=== PATIENT | male | born 1960 | race Caucasian/White ===

== ENCOUNTER 2019-11-09 18:56 | Emergency (ER) | payer OTHER ==
[~2019-11-09] VITALS: Ht 195.6 cm; Wt 113.4 kg
[2019-11-09] MEDS ORDERED: SODIUM CHLORIDE 0.9% 1000ML 1,000 ML IV SCH (19:15)
--- NOTE | 2019-11-09 20:02 | Emergency Department Note ---
History of Present Illnes History of Present Illness Chief Complaint: COVID PUI History of Present Illness This is a 58 year old male Chief Complaint Comment called out by ems for c/o lethargy/diarrhea/hypotension. Per EMS patient is a resident of a [facility]. [facility] told EMS the patient has been more lethargic lately and initially blood pressure was in the 80s systolic. This was resolved with 400 cc crystalloid. Endorses LUQ/LLQ abdominal pain. No hypotension noted in the ED. Shortly after initial exam patient wishes to leave. Historian: Natural Resource Officer/EMS Arrival Mode: EMS Additional Treatment INVESTIGATOR INTERNAL AFFAIRS: n/a Therapeutic Recreation Director Required: No Onset (how long ago): day(s) (1) Location: LLQ pain Quality: Sharp Severity: moderate Onset quality: sudden Duration (how long): day(s) (1) Timing of current episode: constant Progression: worsening Chronicity: new Context: Denies recent illness Relieving factors: none Exacerbating factors: none Associated symptoms: Reports denies other symptoms Treatments prior to arrival: none Past Medical/Family History Physician Review I have reviewed the patient's past medical and family history. Any updates have been documented here. Past Medical History Recent Fever: No Clinical Suspicion of Infectio: No New/Unexplained Change in Ment: No Social History Physically hurt or threatened: No Review of Systems Review of Systems Constitutional: Reports as per HPI, Reports weakness EENTM: Reports no symptoms Cardiovascular: Reports no symptoms Respiratory: Reports no symptoms Gastrointestinal: Reports abdominal pain (LLQ) Genitourinary: Reports no symptoms Musculoskeletal: Reports no symptoms Integumentary: Reports no symptoms Neurological: Reports no symptoms Psychological: Reports no symptoms Endocrine: Reports no symptoms Hematological/Lymphatic: Reports no symptoms Physical Exam Related Data Allergies: Coded Allergies: morphine (Verified Allergy, Unknown, 11/09/19) oxycodone (Verified Allergy, Unknown, 11/09/19) Triage Vital Signs Vital Signs Date Time Temp Pulse Resp B/P (MAP) Pulse Ox O2 Delivery O2 Flow Rate FiO2 11/09/19 19:47 98.5 89 16 98/54 89 Nasal Cannula 3.0 Vital signs reviewed: Yes Physical Exam CONSTITUTIONAL Constitutional: Present well-developed, Present well-nourished HENT HENT: Present normocephalic, Present atraumatic, Present oropharynx clear/moist, Present nose normal HENT L/R: Present left ext ear normal, Present right ext ear normal EYES Eyes: Reports PERRL, Reports conjunctivae normal NECK Neck: Present ROM normal PULMONARY Pulmonary: Present effort normal, Present breath sounds normal CARDIOVASCULAR Cardiovascular: Present regular rhythm, Present heart sounds normal, Present capillary refill normal, Present normal rate GASTROINTESTINAL Abdominal: Present soft, Present bowel sounds normal, Present tender (LLQ) GENITOURINARY Genitourinary: Present exam deferred SKIN Skin: Present warm, Present dry MUSCULOSKELETAL Musculoskeletal: Present ROM normal NEUROLOGICAL Neurological: Present alert, Present oriented x 3, Present no gross motor or sensory deficits PSYCHOLOGICAL Psychological: Present mood/affect normal, Present judgement normal Results Laboratory Lab results reviewed: Yes Imaging Imaging results reviewed: Yes Assessment & Plan Medical Decision Making MDM 58-year-old male presents for left lower quadrant abdominal pain, diarrhea, fatigue. Examination seen for left lower quadrant tenderness on exam. Vital signs initially were 80 systolic for EMS but has since largely improved to normal limits. No hypotension in the ED here. He is currently hemodynamically stable. Initial differential includes diverticulitis versus coronavirus versus gastroenteritis versus dehydration. Patient then shortly refuses further examination or workup. I discussed with him that without an appropriate workup I cannot guarantee that he will not suffer immediate consequences such as at home. He states he understands this and is able to repeat information back to me. He is alert and oriented. He still wishes to be discharged back to [facility]. Patient is refusing further medical care. Reassessment Reassessment time: 20:01 Reassessment NAD well appearing Assessment & Plan Final Impression: (1) Fatigue Depart Disposition: AGAINST MEDICAL ADVICE Last Vital Signs Date Time Temp Pulse Resp B/P (MAP) Pulse Ox O2 Delivery O2 Flow Rate FiO2 11/09/19 19:47 98.5 89 16 98/54 89 Nasal Cannula 3.0 Medications in the ED Sodium Chloride 1,000 ml @ 100 mls/hr Q10H IV ; Start 11/09/19 at 19:15; Stop 12/09/19 at 19:14 JAMES PARKER MD Nov 09, 2019 20:02
[2019-11-09 20:08] LABS: BASOPHILS # (AUTO) 0.1 (0.0-0.1); BASOPHILS % 0.4 % (0.0-1.0); EOSINOPHILS # (AUTO) 0.2 (0.0-0.4); EOSINOPHILS % 1.2 % (0.0-6.0); HEMATOCRIT 28.2 % (38.2-49.6); HEMOGLOBIN 8.9 g/dL (14.0-18.0); LYMPHOCYTES # (AUTO) 0.5 (1.0-3.2); LYMPHOCYTES % 3.7 % (18.0-39.1); MEAN CORPUSCULAR HEMOGLOBIN 26.6 pg (28-32); MEAN CORPUSCULAR HGB CONC 31.6 g/dL (31-35); MEAN CORPUSCULAR VOLUME 84.4 fL (81-99); MONOCYTES # (AUTO) 1.5 (0.2-0.8); MONOCYTES % 11.1 % (4.4-11.3); NEUTROPHILS % 65.7 % (38.7-80.0); PLATELET COUNT 339 x10e3/uL (140-360); RED BLOOD COUNT 3.34 x10e6/uL (4.3-5.7); RED CELL DISTRIBUTION WIDTH 15.9 % (11.7-14.4)
--- NOTE | 2019-11-09 20:27 | NUR ---
EMS CALLED FOR TX BACK TO [facility]; PT IS REFUSING ALL CARE. SPOKE WITH LAILA. ETA APPROX. 30-[address] PARKER EXPLAINED TO THE PT THE RISKS AND THE PT. VERBALIZED UNDERSTANDING
[2019-11-09 20:37] LABS: ALBUMIN 1.6 g/dL (3.5-5.0); ALBUMIN/GLOBULIN RATIO 0.5 (0.8-2.0); ALKALINE PHOSPHATASE 83 IU/L (40-150); ANION GAP 14.2 mmol/L (8-16); BLOOD UREA NITROGEN 25 mg/dL (7-26); BUN/CREATININE RATIO 24 (6-25); CALCIUM 7.5 mg/dL (8.4-10.2); CARBON DIOXIDE 27 mmol/L (22-29); CHLORIDE 99 mmol/L (98-107); CREATININE, SERUM 1.04 mg/dL (0.72-1.25); EST GLOMERULAR FILTRATION RATE > 60 ML/MIN (60-); GLUCOSE 106 mg/dL (74-118); POTASSIUM 3.2 mmol/L (3.5-5.1); SODIUM 137 mmol/L (136-145)
[2019-11-09 20:38] LABS: ALANINE AMINOTRANSFERASE < 6 IU/L (0-55)
== END 2019-11-09 21:22 | disposition left against medical advice (07) ==
LOC: ER 20:30
DX: R53.83 Other fatigue (principal); R10.32 Left lower quadrant pain; R19.7 Diarrhea, unspecified
CPT/HCPCS: 36415; 80053; 83690; 84484; 85025; 99284; J7030

== ENCOUNTER 2019-11-14 08:20 | Inpatient (IN) | payer MEDICARE, OTHER ==
[~2019-11-14] VITALS: Ht 193 cm; Wt 97.2 kg
[2019-11-14] MEDS ORDERED: SODIUM CHLORIDE 0.9% 500ML 500 ML IV STA (08:33)
[2019-11-14 09:07] LABS: BASOPHILS % 0.1 % (0.0-1.0); EOSINOPHILS # (AUTO) 0.1 (0.0-0.4); EOSINOPHILS % 0.3 % (0.0-6.0); HEMATOCRIT 31.3 % (38.2-49.6); LYMPHOCYTES # (AUTO) 1.1 (1.0-3.2); LYMPHOCYTES % 4.8 % (18.0-39.1); MEAN CORPUSCULAR HEMOGLOBIN 26.5 pg (28-32); MEAN CORPUSCULAR HGB CONC 31.9 g/dL (31-35); MONOCYTES # (AUTO) 1.1 (0.2-0.8); MONOCYTES % 4.6 % (4.4-11.3); NEUTROPHILS # (AUTO) 14.4 (2.1-6.9); NEUTROPHILS % 60.9 % (38.7-80.0); PLATELET COUNT 287 x10e3/uL (140-360); RED BLOOD COUNT 3.77 x10e6/uL (4.3-5.7); RED CELL DISTRIBUTION WIDTH 16.1 % (11.7-14.4)
[2019-11-14 09:42] LABS: ALBUMIN 1.7 g/dL (3.5-5.0); ALBUMIN/GLOBULIN RATIO 0.5 (0.8-2.0); ALKALINE PHOSPHATASE 81 IU/L (40-150); ANION GAP 14.6 mmol/L (8-16); BLOOD UREA NITROGEN 20 mg/dL (7-26); BUN/CREATININE RATIO 22 (6-25); CALCIUM 7.7 mg/dL (8.4-10.2); CARBON DIOXIDE 26 mmol/L (22-29); CHLORIDE 98 mmol/L (98-107); CREATININE, SERUM 0.92 mg/dL (0.72-1.25); EST GLOMERULAR FILTRATION RATE > 60 ML/MIN (60-); GLUCOSE 82 mg/dL (74-118); SODIUM 136 mmol/L (136-145)
[2019-11-14] MEDS ORDERED: HALOPERIDOL LACTATE 5 MG/ML VIAL IM STA (09:44)
[2019-11-14 09:46] LABS: ALANINE AMINOTRANSFERASE < 6 IU/L (0-55); POTASSIUM 2.6 mmol/L (3.5-5.1)
[2019-11-14] MEDS ORDERED: CIPROFLOXACIN 400 MG/D5W 200ML 200 ML IV STA (09:48)
[2019-11-14] MEDS ORDERED: METRONIDAZOLE 500MG/NS 100ML 100 ML IV ONE (10:30)
[2019-11-14] MEDS ORDERED: POTASSIUM CHLORIDE 20MEQ/100ML 200 ML IV ONE (11:15)
[2019-11-14] MEDS ORDERED: LORAZEPAM INJ 2 MG/ML VIAL IV ONE (11:45)
[2019-11-14] MEDS ORDERED: LORAZEPAM INJ 2 MG/ML VIAL IM ONE (12:00)
[2019-11-14] MEDS ORDERED: IOPAMIDOL 370 MG/ML 200 ML INFUS..BTL INJ ONE (12:01)
[2019-11-14] MEDS ORDERED: SODIUM CHLORIDE 0.9% 50ML 50 ML ONE (12:01)
[2019-11-14] MEDS ORDERED: ZIPRASIDONE 20 MG VIAL IM STA (12:06)
[2019-11-14] MEDS ORDERED: LORAZEPAM INJ 2 MG/ML VIAL ONE (13:34)
[2019-11-14 17:43] VITALS: BP 98/78
[2019-11-14 17:49] VITALS: BP 98/78
[2019-11-14 18:41] LABS: INR 0.92; PROTHROMBIN TIME 12.8 seconds (11.9-14.5)
[2019-11-14 18:42] LABS: PARTIAL THROMBOPLASTIN TIME 27.5 seconds (23.8-35.5)
[2019-11-14] MEDS ORDERED: ONDANSETRON HCL INJ 2MG/ML 2ML 2 MG/ML VIAL IV PRN (19:30)
[2019-11-14] MEDS ORDERED: SODIUM CHLORIDE 0.9% 1000ML 1,000 ML IV SCH (19:30)
[2019-11-14 20:00] VITALS: BP 93/60
[2019-11-14] MEDS ORDERED: POTASSIUM CHLORIDE 10MEQ/100ML 100 ML INJ ONE (20:50)
[2019-11-14 21:00] VITALS: BP 93/60
[2019-11-14] MEDS: ENOXAPARIN SOD INJ 40 MG/0.4 ML SYR SC SCH (21:15)
[2019-11-14] MEDS: KCL 20MEQ/.9 SOD CHL 1,000 ML IV SCH (21:15)
[2019-11-14] MEDS ORDERED: METRONIDAZOLE 500MG/NS 100ML 100 ML IV SCH (22:00)
[2019-11-14] MEDS: CIPROFLOXACIN 400 MG/D5W 200ML 200 ML IV SCH (22:55)
[2019-11-15] VITALS (10 sets, daily range): BP systolic 90–133; BP diastolic 53–83
[2019-11-15] MEDS: LORAZEPAM INJ 2 MG/ML VIAL IV PRN ×2 (01:25→10:09)
[2019-11-15 05:02] LABS: BASOPHILS % 0.1 % (0.0-1.0); LYMPHOCYTES % 4.1 % (18.0-39.1); MEAN CORPUSCULAR HEMOGLOBIN 26.2 pg (28-32); MEAN CORPUSCULAR VOLUME 84.3 fL (81-99); MONOCYTES # (AUTO) 1.3 (0.2-0.8); MONOCYTES % 5.1 % (4.4-11.3); NEUTROPHILS # (AUTO) 15.1 (2.1-6.9); NEUTROPHILS % 61.7 % (38.7-80.0); PLATELET COUNT 223 x10e3/uL (140-360); RED BLOOD COUNT 3.44 x10e6/uL (4.3-5.7); RED CELL DISTRIBUTION WIDTH 16.2 % (11.7-14.4)
[2019-11-15 05:18] LABS: ALBUMIN 1.6 g/dL (3.5-5.0); ALBUMIN/GLOBULIN RATIO 0.5 (0.8-2.0); ALKALINE PHOSPHATASE 72 IU/L (40-150); ANION GAP 10.6 mmol/L (8-16); BLOOD UREA NITROGEN 17 mg/dL (7-26); BUN/CREATININE RATIO 21 (6-25); CALCIUM 7.4 mg/dL (8.4-10.2); CARBON DIOXIDE 27 mmol/L (22-29); CHLORIDE 103 mmol/L (98-107); CREATININE, SERUM 0.82 mg/dL (0.72-1.25); EST GLOMERULAR FILTRATION RATE > 60 ML/MIN (60-); GLUCOSE 79 mg/dL (74-118); SODIUM 138 mmol/L (136-145)
[2019-11-15 05:32] LABS: ALANINE AMINOTRANSFERASE < 6 IU/L (0-55)
[2019-11-15 05:40] LABS: POTASSIUM 2.6 mmol/L (3.5-5.1)
[2019-11-15] MEDS: METRONIDAZOLE 500MG/NS 100ML 100 ML IV SCH ×3 (05:50→17:42)
[2019-11-15] MEDS ORDERED: POTASSIUM CHLORIDE 20 MEQ TAB CR PO STA (05:51)
[2019-11-15 06:02] LABS: FERRITIN 949.96 ng/mL (21.81-274.66)
[2019-11-15] MEDS ORDERED: POTASSIUM CHLORIDE 20MEQ/100ML 100 ML IV ONE ×4 (06:30→12:30)
[2019-11-15] MEDS ORDERED: POTASSIUM CHLORIDE 20MEQ/15ML UDC NG ONE (06:40)
[2019-11-15 06:41] LABS: ANISOCYTOSIS SLIGHT; BAND NEUTROPHILS % (MANUAL) 1 %; LYMPHOCYTES % (MANUAL) 3 % (19-48); MONOCYTES % (MANUAL) 2 % (3.4-9.0); MYELOCYTES % (MANUAL) 16 % (0-0); NEUTROPHILS % (MANUAL) 78 % (40-74)
[2019-11-15 06:42] LABS: ELLIPTOCYTE, RBC SLIGHT; OVALOCYTES FEW; SCHISTOCYTES RARE
[2019-11-15 06:43] LABS: PLATELET ESTIMATE ADEQUATE; PLATELET MORPHOLOGY COMMENT FEW LARGE; RBC MORPHOLOGY COMMENT ABNORMAL
[2019-11-15] MEDS: LACTOBACILLUS ACIDOPHILUS CAPSULE PO SCH ×2 (08:54→17:42)
[2019-11-15] MEDS: ACETAMINOPHEN 325 MG TAB PO PRN (10:09)
[2019-11-15] MEDS: KCL 20MEQ/.9 SOD CHL 1,000 ML IV SCH ×2 (10:51→22:39)
[2019-11-15] MEDS: CIPROFLOXACIN 400 MG/D5W 200ML 200 ML IV SCH ×2 (11:23→22:04)
[2019-11-15] MEDS ORDERED: OLANZAPINE 5 MG TAB PO PRN (13:30)
[2019-11-15] MEDS: HALOPERIDOL LACTATE 5 MG/ML VIAL IM PRN (14:28)
[2019-11-15] MEDS: ENOXAPARIN SOD INJ 40 MG/0.4 ML SYR SC SCH (17:42)
[2019-11-15] MEDS: LORAZEPAM INJ 2 MG/ML VIAL IM PRN ×2 (17:42→23:52)
[2019-11-15] MEDS: OLANZAPINE 5 MG TAB PO SCH (20:29)
[2019-11-16] VITALS (7 sets, daily range): BP systolic 101–153; BP diastolic 55–86
[2019-11-16] MEDS: METRONIDAZOLE 500MG/NS 100ML 100 ML IV SCH ×3 (00:02→13:00)
[2019-11-16] MEDS ORDERED: ALBUMIN 25% 12.5GM 0.25 GM/ML BTL IV ONE (00:30)
[2019-11-16 05:16] LABS: BASOPHILS % 0.1 % (0.0-1.0); EOSINOPHILS % 0.1 % (0.0-6.0); HEMATOCRIT 27.7 % (38.2-49.6); HEMOGLOBIN 8.6 g/dL (14.0-18.0); LYMPHOCYTES # (AUTO) 1.2 (1.0-3.2); LYMPHOCYTES % 6.4 % (18.0-39.1); MEAN CORPUSCULAR HEMOGLOBIN 26.5 pg (28-32); MEAN CORPUSCULAR VOLUME 85.5 fL (81-99); MONOCYTES # (AUTO) 1.2 (0.2-0.8); MONOCYTES % 6.3 % (4.4-11.3); NEUTROPHILS # (AUTO) 11.2 (2.1-6.9); NEUTROPHILS % 59.1 % (38.7-80.0); PLATELET COUNT 190 x10e3/uL (140-360); RED BLOOD COUNT 3.24 x10e6/uL (4.3-5.7); RED CELL DISTRIBUTION WIDTH 16.2 % (11.7-14.4)
[2019-11-16 05:37] LABS: ANION GAP 11.8 mmol/L (8-16); BLOOD UREA NITROGEN 13 mg/dL (7-26); BUN/CREATININE RATIO 18 (6-25); CALCIUM 7.2 mg/dL (8.4-10.2); CARBON DIOXIDE 23 mmol/L (22-29); CHLORIDE 108 mmol/L (98-107); CREATININE, SERUM 0.74 mg/dL (0.72-1.25); EST GLOMERULAR FILTRATION RATE > 60 ML/MIN (60-); GLUCOSE 75 mg/dL (74-118); SODIUM 140 mmol/L (136-145)
[2019-11-16 05:46] LABS: POTASSIUM 2.8 mmol/L (3.5-5.1)
[2019-11-16] MEDS: LORAZEPAM INJ 2 MG/ML VIAL IM PRN ×3 (05:55→19:57)
[2019-11-16] MEDS: ALBUMIN 25% 12.5GM 0.25 GM/ML BTL IV SCH ×3 (06:00→17:43)
[2019-11-16] MEDS ORDERED: POTASSIUM CHLORIDE 20MEQ/15ML UDC NG ONE (06:55)
[2019-11-16 07:00] LABS: BAND NEUTROPHILS % (MANUAL) 3 %; EOSINOPHILS % (MANUAL) 1 % (0-7); LYMPHOCYTES % (MANUAL) 7 % (19-48); MONOCYTES % (MANUAL) 2 % (3.4-9.0); MYELOCYTES % (MANUAL) 17 % (0-0); NEUTROPHILS % (MANUAL) 70 % (40-74)
[2019-11-16 07:01] LABS: ANISOCYTOSIS SLIGHT; ELLIPTOCYTE, RBC SLIGHT; OVALOCYTES FEW; PLATELET ESTIMATE ADEQUATE; RBC MORPHOLOGY COMMENT ABNORMAL; SCHISTOCYTES RARE
[2019-11-16 07:02] LABS: PLATELET MORPHOLOGY COMMENT NORMAL
[2019-11-16] MEDS: KCL 20MEQ/.9 SOD CHL 1,000 ML IV SCH ×3 (08:39→22:52)
[2019-11-16] MEDS ORDERED: POTASSIUM CHLORIDE 20 MEQ TAB CR PO SCH ×2 (09:00)
[2019-11-16] MEDS: POTASSIUM CHLORIDE 20MEQ/15ML UDC NG SCH ×2 (09:10→17:43)
[2019-11-16] MEDS: LACTOBACILLUS ACIDOPHILUS CAPSULE PO SCH ×2 (09:10→17:43)
[2019-11-16] MEDS: OLANZAPINE 5 MG TAB PO SCH ×2 (09:10→22:30)
[2019-11-16] MEDS: FERROUS SULFATE 325 MG TAB PO SCH ×2 (09:11→17:43)
[2019-11-16] MEDS: CIPROFLOXACIN 400 MG/D5W 200ML 200 ML IV SCH (10:30)
[2019-11-16] MEDS ORDERED: POTASSIUM CHLORIDE 10MEQ/100ML 100 ML INJ STA (14:03)
[2019-11-16] MEDS: HALOPERIDOL LACTATE 5 MG/ML VIAL IM PRN (15:17)
[2019-11-16] MEDS: ENOXAPARIN SOD INJ 40 MG/0.4 ML SYR SC SCH (17:43)
[2019-11-16] MEDS: VANCOMYCIN 250MG/5ML ORAL SOLN PO SCH (17:43)
[2019-11-16] MEDS ORDERED: OLANZAPINE 5 MG TAB PO PRN (19:15)
[2019-11-16] MEDS ORDERED: VANCOMYCIN 250MG/5ML ORAL SOLN PO SCH (19:30)
[2019-11-16] MEDS ORDERED: POTASSIUM CHLORIDE 10MEQ/100ML 100 ML IV ONE (20:00)
[2019-11-17] VITALS (8 sets, daily range): BP systolic 102–153; BP diastolic 46–78
[2019-11-17] MEDS: VANCOMYCIN 250MG/5ML ORAL SOLN PO SCH ×5 (00:31→23:23)
[2019-11-17] MEDS: ALBUMIN 25% 12.5GM 0.25 GM/ML BTL IV SCH ×4 (00:31→17:55)
[2019-11-17] MEDS: KCL 20MEQ/.9 SOD CHL 1,000 ML IV SCH ×2 (04:39→12:00)
[2019-11-17] MEDS: METRONIDAZOLE 500MG/NS 100ML 100 ML IV SCH ×3 (05:08→23:15)
[2019-11-17 05:18] LABS: BASOPHILS % 0.3 % (0.0-1.0); EOSINOPHILS % 0.1 % (0.0-6.0); HEMATOCRIT 26.3 % (38.2-49.6); HEMOGLOBIN 8.1 g/dL (14.0-18.0); LYMPHOCYTES # (AUTO) 1.5 (1.0-3.2); LYMPHOCYTES % 10.1 % (18.0-39.1); MEAN CORPUSCULAR HEMOGLOBIN 26.1 pg (28-32); MEAN CORPUSCULAR HGB CONC 30.8 g/dL (31-35); MEAN CORPUSCULAR VOLUME 84.8 fL (81-99); MONOCYTES # (AUTO) 1.1 (0.2-0.8); MONOCYTES % 7.7 % (4.4-11.3); NEUTROPHILS # (AUTO) 7.9 (2.1-6.9); NEUTROPHILS % 54.7 % (38.7-80.0); PLATELET COUNT 168 x10e3/uL (140-360); RED CELL DISTRIBUTION WIDTH 16.6 % (11.7-14.4)
[2019-11-17] MEDS: LORAZEPAM INJ 2 MG/ML VIAL IM PRN ×2 (05:20→13:00)
[2019-11-17 05:45] LABS: ANION GAP 12.2 mmol/L (8-16); BLOOD UREA NITROGEN 8 mg/dL (7-26); BUN/CREATININE RATIO 10 (6-25); CALCIUM 7.5 mg/dL (8.4-10.2); CARBON DIOXIDE 24 mmol/L (22-29); CHLORIDE 110 mmol/L (98-107); EST GLOMERULAR FILTRATION RATE > 60 ML/MIN (60-); GLUCOSE 76 mg/dL (74-118); POTASSIUM 3.2 mmol/L (3.5-5.1); SODIUM 143 mmol/L (136-145)
[2019-11-17] MEDS: LEVOTHYROXINE SODIUM 50 MCG TAB PO SCH (06:00)
[2019-11-17] MEDS: FERROUS SULFATE 325 MG TAB PO SCH ×2 (08:00→17:55)
[2019-11-17 08:02] LABS: LYMPHOCYTES % (MANUAL) 11 % (19-48); METAMYELOCYTES % (MANUAL) 1 % (0-0); MONOCYTES % (MANUAL) 6 % (3.4-9.0); MYELOCYTES % (MANUAL) 26 % (0-0); NEUTROPHILS % (MANUAL) 56 % (40-74)
[2019-11-17 08:04] LABS: OVALOCYTES FEW
[2019-11-17 08:05] LABS: ELLIPTOCYTE, RBC SLIGHT; PLATELET ESTIMATE ADEQUATE; PLATELET MORPHOLOGY COMMENT NORMAL; POIKILOCYTOSIS SLIGHT; RBC MORPHOLOGY COMMENT ABNORMAL
[2019-11-17] MEDS: OLANZAPINE 5 MG TAB PO SCH ×2 (09:00→21:20)
[2019-11-17] MEDS: LACTOBACILLUS ACIDOPHILUS CAPSULE PO SCH ×2 (09:00→17:55)
[2019-11-17] MEDS: DIVALPROEX SODIUM 250 MG TAB...DR PO SCH ×2 (09:00→17:55)
[2019-11-17] MEDS: POTASSIUM CHLORIDE 20MEQ/15ML UDC NG SCH ×2 (10:30→17:55)
[2019-11-17] MEDS: HALOPERIDOL LACTATE 5 MG/ML VIAL IM PRN (14:05)
[2019-11-17] MEDS: ENOXAPARIN SOD INJ 40 MG/0.4 ML SYR SC SCH (17:55)
[2019-11-17] MEDS: LORAZEPAM 0.5 MG TAB PO SCH ×2 (17:55→21:20)
[2019-11-17] MEDS ORDERED: POTASSIUM CHLORIDE 20MEQ/100ML 100 ML IV ONE (19:30)
[2019-11-18] VITALS (8 sets, daily range): BP systolic 92–161; BP diastolic 54–99
[2019-11-18] MEDS: ALBUMIN 25% 12.5GM 0.25 GM/ML BTL IV SCH ×5 (00:30→23:20)
[2019-11-18] MEDS: KCL 20MEQ/.9 SOD CHL 1,000 ML IV SCH ×3 (00:39→21:30)
[2019-11-18] MEDS: LEVOTHYROXINE SODIUM 50 MCG TAB PO SCH (06:29)
[2019-11-18] MEDS: VANCOMYCIN 250MG/5ML ORAL SOLN PO SCH ×4 (06:29→23:20)
[2019-11-18 06:38] LABS: BASOPHILS # (AUTO) 0.1 (0.0-0.1); BASOPHILS % 0.5 % (0.0-1.0); EOSINOPHILS % 0.1 % (0.0-6.0); HEMATOCRIT 24.2 % (38.2-49.6); HEMOGLOBIN 7.3 g/dL (14.0-18.0); LYMPHOCYTES # (AUTO) 1.3 (1.0-3.2); LYMPHOCYTES % 11.6 % (18.0-39.1); MEAN CORPUSCULAR HEMOGLOBIN 25.7 pg (28-32); MEAN CORPUSCULAR HGB CONC 30.2 g/dL (31-35); MEAN CORPUSCULAR VOLUME 85.2 fL (81-99); MONOCYTES # (AUTO) 1.1 (0.2-0.8); MONOCYTES % 10.4 % (4.4-11.3); NEUTROPHILS # (AUTO) 6.2 (2.1-6.9); NEUTROPHILS % 56.7 % (38.7-80.0); PLATELET COUNT 163 x10e3/uL (140-360); RED BLOOD COUNT 2.84 x10e6/uL (4.3-5.7); RED CELL DISTRIBUTION WIDTH 16.8 % (11.7-14.4)
[2019-11-18] MEDS: HALOPERIDOL LACTATE 5 MG/ML VIAL IM PRN ×2 (06:41→17:49)
[2019-11-18 06:51] LABS: ANION GAP 13.2 mmol/L (8-16); BLOOD UREA NITROGEN < 5 mg/dL (7-26); CALCIUM 7.6 mg/dL (8.4-10.2); CARBON DIOXIDE 23 mmol/L (22-29); CHLORIDE 112 mmol/L (98-107); CREATININE, SERUM 0.69 mg/dL (0.72-1.25); EST GLOMERULAR FILTRATION RATE > 60 ML/MIN (60-); GLUCOSE 72 mg/dL (74-118); POTASSIUM 4.2 mmol/L (3.5-5.1); SODIUM 144 mmol/L (136-145)
[2019-11-18 06:55] LABS: BUN/CREATININE RATIO 7 (6-25)
[2019-11-18] MEDS: METRONIDAZOLE 500MG/NS 100ML 100 ML IV SCH ×3 (07:03→21:30)
[2019-11-18 08:11] LABS: BAND NEUTROPHILS % (MANUAL) 2 %; EOSINOPHILS % (MANUAL) 1 % (0-7); LYMPHOCYTES % (MANUAL) 20 % (19-48); METAMYELOCYTES % (MANUAL) 1 % (0-0); MONOCYTES % (MANUAL) 10 % (3.4-9.0); NEUTROPHILS % (MANUAL) 65 % (40-74)
[2019-11-18 08:12] LABS: PLATELET ESTIMATE ADEQUATE; PLATELET MORPHOLOGY COMMENT NORMAL; RBC MORPHOLOGY COMMENT NORMAL
[2019-11-18] MEDS: POTASSIUM CHLORIDE 20MEQ/15ML UDC NG SCH ×2 (08:38→17:00)
[2019-11-18] MEDS: LACTOBACILLUS ACIDOPHILUS CAPSULE PO SCH ×2 (08:38→17:00)
[2019-11-18] MEDS: DIVALPROEX SODIUM 250 MG TAB...DR PO SCH ×2 (08:38→17:00)
[2019-11-18] MEDS: LORAZEPAM 0.5 MG TAB PO SCH ×3 (08:38→21:28)
[2019-11-18] MEDS: OLANZAPINE 5 MG TAB PO SCH ×2 (08:38→21:28)
[2019-11-18] MEDS: FERROUS SULFATE 325 MG TAB PO SCH ×2 (08:38→17:00)
[2019-11-18] MEDS: ENOXAPARIN SOD INJ 40 MG/0.4 ML SYR SC SCH (17:00)
[2019-11-18] MEDS: ACETAMINOPHEN 325 MG TAB PO PRN (23:17)
[2019-11-19] VITALS (8 sets, daily range): BP systolic 123–146; BP diastolic 69–75
[2019-11-19] MEDS: METRONIDAZOLE 500MG/NS 100ML 100 ML IV SCH ×3 (05:05→22:00)
[2019-11-19] MEDS: VANCOMYCIN 250MG/5ML ORAL SOLN PO SCH ×3 (06:30→17:13)
[2019-11-19] MEDS: LEVOTHYROXINE SODIUM 50 MCG TAB PO SCH (06:30)
[2019-11-19] MEDS: ALBUMIN 25% 12.5GM 0.25 GM/ML BTL IV SCH ×3 (06:40→18:23)
[2019-11-19] MEDS: POTASSIUM CHLORIDE 20MEQ/15ML UDC NG SCH ×2 (08:30→16:17)
[2019-11-19] MEDS: OLANZAPINE 5 MG TAB PO SCH ×2 (08:30→21:10)
[2019-11-19] MEDS: DIVALPROEX SODIUM 250 MG TAB...DR PO SCH ×2 (08:30→16:17)
[2019-11-19] MEDS: FERROUS SULFATE 325 MG TAB PO SCH ×2 (08:30→16:17)
[2019-11-19] MEDS: LORAZEPAM 0.5 MG TAB PO SCH ×3 (08:30→21:10)
[2019-11-19] MEDS: LACTOBACILLUS ACIDOPHILUS CAPSULE PO SCH ×2 (08:30→16:17)
[2019-11-19] MEDS: KCL 20MEQ/.9 SOD CHL 1,000 ML IV SCH ×2 (10:21→16:39)
[2019-11-19 13:29] LABS: CLARITY,URINE SL CLOUDY (CLEAR); COLOR,URINE YELLOW (YELLOW); LEUKOCYTE ESTERASE ,URINE NEGATIVE (NEGATIVE)
[2019-11-19 13:30] LABS: BILIRUBIN,URINE NEGATIVE (NEGATIVE); KETONES,URINE NEGATIVE (NEGATIVE); NITRITE,URINE POSITIVE (NEGATIVE); PROTEIN,URINE DIPSTICK NEGATIVE (NEGATIVE); URINE UROBILINOGEN 0.2 mg/dL (0.2 - 1)
[2019-11-19 13:41] LABS: BACTERIA,URINE FEW /HPF; EPITHELIAL CELLS,URINE FEW /LPF; RBC,URINE 0-5 /HPF (0-5); WBC,URINE (MAN) 0-5 /HPF (0-5)
[2019-11-19] MEDS: ENOXAPARIN SOD INJ 40 MG/0.4 ML SYR SC SCH (16:17)
[2019-11-20] VITALS (7 sets, daily range): BP systolic 122–139; BP diastolic 63–86
[2019-11-20] MEDS: ALBUMIN 25% 12.5GM 0.25 GM/ML BTL IV SCH ×4 (00:25→18:31)
[2019-11-20] MEDS: KCL 20MEQ/.9 SOD CHL 1,000 ML IV SCH ×3 (00:30→12:39)
[2019-11-20] MEDS: METRONIDAZOLE 500MG/NS 100ML 100 ML IV SCH ×3 (05:13→21:39)
[2019-11-20 05:28] LABS: BASOPHILS # (AUTO) 0.1 (0.0-0.1); BASOPHILS % 0.6 % (0.0-1.0); EOSINOPHILS % 0.1 % (0.0-6.0); HEMATOCRIT 21.9 % (38.2-49.6); LYMPHOCYTES # (AUTO) 1.1 (1.0-3.2); LYMPHOCYTES % 8.9 % (18.0-39.1); MEAN CORPUSCULAR HEMOGLOBIN 26.1 pg (28-32); MEAN CORPUSCULAR HGB CONC 30.6 g/dL (31-35); MEAN CORPUSCULAR VOLUME 85.2 fL (81-99); MONOCYTES # (AUTO) 1.4 (0.2-0.8); MONOCYTES % 11.3 % (4.4-11.3); NEUTROPHILS # (AUTO) 9.2 (2.1-6.9); NEUTROPHILS % 75.2 % (38.7-80.0); PLATELET COUNT 83 x10e3/uL (140-360); RED BLOOD COUNT 2.57 x10e6/uL (4.3-5.7); RED CELL DISTRIBUTION WIDTH 17.1 % (11.7-14.4)
[2019-11-20 05:31] LABS: HEMOGLOBIN 6.7 g/dL (14.0-18.0)
[2019-11-20] MEDS ORDERED: SODIUM CHLORIDE 0.9% 250ML 250 ML IV ONE (05:45)
[2019-11-20 05:57] LABS: ANION GAP 11.3 mmol/L (8-16); BLOOD UREA NITROGEN 5 mg/dL (7-26); BUN/CREATININE RATIO 7 (6-25); CARBON DIOXIDE 24 mmol/L (22-29); CHLORIDE 107 mmol/L (98-107); CREATININE, SERUM 0.72 mg/dL (0.72-1.25); EST GLOMERULAR FILTRATION RATE > 60 ML/MIN (60-); GLUCOSE 77 mg/dL (74-118); POTASSIUM 3.3 mmol/L (3.5-5.1); SODIUM 139 mmol/L (136-145)
[2019-11-20] MEDS: VANCOMYCIN 250MG/5ML ORAL SOLN PO SCH ×4 (06:29→18:31)
[2019-11-20] MEDS: LEVOTHYROXINE SODIUM 50 MCG TAB PO SCH (06:29)
[2019-11-20] MEDS: DIVALPROEX SODIUM 250 MG TAB...DR PO SCH ×2 (08:22→18:30)
[2019-11-20] MEDS: POTASSIUM CHLORIDE 20MEQ/15ML UDC NG SCH ×2 (08:22→18:30)
[2019-11-20] MEDS: OLANZAPINE 5 MG TAB PO SCH ×2 (08:22→20:20)
[2019-11-20] MEDS: LORAZEPAM 0.5 MG TAB PO SCH ×3 (08:22→20:20)
[2019-11-20] MEDS: LACTOBACILLUS ACIDOPHILUS CAPSULE PO SCH ×2 (08:22→18:30)
[2019-11-20] MEDS: FERROUS SULFATE 325 MG TAB PO SCH ×2 (08:22→18:30)
[2019-11-20] MEDS ORDERED: SODIUM CHLORIDE 0.9% 250ML 250 ML ONE (09:43)
[2019-11-20 10:23] LABS: % IRON SATURATION 42 % (15-50); IRON 44 ug/dL (65-175); TOTAL IRON BINDING CAPACITY 104 ug/dL (261-478); TRANSFERRIN 74 mg/dL (174-364)
[2019-11-20] MEDS ORDERED: IRON SUCROSE 100 MG in SODIUM CHLORIDE 0.9% 100 ML 100 ML IV ONE (12:00)
[2019-11-20] MEDS: ACETAMINOPHEN 325 MG TAB PO PRN (20:21)
[2019-11-21] VITALS (8 sets, daily range): BP systolic 115–143; BP diastolic 66–77
[2019-11-21 05:10] LABS: BASOPHILS # (AUTO) 0.1 (0.0-0.1); BASOPHILS % 1.3 % (0.0-1.0); EOSINOPHILS % 0.2 % (0.0-6.0); LYMPHOCYTES # (AUTO) 1.1 (1.0-3.2); LYMPHOCYTES % 22.7 % (18.0-39.1); MEAN CORPUSCULAR HEMOGLOBIN 27.5 pg (28-32); MEAN CORPUSCULAR HGB CONC 31.8 g/dL (31-35); MEAN CORPUSCULAR VOLUME 86.3 fL (81-99); MONOCYTES # (AUTO) 0.9 (0.2-0.8); MONOCYTES % 17.9 % (4.4-11.3); NEUTROPHILS # (AUTO) 2.5 (2.1-6.9); NEUTROPHILS % 52.2 % (38.7-80.0); PLATELET COUNT 77 x10e3/uL (140-360); RED BLOOD COUNT 2.55 x10e6/uL (4.3-5.7); RED CELL DISTRIBUTION WIDTH 16.6 % (11.7-14.4)
[2019-11-21 05:29] LABS: ALBUMIN 3.3 g/dL (3.5-5.0); ALBUMIN/GLOBULIN RATIO 1.9 (0.8-2.0); ALKALINE PHOSPHATASE 38 IU/L (40-150); ANION GAP 11.4 mmol/L (8-16); BLOOD UREA NITROGEN 7 mg/dL (7-26); BUN/CREATININE RATIO 10 (6-25); CALCIUM 7.8 mg/dL (8.4-10.2); CARBON DIOXIDE 22 mmol/L (22-29); CHLORIDE 110 mmol/L (98-107); EST GLOMERULAR FILTRATION RATE > 60 ML/MIN (60-); GLUCOSE 75 mg/dL (74-118); POTASSIUM 4.4 mmol/L (3.5-5.1); SODIUM 139 mmol/L (136-145)
[2019-11-21] MEDS: ALBUMIN 25% 12.5GM 0.25 GM/ML BTL IV SCH ×4 (05:29→18:35)
[2019-11-21] MEDS: METRONIDAZOLE 500MG/NS 100ML 100 ML IV SCH ×3 (05:29→22:43)
[2019-11-21 05:32] LABS: ALANINE AMINOTRANSFERASE < 6 IU/L (0-55)
[2019-11-21] MEDS: LEVOTHYROXINE SODIUM 50 MCG TAB PO SCH (05:34)
[2019-11-21] MEDS: VANCOMYCIN 250MG/5ML ORAL SOLN PO SCH ×4 (05:34→18:35)
[2019-11-21] MEDS: KCL 20MEQ/.9 SOD CHL 1,000 ML IV SCH ×2 (08:39→21:39)
[2019-11-21 09:05] LABS: ANISOCYTOSIS SLIGHT; EOSINOPHILS % (MANUAL) 2 % (0-7); LYMPHOCYTES % (MANUAL) 20 % (19-48); MONOCYTES % (MANUAL) 10 % (3.4-9.0); MYELOCYTES % (MANUAL) 4 % (0-0); NEUTROPHILS % (MANUAL) 64 % (40-74)
[2019-11-21 09:06] LABS: BURR CELLS SLIGHT; OVALOCYTES FEW; RBC MORPHOLOGY COMMENT ABNORMAL; SCHISTOCYTES RARE
[2019-11-21 09:07] LABS: ACANTHOCYTES FEW; PLATELET ESTIMATE MODERATELY DECREASED; PLATELET MORPHOLOGY COMMENT NORMAL
[2019-11-21 09:08] LABS: ELLIPTOCYTE, RBC SLIGHT
[2019-11-21] MEDS: FERROUS SULFATE 325 MG TAB PO SCH ×2 (09:13→18:35)
[2019-11-21] MEDS: ACETAMINOPHEN 325 MG TAB PO PRN (09:14)
[2019-11-21] MEDS: LACTOBACILLUS ACIDOPHILUS CAPSULE PO SCH ×2 (09:14→18:35)
[2019-11-21] MEDS: POTASSIUM CHLORIDE 20MEQ/15ML UDC NG SCH ×2 (09:14→18:35)
[2019-11-21] MEDS: OLANZAPINE 5 MG TAB PO SCH ×2 (09:14→21:39)
[2019-11-21] MEDS: DIVALPROEX SODIUM 250 MG TAB...DR PO SCH ×2 (09:14→18:35)
[2019-11-21] MEDS: LORAZEPAM 0.5 MG TAB PO SCH ×3 (09:14→21:39)
[2019-11-21] MEDS ORDERED: IRON SUCROSE 100 MG in SODIUM CHLORIDE 0.9% 100 ML 100 ML IV ONE (11:30)
[2019-11-21] MEDS ORDERED: SODIUM CHLORIDE 0.9% 250ML 250 ML IV ONE (11:40)
[2019-11-21] MEDS ORDERED: SODIUM CHLORIDE 0.9% 250ML 250 ML ONE (15:42)
[2019-11-22] VITALS: BP 129/65
[2019-11-22] MEDS: VANCOMYCIN 250MG/5ML ORAL SOLN PO SCH ×3 (00:44→12:05)
[2019-11-22] MEDS: ALBUMIN 25% 12.5GM 0.25 GM/ML BTL IV SCH ×3 (00:44→11:55)
[2019-11-22 04:00] VITALS: BP 127/67
[2019-11-22] MEDS: METRONIDAZOLE 500MG/NS 100ML 100 ML IV SCH (05:48)
[2019-11-22] MEDS: LEVOTHYROXINE SODIUM 50 MCG TAB PO SCH (05:48)
[2019-11-22] MEDS: KCL 20MEQ/.9 SOD CHL 1,000 ML IV SCH (05:48)
[2019-11-22 07:58] VITALS: BP 107/59
[2019-11-22 08:01] VITALS: BP 107/59
[2019-11-22] MEDS: FERROUS SULFATE 325 MG TAB PO SCH (09:00)
[2019-11-22] MEDS: POTASSIUM CHLORIDE 20MEQ/15ML UDC NG SCH (09:00)
[2019-11-22 09:22] LABS: BASOPHILS # (AUTO) 0.1 (0.0-0.1); BASOPHILS % 1.2 % (0.0-1.0); EOSINOPHILS # (AUTO) 0.1 (0.0-0.4); EOSINOPHILS % 0.7 % (0.0-6.0); HEMATOCRIT 26.3 % (38.2-49.6); HEMOGLOBIN 8.3 g/dL (14.0-18.0); LYMPHOCYTES # (AUTO) 1.3 (1.0-3.2); MEAN CORPUSCULAR HEMOGLOBIN 26.6 pg (28-32); MEAN CORPUSCULAR HGB CONC 31.6 g/dL (31-35); MEAN CORPUSCULAR VOLUME 84.3 fL (81-99); MONOCYTES # (AUTO) 0.9 (0.2-0.8); MONOCYTES % 11.9 % (4.4-11.3); NEUTROPHILS # (AUTO) 4.9 (2.1-6.9); NEUTROPHILS % 66.4 % (38.7-80.0); PLATELET COUNT 106 x10e3/uL (140-360); RED BLOOD COUNT 3.12 x10e6/uL (4.3-5.7); RED CELL DISTRIBUTION WIDTH 16.7 % (11.7-14.4)
[2019-11-22] MEDS ORDERED: VANCOCIN HCL250 MG PO (09:22)
[2019-11-22] MEDS ORDERED: Lactobacillus Acidophilus PO (09:22)
[2019-11-22] MEDS ORDERED: SYNTHROID50 MCG PO (09:22)
[2019-11-22] MEDS ORDERED: DEPAKOTE250 MG PO (09:22)
[2019-11-22] MEDS ORDERED: FERROUS SULFAT325 MG PO (09:22)
[2019-11-22] MEDS ORDERED: FLAGYL500 MG PO (09:22)
[2019-11-22] MEDS ORDERED: LORAZEPAM2 MG/1 M1 IM (09:23)
[2019-11-22] MEDS: LACTOBACILLUS ACIDOPHILUS CAPSULE PO SCH (09:29)
[2019-11-22] MEDS: DIVALPROEX SODIUM 250 MG TAB...DR PO SCH (09:29)
[2019-11-22] MEDS: LORAZEPAM 0.5 MG TAB PO SCH (09:29)
[2019-11-22] MEDS: OLANZAPINE 5 MG TAB PO SCH (09:29)
[2019-11-22 09:47] LABS: ANION GAP 14.8 mmol/L (8-16); BLOOD UREA NITROGEN 7 mg/dL (7-26); BUN/CREATININE RATIO 9 (6-25); CALCIUM 8.7 mg/dL (8.4-10.2); CARBON DIOXIDE 23 mmol/L (22-29); CHLORIDE 106 mmol/L (98-107); CREATININE, SERUM 0.74 mg/dL (0.72-1.25); EST GLOMERULAR FILTRATION RATE > 60 ML/MIN (60-); GLUCOSE 79 mg/dL (74-118); POTASSIUM 3.8 mmol/L (3.5-5.1); SODIUM 140 mmol/L (136-145)
[2019-11-22 11:30] VITALS: BP 122/62
[2019-11-22] MEDS: LORAZEPAM INJ 2 MG/ML VIAL IM PRN (12:59)
== END 2019-11-22 13:29 | DRG 871 ==
LOC: ER 08:22 → ERHOLD 14:40 → MED/SURG2 17:19
PROVIDERS: ADMIT Internal Medicine; ATTEND Internal Medicine
PROC: 30233N1 Transfusion of Nonautologous Red Blood Cells into Peripheral Vein, Percutaneous Approach (ICD-10-PCS; 2019-11-14)
PROC: 02HV33Z Insertion of Infusion Device into Superior Vena Cava, Percutaneous Approach (ICD-10-PCS; principal; 2019-11-16)
DX: A41.89 Other specified sepsis (principal); J69.0 Pneumonitis due to inhalation of food and vomit; A04.72 Enterocolitis due to Clostridium difficile, not specified as recurrent; I50.32 Chronic diastolic (congestive) heart failure; F03.91 Unspecified dementia, unspecified severity, with behavioral disturbance; E87.6 Hypokalemia; F39 Unspecified mood [affective] disorder; I11.0 Hypertensive heart disease with heart failure; D50.9 Iron deficiency anemia, unspecified; I25.10 Atherosclerotic heart disease of native coronary artery without angina pectoris; Z11.59 Encounter for screening for other viral diseases; E03.9 Hypothyroidism, unspecified; F31.9 Bipolar disorder, unspecified
CPT/HCPCS: 36415; 36569; 70450; 71045; 74177; 74230; 80048; 80053; 81001; 82270; 82607; 82728; 82746; 82948; 83540; 83605; 83630; 83735; 84443; 84466; 84484; 85025; 85045; 85610; 85730; 86850; 86900; 86920; 87040; 87045; 87177; 87493; 93005; 93041; 96361; 99284; J1630; J1650; J1756; J2060; J3480; J3486; J7030; J7050; P9016; Q9967; U0002

== ENCOUNTER 2019-12-27 19:06 | Inpatient (IN) | payer MEDICARE, OTHER ==
[~2019-12-27] VITALS: Ht 193 cm; Wt 97.1 kg
[~2019-12-27 19:06] MED LIST: DEPAKOTE250 MG PO; FERROUS SULFAT325 MG PO; FLAGYL500 MG PO; LORAZEPAM2 MG/1 M1 IM; Lactobacillus Acidophilus PO; SYNTHROID50 MCG PO; VANCOCIN HCL250 MG PO
[2019-12-27] MEDS ORDERED: CEFEPIME 2 GM/NS 0.9% 100 ML 100 ML IV ONE (19:15)
[2019-12-27] MEDS ORDERED: ACETAMINOPHEN 325 MG TAB PO ONE (19:15)
[2019-12-27] MEDS ORDERED: SODIUM CHLORIDE 0.9% 1000ML 1,000 ML IV ONE ×2 (19:15→21:15)
--- OUTSIDE RECORDS SUMMARY | 2019-12-27 19:20 | XMS REPORT | Clinical Summary ---
Author Author CATHIE AdonitB[facility] HospitalLattice Engines [facility] HospitalOrganic To [facility]Ast[facility] Address Unknown Phone Unavailable Care Team Providers Care Transit Planner Name Role Phone Evelio Beasley Unavailable Allergies Comments Active Allergy Reactions Severity Noted Date Codeine 06/18/2019 Morphine 06/18/2019 Medications End Date Status Medication Sig Dispensed Refills Start Date Active lidocaine (XYLOCAINE) 5 % Apply 1 0 03/30 ointment application 0 topically as needed. Active cyclobenzaprine Take 10 mg by 1 (FLEXERIL) 10 MG tablet mouth 3 0 (three) times daily as needed. Active simvastatin (ZOCOR) 20 MG Take 20 mg by 0 tablet mouth nightly. Active omeprazole (PRILOSEC) 20 Take 20 mg by 0 MG capsule mouth daily. Active aspirin 81 MG EC tablet Take 81 mg by 0 mouth daily. Active amLODIPine (NORVASC) 5 MG Take 5 mg by 0 tablet mouth daily. Active QUEtiapine (SEROQUEL) 25 Take 1 tablet 0 07/10 MG tablet (25 mg total) 0 by mouth 2 (two) times daily. Active acetaminophen (TYLENOL) Take 2 30 tablet 0 325 MG tablet tablets (650 0 mg total) by mouth every 6 (six) hours as needed. Active apixaban (ELIQUIS) 5 mg Take 1 tablet 0 Tab tablet (5 mg total) 0 by mouth 2 (two) times daily. Active lactulose (CHRONULAC) 20 Take 30 mLs 0 07/10 gram/30 mL solution (20 g total) 0 by mouth 3 (three) times daily. 07/11/2020 Active levothyroxine (SYNTHROID, Take 1 tablet 0 06/27 LEVOTHROID) 175 MCG (175 mcg 0 tablet total) by mouth Every morning on an empty stomach. Active magnesium oxide (MAG-OX) Take 1 tablet 0 07/11 400 mg (241.3 mg (400 mg 0 magnesium) tablet total) by mouth daily. Active metoprolol tartrate 75 mg Take 75 mg by 0 06/27 Tab mouth 2 (two) 0 times daily. Active simethicone (MYLICON) 80 Take 2 30 tablet 0 0 MG chewable tablet tablets (160 0 mg total) by mouth 2 (two) times daily. Active spironolactone Take 1 tablet 0 (ALDACTONE) 50 MG tablet (50 mg total) 0 by mouth daily. Active tamsulosin (FLOMAX) 0.4 Take 1 0 mg Cap 24 hr capsule capsule (0.4 0 mg total) by mouth daily. 07/11/2019 Discontinued QUEtiapine (SEROQUEL) 25 Take 25 mg by 3 04/14 MG tablet mouth 3 0 (three) times daily. 07/11/2019 Discontinued metoprolol succinate Take 100 mg 1 (TOPROL-XL) 100 MG 24 hr by mouth 0 tablet daily. 07/11/2019 Discontinued potassium chloride 20 mEq Take 1 tablet 0 TbER by mouth daily. 07/11/2019 Discontinued furosemide (LASIX) 40 MG Take 40 mg by 0 tablet mouth daily. Active Problems Problem Noted Date Ileus 06/30/2019 Acute on chronic congestive heart failure 06/19/2019 Chronic type I dissection of aorta 06/18/2019 Chronic kidney disease 06/18/2019 History of ascending aortic repair 06/18/2019 History of recent pneumonia 06/18/2019 Cognitive impairment 06/18/2019 Diabetes mellitus 06/18/2019 DVT (deep venous thrombosis) 06/18/2019 Hypertension 06/18/2019 Morbid obesity 06/18/2019 Leukocytosis 06/18/2019 Ileus 06/18/2019 Coronary artery disease 06/18/2019 Ischemic cardiomyopathy 06/18/2019 Hypoventilation associated with obesity 06/18/2019 Depression 06/18/2019 Hypospadias 06/18/2019 Encephalopathy 06/18/2019 Hypokalemia 06/18/2019 Acute renal failure superimposed on chronic kidney di sease 06/18/2019 Peripheral venous insufficiency 12/13/2018 Degeneration of lumbosacral intervertebral disc 12/28 Gastroesophageal reflux disease 01/18/2015 Generalized osteoarthritis 01/18/2015 Hyperlipidemia 01/18/2015 Thoracic radiculopathy 01/18/2015 Encounters Care Team Description Date Type Specialty 06/19/2019 Travel Ameya Alexander 06/18/2019 Anesthesia Intensive Care Event Nestor Guerrero MD Stage 1 chronic kidney disease; Dissection of thoracoabdominal aorta (HCC); Hypertension, unspecified type; Leukocytosis, unspecified type; Anemia, unspecified type; Acute deep vein thrombosis (DVT) of lower extremity, unspecified laterality, unspecified vein (HCC); Cough; Coronary artery disease involving [place] coronary artery of [place] heart with angina pectoris (HCC); Ischemic cardiomyopathy; Morbid obesity (HCC); Ileus (HCC) 06/18/2019 Hospital Cardiology - Encounter 07/11/2019 06/18/2019 Orders Only General Internal Me dicine after 12/26/2018 Social History Date Tobacco Use Types Packs/Day Years Used Former Smoker Cigarettes Smokeless Tobacco: Never Used Sex Assigned at Date Recorded Not on file Industry Job Start Date Occupation Not on file Not on file Not on file Travel End Travel History Travel Start No recent travel history available. Last Filed Vital Signs Time Taken Vital Sign Reading 07/11/2019 11:47 AM CDT Blood Pressure 145/67 07/11/2019 11:47 AM CDT Pulse 61 07/11/2019 11:47 AM CDT Temperature 35.8 C (96.4 F) 07/11/2019 11:47 AM CDT Respiratory Rate 18 07/11/2019 11:47 AM CDT Oxygen Saturation 97% 06/22/2019 7:17 AM CDT Inhaled Oxygen 21% Concentration 07/03/2019 4:16 AM CDT Weight 130.7 kg (288 lb 2.3 oz) 06/19/2019 10:15 AM CDT Height 195.6 cm (6' 5") 07/03/2019 4:16 AM CDT Body Mass Index 34.17 Plan of Treatment Not on file Procedures Comments Procedure Name Priority Date/Time Associated Diag nosis RHYTHM STRIP - SCAN 07/14/2019 2:50 PM CDT RHYTHM STRIP - SCAN 07/13/2019 11:11 AM CDT XR ABDOMEN / KUB 1 VIEW Routine 07/11/2019 7:04 AM CDT PHOSPHORUS Routine 07/11/2019 4:42 AM CDT APTT Routine 07/11/2019 4:42 AM CDT PROTHROMBIN TIME/INR Routine 07/11/2019 4:42 AM CDT MAGNESIUM Routine 07/11/2019 4:42 AM CDT BASIC METABOLIC PANEL (7) Routine 07/11/2019 4:42 AM CDT CBC (HEMOGRAM ONLY) Routine 07/11/2019 4:42 AM CDT TSH Routine 07/10/2019 6:38 PM CDT XR ABDOMEN / KUB 1 VIEW Routine 07/10/2019 6:57 AM CDT PHOSPHORUS Routine 07/10/2019 4:39 AM CDT APTT Routine 07/10/2019 4:39 AM CDT PROTHROMBIN TIME/INR Routine 07/10/2019 4:39 AM CDT MAGNESIUM Routine 07/10/2019 4:39 AM CDT BASIC METABOLIC PANEL (7) Routine 07/10/2019 4:39 AM CDT CBC (HEMOGRAM ONLY) Routine 07/10/2019 4:39 AM CDT XR ABDOMEN / KUB 1 VIEW Routine 07/09/2019 6:34 AM CDT PHOSPHORUS Routine 07/09/2019 4:29 AM CDT APTT Routine 07/09/2019 4:29 AM CDT PROTHROMBIN TIME/INR Routine 07/09/2019 4:29 AM CDT MAGNESIUM Routine 07/09/2019 4:29 AM CDT BASIC METABOLIC PANEL (7) Routine 07/09/2019 4:29 AM CDT CBC (HEMOGRAM ONLY) Routine 07/09/2019 4:29 AM CDT PHOSPHORUS Routine 07/08/2019 4:25 AM CDT APTT Routine 07/08/2019 4:25 AM CDT PROTHROMBIN TIME/INR Routine 07/08/2019 4:25 AM CDT MAGNESIUM Routine 07/08/2019 4:25 AM CDT BASIC METABOLIC PANEL (7) Routine 07/08/2019 4:25 AM CDT CBC (HEMOGRAM ONLY) Routine 07/08/2019 4:25 AM CDT XR ABDOMEN / KUB 1 VIEW Routine 07/08/2019 4:10 AM CDT MAGNESIUM STAT 07/07/2019 2:44 PM CDT POTASSIUM Routine 07/07/2019 2:44 PM CDT PHOSPHORUS Routine 07/07/2019 7:24 AM CDT APTT Routine 07/07/2019 7:24 AM CDT PROTHROMBIN TIME/INR Routine 07/07/2019 7:24 AM CDT MAGNESIUM Routine 07/07/2019 7:24 AM CDT BASIC METABOLIC PANEL (7) Routine 07/07/2019 7:24 AM CDT CBC (HEMOGRAM ONLY) Routine 07/07/2019 7:24 AM CDT XR ABDOMEN / KUB 1 VIEW Routine 07/07/2019 4:01 AM CDT PHOSPHORUS Routine 07/06/2019 5:44 AM CDT APTT Routine 07/06/2019 5:44 AM CDT PROTHROMBIN TIME/INR Routine 07/06/2019 5:44 AM CDT MAGNESIUM Routine 07/06/2019 5:44 AM CDT BASIC METABOLIC PANEL (7) Routine 07/06/2019 5:44 AM CDT CBC (HEMOGRAM ONLY) Routine 07/06/2019 5:44 AM CDT XR ABDOMEN / KUB 1 VIEW Routine 07/06/2019 4:01 AM CDT POTASSIUM STAT 07/05/2019 5:18 PM CDT XR ABDOMEN / KUB 1 VIEW Routine 07/05/2019 7:17 AM CDT PHOSPHORUS Routine 07/05/2019 3:58 AM CDT APTT Routine 07/05/2019 3:58 AM CDT PROTHROMBIN TIME/INR Routine 07/05/2019 3:58 AM CDT MAGNESIUM Routine 07/05/2019 3:58 AM CDT BASIC METABOLIC PANEL (7) Routine 07/05/2019 3:58 AM CDT CBC (HEMOGRAM ONLY) Routine 07/05/2019 3:58 AM CDT POTASSIUM Routine 07/04/2019 4:01 PM CDT TSH Routine 07/04/2019 4:30 AM CDT PHOSPHORUS Routine 07/04/2019 4:30 AM CDT APTT Routine 07/04/2019 4:30 AM CDT PROTHROMBIN TIME/INR Routine 07/04/2019 4:30 AM CDT MAGNESIUM Routine 07/04/2019 4:30 AM CDT BASIC METABOLIC PANEL (7) Routine 07/04/2019 4:30 AM CDT CBC (HEMOGRAM ONLY) Routine 07/04/2019 4:30 AM CDT MAGNESIUM Routine 07/03/2019 4:18 PM CDT POTASSIUM Routine 07/03/2019 4:18 PM CDT XR ABDOMEN / KUB 1 VIEW Routine 07/03/2019 7:52 AM CDT PHOSPHORUS Routine 07/03/2019 5:32 AM CDT APTT Routine 07/03/2019 5:32 AM CDT PROTHROMBIN TIME/INR Routine 07/03/2019 5:32 AM CDT MAGNESIUM Routine 07/03/2019 5:32 AM CDT BASIC METABOLIC PANEL (7) Routine 07/03/2019 5:32 AM CDT CBC (HEMOGRAM ONLY) Routine 07/03/2019 5:32 AM CDT XR ABDOMEN / KUB 1 VIEW Routine 07/02/2019 6:18 AM CDT PHOSPHORUS Routine 07/02/2019 4:52 AM CDT APTT Routine 07/02/2019 4:52 AM CDT PROTHROMBIN TIME/INR Routine 07/02/2019 4:52 AM CDT MAGNESIUM Routine 07/02/2019 4:52 AM CDT BASIC METABOLIC PANEL (7) Routine 07/02/2019 4:52 AM CDT CBC (HEMOGRAM ONLY) Routine 07/02/2019 4:52 AM CDT XR ABDOMEN / KUB 1 VIEW Routine 07/01/2019 6:47 AM CDT PHOSPHORUS Routine 07/01/2019 4:41 AM CDT APTT Routine 07/01/2019 4:41 AM CDT PROTHROMBIN TIME/INR Routine 07/01/2019 4:41 AM CDT MAGNESIUM Routine 07/01/2019 4:41 AM CDT BASIC METABOLIC PANEL (7) Routine 07/01/2019 4:41 AM CDT CBC (HEMOGRAM ONLY) Routine 07/01/2019 4:41 AM CDT POTASSIUM Routine 06/30/2019 5:24 PM CDT MAGNESIUM Routine 06/30/2019 5:24 PM CDT XR ABDOMEN / KUB 1 VIEW Routine 06/30/2019 7:02 AM CDT PHOSPHORUS Routine 06/30/2019 4:23 AM CDT APTT Routine 06/30/2019 4:23 AM CDT PROTHROMBIN TIME/INR Routine 06/30/2019 4:23 AM CDT MAGNESIUM Routine 06/30/2019 4:23 AM CDT BASIC METABOLIC PANEL (7) Routine 06/30/2019 4:23 AM CDT CBC (HEMOGRAM ONLY) Routine 06/30/2019 4:23 AM CDT POTASSIUM Routine 06/29/2019 1:04 PM CDT PHOSPHORUS Routine 06/29/2019 4:57 AM CDT APTT Routine 06/29/2019 4:57 AM CDT PROTHROMBIN TIME/INR Routine 06/29/2019 4:57 AM CDT MAGNESIUM Routine 06/29/2019 4:57 AM CDT BASIC METABOLIC PANEL (7) Routine 06/29/2019 4:57 AM CDT CBC (HEMOGRAM ONLY) Routine 06/29/2019 4:[address] ABDOMEN/PELVIS WITHOUT Routine 06/29/2019 IV CONTRAST 1:07 AM CDT POTASSIUM Routine 06/28/2019 10:18 PM CDT XR ABDOMEN / KUB 1 VIEW DAVID 06/28/2019 1:57 PM CDT PHOSPHORUS Routine 06/28/2019 5:26 AM CDT APTT Routine 06/28/2019 5:26 AM CDT PROTHROMBIN TIME/INR Routine 06/28/2019 5:26 AM CDT MAGNESIUM Routine 06/28/2019 5:26 AM CDT BASIC METABOLIC PANEL (7) Routine 06/28/2019 5:26 AM CDT CBC (HEMOGRAM ONLY) Routine 06/28/2019 5:26 AM CDT TSH Routine 06/27/2019 4:36 AM CDT PHOSPHORUS Routine 06/27/2019 4:36 AM CDT APTT Routine 06/27/2019 4:36 AM CDT PROTHROMBIN TIME/INR Routine 06/27/2019 4:36 AM CDT MAGNESIUM Routine 06/27/2019 4:36 AM CDT BASIC METABOLIC PANEL (7) Routine 06/27/2019 4:36 AM CDT CBC (HEMOGRAM ONLY) Routine 06/27/2019 4:36 AM CDT POCT-GLUCOSE METER Routine 06/26/2019 8:43 AM CDT PHOSPHORUS Routine 06/26/2019 5:40 AM CDT APTT Routine 06/26/2019 5:40 AM CDT PROTHROMBIN TIME/INR Routine 06/26/2019 5:40 AM CDT MAGNESIUM Routine 06/26/2019 5:40 AM CDT BASIC METABOLIC PANEL (7) Routine 06/26/2019 5:40 AM CDT CBC (HEMOGRAM ONLY) Routine 06/26/2019 5:40 AM CDT POCT-GLUCOSE METER Routine 06/25/2019 9:00 PM CDT POCT-GLUCOSE METER Routine 06/25/2019 4:43 PM CDT POCT-GLUCOSE METER Routine 06/25/2019 7:58 AM CDT PHOSPHORUS Routine 06/25/2019 5:27 AM CDT APTT Routine 06/25/2019 5:27 AM CDT PROTHROMBIN TIME/INR Routine 06/25/2019 5:27 AM CDT MAGNESIUM Routine 06/25/2019 5:27 AM CDT BASIC METABOLIC PANEL (7) Routine 06/25/2019 5:27 AM CDT CBC (HEMOGRAM ONLY) Routine 06/25/2019 5:27 AM CDT POCT-GLUCOSE METER Routine 06/24/2019 8:56 PM CDT POCT-GLUCOSE METER Routine 06/24/2019 4:46 PM CDT POCT-GLUCOSE METER Routine 06/24/2019 12:23 PM CDT POCT-GLUCOSE METER Routine 06/24/2019 7:46 AM CDT PHOSPHORUS Routine 06/24/2019 4:57 AM CDT APTT Routine 06/24/2019 4:57 AM CDT PROTHROMBIN TIME/INR Routine 06/24/2019 4:57 AM CDT MAGNESIUM Routine 06/24/2019 4:57 AM CDT BASIC METABOLIC PANEL (7) Routine 06/24/2019 4:57 AM CDT CBC (HEMOGRAM ONLY) Routine 06/24/2019 4:57 AM CDT POCT-GLUCOSE METER Routine 06/23/2019 8:58 PM CDT TRANSFUSION SERVICE 06/23/2019 REPORT - SCAN 5:50 PM CDT POCT-GLUCOSE METER Routine 06/23/2019 5:14 PM CDT POTASSIUM Routine 06/23/2019 2:29 PM CDT XR KNEE LEFT 1 OR 2 VIEWS Routine 06/23/2019 10:53 AM CDT POCT-GLUCOSE METER Routine 06/23/2019 9:15 AM CDT PHOSPHORUS STAT 06/23/2019 Add-on 5:01 AM CDT APTT Routine 06/23/2019 5:01 AM CDT PROTHROMBIN TIME/INR Routine 06/23/2019 5:01 AM CDT MAGNESIUM Routine 06/23/2019 5:01 AM CDT BASIC METABOLIC PANEL (7) Routine 06/23/2019 5:01 AM CDT CBC (HEMOGRAM ONLY) Routine 06/23/2019 5:01 AM CDT PREPARE LEUKO-REDUCED RBC Routine 06/22/2019 11:54 PM CDT POTASSIUM Routine 06/22/2019 9:29 PM CDT POCT-GLUCOSE METER Routine 06/22/2019 9:05 PM CDT TRANSFUSION SERVICE 06/22/2019 REPORT - SCAN 5:50 PM CDT BASIC METABOLIC PANEL (7) Timed 06/22/2019 4:43 PM CDT POCT-GLUCOSE METER Routine 06/22/2019 11:45 AM CDT POCT-GLUCOSE METER Routine 06/22/2019 7:40 AM CDT APTT Routine 06/22/2019 7:04 AM CDT PROTHROMBIN TIME/INR Routine 06/22/2019 7:04 AM CDT MAGNESIUM Routine 06/22/2019 7:04 AM CDT CBC (HEMOGRAM ONLY) Routine 06/22/2019 7:04 AM CDT BASIC METABOLIC PANEL (7) Timed 06/22/2019 7:04 AM CDT POCT-GLUCOSE METER Routine 06/21/2019 9:05 PM CDT MAGNESIUM Add-On 06/21/2019 8:38 PM CDT BASIC METABOLIC PANEL (7) Timed 06/21/2019 8:38 PM CDT TRANSFUSE LEUKO-REDUCED Routine 06/21/2019 RED BLOOD CELLS 5:00 PM CDT POCT-GLUCOSE METER Routine 06/21/2019 4:01 PM CDT BASIC METABOLIC PANEL (7) STAT 06/21/2019 1:53 PM CDT POCT-GLUCOSE METER Routine 06/21/2019 12:08 PM CDT POCT-GLUCOSE METER Routine 06/21/2019 7:47 AM CDT APTT Routine 06/21/2019 5:42 AM CDT PROTHROMBIN TIME/INR Routine 06/21/2019 5:42 AM CDT MAGNESIUM Routine 06/21/2019 5:42 AM CDT BASIC METABOLIC PANEL (7) Routine 06/21/2019 5:42 AM CDT CBC (HEMOGRAM ONLY) Routine 06/21/2019 5:42 AM CDT POCT-GLUCOSE METER Routine 06/20/2019 9:18 PM CDT PHOSPHORUS Routine 06/20/2019 8:52 PM CDT MAGNESIUM Routine 06/20/2019 8:52 PM CDT BASIC METABOLIC PANEL (7) Routine 06/20/2019 8:52 PM CDT POCT-GLUCOSE METER Routine 06/20/2019 3:33 PM CDT CBC W/PLT COUNT & AUTO Routine 06/20/2019 DIFFERENTIAL 2:12 PM CDT CBC W/PLT COUNT & AUTO Routine 06/20/2019 DIFFERENTIAL 2:12 PM CDT POCT-GLUCOSE METER Routine 06/20/2019 11:44 AM CDT XR ABDOMEN / KUB 1 VIEW Routine 06/20/2019 11:27 AM CDT BASIC METABOLIC PANEL (7) STAT 06/20/2019 8:07 AM CDT POCT-GLUCOSE METER Routine 06/20/2019 7:54 AM CDT CBC (HEMOGRAM ONLY) Routine 06/20/2019 1:15 AM CDT APTT Routine 06/20/2019 1:14 AM CDT PROTHROMBIN TIME/INR Routine 06/20/2019 1:14 AM CDT BASIC METABOLIC PANEL (7) Routine 06/20/2019 1:14 AM CDT MAGNESIUM Routine 06/20/2019 1:14 AM CDT ECHOCARDIOGRAM REPORT - 06/19/2019 SCAN 9:10 PM CDT TRANSFUSION SERVICE 06/19/2019 REPORT - SCAN 5:51 PM CDT BASIC METABOLIC PANEL (7) STAT 06/19/2019 3:24 PM CDT AMMONIA STAT 06/19/2019 9:11 AM CDT TSH Routine 06/19/2019 4:04 AM CDT HEMOGLOBIN A1C Routine 06/19/2019 4:04 AM CDT APTT Routine 06/19/2019 4:04 AM CDT PROTHROMBIN TIME/INR Routine 06/19/2019 4:04 AM CDT PHOSPHORUS Routine 06/19/2019 4:04 AM CDT MAGNESIUM Routine 06/19/2019 4:04 AM CDT BASIC METABOLIC PANEL (7) Routine 06/19/2019 4:04 AM CDT CBC (HEMOGRAM ONLY) Routine 06/19/2019 4:04 AM CDT MAGNESIUM STAT 06/19/2019 Add-on 12:22 AM CDT BASIC METABOLIC PANEL (7) STAT 06/19/2019 Add-on 12:22 AM CDT POTASSIUM Routine 06/19/2019 12:22 AM CDT MAGNESIUM Routine 06/18/2019 8:20 PM CDT POTASSIUM Routine 06/18/2019 8:20 PM CDT ECG 12-LEAD Routine 06/18/2019 5:31 PM CDT Procedure Note - Interface, External Ris In - 06/18/2019 5:38 PM CDT Ventricula r Rate 88 BPM Atrial Rate 88 BPM P-R Interval 148 ms QRS Duration 100 ms Q-T Interval 398 ms QTC Calculatio n(Bazett) 481 ms P [place] 56 degrees R [place] -3 degrees T [place] 87 degrees Normal sinus rhythm Prolonged QT Abnormal ECG ECG 12-LEAD Routine 06/18/2019 5:31 PM CDT ECG 12-LEAD Routine 06/18/2019 5:30 PM CDT Procedure Note - Interface, External Ris In - 06/18/2019 5:38 PM CDT Ventricula r Rate 95 BPM Atrial Rate 95 BPM P-R Interval 162 ms QRS Duration 96 ms Q-T Interval 378 ms QTC Calculatio n(Bazett) 475 ms P [place] 61 degrees R [place] 10 degrees T [place] 90 degrees Sinus rhythm with occasional Premature ventricula r complexes Otherwise normal ECG ECG 12-LEAD Routine 06/18/2019 5:29 PM CDT ECG 12-LEAD Routine 06/18/2019 5:29 PM CDT Procedure Note - Interface, External Ris In - 06/18/2019 5:38 PM CDT Ventricula r Rate 87 BPM Atrial Rate 87 BPM P-R Interval 154 ms QRS Duration 98 ms Q-T Interval 398 ms QTC Calculatio n(Bazett) 478 ms P [place] 47 degrees R [place] -5 degrees T [place] 79 degrees Sinus rhythm with occasional Premature ventricula r complexes Otherwise normal ECG RAPID INFLUENZA A&B Routine 06/18/2019 SCREEN 4:57 PM CDT 2D ECHO W/ DOPPLER STAT 06/18/2019 (CW/PW/COLOR) 4:53 PM CDT BLOOD CULTURE Routine 06/18/2019 4:46 PM CDT BLOOD CULTURE Routine 06/18/2019 4:40 PM CDT ABORH, MANUAL STAT 06/18/2019 4:38 PM CDT AMMONIA Routine 06/18/2019 4:38 PM CDT XR ABDOMEN / KUB 1 VIEW Routine 06/18/2019 4:08 PM CDT XR CHEST 1 VIEW STAT 06/18/2019 PORTABLE/BEDSIDE 3:56 PM CDT BLOOD GAS, ARTERIAL Routine 06/18/2019 3:37 PM CDT CBC W/PLT COUNT & AUTO Routine 06/18/2019 DIFFERENTIAL 3:36 PM CDT TYPE AND SCREEN, Routine 06/18/2019 AUTOMATED 3:36 PM CDT PHOSPHORUS Routine 06/18/2019 3:36 PM CDT MAGNESIUM Routine 06/18/2019 3:36 PM CDT PROTHROMBIN TIME/INR Routine 06/18/2019 3:36 PM CDT PT/APTT Routine 06/18/2019 3:36 PM CDT LACTIC ACID, VENOUS Routine 06/18/2019 3:36 PM CDT HEPATIC FUNCTION PANEL Routine 06/18/2019 3:36 PM CDT COMPREHENSIVE METABOLIC Routine 06/18/2019 PANEL 3:36 PM CDT CBC W/PLT COUNT & AUTO Routine 06/18/2019 DIFFERENTIAL 3:36 PM CDT after 12/26/2018 Results * RHYTHM STRIP - SCAN (07/14/2019 2:50 PM CDT) Only the most recent of 2 results within the time period is included. Narrative Performed At This result has an attachment that is n ot available. * XR abdomen / KUB 1 view (07/11/2019 7:04 AM CDT) Only the most recent of 14 results within the time period is included. Specimen Narrative Performed At FINAL REPORT [facility] Abdomen , one view History: Ileus Comparison: 07/10/2019 Findings: Persistent dilated loops of predominant ly large bowel throughout the abdomen and pelvis, without significant change from previous study. No definite free air, although assessme nt is limited by supine patient positioning.No definite bow el pneumatosis or portal venous gas.No calcifications along the exp ected course of the urinary tract. Impression: No significant interval change. Signed: Parrish Meadows MD Report Verified Date/Time: 0 07:48:35 Reading Location: [facility] Reading Room - [place] [id number] Procedure Note Interface, External Ris In - 07/11/2019 7:50 AM CDT FINAL REPORT Abdomen , one view History: Ileus Comparison: 07/10/2019 Findings: Persistent dilated loops of predominantly large bowel throughout the abdomen and pelvis, without significant change from previous study. No definite free air, although assessment is limited by supine patient positioning. No definite bowel pneumatosis or portal venous gas. No calcifications along the expected course of the urinary tract. Impression: No significant interval change. Signed: Parrish Meadows MD Report Verified Date/Time: 07/11/2019 07:48:35 Reading Location: [facility] Diagnostic Imaging Reading Room - [place] [address] Performing Organization Address [facility] one Number GE RIS * aPTT (07/11/2019 4:42 AM CDT) Only the most recent of 23 results within the time period is included. PTT 41.1 (H) 22.5 - 36.0 seconds [facility] Specimen Blood Performing Organization Address [facility] one Number [place] [address] MEDICAL CENTER * Prothrombin time/INR (07/11/2019 4:42 AM CDT) Only the most recent of 24 results within the time period is included. Protime 17.6 (H) 11.9 - 14.2 seconds [facility] INR 1.5 <=5.9 [facility] Specimen Blood Narrative Performed At Effective 08/24/2018: PT Reference Range Change [facility] New: 11.9-14.2Previous: 11.7-14.7 [facility] MEDICAL CE NTER RECOMMENDED COUMADIN/WARFARIN INR THERA PY RANGES STANDARD DOSE: 2.0-3.0Includes: PRO PHYLAXIS for venous thrombosis, systemic embolization; TREATMENT for venous thro mbosis and/or pulmonary embolus. HIGH RISK: Target INR is 2.5-3.5 for pa tients wiht mechanical heart valves. Performing Organization Address [facility]/Zipcode Ph one [facility] [address] [place], [place] [address] MEDICAL CENTER * CBC (Hemogram only) (07/11/2019 4:42 AM CDT) Only the most recent of 23 results within the time period is included. WBC 5.9 3.5 - 10.5 K/L [facility] RBC 2.95 (L) 4.63 - 6.08 M/L [facility] Hemoglobin 8.7 (L) 13.7 - 17.5 GM/DL [facility] Hematocrit 26.6 (L) 40.1 - 51.0 % [facility] MCV 90.2 79.0 - 92.2 fL [facility] MCH 29.5 25.7 - 32.2 pg [facility] MCHC 32.7 32.3 - 36.5 GM/DL [facility] RDW 15.2 (H) 11.6 - 14.4 % [facility] Platelets 234 150 - 450 K/CU MM [facility] MPV 9.2 (L) 9.4 - 12.4 fL [facility] nRBC 0 0 - 0 /100 WBC [facility] Specimen Blood Performing Organization Address [facility] [place] one Number [place] [phone] [place] [address] MED[facility]ENTER * Phosphorus (07/11/2019 4:42 AM CDT) Only the most recent of 22 results within the time period is included. Phosphorus 4.2 2.3 - 4.7 mg/dL [facility] Specimen Blood Narrative Performed At [employer] Sales Associate ID - CELESTINA W [facility] Performing Organization Address City/[facility] one Number [facility] [address] [place], [place] [address] [facility] * Magnesium (07/11/2019 4:42 AM CDT) Only the most recent of 31 results within the time period is included. Magnesium 1.6 1.6 - 2.6 mg/dL [facility] Specimen Blood Narrative Performed At [employer] ID - CELESTINA [place] [facility] Performing Organization Address [facility] [place] [facility] [address] [place], [place] [address] [facility] * Basic Metabolic Panel (07/11/2019 4:42 AM CDT) Only the most recent of 30 results within the time period is included. Sodium 135 (L) 136 - 145 meq/L [facility] Potassium 3.8 3.5 - 5.1 meq/L [facility] Chloride 104 98 - 107 meq/L [facility] CO2 26 22 - 29 meq/L [facility] BUN 6 (L) 7 - 21 mg/dL [facility] Creatinine 1.01 0.57 - 1.25 mg/dL [facility] Glucose 87 70 - 105 mg/dL [facility] Calcium 8.4 8.4 - 10.2 mg/dL [facility] EGFR 75Comment: ESTIMATED GFR IS mL/min/1.[address] [facility] NOT ACCURATE CREATININE [facility] CLEARANCE IN PREDICTING GLOMERULAR FILTRATION RATE. ESTIMATED GFR IS NOT APPLICABLE FOR DIALYSIS PATIENTS. Specimen Blood Narrative Performed At [employer] ID - CELESTINA [place] [facility] Performing Organization Address [facility] [place] Ph one [place] [facility] [address] [place], [place] [address] [facility] * TSH (07/10/2019 6:38 PM CDT) Only the most recent of 4 results within the time period is included. TSH 1.612 0.350 - 4.940 uIU/mL [facility] Specimen Blood Narrative Performed At Fleet Sales Associate ID - BS [facility] Performing Organization Address [facility] [place] Ph one Number [address] [facility] [place] * Potassium (07/07/2019 2:44 PM CDT) Only the most recent of 11 results within the time period is included. Potassium 4.3 3.5 - 5.1 meq/L [facility] Specimen Blood Narrative Performed At Fleet Sales Associate ID - ROSIANG [facility] Performing Organization Address [facility] one Number [address] [facility] * CT abdomen/pelvis without iv contrast (06/29/2019 1:07 AM CDT) Specimen Narrative Performed At FINAL REPORT GE RIS CLINICAL HISTORY: Ileus FINDINGS: Multiple axial images of the abdomen an d pelvis were performed without intravenous contrast. Oral cont rast was given. This exam was performed according to [facility] departmental dose-optimization program, which includ es automated exposure control, adjustment of the mA and/or kV accordin g to patient size and/or use of the iterative reconstruction techniq ue. Comparison:None. Lower chest: Trace bilateral effusions and adjacent atelectasis. No pneumothorax. Visualized cardiac contou rs normal. Previous sternotomy. Liver: No significant findings. Gallbladder and biliary tree: No signif icant findings. Spleen: No significant findings. Adrenal Glands: No significant findings . Kidneys and ureters: No significant fin dings. Stomach and Duodenum: Small hiatal norberto ia Pancreas: No significant findings. Bowel: There is diffuse distention of l arge and small bowel loops without focal transition point. Enteric contrast passes to the hepatic flexure. There is fluid density stool to the level of the rectum and there is subtle loss of muco lamonte folds in the left colon. Appendix: Normal. Bladder: No significant findings. Major vascular structures: Atherosclero tic calcifications. 3.8 cm infrarenal, suprailiac abdominal aortic aneurysm. Reproductive organs: No significant fin dings. Other: Small volume ascites. Diffuse rodney bcutaneous edema. Skeleton: No acute bony abnormality. IMPRESSION: Nonspecific findings which could reflec t ileus, colitis or enterocolitis. Infectious, inflammatory and ischemic causes can be considered. Trace bilateral pleural effusions and a djacent atelectasis versus pneumonitis. Small volume ascites and diffuse subcut aneous edema. Small hiatal hernia. An abdominal aortic aneurysm measures 3 .8 cm in diameter.A follow-up examination is recommended ev viridiana 2 years. Signed: Shahzad Aguilar MD Report Verified Date/Time: 0 01:31:48 Procedure Note Interface, External Ris In - 06/29/2019 1:34 AM CDT FINAL REPORT CLINICAL HISTORY: Ileus FINDINGS: Multiple axial images of the abdomen and pelvis were performed without intravenous contrast. Oral contrast was given. This exam was performed according to our departmental dose-optimization program, which includes automated exposure control, adjustment of the mA and/or kV according to patient size and/or use of the iterative reconstruction technique. Comparison:None. Lower chest: Trace bilateral effusions and adjacent atelectasis. No pneumothorax. Visualized cardiac contours normal. Previous sternotomy. Liver: No significant findings. Gallbladder and biliary tree: No significant findings. Spleen: No significant findings. Adrenal Glands: No significant findings. Kidneys and ureters: No significant findings. Stomach and Duodenum: Small hiatal hernia Pancreas: No significant findings. Bowel: There is diffuse distention of large and small bowel loops without focal transition point. Enteric contrast passes to the hepatic flexure. There is fluid density stool to the level of the rectum and there is subtle loss of mucosal folds in the left colon. Appendix: Normal. Bladder: No significant findings. Major vascular structures: Atherosclerotic calcifications. 3.8 cm infrarenal, suprailiac abdominal aortic aneurysm. Reproductive organs: No significant findings. Other: Small volume ascites. Diffuse subcutaneous edema. Skeleton: No acute bony abnormality. IMPRESSION: Nonspecific findings which could reflect ileus, colitis or enterocolitis. Infectious, inflammatory and ischemic causes can be considered. Trace bilateral pleural effusions and adjacent atelectasis versus pneumonitis. Small volume ascites and diffuse subcutaneous edema. Small hiatal hernia. An abdominal aortic aneurysm measures 3.8 cm in diameter. A follow-up examination is recommended every 2 years. Signed: Shahzad Aguilar MD Report Verified Date/Time: 06/29/2019 01:31:48 Performing Organization Address City/[facility] [place] Ph one Number GE RIS * POC-Glucose meter (06/26/2019 8:43 AM CDT) Only the most recent of 22 results within the time period is included. POC-Glucose Meter 71Comment: : TESTED AT [facility] 70 - 110 mg/dL [address] [address]: Fleet Sales Associate/Dental Technician Metal ID = [id number] for RADAMES BOSWELL Specimen Blood Performing Organization Address [facility] [place] Ph one Number [address] [facility] * TRANSFUSION SERVICE REPORT - SCAN (06/23/2019 5:50 PM CDT) Only the most recent of 3 results within the time period is included. Narrative Performed At This result has an attachment that is n ot available. * XR knee 1 or 2 views left (06/23/2019 10:53 AM CDT) Specimen Narrative Performed At FINAL REPORT GE RIS TECHNIQUE: Frontal and lateral radiogra phs of the left knee dated 06/23/2019 HISTORY: Pain COMPARISON: None. FINDINGS: There is a total left knee arthroplasty with no evidence of hardware related complications. No fracture or d islocation. Bones are osteopenic. No suprapatellar joint effu rosalind. No bone erosion or soft tissue nodule seen. No radiodense forei gn body or subcutaneous emphysema. IMPRESSION: No fracture or dislocation. Total left knee arthroplasty. Signed: Adalberto Dallas MD Report Verified Date/Time: 0 11:25:52 Reading Location: [address] gy Reading Room Procedure Note Interface, External Ris In - 06/23/2019 11:28 AM CDT FINAL REPORT TECHNIQUE: Frontal and lateral radiographs of the left knee dated 06/23/2019 HISTORY: Pain COMPARISON: None. FINDINGS: There is a total left knee arthroplasty with no evidence of hardware related complications. No fracture or dislocation. Bones are osteopenic. No suprapatellar joint effusion. No bone erosion or soft tissue nodule seen. No radiodense foreign body or subcutaneous emphysema. IMPRESSION: No fracture or dislocation. Total left knee arthroplasty. Signed: Adalberto Dallas MD Report Verified Date/Time: 06/23/2019 11:25:52 Reading Location: [address] Radiology Reading Room Performing Organization Address [facility] [place] Ph one Number GE RIS * Prepare Leuko-Red RBC (06/22/2019 11:54 PM CDT) CROSSMATCH COMPATIBLE SAFETRACE TX Unit ABO O Pos SAFETRACE TX UNIT NUMBER [id number] SAFETRACE TX Status TX_TIMEINCHART SAFETRACE TX Blood Bank Product RED BLOOD CELLS SAFETRACE TX PRODUCT CODE [id number] SAFETRACE [place] Specimen Other Performing Organization Address [facility] one Number SAFETRACE [place] * Transfuse Leuko-Red RBC (06/21/2019 5:00 PM CDT) Only the most recent of 2 results within the time period is included. * CBC with platelet count + automated diff (06/20/2019 2:12 PM CDT) Only the most recent of 2 results within the time period is included. WBC 7.5 3.5 - 10.5 K/L [facility] RBC 2.55 (L) 4.63 - 6.08 M/L [facility] Hemoglobin 7.8 (L) 13.7 - 17.5 GM/DL [facility] Hematocrit 23.5 (L) 40.1 - 51.0 % [facility] MCV 92.2 79.0 - 92.2 fL [facility] MCH 30.6 25.7 - 32.2 pg [facility] MCHC 33.2 32.3 - 36.5 GM/DL [facility] RDW 16.0 (H) 11.6 - 14.4 % [facility] Platelets 269 150 - 450 K/CU MM [facility] MPV 9.7 9.4 - 12.4 fL [facility] nRBC 0 0 - 0 /100 WBC [facility] % Neutros 72 % [facility] % Lymphs 16 % [facility] % Monos 9 % [facility] % Eos 3 % [facility] % Baso 1 % [facility] # Neutros 5.39 (H) 1.78 - 5.38 K/L [facility] # Lymphs 1.17 (L) 1.32 - 3.57 K/L [facility] # Monos 0.64 0.30 - 0.82 K/L [facility] # Eos 0.23 0.04 - 0.54 K/L [facility] # Baso 0.05 0.01 - 0.08 K/L [facility] Immature 1 0 - 1 % [facility] Granulocytes-Relative [facility] Specimen Blood Performing Organization Address City/State/Zipcode Ph one Number [facility] [address] [place], [place] [address] [facility] * ECHOCARDIOGRAM REPORT - SCAN (06/19/2019 9:10 PM CDT) Narrative Performed At This result has an attachment that is n ot available. * Ammonia (06/19/2019 9:11 AM CDT) Only the most recent of 2 results within the time period is included. Ammonia 34 18 - 72 mol/L [facility] Specimen Blood Narrative Performed At Fleet Sales Associate CARLO MALONE [facility] Performing Organization Address City/[facility] [place] [facility] [place] Ph one Number [address] [facility] * Hemoglobin A1c (06/19/2019 4:04 AM CDT) Hemoglobin A1C 5.8 4.3 - 6.1 % [facility] Specimen Blood Performing Organization Address [facility] one Number [address] [facility] * ECG 12 lead (06/18/2019 5:31 PM CDT) Only the most recent of 2 results within the time period is included. Specimen Narrative Performed At Ventricular Rate 88 BPM GE MUSE Atrial Rate 88 BPM P-R Interval 148 ms QRS Duration 100 ms Q-T Interval 398 ms QTC Calculation(Bazett) 481 ms P [place] 56 degrees R [place] -3 degrees T [place] 87 degrees Normal sinus rhythm Prolonged QT Abnormal ECG 18 JUN 2019 17:29 PVCs no longer seen Confirmed by MD MATT, ZULEMA ([id number] ) on 06/19/2019 1:42:23 PM Procedure Note Interface, External Ris In - 06/19/2019 1:42 PM CDT Ventricular Rate 88 BPM Atrial Rate 88 BPM P-R Interval 148 ms QRS Duration 100 ms Q-T Interval 398 ms QTC Calculation(Bazett) 481 ms P [place] 56 degrees R [place] -3 degrees T [place] 87 degrees Normal sinus rhythm Prolonged QT Abnormal ECG 18 JUN 2019 17:29 PVCs no longer seen Confirmed by MD GUTIERREZ YOCHAI ([id number]) on 06/19/2019 1:42:23 PM Performing Organization Address [facility] one Number GE MUSE * Rapid Influenza A&B Screen (06/18/2019 4:57 PM CDT) Rapid Influenza A Antigen Negative Negative, Inconclusi ve [facility] Rapid influenza B Antigen Negative Negative, Inconclusi ve [facility] Specimen Nasal Performing Organization Address City/State/Zipcode Ph one [place]on [facility] [address] [place], [place] [address] [facility]ENTER * 2D Echo W/Doppler(CW/PW/Color) (06/18/2019 4:53 PM CDT) Ejection Fraction [facility] ECHO HEARTLAB [facility] Specimen Narrative Performed At Transthoracic Echocardiography Report (TTE) [facility] ECH O HEARTLAB [facility]ographics [facility] Patient NameSLOGAN CALI of Study06/18/2019 E Male Visit [id number] Race Unknown Room [id number] Number Date of 1960 Referring Physician Age 58 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 Clinical History HGB 8.7 HCT 26.4 % Contrast Medium: Definity. Amount - 2 m l Height: 77 inches Weight: 126.55 kg (27 9 lbs) BSA: 2.58 m^2 BMI: 33.08 kg/m^2 HR: 95 bpm BP: 83/59 mmHg Summary The left ventricle is chamber size (by PSLAX dimension) is normal (male - LVIDd 4.2-5.8cm) . All of the LV segmen ts contract normally . Estimated LVEF by qualitative assessment is betsy l (>60%) . Aortic root size (Sinus of Valsalva fermín meter) is moderately dilated. 4.4 cm Estimated peak systolic PA pressure is 30-35 mmHg + RA pressure. Signature Findings Left Ventricle The left ventricle is chamber size (by PSLAX dimension) is normal (male - LVIDd 4.2-5.8cm) . Normal LV wall thickness. All of the LV segments contract normally . Estimated LVEF by qualitative assessment is normal (>60%) . Left AtriumLA s ize is normal (16-34 ml/m2) . Right VentricleThe righ t ventricular chamber size and systolic function are within normal limits. Right Atrium RA siz e is normal. Aortic Valve The ao rtic valve is not well visualized. AoV cusps appear mildly thickened. Mitral Valve Mild M V leaflet thickening. Tricuspid ValveTV struc ture is normal. A trace of tricuspid regurgitation. Estimated peak systolic PA pressure is 30-35 mmHg + RA pressure. Pulmonic Valve PV is no t well visualized. Aorta Aortic root size (Sinus of Valsalva diameter) is moderately dilated. 4.4 cm PericardiumNo p ericardial effusion is visualized. IVC/SVC/PA/PV/PleuralThe inferior v sultana cava is not well visualized. Chambers/Structures Left Atrium LA Dimension: 4.06 cm LA Area: 17.71 cm^2 LA Volume: 47.78 ml LA Vol. Index: 19 ml/m^2 Left Ventricle LVIDd: 5.46 cm LVIDs: 3.57 cm LV Septum Diastolic: 1.23 cm LV PW Diastolic: 1.33 cm LV FS: 34.6 % LVOT Diameter: 2.39 cm Right Ventricle RVOT VTI: 13.58 cm Aorta Ao Root S of Sonya.: 4.4 cm Doppler/Quantitative Measurements Aortic Valve Peak Velocity: 0.77 m/s Mean Velocity: 0.52 m/s Peak Gradient: 2.35 mmHg Mean Gradient: 1.27 mmHg AV Area (continuity): 7.61 cm^2 AV VTI: 11.43 cm AV DVI: 1.7 LVOT Peak Velocity: 1.01 m/s Peak Gradient: 4.06 mmHg Mean Velocity: 0.66 m/s Mean Gradient: 2.06 mmHg LVOT Diameter: 2.39 cm LVOT VTI: 19.4 cm LVOT Area: 4.49 cm^2 LVOT SV:86.99 ml LVOT CO: 8.26 l/min LVOT CI: 3.2 l/min/m^2 Tricuspid Valve TR Velocity: 2.66 m/s TR Gradient: 28.36 mmHg Procedure Note Interface, External Ris In - 06/19/2019 9:17 AM CDT Transthoracic Echocardiography Report (TTE) Demographics Patient Name [place] HICKS Date of Study 06/18/2019 E Gender Male Visit Number [id number] Race Unknown Room Number [id number] Number Date of 1960 Referring Physician Age 58 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 Clinical History HGB 8.7 HCT 26.4 % Contrast Medium: Definity. Amount - 2 ml Height: 77 inches Weight: 126.55 kg (279 lbs) BSA: 2.58 m^2 BMI: 33.08 kg/m^2 HR: 95 bpm BP: 83/59 mmHg Summary The left ventricle is chamber size (by PSLAX dimension) is normal (male - LVIDd 4.2-5.8cm) . All of the LV segments contract normally . Estimated LVEF by qualitative assessment is normal (>60%) . Aortic root size (Sinus of Valsalva diameter) is moderately dilated. 4.4 cm Estimated peak systolic PA pressure is 30-35 mmHg + RA pressure. Signature Findings Left Ventricle The left ventricle is chamber size (by PSLAX dimension) is normal (male - LVIDd 4.2-5.8cm) . Normal LV wall thickness. All of the LV segments contract normally . Estimated LVEF by qualitative assessment is normal (>60%) . Left Atrium LA size is normal (16-34 ml/m2) . Right Ventricle The right ventricular chamber size and systolic function are within normal limits. Right Atrium RA size is normal. Aortic Valve The aortic valve is not well visualized. AoV cusps appear mildly thickened. Mitral Valve Mild MV leaflet thickening. Tricuspid Valve TV structure is normal. A trace of tricuspid regurgitation. Estimated peak systolic PA pressure is 30-35 mmHg + RA pressure. Pulmonic Valve PV is not well visualized. Aorta Aortic root size (Sinus of Valsalva diameter) is moderately dilated. 4.4 cm Pericardium No pericardial effusion is visualized. IVC/SVC/PA/PV/Pleural The inferior vena cava is not well visualized. Chambers/Structures Left Atrium LA Dimension: 4.06 cm LA Area: 17.71 cm^2 LA Volume: 47.78 ml LA Vol. Index: 19 ml/m^2 Left Ventricle LVIDd: 5.46 cm LVIDs: 3.57 cm LV Septum Diastolic: 1.23 cm LV PW Diastolic: 1.33 cm LV FS: 34.6 % LVOT Diameter: 2.39 cm Right Ventricle RVOT VTI: 13.58 cm Aorta Ao Root S of Sonya.: 4.4 cm Doppler/Quantitative Measurements Aortic Valve Peak Velocity: 0.77 m/s Mean Velocity: 0.52 m/s Peak Gradient: 2.35 mmHg Mean Gradient: 1.27 mmHg AV Area (continuity): 7.61 cm^2 AV VTI: 11.43 cm AV DVI: 1.7 LVOT Peak Velocity: 1.01 m/s Peak Gradient: 4.06 mmHg Mean Velocity: 0.66 m/s Mean Gradient: 2.06 mmHg LVOT Diameter: 2.39 cm LVOT VTI: 19.4 cm LVOT Area: 4.49 cm^2 LVOT SV:86.99 ml LVOT CO: 8.26 l/min LVOT CI: 3.2 l/min/m^2 Tricuspid Valve TR Velocity: 2.66 m/s TR Gradient: 28.36 mmHg Performing Organization Address [facility] [place] Ph one Number [facility] ECHO HEARTLAB MKCKESSON CPACS * Blood Culture - Routine (Right Venipuncture) (06/18/2019 4:46 PM CDT) Only the most recent of 2 results within the time period is included. Result No growth in 5 days [facility] Specimen Blood Performing Organization Address [facility] [place] Ph one [address] [facility] * ABORH, manual (06/18/2019 4:38 PM CDT) Rh Factor POS [facility] ABO Grouping O [facility] Specimen Blood Performing Organization Address [facility] one [address] [address] [facility] * XR chest 1 view portable / bedside (06/18/2019 3:56 PM CDT) Specimen Narrative Performed At FINAL REPORT [place] TECHNIQUE: Frontal view of the chest. INDICATION: CVL placement. COMPARISON: None. FINDINGS: LINES/TUBES: A right subclavian central venous catheter has its tip in the lower right atrium. A NG tube mcmanus s its tip over the gastric fundus. LUNGS: Pulmonary venous congestion. Mil d streaky opacities in the left base are most consistent with atel ectasis. No consolidation or pulmonary edema. PLEURA: No pneumothorax or significant pleural effusion. HEART AND MEDIASTINUM: The cardiomedias tinal silhouette is within normal limits. SOFT TISSUES AND BONES: Prominent loops of bowel in the upper abdomen.. Prior median sternotomy. Ther e is likely been a prior resection of the left distal clavicle. IMPRESSION: A right subclavian central venous arnel ter has its tip in the low right atrium. No pneumothorax. Nonspecific, prominent loops of bowel i n the upper abdomen Signed: Sarath Nagel MD Report Verified Date/Time: 0 16:16:50 Reading Location: [facility] C013Y CT Body Reading Room Procedure Note Interface, External Ris In - 06/18/2019 4:19 PM CDT FINAL REPORT TECHNIQUE: Frontal view of the chest. INDICATION: CVL placement. COMPARISON: None. FINDINGS: LINES/TUBES: A right subclavian central venous catheter has its tip in the lower right atrium. A NG tube has its tip over the gastric fundus. LUNGS: Pulmonary venous congestion. Mild streaky opacities in the left base are most consistent with atelectasis. No consolidation or pulmonary edema. PLEURA: No pneumothorax or significant pleural effusion. HEART AND MEDIASTINUM: The cardiomediastinal silhouette is within normal limits. SOFT TISSUES AND BONES: Prominent loops of bowel in the upper abdomen.. Prior median sternotomy. There is likely been a prior resection of the left distal clavicle. IMPRESSION: A right subclavian central venous catheter has its tip in the low right atrium. No pneumothorax. Nonspecific, prominent loops of bowel in the upper abdomen Signed: Sarath Nagel MD Report Verified Date/Time: 06/18/2019 16:16:50 Reading Location: [facility] B1 C013Y CT Body Reading Room Performing Organization Address City/State/Zipcode Ph one Number RIS * Blood gas, arterial (06/18/2019 3:37 PM CDT) pH, Arterial 7.45 7.35 - 7.45 [facility] pCO2, Arterial 33 (L) 35 - 45 mmHg [facility] pO2, Arterial 83 80 - 90 mmHg [facility] O2 Sat, Arterial 96.7 96.0 - 97.0 % [facility] HCO3, Arterial 22 21 - 29 mmol/L [facility] Base Excess, Arterial -1.6 -2.0 - 3.0 mmol/L [facility] Patient Temperature 37.0 C [facility] FIO2 36.0 % [facility] Specimen Blood, Arterial Performing Organization Address [facility] one Number [place] [address] [facility] * Type and screen, automated (06/18/2019 3:36 PM CDT) ABO/RH AUTOMATED (BEAKER) O POSITIVE [facility] Ab Scrn NEGATIVE [facility] Specimen Blood Performing Organization Address [facility] [place] Ph one Number [address] [id number] [facility] * PT/aPTT (06/18/2019 3:36 PM CDT) Protime 17.6 (H) 11.9 - 14.2 seconds [facility] INR 1.5 <=5.9 [facility] PTT 35.2 22.5 - 36.0 seconds [facility] Specimen Blood Narrative Performed At Effective 08/24/2018: PT Reference Range Change [facility] New: 11.9-14.2Previous: 11.7-14.7 [facility] MEDICAL CE NTER RECOMMENDED COUMADIN/WARFARIN INR THERA PY RANGES STANDARD DOSE: 2.0-3.0Includes: PRO PHYLAXIS for venous thrombosis, systemic embolization; TREATMENT for venous thro mbosis and/or pulmonary embolus. HIGH RISK: Target INR is 2.5-3.5 for pa tients wiht mechanical heart valves. Performing Organization Address [facility] one Number [address] [facility] * Lactic acid, venous (06/18/2019 3:36 PM CDT) Lactate, Venous 1.02Comment: Specimen 0.50 - 2.20 mmol/L [facility] moderately hemolyzed [facility] Specimen Blood Narrative Performed At [employer] CARLO Matamoros [facility] Performing Organization Address City/[facility] Ph one Number [place] [address] [facility] * Hepatic function panel (06/18/2019 3:36 PM CDT) Protein, Total 6.6 6.0 - 8.3 gm/dL [facility] Albumin 3.3 (L) 3.5 - 5.0 g/dL [facility] Total Bilirubin 1.1 0.2 - 1.2 mg/dL [facility] Bilirubin, Direct 0.4 0.1 - 0.5 mg/dL [facility] Alkaline Phosphatase 106 40 - 150 U/L [facility] AST 27 5 - 34 U/L [facility] ALT 12 6 - 55 U/L [facility] Specimen Blood Narrative Performed At [employer] Sales Associate ID - AMERICO Matamoros [facility] Performing Organization Address City/[facility] Ph one Number [place] [address] [facility] * Comprehensive metabolic panel (06/18/2019 3:36 PM CDT) Protein, Total 6.6 6.0 - 8.3 gm/dL [facility] Albumin 3.3 (L) 3.5 - 5.0 g/dL [facility] Alkaline Phosphatase 106 40 - 150 U/L [facility] Total Bilirubin 1.1 0.2 - 1.2 mg/dL [facility] Sodium 142 136 - 145 meq/L [facility] Potassium 2.8 (L) 3.5 - 5.1 meq/L [facility] Chloride 111 (H) 98 - 107 meq/L [facility] CO2 22 22 - 29 meq/L [facility] BUN 33 (H) 7 - 21 mg/dL [facility] Creatinine 1.84 (H) 0.57 - 1.25 mg/dL [facility] Glucose 92 70 - 105 mg/dL [facility] Calcium 8.3 (L) 8.4 - 10.2 mg/dL [facility] AST 27 5 - 34 U/L [facility] ALT 12 6 - 55 U/L [facility] EGFR 38Comment: ESTIMATED GFR IS mL/min/1.[address] [facility] NOT ACCURATE CREATININE [facility] CLEARANCE IN PREDICTING GLOMERULAR FILTRATION RATE. ESTIMATED GFR IS NOT APPLICABLE FOR DIALYSIS PATIENTS. Specimen Blood Narrative Performed At [employer] Sales Associate ID - AMERICO Matamoros [facility] Performing Organization Address City/State/Zipcode Ph one Number [address] [facility] after 12/26/2018 Insurance Payer Benefit Subscriber ID Type Phone Address Plan / Group [facility] xxxxxxxxx MEDICARE MGD CARE MEDICARE [phone] Advance Directives For more information, please contact: [place] [phone] Date Inactivated Comments Code Status Date Activated 07/11/2019 3:46 PM Full Code 06/18/2019 3:42 PM This code status was determined by: Patient
--- OUTSIDE RECORDS SUMMARY | 2019-12-27 19:24 | XMS REPORT | Continuity of Care Document ---
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 Name Role Phone MD Merle COTTON PCP Jeniffer LOPEZ Attphys Unavailable Amy Bolanos MD Attphys [phone] Dai Sanchez Sin Attphys Unavailable AMY BOLANOS Attphys Unavailable Jeniffer LOPEZ Admphys Unavailable AMY BOLANOS Admphys Unavailable Payers Payer Name Policy Type Policy Number Effective Date Expiration Date Angelique delgado [facility] [id number] 2019 00:00:00 [facility] MEDICARE MGD CAREUNITED MEDICARE HMOxxxxxxxxx xxxxxxxxx [facility] Problems Condition Name Condition Details Condition Category Status Onset Date Resolution Date Last Treatment Date Treating Clinician Comments Source Ileus Ileus Disease Active 2019-06-30 00:00:00 [facility] Acute on chronic congestive heart failure Acute on chr onic congestive heart failure Disease Active 2019-06-19 00:00:00 [facility] 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 Disease Active 2019-06-18 00:00:00 [facility] Chronic kidney disease Chronic kidney disease Disease Active 2019-06-18 00:00:00 [facility] History of ascending aortic repair History of ascending aortic r epair Disease Active 2019-06-18 00:00:00 [facility] History of recent pneumonia History of recent pneumonia Disease Active 2019-06-18 00:00:00 [facility] Cognitive impairment Cognitive impairment Disease Active 00:00:00 [facility] Diabetes mellitus Diabetes mellitus Disease Active 2019-06-18 00:00:00 [facility] DVT (deep venous thrombosis) DVT (deep venous thrombosis) Disease Active 2019-06-18 00:00:00 [facility] Hypertension Hypertension Disease Active 2019-06-18 00:00:00 [facility] Morbid obesity Morbid obesity Disease Active 2019-06-18 00:00:00 [facility] Leukocytosis Leukocytosis Disease Active 2019-06-18 00:00:00 [facility] Ileus Ileus Disease Active 2019-06-18 00:00:00 [facility] Coronary artery disease Coronary artery disease Disease Active 2019-06-18 00:00:00 [facility] Ischemic cardiomyopathy Ischemic cardiomyopathy Disease Active 2019-06-18 00:00:00 [facility] Hypoventilation associated with obesity Hypoventilation asso ciated with obesity Disease Active 2019-06-18 00:00:00 [facility] Depression Depression Disease Active 2019-06-18 00:00:00 [facility] Hypospadias Hypospadias Disease Active 2019-06-18 00:00:00 [facility] Encephalopathy Encephalopathy Disease Active 2019-06-18 00:00:00 [facility] Hypokalemia Hypokalemia Disease Active 2019-06-18 00:00:00 [facility] Acute renal failure superimposed on chronic kidney dis ease Acute renal failure superimposed on chronic kidney disease Disease Active 2019-06-18 00:00:00 [facility] Peripheral venous insufficiency Peripheral venous insufficiency Dis ease Active 2018-12-13 00:00:00 [facility] Degeneration of lumbosacral intervertebral disc Degene ration of lumbosacral intervertebral disc Disease Active 2015-01-18 00:00:00 [facility] Gastroesophageal reflux disease Gastroesophageal reflux disease Dis ease Active 2015-01-18 00:00:00 [facility] Generalized osteoarthritis Generalized osteoarthritis Disease Active 2015-01-18 00:00:00 [facility] Hyperlipidemia Hyperlipidemia Disease Active 2015-01-18 00:00:00 [facility] Thoracic radiculopathy Thoracic radiculopathy Disease Active 2015-01-18 00:00:00 [facility] Fatigue Problem Active [facility] Colitis Problem Active [facility] Allergies, Adverse Reactions, Alerts Allergy Name Allergy Type Status Severity Reaction(s) Onset Date Inacti ve Date Treating Clinician Comments Source Morphine Allergy to substance Active 2019-11-09 00:00:00 [facility] Oxycodone Allergy to substance Active 2019-11-09 00:00:00 [facility] morphine DA Active 2019-09-05 00:00:00 [facility] oxycodone DA Active 2019-09-05 00:00:00 [facility] morphine DA Active [place] 2019-08-02 00:00:00 [facility] oxycodone DA Active SC 2019-08-02 00:00:00 [facility] No Known Allergies DA Active U 2019-07-26 00:00:00 [facility] Codeine Propensity to adverse reactions Active 2019-06-18 0 0:00:00 [facility] Morphine Propensity to adverse reactions Active 2019-06-18 00:00:00 [facility] Social History Social Habit Start Date Stop Date Quantity Comments Source History of tobacco use Cigarette Smoker [facility] Sex Assigned At [facility] Smoking Status Start Date Stop Date Source Former smoker 2019-06-26 00:00:00 2019-06-26 00:00:00 [facility] Medications Ordered Medication Name Filled Medication Name Start Date Stop Da te Current Medication? Ordering Clinician Indication Dosage Frequency Signature (SIG) Comments Components Source Lorazepam Lorazepam 2019-11-22 09:23:00 Yes 1 Every 4 Hours as needed for Agitation [facility] Divalproex Sodium (Depakote) 250 Mg TABEC Divalproex S odium (Depakote) 250 Mg TABEC 2019-11-22 09:22:00 Yes 250 Twice A Day [facility] Ferrous Sulfate Ferrous Sulfate 2019-11-22 09:22:00 Yes 325 Twice Daily With Meals [facility] Lactobacillus Acidophilus Lactobacillus Acidophilus 2019-11-22 09:22:0 0 Yes 1 Twice A Day [facility] Levothyroxine Sodium (Synthroid) 50 Mcg TAB Levothyrox ine Sodium (Synthroid) 50 Mcg TAB 2019-11-22 09:22:00 Yes 50 Daily@06 [facility] Metronidazole (Flagyl) 500 Mg TABLET Metronidazole (Flagyl) 500 Mg TABLET 2019-11-22 09:22:00 Yes 500 Every 8 Hours [facility] Vancomycin Hcl (Vancocin Hcl) 250 Mg CAPSULE Vancomyci n Hcl (Vancocin Hcl) 250 Mg CAPSULE 2019-11-22 09:22:00 Yes 250 Every 6 Hours [facility] magnesium oxide (MAG-OX) 400 mg (241.3 mg magnesium) tablet 2019-07-12 00:00:00 Yes 400mg QD Take 1 tablet (400 mg total) by mouth daily. [facility] spironolactone (ALDACTONE) 50 MG tablet 2019-07-12 00:00:00 Yes 50mg QD Take 1 tablet (50 mg total) by mouth daily. [facility] tamsulosin (FLOMAX) 0.4 mg Cap 24 hr capsule 2019-07-12 00:00:00 Yes .4mg QD Take 1 capsule (0.4 mg total) by mouth daily. [facility] levothyroxine (SYNTHROID, LEVOTHROID) 175 MCG tablet 2019-07-12 00:00:00 2020-07-11 23:59:00 No 175ug Take 1 tablet (175 mcg total) by mouth Every morning on an empty stomach. [facility] potassium chloride 20 mEq TbER 2019-07-11 10:36:08 2019-07-11 00 :00:00 No 1{tbl} Q24H Take 1 tablet by mouth daily. [facility] furosemide (LASIX) 40 MG tablet 2019-07-11 10:36:08 00:00:00 No 40mg QD Take 40 mg by mouth daily. [facility] QUEtiapine (SEROQUEL) 25 MG tablet 2019-07-11 00:00:00 Yes 25mg Q.5D Take 1 tablet (25 mg total) by mouth 2 (two) times daily. [facility] acetaminophen (TYLENOL) 325 MG tablet 2019-07-11 00:00:00 Y es 650mg Take 2 tablets (650 mg total) by mouth every 6 (six) hours as needed. [facility] apixaban (ELIQUIS) 5 mg Tab tablet 2019-07-11 00:00:00 Yes 5mg Q.5D Take 1 tablet (5 mg total) by mouth 2 (two) times daily. [facility] lactulose (CHRONULAC) 20 gram/30 mL solution 2019-07-11 00:00:00 Yes 20g [id number] Take 30 mLs (20 g total) by mouth 3 ( three) times daily. [facility] metoprolol tartrate 75 mg Tab 2019-07-11 00:00:00 Yes 75mg Q.5D Take 75 mg by mouth 2 (two) times daily. [facility] simethicone (MYLICON) 80 MG chewable tablet 2019-07-11 00:00:00 Yes 160mg Q.5D Take 2 tablets (160 mg total) by mouth 2 (two) times d aily. [facility] aspirin 81 MG EC tablet 2019-06-19 13:19:23 Yes 81mg QD Take 81 mg by mouth daily. [facility] amLODIPine (NORVASC) 5 MG tablet 2019-06-19 13:19:23 Yes 5mg QD Take 5 mg by mouth daily. [facility] simvastatin (ZOCOR) 20 MG tablet 2019-06-19 13:19:22 Yes 20mg QD Take 20 mg by mouth nightly. [facility] omeprazole (PRILOSEC) 20 MG capsule 2019-06-19 13:19:22 Yes 20mg QD Take 20 mg by mouth daily. [facility] cyclobenzaprine (FLEXERIL) 10 MG tablet 2019-04-24 00:00:00 Yes 10mg Take 10 mg by mouth 3 (three) times daily as needed. [facility] lidocaine (XYLOCAINE) 5 % ointment 2019-04-19 00:00:00 Y es 1{application} Apply 1 application topically as needed. [facility] QUEtiapine (SEROQUEL) 25 MG tablet 2019-04-14 00:00:00 202 00:00:00 No 25mg Q.[id number] Take 25 mg by mouth 3 (thre e) times daily. [facility] metoprolol succinate (TOPROL-XL) 100 MG 24 hr tablet 2019-04-14 00:00:00 2019-07-11 00:00:00 No 100mg QD Take 100 mg by mouth daily. [facility] Vital Signs Vital Name Observation Time Observation Value Comments Source Body Temperature 2019-11-22 11:30:00 98.6 [degF] [facility] Weight 2019-11-14 17:40:00 214.38 [lb_av] [facility] BMI (Body Mass Index) 2019-11-14 17:40:00 26.1 kg/m2 [facility] Weight 2019-11-09 19:47:00 250 [lb_av] [facility] BMI (Body Mass Index) 2019-11-09 19:47:00 29.6 kg/m2 [facility] Systolic blood pressure 2019-07-11 11:47:00 145 mm[Hg] [facility] Diastolic blood pressure 2019-07-11 11:47:00 67 mm[Hg] [facility] Heart rate 2019-07-11 11:47:00 61 /min [facility] Body temperature 2019-07-11 11:47:00 35.78 Eva [facility] Respiratory rate 2019-07-11 11:47:00 18 /min [facility] Oxygen saturation in Arterial blood by Pulse oximetry 07-10 11:47:00 97 [facility] Measured 2019-07-03 04:16:00 130.7 kg [facility] BMI 2019-07-03 04:16:00 34.17 kg/m2 [facility] Body height 2019-06-19 10:15:00 195.6 cm [facility] Procedures Procedure Date / Time Performed Performing Clinician Jeffrey bao Computed tomography of brain without radiopaque contrast 2019-10 00:00:00 [facility] Computed tomography of abdomen and pelvis with contrast 00:00:00 [facility] RHYTHM STRIP - SCAN 2019-07-14 14:50:46 Provider, Default Scanni [facility] RHYTHM STRIP - SCAN 2019-07-13 11:11:09 Provider, Default Scanni [facility] XR ABDOMEN / KUB 1 VIEW 2019-07-11 07:04:00 Fabiana Reynaga [facility] CBC (HEMOGRAM ONLY) 2019-07-11 04:42:00 Joe Fine [facility] BASIC METABOLIC PANEL (7) 2019-07-11 04:42:00 Joe Fine er [facility] MAGNESIUM 2019-07-11 04:42:00 Joe Fine [facility] PROTHROMBIN TIME/INR 2019-07-11 04:42:00 Joe Fine [facility] APTT 2019-07-11 04:42:00 Joe Fine [facility] PHOSPHORUS 2019-07-11 04:42:00 Joe Fine [facility] TSH 2019-07-10 18:38:00 Gordo Watkins [facility] XR ABDOMEN / KUB 1 VIEW 2019-07-10 06:57:00 Fabiana Reynaga J Luis evelyn [facility] CBC (HEMOGRAM ONLY) 2019-07-10 04:39:00 Joe Fine [facility] BASIC METABOLIC PANEL (7) 2019-07-10 04:39:00 Joe Fine [facility] MAGNESIUM 2019-07-10 04:39:00 Joe Fine [facility] PROTHROMBIN TIME/INR 2019-07-10 04:39:00 Joe Fine [facility] APTT 2019-07-10 04:39:00 Joe Fine [facility] PHOSPHORUS 2019-07-10 04:39:00 Joe Fine [facility] XR ABDOMEN / KUB 1 VIEW 2019-07-09 06:34:00 Art Avendaño [facility] CBC (HEMOGRAM ONLY) 2019-07-09 04:29:00 Joe Fine [facility] BASIC METABOLIC PANEL (7) 2019-07-09 04:29:00 Joe Fine [facility] MAGNESIUM 2019-07-09 04:29:00 Joe Fine [facility] PROTHROMBIN TIME/INR 2019-07-09 04:29:00 Joe Fine CH, I [facility] APTT 2019-07-09 04:29:00 Joe Fine [facility] PHOSPHORUS 2019-07-09 04:29:00 Joe Fine [facility] CBC (HEMOGRAM ONLY) 2019-07-08 04:25:00 Joe Fine [facility] BASIC METABOLIC PANEL (7) 2019-07-08 04:25:00 Babatunde Joe [facility] MAGNESIUM 2019-07-08 04:25:00 Joe Fine [facility] PROTHROMBIN TIME/INR 2019-07-08 04:25:00 Joe Fine [facility] APTT 2019-07-08 04:25:00 Creden, [facility] PHOSPHORUS 2019-07-08 04:25:00 Creden [facility] XR ABDOMEN / KUB 1 VIEW 2019-07-08 04:10:00 Art Avendaño [facility] POTASSIUM 2019-07-07 14:44:00 Beverley-Smart, [facility] MAGNESIUM 2019-07-07 14:44:00 Beverley-Smart, [facility] CBC (HEMOGRAM ONLY) 2019-07-07 07:24:[address] [facility] BASIC METABOLIC PANEL (7) 2019-07-07 07:24:00 [facility] MAGNESIUM 2019-07-07 07:24:[address] [facility] PROTHROMBIN TIME/INR 2019-07-07 07:24:00 [facility] Jo[facility]ess Reyes [facility] APTT 2019-07-07 07:24:[address] [facility] PHOSPHORUS 2019-07-07 07:24:[address] [facility] XR ABDOMEN / KUB 1 VIEW 2019-07-07 04:01:00 Art Avendaño [facility] CBC (HEMOGRAM ONLY) 2019-07-06 05:44:[address] [facility] BASIC METABOLIC PANEL (7) 2019-07-06 05:44:00 Babatunde Joe Wilkinson [facility] MAGNESIUM 2019-07-06 05:44:[address] [facility] PROTHROMBIN TIME/INR 2019-07-06 05:44:00 [facility] Joe Eric [facility] APTT 2019-07-06 05:44:[address] [facility] PHOSPHORUS 2019-07-06 05:44:[address] [facility] XR ABDOMEN / KUB 1 VIEW 2019-07-06 04:01:00 Art Avendaño [facility] POTASSIUM 2019-07-05 17:18:00 [facility] KUB 1 VIEW 2019-07-05 07:17:00 Beverley-Smart, Simah [facility] CBC (HEMOGRAM ONLY) 2019-07-05 03:58:00 Credmine Joetess Reyes [facility] BASIC METABOLIC PANEL (7) 2019-07-05 03:58:00 Credmine Joetess Wilkinson [facility] MAGNESIUM 2019-07-05 03:58:00 Creden, Joe Reyes [facility] PROTHROMBIN TIME/INR 2019-07-05 03:58:00 Joe Fine [facility] APTT 2019-07-05 03:58:00 CredenJoe [facility] PHOSPHORUS 2019-07-05 03:58:00 CredenJoe [facility] POTASSIUM 2019-07-04 16:01:00 Beverley-Smart, [facility] CBC (HEMOGRAM ONLY) 2019-07-04 04:30:00 Joe Fine [facility] BASIC METABOLIC PANEL (7) 2019-07-04 04:30:00 Babatunde Joetess Wilkinson [facility] MAGNESIUM 2019-07-04 04:30:00 CredenJoe [facility] PROTHROMBIN TIME/INR 2019-07-04 04:30:00 Joe Fine [facility] APTT 2019-07-04 04:30:00 CredenJoe [facility] PHOSPHORUS 2019-07-04 04:30:00 Creden, Joe Reyes [facility] TSH 2019-07-04 04:30:00 Kasi Ron [facility] POTASSIUM 2019-07-03 16:18:[facility]-07-03 16:18:00 Anette Horowitz [facility] XR ABDOMEN / KUB 1 VIEW 2019-07-03 07:52:00 Palomo Quinn [facility] CBC (HEMOGRAM ONLY) 2019-07-03 05:32:00 Joe Fine [facility] BASIC METABOLIC PANEL (7) 2019-07-03 05:32:00 Joe Fine [facility] MAGNESIUM 2019-07-03 05:32:00 Joe Fine [facility] PROTHROMBIN TIME/INR 2019-07-03 05:32:00 Joe Fine CH [facility] APTT 2019-07-03 05:32:00 Joe Fine [facility] PHOSPHORUS 2019-07-03 05:32:00 Joe Fine [facility] XR ABDOMEN / KUB 1 VIEW 2019-07-02 06:18:00 Palomo Quinn [facility] CBC (HEMOGRAM ONLY) 2019-07-02 04:52:00 Joe Fine [facility] BASIC METABOLIC PANEL (7) 2019-07-02 04:52:00 Joe Fine [facility] MAGNESIUM 2019-07-02 04:52:00 Joe Fine [facility] PROTHROMBIN TIME/INR 2019-07-02 04:52:00 Joe Fine CH [facility] APTT 2019-07-02 04:52:00 Joe Fine [facility] PHOSPHORUS 2019-07-02 04:52:00 Joe Fine [facility] XR ABDOMEN / KUB 1 VIEW 2019-07-01 06:47:00 Palomo Quinn [facility] CBC (HEMOGRAM ONLY) 2019-07-01 04:41:00 Joe Fine [facility] BASIC METABOLIC PANEL (7) 2019-07-01 04:41:00 Babatunde Joe Pet [facility] MAGNESIUM 2019-07-01 04:41:00 Joe Fine [facility] PROTHROMBIN TIME/INR 2019-07-01 04:41:00 Joe Fine CH, I [facility] APTT 2019-07-01 04:41:00 Joe Fine [facility] PHOSPHORUS 2019-07-01 04:41:00 Joe Fine [facility] MAGNESIUM 2019-06-30 17:24:00 Anette Horowitzjanneth [facility] POTASSIUM 2019-06-30 17:24:00 Anette Horowitz [facility] XR ABDOMEN / KUB 1 VIEW 2019-06-30 07:02:00 Palomo Quinn Hemank umar [facility] CBC (HEMOGRAM ONLY) 2019-06-30 04:23:00 Joe Fine [facility] BASIC METABOLIC PANEL (7) 2019-06-30 04:23:00 Joe Fine [facility] MAGNESIUM 2019-06-30 04:23:00 Joe Fine [facility] PROTHROMBIN TIME/INR 2019-06-30 04:23:00 Joe Fine CH [facility] APTT 2019-06-30 04:23:00 Joe Fine [facility] PHOSPHORUS 2019-06-30 04:23:00 Joe Fine [facility] POTASSIUM 2019-06-29 13:04:00 Beverley-Smart, Simah [facility] CBC (HEMOGRAM ONLY) 2019-06-29 04:57:00 Joe Fine [facility] BASIC METABOLIC PANEL (7) 2019-06-29 04:57:00 Joe Fine er [facility] MAGNESIUM 2019-06-29 04:57:00 Joe Fine [facility] PROTHROMBIN TIME/INR 2019-06-29 04:57:00 Joe Fine [facility] I [facility] APTT 2019-06-29 04:57:00 Joe Fine [facility] PHOSPHORUS 2019-06-29 04:57:00 Joe Fine [facility] CT ABDOMEN/PELVIS WITHOUT IV CONTRAST 2019-06-29 01:07:00 Avis Fabiana sanchez [facility] POTASSIUM 2019-06-28 22:18:00 [facility]BD[facility] / KUB 1 VIEW 2019-06-28 13:57:00 Beverley-Smart, Simah C [facility] CBC (HEMOGRAM ONLY) 2019-06-28 05:26:00 Babatunde Joetess Reyes [facility] BASIC METABOLIC PANEL (7) 2019-06-28 05:26:00 Babatunde Joetess Wilkinson [facility] MAGNESIUM 2019-06-28 05:26:00 Joe Fine [facility] PROTHROMBIN TIME/INR 2019-06-28 05:26:00 Joe Fine CH [facility] APTT 2019-06-28 05:26:00 Joe Fine [facility] PHOSPHORUS 2019-06-28 05:26:00 Joe Fine [facility] CBC (HEMOGRAM ONLY) 2019-06-27 04:36:00 Joe Fine [facility] BASIC METABOLIC PANEL (7) 2019-06-27 04:36:00 Joe Fine [facility] MAGNESIUM 2019-06-27 04:36:00 Joe Fine [facility] PROTHROMBIN TIME/INR 2019-06-27 04:36:00 Joe Fine CH [facility] APTT 2019-06-27 04:36:00 Joe Fine [facility] PHOSPHORUS 2019-06-27 04:36:00 Joe Fine [facility] TSH 2019-06-27 04:36:00 Joe Fine [facility] POCT-GLUCOSE METER 2019-06-26 08:43:00 Nestor Bolanos [facility] CBC (HEMOGRAM ONLY) 2019-06-26 05:40:00 Babatunde Joetess Reyes [facility] BASIC METABOLIC PANEL (7) 2019-06-26 05:40:00 Creden, Joetess Wilkinson mack [facility] MAGNESIUM 2019-06-26 05:40:00 Joe Fine [facility] PROTHROMBIN TIME/INR 2019-06-26 05:40:00 Joe Fine [facility] I [facility] APTT 2019-06-26 05:40:00 Joe Fine [facility] PHOSPHORUS 2019-06-26 05:40:00 Joe Fine [facility] POCT-GLUCOSE METER 2019-06-25 21:00:00 Coslorena [facility] POCT-GLUCOSE METER 2019-06-25 16:43:00 Coselli [facility] POCT-GLUCOSE METER 2019-06-25 07:58:00 Coslorena [facility] CBC (HEMOGRAM ONLY) 2019-06-25 05:27:00 Joe Fine [facility] BASIC METABOLIC PANEL (7) 2019-06-25 05:27:00 Joe Fine mack [facility] MAGNESIUM 2019-06-25 05:27:00 Joe Fine [facility] PROTHROMBIN TIME/INR 2019-06-25 05:27:00 Joe Fine [facility] APTT 2019-06-25 05:27:00 Joe Fine [facility] PHOSPHORUS 2019-06-25 05:27:00 Joe Fine [facility] POCT-GLUCOSE METER 2019-06-24 20:56:00 Coslorena [facility] POCT-GLUCOSE METER 2019-06-24 16:46:00 Coselli [facility] POCT-GLUCOSE METER 2019-06-24 12:23:00 Coselli [facility] POCT-GLUCOSE METER 2019-06-24 07:46[facility] 2019-06-24 04:57:00 Creden, Joe [facility] BASIC METABOLIC PANEL (7) 2019-06-24 04:57:00 BabatundeJoe Pet er [facility] MAGNESIUM 2019-06-24 04:57:[address] [facility] PROTHROMBIN TIME/INR 2019-06-24 04:57:00 Joe Fine I [facility] APTT 2019-06-24 04:57:00 Babatunde Joe [facility] PHOSPHORUS 2019-06-24 04:57:[address] [facility] POCT-GLUCOSE METER 2019-06-23 20:58:00 Cesar [facility] TRANSFUSION SERVICE REPORT - SCAN 2019-06-23 17:50:36 Provid er, Default Scanning [facility] POCT-GLUCOSE METER 2019-06-23 17:14:00 Cesar [facility] POTASSIUM 2019-06-23 14:29:[address] [facility] XR KNEE LEFT 1 OR 2 VIEWS 2019-06-23 10:53:00 [facility] PO[facility]-GLUCOSE METER 2019-06-23 09:15:00 Cesar [facility] CBC (HEMOGRAM ONLY) 2019-06-23 05:01:[address] [facility] BASIC METABOLIC PANEL (7) 2019-06-23 05:01:00 Babatunde Joe [facility] MAGNESIUM 2019-06-23 05:01:[address] [facility] PROTHROMBIN TIME/INR 2019-06-23 05:01:00 Babatunde Joetess Reyes [facility] APTT 2019-06-23 05:01:[address] [facility] PHOSPHORUS 2019-06-23 05:01:[address] [facility] PREPARE LEUKO-REDUCED RBC 2019-06-22 23:54:00 Beverley-Smart, [facility] POTASSIUM 2019-06-22 21:29:00 Mack Perezparish Greco [facility] POCT-GLUCOSE METER 2019-06-22 21:05:00 Cesar [facility] TRANSFUSION SERVICE REPORT - SCAN 2019-06-22 17:50:32 Provid er, Default Scanning [facility] BASIC METABOLIC PANEL (7) 2019-06-22 16:43:00 David Perez Art alfreda [facility] POCT-GLUCOSE METER 2019-06-22 11:45:00 Cesar [facility] POCT-GLUCOSE METER 2019-06-22 07:40:00 Cesar [facility] BASIC METABOLIC PANEL (7) 2019-06-22 07:04:00 David Perez [facility] CBC (HEMOGRAM ONLY) 2019-06-22 07:04:00 Joe Fine [facility] MAGNESIUM 2019-06-22 07:04:00 Joe Fine [facility] PROTHROMBIN TIME/INR 2019-06-22 07:04:00 Joe Fine [facility] APTT 2019-06-22 07:04:00 Babatunde Joetess Reyes [facility] POCT-GLUCOSE METER 2019-06-21 21:05:00 Nestor Bolanos [facility] BASIC METABOLIC PANEL (7) 2019-06-21 20:38:00 David Perez [facility] MAGNESIUM 2019-06-21 20:38:00 Claude Neumann [facility] TRANSFUSE LEUKO-REDUCED RED BLOOD CELLS 2019-06-21 17:00:46 Akpa n-Smart, [facility] POCT-GLUCOSE METER 2019-06-21 16:01:00 Nestor Bolanos [facility] BASIC METABOLIC PANEL (7) 2019-06-21 13:53:00 Beverley-Smart, [facility] POCT-GLUCOSE METER 2019-06-21 12:08:00 Coselli, [facility] POCT-GLUCOSE METER 2019-06-21 07:47:00 Cesar [facility] CBC (HEMOGRAM ONLY) 2019-06-21 05:42:00 Babatunde Joetess Reyes [facility] BASIC METABOLIC PANEL (7) 2019-06-21 05:42:00 Babatunde [facility] MAGNESIUM 2019-06-21 05:42:00 Babatunde [facility] PROTHROMBIN TIME/INR 2019-06-21 05:42:00 Rohith Joetess Reyes [facility] APTT 2019-06-21 05:42:[address] [facility] POCT-GLUCOSE METER 2019-06-20 21:18:00 [facility] BASIC METABOLIC PANEL (7) 2019-06-20 20:52:00 Babatunde [facility] MAGNESIUM 2019-06-20 20:52:00 Babatunde [facility] PHOSPHORUS 2019-06-20 20:52:[address] [facility] POCT-GLUCOSE METER 2019-06-20 15:33:00 [facility] CBC W/PLT COUNT & AUTO DIFFERENTIAL 2019-06-20 14:12:00 Zeferino Ceballos i [facility] POCT-GLUCOSE METER 2019-06-20 11:44:00 [facility] X[facility] ABDOMEN / KUB 1 VIEW 2019-06-20 11:27:00 Anette Horowitz [facility] BASIC METABOLIC PANEL (7) 2019-06-20 08:07:00 Claude Neumann I [facility] POCT-GLUCOSE METER 2019-06-20 07:54:00 [facility] CBC (HEMOGRAM ONLY) 2019-06-20 01:15:[address] [facility] MAGNESIUM 2019-06-20 01:14:00 Anette Horowitz [facility] BASIC METABOLIC PANEL (7) 2019-06-20 01:14:00 Joe Fine er [facility] PROTHROMBIN TIME/INR 2019-06-20 01:14:00 Joe Fine [facility] I [facility] APTT 2019-06-20 01:14:00 Joe Fine [facility] ECHOCARDIOGRAM REPORT - SCAN 2019-06-19 21:10:46 Provider, Defau lt Scanning [facility] TRANSFUSION SERVICE REPORT - SCAN 2019-06-19 17:51:59 Provid er, Default Scanning [facility] BASIC METABOLIC PANEL (7) 2019-06-19 15:24:00 David Perez [facility] AMMONIA 2019-06-19 09:11:00 David Perez [facility] CBC (HEMOGRAM ONLY) 2019-06-19 04:04:00 Joe Fine [facility] BASIC METABOLIC PANEL (7) 2019-06-19 04:04:00 Joe Fine [facility] MAGNESIUM 2019-06-19 04:04:00 Joe Fine [facility] PHOSPHORUS 2019-06-19 04:04:00 Joe Fine [facility] PROTHROMBIN TIME/INR 2019-06-19 04:04:00 Joe Fine [facility] APTT 2019-06-19 04:04:00 Joe Fine [facility] HEMOGLOBIN A1C 2019-06-19 04:04:00 Joe Fine [facility] TSH 2019-06-19 04:04:00 Joe Fine [facility] POTASSIUM 2019-06-19 00:22:00 Joe Fine [facility] BASIC METABOLIC PANEL (7) 2019-06-19 00:22:00 Anette Horowitz [facility] MAGNESIUM 2019-06-19 00:22:00 Anette Horowitz [facility] POTASSIUM 2019-06-18 20:20:00 Joe Fine [facility] MAGNESIUM 2019-06-18 20:20:00 Joe Fine [facility] ECG 12-LEAD 2019-06-18 17:31:20 Unknown, Hl7 [facility] ECG 12-LEAD 2019-06-18 17:30:20 Unknown, Hl7 [facility] ECG 12-LEAD 2019-06-18 17:29:36 Unknown, Hl7 [facility] RAPID INFLUENZA A&B SCREEN 2019-06-18 16:57:00 Joe Fine Pe [facility] 2D ECHO W/ DOPPLER (CW/PW/COLOR) 2019-06-18 16:53:42 Justin Fine [facility] BLOOD CULTURE 2019-06-18 16:46:00 Joe Fine [facility] BLOOD CULTURE 2019-06-18 16:40:00 Joe Fine [facility] AMMONIA 2019-06-18 16:38:00 Joe Fine [facility] ABORH, MANUAL 2019-06-18 16:38:00 Tiki Mcarthur [facility] XR ABDOMEN / KUB 1 VIEW 2019-06-18 16:08:00 Joe Fine [facility] XR CHEST 1 VIEW PORTABLE/BEDSIDE 2019-06-18 15:56:00 Justin Fine [facility] BLOOD GAS, ARTERIAL 2019-06-18 15:37:00 Joe Fine [facility] COMPREHENSIVE METABOLIC PANEL 2019-06-18 15:36:00 Joe Fine [facility] HEPATIC FUNCTION PANEL 2019-06-18 15:36:00 Joe Fine [facility] LACTIC ACID, VENOUS 2019-06-18 15:36:00 Joe Fine [facility] PT/APTT 2019-06-18 15:36:00 Joe Fine [facility] PROTHROMBIN TIME/INR 2019-06-18 15:36:00 Joe Fine [facility] I [facility] MAGNESIUM 2019-06-18 15:36:00 Joe Fine [facility] PHOSPHORUS 2019-06-18 15:36:00 Joe Fine [facility] TYPE AND SCREEN, AUTOMATED 2019-06-18 15:36:00 Joe Fine Pe [facility] CBC W/PLT COUNT & AUTO DIFFERENTIAL 2019-06-18 15:36:00 Babatunde Joetess Reyes [facility] Encounters Start Date/Time End Date/Time Encounter Type Admission Type Attendi [facility] Care Department Encounter ID Source 2019-11-14 14:40:00 2019-11-22 13:29:00 Discharged Inpatient 1 SAMMY LOPEZ [facility] [id number] [facility] 2019-11-09 20:30:00 2019-11-09 21:22:00 Departed Emergency Room [facility] [id number] [facility] Results Test Description Test Time Test Comments Results Result Comments Source GLUBED 2019-12-20 21:02:00 Test Item GLUBED (test code = GLUBED) 104 mg/dL 74-106 N Performed by certified sleeve presser operator at [facility] - XR CHEST 1 [id number] 08:46:00 FAX: Sammy Mccain MD [place]: B St: [facility] FAX: Tate Wheeler MD [phone] Name: [place] [facility] : 1960 Age/S: 59/M [address] [facility] Unit #: [id number] Loc: V.2075 [address] [address] Phys: Tate Elena MD Acct: [id number] Dis Date: Status: ADM IN PHONE #: [phone] Exam Date: 12/20/2019 0809 FAX #: [phone] Reason: pneumonia EXAMS: CPT CODE: [id number] XR CHEST 1 V 80911 REASON FOR EXAM: pneumonia Exam Order Date: 12/20/2019 5:00 AM Ordering M.D.: Tate Elena MD PROCEDURE: - XR CHEST 1 V COMPARISON: Chest x-ray December 14, 2019 FINDINGS/ IMPRESSION: The lungs are better aerated from the previous examination however there is a hazy opacity in the right lung base which may represent residual infection. Additionally there appears to be subsegmental atelectasis in the left lung base. 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 Aorta is tortuous. There is widening of the left acromial clavicular joint. Upper abdomen is radiographically unremarkable. Location: [facility] at 0846 Reported and signed by: Lico Garcia MD CC: Sammy Lopez MD; Tate Elena MD Technologist: RT Tino(R) Trnscrd Date/Time/By: 12/20/2019 (845) : By: [email or web address] [facility] Print D/T: S: 12/20/2019 (0849) PAGE 1 Signed Report [id number] 20:42:00* Test Item Value Reference Range Interpretation Comments GLUBED (test code = GLUBED) 78 mg/dL 74-106 N Performed by certified sleeve presser operator at [facility] [id number] 16:51:00* Test Item Value Reference Range Interpretation Comments GLUBED (test code = GLUBED) 93 mg/dL 74-106 N Performed by certified sleeve presser operator at [facility] [id number] 12:12:00* Test Item Value Reference Range Interpretation Comments GLUBED (test code = GLUBED) 84 mg/dL 74-106 N Performed by certified sleeve presser operator at [facility] COMPREHENSIVE METABOLIC [id number] 06:51:00* Test Item Value Reference Range Interpretation Comments SODIUM (test code = NA) 139 mmol/L 136-145 N POTASSIUM (test code = K) 4.0 mmol/L 3.5-5.1 N CHLORIDE (test code = CL) 106.0 mmol/L 98-107 N CARBON DIOXIDE (test code = CO2) 26.0 mmol/L 21-32 N ANION GAP (test code = GAP) 11.0 10-20 N GLUCOSE (test code = GLU) 114 mg/dL 74-106 H BLOOD UREA NITROGEN (test code = BUN) 11 mg/dL 7-18 N GLOMERULAR FILTRATION RATE (test code = GFR) > 60 mL/min >=60 Estimated GFR by using Modified MDRD formula.Chronic kidney disease is defined as either kidney damageor GFR <60 mL/min/1.73 m2 for >3 months. CREATININE (test code = CREAT) 0.90 mg/dL 0.7-1.3 N BUN/CREATININE RATIO (test code = BUN/CREA) 12.3 10-20 N TOTAL PROTEIN (test code = PROT) 5.5 gram/dL 6.4-8.2 L ALBUMIN (test code = ALB) 2.2 g/dL 3.4-5.0 L GLOBULIN (test code = GLOB) 3.3 gram/dL 2.7-4.2 N ALBUMIN/GLOBULIN RATIO (test code = A/G) 0.7 0.75-1.50 L CALCIUM (test code = CA) 8.2 mg/dL 8.5-10.1 L BILIRUBIN TOTAL (test code = BILT) 0.20 mg/dL 0.0-1.0 N SGOT/AST (test code = AST) 11 IUnit/L 15-37 L SGPT/ALT (test code = ALT) < 6 IUnit/L 12-78 L ALKALINE PHOSPHATASE TOTAL (test code = ALKP) 62 IUnit/L 45-117 N Note change in reference range due to change in reagent. [id number] 06:51:00* Test Item Value Reference Range Interpretation Comments PHOSPHORUS (test code = PHOS) 4.5 mg/dL 2.5-4.9 N [id number] 06:51:00* Test Item Value Reference Range Interpretation Comments MAGNESIUM (test code = MAG) 2.0 mg/dL 1.8-2.4 N COMPREHENSIVE METABOLIC [id number] 06:40:00* Test Item Value Reference Range Interpretation Comments SODIUM (test code = NA) 139 mmol/L 136-145 N POTASSIUM (test code = K) 4.0 mmol/L 3.5-5.1 N CHLORIDE (test code = CL) 106.0 mmol/L 98-107 N CARBON DIOXIDE (test code = CO2) mmol/L 21-32 ANION GAP (test code = GAP) 10-20 GLUCOSE (test code = GLU) mg/dL 74-106 BLOOD UREA NITROGEN (test code = BUN) mg/dL 7-18 GLOMERULAR FILTRATION RATE (test code = GFR) mL/min >=60 CREATININE (test code = CREAT) mg/dL 0.7-1.3 BUN/CREATININE RATIO (test code = BUN/CREA) 10-20 TOTAL PROTEIN (test code = PROT) gram/dL 6.4-8.2 ALBUMIN (test code = ALB) g/dL 3.4-5.0 GLOBULIN (test code = GLOB) gram/dL 2.7-4.2 ALBUMIN/GLOBULIN RATIO (test code = A/G) 0.75-1.50 CALCIUM (test code = CA) mg/dL 8.5-10.1 BILIRUBIN TOTAL (test code = BILT) mg/dL 0.0-1.0 SGOT/AST (test code = AST) IUnit/L 15-37 SGPT/ALT (test code = ALT) IUnit/L 12-78 ALKALINE PHOSPHATASE TOTAL (test code = ALKP) IUnit/L 45-117 [id number] 06:40:00* Test Item Value Reference Range Interpretation Comments PHOSPHORUS (test code = PHOS) mg/dL 2.5-4.9 [id number] 06:40:00* Test Item Value Reference Range Interpretation Comments MAGNESIUM (test code = MAG) mg/dL 1.8-2.4 [id number] 05:27:00* Test Item Value Reference Range Interpretation Comments GLUBED (test code = GLUBED) 98 mg/dL 74-106 N Performed by certified sleeve presser operator at [facility] [id number] 22:12:00* Test Item Value Reference Range Interpretation Comments GLUBED (test code = GLUBED) 90 mg/dL 74-106 N Performed by certified sleeve presser operator at [facility] [id number] 16:43:00* Test Item Value Reference Range Interpretation Comments GLUBED (test code = GLUBED) 68 mg/dL 74-106 L Performed by certified sleeve presser operator at [facility] - XR SWLW FUNC W/C [id number] 15:07:00 FAX: Sammy Mccain MD [place]: St: ADM Name: [place] [facility] : [birth year] Age/S: 59/M [address] [facility] Unit #: [id number] Loc: V.5 [place] [address] Phys: Sammy Lopez MD Acct: [id number] Dis Date: Status: ADM IN PHONE #: [phone] Exam Date: 12/18/2019 1424 FAX #: [phone] Reason: DYSPHAGIA EXAMS: CPT CODE: [id number] XR SWLW FUNC W/C V 41537 CLINICAL HISTORY: DYSPHAGIA TECHNIQUE: Fluoroscopic swallow function evaluation in conjunction with speech therapy. Fluoroscopy time 151 seconds;Dose: 9.9 mGy. IMPRESSION: Handling of varying consistencies of barium were evaluated. The patient aspirated both thin and nectar consis tency barium. No aspiration of puree or mechanical soft barium was seen. Airway protective maneuvers were effective in preventing aspiration alt omar with thin barium the patient demonstrated laryngeal penetration despite the protective maneuver. Please see separate sp [facility] pathology report for complete discussion. Location: [facility] at 9367 Reported and signed by: Lico Garcia MD CC : Sammy Lopez MD Technologist: RT ZANDRA(R) Trnscrd Date/Time/By: 12/18/2019 (8424) : By: [email or web address] Orig Print D/T: S: 12/18/2019 (8371) PAGE 1 Signed Report [id number] 11:23:00* Test Item Value Reference Range Interpretation Comments GLUBED (test code = GLUBED) 93 mg/dL 74-106 N Performed by certified sleeve presser operator at [facility] CBC W/MANUAL [id number] 06:45:00* Test Item Value Reference Range Interpretation Comments WHITE BLOOD CELL (test code = WBC) 11.6 K/mm3 4.5-12.5 N RED BLOOD CELL (test code = RBC) 2.78 mill/mm3 4.0-5.8 L HEMOGLOBIN (test code = HGB) 7.8 gram/dL 13.0-17.5 L HEMATOCRIT (test code = HCT) 24.9 % 42.0-52.0 L MEAN CELL VOLUME (test code = MCV) 89.6 fL 80-98 N MEAN CELL HGB (test code = MCH) 28.1 picogram 27.0-33.0 N MEAN CELL HGB CONCETRATION (test code = MCHC) 31.3 gram/dL 33.0-36. 0 L RED CELL DISTRIBUTION WIDTH (test code = RDW) 20.0 % 11.6-16. 2 H RED CELL DISTRIBUTION WIDTH SD (test code = RDW-SD) 65.0 fL 37 .0-51.0 H PLATELET COUNT (test code = PLT) 262 K/mm3 150-450 N MEAN PLATELET VOLUME (test code = MPV) 9.7 fL 6.7-11.0 N IMMATURE GRANULOCYTE % (test code = IG%) 11.1 % 0.0-5.0 H "The appearance of immature granulocytes (myelocytes,pro-myelocytes, meta-myelocytes) in the peripheral blood ofnon- individuals can indicate a response toinfection, inflammation, or other stimulus to the bonemarrow" NUCLEATED RBC % (test code = NRBC%) 0.0 % 0-0 N NEUTROPHIL # (test code = NT#) 7.32 K/mm3 1.8-7.7 N IMMATURE GRANULOCYTE # (test code = IG#) 1.28 x10 3/uL 0-0.03 H LYMPHOCYTE # (test code = LY#) 1.67 K/mm3 1.0-5.0 N MONOCYTE # (test code = MO#) 1.20 K/mm3 0-0.8 H EOSINOPHIL # (test code = EO#) 0.00 K/mm3 0.0-0.5 N BASOPHIL # (test code = BA#) 0.09 K/mm3 0.0-0.2 N NUCLEATED RBC # (test code = NRBC#) 0.00 K/mm3 0.0-0.1 N MANUAL DIFF REQUIRED (test code = MDIFF) YES STAIN ACCEPTABILITY (test code = STN ACCEPTABLE) STAIN ACCEPTABLE TOTAL CELLS COUNTED (test code = TCC) 115 #CELLS SEGMENTED NEUTROPHILS (test code = SEG) 80.0 % 39-69 H BAND NEUTROPHIL (test code = BAND) 0 % 0-10 N LYMPHOCYTE (test code = LYMPH) 11.3 % 25-55 L REACTIVE LYMPH (test code = RELYMPH) 0 % MONOCYTE (test code = MON) 5.2 % 0-10 N EOSINOPHIL (test code = EOS) 0 % 0.0-5.0 N BASOPHIL (test code = BASO) 0 % 0-1.0 N METAMYELOCYTE (test code = META) 0 % 0-0 N MYELOCYTE (test code = MYELO) 3.5 % 0.0-0.0 H PROMYELOCYTE (test code = PROM) 0 % 0-0 N POLYCHROMASIA (test code = POLC) 1+ POIKILOCYTOSIS (test code = POIK) 1+ PLATELET ESTIMATE (test code = PLTEST) ADEQUATE PLATELET MORPHOLOGY (test code = PLTMORPH) NORMAL IMMATURE FORMS (test code = IMMAT) 0 % 0-0 N COMPREHENSIVE METABOLIC [id number] 06:38:00* Test Item Value Reference Range Interpretation Comments SODIUM (test code = NA) 140 mmol/L 136-145 N POTASSIUM (test code = K) 3.9 mmol/L 3.5-5.1 N CHLORIDE (test code = CL) 106.0 mmol/L 98-107 N CARBON DIOXIDE (test code = CO2) 29.0 mmol/L 21-32 N ANION GAP (test code = GAP) 8.9 10-20 L GLUCOSE (test code = GLU) 100 mg/dL 74-106 N BLOOD UREA NITROGEN (test code = BUN) 10 mg/dL 7-18 N GLOMERULAR FILTRATION RATE (test code = GFR) > 60 mL/min >=60 Estimated GFR by using Modified MDRD formula.Chronic kidney disease is defined as either kidney damageor GFR <60 mL/min/1.73 m2 for >3 months. CREATININE (test code = CREAT) 0.70 mg/dL 0.7-1.3 N BUN/CREATININE RATIO (test code = BUN/CREA) 14.7 10-20 N TOTAL PROTEIN (test code = PROT) 5.5 gram/dL 6.4-8.2 L ALBUMIN (test code = ALB) 2.2 g/dL 3.4-5.0 L GLOBULIN (test code = GLOB) 3.3 gram/dL 2.7-4.2 N ALBUMIN/GLOBULIN RATIO (test code = A/G) 0.7 0.75-1.50 L CALCIUM (test code = CA) 8.1 mg/dL 8.5-10.1 L BILIRUBIN TOTAL (test code = BILT) 0.20 mg/dL 0.0-1.0 N SGOT/AST (test code = AST) 8 IUnit/L 15-37 L SGPT/ALT (test code = ALT) < 6 IUnit/L 12-78 L ALKALINE PHOSPHATASE TOTAL (test code = ALKP) 61 IUnit/L 45-117 N Note change in reference range due to change in reagent. [id number] 06:38:00* Test Item Value Reference Range Interpretation Comments PHOSPHORUS (test code = PHOS) 4.4 mg/dL 2.5-4.9 N [id number] 06:38:00* Test Item Value Reference Range Interpretation Comments MAGNESIUM (test code = MAG) 1.9 mg/dL 1.8-2.4 N [id number] 06:37:00* Test Item Value Reference Range Interpretation Comments TRIGLYCERIDES (test code = TRIG) 143 mg/dL 20-150 N Are CHOL,TRIG & HDL ordered? NOCOMPREHENSIVE METABOLIC [id number] 06:27:00 * Test Item Value Reference Range Interpretation Comments SODIUM (test code = NA) 140 mmol/L 136-145 N POTASSIUM (test code = K) 3.9 mmol/L 3.5-5.1 N CHLORIDE (test code = CL) 106.0 mmol/L 98-107 N CARBON DIOXIDE (test code = CO2) mmol/L 21-32 ANION GAP (test code = GAP) 10-20 GLUCOSE (test code = GLU) mg/dL 74-106 BLOOD UREA NITROGEN (test code = BUN) mg/dL 7-18 GLOMERULAR FILTRATION RATE (test code = GFR) mL/min >=60 CREATININE (test code = CREAT) mg/dL 0.7-1.3 BUN/CREATININE RATIO (test code = BUN/CREA) 10-20 TOTAL PROTEIN (test code = PROT) gram/dL 6.4-8.2 ALBUMIN (test code = ALB) g/dL 3.4-5.0 GLOBULIN (test code = GLOB) gram/dL 2.7-4.2 ALBUMIN/GLOBULIN RATIO (test code = A/G) 0.75-1.50 CALCIUM (test code = CA) mg/dL 8.5-10.1 BILIRUBIN TOTAL (test code = BILT) mg/dL 0.0-1.0 SGOT/AST (test code = AST) IUnit/L 15-37 SGPT/ALT (test code = ALT) IUnit/L 12-78 ALKALINE PHOSPHATASE TOTAL (test code = ALKP) IUnit/L 45-117 [id number] 06:27:00* Test Item Value Reference Range Interpretation Comments PHOSPHORUS (test code = PHOS) mg/dL 2.5-4.9 [id number] 06:27:00* Test Item Value Reference Range Interpretation Comments MAGNESIUM (test code = MAG) mg/dL 1.8-2.4 CBC W/MANUAL [id number] 05:59:00* Test Item Value Reference Range Interpretation Comments WHITE BLOOD CELL (test code = WBC) 11.6 K/mm3 4.5-12.5 N RED BLOOD CELL (test code = RBC) 2.78 mill/mm3 4.0-5.8 L HEMOGLOBIN (test code = HGB) 7.8 gram/dL 13.0-17.5 L HEMATOCRIT (test code = HCT) 24.9 % 42.0-52.0 L MEAN CELL VOLUME (test code = MCV) 89.6 fL 80-98 N MEAN CELL HGB (test code = MCH) 28.1 picogram 27.0-33.0 N MEAN CELL HGB CONCETRATION (test code = MCHC) 31.3 gram/dL 33.0-36. 0 L RED CELL DISTRIBUTION WIDTH (test code = RDW) 20.0 % 11.6-16. 2 H RED CELL DISTRIBUTION WIDTH SD (test code = RDW-SD) 65.0 fL 37 .0-51.0 H PLATELET COUNT (test code = PLT) 262 K/mm3 150-450 N MEAN PLATELET VOLUME (test code = MPV) 9.7 fL 6.7-11.0 N IMMATURE GRANULOCYTE % (test code = IG%) 11.1 % 0.0-5.0 H "The appearance of immature granulocytes (myelocytes,pro-myelocytes, meta-myelocytes) in the peripheral blood ofnon- individuals can indicate a response toinfection, inflammation, or other stimulus to the bonemarrow" NUCLEATED RBC % (test code = NRBC%) 0.0 % 0-0 N NEUTROPHIL # (test code = NT#) 7.32 K/mm3 1.8-7.7 N IMMATURE GRANULOCYTE # (test code = IG#) 1.28 x10 3/uL 0-0.03 H LYMPHOCYTE # (test code = LY#) 1.67 K/mm3 1.0-5.0 N MONOCYTE # (test code = MO#) 1.20 K/mm3 0-0.8 H EOSINOPHIL # (test code = EO#) 0.00 K/mm3 0.0-0.5 N BASOPHIL # (test code = BA#) 0.09 K/mm3 0.0-0.2 N NUCLEATED RBC # (test code = NRBC#) 0.00 K/mm3 0.0-0.1 N MANUAL DIFF REQUIRED (test code = MDIFF) YES STAIN ACCEPTABILITY (test code = STN ACCEPTABLE) TOTAL CELLS COUNTED (test code = TCC) #CELLS SEGMENTED NEUTROPHILS (test code = SEG) % 39-69 LYMPHOCYTE (test code = LYMPH) % 25-55 MONOCYTE (test code = MON) % 0-10 EOSINOPHIL (test code = EOS) % 0.0-5.0 CABOT RINGS (test code = CAB) MORPHOLOGY COMMENT (test code = MOC) PLATELET ESTIMATE (test code = PLTEST) PLATELET MORPHOLOGY (test code = PLTMORPH) CBC W/MANUAL [id number] 05:59:00* Test Item Value Reference Range Interpretation Comments WHITE BLOOD CELL (test code = WBC) 11.6 K/mm3 4.5-12.5 N RED BLOOD CELL (test code = RBC) 2.78 mill/mm3 4.0-5.8 L HEMOGLOBIN (test code = HGB) 7.8 gram/dL 13.0-17.5 L HEMATOCRIT (test code = HCT) 24.9 % 42.0-52.0 L MEAN CELL VOLUME (test code = MCV) 89.6 fL 80-98 N MEAN CELL HGB (test code = MCH) 28.1 picogram 27.0-33.0 N MEAN CELL HGB CONCETRATION (test code = MCHC) 31.3 gram/dL 33.0-36. 0 L RED CELL DISTRIBUTION WIDTH (test code = RDW) 20.0 % 11.6-16. 2 H RED CELL DISTRIBUTION WIDTH SD (test code = RDW-SD) 65.0 fL 37 .0-51.0 H PLATELET COUNT (test code = PLT) 262 K/mm3 150-450 N MEAN PLATELET VOLUME (test code = MPV) 9.7 fL 6.7-11.0 N IMMATURE GRANULOCYTE % (test code = IG%) 11.1 % 0.0-5.0 H "The appearance of immature granulocytes (myelocytes,pro-myelocytes, meta-myelocytes) in the peripheral blood ofnon- individuals can indicate a response toinfection, inflammation, or other stimulus to the bonemarrow" NUCLEATED RBC % (test code = NRBC%) 0.0 % 0-0 N NEUTROPHIL # (test code = NT#) 7.32 K/mm3 1.8-7.7 N IMMATURE GRANULOCYTE # (test code = IG#) 1.28 x10 3/uL 0-0.03 H LYMPHOCYTE # (test code = LY#) 1.67 K/mm3 1.0-5.0 N MONOCYTE # (test code = MO#) 1.20 K/mm3 0-0.8 H EOSINOPHIL # (test code = EO#) 0.00 K/mm3 0.0-0.5 N BASOPHIL # (test code = BA#) 0.09 K/mm3 0.0-0.2 N NUCLEATED RBC # (test code = NRBC#) 0.00 K/mm3 0.0-0.1 N MANUAL DIFF REQUIRED (test code = MDIFF) YES STAIN ACCEPTABILITY (test code = STN ACCEPTABLE) TOTAL CELLS COUNTED (test code = TCC) #CELLS SEGMENTED NEUTROPHILS (test code = SEG) % 39-69 LYMPHOCYTE (test code = LYMPH) % 25-55 MONOCYTE (test code = MON) % 0-10 EOSINOPHIL (test code = EOS) % 0.0-5.0 CABOT RINGS (test code = CAB) MORPHOLOGY COMMENT (test code = MOC) PLATELET ESTIMATE (test code = PLTEST) PLATELET MORPHOLOGY (test code = PLTMORPH) CBC W/MANUAL [id number] 05:59:00* Test Item Value Reference Range Interpretation Comments WHITE BLOOD CELL (test code = WBC) 11.6 K/mm3 4.5-12.5 N RED BLOOD CELL (test code = RBC) 2.78 mill/mm3 4.0-5.8 L HEMOGLOBIN (test code = HGB) 7.8 gram/dL 13.0-17.5 L HEMATOCRIT (test code = HCT) 24.9 % 42.0-52.0 L MEAN CELL VOLUME (test code = MCV) 89.6 fL 80-98 N MEAN CELL HGB (test code = MCH) 28.1 picogram 27.0-33.0 N MEAN CELL HGB CONCETRATION (test code = MCHC) 31.3 gram/dL 33.0-36. 0 L RED CELL DISTRIBUTION WIDTH (test code = RDW) 20.0 % 11.6-16. 2 H RED CELL DISTRIBUTION WIDTH SD (test code = RDW-SD) 65.0 fL 37 .0-51.0 H PLATELET COUNT (test code = PLT) 262 K/mm3 150-450 N MEAN PLATELET VOLUME (test code = MPV) 9.7 fL 6.7-11.0 N IMMATURE GRANULOCYTE % (test code = IG%) 11.1 % 0.0-5.0 H "The appearance of immature granulocytes (myelocytes,pro-myelocytes, meta-myelocytes) in the peripheral blood ofnon- individuals can indicate a response toinfection, inflammation, or other stimulus to the bonemarrow" NUCLEATED RBC % (test code = NRBC%) 0.0 % 0-0 N NEUTROPHIL # (test code = NT#) 7.32 K/mm3 1.8-7.7 N IMMATURE GRANULOCYTE # (test code = IG#) 1.28 x10 3/uL 0-0.03 H LYMPHOCYTE # (test code = LY#) 1.67 K/mm3 1.0-5.0 N MONOCYTE # (test code = MO#) 1.20 K/mm3 0-0.8 H EOSINOPHIL # (test code = EO#) 0.00 K/mm3 0.0-0.5 N BASOPHIL # (test code = BA#) 0.09 K/mm3 0.0-0.2 N NUCLEATED RBC # (test code = NRBC#) 0.00 K/mm3 0.0-0.1 N MANUAL DIFF REQUIRED (test code = MDIFF) YES STAIN ACCEPTABILITY (test code = STN ACCEPTABLE) TOTAL CELLS COUNTED (test code = TCC) #CELLS SEGMENTED NEUTROPHILS (test code = SEG) % 39-69 LYMPHOCYTE (test code = LYMPH) % 25-55 MONOCYTE (test code = MON) % 0-10 EOSINOPHIL (test code = EOS) % 0.0-5.0 MORPHOLOGY COMMENT (test code = MOC) PLATELET ESTIMATE (test code = PLTEST) PLATELET MORPHOLOGY (test code = PLTMORPH) CBC W/MANUAL [id number] 05:59:00* Test Item Value Reference Range Interpretation Comments WHITE BLOOD CELL (test code = WBC) 11.6 K/mm3 4.5-12.5 N RED BLOOD CELL (test code = RBC) 2.78 mill/mm3 4.0-5.8 L HEMOGLOBIN (test code = HGB) 7.8 gram/dL 13.0-17.5 L HEMATOCRIT (test code = HCT) 24.9 % 42.0-52.0 L MEAN CELL VOLUME (test code = MCV) 89.6 fL 80-98 N MEAN CELL HGB (test code = MCH) 28.1 picogram 27.0-33.0 N MEAN CELL HGB CONCETRATION (test code = MCHC) 31.3 gram/dL 33.0-36. 0 L RED CELL DISTRIBUTION WIDTH (test code = RDW) 20.0 % 11.6-16. 2 H RED CELL DISTRIBUTION WIDTH SD (test code = RDW-SD) 65.0 fL 37 .0-51.0 H PLATELET COUNT (test code = PLT) 262 K/mm3 150-450 N MEAN PLATELET VOLUME (test code = MPV) 9.7 fL 6.7-11.0 N IMMATURE GRANULOCYTE % (test code = IG%) 11.1 % 0.0-5.0 H "The appearance of immature granulocytes (myelocytes,pro-myelocytes, meta-myelocytes) in the peripheral blood ofnon- individuals can indicate a response toinfection, inflammation, or other stimulus to the bonemarrow" NUCLEATED RBC % (test code = NRBC%) 0.0 % 0-0 N NEUTROPHIL # (test code = NT#) 7.32 K/mm3 1.8-7.7 N IMMATURE GRANULOCYTE # (test code = IG#) 1.28 x10 3/uL 0-0.03 H LYMPHOCYTE # (test code = LY#) 1.67 K/mm3 1.0-5.0 N MONOCYTE # (test code = MO#) 1.20 K/mm3 0-0.8 H EOSINOPHIL # (test code = EO#) 0.00 K/mm3 0.0-0.5 N BASOPHIL # (test code = BA#) 0.09 K/mm3 0.0-0.2 N NUCLEATED RBC # (test code = NRBC#) 0.00 K/mm3 0.0-0.1 N MANUAL DIFF REQUIRED (test code = MDIFF) YES STAIN ACCEPTABILITY (test code = STN ACCEPTABLE) TOTAL CELLS COUNTED (test code = TCC) #CELLS SEGMENTED NEUTROPHILS (test code = SEG) % 39-69 LYMPHOCYTE (test code = LYMPH) % 25-55 MONOCYTE (test code = MON) % 0-10 MORPHOLOGY COMMENT (test code = MOC) PLATELET ESTIMATE (test code = PLTEST) PLATELET MORPHOLOGY (test code = PLTMORPH) CBC W/MANUAL [id number] 05:59:00* Test Item Value Reference Range Interpretation Comments WHITE BLOOD CELL (test code = WBC) 11.6 K/mm3 4.5-12.5 N RED BLOOD CELL (test code = RBC) 2.78 mill/mm3 4.0-5.8 L HEMOGLOBIN (test code = HGB) 7.8 gram/dL 13.0-17.5 L HEMATOCRIT (test code = HCT) 24.9 % 42.0-52.0 L MEAN CELL VOLUME (test code = MCV) 89.6 fL 80-98 N MEAN CELL HGB (test code = MCH) 28.1 picogram 27.0-33.0 N MEAN CELL HGB CONCETRATION (test code = MCHC) 31.3 gram/dL 33.0-36. 0 L RED CELL DISTRIBUTION WIDTH (test code = RDW) 20.0 % 11.6-16. 2 H RED CELL DISTRIBUTION WIDTH SD (test code = RDW-SD) 65.0 fL 37 .0-51.0 H PLATELET COUNT (test code = PLT) 262 K/mm3 150-450 N MEAN PLATELET VOLUME (test code = MPV) 9.7 fL 6.7-11.0 N IMMATURE GRANULOCYTE % (test code = IG%) 11.1 % 0.0-5.0 H "The appearance of immature granulocytes (myelocytes,pro-myelocytes, meta-myelocytes) in the peripheral blood ofnon- individuals can indicate a response toinfection, inflammation, or other stimulus to the bonemarrow" NUCLEATED RBC % (test code = NRBC%) 0.0 % 0-0 N NEUTROPHIL # (test code = NT#) 7.32 K/mm3 1.8-7.7 N IMMATURE GRANULOCYTE # (test code = IG#) 1.28 x10 3/uL 0-0.03 H LYMPHOCYTE # (test code = LY#) 1.67 K/mm3 1.0-5.0 N MONOCYTE # (test code = MO#) 1.20 K/mm3 0-0.8 H EOSINOPHIL # (test code = EO#) 0.00 K/mm3 0.0-0.5 N BASOPHIL # (test code = BA#) 0.09 K/mm3 0.0-0.2 N NUCLEATED RBC # (test code = NRBC#) 0.00 K/mm3 0.0-0.1 N MANUAL DIFF REQUIRED (test code = MDIFF) YES STAIN ACCEPTABILITY (test code = STN ACCEPTABLE) TOTAL CELLS COUNTED (test code = TCC) #CELLS SEGMENTED NEUTROPHILS (test code = SEG) % 39-69 LYMPHOCYTE (test code = LYMPH) % 25-55 MONOCYTE (test code = MON) % 0-10 EOSINOPHIL (test code = EOS) % 0.0-5.0 CABOT RINGS (test code = CAB) MORPHOLOGY COMMENT (test code = MOC) PLATELET ESTIMATE (test code = PLTEST) PLATELET MORPHOLOGY (test code = PLTMORPH) [id number] 05:47:00* Test Item Value Reference Range Interpretation Comments GLUBED (test code = GLUBED) 116 mg/dL 74-106 H Performed by certified sleeve presser operator at [facility] [id number] 20:35:00* Test Item Value Reference Range Interpretation Comments GLUBED (test code = GLUBED) 98 mg/dL 74-106 N Performed by certified sleeve presser operator at [facility] [id number] 17:51:00* Test Item Value Reference Range Interpretation Comments GLUBED (test code = GLUBED) 97 mg/dL 74-106 N Performed by certified sleeve presser operator at [facility] [id number] 11:00:00* Test Item Value Reference Range Interpretation Comments GLUBED (test code = GLUBED) 83 mg/dL 74-106 N Performed by certified sleeve presser operator at [facility] CBC W/MANUAL [id number] 07:10:00* Test Item Value Reference Range Interpretation Comments WHITE BLOOD CELL (test code = WBC) 13.6 K/mm3 4.5-12.5 H RED BLOOD CELL (test code = RBC) 2.73 mill/mm3 4.0-5.8 L HEMOGLOBIN (test code = HGB) 7.7 gram/dL 13.0-17.5 L HEMATOCRIT (test code = HCT) 24.5 % 42.0-52.0 L MEAN CELL VOLUME (test code = MCV) 89.7 fL 80-98 N MEAN CELL HGB (test code = MCH) 28.2 picogram 27.0-33.0 N MEAN CELL HGB CONCETRATION (test code = MCHC) 31.4 gram/dL 33.0-36. 0 L RED CELL DISTRIBUTION WIDTH (test code = RDW) 19.9 % 11.6-16. 2 H RED CELL DISTRIBUTION WIDTH SD (test code = RDW-SD) 64.1 fL 37 .0-51.0 H PLATELET COUNT (test code = PLT) 273 K/mm3 150-450 N MEAN PLATELET VOLUME (test code = MPV) 9.7 fL 6.7-11.0 N IMMATURE GRANULOCYTE % (test code = IG%) 16.2 % 0.0-5.0 H "The appearance of immature granulocytes (myelocytes,pro-myelocytes, meta-myelocytes) in the peripheral blood ofnon- individuals can indicate a response toinfection, inflammation, or other stimulus to the bonem[place]" NUCLEATED RBC % (test code = NRBC%) 0.1 % 0-0 H NEUTROPHIL # (test code = NT#) 8.38 K/mm3 1.8-7.7 H IMMATURE GRANULOCYTE # (test code = IG#) 2.20 x10 3/uL 0-0.03 H LYMPHOCYTE # (test code = LY#) 1.66 K/mm3 1.0-5.0 N MONOCYTE # (test code = MO#) 1.34 K/mm3 0-0.8 H EOSINOPHIL # (test code = EO#) 0.01 K/mm3 0.0-0.5 N BASOPHIL # (test code = BA#) 0.03 K/mm3 0.0-0.2 N NUCLEATED RBC # (test code = NRBC#) 0.02 K/mm3 0.0-0.1 N MANUAL DIFF REQUIRED (test code = MDIFF) YES STAIN ACCEPTABILITY (test code = STN ACCEPTABLE) STAIN ACCEPTABLE TOTAL CELLS COUNTED (test code = TCC) 115 #CELLS SEGMENTED NEUTROPHILS (test code = SEG) 62.6 % 39-69 N BAND NEUTROPHIL (test code = BAND) 6.9 % 0-10 N LYMPHOCYTE (test code = LYMPH) 9.6 % 25-55 L REACTIVE LYMPH (test code = RELYMPH) 0 % MONOCYTE (test code = MON) 8.7 % 0-10 N EOSINOPHIL (test code = EOS) 0 % 0.0-5.0 N BASOPHIL (test code = BASO) 0.9 % 0-1.0 N METAMYELOCYTE (test code = META) 6.1 % 0-0 H MYELOCYTE (test code = MYELO) 5.2 % 0.0-0.0 H PROMYELOCYTE (test code = PROM) 0 % 0-0 N POLYCHROMASIA (test code = POLC) 1+ POIKILOCYTOSIS (test code = POIK) 1+ MORPHOLOGY COMMENT (test code = MOC) NORMAL PLATELET ESTIMATE (test code = PLTEST) ADEQUATE PLATELET MORPHOLOGY (test code = PLTMORPH) SIZE VARIABLE IMMATURE FORMS (test code = IMMAT) 0 % 0-0 N COMPREHENSIVE METABOLIC [id number] 06:25:00* Test Item Value Reference Range Interpretation Comments SODIUM (test code = NA) 143 mmol/L 136-145 N POTASSIUM (test code = K) 3.7 mmol/L 3.5-5.1 N CHLORIDE (test code = CL) 107.0 mmol/L 98-107 N CARBON DIOXIDE (test code = CO2) 29.0 mmol/L 21-32 N ANION GAP (test code = GAP) 10.7 10-20 N GLUCOSE (test code = GLU) 108 mg/dL 74-106 H BLOOD UREA NITROGEN (test code = BUN) 7 mg/dL 7-18 N GLOMERULAR FILTRATION RATE (test code = GFR) > 60 mL/min >=60 Estimated GFR by using Modified MDRD formula.Chronic kidney disease is defined as either kidney damageor GFR <60 mL/min/1.73 m2 for >3 months. CREATININE (test code = CREAT) 0.70 mg/dL 0.7-1.3 N BUN/CREATININE RATIO (test code = BUN/CREA) 10.7 10-20 N TOTAL PROTEIN (test code = PROT) 5.3 gram/dL 6.4-8.2 L ALBUMIN (test code = ALB) 2.2 g/dL 3.4-5.0 L GLOBULIN (test code = GLOB) 3.1 gram/dL 2.7-4.2 N ALBUMIN/GLOBULIN RATIO (test code = A/G) 0.7 0.75-1.50 L CALCIUM (test code = CA) 7.9 mg/dL 8.5-10.1 L BILIRUBIN TOTAL (test code = BILT) 0.20 mg/dL 0.0-1.0 N SGOT/AST (test code = AST) 11 IUnit/L 15-37 L SGPT/ALT (test code = ALT) < 6 IUnit/L 12-78 L ALKALINE PHOSPHATASE TOTAL (test code = ALKP) 57 IUnit/L 45-117 N Note change in reference range due to change in reagent. [id number] 06:25:00* Test Item Value Reference Range Interpretation Comments PHOSPHORUS (test code = PHOS) 4.6 mg/dL 2.5-4.9 N [id number] 06:25:00* Test Item Value Reference Range Interpretation Comments MAGNESIUM (test code = MAG) 1.7 mg/dL 1.8-2.4 L CBC W/MANUAL [id number] 05:55:00* Test Item Value Reference Range Interpretation Comments WHITE BLOOD CELL (test code = WBC) 13.6 K/mm3 4.5-12.5 H RED BLOOD CELL (test code = RBC) 2.73 mill/mm3 4.0-5.8 L HEMOGLOBIN (test code = HGB) 7.7 gram/dL 13.0-17.5 L HEMATOCRIT (test code = HCT) 24.5 % 42.0-52.0 L MEAN CELL VOLUME (test code = MCV) 89.7 fL 80-98 N MEAN CELL HGB (test code = MCH) 28.2 picogram 27.0-33.0 N MEAN CELL HGB CONCETRATION (test code = MCHC) 31.4 gram/dL 33.0-36. 0 L RED CELL DISTRIBUTION WIDTH (test code = RDW) 19.9 % 11.6-16. 2 H RED CELL DISTRIBUTION WIDTH SD (test code = RDW-SD) 64.1 fL 37 .0-51.0 H PLATELET COUNT (test code = PLT) 273 K/mm3 150-450 N MEAN PLATELET VOLUME (test code = MPV) 9.7 fL 6.7-11.0 N IMMATURE GRANULOCYTE % (test code = IG%) 16.2 % 0.0-5.0 H "The appearance of immature granulocytes (myelocytes,pro-myelocytes, meta-myelocytes) in the peripheral blood ofnon- individuals can indicate a response toinfection, inflammation, or other stimulus to the bonemarrow" NUCLEATED RBC % (test code = NRBC%) 0.1 % 0-0 H NEUTROPHIL # (test code = NT#) 8.38 K/mm3 1.8-7.7 H IMMATURE GRANULOCYTE # (test code = IG#) 2.20 x10 3/uL 0-0.03 H LYMPHOCYTE # (test code = LY#) 1.66 K/mm3 1.0-5.0 N MONOCYTE # (test code = MO#) 1.34 K/mm3 0-0.8 H EOSINOPHIL # (test code = EO#) 0.01 K/mm3 0.0-0.5 N BASOPHIL # (test code = BA#) 0.03 K/mm3 0.0-0.2 N NUCLEATED RBC # (test code = NRBC#) 0.02 K/mm3 0.0-0.1 N MANUAL DIFF REQUIRED (test code = MDIFF) YES STAIN ACCEPTABILITY (test code = STN ACCEPTABLE) TOTAL CELLS COUNTED (test code = TCC) #CELLS SEGMENTED NEUTROPHILS (test code = SEG) % 39-69 LYMPHOCYTE (test code = LYMPH) % 25-55 MONOCYTE (test code = MON) % 0-10 EOSINOPHIL (test code = EOS) % 0.0-5.0 CABOT RINGS (test code = CAB) MORPHOLOGY COMMENT (test code = MOC) PLATELET ESTIMATE (test code = PLTEST) PLATELET MORPHOLOGY (test code = PLTMORPH) CBC W/MANUAL [id number] 05:55:00* Test Item Value Reference Range Interpretation Comments WHITE BLOOD CELL (test code = WBC) 13.6 K/mm3 4.5-12.5 H RED BLOOD CELL (test code = RBC) 2.73 mill/mm3 4.0-5.8 L HEMOGLOBIN (test code = HGB) 7.7 gram/dL 13.0-17.5 L HEMATOCRIT (test code = HCT) 24.5 % 42.0-52.0 L MEAN CELL VOLUME (test code = MCV) 89.7 fL 80-98 N MEAN CELL HGB (test code = MCH) 28.2 picogram 27.0-33.0 N MEAN CELL HGB CONCETRATION (test code = MCHC) 31.4 gram/dL 33.0-36. 0 L RED CELL DISTRIBUTION WIDTH (test code = RDW) 19.9 % 11.6-16. 2 H RED CELL DISTRIBUTION WIDTH SD (test code = RDW-SD) 64.1 fL 37 .0-51.0 H PLATELET COUNT (test code = PLT) 273 K/mm3 150-450 N MEAN PLATELET VOLUME (test code = MPV) 9.7 fL 6.7-11.0 N IMMATURE GRANULOCYTE % (test code = IG%) 16.2 % 0.0-5.0 H "The appearance of immature granulocytes (myelocytes,pro-myelocytes, meta-myelocytes) in the peripheral blood ofnon- individuals can indicate a response toinfection, inflammation, or other stimulus to the bonemarrow" NUCLEATED RBC % (test code = NRBC%) 0.1 % 0-0 H NEUTROPHIL # (test code = NT#) 8.38 K/mm3 1.8-7.7 H IMMATURE GRANULOCYTE # (test code = IG#) 2.20 x10 3/uL 0-0.03 H LYMPHOCYTE # (test code = LY#) 1.66 K/mm3 1.0-5.0 N MONOCYTE # (test code = MO#) 1.34 K/mm3 0-0.8 H EOSINOPHIL # (test code = EO#) 0.01 K/mm3 0.0-0.5 N BASOPHIL # (test code = BA#) 0.03 K/mm3 0.0-0.2 N NUCLEATED RBC # (test code = NRBC#) 0.02 K/mm3 0.0-0.1 N MANUAL DIFF REQUIRED (test code = MDIFF) YES STAIN ACCEPTABILITY (test code = STN ACCEPTABLE) TOTAL CELLS COUNTED (test code = TCC) #CELLS SEGMENTED NEUTROPHILS (test code = SEG) % 39-69 LYMPHOCYTE (test code = LYMPH) % 25-55 MONOCYTE (test code = MON) % 0-10 EOSINOPHIL (test code = EOS) % 0.0-5.0 CABOT RINGS (test code = CAB) MORPHOLOGY COMMENT (test code = MOC) PLATELET ESTIMATE (test code = PLTEST) PLATELET MORPHOLOGY (test code = PLTMORPH) CBC W/MANUAL [id number] 05:55:00* Test Item Value Reference Range Interpretation Comments WHITE BLOOD CELL (test code = WBC) 13.6 K/mm3 4.5-12.5 H RED BLOOD CELL (test code = RBC) 2.73 mill/mm3 4.0-5.8 L HEMOGLOBIN (test code = HGB) 7.7 gram/dL 13.0-17.5 L HEMATOCRIT (test code = HCT) 24.5 % 42.0-52.0 L MEAN CELL VOLUME (test code = MCV) 89.7 fL 80-98 N MEAN CELL HGB (test code = MCH) 28.2 picogram 27.0-33.0 N MEAN CELL HGB CONCETRATION (test code = MCHC) 31.4 gram/dL 33.0-36. 0 L RED CELL DISTRIBUTION WIDTH (test code = RDW) 19.9 % 11.6-16. 2 H RED CELL DISTRIBUTION WIDTH SD (test code = RDW-SD) 64.1 fL 37 .0-51.0 H PLATELET COUNT (test code = PLT) 273 K/mm3 150-450 N MEAN PLATELET VOLUME (test code = MPV) 9.7 fL 6.7-11.0 N IMMATURE GRANULOCYTE % (test code = IG%) 16.2 % 0.0-5.0 H "The appearance of immature granulocytes (myelocytes,pro-myelocytes, meta-myelocytes) in the peripheral blood ofnon- individuals can indicate a response toinfection, inflammation, or other stimulus to the bonemarrow" NUCLEATED RBC % (test code = NRBC%) 0.1 % 0-0 H NEUTROPHIL # (test code = NT#) 8.38 K/mm3 1.8-7.7 H IMMATURE GRANULOCYTE # (test code = IG#) 2.20 x10 3/uL 0-0.03 H LYMPHOCYTE # (test code = LY#) 1.66 K/mm3 1.0-5.0 N MONOCYTE # (test code = MO#) 1.34 K/mm3 0-0.8 H EOSINOPHIL # (test code = EO#) 0.01 K/mm3 0.0-0.5 N BASOPHIL # (test code = BA#) 0.03 K/mm3 0.0-0.2 N NUCLEATED RBC # (test code = NRBC#) 0.02 K/mm3 0.0-0.1 N MANUAL DIFF REQUIRED (test code = MDIFF) YES STAIN ACCEPTABILITY (test code = STN ACCEPTABLE) TOTAL CELLS COUNTED (test code = TCC) #CELLS SEGMENTED NEUTROPHILS (test code = SEG) % 39-69 LYMPHOCYTE (test code = LYMPH) % 25-55 MONOCYTE (test code = MON) % 0-10 EOSINOPHIL (test code = EOS) % 0.0-5.0 MORPHOLOGY COMMENT (test code = MOC) PLATELET ESTIMATE (test code = PLTEST) PLATELET MORPHOLOGY (test code = PLTMORPH) CBC W/MANUAL [id number] 05:55:00* Test Item Value Reference Range Interpretation Comments WHITE BLOOD CELL (test code = WBC) 13.6 K/mm3 4.5-12.5 H RED BLOOD CELL (test code = RBC) 2.73 mill/mm3 4.0-5.8 L HEMOGLOBIN (test code = HGB) 7.7 gram/dL 13.0-17.5 L HEMATOCRIT (test code = HCT) 24.5 % 42.0-52.0 L MEAN CELL VOLUME (test code = MCV) 89.7 fL 80-98 N MEAN CELL HGB (test code = MCH) 28.2 picogram 27.0-33.0 N MEAN CELL HGB CONCETRATION (test code = MCHC) 31.4 gram/dL 33.0-36. 0 L RED CELL DISTRIBUTION WIDTH (test code = RDW) 19.9 % 11.6-16. 2 H RED CELL DISTRIBUTION WIDTH SD (test code = RDW-SD) 64.1 fL 37 .0-51.0 H PLATELET COUNT (test code = PLT) 273 K/mm3 150-450 N MEAN PLATELET VOLUME (test code = MPV) 9.7 fL 6.7-11.0 N IMMATURE GRANULOCYTE % (test code = IG%) 16.2 % 0.0-5.0 H "The appearance of immature granulocytes (myelocytes,pro-myelocytes, meta-myelocytes) in the peripheral blood ofnon- individuals can indicate a response toinfection, inflammation, or other stimulus to the bonemarrow" NUCLEATED RBC % (test code = NRBC%) 0.1 % 0-0 H NEUTROPHIL # (test code = NT#) 8.38 K/mm3 1.8-7.7 H IMMATURE GRANULOCYTE # (test code = IG#) 2.20 x10 3/uL 0-0.03 H LYMPHOCYTE # (test code = LY#) 1.66 K/mm3 1.0-5.0 N MONOCYTE # (test code = MO#) 1.34 K/mm3 0-0.8 H EOSINOPHIL # (test code = EO#) 0.01 K/mm3 0.0-0.5 N BASOPHIL # (test code = BA#) 0.03 K/mm3 0.0-0.2 N NUCLEATED RBC # (test code = NRBC#) 0.02 K/mm3 0.0-0.1 N MANUAL DIFF REQUIRED (test code = MDIFF) YES STAIN ACCEPTABILITY (test code = STN ACCEPTABLE) TOTAL CELLS COUNTED (test code = TCC) #CELLS SEGMENTED NEUTROPHILS (test code = SEG) % 39-69 LYMPHOCYTE (test code = LYMPH) % 25-55 MONOCYTE (test code = MON) % 0-10 MORPHOLOGY COMMENT (test code = MOC) PLATELET ESTIMATE (test code = PLTEST) PLATELET MORPHOLOGY (test code = PLTMORPH) CBC W/MANUAL [id number] 05:55:00* Test Item Value Reference Range Interpretation Comments WHITE BLOOD CELL (test code = WBC) 13.6 K/mm3 4.5-12.5 H RED BLOOD CELL (test code = RBC) 2.73 mill/mm3 4.0-5.8 L HEMOGLOBIN (test code = HGB) 7.7 gram/dL 13.0-17.5 L HEMATOCRIT (test code = HCT) 24.5 % 42.0-52.0 L MEAN CELL VOLUME (test code = MCV) 89.7 fL 80-98 N MEAN CELL HGB (test code = MCH) 28.2 picogram 27.0-33.0 N MEAN CELL HGB CONCETRATION (test code = MCHC) 31.4 gram/dL 33.0-36. 0 L RED CELL DISTRIBUTION WIDTH (test code = RDW) 19.9 % 11.6-16. 2 H RED CELL DISTRIBUTION WIDTH SD (test code = RDW-SD) 64.1 fL 37 .0-51.0 H PLATELET COUNT (test code = PLT) 273 K/mm3 150-450 N MEAN PLATELET VOLUME (test code = MPV) 9.7 fL 6.7-11.0 N IMMATURE GRANULOCYTE % (test code = IG%) 16.2 % 0.0-5.0 H "The appearance of immature granulocytes (myelocytes,pro-myelocytes, meta-myelocytes) in the peripheral blood ofnon- individuals can indicate a response toinfection, inflammation, or other stimulus to the bonemarrow" NUCLEATED RBC % (test code = NRBC%) 0.1 % 0-0 H NEUTROPHIL # (test code = NT#) 8.38 K/mm3 1.8-7.7 H IMMATURE GRANULOCYTE # (test code = IG#) 2.20 x10 3/uL 0-0.03 H LYMPHOCYTE # (test code = LY#) 1.66 K/mm3 1.0-5.0 N MONOCYTE # (test code = MO#) 1.34 K/mm3 0-0.8 H EOSINOPHIL # (test code = EO#) 0.01 K/mm3 0.0-0.5 N BASOPHIL # (test code = BA#) 0.03 K/mm3 0.0-0.2 N NUCLEATED RBC # (test code = NRBC#) 0.02 K/mm3 0.0-0.1 N MANUAL DIFF REQUIRED (test code = MDIFF) YES STAIN ACCEPTABILITY (test code = STN ACCEPTABLE) TOTAL CELLS COUNTED (test code = TCC) #CELLS SEGMENTED NEUTROPHILS (test code = SEG) % 39-69 LYMPHOCYTE (test code = LYMPH) % 25-55 MONOCYTE (test code = MON) % 0-10 EOSINOPHIL (test code = EOS) % 0.0-5.0 CABOT RINGS (test code = CAB) MORPHOLOGY COMMENT (test code = MOC) PLATELET ESTIMATE (test code = PLTEST) PLATELET MORPHOLOGY (test code = PLTMORPH) [id number] 17:57:00* Test Item Value Reference Range Interpretation Comments GLUBED (test code = GLUBED) 110 mg/dL 74-106 H Performed by certified sleeve presser operator at [facility] [id number] 17:45:00* Test Item Value Reference Range Interpretation Comments GLUBED (test code = GLUBED) 110 mg/dL 74-106 H Performed by certified sleeve presser operator at [facility] [id number] 12:21:00* Test Item Value Reference Range Interpretation Comments GLUBED (test code = GLUBED) 104 mg/dL 74-106 N Performed by certified sleeve presser operator at [facility] COMPREHENSIVE METABOLIC [id number] 06:19:00* Test Item Value Reference Range Interpretation Comments SODIUM (test code = NA) 143 mmol/L 136-145 N POTASSIUM (test code = K) 3.7 mmol/L 3.5-5.1 N CHLORIDE (test code = CL) 111.0 mmol/L 98-107 H CARBON DIOXIDE (test code = CO2) 28.0 mmol/L 21-32 N ANION GAP (test code = GAP) 7.7 10-20 L GLUCOSE (test code = GLU) 81 mg/dL 74-106 N BLOOD UREA NITROGEN (test code = BUN) 6 mg/dL 7-18 L GLOMERULAR FILTRATION RATE (test code = GFR) > 60 mL/min >=60 Estimated GFR by using Modified MDRD formula.Chronic kidney disease is defined as either kidney damageor GFR <60 mL/min/1.73 m2 for >3 months. CREATININE (test code = CREAT) 0.60 mg/dL 0.7-1.3 L BUN/CREATININE RATIO (test code = BUN/CREA) 9.6 10-20 L TOTAL PROTEIN (test code = PROT) 5.5 gram/dL 6.4-8.2 L ALBUMIN (test code = ALB) 2.1 g/dL 3.4-5.0 L GLOBULIN (test code = GLOB) 3.4 gram/dL 2.7-4.2 N ALBUMIN/GLOBULIN RATIO (test code = A/G) 0.6 0.75-1.50 L CALCIUM (test code = CA) 8.0 mg/dL 8.5-10.1 L BILIRUBIN TOTAL (test code = BILT) 0.20 mg/dL 0.0-1.0 N SGOT/AST (test code = AST) 19 IUnit/L 15-37 N SGPT/ALT (test code = ALT) < 6 IUnit/L 12-78 L ALKALINE PHOSPHATASE TOTAL (test code = ALKP) 71 IUnit/L 45-117 N Note change in reference range due to change in reagent. Are CHOL,TRIG & HDL ordered? [id number] 06:19:00* Test Item Value Reference Range Interpretation Comments PHOSPHORUS (test code = PHOS) 3.7 mg/dL 2.5-4.9 N Are CHOL,TRIG & HDL ordered? [id number] 06:19:00* Test Item Value Reference Range Interpretation Comments TRIGLYCERIDES (test code = TRIG) 150 mg/dL 20-150 N Are CHOL,TRIG & HDL ordered? [id number] 06:19:00* Test Item Value Reference Range Interpretation Comments MAGNESIUM (test code = MAG) 2.0 mg/dL 1.8-2.4 N Are CHOL,TRIG & HDL ordered? NOCOMPREHENSIVE METABOLIC [id number] 06:11:00 * Test Item Value Reference Range Interpretation Comments SODIUM (test code = NA) 143 mmol/L 136-145 N POTASSIUM (test code = K) 3.7 mmol/L 3.5-5.1 N CHLORIDE (test code = CL) 111.0 mmol/L 98-107 H CARBON DIOXIDE (test code = CO2) mmol/L 21-32 ANION GAP (test code = GAP) 10-20 GLUCOSE (test code = GLU) mg/dL 74-106 BLOOD UREA NITROGEN (test code = BUN) mg/dL 7-18 GLOMERULAR FILTRATION RATE (test code = GFR) mL/min >=60 CREATININE (test code = CREAT) mg/dL 0.7-1.3 BUN/CREATININE RATIO (test code = BUN/CREA) 10-20 TOTAL PROTEIN (test code = PROT) gram/dL 6.4-8.2 ALBUMIN (test code = ALB) g/dL 3.4-5.0 GLOBULIN (test code = GLOB) gram/dL 2.7-4.2 ALBUMIN/GLOBULIN RATIO (test code = A/G) 0.75-1.50 CALCIUM (test code = CA) mg/dL 8.5-10.1 BILIRUBIN TOTAL (test code = BILT) mg/dL 0.0-1.0 SGOT/AST (test code = AST) IUnit/L 15-37 SGPT/ALT (test code = ALT) IUnit/L 12-78 ALKALINE PHOSPHATASE TOTAL (test code = ALKP) IUnit/L 45-117 Are CHOL,TRIG & HDL ordered? [id number] 06:11:00* Test Item Value Reference Range Interpretation Comments PHOSPHORUS (test code = PHOS) mg/dL 2.5-4.9 Are CHOL,TRIG & HDL ordered? [id number] 06:11:00* Test Item Value Reference Range Interpretation Comments TRIGLYCERIDES (test code = TRIG) mg/dL 20-150 Are CHOL,TRIG & HDL ordered? [id number] 06:11:00* Test Item Value Reference Range Interpretation Comments MAGNESIUM (test code = MAG) mg/dL 1.8-2.4 Are CHOL,TRIG & HDL ordered? [id number] 05:54:00* Test Item Value Reference Range Interpretation Comments GLUBED (test code = GLUBED) 79 mg/dL 74-106 N Performed by certified sleeve presser operator at [facility] [id number] 00:41:00* Test Item Value Reference Range Interpretation Comments GLUBED (test code = GLUBED) 86 mg/dL 74-106 N Performed by certified sleeve presser operator at [facility] [id number] 18:15:00* Test Item Value Reference Range Interpretation Comments GLUBED (test code = GLUBED) 67 mg/dL 74-106 L Performed by certified sleeve presser operator at [facility] [id number] 12:57:00* Test Item Value Reference Range Interpretation Comments GLUBED (test code = GLUBED) 74 mg/dL 74-106 N Performed by certified sleeve presser operator at [facility] CBC W/MANUAL [id number] 06:43:00* Test Item Value Reference Range Interpretation Comments WHITE BLOOD CELL (test code = WBC) 19.7 K/mm3 4.5-12.5 H RED BLOOD CELL (test code = RBC) 2.87 mill/mm3 4.0-5.8 L HEMOGLOBIN (test code = HGB) 8.0 gram/dL 13.0-17.5 L HEMATOCRIT (test code = HCT) 25.4 % 42.0-52.0 L MEAN CELL VOLUME (test code = MCV) 88.5 fL 80-98 N MEAN CELL HGB (test code = MCH) 27.9 picogram 27.0-33.0 N MEAN CELL HGB CONCETRATION (test code = MCHC) 31.5 gram/dL 33.0-36. 0 L RED CELL DISTRIBUTION WIDTH (test code = RDW) 19.7 % 11.6-16. 2 H RED CELL DISTRIBUTION WIDTH SD (test code = RDW-SD) 63.8 fL 37 .0-51.0 H PLATELET COUNT (test code = PLT) 331 K/mm3 150-450 N MEAN PLATELET VOLUME (test code = MPV) 10.1 fL 6.7-11.0 N IMMATURE GRANULOCYTE % (test code = IG%) 36.2 % 0.0-5.0 H "The appearance of immature granulocytes (myelocytes,pro-myelocytes, meta-myelocytes) in the peripheral blood ofnon- individuals can indicate a response toinfection, inflammation, or other stimulus to the bonemarrow" NUCLEATED RBC % (test code = NRBC%) 0.2 % 0-0 H NEUTROPHIL # (test code = NT#) 9.00 K/mm3 1.8-7.7 H IMMATURE GRANULOCYTE # (test code = IG#) 7.13 x10 3/uL 0-0.03 H LYMPHOCYTE # (test code = LY#) 2.12 K/mm3 1.0-5.0 N MONOCYTE # (test code = MO#) 1.33 K/mm3 0-0.8 H EOSINOPHIL # (test code = EO#) 0.03 K/mm3 0.0-0.5 N BASOPHIL # (test code = BA#) 0.06 K/mm3 0.0-0.2 N NUCLEATED RBC # (test code = NRBC#) 0.03 K/mm3 0.0-0.1 N MANUAL DIFF REQUIRED (test code = MDIFF) YES STAIN ACCEPTABILITY (test code = STN ACCEPTABLE) STAIN ACCEPTABLE TOTAL CELLS COUNTED (test code = TCC) 115 #CELLS SEGMENTED NEUTROPHILS (test code = SEG) 60.0 % 39-69 N BAND NEUTROPHIL (test code = BAND) 9.6 % 0-10 N LYMPHOCYTE (test code = LYMPH) 19.1 % 25-55 L REACTIVE LYMPH (test code = RELYMPH) 6.1 % MONOCYTE (test code = MON) 4.3 % 0-10 N EOSINOPHIL (test code = EOS) 0 % 0.0-5.0 N BASOPHIL (test code = BASO) 0.9 % 0-1.0 N METAMYELOCYTE (test code = META) 0 % 0-0 N MYELOCYTE (test code = MYELO) 0 % 0.0-0.0 N PROMYELOCYTE (test code = PROM) 0 % 0-0 N POIKILOCYTOSIS (test code = POIK) 1+ ANISOCYTOSIS (test code = ANISO) 1+ PLATELET ESTIMATE (test code = PLTEST) ADEQUATE PLATELET MORPHOLOGY (test code = PLTMORPH) NORMAL IMMATURE FORMS (test code = IMMAT) 0 % 0-0 N [id number] 05:56:00* Test Item Value Reference Range Interpretation Comments GLUBED (test code = GLUBED) 80 mg/dL 74-106 N Performed by certified sleeve presser operator at [facility] [id number] 05:49:00* Test Item Value Reference Range Interpretation Comments PHOSPHORUS (test code = PHOS) 3.5 mg/dL 2.5-4.9 N CBC W/MANUAL [id number] 05:08:00* Test Item Value Reference Range Interpretation Comments WHITE BLOOD CELL (test code = WBC) 19.7 K/mm3 4.5-12.5 H RED BLOOD CELL (test code = RBC) 2.87 mill/mm3 4.0-5.8 L HEMOGLOBIN (test code = HGB) 8.0 gram/dL 13.0-17.5 L HEMATOCRIT (test code = HCT) 25.4 % 42.0-52.0 L MEAN CELL VOLUME (test code = MCV) 88.5 fL 80-98 N MEAN CELL HGB (test code = MCH) 27.9 picogram 27.0-33.0 N MEAN CELL HGB CONCETRATION (test code = MCHC) 31.5 gram/dL 33.0-36. 0 L RED CELL DISTRIBUTION WIDTH (test code = RDW) 19.7 % 11.6-16. 2 H RED CELL DISTRIBUTION WIDTH SD (test code = RDW-SD) 63.8 fL 37 .0-51.0 H PLATELET COUNT (test code = PLT) 331 K/mm3 150-450 N MEAN PLATELET VOLUME (test code = MPV) 10.1 fL 6.7-11.0 N IMMATURE GRANULOCYTE % (test code = IG%) 36.2 % 0.0-5.0 H "The appearance of immature granulocytes (myelocytes,pro-myelocytes, meta-myelocytes) in the peripheral blood ofnon- individuals can indicate a response toinfection, inflammation, or other stimulus to the bonemarrow" NUCLEATED RBC % (test code = NRBC%) 0.2 % 0-0 H NEUTROPHIL # (test code = NT#) 9.00 K/mm3 1.8-7.7 H IMMATURE GRANULOCYTE # (test code = IG#) 7.13 x10 3/uL 0-0.03 H LYMPHOCYTE # (test code = LY#) 2.12 K/mm3 1.0-5.0 N MONOCYTE # (test code = MO#) 1.33 K/mm3 0-0.8 H EOSINOPHIL # (test code = EO#) 0.03 K/mm3 0.0-0.5 N BASOPHIL # (test code = BA#) 0.06 K/mm3 0.0-0.2 N NUCLEATED RBC # (test code = NRBC#) 0.03 K/mm3 0.0-0.1 N MANUAL DIFF REQUIRED (test code = MDIFF) YES STAIN ACCEPTABILITY (test code = STN ACCEPTABLE) TOTAL CELLS COUNTED (test code = TCC) #CELLS SEGMENTED NEUTROPHILS (test code = SEG) % 39-69 LYMPHOCYTE (test code = LYMPH) % 25-55 MONOCYTE (test code = MON) % 0-10 EOSINOPHIL (test code = EOS) % 0.0-5.0 CABOT RINGS (test code = CAB) MORPHOLOGY COMMENT (test code = MOC) PLATELET ESTIMATE (test code = PLTEST) PLATELET MORPHOLOGY (test code = PLTMORPH) CBC W/MANUAL [id number] 05:08:00* Test Item Value Reference Range Interpretation Comments WHITE BLOOD CELL (test code = WBC) 19.7 K/mm3 4.5-12.5 H RED BLOOD CELL (test code = RBC) 2.87 mill/mm3 4.0-5.8 L HEMOGLOBIN (test code = HGB) 8.0 gram/dL 13.0-17.5 L HEMATOCRIT (test code = HCT) 25.4 % 42.0-52.0 L MEAN CELL VOLUME (test code = MCV) 88.5 fL 80-98 N MEAN CELL HGB (test code = MCH) 27.9 picogram 27.0-33.0 N MEAN CELL HGB CONCETRATION (test code = MCHC) 31.5 gram/dL 33.0-36. 0 L RED CELL DISTRIBUTION WIDTH (test code = RDW) 19.7 % 11.6-16. 2 H RED CELL DISTRIBUTION WIDTH SD (test code = RDW-SD) 63.8 fL 37 .0-51.0 H PLATELET COUNT (test code = PLT) 331 K/mm3 150-450 N MEAN PLATELET VOLUME (test code = MPV) 10.1 fL 6.7-11.0 N IMMATURE GRANULOCYTE % (test code = IG%) 36.2 % 0.0-5.0 H "The appearance of immature granulocytes (myelocytes,pro-myelocytes, meta-myelocytes) in the peripheral blood ofnon- individuals can indicate a response toinfection, inflammation, or other stimulus to the bonemarrow" NUCLEATED RBC % (test code = NRBC%) 0.2 % 0-0 H NEUTROPHIL # (test code = NT#) 9.00 K/mm3 1.8-7.7 H IMMATURE GRANULOCYTE # (test code = IG#) 7.13 x10 3/uL 0-0.03 H LYMPHOCYTE # (test code = LY#) 2.12 K/mm3 1.0-5.0 N MONOCYTE # (test code = MO#) 1.33 K/mm3 0-0.8 H EOSINOPHIL # (test code = EO#) 0.03 K/mm3 0.0-0.5 N BASOPHIL # (test code = BA#) 0.06 K/mm3 0.0-0.2 N NUCLEATED RBC # (test code = NRBC#) 0.03 K/mm3 0.0-0.1 N MANUAL DIFF REQUIRED (test code = MDIFF) YES STAIN ACCEPTABILITY (test code = STN ACCEPTABLE) TOTAL CELLS COUNTED (test code = TCC) #CELLS SEGMENTED NEUTROPHILS (test code = SEG) % 39-69 LYMPHOCYTE (test code = LYMPH) % 25-55 MONOCYTE (test code = MON) % 0-10 EOSINOPHIL (test code = EOS) % 0.0-5.0 CABOT RINGS (test code = CAB) MORPHOLOGY COMMENT (test code = MOC) PLATELET ESTIMATE (test code = PLTEST) PLATELET MORPHOLOGY (test code = PLTMORPH) CBC W/MANUAL [id number] 05:08:00* Test Item Value Reference Range Interpretation Comments WHITE BLOOD CELL (test code = WBC) 19.7 K/mm3 4.5-12.5 H RED BLOOD CELL (test code = RBC) 2.87 mill/mm3 4.0-5.8 L HEMOGLOBIN (test code = HGB) 8.0 gram/dL 13.0-17.5 L HEMATOCRIT (test code = HCT) 25.4 % 42.0-52.0 L MEAN CELL VOLUME (test code = MCV) 88.5 fL 80-98 N MEAN CELL HGB (test code = MCH) 27.9 picogram 27.0-33.0 N MEAN CELL HGB CONCETRATION (test code = MCHC) 31.5 gram/dL 33.0-36. 0 L RED CELL DISTRIBUTION WIDTH (test code = RDW) 19.7 % 11.6-16. 2 H RED CELL DISTRIBUTION WIDTH SD (test code = RDW-SD) 63.8 fL 37 .0-51.0 H PLATELET COUNT (test code = PLT) 331 K/mm3 150-450 N MEAN PLATELET VOLUME (test code = MPV) 10.1 fL 6.7-11.0 N IMMATURE GRANULOCYTE % (test code = IG%) 36.2 % 0.0-5.0 H "The appearance of immature granulocytes (myelocytes,pro-myelocytes, meta-myelocytes) in the peripheral blood ofnon- individuals can indicate a response toinfection, inflammation, or other stimulus to the bonemarrow" NUCLEATED RBC % (test code = NRBC%) 0.2 % 0-0 H NEUTROPHIL # (test code = NT#) 9.00 K/mm3 1.8-7.7 H IMMATURE GRANULOCYTE # (test code = IG#) 7.13 x10 3/uL 0-0.03 H LYMPHOCYTE # (test code = LY#) 2.12 K/mm3 1.0-5.0 N MONOCYTE # (test code = MO#) 1.33 K/mm3 0-0.8 H EOSINOPHIL # (test code = EO#) 0.03 K/mm3 0.0-0.5 N BASOPHIL # (test code = BA#) 0.06 K/mm3 0.0-0.2 N NUCLEATED RBC # (test code = NRBC#) 0.03 K/mm3 0.0-0.1 N MANUAL DIFF REQUIRED (test code = MDIFF) YES STAIN ACCEPTABILITY (test code = STN ACCEPTABLE) TOTAL CELLS COUNTED (test code = TCC) #CELLS SEGMENTED NEUTROPHILS (test code = SEG) % 39-69 LYMPHOCYTE (test code = LYMPH) % 25-55 MONOCYTE (test code = MON) % 0-10 EOSINOPHIL (test code = EOS) % 0.0-5.0 MORPHOLOGY COMMENT (test code = MOC) PLATELET ESTIMATE (test code = PLTEST) PLATELET MORPHOLOGY (test code = PLTMORPH) CBC W/MANUAL [id number] 05:08:00* Test Item Value Reference Range Interpretation Comments WHITE BLOOD CELL (test code = WBC) 19.7 K/mm3 4.5-12.5 H RED BLOOD CELL (test code = RBC) 2.87 mill/mm3 4.0-5.8 L HEMOGLOBIN (test code = HGB) 8.0 gram/dL 13.0-17.5 L HEMATOCRIT (test code = HCT) 25.4 % 42.0-52.0 L MEAN CELL VOLUME (test code = MCV) 88.5 fL 80-98 N MEAN CELL HGB (test code = MCH) 27.9 picogram 27.0-33.0 N MEAN CELL HGB CONCETRATION (test code = MCHC) 31.5 gram/dL 33.0-36. 0 L RED CELL DISTRIBUTION WIDTH (test code = RDW) 19.7 % 11.6-16. 2 H RED CELL DISTRIBUTION WIDTH SD (test code = RDW-SD) 63.8 fL 37 .0-51.0 H PLATELET COUNT (test code = PLT) 331 K/mm3 150-450 N MEAN PLATELET VOLUME (test code = MPV) 10.1 fL 6.7-11.0 N IMMATURE GRANULOCYTE % (test code = IG%) 36.2 % 0.0-5.0 H "The appearance of immature granulocytes (myelocytes,pro-myelocytes, meta-myelocytes) in the peripheral blood ofnon- individuals can indicate a response toinfection, inflammation, or other stimulus to the bonemarrow" NUCLEATED RBC % (test code = NRBC%) 0.2 % 0-0 H NEUTROPHIL # (test code = NT#) 9.00 K/mm3 1.8-7.7 H IMMATURE GRANULOCYTE # (test code = IG#) 7.13 x10 3/uL 0-0.03 H LYMPHOCYTE # (test code = LY#) 2.12 K/mm3 1.0-5.0 N MONOCYTE # (test code = MO#) 1.33 K/mm3 0-0.8 H EOSINOPHIL # (test code = EO#) 0.03 K/mm3 0.0-0.5 N BASOPHIL # (test code = BA#) 0.06 K/mm3 0.0-0.2 N NUCLEATED RBC # (test code = NRBC#) 0.03 K/mm3 0.0-0.1 N MANUAL DIFF REQUIRED (test code = MDIFF) YES STAIN ACCEPTABILITY (test code = STN ACCEPTABLE) TOTAL CELLS COUNTED (test code = TCC) #CELLS SEGMENTED NEUTROPHILS (test code = SEG) % 39-69 LYMPHOCYTE (test code = LYMPH) % 25-55 MONOCYTE (test code = MON) % 0-10 MORPHOLOGY COMMENT (test code = MOC) PLATELET ESTIMATE (test code = PLTEST) PLATELET MORPHOLOGY (test code = PLTMORPH) CBC W/MANUAL [id number] 05:08:00* Test Item Value Reference Range Interpretation Comments WHITE BLOOD CELL (test code = WBC) 19.7 K/mm3 4.5-12.5 H RED BLOOD CELL (test code = RBC) 2.87 mill/mm3 4.0-5.8 L HEMOGLOBIN (test code = HGB) 8.0 gram/dL 13.0-17.5 L HEMATOCRIT (test code = HCT) 25.4 % 42.0-52.0 L MEAN CELL VOLUME (test code = MCV) 88.5 fL 80-98 N MEAN CELL HGB (test code = MCH) 27.9 picogram 27.0-33.0 N MEAN CELL HGB CONCETRATION (test code = MCHC) 31.5 gram/dL 33.0-36. 0 L RED CELL DISTRIBUTION WIDTH (test code = RDW) 19.7 % 11.6-16. 2 H RED CELL DISTRIBUTION WIDTH SD (test code = RDW-SD) 63.8 fL 37 .0-51.0 H PLATELET COUNT (test code = PLT) 331 K/mm3 150-450 N MEAN PLATELET VOLUME (test code = MPV) 10.1 fL 6.7-11.0 N IMMATURE GRANULOCYTE % (test code = IG%) 36.2 % 0.0-5.0 H "The appearance of immature granulocytes (myelocytes,pro-myelocytes, meta-myelocytes) in the peripheral blood ofnon- individuals can indicate a response toinfection, inflammation, or other stimulus to the bonemarrow" NUCLEATED RBC % (test code = NRBC%) 0.2 % 0-0 H NEUTROPHIL # (test code = NT#) 9.00 K/mm3 1.8-7.7 H IMMATURE GRANULOCYTE # (test code = IG#) 7.13 x10 3/uL 0-0.03 H LYMPHOCYTE # (test code = LY#) 2.12 K/mm3 1.0-5.0 N MONOCYTE # (test code = MO#) 1.33 K/mm3 0-0.8 H EOSINOPHIL # (test code = EO#) 0.03 K/mm3 0.0-0.5 N BASOPHIL # (test code = BA#) 0.06 K/mm3 0.0-0.2 N NUCLEATED RBC # (test code = NRBC#) 0.03 K/mm3 0.0-0.1 N MANUAL DIFF REQUIRED (test code = MDIFF) YES STAIN ACCEPTABILITY (test code = STN ACCEPTABLE) TOTAL CELLS COUNTED (test code = TCC) #CELLS SEGMENTED NEUTROPHILS (test code = SEG) % 39-69 LYMPHOCYTE (test code = LYMPH) % 25-55 MONOCYTE (test code = MON) % 0-10 EOSINOPHIL (test code = EOS) % 0.0-5.0 CABOT RINGS (test code = CAB) MORPHOLOGY COMMENT (test code = MOC) PLATELET ESTIMATE (test code = PLTEST) PLATELET MORPHOLOGY (test code = PLTMORPH) [id number] 04:50:00* Test Item Value Reference Range Interpretation Comments GLUBED (test code = GLUBED) 78 mg/dL 74-106 N Performed by certified sleeve presser operator at [facility] [id number] 20:31:00* Test Item Value Reference Range Interpretation Comments GLUBED (test code = GLUBED) 78 mg/dL 74-106 N Performed by certified sleeve presser operator at [facility] CBC W/MANUAL [id number] 18:25:00* Test Item Value Reference Range Interpretation Comments WHITE BLOOD CELL (test code = WBC) 23.1 K/mm3 4.5-12.5 H RED BLOOD CELL (test code = RBC) 2.74 mill/mm3 4.0-5.8 L HEMOGLOBIN (test code = HGB) 7.9 gram/dL 13.0-17.5 L HEMATOCRIT (test code = HCT) 25.0 % 42.0-52.0 L MEAN CELL VOLUME (test code = MCV) 91.2 fL 80-98 N MEAN CELL HGB (test code = MCH) 28.8 picogram 27.0-33.0 N MEAN CELL HGB CONCETRATION (test code = MCHC) 31.6 gram/dL 33.0-36. 0 L RED CELL DISTRIBUTION WIDTH (test code = RDW) 19.7 % 11.6-16. 2 H RED CELL DISTRIBUTION WIDTH SD (test code = RDW-SD) 65.7 fL 37 .0-51.0 H PLATELET COUNT (test code = PLT) 320 K/mm3 150-450 N MEAN PLATELET VOLUME (test code = MPV) 10.5 fL 6.7-11.0 N IMMATURE GRANULOCYTE % (test code = IG%) 34.4 % 0.0-5.0 H "The appearance of immature granulocytes (myelocytes,pro-myelocytes, meta-myelocytes) in the peripheral blood ofnon- individuals can indicate a response toinfection, inflammation, or other stimulus to the bonemarrow" NUCLEATED RBC % (test code = NRBC%) 0.0 % 0-0 N NEUTROPHIL # (test code = NT#) 11.86 K/mm3 1.8-7.7 H IMMATURE GRANULOCYTE # (test code = IG#) 7.94 x10 3/uL 0-0.03 H LYMPHOCYTE # (test code = LY#) 1.69 K/mm3 1.0-5.0 N MONOCYTE # (test code = MO#) 1.47 K/mm3 0-0.8 H EOSINOPHIL # (test code = EO#) 0.06 K/mm3 0.0-0.5 N BASOPHIL # (test code = BA#) 0.05 K/mm3 0.0-0.2 N NUCLEATED RBC # (test code = NRBC#) 0.00 K/mm3 0.0-0.1 N MANUAL DIFF REQUIRED (test code = MDIFF) YES STAIN ACCEPTABILITY (test code = STN ACCEPTABLE) STAIN ACCEPTABLE TOTAL CELLS COUNTED (test code = TCC) 121 #CELLS SEGMENTED NEUTROPHILS (test code = SEG) 64.5 % 39-69 N BAND NEUTROPHIL (test code = BAND) 8.3 % 0-10 N LYMPHOCYTE (test code = LYMPH) 3.3 % 25-55 L REACTIVE LYMPH (test code = RELYMPH) 0 % MONOCYTE (test code = MON) 6.6 % 0-10 N EOSINOPHIL (test code = EOS) 0 % 0.0-5.0 N BASOPHIL (test code = BASO) 0 % 0-1.0 N METAMYELOCYTE (test code = META) 2.5 % 0-0 H MYELOCYTE (test code = MYELO) 13.2 % 0.0-0.0 H PROMYELOCYTE (test code = PROM) 1.6 % 0-0 H HYPOCHROMIA (test code = HYPO) 1+ POIKILOCYTOSIS (test code = POIK) 1+ ANISOCYTOSIS (test code = ANISO) 1+ ELLIPTOCYTES (test code = ELL) 1+ PLATELET ESTIMATE (test code = PLTEST) ADEQUATE PLATELET MORPHOLOGY (test code = PLTMORPH) NORMAL IMMATURE FORMS (test code = IMMAT) 0 % 0-0 N PATHOLOGISTS [id number] 18:25:00* Test Item Value Reference Range Interpretation Comments PATHOLOGISTS FINDINGS (test code = PATH) PATH NOTES LEUKOCYTOSIS WITH LEFT SHIFT AND TOXIC GRANULATION,MODERATE MARKED NORMOCYTIC ANEMIANO CIRCULATING BLASTS.Reviewed by Pathologist, ERNESTINA RHOADES M.D.12/14/19 CBC W/MANUAL [id number] 10:00:00* Test Item Value Reference Range Interpretation Comments WHITE BLOOD CELL (test code = WBC) 23.1 K/mm3 4.5-12.5 H RED BLOOD CELL (test code = RBC) 2.74 mill/mm3 4.0-5.8 L HEMOGLOBIN (test code = HGB) 7.9 gram/dL 13.0-17.5 L HEMATOCRIT (test code = HCT) 25.0 % 42.0-52.0 L MEAN CELL VOLUME (test code = MCV) 91.2 fL 80-98 N MEAN CELL HGB (test code = MCH) 28.8 picogram 27.0-33.0 N MEAN CELL HGB CONCETRATION (test code = MCHC) 31.6 gram/dL 33.0-36. 0 L RED CELL DISTRIBUTION WIDTH (test code = RDW) 19.7 % 11.6-16. 2 H RED CELL DISTRIBUTION WIDTH SD (test code = RDW-SD) 65.7 fL 37 .0-51.0 H PLATELET COUNT (test code = PLT) 320 K/mm3 150-450 N MEAN PLATELET VOLUME (test code = MPV) 10.5 fL 6.7-11.0 N IMMATURE GRANULOCYTE % (test code = IG%) 34.4 % 0.0-5.0 H "The appearance of immature granulocytes (myelocytes,pro-myelocytes, meta-myelocytes) in the peripheral blood ofnon- individuals can indicate a response toinfection, inflammation, or other stimulus to the bonemarrow" NUCLEATED RBC % (test code = NRBC%) 0.0 % 0-0 N NEUTROPHIL # (test code = NT#) 11.86 K/mm3 1.8-7.7 H IMMATURE GRANULOCYTE # (test code = IG#) 7.94 x10 3/uL 0-0.03 H LYMPHOCYTE # (test code = LY#) 1.69 K/mm3 1.0-5.0 N MONOCYTE # (test code = MO#) 1.47 K/mm3 0-0.8 H EOSINOPHIL # (test code = EO#) 0.06 K/mm3 0.0-0.5 N BASOPHIL # (test code = BA#) 0.05 K/mm3 0.0-0.2 N NUCLEATED RBC # (test code = NRBC#) 0.00 K/mm3 0.0-0.1 N MANUAL DIFF REQUIRED (test code = MDIFF) YES STAIN ACCEPTABILITY (test code = STN ACCEPTABLE) STAIN ACCEPTABLE TOTAL CELLS COUNTED (test code = TCC) 121 #CELLS SEGMENTED NEUTROPHILS (test code = SEG) 64.5 % 39-69 N BAND NEUTROPHIL (test code = BAND) 8.3 % 0-10 N LYMPHOCYTE (test code = LYMPH) 3.3 % 25-55 L REACTIVE LYMPH (test code = RELYMPH) 0 % MONOCYTE (test code = MON) 6.6 % 0-10 N EOSINOPHIL (test code = EOS) 0 % 0.0-5.0 N BASOPHIL (test code = BASO) 0 % 0-1.0 N METAMYELOCYTE (test code = META) 2.5 % 0-0 H MYELOCYTE (test code = MYELO) 13.2 % 0.0-0.0 H PROMYELOCYTE (test code = PROM) 1.6 % 0-0 H HYPOCHROMIA (test code = HYPO) 1+ POIKILOCYTOSIS (test code = POIK) 1+ ANISOCYTOSIS (test code = ANISO) 1+ ELLIPTOCYTES (test code = ELL) 1+ PLATELET ESTIMATE (test code = PLTEST) ADEQUATE PLATELET MORPHOLOGY (test code = PLTMORPH) NORMAL IMMATURE FORMS (test code = IMMAT) 0 % 0-0 N PATHOLOGISTS [id number] 10:00:00* Test Item Value Reference Range Interpretation Comments PATHOLOGISTS FINDINGS (test code = PATH) PATH NOTES - XR CHEST 1 [id number] 08:45:00 FAX: Sammy Mccain MD [place]: St: ADM FAX: Tate Wheeler MD [phone] Name: [place] [facility] : 1960 Age/S: 59/M [address] [facility] Unit #: [id number] Loc: [place] [address] Phys: Tate Elena MD Acct: [id number] Dis Date: Status: ADM IN PHONE #: [phone] Exam Date: 12/14/2019 0753 FAX #: [phone] Reason: pneumonia EXAMS: CPT CODE: [id number] XR CHEST 1 V [id number] HISTORY: Pneumonia. COMPARISON: December 02, 2019. Location: [facility]. NG tube is shallow and could be advanced 5 cm for better positioning. Mild crowding of bronchovascular markings. No acute infiltrates, effusion or congestion. Cardiomegaly. IMPRESSION: No acute infiltrates, effusion or congestion with dependent changes. at 0845 Reported and signed by: Saw Pierson M.D. CC: Sammy Lopez MD; Tate Elena MD Technologist: Magdalena Parikh RT(R); ALEJO WINN RT(R) Trnscrd Date/Time/By: 12/14/2019 (0845) : By: [email or web address] Orig Print D /T: S: 12/14/2019 (0848) PAGE 1 S igned Report CBC W/MANUAL [id number] 08:39:00 * Test Item Value Reference Range Interpretation Comments WHITE BLOOD CELL (test code = WBC) 23.1 K/mm3 4.5-12.5 H RED BLOOD CELL (test code = RBC) 2.74 mill/mm3 4.0-5.8 L HEMOGLOBIN (test code = HGB) 7.9 gram/dL 13.0-17.5 L HEMATOCRIT (test code = HCT) 25.0 % 42.0-52.0 L MEAN CELL VOLUME (test code = MCV) 91.2 fL 80-98 N MEAN CELL HGB (test code = MCH) 28.8 picogram 27.0-33.0 N MEAN CELL HGB CONCETRATION (test code = MCHC) 31.6 gram/dL 33.0-36. 0 L RED CELL DISTRIBUTION WIDTH (test code = RDW) 19.7 % 11.6-16. 2 H RED CELL DISTRIBUTION WIDTH SD (test code = RDW-SD) 65.7 fL 37 .0-51.0 H PLATELET COUNT (test code = PLT) 320 K/mm3 150-450 N MEAN PLATELET VOLUME (test code = MPV) 10.5 fL 6.7-11.0 N IMMATURE GRANULOCYTE % (test code = IG%) 34.4 % 0.0-5.0 H "The appearance of immature granulocytes (myelocytes,pro-myelocytes, meta-myelocytes) in the peripheral blood ofnon- individuals can indicate a response toinfection, inflammation, or other stimulus to the bonemarrow" NUCLEATED RBC % (test code = NRBC%) 0.0 % 0-0 N NEUTROPHIL # (test code = NT#) 11.86 K/mm3 1.8-7.7 H IMMATURE GRANULOCYTE # (test code = IG#) 7.94 x10 3/uL 0-0.03 H LYMPHOCYTE # (test code = LY#) 1.69 K/mm3 1.0-5.0 N MONOCYTE # (test code = MO#) 1.47 K/mm3 0-0.8 H EOSINOPHIL # (test code = EO#) 0.06 K/mm3 0.0-0.5 N BASOPHIL # (test code = BA#) 0.05 K/mm3 0.0-0.2 N NUCLEATED RBC # (test code = NRBC#) 0.00 K/mm3 0.0-0.1 N MANUAL DIFF REQUIRED (test code = MDIFF) YES STAIN ACCEPTABILITY (test code = STN ACCEPTABLE) STAIN ACCEPTABLE TOTAL CELLS COUNTED (test code = TCC) 121 #CELLS SEGMENTED NEUTROPHILS (test code = SEG) 64.5 % 39-69 N BAND NEUTROPHIL (test code = BAND) 8.3 % 0-10 N LYMPHOCYTE (test code = LYMPH) 3.3 % 25-55 L REACTIVE LYMPH (test code = RELYMPH) 0 % MONOCYTE (test code = MON) 6.6 % 0-10 N EOSINOPHIL (test code = EOS) 0 % 0.0-5.0 N BASOPHIL (test code = BASO) 0 % 0-1.0 N METAMYELOCYTE (test code = META) 2.5 % 0-0 H MYELOCYTE (test code = MYELO) 13.2 % 0.0-0.0 H PROMYELOCYTE (test code = PROM) 1.6 % 0-0 H HYPOCHROMIA (test code = HYPO) 1+ POIKILOCYTOSIS (test code = POIK) 1+ ANISOCYTOSIS (test code = ANISO) 1+ ELLIPTOCYTES (test code = ELL) 1+ PLATELET ESTIMATE (test code = PLTEST) ADEQUATE PLATELET MORPHOLOGY (test code = PLTMORPH) NORMAL IMMATURE FORMS (test code = IMMAT) 0 % 0-0 N CBC W/MANUAL [id number] 07:56:00* Test Item Value Reference Range Interpretation Comments WHITE BLOOD CELL (test code = WBC) 23.1 K/mm3 4.5-12.5 H RED BLOOD CELL (test code = RBC) 2.74 mill/mm3 4.0-5.8 L HEMOGLOBIN (test code = HGB) 7.9 gram/dL 13.0-17.5 L HEMATOCRIT (test code = HCT) 25.0 % 42.0-52.0 L MEAN CELL VOLUME (test code = MCV) 91.2 fL 80-98 N MEAN CELL HGB (test code = MCH) 28.8 picogram 27.0-33.0 N MEAN CELL HGB CONCETRATION (test code = MCHC) 31.6 gram/dL 33.0-36. 0 L RED CELL DISTRIBUTION WIDTH (test code = RDW) 19.7 % 11.6-16. 2 H RED CELL DISTRIBUTION WIDTH SD (test code = RDW-SD) 65.7 fL 37 .0-51.0 H PLATELET COUNT (test code = PLT) 320 K/mm3 150-450 N MEAN PLATELET VOLUME (test code = MPV) 10.5 fL 6.7-11.0 N IMMATURE GRANULOCYTE % (test code = IG%) 34.4 % 0.0-5.0 H "The appearance of immature granulocytes (myelocytes,pro-myelocytes, meta-myelocytes) in the peripheral blood ofnon- individuals can indicate a response toinfection, inflammation, or other stimulus to the bonemarrow" NUCLEATED RBC % (test code = NRBC%) 0.0 % 0-0 N NEUTROPHIL # (test code = NT#) 11.86 K/mm3 1.8-7.7 H IMMATURE GRANULOCYTE # (test code = IG#) 7.94 x10 3/uL 0-0.03 H LYMPHOCYTE # (test code = LY#) 1.69 K/mm3 1.0-5.0 N MONOCYTE # (test code = MO#) 1.47 K/mm3 0-0.8 H EOSINOPHIL # (test code = EO#) 0.06 K/mm3 0.0-0.5 N BASOPHIL # (test code = BA#) 0.05 K/mm3 0.0-0.2 N NUCLEATED RBC # (test code = NRBC#) 0.00 K/mm3 0.0-0.1 N MANUAL DIFF REQUIRED (test code = MDIFF) YES STAIN ACCEPTABILITY (test code = STN ACCEPTABLE) TOTAL CELLS COUNTED (test code = TCC) #CELLS SEGMENTED NEUTROPHILS (test code = SEG) % 39-69 LYMPHOCYTE (test code = LYMPH) % 25-55 MONOCYTE (test code = MON) % 0-10 EOSINOPHIL (test code = EOS) % 0.0-5.0 CABOT RINGS (test code = CAB) MORPHOLOGY COMMENT (test code = MOC) PLATELET ESTIMATE (test code = PLTEST) PLATELET MORPHOLOGY (test code = PLTMORPH) CBC W/MANUAL [id number] 07:56:00* Test Item Value Reference Range Interpretation Comments WHITE BLOOD CELL (test code = WBC) 23.1 K/mm3 4.5-12.5 H RED BLOOD CELL (test code = RBC) 2.74 mill/mm3 4.0-5.8 L HEMOGLOBIN (test code = HGB) 7.9 gram/dL 13.0-17.5 L HEMATOCRIT (test code = HCT) 25.0 % 42.0-52.0 L MEAN CELL VOLUME (test code = MCV) 91.2 fL 80-98 N MEAN CELL HGB (test code = MCH) 28.8 picogram 27.0-33.0 N MEAN CELL HGB CONCETRATION (test code = MCHC) 31.6 gram/dL 33.0-36. 0 L RED CELL DISTRIBUTION WIDTH (test code = RDW) 19.7 % 11.6-16. 2 H RED CELL DISTRIBUTION WIDTH SD (test code = RDW-SD) 65.7 fL 37 .0-51.0 H PLATELET COUNT (test code = PLT) 320 K/mm3 150-450 N MEAN PLATELET VOLUME (test code = MPV) 10.5 fL 6.7-11.0 N IMMATURE GRANULOCYTE % (test code = IG%) 34.4 % 0.0-5.0 H "The appearance of immature granulocytes (myelocytes,pro-myelocytes, meta-myelocytes) in the peripheral blood ofnon- individuals can indicate a response toinfection, inflammation, or other stimulus to the bonemarrow" NUCLEATED RBC % (test code = NRBC%) 0.0 % 0-0 N NEUTROPHIL # (test code = NT#) 11.86 K/mm3 1.8-7.7 H IMMATURE GRANULOCYTE # (test code = IG#) 7.94 x10 3/uL 0-0.03 H LYMPHOCYTE # (test code = LY#) 1.69 K/mm3 1.0-5.0 N MONOCYTE # (test code = MO#) 1.47 K/mm3 0-0.8 H EOSINOPHIL # (test code = EO#) 0.06 K/mm3 0.0-0.5 N BASOPHIL # (test code = BA#) 0.05 K/mm3 0.0-0.2 N NUCLEATED RBC # (test code = NRBC#) 0.00 K/mm3 0.0-0.1 N MANUAL DIFF REQUIRED (test code = MDIFF) YES STAIN ACCEPTABILITY (test code = STN ACCEPTABLE) TOTAL CELLS COUNTED (test code = TCC) #CELLS SEGMENTED NEUTROPHILS (test code = SEG) % 39-69 LYMPHOCYTE (test code = LYMPH) % 25-55 MONOCYTE (test code = MON) % 0-10 EOSINOPHIL (test code = EOS) % 0.0-5.0 CABOT RINGS (test code = CAB) MORPHOLOGY COMMENT (test code = MOC) PLATELET ESTIMATE (test code = PLTEST) PLATELET MORPHOLOGY (test code = PLTMORPH) CBC W/MANUAL [id number] 07:56:00* Test Item Value Reference Range Interpretation Comments WHITE BLOOD CELL (test code = WBC) 23.1 K/mm3 4.5-12.5 H RED BLOOD CELL (test code = RBC) 2.74 mill/mm3 4.0-5.8 L HEMOGLOBIN (test code = HGB) 7.9 gram/dL 13.0-17.5 L HEMATOCRIT (test code = HCT) 25.0 % 42.0-52.0 L MEAN CELL VOLUME (test code = MCV) 91.2 fL 80-98 N MEAN CELL HGB (test code = MCH) 28.8 picogram 27.0-33.0 N MEAN CELL HGB CONCETRATION (test code = MCHC) 31.6 gram/dL 33.0-36. 0 L RED CELL DISTRIBUTION WIDTH (test code = RDW) 19.7 % 11.6-16. 2 H RED CELL DISTRIBUTION WIDTH SD (test code = RDW-SD) 65.7 fL 37 .0-51.0 H PLATELET COUNT (test code = PLT) 320 K/mm3 150-450 N MEAN PLATELET VOLUME (test code = MPV) 10.5 fL 6.7-11.0 N IMMATURE GRANULOCYTE % (test code = IG%) 34.4 % 0.0-5.0 H "The appearance of immature granulocytes (myelocytes,pro-myelocytes, meta-myelocytes) in the peripheral blood ofnon- individuals can indicate a response toinfection, inflammation, or other stimulus to the bonemarrow" NUCLEATED RBC % (test code = NRBC%) 0.0 % 0-0 N NEUTROPHIL # (test code = NT#) 11.86 K/mm3 1.8-7.7 H IMMATURE GRANULOCYTE # (test code = IG#) 7.94 x10 3/uL 0-0.03 H LYMPHOCYTE # (test code = LY#) 1.69 K/mm3 1.0-5.0 N MONOCYTE # (test code = MO#) 1.47 K/mm3 0-0.8 H EOSINOPHIL # (test code = EO#) 0.06 K/mm3 0.0-0.5 N BASOPHIL # (test code = BA#) 0.05 K/mm3 0.0-0.2 N NUCLEATED RBC # (test code = NRBC#) 0.00 K/mm3 0.0-0.1 N MANUAL DIFF REQUIRED (test code = MDIFF) YES STAIN ACCEPTABILITY (test code = STN ACCEPTABLE) TOTAL CELLS COUNTED (test code = TCC) #CELLS SEGMENTED NEUTROPHILS (test code = SEG) % 39-69 LYMPHOCYTE (test code = LYMPH) % 25-55 MONOCYTE (test code = MON) % 0-10 EOSINOPHIL (test code = EOS) % 0.0-5.0 MORPHOLOGY COMMENT (test code = MOC) PLATELET ESTIMATE (test code = PLTEST) PLATELET MORPHOLOGY (test code = PLTMORPH) CBC W/MANUAL [id number] 07:56:00* Test Item Value Reference Range Interpretation Comments WHITE BLOOD CELL (test code = WBC) 23.1 K/mm3 4.5-12.5 H RED BLOOD CELL (test code = RBC) 2.74 mill/mm3 4.0-5.8 L HEMOGLOBIN (test code = HGB) 7.9 gram/dL 13.0-17.5 L HEMATOCRIT (test code = HCT) 25.0 % 42.0-52.0 L MEAN CELL VOLUME (test code = MCV) 91.2 fL 80-98 N MEAN CELL HGB (test code = MCH) 28.8 picogram 27.0-33.0 N MEAN CELL HGB CONCETRATION (test code = MCHC) 31.6 gram/dL 33.0-36. 0 L RED CELL DISTRIBUTION WIDTH (test code = RDW) 19.7 % 11.6-16. 2 H RED CELL DISTRIBUTION WIDTH SD (test code = RDW-SD) 65.7 fL 37 .0-51.0 H PLATELET COUNT (test code = PLT) 320 K/mm3 150-450 N MEAN PLATELET VOLUME (test code = MPV) 10.5 fL 6.7-11.0 N IMMATURE GRANULOCYTE % (test code = IG%) 34.4 % 0.0-5.0 H "The appearance of immature granulocytes (myelocytes,pro-myelocytes, meta-myelocytes) in the peripheral blood ofnon- individuals can indicate a response toinfection, inflammation, or other stimulus to the bon[place]" NUCLEATED RBC % (test code = NRBC%) 0.0 % 0-0 N NEUTROPHIL # (test code = NT#) 11.86 K/mm3 1.8-7.7 H IMMATURE GRANULOCYTE # (test code = IG#) 7.94 x10 3/uL 0-0.03 H LYMPHOCYTE # (test code = LY#) 1.69 K/mm3 1.0-5.0 N MONOCYTE # (test code = MO#) 1.47 K/mm3 0-0.8 H EOSINOPHIL # (test code = EO#) 0.06 K/mm3 0.0-0.5 N BASOPHIL # (test code = BA#) 0.05 K/mm3 0.0-0.2 N NUCLEATED RBC # (test code = NRBC#) 0.00 K/mm3 0.0-0.1 N MANUAL DIFF REQUIRED (test code = MDIFF) YES STAIN ACCEPTABILITY (test code = STN ACCEPTABLE) TOTAL CELLS COUNTED (test code = TCC) #CELLS SEGMENTED NEUTROPHILS (test code = SEG) % 39-69 LYMPHOCYTE (test code = LYMPH) % 25-55 MONOCYTE (test code = MON) % 0-10 MORPHOLOGY COMMENT (test code = MOC) PLATELET ESTIMATE (test code = PLTEST) PLATELET MORPHOLOGY (test code = PLTMORPH) CBC W/MANUAL [id number] 07:56:00* Test Item Value Reference Range Interpretation Comments WHITE BLOOD CELL (test code = WBC) 23.1 K/mm3 4.5-12.5 H RED BLOOD CELL (test code = RBC) 2.74 mill/mm3 4.0-5.8 L HEMOGLOBIN (test code = HGB) 7.9 gram/dL 13.0-17.5 L HEMATOCRIT (test code = HCT) 25.0 % 42.0-52.0 L MEAN CELL VOLUME (test code = MCV) 91.2 fL 80-98 N MEAN CELL HGB (test code = MCH) 28.8 picogram 27.0-33.0 N MEAN CELL HGB CONCETRATION (test code = MCHC) 31.6 gram/dL 33.0-36. 0 L RED CELL DISTRIBUTION WIDTH (test code = RDW) 19.7 % 11.6-16. 2 H RED CELL DISTRIBUTION WIDTH SD (test code = RDW-SD) 65.7 fL 37 .0-51.0 H PLATELET COUNT (test code = PLT) 320 K/mm3 150-450 N MEAN PLATELET VOLUME (test code = MPV) 10.5 fL 6.7-11.0 N IMMATURE GRANULOCYTE % (test code = IG%) 34.4 % 0.0-5.0 H "The appearance of immature granulocytes (myelocytes,pro-myelocytes, meta-myelocytes) in the peripheral blood ofnon- individuals can indicate a response toinfection, inflammation, or other stimulus to the [place]" NUCLEATED RBC % (test code = NRBC%) 0.0 % 0-0 N NEUTROPHIL # (test code = NT#) 11.86 K/mm3 1.8-7.7 H IMMATURE GRANULOCYTE # (test code = IG#) 7.94 x10 3/uL 0-0.03 H LYMPHOCYTE # (test code = LY#) 1.69 K/mm3 1.0-5.0 N MONOCYTE # (test code = MO#) 1.47 K/mm3 0-0.8 H EOSINOPHIL # (test code = EO#) 0.06 K/mm3 0.0-0.5 N BASOPHIL # (test code = BA#) 0.05 K/mm3 0.0-0.2 N NUCLEATED RBC # (test code = NRBC#) 0.00 K/mm3 0.0-0.1 N MANUAL DIFF REQUIRED (test code = MDIFF) YES STAIN ACCEPTABILITY (test code = STN ACCEPTABLE) TOTAL CELLS COUNTED (test code = TCC) #CELLS SEGMENTED NEUTROPHILS (test code = SEG) % 39-69 LYMPHOCYTE (test code = LYMPH) % 25-55 MONOCYTE (test code = MON) % 0-10 EOSINOPHIL (test code = EOS) % 0.0-5.0 CABOT RINGS (test code = CAB) MORPHOLOGY COMMENT (test code = MOC) PLATELET ESTIMATE (test code = PLTEST) PLATELET MORPHOLOGY (test code = PLTMORPH) COMPREHENSIVE METABOLIC [id number] 07:40:00* Test Item Value Reference Range Interpretation Comments SODIUM (test code = NA) 146 mmol/L 136-145 H POTASSIUM (test code = K) 3.5 mmol/L 3.5-5.1 N CHLORIDE (test code = CL) 116.0 mmol/L 98-107 H CARBON DIOXIDE (test code = CO2) 28.0 mmol/L 21-32 N ANION GAP (test code = GAP) 5.5 10-20 L GLUCOSE (test code = GLU) 79 mg/dL 74-106 N BLOOD UREA NITROGEN (test code = BUN) 13 mg/dL 7-18 N GLOMERULAR FILTRATION RATE (test code = GFR) > 60 mL/min >=60 Estimated GFR by using Modified MDRD formula.Chronic kidney disease is defined as either kidney damageor GFR <60 mL/min/1.73 m2 for >3 months. CREATININE (test code = CREAT) 0.60 mg/dL 0.7-1.3 L BUN/CREATININE RATIO (test code = BUN/CREA) 21.1 10-20 H TOTAL PROTEIN (test code = PROT) 5.4 gram/dL 6.4-8.2 L ALBUMIN (test code = ALB) 2.3 g/dL 3.4-5.0 L GLOBULIN (test code = GLOB) 3.1 gram/dL 2.7-4.2 N ALBUMIN/GLOBULIN RATIO (test code = A/G) 0.7 0.75-1.50 L CALCIUM (test code = CA) 8.1 mg/dL 8.5-10.1 L BILIRUBIN TOTAL (test code = BILT) 0.20 mg/dL 0.0-1.0 N SGOT/AST (test code = AST) 16 IUnit/L 15-37 N SGPT/ALT (test code = ALT) < 6 IUnit/L 12-78 L ALKALINE PHOSPHATASE TOTAL (test code = ALKP) 72 IUnit/L 45-117 N Note change in reference range due to change in reagent. [id number] 07:40:00* Test Item Value Reference Range Interpretation Comments PHOSPHORUS (test code = PHOS) 1.7 mg/dL 2.5-4.9 L [id number] 07:40:00* Test Item Value Reference Range Interpretation Comments MAGNESIUM (test code = MAG) 1.7 mg/dL 1.8-2.4 L CALCIUM [id number] 07:40:00* Test Item Value Reference Range Interpretation Comments CALCIUM IONIZED (test code = RADHA) 1.25 mmol/L 1.12-1.32 N COMPREHENSIVE METABOLIC [id number] 07:09:00* Test Item Value Reference Range Interpretation Comments SODIUM (test code = NA) 146 mmol/L 136-145 H POTASSIUM (test code = K) 3.5 mmol/L 3.5-5.1 N CHLORIDE (test code = CL) 116.0 mmol/L 98-107 H CARBON DIOXIDE (test code = CO2) mmol/L 21-32 ANION GAP (test code = GAP) 10-20 GLUCOSE (test code = GLU) mg/dL 74-106 BLOOD UREA NITROGEN (test code = BUN) mg/dL 7-18 GLOMERULAR FILTRATION RATE (test code = GFR) mL/min >=60 CREATININE (test code = CREAT) mg/dL 0.7-1.3 BUN/CREATININE RATIO (test code = BUN/CREA) 10-20 TOTAL PROTEIN (test code = PROT) gram/dL 6.4-8.2 ALBUMIN (test code = ALB) g/dL 3.4-5.0 GLOBULIN (test code = GLOB) gram/dL 2.7-4.2 ALBUMIN/GLOBULIN RATIO (test code = A/G) 0.75-1.50 CALCIUM (test code = CA) mg/dL 8.5-10.1 BILIRUBIN TOTAL (test code = BILT) mg/dL 0.0-1.0 SGOT/AST (test code = AST) IUnit/L 15-37 SGPT/ALT (test code = ALT) IUnit/L 12-78 ALKALINE PHOSPHATASE TOTAL (test code = ALKP) IUnit/L 45-117 [id number] 07:09:00* Test Item Value Reference Range Interpretation Comments PHOSPHORUS (test code = PHOS) mg/dL 2.5-4.9 [id number] 07:09:00* Test Item Value Reference Range Interpretation Comments MAGNESIUM (test code = MAG) mg/dL 1.8-2.4 CALCIUM [id number] 07:09:00* Test Item Value Reference Range Interpretation Comments CALCIUM IONIZED (test code = RADHA) 1.25 mmol/L 1.12-1.32 N COMPREHENSIVE METABOLIC [id number] 07:03:00* Test Item Value Reference Range Interpretation Comments SODIUM (test code = NA) 146 mmol/L 136-145 H POTASSIUM (test code = K) 3.5 mmol/L 3.5-5.1 N CHLORIDE (test code = CL) 116.0 mmol/L 98-107 H CARBON DIOXIDE (test code = CO2) mmol/L 21-32 ANION GAP (test code = GAP) 10-20 GLUCOSE (test code = GLU) mg/dL 74-106 BLOOD UREA NITROGEN (test code = BUN) mg/dL 7-18 GLOMERULAR FILTRATION RATE (test code = GFR) mL/min >=60 CREATININE (test code = CREAT) mg/dL 0.7-1.3 BUN/CREATININE RATIO (test code = BUN/CREA) 10-20 TOTAL PROTEIN (test code = PROT) gram/dL 6.4-8.2 ALBUMIN (test code = ALB) g/dL 3.4-5.0 GLOBULIN (test code = GLOB) gram/dL 2.7-4.2 ALBUMIN/GLOBULIN RATIO (test code = A/G) 0.75-1.50 CALCIUM (test code = CA) mg/dL 8.5-10.1 BILIRUBIN TOTAL (test code = BILT) mg/dL 0.0-1.0 SGOT/AST (test code = AST) IUnit/L 15-37 SGPT/ALT (test code = ALT) IUnit/L 12-78 ALKALINE PHOSPHATASE TOTAL (test code = ALKP) IUnit/L 45-117 [id number] 07:03:00* Test Item Value Reference Range Interpretation Comments PHOSPHORUS (test code = PHOS) mg/dL 2.5-4.9 [id number] 07:03:00* Test Item Value Reference Range Interpretation Comments MAGNESIUM (test code = MAG) mg/dL 1.8-2.4 CALCIUM [id number] 07:03:00* Test Item Value Reference Range Interpretation Comments CALCIUM IONIZED (test code = RADHA) mmol/L 1.12-1.32 CBC W/MANUAL [id number] 09:59:00* Test Item Value Reference Range Interpretation Comments WHITE BLOOD CELL (test code = WBC) 23.0 K/mm3 4.5-12.5 H RED BLOOD CELL (test code = RBC) 2.91 mill/mm3 4.0-5.8 L HEMOGLOBIN (test code = HGB) 8.0 gram/dL 13.0-17.5 L HEMATOCRIT (test code = HCT) 26.0 % 42.0-52.0 L MEAN CELL VOLUME (test code = MCV) 89.3 fL 80-98 N MEAN CELL HGB (test code = MCH) 27.5 picogram 27.0-33.0 N MEAN CELL HGB CONCETRATION (test code = MCHC) 30.8 gram/dL 33.0-36. 0 L RED CELL DISTRIBUTION WIDTH (test code = RDW) 19.4 % 11.6-16. 2 H RED CELL DISTRIBUTION WIDTH SD (test code = RDW-SD) 63.8 fL 37 .0-51.0 H PLATELET COUNT (test code = PLT) 321 K/mm3 150-450 RESULT VERIFIED BY REPEAT ANALYSIS MEAN PLATELET VOLUME (test code = MPV) 10.0 fL 6.7-11.0 N IMMATURE GRANULOCYTE % (test code = IG%) 37.4 % 0.0-5.0 H "The appearance of immature granulocytes (myelocytes,pro-myelocytes, meta-myelocytes) in the peripheral blood ofnon- individuals can indicate a response toinfection, inflammation, or other stimulus to the [place]" NUCLEATED RBC % (test code = NRBC%) 0.0 % 0-0 N NEUTROPHIL # (test code = NT#) 11.54 K/mm3 1.8-7.7 H IMMATURE GRANULOCYTE # (test code = IG#) 8.60 x10 3/uL 0-0.03 H LYMPHOCYTE # (test code = LY#) 1.47 K/mm3 1.0-5.0 N MONOCYTE # (test code = MO#) 1.30 K/mm3 0-0.8 H EOSINOPHIL # (test code = EO#) 0.07 K/mm3 0.0-0.5 N BASOPHIL # (test code = BA#) 0.04 K/mm3 0.0-0.2 N NUCLEATED RBC # (test code = NRBC#) 0.00 K/mm3 0.0-0.1 N MANUAL DIFF REQUIRED (test code = MDIFF) YES STAIN ACCEPTABILITY (test code = STN ACCEPTABLE) STAIN ACCEPTABLE TOTAL CELLS COUNTED (test code = TCC) 115 #CELLS SEGMENTED NEUTROPHILS (test code = SEG) 70.4 % 39-69 H BAND NEUTROPHIL (test code = BAND) 9.5 % 0-10 N LYMPHOCYTE (test code = LYMPH) 8.7 % 25-55 L REACTIVE LYMPH (test code = RELYMPH) 3.5 % MONOCYTE (test code = MON) 6.1 % 0-10 N EOSINOPHIL (test code = EOS) 0 % 0.0-5.0 N BASOPHIL (test code = BASO) 0.9 % 0-1.0 N METAMYELOCYTE (test code = META) 0 % 0-0 N MYELOCYTE (test code = MYELO) 0.9 % 0.0-0.0 H PROMYELOCYTE (test code = PROM) 0 % 0-0 N POIKILOCYTOSIS (test code = POIK) 1+ PLATELET ESTIMATE (test code = PLTEST) ADEQUATE PLATELET MORPHOLOGY (test code = PLTMORPH) NORMAL IMMATURE FORMS (test code = IMMAT) 0 % 0-0 N COMPREHENSIVE METABOLIC [id number] 08:44:00* Test Item Value Reference Range Interpretation Comments SODIUM (test code = NA) 146 mmol/L 136-145 H POTASSIUM (test code = K) 3.5 mmol/L 3.5-5.1 N CHLORIDE (test code = CL) 114.0 mmol/L 98-107 H CARBON DIOXIDE (test code = CO2) 25.0 mmol/L 21-32 N ANION GAP (test code = GAP) 10.5 10-20 N GLUCOSE (test code = GLU) 78 mg/dL 74-106 N BLOOD UREA NITROGEN (test code = BUN) 16 mg/dL 7-18 N GLOMERULAR FILTRATION RATE (test code = GFR) > 60 mL/min >=60 Estimated GFR by using Modified MDRD formula.Chronic kidney disease is defined as either kidney damageor GFR <60 mL/min/1.73 m2 for >3 months. CREATININE (test code = CREAT) 0.70 mg/dL 0.7-1.3 N BUN/CREATININE RATIO (test code = BUN/CREA) 22.8 10-20 H TOTAL PROTEIN (test code = PROT) 5.5 gram/dL 6.4-8.2 L ALBUMIN (test code = ALB) 2.3 g/dL 3.4-5.0 L GLOBULIN (test code = GLOB) 3.2 gram/dL 2.7-4.2 N ALBUMIN/GLOBULIN RATIO (test code = A/G) 0.7 0.75-1.50 L CALCIUM (test code = CA) 8.2 mg/dL 8.5-10.1 L BILIRUBIN TOTAL (test code = BILT) 0.20 mg/dL 0.0-1.0 N SGOT/AST (test code = AST) 17 IUnit/L 15-37 N SGPT/ALT (test code = ALT) < 6 IUnit/L 12-78 L ALKALINE PHOSPHATASE TOTAL (test code = ALKP) 79 IUnit/L 45-117 N Note change in reference range due to change in reagent. [id number] 08:44:00* Test Item Value Reference Range Interpretation Comments PHOSPHORUS (test code = PHOS) 2.3 mg/dL 2.5-4.9 L [id number] 08:44:00* Test Item Value Reference Range Interpretation Comments MAGNESIUM (test code = MAG) 1.9 mg/dL 1.8-2.4 N CALCIUM [id number] 08:44:00* Test Item Value Reference Range Interpretation Comments CALCIUM IONIZED (test code = RADHA) 1.28 mmol/L 1.12-1.32 N COMPREHENSIVE METABOLIC [id number] 07:55:00* Test Item Value Reference Range Interpretation Comments SODIUM (test code = NA) 146 mmol/L 136-145 H POTASSIUM (test code = K) 3.5 mmol/L 3.5-5.1 N CHLORIDE (test code = CL) 114.0 mmol/L 98-107 H CARBON DIOXIDE (test code = CO2) 25.0 mmol/L 21-32 N ANION GAP (test code = GAP) 10.5 10-20 N GLUCOSE (test code = GLU) 78 mg/dL 74-106 N BLOOD UREA NITROGEN (test code = BUN) 16 mg/dL 7-18 N GLOMERULAR FILTRATION RATE (test code = GFR) > 60 mL/min >=60 Estimated GFR by using Modified MDRD formula.Chronic kidney disease is defined as either kidney damageor GFR <60 mL/min/1.73 m2 for >3 months. CREATININE (test code = CREAT) 0.70 mg/dL 0.7-1.3 N BUN/CREATININE RATIO (test code = BUN/CREA) 22.8 10-20 H TOTAL PROTEIN (test code = PROT) 5.5 gram/dL 6.4-8.2 L ALBUMIN (test code = ALB) 2.3 g/dL 3.4-5.0 L GLOBULIN (test code = GLOB) 3.2 gram/dL 2.7-4.2 N ALBUMIN/GLOBULIN RATIO (test code = A/G) 0.7 0.75-1.50 L CALCIUM (test code = CA) 8.2 mg/dL 8.5-10.1 L BILIRUBIN TOTAL (test code = BILT) 0.20 mg/dL 0.0-1.0 N SGOT/AST (test code = AST) 17 IUnit/L 15-37 N SGPT/ALT (test code = ALT) < 6 IUnit/L 12-78 L ALKALINE PHOSPHATASE TOTAL (test code = ALKP) 79 IUnit/L 45-117 N Note change in reference range due to change in reagent. [id number] 07:55:00* Test Item Value Reference Range Interpretation Comments PHOSPHORUS (test code = PHOS) 2.3 mg/dL 2.5-4.9 L [id number] 07:55:00* Test Item Value Reference Range Interpretation Comments MAGNESIUM (test code = MAG) 1.9 mg/dL 1.8-2.4 N CALCIUM [id number] 07:55:00* Test Item Value Reference Range Interpretation Comments CALCIUM IONIZED (test code = RADHA) mmol/L 1.12-1.32 CBC W/MANUAL [id number] 07:46:00* Test Item Value Reference Range Interpretation Comments WHITE BLOOD CELL (test code = WBC) 23.0 K/mm3 4.5-12.5 H RED BLOOD CELL (test code = RBC) 2.91 mill/mm3 4.0-5.8 L HEMOGLOBIN (test code = HGB) 8.0 gram/dL 13.0-17.5 L HEMATOCRIT (test code = HCT) 26.0 % 42.0-52.0 L MEAN CELL VOLUME (test code = MCV) 89.3 fL 80-98 N MEAN CELL HGB (test code = MCH) 27.5 picogram 27.0-33.0 N MEAN CELL HGB CONCETRATION (test code = MCHC) 30.8 gram/dL 33.0-36. 0 L RED CELL DISTRIBUTION WIDTH (test code = RDW) 19.4 % 11.6-16. 2 H RED CELL DISTRIBUTION WIDTH SD (test code = RDW-SD) 63.8 fL 37 .0-51.0 H PLATELET COUNT (test code = PLT) 321 K/mm3 150-450 RESULT VERIFIED BY REPEAT ANALYSIS MEAN PLATELET VOLUME (test code = MPV) 10.0 fL 6.7-11.0 N IMMATURE GRANULOCYTE % (test code = IG%) 37.4 % 0.0-5.0 H "The appearance of immature granulocytes (myelocytes,pro-myelocytes, meta-myelocytes) in the peripheral blood ofnon- individuals can indicate a response toinfection, inflammation, or other stimulus to the bonemarrow" NUCLEATED RBC % (test code = NRBC%) 0.0 % 0-0 N NEUTROPHIL # (test code = NT#) 11.54 K/mm3 1.8-7.7 H IMMATURE GRANULOCYTE # (test code = IG#) 8.60 x10 3/uL 0-0.03 H LYMPHOCYTE # (test code = LY#) 1.47 K/mm3 1.0-5.0 N MONOCYTE # (test code = MO#) 1.30 K/mm3 0-0.8 H EOSINOPHIL # (test code = EO#) 0.07 K/mm3 0.0-0.5 N BASOPHIL # (test code = BA#) 0.04 K/mm3 0.0-0.2 N NUCLEATED RBC # (test code = NRBC#) 0.00 K/mm3 0.0-0.1 N MANUAL DIFF REQUIRED (test code = MDIFF) YES STAIN ACCEPTABILITY (test code = STN ACCEPTABLE) TOTAL CELLS COUNTED (test code = TCC) #CELLS SEGMENTED NEUTROPHILS (test code = SEG) % 39-69 LYMPHOCYTE (test code = LYMPH) % 25-55 MONOCYTE (test code = MON) % 0-10 EOSINOPHIL (test code = EOS) % 0.0-5.0 CABOT RINGS (test code = CAB) MORPHOLOGY COMMENT (test code = MOC) PLATELET ESTIMATE (test code = PLTEST) PLATELET MORPHOLOGY (test code = PLTMORPH) CBC W/MANUAL [id number] 07:46:00* Test Item Value Reference Range Interpretation Comments WHITE BLOOD CELL (test code = WBC) 23.0 K/mm3 4.5-12.5 H RED BLOOD CELL (test code = RBC) 2.91 mill/mm3 4.0-5.8 L HEMOGLOBIN (test code = HGB) 8.0 gram/dL 13.0-17.5 L HEMATOCRIT (test code = HCT) 26.0 % 42.0-52.0 L MEAN CELL VOLUME (test code = MCV) 89.3 fL 80-98 N MEAN CELL HGB (test code = MCH) 27.5 picogram 27.0-33.0 N MEAN CELL HGB CONCETRATION (test code = MCHC) 30.8 gram/dL 33.0-36. 0 L RED CELL DISTRIBUTION WIDTH (test code = RDW) 19.4 % 11.6-16. 2 H RED CELL DISTRIBUTION WIDTH SD (test code = RDW-SD) 63.8 fL 37 .0-51.0 H PLATELET COUNT (test code = PLT) 321 K/mm3 150-450 RESULT VERIFIED BY REPEAT ANALYSIS MEAN PLATELET VOLUME (test code = MPV) 10.0 fL 6.7-11.0 N IMMATURE GRANULOCYTE % (test code = IG%) 37.4 % 0.0-5.0 H "The appearance of immature granulocytes (myelocytes,pro-myelocytes, meta-myelocytes) in the peripheral blood ofnon- individuals can indicate a response toinfection, inflammation, or other stimulus to the bon[place]arrow" NUCLEATED RBC % (test code = NRBC%) 0.0 % 0-0 N NEUTROPHIL # (test code = NT#) 11.54 K/mm3 1.8-7.7 H IMMATURE GRANULOCYTE # (test code = IG#) 8.60 x10 3/uL 0-0.03 H LYMPHOCYTE # (test code = LY#) 1.47 K/mm3 1.0-5.0 N MONOCYTE # (test code = MO#) 1.30 K/mm3 0-0.8 H EOSINOPHIL # (test code = EO#) 0.07 K/mm3 0.0-0.5 N BASOPHIL # (test code = BA#) 0.04 K/mm3 0.0-0.2 N NUCLEATED RBC # (test code = NRBC#) 0.00 K/mm3 0.0-0.1 N MANUAL DIFF REQUIRED (test code = MDIFF) YES STAIN ACCEPTABILITY (test code = STN ACCEPTABLE) TOTAL CELLS COUNTED (test code = TCC) #CELLS SEGMENTED NEUTROPHILS (test code = SEG) % 39-69 LYMPHOCYTE (test code = LYMPH) % 25-55 MONOCYTE (test code = MON) % 0-10 EOSINOPHIL (test code = EOS) % 0.0-5.0 MORPHOLOGY COMMENT (test code = MOC) PLATELET ESTIMATE (test code = PLTEST) PLATELET MORPHOLOGY (test code = PLTMORPH) CBC W/MANUAL [id number] 07:46:00* Test Item Value Reference Range Interpretation Comments WHITE BLOOD CELL (test code = WBC) 23.0 K/mm3 4.5-12.5 H RED BLOOD CELL (test code = RBC) 2.91 mill/mm3 4.0-5.8 L HEMOGLOBIN (test code = HGB) 8.0 gram/dL 13.0-17.5 L HEMATOCRIT (test code = HCT) 26.0 % 42.0-52.0 L MEAN CELL VOLUME (test code = MCV) 89.3 fL 80-98 N MEAN CELL HGB (test code = MCH) 27.5 picogram 27.0-33.0 N MEAN CELL HGB CONCETRATION (test code = MCHC) 30.8 gram/dL 33.0-36. 0 L RED CELL DISTRIBUTION WIDTH (test code = RDW) 19.4 % 11.6-16. 2 H RED CELL DISTRIBUTION WIDTH SD (test code = RDW-SD) 63.8 fL 37 .0-51.0 H PLATELET COUNT (test code = PLT) 321 K/mm3 150-450 RESULT VERIFIED BY REPEAT ANALYSIS MEAN PLATELET VOLUME (test code = MPV) 10.0 fL 6.7-11.0 N IMMATURE GRANULOCYTE % (test code = IG%) 37.4 % 0.0-5.0 H "The appearance of immature granulocytes (myelocytes,pro-myelocytes, meta-myelocytes) in the peripheral blood ofnon- individuals can indicate a response toinfection, inflammation, or other stimulus to the bonemarrow" NUCLEATED RBC % (test code = NRBC%) 0.0 % 0-0 N NEUTROPHIL # (test code = NT#) 11.54 K/mm3 1.8-7.7 H IMMATURE GRANULOCYTE # (test code = IG#) 8.60 x10 3/uL 0-0.03 H LYMPHOCYTE # (test code = LY#) 1.47 K/mm3 1.0-5.0 N MONOCYTE # (test code = MO#) 1.30 K/mm3 0-0.8 H EOSINOPHIL # (test code = EO#) 0.07 K/mm3 0.0-0.5 N BASOPHIL # (test code = BA#) 0.04 K/mm3 0.0-0.2 N NUCLEATED RBC # (test code = NRBC#) 0.00 K/mm3 0.0-0.1 N MANUAL DIFF REQUIRED (test code = MDIFF) YES STAIN ACCEPTABILITY (test code = STN ACCEPTABLE) TOTAL CELLS COUNTED (test code = TCC) #CELLS SEGMENTED NEUTROPHILS (test code = SEG) % 39-69 LYMPHOCYTE (test code = LYMPH) % 25-55 MONOCYTE (test code = MON) % 0-10 MORPHOLOGY COMMENT (test code = MOC) PLATELET ESTIMATE (test code = PLTEST) PLATELET MORPHOLOGY (test code = PLTMORPH) COMPREHENSIVE METABOLIC [id number] 07:46:00* Test Item Value Reference Range Interpretation Comments SODIUM (test code = NA) 146 mmol/L 136-145 H POTASSIUM (test code = K) 3.5 mmol/L 3.5-5.1 N CHLORIDE (test code = CL) 114.0 mmol/L 98-107 H CARBON DIOXIDE (test code = CO2) mmol/L 21-32 ANION GAP (test code = GAP) 10-20 GLUCOSE (test code = GLU) mg/dL 74-106 BLOOD UREA NITROGEN (test code = BUN) mg/dL 7-18 GLOMERULAR FILTRATION RATE (test code = GFR) mL/min >=60 CREATININE (test code = CREAT) mg/dL 0.7-1.3 BUN/CREATININE RATIO (test code = BUN/CREA) 10-20 TOTAL PROTEIN (test code = PROT) gram/dL 6.4-8.2 ALBUMIN (test code = ALB) g/dL 3.4-5.0 GLOBULIN (test code = GLOB) gram/dL 2.7-4.2 ALBUMIN/GLOBULIN RATIO (test code = A/G) 0.75-1.50 CALCIUM (test code = CA) mg/dL 8.5-10.1 BILIRUBIN TOTAL (test code = BILT) mg/dL 0.0-1.0 SGOT/AST (test code = AST) IUnit/L 15-37 SGPT/ALT (test code = ALT) IUnit/L 12-78 ALKALINE PHOSPHATASE TOTAL (test code = ALKP) IUnit/L 45-117 [id number] 07:46:00* Test Item Value Reference Range Interpretation Comments PHOSPHORUS (test code = PHOS) mg/dL 2.5-4.9 [id number] 07:46:00* Test Item Value Reference Range Interpretation Comments MAGNESIUM (test code = MAG) mg/dL 1.8-2.4 CALCIUM [id number] 07:46:00* Test Item Value Reference Range Interpretation Comments CALCIUM IONIZED (test code = RADHA) mmol/L 1.12-1.32 CBC W/MANUAL [id number] 07:45:00* Test Item Value Reference Range Interpretation Comments WHITE BLOOD CELL (test code = WBC) 23.0 K/mm3 4.5-12.5 H RED BLOOD CELL (test code = RBC) 2.91 mill/mm3 4.0-5.8 L HEMOGLOBIN (test code = HGB) 8.0 gram/dL 13.0-17.5 L HEMATOCRIT (test code = HCT) 26.0 % 42.0-52.0 L MEAN CELL VOLUME (test code = MCV) 89.3 fL 80-98 N MEAN CELL HGB (test code = MCH) 27.5 picogram 27.0-33.0 N MEAN CELL HGB CONCETRATION (test code = MCHC) 30.8 gram/dL 33.0-36. 0 L RED CELL DISTRIBUTION WIDTH (test code = RDW) 19.4 % 11.6-16. 2 H RED CELL DISTRIBUTION WIDTH SD (test code = RDW-SD) 63.8 fL 37 .0-51.0 H PLATELET COUNT (test code = PLT) 321 K/mm3 150-450 RESULT VERIFIED BY REPEAT ANALYSIS MEAN PLATELET VOLUME (test code = MPV) 10.0 fL 6.7-11.0 N IMMATURE GRANULOCYTE % (test code = IG%) 37.4 % 0.0-5.0 H "The appearance of immature granulocytes (myelocytes,pro-myelocytes, meta-myelocytes) in the peripheral blood ofnon- individuals can indicate a response toinfection, inflammation, or other stimulus to the bonemarrow" NUCLEATED RBC % (test code = NRBC%) 0.0 % 0-0 N NEUTROPHIL # (test code = NT#) 11.54 K/mm3 1.8-7.7 H IMMATURE GRANULOCYTE # (test code = IG#) 8.60 x10 3/uL 0-0.03 H LYMPHOCYTE # (test code = LY#) 1.47 K/mm3 1.0-5.0 N MONOCYTE # (test code = MO#) 1.30 K/mm3 0-0.8 H EOSINOPHIL # (test code = EO#) 0.07 K/mm3 0.0-0.5 N BASOPHIL # (test code = BA#) 0.04 K/mm3 0.0-0.2 N NUCLEATED RBC # (test code = NRBC#) 0.00 K/mm3 0.0-0.1 N MANUAL DIFF REQUIRED (test code = MDIFF) YES STAIN ACCEPTABILITY (test code = STN ACCEPTABLE) TOTAL CELLS COUNTED (test code = TCC) #CELLS SEGMENTED NEUTROPHILS (test code = SEG) % 39-69 LYMPHOCYTE (test code = LYMPH) % 25-55 MONOCYTE (test code = MON) % 0-10 EOSINOPHIL (test code = EOS) % 0.0-5.0 CABOT RINGS (test code = CAB) MORPHOLOGY COMMENT (test code = MOC) PLATELET ESTIMATE (test code = PLTEST) PLATELET MORPHOLOGY (test code = PLTMORPH) CBC W/MANUAL [id number] 07:45:00* Test Item Value Reference Range Interpretation Comments WHITE BLOOD CELL (test code = WBC) 23.0 K/mm3 4.5-12.5 H RED BLOOD CELL (test code = RBC) 2.91 mill/mm3 4.0-5.8 L HEMOGLOBIN (test code = HGB) 8.0 gram/dL 13.0-17.5 L HEMATOCRIT (test code = HCT) 26.0 % 42.0-52.0 L MEAN CELL VOLUME (test code = MCV) 89.3 fL 80-98 N MEAN CELL HGB (test code = MCH) 27.5 picogram 27.0-33.0 N MEAN CELL HGB CONCETRATION (test code = MCHC) 30.8 gram/dL 33.0-36. 0 L RED CELL DISTRIBUTION WIDTH (test code = RDW) 19.4 % 11.6-16. 2 H RED CELL DISTRIBUTION WIDTH SD (test code = RDW-SD) 63.8 fL 37 .0-51.0 H PLATELET COUNT (test code = PLT) 321 K/mm3 150-450 RESULT VERIFIED BY REPEAT ANALYSIS MEAN PLATELET VOLUME (test code = MPV) 10.0 fL 6.7-11.0 N IMMATURE GRANULOCYTE % (test code = IG%) 37.4 % 0.0-5.0 H "The appearance of immature granulocytes (myelocytes,pro-myelocytes, meta-myelocytes) in the peripheral blood ofnon- individuals can indicate a response toinfection, inflammation, or other stimulus to the bonemarrow" NUCLEATED RBC % (test code = NRBC%) 0.0 % 0-0 N NEUTROPHIL # (test code = NT#) 11.54 K/mm3 1.8-7.7 H IMMATURE GRANULOCYTE # (test code = IG#) 8.60 x10 3/uL 0-0.03 H LYMPHOCYTE # (test code = LY#) 1.47 K/mm3 1.0-5.0 N MONOCYTE # (test code = MO#) 1.30 K/mm3 0-0.8 H EOSINOPHIL # (test code = EO#) 0.07 K/mm3 0.0-0.5 N BASOPHIL # (test code = BA#) 0.04 K/mm3 0.0-0.2 N NUCLEATED RBC # (test code = NRBC#) 0.00 K/mm3 0.0-0.1 N MANUAL DIFF REQUIRED (test code = MDIFF) YES STAIN ACCEPTABILITY (test code = STN ACCEPTABLE) TOTAL CELLS COUNTED (test code = TCC) #CELLS SEGMENTED NEUTROPHILS (test code = SEG) % 39-69 LYMPHOCYTE (test code = LYMPH) % 25-55 MONOCYTE (test code = MON) % 0-10 EOSINOPHIL (test code = EOS) % 0.0-5.0 CABOT RINGS (test code = CAB) MORPHOLOGY COMMENT (test code = MOC) PLATELET ESTIMATE (test code = PLTEST) PLATELET MORPHOLOGY (test code = PLTMORPH) [id number] 06:43:00* Test Item Value Reference Range Interpretation Comments GLUBED (test code = GLUBED) 77 mg/dL 74-106 N Performed by certified sleeve presser operator at [facility] - XR CHEST 1 [id number] 11:07:00 FAX: Sammy Mccain MD [place]: B St: ADM Name: [place] [facility] : [birth year] 57 Age/S: 59/M [address] [facility] Unit #: [id number] Loc: V.[address] [place] [address] Phys: Sammy Lopez MD Acct: [id number] Dis Date: Status: ADM IN PHONE #: [phone] Exam Date: 12/12/2019 1049 FAX #: [phone] Reason: NG TUBE PLACEMENT EXAMS: CPT CODE: [id number] XR CHEST 1 V 57919 HISTORY: NG tube placement. COMPARISON: December 09, 2019. Location: [facility]. NG tube extends below the diaphragm in good position. Dependent changes . No acute infiltrates, effusion or congestion. Cardiomegaly. IM PRESSION: NG tube extends below the diaphragm with the tip in the stomach in good position. at 1107 Reported and signed b y: Saw Pierson M.D. CC: Sammy Lopez MD Technologist: Brinda Retana(R) Trnscrd Date/Time/By: 12/12/2019 (1107) : By: [email or web address] Orig Print D/T: S: 12/12/2019 (2075) PAGE 1 Signed Report CBC W/MANUAL DIFF 2019-12-12 06:44:00* Test Item Value Reference Range Interpretation Comments WHITE BLOOD CELL (test code = WBC) 15.6 K/mm3 4.5-12.5 H RED BLOOD CELL (test code = RBC) 2.65 mill/mm3 4.0-5.8 L HEMOGLOBIN (test code = HGB) 7.4 gram/dL 13.0-17.5 L HEMATOCRIT (test code = HCT) 23.8 % 42.0-52.0 L MEAN CELL VOLUME (test code = MCV) 89.8 fL 80-98 N MEAN CELL HGB (test code = MCH) 27.9 picogram 27.0-33.0 N MEAN CELL HGB CONCETRATION (test code = MCHC) 31.1 gram/dL 33.0-36. 0 L RED CELL DISTRIBUTION WIDTH (test code = RDW) 19.4 % 11.6-16. 2 H RED CELL DISTRIBUTION WIDTH SD (test code = RDW-SD) 63.7 fL 37 .0-51.0 H PLATELET COUNT (test code = PLT) 255 K/mm3 150-450 N MEAN PLATELET VOLUME (test code = MPV) 10.0 fL 6.7-11.0 N NEUTROPHIL % (test code = NT%) 47.7 % 39.0-69.0 N IMMATURE GRANULOCYTE % (test code = IG%) 32.2 % 0.0-5.0 H "The appearance of immature granulocytes (myelocytes,pro-myelocytes, meta-myelocytes) in the peripheral blood ofnon- individuals can indicate a response toinfection, inflammation, or other stimulus to the bonemarrow" LYMPHOCYTE % (test code = LY%) 7.1 % 25.0-55.0 L MONOCYTE % (test code = MO%) 11.1 % 0.0-10.0 H EOSINOPHIL % (test code = EO%) 1.6 % 0.0-5.0 N BASOPHIL % (test code = BA%) 0.3 % 0.0-1.0 N NUCLEATED RBC % (test code = NRBC%) 0.0 % 0-0 N NEUTROPHIL # (test code = NT#) 7.46 K/mm3 1.8-7.7 N IMMATURE GRANULOCYTE # (test code = IG#) 5.03 x10 3/uL 0-0.03 H LYMPHOCYTE # (test code = LY#) 1.11 K/mm3 1.0-5.0 N MONOCYTE # (test code = MO#) 1.73 K/mm3 0-0.8 H EOSINOPHIL # (test code = EO#) 0.25 K/mm3 0.0-0.5 N BASOPHIL # (test code = BA#) 0.05 K/mm3 0.0-0.2 N NUCLEATED RBC # (test code = NRBC#) 0.00 K/mm3 0.0-0.1 N MANUAL DIFF REQUIRED (test code = MDIFF) DIFF NEEDED STAIN ACCEPTABILITY (test code = STN ACCEPTABLE) STAIN ACCEPTABLE TOTAL CELLS COUNTED (test code = TCC) 114 #CELLS SEGMENTED NEUTROPHILS (test code = SEG) 71.9 % 39-69 H BAND NEUTROPHIL (test code = BAND) 0.9 % 0-10 N LYMPHOCYTE (test code = LYMPH) 7.0 % 25-55 L REACTIVE LYMPH (test code = RELYMPH) 0 % MONOCYTE (test code = MON) 8.8 % 0-10 N EOSINOPHIL (test code = EOS) 1.7 % 0.0-5.0 N BASOPHIL (test code = BASO) 0 % 0-1.0 N METAMYELOCYTE (test code = META) 1.8 % 0-0 H MYELOCYTE (test code = MYELO) 7.9 % 0.0-0.0 H PROMYELOCYTE (test code = PROM) 0 % 0-0 N POIKILOCYTOSIS (test code = POIK) 1+ ANISOCYTOSIS (test code = ANISO) 2+ OVALOCYTES (test code = OVAL) 1+ MORPHOLOGY COMMENT (test code = MOC) TEST NOT PERFORMED PLATELET ESTIMATE (test code = PLTEST) ADEQUATE PLATELET MORPHOLOGY (test code = PLTMORPH) NORMAL IMMATURE FORMS (test code = IMMAT) 0 % 0-0 N COMPREHENSIVE METABOLIC [id number] 06:38:00* Test Item Value Reference Range Interpretation Comments SODIUM (test code = NA) 145 mmol/L 136-145 N POTASSIUM (test code = K) 3.7 mmol/L 3.5-5.1 N CHLORIDE (test code = CL) 114.0 mmol/L 98-107 H CARBON DIOXIDE (test code = CO2) 25.0 mmol/L 21-32 N ANION GAP (test code = GAP) 9.7 10-20 L GLUCOSE (test code = GLU) 74 mg/dL 74-106 N BLOOD UREA NITROGEN (test code = BUN) 24 mg/dL 7-18 H GLOMERULAR FILTRATION RATE (test code = GFR) > 60 mL/min >=60 Estimated GFR by using Modified MDRD formula.Chronic kidney disease is defined as either kidney damageor GFR <60 mL/min/1.73 m2 for >3 months. CREATININE (test code = CREAT) 0.80 mg/dL 0.7-1.3 N BUN/CREATININE RATIO (test code = BUN/CREA) 29.4 10-20 H TOTAL PROTEIN (test code = PROT) 5.1 gram/dL 6.4-8.2 L ALBUMIN (test code = ALB) 2.3 g/dL 3.4-5.0 L GLOBULIN (test code = GLOB) 2.8 gram/dL 2.7-4.2 N ALBUMIN/GLOBULIN RATIO (test code = A/G) 0.8 0.75-1.50 N CALCIUM (test code = CA) 7.9 mg/dL 8.5-10.1 L BILIRUBIN TOTAL (test code = BILT) 0.20 mg/dL 0.0-1.0 N SGOT/AST (test code = AST) 11 IUnit/L 15-37 L SGPT/ALT (test code = ALT) < 6 IUnit/L 12-78 L ALKALINE PHOSPHATASE TOTAL (test code = ALKP) 70 IUnit/L 45-117 N Note change in reference range due to change in reagent. [id number] 06:38:00* Test Item Value Reference Range Interpretation Comments PHOSPHORUS (test code = PHOS) 4.1 mg/dL 2.5-4.9 N [id number] 06:38:00* Test Item Value Reference Range Interpretation Comments MAGNESIUM (test code = MAG) 2.0 mg/dL 1.8-2.4 N CALCIUM [id number] 06:38:00* Test Item Value Reference Range Interpretation Comments CALCIUM IONIZED (test code = RADHA) 1.25 mmol/L 1.12-1.32 N COMPREHENSIVE METABOLIC [id number] 06:33:00* Test Item Value Reference Range Interpretation Comments SODIUM (test code = NA) 145 mmol/L 136-145 N POTASSIUM (test code = K) 3.7 mmol/L 3.5-5.1 N CHLORIDE (test code = CL) 114.0 mmol/L 98-107 H CARBON DIOXIDE (test code = CO2) mmol/L 21-32 ANION GAP (test code = GAP) 10-20 GLUCOSE (test code = GLU) mg/dL 74-106 BLOOD UREA NITROGEN (test code = BUN) mg/dL 7-18 GLOMERULAR FILTRATION RATE (test code = GFR) mL/min >=60 CREATININE (test code = CREAT) mg/dL 0.7-1.3 BUN/CREATININE RATIO (test code = BUN/CREA) 10-20 TOTAL PROTEIN (test code = PROT) gram/dL 6.4-8.2 ALBUMIN (test code = ALB) g/dL 3.4-5.0 GLOBULIN (test code = GLOB) gram/dL 2.7-4.2 ALBUMIN/GLOBULIN RATIO (test code = A/G) 0.75-1.50 CALCIUM (test code = CA) mg/dL 8.5-10.1 BILIRUBIN TOTAL (test code = BILT) mg/dL 0.0-1.0 SGOT/AST (test code = AST) IUnit/L 15-37 SGPT/ALT (test code = ALT) IUnit/L 12-78 ALKALINE PHOSPHATASE TOTAL (test code = ALKP) IUnit/L 45-117 [id number] 06:33:00* Test Item Value Reference Range Interpretation Comments PHOSPHORUS (test code = PHOS) mg/dL 2.5-4.9 [id number] 06:33:00* Test Item Value Reference Range Interpretation Comments MAGNESIUM (test code = MAG) mg/dL 1.8-2.4 CALCIUM [id number] 06:33:00* Test Item Value Reference Range Interpretation Comments CALCIUM IONIZED (test code = RADHA) 1.25 mmol/L 1.12-1.32 N COMPREHENSIVE METABOLIC [id number] 06:29:00* Test Item Value Reference Range Interpretation Comments SODIUM (test code = NA) 145 mmol/L 136-145 N POTASSIUM (test code = K) 3.7 mmol/L 3.5-5.1 N CHLORIDE (test code = CL) 114.0 mmol/L 98-107 H CARBON DIOXIDE (test code = CO2) mmol/L 21-32 ANION GAP (test code = GAP) 10-20 GLUCOSE (test code = GLU) mg/dL 74-106 BLOOD UREA NITROGEN (test code = BUN) mg/dL 7-18 GLOMERULAR FILTRATION RATE (test code = GFR) mL/min >=60 CREATININE (test code = CREAT) mg/dL 0.7-1.3 BUN/CREATININE RATIO (test code = BUN/CREA) 10-20 TOTAL PROTEIN (test code = PROT) gram/dL 6.4-8.2 ALBUMIN (test code = ALB) g/dL 3.4-5.0 GLOBULIN (test code = GLOB) gram/dL 2.7-4.2 ALBUMIN/GLOBULIN RATIO (test code = A/G) 0.75-1.50 CALCIUM (test code = CA) mg/dL 8.5-10.1 BILIRUBIN TOTAL (test code = BILT) mg/dL 0.0-1.0 SGOT/AST (test code = AST) IUnit/L 15-37 SGPT/ALT (test code = ALT) IUnit/L 12-78 ALKALINE PHOSPHATASE TOTAL (test code = ALKP) IUnit/L 45-117 [id number] 06:29:00* Test Item Value Reference Range Interpretation Comments PHOSPHORUS (test code = PHOS) mg/dL 2.5-4.9 [id number] 06:29:00* Test Item Value Reference Range Interpretation Comments MAGNESIUM (test code = MAG) mg/dL 1.8-2.4 CALCIUM [id number] 06:29:00* Test Item Value Reference Range Interpretation Comments CALCIUM IONIZED (test code = RADHA) mmol/L 1.12-1.32 CBC W/MANUAL [id number] 06:13:00* Test Item Value Reference Range Interpretation Comments WHITE BLOOD CELL (test code = WBC) 15.6 K/mm3 4.5-12.5 H RED BLOOD CELL (test code = RBC) 2.65 mill/mm3 4.0-5.8 L HEMOGLOBIN (test code = HGB) 7.4 gram/dL 13.0-17.5 L HEMATOCRIT (test code = HCT) 23.8 % 42.0-52.0 L MEAN CELL VOLUME (test code = MCV) 89.8 fL 80-98 N MEAN CELL HGB (test code = MCH) 27.9 picogram 27.0-33.0 N MEAN CELL HGB CONCETRATION (test code = MCHC) 31.1 gram/dL 33.0-36. 0 L RED CELL DISTRIBUTION WIDTH (test code = RDW) 19.4 % 11.6-16. 2 H RED CELL DISTRIBUTION WIDTH SD (test code = RDW-SD) 63.7 fL 37 .0-51.0 H PLATELET COUNT (test code = PLT) 255 K/mm3 150-450 N MEAN PLATELET VOLUME (test code = MPV) 10.0 fL 6.7-11.0 N NEUTROPHIL % (test code = NT%) 47.7 % 39.0-69.0 N IMMATURE GRANULOCYTE % (test code = IG%) 32.2 % 0.0-5.0 H "The appearance of immature granulocytes (myelocytes,pro-myelocytes, meta-myelocytes) in the peripheral blood ofnon- individuals can indicate a response toinfection, inflammation, or other stimulus to the bonemarrow" LYMPHOCYTE % (test code = LY%) 7.1 % 25.0-55.0 L MONOCYTE % (test code = MO%) 11.1 % 0.0-10.0 H EOSINOPHIL % (test code = EO%) 1.6 % 0.0-5.0 N BASOPHIL % (test code = BA%) 0.3 % 0.0-1.0 N NUCLEATED RBC % (test code = NRBC%) 0.0 % 0-0 N NEUTROPHIL # (test code = NT#) 7.46 K/mm3 1.8-7.7 N IMMATURE GRANULOCYTE # (test code = IG#) 5.03 x10 3/uL 0-0.03 H LYMPHOCYTE # (test code = LY#) 1.11 K/mm3 1.0-5.0 N MONOCYTE # (test code = MO#) 1.73 K/mm3 0-0.8 H EOSINOPHIL # (test code = EO#) 0.25 K/mm3 0.0-0.5 N BASOPHIL # (test code = BA#) 0.05 K/mm3 0.0-0.2 N NUCLEATED RBC # (test code = NRBC#) 0.00 K/mm3 0.0-0.1 N MANUAL DIFF REQUIRED (test code = MDIFF) DIFF NEEDED STAIN ACCEPTABILITY (test code = STN ACCEPTABLE) TOTAL CELLS COUNTED (test code = TCC) #CELLS SEGMENTED NEUTROPHILS (test code = SEG) % 39-69 LYMPHOCYTE (test code = LYMPH) % 25-55 MONOCYTE (test code = MON) % 0-10 EOSINOPHIL (test code = EOS) % 0.0-5.0 CABOT RINGS (test code = CAB) MORPHOLOGY COMMENT (test code = MOC) PLATELET ESTIMATE (test code = PLTEST) PLATELET MORPHOLOGY (test code = PLTMORPH) CBC W/MANUAL [id number] 06:13:00* Test Item Value Reference Range Interpretation Comments WHITE BLOOD CELL (test code = WBC) 15.6 K/mm3 4.5-12.5 H RED BLOOD CELL (test code = RBC) 2.65 mill/mm3 4.0-5.8 L HEMOGLOBIN (test code = HGB) 7.4 gram/dL 13.0-17.5 L HEMATOCRIT (test code = HCT) 23.8 % 42.0-52.0 L MEAN CELL VOLUME (test code = MCV) 89.8 fL 80-98 N MEAN CELL HGB (test code = MCH) 27.9 picogram 27.0-33.0 N MEAN CELL HGB CONCETRATION (test code = MCHC) 31.1 gram/dL 33.0-36. 0 L RED CELL DISTRIBUTION WIDTH (test code = RDW) 19.4 % 11.6-16. 2 H RED CELL DISTRIBUTION WIDTH SD (test code = RDW-SD) 63.7 fL 37 .0-51.0 H PLATELET COUNT (test code = PLT) 255 K/mm3 150-450 N MEAN PLATELET VOLUME (test code = MPV) 10.0 fL 6.7-11.0 N NEUTROPHIL % (test code = NT%) 47.7 % 39.0-69.0 N IMMATURE GRANULOCYTE % (test code = IG%) 32.2 % 0.0-5.0 H "The appearance of immature granulocytes (myelocytes,pro-myelocytes, meta-myelocytes) in the peripheral blood ofnon- individuals can indicate a response toinfection, inflammation, or other stimulus to the bonemarrow" LYMPHOCYTE % (test code = LY%) 7.1 % 25.0-55.0 L MONOCYTE % (test code = MO%) 11.1 % 0.0-10.0 H EOSINOPHIL % (test code = EO%) 1.6 % 0.0-5.0 N BASOPHIL % (test code = BA%) 0.3 % 0.0-1.0 N NUCLEATED RBC % (test code = NRBC%) 0.0 % 0-0 N NEUTROPHIL # (test code = NT#) 7.46 K/mm3 1.8-7.7 N IMMATURE GRANULOCYTE # (test code = IG#) 5.03 x10 3/uL 0-0.03 H LYMPHOCYTE # (test code = LY#) 1.11 K/mm3 1.0-5.0 N MONOCYTE # (test code = MO#) 1.73 K/mm3 0-0.8 H EOSINOPHIL # (test code = EO#) 0.25 K/mm3 0.0-0.5 N BASOPHIL # (test code = BA#) 0.05 K/mm3 0.0-0.2 N NUCLEATED RBC # (test code = NRBC#) 0.00 K/mm3 0.0-0.1 N MANUAL DIFF REQUIRED (test code = MDIFF) DIFF NEEDED STAIN ACCEPTABILITY (test code = STN ACCEPTABLE) TOTAL CELLS COUNTED (test code = TCC) #CELLS SEGMENTED NEUTROPHILS (test code = SEG) % 39-69 LYMPHOCYTE (test code = LYMPH) % 25-55 MONOCYTE (test code = MON) % 0-10 EOSINOPHIL (test code = EOS) % 0.0-5.0 CABOT RINGS (test code = CAB) MORPHOLOGY COMMENT (test code = MOC) PLATELET ESTIMATE (test code = PLTEST) PLATELET MORPHOLOGY (test code = PLTMORPH) CBC W/MANUAL [id number] 06:13:00* Test Item Value Reference Range Interpretation Comments WHITE BLOOD CELL (test code = WBC) 15.6 K/mm3 4.5-12.5 H RED BLOOD CELL (test code = RBC) 2.65 mill/mm3 4.0-5.8 L HEMOGLOBIN (test code = HGB) 7.4 gram/dL 13.0-17.5 L HEMATOCRIT (test code = HCT) 23.8 % 42.0-52.0 L MEAN CELL VOLUME (test code = MCV) 89.8 fL 80-98 N MEAN CELL HGB (test code = MCH) 27.9 picogram 27.0-33.0 N MEAN CELL HGB CONCETRATION (test code = MCHC) 31.1 gram/dL 33.0-36. 0 L RED CELL DISTRIBUTION WIDTH (test code = RDW) 19.4 % 11.6-16. 2 H RED CELL DISTRIBUTION WIDTH SD (test code = RDW-SD) 63.7 fL 37 .0-51.0 H PLATELET COUNT (test code = PLT) 255 K/mm3 150-450 N MEAN PLATELET VOLUME (test code = MPV) 10.0 fL 6.7-11.0 N NEUTROPHIL % (test code = NT%) 47.7 % 39.0-69.0 N IMMATURE GRANULOCYTE % (test code = IG%) 32.2 % 0.0-5.0 H "The appearance of immature granulocytes (myelocytes,pro-myelocytes, meta-myelocytes) in the peripheral blood ofnon- individuals can indicate a response toinfection, inflammation, or other stimulus to the bonemarrow" LYMPHOCYTE % (test code = LY%) 7.1 % 25.0-55.0 L MONOCYTE % (test code = MO%) 11.1 % 0.0-10.0 H EOSINOPHIL % (test code = EO%) 1.6 % 0.0-5.0 N BASOPHIL % (test code = BA%) 0.3 % 0.0-1.0 N NUCLEATED RBC % (test code = NRBC%) 0.0 % 0-0 N NEUTROPHIL # (test code = NT#) 7.46 K/mm3 1.8-7.7 N IMMATURE GRANULOCYTE # (test code = IG#) 5.03 x10 3/uL 0-0.03 H LYMPHOCYTE # (test code = LY#) 1.11 K/mm3 1.0-5.0 N MONOCYTE # (test code = MO#) 1.73 K/mm3 0-0.8 H EOSINOPHIL # (test code = EO#) 0.25 K/mm3 0.0-0.5 N BASOPHIL # (test code = BA#) 0.05 K/mm3 0.0-0.2 N NUCLEATED RBC # (test code = NRBC#) 0.00 K/mm3 0.0-0.1 N MANUAL DIFF REQUIRED (test code = MDIFF) DIFF NEEDED STAIN ACCEPTABILITY (test code = STN ACCEPTABLE) TOTAL CELLS COUNTED (test code = TCC) #CELLS SEGMENTED NEUTROPHILS (test code = SEG) % 39-69 LYMPHOCYTE (test code = LYMPH) % 25-55 MONOCYTE (test code = MON) % 0-10 EOSINOPHIL (test code = EOS) % 0.0-5.0 MORPHOLOGY COMMENT (test code = MOC) PLATELET ESTIMATE (test code = PLTEST) PLATELET MORPHOLOGY (test code = PLTMORPH) CBC W/MANUAL [id number] 06:13:00* Test Item Value Reference Range Interpretation Comments WHITE BLOOD CELL (test code = WBC) 15.6 K/mm3 4.5-12.5 H RED BLOOD CELL (test code = RBC) 2.65 mill/mm3 4.0-5.8 L HEMOGLOBIN (test code = HGB) 7.4 gram/dL 13.0-17.5 L HEMATOCRIT (test code = HCT) 23.8 % 42.0-52.0 L MEAN CELL VOLUME (test code = MCV) 89.8 fL 80-98 N MEAN CELL HGB (test code = MCH) 27.9 picogram 27.0-33.0 N MEAN CELL HGB CONCETRATION (test code = MCHC) 31.1 gram/dL 33.0-36. 0 L RED CELL DISTRIBUTION WIDTH (test code = RDW) 19.4 % 11.6-16. 2 H RED CELL DISTRIBUTION WIDTH SD (test code = RDW-SD) 63.7 fL 37 .0-51.0 H PLATELET COUNT (test code = PLT) 255 K/mm3 150-450 N MEAN PLATELET VOLUME (test code = MPV) 10.0 fL 6.7-11.0 N NEUTROPHIL % (test code = NT%) 47.7 % 39.0-69.0 N IMMATURE GRANULOCYTE % (test code = IG%) 32.2 % 0.0-5.0 H "The appearance of immature granulocytes (myelocytes,pro-myelocytes, meta-myelocytes) in the peripheral blood ofnon- individuals can indicate a response toinfection, inflammation, or other stimulus to the bonemarrow" LYMPHOCYTE % (test code = LY%) 7.1 % 25.0-55.0 L MONOCYTE % (test code = MO%) 11.1 % 0.0-10.0 H EOSINOPHIL % (test code = EO%) 1.6 % 0.0-5.0 N BASOPHIL % (test code = BA%) 0.3 % 0.0-1.0 N NUCLEATED RBC % (test code = NRBC%) 0.0 % 0-0 N NEUTROPHIL # (test code = NT#) 7.46 K/mm3 1.8-7.7 N IMMATURE GRANULOCYTE # (test code = IG#) 5.03 x10 3/uL 0-0.03 H LYMPHOCYTE # (test code = LY#) 1.11 K/mm3 1.0-5.0 N MONOCYTE # (test code = MO#) 1.73 K/mm3 0-0.8 H EOSINOPHIL # (test code = EO#) 0.25 K/mm3 0.0-0.5 N BASOPHIL # (test code = BA#) 0.05 K/mm3 0.0-0.2 N NUCLEATED RBC # (test code = NRBC#) 0.00 K/mm3 0.0-0.1 N MANUAL DIFF REQUIRED (test code = MDIFF) DIFF NEEDED STAIN ACCEPTABILITY (test code = STN ACCEPTABLE) TOTAL CELLS COUNTED (test code = TCC) #CELLS SEGMENTED NEUTROPHILS (test code = SEG) % 39-69 LYMPHOCYTE (test code = LYMPH) % 25-55 MONOCYTE (test code = MON) % 0-10 MORPHOLOGY COMMENT (test code = MOC) PLATELET ESTIMATE (test code = PLTEST) PLATELET MORPHOLOGY (test code = PLTMORPH) CBC W/MANUAL [id number] 06:13:00* Test Item Value Reference Range Interpretation Comments WHITE BLOOD CELL (test code = WBC) 15.6 K/mm3 4.5-12.5 H RED BLOOD CELL (test code = RBC) 2.65 mill/mm3 4.0-5.8 L HEMOGLOBIN (test code = HGB) 7.4 gram/dL 13.0-17.5 L HEMATOCRIT (test code = HCT) 23.8 % 42.0-52.0 L MEAN CELL VOLUME (test code = MCV) 89.8 fL 80-98 N MEAN CELL HGB (test code = MCH) 27.9 picogram 27.0-33.0 N MEAN CELL HGB CONCETRATION (test code = MCHC) 31.1 gram/dL 33.0-36. 0 L RED CELL DISTRIBUTION WIDTH (test code = RDW) 19.4 % 11.6-16. 2 H RED CELL DISTRIBUTION WIDTH SD (test code = RDW-SD) 63.7 fL 37 .0-51.0 H PLATELET COUNT (test code = PLT) 255 K/mm3 150-450 N MEAN PLATELET VOLUME (test code = MPV) 10.0 fL 6.7-11.0 N NEUTROPHIL % (test code = NT%) 47.7 % 39.0-69.0 N IMMATURE GRANULOCYTE % (test code = IG%) 32.2 % 0.0-5.0 H "The appearance of immature granulocytes (myelocytes,pro-myelocytes, meta-myelocytes) in the peripheral blood ofnon- individuals can indicate a response toinfection, inflammation, or other stimulus to the bonemarrow" LYMPHOCYTE % (test code = LY%) 7.1 % 25.0-55.0 L MONOCYTE % (test code = MO%) 11.1 % 0.0-10.0 H EOSINOPHIL % (test code = EO%) 1.6 % 0.0-5.0 N BASOPHIL % (test code = BA%) 0.3 % 0.0-1.0 N NUCLEATED RBC % (test code = NRBC%) 0.0 % 0-0 N NEUTROPHIL # (test code = NT#) 7.46 K/mm3 1.8-7.7 N IMMATURE GRANULOCYTE # (test code = IG#) 5.03 x10 3/uL 0-0.03 H LYMPHOCYTE # (test code = LY#) 1.11 K/mm3 1.0-5.0 N MONOCYTE # (test code = MO#) 1.73 K/mm3 0-0.8 H EOSINOPHIL # (test code = EO#) 0.25 K/mm3 0.0-0.5 N BASOPHIL # (test code = BA#) 0.05 K/mm3 0.0-0.2 N NUCLEATED RBC # (test code = NRBC#) 0.00 K/mm3 0.0-0.1 N MANUAL DIFF REQUIRED (test code = MDIFF) DIFF NEEDED STAIN ACCEPTABILITY (test code = STN ACCEPTABLE) TOTAL CELLS COUNTED (test code = TCC) #CELLS SEGMENTED NEUTROPHILS (test code = SEG) % 39-69 LYMPHOCYTE (test code = LYMPH) % 25-55 MONOCYTE (test code = MON) % 0-10 EOSINOPHIL (test code = EOS) % 0.0-5.0 CABOT RINGS (test code = CAB) MORPHOLOGY COMMENT (test code = MOC) PLATELET ESTIMATE (test code = PLTEST) PLATELET MORPHOLOGY (test code = PLTMORPH) - XR SWLW FUNC W/C [id number] 14:05:00 FAX: Sammy Mccain MD [place]: St: ADM Name: [place] [facility] : [birth year] Age/S: 59/M [address] [facility] Unit #: [id number] Loc: V.[address] [place] [address] Phys: Sammy Lopez MD Acct: [id number] Dis Date: Status: ADM IN PHONE #: [phone] Exam Date: 12/11/2019 1340 FAX #: [phone] Reason: COUGHING WHILE DRINKING EXAMS: CPT CODE: [id number] XR SWLW FUNC W/C V 42168 CLINICAL HISTORY: COUGHING WHILE D RINKING TECHNIQUE: Fluoroscopic swallow function evaluation in con junction with speech therapy. Fluoroscopy time and dose are not available due to machine malfunction IMPRESSION: H andling of varying consistencies of barium were evaluated. There is aspi ration and penetration of thin, nectar consistency, and honey consistenc y barium. There is also penetration without aspiration of puree consiste ncy barium. Please see separate speech pathology report for complete dis cussion. Location: [facility] at 1405 Reported and signed by: Lico Garcia MD CC: Sammy Lopez MD Technologist: RT KENYA(Sedrick) Trnscpasquale Date/Time/By: 12/11/2019 (3254) : By: [email or web address] Or ig Print D/T: S: 12/11/2019 (1841) PAGE 1 Signed Report FE W/TOTAL IRON BINDING CAP.2019-12-11 09:02:00* Test Item Value Reference Range Interpretation Comments SERUM IRON (test code = IRON) 58 ug/dL 50-175 N TOTAL IRON BINDING CAPACITY (test code = TIBC) 116 mcg/dL 250-450 L IRON SATURATION (test code = FESAT) 50.00 % 13-45 H VITAMIN [id number] 09:02:00* Test Item Value Reference Range Interpretation Comments VITAMIN B12 (test code = VITB12) 1884 pg/mL 193-986 H FOLIC [id number] 09:02:00* Test Item Value Reference Range Interpretation Comments FOLIC ACID (test code = FOL) 5.9 ng/mL 3.10-17.50 N - XR ABDOMEN AP 1 [id number] 08:43:00 FAX: Farhad Bhakta MD [phone] [place]: St: [facility] FAX: Sammy Mccain MD Name: [place] [facility] : 1960 Age/S: 59/M [address] [facility] Unit #: [id number] Loc: V.5 [place] [address] Phys: Farhad Peña MD Acct: [id number] Dis Date: Status: ADM IN PHONE #: [phone] Exam Date: 12/11/2019905 FAX #: [phone] Reason: ILEUS EXAMS: CPT CODE: [id number] XR ABDOMEN AP 1 V [id number] HISTORY: Ileus. COMPARISON: Previous day. Location: [facility]. Moderate diffuse distention of the entire sma ll and large bowel appear slightly improved from previous exam. Continued close follow-up. No pathologic calcifications. 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 Far inferior pelvis is not included slightly limiting skyler luation. IMPRESSION: Slight improvement in the moderate diffuse distention of the entire small and large bowel likely ileus. Close follow-up. Electronically Signed by Brandon ludwig 12/11/2019 at 0843 Reported and signed by: Saw antoine M.D. CC: Farhad Peña MD; Sammy Lopez MD Technologist: RT Tino(Sedrick) Trnscrd Date/Time/By: 12/11/2019 (0843) : By: [email or web address] Orig Print D/T : S: 12/11/2019 (0906) PAGE 1 Sig veronica Report COMPREHENSIVE METABOLIC [id number] 07:21:00* Test Item Value Reference Range Interpretation Comments SODIUM (test code = NA) 141 mmol/L 136-145 N POTASSIUM (test code = K) 3.0 mmol/L 3.5-5.1 L CHLORIDE (test code = CL) 109.0 mmol/L 98-107 H CARBON DIOXIDE (test code = CO2) 25.0 mmol/L 21-32 N ANION GAP (test code = GAP) 10.0 10-20 N GLUCOSE (test code = GLU) 72 mg/dL 74-106 L BLOOD UREA NITROGEN (test code = BUN) 37 mg/dL 7-18 H GLOMERULAR FILTRATION RATE (test code = GFR) > 60 mL/min >=60 Estimated GFR by using Modified MDRD formula.Chronic kidney disease is defined as either kidney damageor GFR <60 mL/min/1.73 m2 for >3 months. CREATININE (test code = CREAT) 1.00 mg/dL 0.7-1.3 N BUN/CREATININE RATIO (test code = BUN/CREA) 38.1 10-20 H TOTAL PROTEIN (test code = PROT) 5.4 gram/dL 6.4-8.2 L ALBUMIN (test code = ALB) 2.4 g/dL 3.4-5.0 L GLOBULIN (test code = GLOB) 3.0 gram/dL 2.7-4.2 N ALBUMIN/GLOBULIN RATIO (test code = A/G) 0.8 0.75-1.50 N CALCIUM (test code = CA) 8.2 mg/dL 8.5-10.1 L BILIRUBIN TOTAL (test code = BILT) 0.30 mg/dL 0.0-1.0 N SGOT/AST (test code = AST) 11 IUnit/L 15-37 L SGPT/ALT (test code = ALT) < 6 IUnit/L 12-78 L ALKALINE PHOSPHATASE TOTAL (test code = ALKP) 76 IUnit/L 45-117 N Note change in reference range due to change in reagent. [id number] 07:21:00* Test Item Value Reference Range Interpretation Comments PHOSPHORUS (test code = PHOS) 1.8 mg/dL 2.5-4.9 L [id number] 07:21:00* Test Item Value Reference Range Interpretation Comments MAGNESIUM (test code = MAG) 1.9 mg/dL 1.8-2.4 N CALCIUM [id number] 07:21:00* Test Item Value Reference Range Interpretation Comments CALCIUM IONIZED (test code = RADHA) 1.25 mmol/L 1.12-1.32 N COMPREHENSIVE METABOLIC [id number] 06:50:00* Test Item Value Reference Range Interpretation Comments SODIUM (test code = NA) 141 mmol/L 136-145 N POTASSIUM (test code = K) 3.0 mmol/L 3.5-5.1 L CHLORIDE (test code = CL) 109.0 mmol/L 98-107 H CARBON DIOXIDE (test code = CO2) 25.0 mmol/L 21-32 N ANION GAP (test code = GAP) 10.0 10-20 N GLUCOSE (test code = GLU) 72 mg/dL 74-106 L BLOOD UREA NITROGEN (test code = BUN) 37 mg/dL 7-18 H GLOMERULAR FILTRATION RATE (test code = GFR) > 60 mL/min >=60 Estimated GFR by using Modified MDRD formula.Chronic kidney disease is defined as either kidney damageor GFR <60 mL/min/1.73 m2 for >3 months. CREATININE (test code = CREAT) 1.00 mg/dL 0.7-1.3 N BUN/CREATININE RATIO (test code = BUN/CREA) 38.1 10-20 H TOTAL PROTEIN (test code = PROT) 5.4 gram/dL 6.4-8.2 L ALBUMIN (test code = ALB) 2.4 g/dL 3.4-5.0 L GLOBULIN (test code = GLOB) 3.0 gram/dL 2.7-4.2 N ALBUMIN/GLOBULIN RATIO (test code = A/G) 0.8 0.75-1.50 N CALCIUM (test code = CA) 8.2 mg/dL 8.5-10.1 L BILIRUBIN TOTAL (test code = BILT) 0.30 mg/dL 0.0-1.0 N SGOT/AST (test code = AST) 11 IUnit/L 15-37 L SGPT/ALT (test code = ALT) < 6 IUnit/L 12-78 L ALKALINE PHOSPHATASE TOTAL (test code = ALKP) 76 IUnit/L 45-117 N Note change in reference range due to change in reagent. [id number] 06:50:00* Test Item Value Reference Range Interpretation Comments PHOSPHORUS (test code = PHOS) 1.8 mg/dL 2.5-4.9 L [id number] 06:50:00* Test Item Value Reference Range Interpretation Comments MAGNESIUM (test code = MAG) 1.9 mg/dL 1.8-2.4 N CALCIUM [id number] 06:50:00* Test Item Value Reference Range Interpretation Comments CALCIUM IONIZED (test code = RADHA) mmol/L 1.12-1.32 COMPREHENSIVE METABOLIC [id number] 06:43:00* Test Item Value Reference Range Interpretation Comments SODIUM (test code = NA) 141 mmol/L 136-145 N POTASSIUM (test code = K) 3.0 mmol/L 3.5-5.1 L CHLORIDE (test code = CL) 109.0 mmol/L 98-107 H CARBON DIOXIDE (test code = CO2) mmol/L 21-32 ANION GAP (test code = GAP) 10-20 GLUCOSE (test code = GLU) mg/dL 74-106 BLOOD UREA NITROGEN (test code = BUN) mg/dL 7-18 GLOMERULAR FILTRATION RATE (test code = GFR) mL/min >=60 CREATININE (test code = CREAT) mg/dL 0.7-1.3 BUN/CREATININE RATIO (test code = BUN/CREA) 10-20 TOTAL PROTEIN (test code = PROT) gram/dL 6.4-8.2 ALBUMIN (test code = ALB) g/dL 3.4-5.0 GLOBULIN (test code = GLOB) gram/dL 2.7-4.2 ALBUMIN/GLOBULIN RATIO (test code = A/G) 0.75-1.50 CALCIUM (test code = CA) mg/dL 8.5-10.1 BILIRUBIN TOTAL (test code = BILT) mg/dL 0.0-1.0 SGOT/AST (test code = AST) IUnit/L 15-37 SGPT/ALT (test code = ALT) IUnit/L 12-78 ALKALINE PHOSPHATASE TOTAL (test code = ALKP) IUnit/L 45-117 [id number] 06:43:00* Test Item Value Reference Range Interpretation Comments PHOSPHORUS (test code = PHOS) mg/dL 2.5-4.9 [id number] 06:43:00* Test Item Value Reference Range Interpretation Comments MAGNESIUM (test code = MAG) mg/dL 1.8-2.4 CALCIUM [id number] 06:43:00* Test Item Value Reference Range Interpretation Comments CALCIUM IONIZED (test code = RADHA) mmol/L 1.12-1.32 RETICULOCYTE [id number] 06:29:00* Test Item Value Reference Range Interpretation Comments RETICULOCYTE COUNT (test code = RETICT) 0.83 % 0.5-2.0 N RETIC COUNT ABSOLUTE (test code = RET#) 0.019 mill/mm3 0.016-0.095 N IMMATURE RETICULOCYTE FRACTION (test code = IRF) 23.5 % 2.3-1 3.4 H Values above normal range indicate an increase in RBCcellular response from bone marrow. RETICULOCYTE HGB EQUIVALENT (test code = RETHE) 29.4 pg 28.2-3 5.7 N RET-He is a direct estimate of recent functionalavailability of iron in the cell, therefore, decreasedRET-He is indicative of iron deficiency. CBC W/MANUAL [id number] 06:19:00* Test Item Value Reference Range Interpretation Comments WHITE BLOOD CELL (test code = WBC) 14.6 K/mm3 4.5-12.5 H RED BLOOD CELL (test code = RBC) 2.39 mill/mm3 4.0-5.8 L HEMOGLOBIN (test code = HGB) 6.6 gram/dL 13.0-17.5 L HEMATOCRIT (test code = HCT) 20.7 % 42.0-52.0 LL Results called to [id number] by SEVEN 12/11/19 0604Critical results verified and read back by Nurse? Y MEAN CELL VOLUME (test code = MCV) 86.6 fL 80-98 N MEAN CELL HGB (test code = MCH) 27.6 picogram 27.0-33.0 N MEAN CELL HGB CONCETRATION (test code = MCHC) 31.9 gram/dL 33.0-36. 0 L RED CELL DISTRIBUTION WIDTH (test code = RDW) 18.9 % 11.6-16. 2 H RED CELL DISTRIBUTION WIDTH SD (test code = RDW-SD) 60.1 fL 37 .0-51.0 H PLATELET COUNT (test code = PLT) 283 K/mm3 150-450 N MEAN PLATELET VOLUME (test code = MPV) 9.9 fL 6.7-11.0 N NEUTROPHIL % (test code = NT%) 59.7 % 39.0-69.0 N IMMATURE GRANULOCYTE % (test code = IG%) 20.0 % 0.0-5.0 H "The appearance of immature granulocytes (myelocytes,pro-myelocytes, meta-myelocytes) in the peripheral blood ofnon- individuals can indicate a response toinfection, inflammation, or other stimulus to the bonemarrow" LYMPHOCYTE % (test code = LY%) 6.9 % 25.0-55.0 L MONOCYTE % (test code = MO%) 11.0 % 0.0-10.0 H EOSINOPHIL % (test code = EO%) 1.6 % 0.0-5.0 N BASOPHIL % (test code = BA%) 0.8 % 0.0-1.0 N NUCLEATED RBC % (test code = NRBC%) 0.0 % 0-0 N NEUTROPHIL # (test code = NT#) 8.74 K/mm3 1.8-7.7 H IMMATURE GRANULOCYTE # (test code = IG#) 2.93 x10 3/uL 0-0.03 H LYMPHOCYTE # (test code = LY#) 1.01 K/mm3 1.0-5.0 N MONOCYTE # (test code = MO#) 1.61 K/mm3 0-0.8 H EOSINOPHIL # (test code = EO#) 0.24 K/mm3 0.0-0.5 N BASOPHIL # (test code = BA#) 0.11 K/mm3 0.0-0.2 N NUCLEATED RBC # (test code = NRBC#) 0.00 K/mm3 0.0-0.1 N MANUAL DIFF REQUIRED (test code = MDIFF) DIFF NEEDED STAIN ACCEPTABILITY (test code = STN ACCEPTABLE) STAIN ACCEPTABLE TOTAL CELLS COUNTED (test code = TCC) 115 #CELLS SEGMENTED NEUTROPHILS (test code = SEG) 73.0 % 39-69 H BAND NEUTROPHIL (test code = BAND) 0 % 0-10 N LYMPHOCYTE (test code = LYMPH) 8.7 % 25-55 L REACTIVE LYMPH (test code = RELYMPH) 0 % MONOCYTE (test code = MON) 9.6 % 0-10 N EOSINOPHIL (test code = EOS) 1.7 % 0.0-5.0 N BASOPHIL (test code = BASO) 0 % 0-1.0 N METAMYELOCYTE (test code = META) 2.6 % 0-0 H MYELOCYTE (test code = MYELO) 4.4 % 0.0-0.0 H PROMYELOCYTE (test code = PROM) 0 % 0-0 N POLYCHROMASIA (test code = POLC) 1+ POIKILOCYTOSIS (test code = POIK) 2+ ANISOCYTOSIS (test code = ANISO) 1+ MICROCYTOSIS (test code = MICR) 1+ ACANTHOCYTES (test code = ACAN) 1+ NONE OVALOCYTES (test code = OVAL) 1+ MORPHOLOGY COMMENT (test code = MOC) TEST NOT PERFORMED PLATELET ESTIMATE (test code = PLTEST) ADEQUATE PLATELET MORPHOLOGY (test code = PLTMORPH) NORMAL IMMATURE FORMS (test code = IMMAT) 0 % 0-0 N CBC W/MANUAL [id number] 06:05:00* Test Item Value Reference Range Interpretation Comments WHITE BLOOD CELL (test code = WBC) 14.6 K/mm3 4.5-12.5 H RED BLOOD CELL (test code = RBC) 2.39 mill/mm3 4.0-5.8 L HEMOGLOBIN (test code = HGB) 6.6 gram/dL 13.0-17.5 L HEMATOCRIT (test code = HCT) 20.7 % 42.0-52.0 LL Results called to [id number] by SEVEN 12/11/19 0604Critical results verified and read back by Nurse? Y MEAN CELL VOLUME (test code = MCV) 86.6 fL 80-98 N MEAN CELL HGB (test code = MCH) 27.6 picogram 27.0-33.0 N MEAN CELL HGB CONCETRATION (test code = MCHC) 31.9 gram/dL 33.0-36. 0 L RED CELL DISTRIBUTION WIDTH (test code = RDW) 18.9 % 11.6-16. 2 H RED CELL DISTRIBUTION WIDTH SD (test code = RDW-SD) 60.1 fL 37 .0-51.0 H PLATELET COUNT (test code = PLT) 283 K/mm3 150-450 N MEAN PLATELET VOLUME (test code = MPV) 9.9 fL 6.7-11.0 N NEUTROPHIL % (test code = NT%) 59.7 % 39.0-69.0 N IMMATURE GRANULOCYTE % (test code = IG%) 20.0 % 0.0-5.0 H "The appearance of immature granulocytes (myelocytes,pro-myelocytes, meta-myelocytes) in the peripheral blood ofnon- individuals can indicate a response toinfection, inflammation, or other stimulus to the bonemarrow" LYMPHOCYTE % (test code = LY%) 6.9 % 25.0-55.0 L MONOCYTE % (test code = MO%) 11.0 % 0.0-10.0 H EOSINOPHIL % (test code = EO%) 1.6 % 0.0-5.0 N BASOPHIL % (test code = BA%) 0.8 % 0.0-1.0 N NUCLEATED RBC % (test code = NRBC%) 0.0 % 0-0 N NEUTROPHIL # (test code = NT#) 8.74 K/mm3 1.8-7.7 H IMMATURE GRANULOCYTE # (test code = IG#) 2.93 x10 3/uL 0-0.03 H LYMPHOCYTE # (test code = LY#) 1.01 K/mm3 1.0-5.0 N MONOCYTE # (test code = MO#) 1.61 K/mm3 0-0.8 H EOSINOPHIL # (test code = EO#) 0.24 K/mm3 0.0-0.5 N BASOPHIL # (test code = BA#) 0.11 K/mm3 0.0-0.2 N NUCLEATED RBC # (test code = NRBC#) 0.00 K/mm3 0.0-0.1 N MANUAL DIFF REQUIRED (test code = MDIFF) DIFF NEEDED STAIN ACCEPTABILITY (test code = STN ACCEPTABLE) TOTAL CELLS COUNTED (test code = TCC) #CELLS SEGMENTED NEUTROPHILS (test code = SEG) % 39-69 LYMPHOCYTE (test code = LYMPH) % 25-55 MONOCYTE (test code = MON) % 0-10 EOSINOPHIL (test code = EOS) % 0.0-5.0 CABOT RINGS (test code = CAB) MORPHOLOGY COMMENT (test code = MOC) PLATELET ESTIMATE (test code = PLTEST) PLATELET MORPHOLOGY (test code = PLTMORPH) CBC W/MANUAL [id number] 06:05:00* Test Item Value Reference Range Interpretation Comments WHITE BLOOD CELL (test code = WBC) 14.6 K/mm3 4.5-12.5 H RED BLOOD CELL (test code = RBC) 2.39 mill/mm3 4.0-5.8 L HEMOGLOBIN (test code = HGB) 6.6 gram/dL 13.0-17.5 L HEMATOCRIT (test code = HCT) 20.7 % 42.0-52.0 LL Results called to [id number] by GLADYSBertin 12/11/19 0604Critical results verified and read back by Nurse? Y MEAN CELL VOLUME (test code = MCV) 86.6 fL 80-98 N MEAN CELL HGB (test code = MCH) 27.6 picogram 27.0-33.0 N MEAN CELL HGB CONCETRATION (test code = MCHC) 31.9 gram/dL 33.0-36. 0 L RED CELL DISTRIBUTION WIDTH (test code = RDW) 18.9 % 11.6-16. 2 H RED CELL DISTRIBUTION WIDTH SD (test code = RDW-SD) 60.1 fL 37 .0-51.0 H PLATELET COUNT (test code = PLT) 283 K/mm3 150-450 N MEAN PLATELET VOLUME (test code = MPV) 9.9 fL 6.7-11.0 N NEUTROPHIL % (test code = NT%) 59.7 % 39.0-69.0 N IMMATURE GRANULOCYTE % (test code = IG%) 20.0 % 0.0-5.0 H "The appearance of immature granulocytes (myelocytes,pro-myelocytes, meta-myelocytes) in the peripheral blood ofnon- individuals can indicate a response toinfection, inflammation, or other stimulus to the bonemarrow" LYMPHOCYTE % (test code = LY%) 6.9 % 25.0-55.0 L MONOCYTE % (test code = MO%) 11.0 % 0.0-10.0 H EOSINOPHIL % (test code = EO%) 1.6 % 0.0-5.0 N BASOPHIL % (test code = BA%) 0.8 % 0.0-1.0 N NUCLEATED RBC % (test code = NRBC%) 0.0 % 0-0 N NEUTROPHIL # (test code = NT#) 8.74 K/mm3 1.8-7.7 H IMMATURE GRANULOCYTE # (test code = IG#) 2.93 x10 3/uL 0-0.03 H LYMPHOCYTE # (test code = LY#) 1.01 K/mm3 1.0-5.0 N MONOCYTE # (test code = MO#) 1.61 K/mm3 0-0.8 H EOSINOPHIL # (test code = EO#) 0.24 K/mm3 0.0-0.5 N BASOPHIL # (test code = BA#) 0.11 K/mm3 0.0-0.2 N NUCLEATED RBC # (test code = NRBC#) 0.00 K/mm3 0.0-0.1 N MANUAL DIFF REQUIRED (test code = MDIFF) DIFF NEEDED STAIN ACCEPTABILITY (test code = STN ACCEPTABLE) TOTAL CELLS COUNTED (test code = TCC) #CELLS SEGMENTED NEUTROPHILS (test code = SEG) % 39-69 LYMPHOCYTE (test code = LYMPH) % 25-55 MONOCYTE (test code = MON) % 0-10 EOSINOPHIL (test code = EOS) % 0.0-5.0 CABOT RINGS (test code = CAB) MORPHOLOGY COMMENT (test code = MOC) PLATELET ESTIMATE (test code = PLTEST) PLATELET MORPHOLOGY (test code = PLTMORPH) CBC W/MANUAL [id number] 06:05:00* Test Item Value Reference Range Interpretation Comments WHITE BLOOD CELL (test code = WBC) 14.6 K/mm3 4.5-12.5 H RED BLOOD CELL (test code = RBC) 2.39 mill/mm3 4.0-5.8 L HEMOGLOBIN (test code = HGB) 6.6 gram/dL 13.0-17.5 L HEMATOCRIT (test code = HCT) 20.7 % 42.0-52.0 LL Results called to [id number] by SEVEN 12/11/19 0604Critical results verified and read back by Nurse? Y MEAN CELL VOLUME (test code = MCV) 86.6 fL 80-98 N MEAN CELL HGB (test code = MCH) 27.6 picogram 27.0-33.0 N MEAN CELL HGB CONCETRATION (test code = MCHC) 31.9 gram/dL 33.0-36. 0 L RED CELL DISTRIBUTION WIDTH (test code = RDW) 18.9 % 11.6-16. 2 H RED CELL DISTRIBUTION WIDTH SD (test code = RDW-SD) 60.1 fL 37 .0-51.0 H PLATELET COUNT (test code = PLT) 283 K/mm3 150-450 N MEAN PLATELET VOLUME (test code = MPV) 9.9 fL 6.7-11.0 N NEUTROPHIL % (test code = NT%) 59.7 % 39.0-69.0 N IMMATURE GRANULOCYTE % (test code = IG%) 20.0 % 0.0-5.0 H "The appearance of immature granulocytes (myelocytes,pro-myelocytes, meta-myelocytes) in the peripheral blood ofnon- individuals can indicate a response toinfection, inflammation, or other stimulus to the bonemarrow" LYMPHOCYTE % (test code = LY%) 6.9 % 25.0-55.0 L MONOCYTE % (test code = MO%) 11.0 % 0.0-10.0 H EOSINOPHIL % (test code = EO%) 1.6 % 0.0-5.0 N BASOPHIL % (test code = BA%) 0.8 % 0.0-1.0 N NUCLEATED RBC % (test code = NRBC%) 0.0 % 0-0 N NEUTROPHIL # (test code = NT#) 8.74 K/mm3 1.8-7.7 H IMMATURE GRANULOCYTE # (test code = IG#) 2.93 x10 3/uL 0-0.03 H LYMPHOCYTE # (test code = LY#) 1.01 K/mm3 1.0-5.0 N MONOCYTE # (test code = MO#) 1.61 K/mm3 0-0.8 H EOSINOPHIL # (test code = EO#) 0.24 K/mm3 0.0-0.5 N BASOPHIL # (test code = BA#) 0.11 K/mm3 0.0-0.2 N NUCLEATED RBC # (test code = NRBC#) 0.00 K/mm3 0.0-0.1 N MANUAL DIFF REQUIRED (test code = MDIFF) DIFF NEEDED STAIN ACCEPTABILITY (test code = STN ACCEPTABLE) TOTAL CELLS COUNTED (test code = TCC) #CELLS SEGMENTED NEUTROPHILS (test code = SEG) % 39-69 LYMPHOCYTE (test code = LYMPH) % 25-55 MONOCYTE (test code = MON) % 0-10 EOSINOPHIL (test code = EOS) % 0.0-5.0 MORPHOLOGY COMMENT (test code = MOC) PLATELET ESTIMATE (test code = PLTEST) PLATELET MORPHOLOGY (test code = PLTMORPH) CBC W/MANUAL [id number] 06:05:00* Test Item Value Reference Range Interpretation Comments WHITE BLOOD CELL (test code = WBC) 14.6 K/mm3 4.5-12.5 H RED BLOOD CELL (test code = RBC) 2.39 mill/mm3 4.0-5.8 L HEMOGLOBIN (test code = HGB) 6.6 gram/dL 13.0-17.5 L HEMATOCRIT (test code = HCT) 20.7 % 42.0-52.0 Results called to [id number] by SEVEN 12/11/19 0604Critical results verified and read back by Nurse? Y MEAN CELL VOLUME (test code = MCV) 86.6 fL 80-98 N MEAN CELL HGB (test code = MCH) 27.6 picogram 27.0-33.0 N MEAN CELL HGB CONCETRATION (test code = MCHC) 31.9 gram/dL 33.0-36. 0 L RED CELL DISTRIBUTION WIDTH (test code = RDW) 18.9 % 11.6-16. 2 H RED CELL DISTRIBUTION WIDTH SD (test code = RDW-SD) 60.1 fL 37 .0-51.0 H PLATELET COUNT (test code = PLT) 283 K/mm3 150-450 N MEAN PLATELET VOLUME (test code = MPV) 9.9 fL 6.7-11.0 N NEUTROPHIL % (test code = NT%) 59.7 % 39.0-69.0 N IMMATURE GRANULOCYTE % (test code = IG%) 20.0 % 0.0-5.0 H "The appearance of immature granulocytes (myelocytes,pro-myelocytes, meta-myelocytes) in the peripheral blood ofnon- individuals can indicate a response toinfection, inflammation, or other stimulus to the bonemarrow" LYMPHOCYTE % (test code = LY%) 6.9 % 25.0-55.0 L MONOCYTE % (test code = MO%) 11.0 % 0.0-10.0 H EOSINOPHIL % (test code = EO%) 1.6 % 0.0-5.0 N BASOPHIL % (test code = BA%) 0.8 % 0.0-1.0 N NUCLEATED RBC % (test code = NRBC%) 0.0 % 0-0 N NEUTROPHIL # (test code = NT#) 8.74 K/mm3 1.8-7.7 H IMMATURE GRANULOCYTE # (test code = IG#) 2.93 x10 3/uL 0-0.03 H LYMPHOCYTE # (test code = LY#) 1.01 K/mm3 1.0-5.0 N MONOCYTE # (test code = MO#) 1.61 K/mm3 0-0.8 H EOSINOPHIL # (test code = EO#) 0.24 K/mm3 0.0-0.5 N BASOPHIL # (test code = BA#) 0.11 K/mm3 0.0-0.2 N NUCLEATED RBC # (test code = NRBC#) 0.00 K/mm3 0.0-0.1 N MANUAL DIFF REQUIRED (test code = MDIFF) DIFF NEEDED STAIN ACCEPTABILITY (test code = STN ACCEPTABLE) TOTAL CELLS COUNTED (test code = TCC) #CELLS SEGMENTED NEUTROPHILS (test code = SEG) % 39-69 LYMPHOCYTE (test code = LYMPH) % 25-55 MONOCYTE (test code = MON) % 0-10 MORPHOLOGY COMMENT (test code = MOC) PLATELET ESTIMATE (test code = PLTEST) PLATELET MORPHOLOGY (test code = PLTMORPH) CBC W/MANUAL [id number] 06:05:00* Test Item Value Reference Range Interpretation Comments WHITE BLOOD CELL (test code = WBC) 14.6 K/mm3 4.5-12.5 H RED BLOOD CELL (test code = RBC) 2.39 mill/mm3 4.0-5.8 L HEMOGLOBIN (test code = HGB) 6.6 gram/dL 13.0-17.5 L HEMATOCRIT (test code = HCT) 20.7 % 42.0-52.0 LL Results called to [id number] by SEVEN 12/11/19 0604Critical results verified and read back by Nurse? Y MEAN CELL VOLUME (test code = MCV) 86.6 fL 80-98 N MEAN CELL HGB (test code = MCH) 27.6 picogram 27.0-33.0 N MEAN CELL HGB CONCETRATION (test code = MCHC) 31.9 gram/dL 33.0-36. 0 L RED CELL DISTRIBUTION WIDTH (test code = RDW) 18.9 % 11.6-16. 2 H RED CELL DISTRIBUTION WIDTH SD (test code = RDW-SD) 60.1 fL 37 .0-51.0 H PLATELET COUNT (test code = PLT) 283 K/mm3 150-450 N MEAN PLATELET VOLUME (test code = MPV) 9.9 fL 6.7-11.0 N NEUTROPHIL % (test code = NT%) 59.7 % 39.0-69.0 N IMMATURE GRANULOCYTE % (test code = IG%) 20.0 % 0.0-5.0 H "The appearance of immature granulocytes (myelocytes,pro-myelocytes, meta-myelocytes) in the peripheral blood ofnon- individuals can indicate a response toinfection, inflammation, or other stimulus to the bonemarrow" LYMPHOCYTE % (test code = LY%) 6.9 % 25.0-55.0 L MONOCYTE % (test code = MO%) 11.0 % 0.0-10.0 H EOSINOPHIL % (test code = EO%) 1.6 % 0.0-5.0 N BASOPHIL % (test code = BA%) 0.8 % 0.0-1.0 N NUCLEATED RBC % (test code = NRBC%) 0.0 % 0-0 N NEUTROPHIL # (test code = NT#) 8.74 K/mm3 1.8-7.7 H IMMATURE GRANULOCYTE # (test code = IG#) 2.93 x10 3/uL 0-0.03 H LYMPHOCYTE # (test code = LY#) 1.01 K/mm3 1.0-5.0 N MONOCYTE # (test code = MO#) 1.61 K/mm3 0-0.8 H EOSINOPHIL # (test code = EO#) 0.24 K/mm3 0.0-0.5 N BASOPHIL # (test code = BA#) 0.11 K/mm3 0.0-0.2 N NUCLEATED RBC # (test code = NRBC#) 0.00 K/mm3 0.0-0.1 N MANUAL DIFF REQUIRED (test code = MDIFF) DIFF NEEDED STAIN ACCEPTABILITY (test code = STN ACCEPTABLE) TOTAL CELLS COUNTED (test code = TCC) #CELLS SEGMENTED NEUTROPHILS (test code = SEG) % 39-69 LYMPHOCYTE (test code = LYMPH) % 25-55 MONOCYTE (test code = MON) % 0-10 EOSINOPHIL (test code = EOS) % 0.0-5.0 CABOT RINGS (test code = CAB) MORPHOLOGY COMMENT (test code = MOC) PLATELET ESTIMATE (test code = PLTEST) PLATELET MORPHOLOGY (test code = PLTMORPH) - XR ABDOMEN AP 1 [id number] 07:50:00 FAX: Farhad Bhakta MD [phone] [place]: St: [facility] FAX: Sammy Mccain MD Name: [place] [facility] : 1960 Age/S: 59/M [address] Unit #: [id number] Loc: [address] [address] Phys: Farhad Peña MD Acct: [id number] Dis Date: Status: ADM IN PHONE #: [phone] Exam Date: 12/10/2019 0330 FAX #: [phone] Reason: ILEUS EXAMS: CPT CODE: [id number] XR ABDOMEN AP 1 V [id number] HISTORY: ILEUS TECHNIQUE: AP abdomen x-ray COMPARISON: Previous day FINDINGS: Persistent gaseous d istention of the colon. Improved small bowel gas. Enteric tube positioned within the stomach. No intra-abdominal mass effect. No abnormal calcificat ions are observed. Lumbar spondylosis and levoscoliosis. IMPRESSION: Persistent gaseous distention of the colon. Imp roved small bowel gas. LOCATION: [facility] at 0750 Reported and signed by: Cassia Ruiz D.O. CC: Farhad Peña MD; Sammy Lopez MD Technologi st: Steve Pink RT(R); ARNOL TEE RT(R) Trnscrd Date/Time/By: 12/10/2019 (0750) : By: [email or web address] Orig Print D/T: S: 12/10/2019 (0754 ) PAGE 1 Signed Report B-TYPE NATRIURETIC [id number] 05:17:00* Test Item Value Reference Range Interpretation Comments B-TYPE NATRIURETIC PEPTIDE (test code = BNP) 116.11 pgram/mL 0-100 H PROTHROMBIN [id number] 03:48:00* Test Item Value Reference Range Interpretation Comments PROTHROMBIN TIME PATIENT (test code = PTP) 11.9 seconds 9.0-14.0 N INTERNATIONAL NORMAL RATIO (test code = INR) 1.0 0.8-1.2 N The therapeutic range for oral anticoagulant therapy formost indications is an international normalized ratio (INR)of between 2.0 and 3.0. The recommended therapeutic INRrange for various clinical situations is listed below: Clinical Situation INR range Pulmonary e mbolism treatment (2.0-3.0)Venous thrombosis treatmentVenous thrombosis prophylaxis (high risk surgery)Prevention of systemic embolism from: Acute myocardial infarction Valvular heart disease Atrial fibrillation Mechanical prosthetic heart valves (2.5-3.5) IS PATIENT ON ANTICOAGULANTS? NTHROMBOPLASTIN TIME [id number] 03:48:00* Test Item Value Reference Range Interpretation Comments THROMBOPLASTIN TIME PARTIAL (test code = PTT) 25.3 seconds 23.0-37. 0 N IS PATIENT ON ANTICOAGULANTS? [id number] 03:48:00* Test Item Value Reference Range Interpretation Comments FIBRINOGEN (test code = FIB) 229 mg/dL 200-400 N IS PATIENT ON ANTICOAGULANTS? NCOMPREHENSIVE METABOLIC [id number] 03:41:00 * Test Item Value Reference Range Interpretation Comments SODIUM (test code = NA) 139 mmol/L 136-145 N POTASSIUM (test code = K) 3.1 mmol/L 3.5-5.1 L CHLORIDE (test code = CL) 108.0 mmol/L 98-107 H CARBON DIOXIDE (test code = CO2) 25.0 mmol/L 21-32 N ANION GAP (test code = GAP) 9.1 10-20 L GLUCOSE (test code = GLU) 74 mg/dL 74-106 N BLOOD UREA NITROGEN (test code = BUN) 49 mg/dL 7-18 H GLOMERULAR FILTRATION RATE (test code = GFR) 52 mL/min >=60 Estimated GFR by using Modified MDRD formula.Chronic kidney disease is defined as either kidney damageor GFR <60 mL/min/1.73 m2 for >3 months. CREATININE (test code = CREAT) 1.40 mg/dL 0.7-1.3 H BUN/CREATININE RATIO (test code = BUN/CREA) 35.3 10-20 H TOTAL PROTEIN (test code = PROT) 5.1 gram/dL 6.4-8.2 L ALBUMIN (test code = ALB) 2.0 g/dL 3.4-5.0 L GLOBULIN (test code = GLOB) 3.1 gram/dL 2.7-4.2 N ALBUMIN/GLOBULIN RATIO (test code = A/G) 0.6 0.75-1.50 L CALCIUM (test code = CA) 8.0 mg/dL 8.5-10.1 L BILIRUBIN TOTAL (test code = BILT) 0.20 mg/dL 0.0-1.0 N SGOT/AST (test code = AST) 7 IUnit/L 15-37 L SGPT/ALT (test code = ALT) < 6 IUnit/L 12-78 L ALKALINE PHOSPHATASE TOTAL (test code = ALKP) 80 IUnit/L 45-117 N Note change in reference range due to change in reagent. [id number] 03:41:00* Test Item Value Reference Range Interpretation Comments PHOSPHORUS (test code = PHOS) 1.9 mg/dL 2.5-4.9 L [id number] 03:41:00* Test Item Value Reference Range Interpretation Comments MAGNESIUM (test code = MAG) 2.1 mg/dL 1.8-2.4 N CALCIUM [id number] 03:41:00* Test Item Value Reference Range Interpretation Comments CALCIUM IONIZED (test code = RADHA) 1.26 mmol/L 1.12-1.32 N CBC W/AUTO [id number] 03:33:00* Test Item Value Reference Range Interpretation Comments WHITE BLOOD CELL (test code = WBC) 20.4 K/mm3 4.5-12.5 H RED BLOOD CELL (test code = RBC) 2.58 mill/mm3 4.0-5.8 L HEMOGLOBIN (test code = HGB) 7.1 gram/dL 13.0-17.5 L HEMATOCRIT (test code = HCT) 22.6 % 42.0-52.0 L MEAN CELL VOLUME (test code = MCV) 87.6 fL 80-98 N MEAN CELL HGB (test code = MCH) 27.5 picogram 27.0-33.0 N MEAN CELL HGB CONCETRATION (test code = MCHC) 31.4 gram/dL 33.0-36. 0 L RED CELL DISTRIBUTION WIDTH (test code = RDW) 18.6 % 11.6-16. 2 H RED CELL DISTRIBUTION WIDTH SD (test code = RDW-SD) 58.8 fL 37 .0-51.0 H PLATELET COUNT (test code = PLT) 330 K/mm3 150-450 N MEAN PLATELET VOLUME (test code = MPV) 9.7 fL 6.7-11.0 N IMMATURE GRANULOCYTE % (test code = IG%) 7.3 % 0.0-5.0 H "The appearance of immature granulocytes (myelocytes,pro-myelocytes, meta-myelocytes) in the peripheral blood ofnon- individuals can indicate a response toinfection, inflammation, or other stimulus to the bonemarrow" NUCLEATED RBC % (test code = NRBC%) 0.0 % 0-0 N NEUTROPHIL # (test code = NT#) 15.97 K/mm3 1.8-7.7 H IMMATURE GRANULOCYTE # (test code = IG#) 1.50 x10 3/uL 0-0.03 H LYMPHOCYTE # (test code = LY#) 0.87 K/mm3 1.0-5.0 L MONOCYTE # (test code = MO#) 1.79 K/mm3 0-0.8 H EOSINOPHIL # (test code = EO#) 0.14 K/mm3 0.0-0.5 N BASOPHIL # (test code = BA#) 0.14 K/mm3 0.0-0.2 N NUCLEATED RBC # (test code = NRBC#) 0.00 K/mm3 0.0-0.1 N MANUAL DIFF REQUIRED (test code = MDIFF) YES [id number] 03:28:00* Test Item Value Reference Range Interpretation Comments AMMONIA (test code = AMM) 22 umol/L 11-32 N COMPREHENSIVE METABOLIC [id number] 03:21:00* Test Item Value Reference Range Interpretation Comments SODIUM (test code = NA) mmol/L 136-145 POTASSIUM (test code = K) mmol/L 3.5-5.1 CHLORIDE (test code = CL) mmol/L 98-107 CARBON DIOXIDE (test code = CO2) mmol/L 21-32 ANION GAP (test code = GAP) 10-20 GLUCOSE (test code = GLU) mg/dL 74-106 BLOOD UREA NITROGEN (test code = BUN) mg/dL 7-18 GLOMERULAR FILTRATION RATE (test code = GFR) mL/min >=60 CREATININE (test code = CREAT) mg/dL 0.7-1.3 BUN/CREATININE RATIO (test code = BUN/CREA) 10-20 TOTAL PROTEIN (test code = PROT) gram/dL 6.4-8.2 ALBUMIN (test code = ALB) g/dL 3.4-5.0 GLOBULIN (test code = GLOB) gram/dL 2.7-4.2 ALBUMIN/GLOBULIN RATIO (test code = A/G) 0.75-1.50 CALCIUM (test code = CA) mg/dL 8.5-10.1 BILIRUBIN TOTAL (test code = BILT) mg/dL 0.0-1.0 SGOT/AST (test code = AST) IUnit/L 15-37 SGPT/ALT (test code = ALT) IUnit/L 12-78 ALKALINE PHOSPHATASE TOTAL (test code = ALKP) IUnit/L 45-117 [id number] 03:21:00* Test Item Value Reference Range Interpretation Comments PHOSPHORUS (test code = PHOS) mg/dL 2.5-4.9 [id number] 03:21:00* Test Item Value Reference Range Interpretation Comments MAGNESIUM (test code = MAG) mg/dL 1.8-2.4 CALCIUM [id number] 03:21:00* Test Item Value Reference Range Interpretation Comments CALCIUM IONIZED (test code = RADHA) 1.26 mmol/L 1.12-1.32 N CBC W/MANUAL [id number] 22:25:00* Test Item Value Reference Range Interpretation Comments WHITE BLOOD CELL (test code = WBC) 25.1 K/mm3 4.5-12.5 H RED BLOOD CELL (test code = RBC) 2.85 mill/mm3 4.0-5.8 L HEMOGLOBIN (test code = HGB) 8.0 gram/dL 13.0-17.5 L HEMATOCRIT (test code = HCT) 25.1 % 42.0-52.0 L MEAN CELL VOLUME (test code = MCV) 88.1 fL 80-98 N MEAN CELL HGB (test code = MCH) 28.1 picogram 27.0-33.0 N MEAN CELL HGB CONCETRATION (test code = MCHC) 31.9 gram/dL 33.0-36. 0 L RED CELL DISTRIBUTION WIDTH (test code = RDW) 18.6 % 11.6-16. 2 H RED CELL DISTRIBUTION WIDTH SD (test code = RDW-SD) 60.5 fL 37 .0-51.0 H PLATELET COUNT (test code = PLT) 348 K/mm3 150-450 N MEAN PLATELET VOLUME (test code = MPV) 9.6 fL 6.7-11.0 N IMMATURE GRANULOCYTE % (test code = IG%) 6.5 % 0.0-5.0 H "The appearance of immature granulocytes (myelocytes,pro-myelocytes, meta-myelocytes) in the peripheral blood ofnon- individuals can indicate a response toinfection, inflammation, or other stimulus to the bonemarrow" NUCLEATED RBC % (test code = NRBC%) 0.0 % 0-0 N NEUTROPHIL # (test code = NT#) 20.22 K/mm3 1.8-7.7 H IMMATURE GRANULOCYTE # (test code = IG#) 1.64 x10 3/uL 0-0.03 H LYMPHOCYTE # (test code = LY#) 0.90 K/mm3 1.0-5.0 L MONOCYTE # (test code = MO#) 2.05 K/mm3 0-0.8 H EOSINOPHIL # (test code = EO#) 0.09 K/mm3 0.0-0.5 N BASOPHIL # (test code = BA#) 0.18 K/mm3 0.0-0.2 N NUCLEATED RBC # (test code = NRBC#) 0.00 K/mm3 0.0-0.1 N MANUAL DIFF REQUIRED (test code = MDIFF) YES STAIN ACCEPTABILITY (test code = STN ACCEPTABLE) STAIN ACCEPTABLE TOTAL CELLS COUNTED (test code = TCC) 114 #CELLS SEGMENTED NEUTROPHILS (test code = SEG) 89.5 % 39-69 H BAND NEUTROPHIL (test code = BAND) 3.5 % 0-10 N LYMPHOCYTE (test code = LYMPH) 2.6 % 25-55 L REACTIVE LYMPH (test code = RELYMPH) 0 % MONOCYTE (test code = MON) 4.4 % 0-10 N EOSINOPHIL (test code = EOS) 0 % 0.0-5.0 N BASOPHIL (test code = BASO) 0 % 0-1.0 N METAMYELOCYTE (test code = META) 0 % 0-0 N MYELOCYTE (test code = MYELO) 0 % 0.0-0.0 N PROMYELOCYTE (test code = PROM) 0 % 0-0 N POIKILOCYTOSIS (test code = POIK) 1+ ELLIPTOCYTES (test code = ELL) 1+ PLATELET ESTIMATE (test code = PLTEST) ADEQUATE PLATELET MORPHOLOGY (test code = PLTMORPH) NORMAL IMMATURE FORMS (test code = IMMAT) 0 % 0-0 N COMPREHENSIVE METABOLIC [id number] 22:19:00* Test Item Value Reference Range Interpretation Comments SODIUM (test code = NA) 138 mmol/L 136-145 N POTASSIUM (test code = K) 3.2 mmol/L 3.5-5.1 L CHLORIDE (test code = CL) 105.0 mmol/L 98-107 N CARBON DIOXIDE (test code = CO2) 27.0 mmol/L 21-32 N ANION GAP (test code = GAP) 9.2 10-20 L GLUCOSE (test code = GLU) 77 mg/dL 74-106 N BLOOD UREA NITROGEN (test code = BUN) 48 mg/dL 7-18 H GLOMERULAR FILTRATION RATE (test code = GFR) 48 mL/min >=60 Estimated GFR by using Modified MDRD formula.Chronic kidney disease is defined as either kidney damageor GFR <60 mL/min/1.73 m2 for >3 months. CREATININE (test code = CREAT) 1.50 mg/dL 0.7-1.3 H BUN/CREATININE RATIO (test code = BUN/CREA) 31.2 10-20 H TOTAL PROTEIN (test code = PROT) 5.3 gram/dL 6.4-8.2 L ALBUMIN (test code = ALB) 2.2 g/dL 3.4-5.0 L GLOBULIN (test code = GLOB) 3.1 gram/dL 2.7-4.2 N ALBUMIN/GLOBULIN RATIO (test code = A/G) 0.7 0.75-1.50 L CALCIUM (test code = CA) 8.0 mg/dL 8.5-10.1 L BILIRUBIN TOTAL (test code = BILT) 0.20 mg/dL 0.0-1.0 N SGOT/AST (test code = AST) 10 IUnit/L 15-37 L SGPT/ALT (test code = ALT) 6 IUnit/L 12-78 L ALKALINE PHOSPHATASE TOTAL (test code = ALKP) 86 IUnit/L 45-117 N Note change in reference range due to change in reagent. [id number] 22:19:00* Test Item Value Reference Range Interpretation Comments PHOSPHORUS (test code = PHOS) 2.2 mg/dL 2.5-4.9 L [id number] 22:19:00* Test Item Value Reference Range Interpretation Comments MAGNESIUM (test code = MAG) 2.1 mg/dL 1.8-2.4 N CALCIUM [id number] 22:19:00* Test Item Value Reference Range Interpretation Comments CALCIUM IONIZED (test code = RADHA) 1.26 mmol/L 1.12-1.32 N LACTIC [id number] 22:19:00* Test Item Value Reference Range Interpretation Comments LACTIC ACID (test code = LACT) 1.1 mmol/L 0.4-1.9 N COMPREHENSIVE METABOLIC [id number] 22:01:00* Test Item Value Reference Range Interpretation Comments SODIUM (test code = NA) 138 mmol/L 136-145 N POTASSIUM (test code = K) 3.2 mmol/L 3.5-5.1 L CHLORIDE (test code = CL) 105.0 mmol/L 98-107 N CARBON DIOXIDE (test code = CO2) mmol/L 21-32 ANION GAP (test code = GAP) 10-20 GLUCOSE (test code = GLU) mg/dL 74-106 BLOOD UREA NITROGEN (test code = BUN) mg/dL 7-18 GLOMERULAR FILTRATION RATE (test code = GFR) mL/min >=60 CREATININE (test code = CREAT) mg/dL 0.7-1.3 BUN/CREATININE RATIO (test code = BUN/CREA) 10-20 TOTAL PROTEIN (test code = PROT) gram/dL 6.4-8.2 ALBUMIN (test code = ALB) g/dL 3.4-5.0 GLOBULIN (test code = GLOB) gram/dL 2.7-4.2 ALBUMIN/GLOBULIN RATIO (test code = A/G) 0.75-1.50 CALCIUM (test code = CA) mg/dL 8.5-10.1 BILIRUBIN TOTAL (test code = BILT) mg/dL 0.0-1.0 SGOT/AST (test code = AST) IUnit/L 15-37 SGPT/ALT (test code = ALT) IUnit/L 12-78 ALKALINE PHOSPHATASE TOTAL (test code = ALKP) IUnit/L 45-117 [id number] 22:01:00* Test Item Value Reference Range Interpretation Comments PHOSPHORUS (test code = PHOS) mg/dL 2.5-4.9 [id number] 22:01:00* Test Item Value Reference Range Interpretation Comments MAGNESIUM (test code = MAG) mg/dL 1.8-2.4 CALCIUM [id number] 22:01:00* Test Item Value Reference Range Interpretation Comments CALCIUM IONIZED (test code = RADHA) mmol/L 1.12-1.32 COMPREHENSIVE METABOLIC [id number] 22:01:00* Test Item Value Reference Range Interpretation Comments SODIUM (test code = NA) 138 mmol/L 136-145 N POTASSIUM (test code = K) 3.2 mmol/L 3.5-5.1 L CHLORIDE (test code = CL) 105.0 mmol/L 98-107 N CARBON DIOXIDE (test code = CO2) mmol/L 21-32 ANION GAP (test code = GAP) 10-20 GLUCOSE (test code = GLU) mg/dL 74-106 BLOOD UREA NITROGEN (test code = BUN) mg/dL 7-18 GLOMERULAR FILTRATION RATE (test code = GFR) mL/min >=60 CREATININE (test code = CREAT) mg/dL 0.7-1.3 BUN/CREATININE RATIO (test code = BUN/CREA) 10-20 TOTAL PROTEIN (test code = PROT) gram/dL 6.4-8.2 ALBUMIN (test code = ALB) g/dL 3.4-5.0 GLOBULIN (test code = GLOB) gram/dL 2.7-4.2 ALBUMIN/GLOBULIN RATIO (test code = A/G) 0.75-1.50 CALCIUM (test code = CA) mg/dL 8.5-10.1 BILIRUBIN TOTAL (test code = BILT) mg/dL 0.0-1.0 SGOT/AST (test code = AST) IUnit/L 15-37 SGPT/ALT (test code = ALT) IUnit/L 12-78 ALKALINE PHOSPHATASE TOTAL (test code = ALKP) IUnit/L 45-117 [id number] 22:01:00* Test Item Value Reference Range Interpretation Comments PHOSPHORUS (test code = PHOS) mg/dL 2.5-4.9 [id number] 22:01:00* Test Item Value Reference Range Interpretation Comments MAGNESIUM (test code = MAG) mg/dL 1.8-2.4 CALCIUM [id number] 22:01:00* Test Item Value Reference Range Interpretation Comments CALCIUM IONIZED (test code = RADHA) 1.26 mmol/L 1.12-1.32 N CBC W/MANUAL [id number] 21:50:00* Test Item Value Reference Range Interpretation Comments WHITE BLOOD CELL (test code = WBC) 25.1 K/mm3 4.5-12.5 H RED BLOOD CELL (test code = RBC) 2.85 mill/mm3 4.0-5.8 L HEMOGLOBIN (test code = HGB) 8.0 gram/dL 13.0-17.5 L HEMATOCRIT (test code = HCT) 25.1 % 42.0-52.0 L MEAN CELL VOLUME (test code = MCV) 88.1 fL 80-98 N MEAN CELL HGB (test code = MCH) 28.1 picogram 27.0-33.0 N MEAN CELL HGB CONCETRATION (test code = MCHC) 31.9 gram/dL 33.0-36. 0 L RED CELL DISTRIBUTION WIDTH (test code = RDW) 18.6 % 11.6-16. 2 H RED CELL DISTRIBUTION WIDTH SD (test code = RDW-SD) 60.5 fL 37 .0-51.0 H PLATELET COUNT (test code = PLT) 348 K/mm3 150-450 N MEAN PLATELET VOLUME (test code = MPV) 9.6 fL 6.7-11.0 N IMMATURE GRANULOCYTE % (test code = IG%) 6.5 % 0.0-5.0 H "The appearance of immature granulocytes (myelocytes,pro-myelocytes, meta-myelocytes) in the peripheral blood ofnon- individuals can indicate a response toinfection, inflammation, or other stimulus to the bonemarrow" NUCLEATED RBC % (test code = NRBC%) 0.0 % 0-0 N NEUTROPHIL # (test code = NT#) 20.22 K/mm3 1.8-7.7 H IMMATURE GRANULOCYTE # (test code = IG#) 1.64 x10 3/uL 0-0.03 H LYMPHOCYTE # (test code = LY#) 0.90 K/mm3 1.0-5.0 L MONOCYTE # (test code = MO#) 2.05 K/mm3 0-0.8 H EOSINOPHIL # (test code = EO#) 0.09 K/mm3 0.0-0.5 N BASOPHIL # (test code = BA#) 0.18 K/mm3 0.0-0.2 N NUCLEATED RBC # (test code = NRBC#) 0.00 K/mm3 0.0-0.1 N MANUAL DIFF REQUIRED (test code = MDIFF) YES STAIN ACCEPTABILITY (test code = STN ACCEPTABLE) TOTAL CELLS COUNTED (test code = TCC) #CELLS SEGMENTED NEUTROPHILS (test code = SEG) % 39-69 LYMPHOCYTE (test code = LYMPH) % 25-55 MONOCYTE (test code = MON) % 0-10 EOSINOPHIL (test code = EOS) % 0.0-5.0 CABOT RINGS (test code = CAB) MORPHOLOGY COMMENT (test code = MOC) PLATELET ESTIMATE (test code = PLTEST) PLATELET MORPHOLOGY (test code = PLTMORPH) CBC W/MANUAL [id number] 21:50:00* Test Item Value Reference Range Interpretation Comments WHITE BLOOD CELL (test code = WBC) 25.1 K/mm3 4.5-12.5 H RED BLOOD CELL (test code = RBC) 2.85 mill/mm3 4.0-5.8 L HEMOGLOBIN (test code = HGB) 8.0 gram/dL 13.0-17.5 L HEMATOCRIT (test code = HCT) 25.1 % 42.0-52.0 L MEAN CELL VOLUME (test code = MCV) 88.1 fL 80-98 N MEAN CELL HGB (test code = MCH) 28.1 picogram 27.0-33.0 N MEAN CELL HGB CONCETRATION (test code = MCHC) 31.9 gram/dL 33.0-36. 0 L RED CELL DISTRIBUTION WIDTH (test code = RDW) 18.6 % 11.6-16. 2 H RED CELL DISTRIBUTION WIDTH SD (test code = RDW-SD) 60.5 fL 37 .0-51.0 H PLATELET COUNT (test code = PLT) 348 K/mm3 150-450 N MEAN PLATELET VOLUME (test code = MPV) 9.6 fL 6.7-11.0 N IMMATURE GRANULOCYTE % (test code = IG%) 6.5 % 0.0-5.0 H "The appearance of immature granulocytes (myelocytes,pro-myelocytes, meta-myelocytes) in the peripheral blood ofnon- individuals can indicate a response toinfection, inflammation, or other stimulus to the bonemarrow" NUCLEATED RBC % (test code = NRBC%) 0.0 % 0-0 N NEUTROPHIL # (test code = NT#) 20.22 K/mm3 1.8-7.7 H IMMATURE GRANULOCYTE # (test code = IG#) 1.64 x10 3/uL 0-0.03 H LYMPHOCYTE # (test code = LY#) 0.90 K/mm3 1.0-5.0 L MONOCYTE # (test code = MO#) 2.05 K/mm3 0-0.8 H EOSINOPHIL # (test code = EO#) 0.09 K/mm3 0.0-0.5 N BASOPHIL # (test code = BA#) 0.18 K/mm3 0.0-0.2 N NUCLEATED RBC # (test code = NRBC#) 0.00 K/mm3 0.0-0.1 N MANUAL DIFF REQUIRED (test code = MDIFF) YES STAIN ACCEPTABILITY (test code = STN ACCEPTABLE) TOTAL CELLS COUNTED (test code = TCC) #CELLS SEGMENTED NEUTROPHILS (test code = SEG) % 39-69 LYMPHOCYTE (test code = LYMPH) % 25-55 MONOCYTE (test code = MON) % 0-10 EOSINOPHIL (test code = EOS) % 0.0-5.0 CABOT RINGS (test code = CAB) MORPHOLOGY COMMENT (test code = MOC) PLATELET ESTIMATE (test code = PLTEST) PLATELET MORPHOLOGY (test code = PLTMORPH) CBC W/MANUAL [id number] 21:50:00* Test Item Value Reference Range Interpretation Comments WHITE BLOOD CELL (test code = WBC) 25.1 K/mm3 4.5-12.5 H RED BLOOD CELL (test code = RBC) 2.85 mill/mm3 4.0-5.8 L HEMOGLOBIN (test code = HGB) 8.0 gram/dL 13.0-17.5 L HEMATOCRIT (test code = HCT) 25.1 % 42.0-52.0 L MEAN CELL VOLUME (test code = MCV) 88.1 fL 80-98 N MEAN CELL HGB (test code = MCH) 28.1 picogram 27.0-33.0 N MEAN CELL HGB CONCETRATION (test code = MCHC) 31.9 gram/dL 33.0-36. 0 L RED CELL DISTRIBUTION WIDTH (test code = RDW) 18.6 % 11.6-16. 2 H RED CELL DISTRIBUTION WIDTH SD (test code = RDW-SD) 60.5 fL 37 .0-51.0 H PLATELET COUNT (test code = PLT) 348 K/mm3 150-450 N MEAN PLATELET VOLUME (test code = MPV) 9.6 fL 6.7-11.0 N IMMATURE GRANULOCYTE % (test code = IG%) 6.5 % 0.0-5.0 H "The appearance of immature granulocytes (myelocytes,pro-myelocytes, meta-myelocytes) in the peripheral blood ofnon- individuals can indicate a response toinfection, inflammation, or other stimulus to the bonemarrow" NUCLEATED RBC % (test code = NRBC%) 0.0 % 0-0 N NEUTROPHIL # (test code = NT#) 20.22 K/mm3 1.8-7.7 H IMMATURE GRANULOCYTE # (test code = IG#) 1.64 x10 3/uL 0-0.03 H LYMPHOCYTE # (test code = LY#) 0.90 K/mm3 1.0-5.0 L MONOCYTE # (test code = MO#) 2.05 K/mm3 0-0.8 H EOSINOPHIL # (test code = EO#) 0.09 K/mm3 0.0-0.5 N BASOPHIL # (test code = BA#) 0.18 K/mm3 0.0-0.2 N NUCLEATED RBC # (test code = NRBC#) 0.00 K/mm3 0.0-0.1 N MANUAL DIFF REQUIRED (test code = MDIFF) YES STAIN ACCEPTABILITY (test code = STN ACCEPTABLE) TOTAL CELLS COUNTED (test code = TCC) #CELLS SEGMENTED NEUTROPHILS (test code = SEG) % 39-69 LYMPHOCYTE (test code = LYMPH) % 25-55 MONOCYTE (test code = MON) % 0-10 EOSINOPHIL (test code = EOS) % 0.0-5.0 MORPHOLOGY COMMENT (test code = MOC) PLATELET ESTIMATE (test code = PLTEST) PLATELET MORPHOLOGY (test code = PLTMORPH) CBC W/MANUAL [id number] 21:50:00* Test Item Value Reference Range Interpretation Comments WHITE BLOOD CELL (test code = WBC) 25.1 K/mm3 4.5-12.5 H RED BLOOD CELL (test code = RBC) 2.85 mill/mm3 4.0-5.8 L HEMOGLOBIN (test code = HGB) 8.0 gram/dL 13.0-17.5 L HEMATOCRIT (test code = HCT) 25.1 % 42.0-52.0 L MEAN CELL VOLUME (test code = MCV) 88.1 fL 80-98 N MEAN CELL HGB (test code = MCH) 28.1 picogram 27.0-33.0 N MEAN CELL HGB CONCETRATION (test code = MCHC) 31.9 gram/dL 33.0-36. 0 L RED CELL DISTRIBUTION WIDTH (test code = RDW) 18.6 % 11.6-16. 2 H RED CELL DISTRIBUTION WIDTH SD (test code = RDW-SD) 60.5 fL 37 .0-51.0 H PLATELET COUNT (test code = PLT) 348 K/mm3 150-450 N MEAN PLATELET VOLUME (test code = MPV) 9.6 fL 6.7-11.0 N IMMATURE GRANULOCYTE % (test code = IG%) 6.5 % 0.0-5.0 H "The appearance of immature granulocytes (myelocytes,pro-myelocytes, meta-myelocytes) in the peripheral blood ofnon- individuals can indicate a response toinfection, inflammation, or other stimulus to the bonemarrow" NUCLEATED RBC % (test code = NRBC%) 0.0 % 0-0 N NEUTROPHIL # (test code = NT#) 20.22 K/mm3 1.8-7.7 H IMMATURE GRANULOCYTE # (test code = IG#) 1.64 x10 3/uL 0-0.03 H LYMPHOCYTE # (test code = LY#) 0.90 K/mm3 1.0-5.0 L MONOCYTE # (test code = MO#) 2.05 K/mm3 0-0.8 H EOSINOPHIL # (test code = EO#) 0.09 K/mm3 0.0-0.5 N BASOPHIL # (test code = BA#) 0.18 K/mm3 0.0-0.2 N NUCLEATED RBC # (test code = NRBC#) 0.00 K/mm3 0.0-0.1 N MANUAL DIFF REQUIRED (test code = MDIFF) YES STAIN ACCEPTABILITY (test code = STN ACCEPTABLE) TOTAL CELLS COUNTED (test code = TCC) #CELLS SEGMENTED NEUTROPHILS (test code = SEG) % 39-69 LYMPHOCYTE (test code = LYMPH) % 25-55 MONOCYTE (test code = MON) % 0-10 MORPHOLOGY COMMENT (test code = MOC) PLATELET ESTIMATE (test code = PLTEST) PLATELET MORPHOLOGY (test code = PLTMORPH) CBC W/MANUAL [id number] 21:50:00* Test Item Value Reference Range Interpretation Comments WHITE BLOOD CELL (test code = WBC) 25.1 K/mm3 4.5-12.5 H RED BLOOD CELL (test code = RBC) 2.85 mill/mm3 4.0-5.8 L HEMOGLOBIN (test code = HGB) 8.0 gram/dL 13.0-17.5 L HEMATOCRIT (test code = HCT) 25.1 % 42.0-52.0 L MEAN CELL VOLUME (test code = MCV) 88.1 fL 80-98 N MEAN CELL HGB (test code = MCH) 28.1 picogram 27.0-33.0 N MEAN CELL HGB CONCETRATION (test code = MCHC) 31.9 gram/dL 33.0-36. 0 L RED CELL DISTRIBUTION WIDTH (test code = RDW) 18.6 % 11.6-16. 2 H RED CELL DISTRIBUTION WIDTH SD (test code = RDW-SD) 60.5 fL 37 .0-51.0 H PLATELET COUNT (test code = PLT) 348 K/mm3 150-450 N MEAN PLATELET VOLUME (test code = MPV) 9.6 fL 6.7-11.0 N IMMATURE GRANULOCYTE % (test code = IG%) 6.5 % 0.0-5.0 H "The appearance of immature granulocytes (myelocytes,pro-myelocytes, meta-myelocytes) in the peripheral blood ofnon- individuals can indicate a response toinfection, inflammation, or other stimulus to the bonemarrow" NUCLEATED RBC % (test code = NRBC%) 0.0 % 0-0 N NEUTROPHIL # (test code = NT#) 20.22 K/mm3 1.8-7.7 H IMMATURE GRANULOCYTE # (test code = IG#) 1.64 x10 3/uL 0-0.03 H LYMPHOCYTE # (test code = LY#) 0.90 K/mm3 1.0-5.0 L MONOCYTE # (test code = MO#) 2.05 K/mm3 0-0.8 H EOSINOPHIL # (test code = EO#) 0.09 K/mm3 0.0-0.5 N BASOPHIL # (test code = BA#) 0.18 K/mm3 0.0-0.2 N NUCLEATED RBC # (test code = NRBC#) 0.00 K/mm3 0.0-0.1 N MANUAL DIFF REQUIRED (test code = MDIFF) YES STAIN ACCEPTABILITY (test code = STN ACCEPTABLE) TOTAL CELLS COUNTED (test code = TCC) #CELLS SEGMENTED NEUTROPHILS (test code = SEG) % 39-69 LYMPHOCYTE (test code = LYMPH) % 25-55 MONOCYTE (test code = MON) % 0-10 EOSINOPHIL (test code = EOS) % 0.0-5.0 CABOT RINGS (test code = CAB) MORPHOLOGY COMMENT (test code = MOC) PLATELET ESTIMATE (test code = PLTEST) PLATELET MORPHOLOGY (test code = PLTMORPH) [id number] 20:04:00* Test Item Value Reference Range Interpretation Comments GLUBED (test code = GLUBED) 77 mg/dL 74-106 N Performed by certified sleeve presser operator at [facility] - CT ABD PELVIS W/O [id number] 18:18:00 Name: [place] [facility] [facility] : 1960 Age/S: 59 / M [address] [facility] Unit #: [id number] [place]: [place] [address] Phys: Cheryle Vila NATUROPATHIC ONCOLOGY PROVIDER Acct: [id number] Dis Date: Status: ADM IN PHONE #: [phone] Exam Date: 12/09/2019 1720 FAX #: [phone] Reason: r/o colitis vs mesenteric ischemia EXAMS: CPT CODE: [id number] CT ABD PELVIS W/O CONT [id number] HISTORY: r/o colitis vs mesenteric ischemia TECHNIQUE: [address] images were obtained through the abdomen and pelvis without contrast. Sagittal and coronal reformatted images were generated. Automated exposure reduction (Auto mA/Smart mA) was utilized in compliance with ACR Image [employer] with DLP of 638 mGy-cm. COMPARISON: 10/06/19 FINDINGS: Statements: Lack of intravenous contrast limits evaluation of abdominopelvic organs and vasculature. THORACIC: Small bilateral pleural effusions with dependent subsegmental atelectasis. Cardiomegaly. Coronary artery and thoracic aortic vascular calcification. HEPATOBI LIARY: Liver is normal without focal lesion. Gallbladder is normal. No halley iary dilation. PANCREAS: Normal. SPLEEN: Normal. ADRENALS: No rmal. GASTROINTESTINAL: Limited evaluation without oral contrast. De compressed stomach with enteric tube positioned in the antrum. Small bowel and appendix are unremarkable. Circumferential wall thickening of the col on with pericolonic stranding, most notable distally. GENITOURINARY: Kidne ys are normal. No hydronephrosis. Urinary bladder is unremarkable. Uterus and ovaries are unremarkable. VASCULAR: Aortoiliac atherosclerotic vascula r calcification without aneurysm. LYMPHATICS: No enlarged lymph nod es by CT size criteria. PERITONEUM/OTHER: Trace intraperitoneal free fluid . No free air. BONES/SOFT TISSUES: Degenerative changes of the spine, sacr al iliac joints, and hips. IMPRESSION: Circumferential wall thickening of the colon with pericolonic str anding, most notable distally. Correlate with clinical evidence of infec tious or inflammatory colitis. Ischemic etiology is thought less likely due to involvement of 2 vascular territories. PAGE 1 Signed Report (CONTINUED) Name: [place] BRY[facility] : 1960 Age/S: 59 / M [address] [facility] Unit #: [id number] Loc: [place] [address] Phys: Cheryle Vila NP Acct: [id number] Dis Date: tus: ADM IN PHONE #: [phone] Exam Date : 12/09/2019 1720 FAX #: [phone] Reason: r/o coli tis vs mesenteric ischemia EXAMS: CPT CODE: [id number] CT ABD PELVIS W/O CONT [id number] <Continued> LOCATION: [facility] at 1818 Reported and signed by: Cassia Ruiz D.O. CC: Sammy Lopez MD; Cheryle Vila NP Technologist:Diana Song RT(R),CT; CTDI: DLP: Trnscb Date/Time: 12/09/2019 (1817) [email or web address] Orig Print D/T: S: 12/09/2019 (1820) PAGE 2 Signed Report ARTERIAL BLOOD [id number] 16:12:00* Test Item Value Reference Range Interpretation Comments ARTERIAL BLOOD GAS PH (test code = PHA) 7.35 7.35-7.45 N ARTERIAL BLOOD GAS PCO2 (test code = PCO2A) 36.7 mm Hg 35-45 N ARTERIAL BLOOD GAS PO2 (test code = PO2A) 91.0 mmHg 80-100 N BICARBONATE TOTAL HCO3 (test code = HCO3) 19.9 mmol/L 23.0-27.0 L BASE EXCESS (test code = SAM) -5.1 mmol/L -3.0-5.0 LL Results called to and read back by myron 16:10 - 12/09/2019; by tm ABG O2 SATURATION (test code = SATA) 95.0 % 90.0-98.0 N ABG TYPE (test code = TYPEA) Arterial FIO2 (test code = FIO2A) 21.0 ABG SITE (test code = SITEA) Lt RADIAL ARTERY MODIFIED ALLENS (test code = MODALL) Yes CHECK PERFORMED HEMATOCRIT (test code = HCT/ABG) 28 % 42-52 L TOTAL HGB (test code = THB) 9.5 gram/dL 13.0-17.5 L HGB O2 SAT (test code = HBOSAT) 93.7 % 94.00-98.00 L CARBOXYHEMOGLOBIN (test code = HOHGBT) 1.4 %totalHg 0.5-1.5 N METHEMOGLOBIN (test code = METHGB) 0.0 % 0.0-1.50 N O2 CONTENT (test code = O2CT) 12.7 % vol 18.0-22.0 L - XR CHEST 1 [id number] 14:04:00 FAX: Sammy Mccain MD [place]: B St: ADM Name: [place] [facility] : [birth year] 57 Age/S: 59/M [address] [facility] Unit #: [id number] Loc: V.2075 [place] [address] Phys: Sammy Lopez MD Acct: [id number] Dis Date: Status: ADM IN PHONE #: [phone] Exam Date: 12/09/2019 8445 FAX #: [phone] Reason: POST NG TUBE INCERTION EXAMS: CPT CODE: [id number] XR CHEST 1 V 22064 Examination: One view chest x-ray Location code: H60 Comparison: Examination performe d earlier in the day. Discussion: Clinical history i s remarkable for NG tube insertion. Nasogastric tube is identified with i ts tip below left hemidiaphragm and presumably in the stomach. Distended bowel loops are identified in the abdomen. Heart is normal i n size. Patient is status post sternotomy. Lungs are clear consolidating infiltrates. Impression: 1. Placement of nasogastric t ube with its tip below the left hemidiaphragm and presumably within the stomach. 2. Stable chest x-ray without evidence for acute infiltrates o r effusions. Right basilar opacity seen previously is not as clearly seen on the present study. at 1404 Reported and signed by: Rick Calix M.D. CC: Sammy Lopez MD Technologist: DAYANA CERRATO RT (R); NURYS JAEGER RT(R) [facility] Date/Time/By: 12/09/2019 (2609) : By: [email or web address] Orig Print D/T: S: 12/09/2019 (8061) PAGE 1 Arabella d Report COMPREHENSIVE METABOLIC [id number] 11:45:00* Test Item Value Reference Range Interpretation Comments SODIUM (test code = NA) 136 mmol/L 136-145 N POTASSIUM (test code = K) 3.4 mmol/L 3.5-5.1 L CHLORIDE (test code = CL) 102.0 mmol/L 98-107 N CARBON DIOXIDE (test code = CO2) 26.0 mmol/L 21-32 N ANION GAP (test code = GAP) 11.4 10-20 N GLUCOSE (test code = GLU) 102 mg/dL 74-106 N BLOOD UREA NITROGEN (test code = BUN) 46 mg/dL 7-18 H RESULT VERIFIED BY REPEAT ANALYSIS GLOMERULAR FILTRATION RATE (test code = GFR) 48 mL/min >=60 Estimated GFR by using Modified MDRD formula.Chronic kidney disease is defined as either kidney damageor GFR <60 mL/min/1.73 m2 for >3 months. CREATININE (test code = CREAT) 1.50 mg/dL 0.7-1.3 H BUN/CREATININE RATIO (test code = BUN/CREA) 30.7 10-20 H TOTAL PROTEIN (test code = PROT) 5.7 gram/dL 6.4-8.2 L ALBUMIN (test code = ALB) 2.2 g/dL 3.4-5.0 L GLOBULIN (test code = GLOB) 3.5 gram/dL 2.7-4.2 N ALBUMIN/GLOBULIN RATIO (test code = A/G) 0.6 0.75-1.50 L CALCIUM (test code = CA) 8.1 mg/dL 8.5-10.1 L BILIRUBIN TOTAL (test code = BILT) 0.30 mg/dL 0.0-1.0 N SGOT/AST (test code = AST) 9 IUnit/L 15-37 L SGPT/ALT (test code = ALT) 7 IUnit/L 12-78 L ALKALINE PHOSPHATASE TOTAL (test code = ALKP) 90 IUnit/L 45-117 N Note change in reference range due to change in reagent. [id number] 11:45:00* Test Item Value Reference Range Interpretation Comments AMYLASE (test code = DERIC) 10 Unit/L 25-115 L [id number] 11:45:00* Test Item Value Reference Range Interpretation Comments LIPASE (test code = LIP) 28 U/L 73.0-393.0 L COMPREHENSIVE METABOLIC [id number] 11:33:00* Test Item Value Reference Range Interpretation Comments SODIUM (test code = NA) 136 mmol/L 136-145 N POTASSIUM (test code = K) 3.4 mmol/L 3.5-5.1 L CHLORIDE (test code = CL) 102.0 mmol/L 98-107 N CARBON DIOXIDE (test code = CO2) 26.0 mmol/L 21-32 N ANION GAP (test code = GAP) 11.4 10-20 N GLUCOSE (test code = GLU) 102 mg/dL 74-106 N BLOOD UREA NITROGEN (test code = BUN) 46 mg/dL 7-18 H GLOMERULAR FILTRATION RATE (test code = GFR) 48 mL/min >=60 Estimated GFR by using Modified MDRD formula.Chronic kidney disease is defined as either kidney damageor GFR <60 mL/min/1.73 m2 for >3 months. CREATININE (test code = CREAT) 1.50 mg/dL 0.7-1.3 H BUN/CREATININE RATIO (test code = BUN/CREA) 30.7 10-20 H TOTAL PROTEIN (test code = PROT) 5.7 gram/dL 6.4-8.2 L ALBUMIN (test code = ALB) 2.2 g/dL 3.4-5.0 L GLOBULIN (test code = GLOB) 3.5 gram/dL 2.7-4.2 N ALBUMIN/GLOBULIN RATIO (test code = A/G) 0.6 0.75-1.50 L CALCIUM (test code = CA) 8.1 mg/dL 8.5-10.1 L BILIRUBIN TOTAL (test code = BILT) 0.30 mg/dL 0.0-1.0 N SGOT/AST (test code = AST) 9 IUnit/L 15-37 L SGPT/ALT (test code = ALT) 7 IUnit/L 12-78 L ALKALINE PHOSPHATASE TOTAL (test code = ALKP) 90 IUnit/L 45-117 N Note change in reference range due to change in reagent. [id number] 11:33:00* Test Item Value Reference Range Interpretation Comments AMYLASE (test code = DERIC) 10 Unit/L 25-115 L [id number] 11:33:00* Test Item Value Reference Range Interpretation Comments LIPASE (test code = LIP) 28 U/L 73.0-393.0 L COMPREHENSIVE METABOLIC [id number] 11:31:00* Test Item Value Reference Range Interpretation Comments SODIUM (test code = NA) 136 mmol/L 136-145 N POTASSIUM (test code = K) 3.4 mmol/L 3.5-5.1 L CHLORIDE (test code = CL) 102.0 mmol/L 98-107 N CARBON DIOXIDE (test code = CO2) mmol/L 21-32 ANION GAP (test code = GAP) 10-20 GLUCOSE (test code = GLU) mg/dL 74-106 BLOOD UREA NITROGEN (test code = BUN) mg/dL 7-18 GLOMERULAR FILTRATION RATE (test code = GFR) mL/min >=60 CREATININE (test code = CREAT) mg/dL 0.7-1.3 BUN/CREATININE RATIO (test code = BUN/CREA) 10-20 TOTAL PROTEIN (test code = PROT) gram/dL 6.4-8.2 ALBUMIN (test code = ALB) g/dL 3.4-5.0 GLOBULIN (test code = GLOB) gram/dL 2.7-4.2 ALBUMIN/GLOBULIN RATIO (test code = A/G) 0.75-1.50 CALCIUM (test code = CA) mg/dL 8.5-10.1 BILIRUBIN TOTAL (test code = BILT) mg/dL 0.0-1.0 SGOT/AST (test code = AST) IUnit/L 15-37 SGPT/ALT (test code = ALT) IUnit/L 12-78 ALKALINE PHOSPHATASE TOTAL (test code = ALKP) IUnit/L 45-117 [id number] 11:31:00* Test Item Value Reference Range Interpretation Comments AMYLASE (test code = DERIC) Unit/L 25-115 [id number] 11:31:00* Test Item Value Reference Range Interpretation Comments LIPASE (test code = LIP) U/L 73.0-393.0 CBC W/MANUAL [id number] 11:21:00* Test Item Value Reference Range Interpretation Comments WHITE BLOOD CELL (test code = WBC) 23.3 K/mm3 4.5-12.5 H RED BLOOD CELL (test code = RBC) 3.13 mill/mm3 4.0-5.8 L HEMOGLOBIN (test code = HGB) 8.9 gram/dL 13.0-17.5 L HEMATOCRIT (test code = HCT) 27.3 % 42.0-52.0 L MEAN CELL VOLUME (test code = MCV) 87.2 fL 80-98 N MEAN CELL HGB (test code = MCH) 28.4 picogram 27.0-33.0 N MEAN CELL HGB CONCETRATION (test code = MCHC) 32.6 gram/dL 33.0-36. 0 L RED CELL DISTRIBUTION WIDTH (test code = RDW) 18.3 % 11.6-16. 2 H RED CELL DISTRIBUTION WIDTH SD (test code = RDW-SD) 58.1 fL 37 .0-51.0 H PLATELET COUNT (test code = PLT) 337 K/mm3 150-450 N MEAN PLATELET VOLUME (test code = MPV) 9.3 fL 6.7-11.0 N IMMATURE GRANULOCYTE % (test code = IG%) 7.3 % 0.0-5.0 H "The appearance of immature granulocytes (myelocytes,pro-myelocytes, meta-myelocytes) in the peripheral blood ofnon- individuals can indicate a response toinfection, inflammation, or other stimulus to the bonemarrow" NUCLEATED RBC % (test code = NRBC%) 0.0 % 0-0 N NEUTROPHIL # (test code = NT#) 19.28 K/mm3 1.8-7.7 H IMMATURE GRANULOCYTE # (test code = IG#) 1.69 x10 3/uL 0-0.03 H LYMPHOCYTE # (test code = LY#) 0.50 K/mm3 1.0-5.0 L MONOCYTE # (test code = MO#) 1.77 K/mm3 0-0.8 H EOSINOPHIL # (test code = EO#) 0.02 K/mm3 0.0-0.5 N BASOPHIL # (test code = BA#) 0.02 K/mm3 0.0-0.2 N NUCLEATED RBC # (test code = NRBC#) 0.00 K/mm3 0.0-0.1 N MANUAL DIFF REQUIRED (test code = MDIFF) YES STAIN ACCEPTABILITY (test code = STN ACCEPTABLE) STAIN ACCEPTABLE TOTAL CELLS COUNTED (test code = TCC) 115 #CELLS SEGMENTED NEUTROPHILS (test code = SEG) 87.8 % 39-69 H BAND NEUTROPHIL (test code = BAND) 4.3 % 0-10 N LYMPHOCYTE (test code = LYMPH) 3.5 % 25-55 L REACTIVE LYMPH (test code = RELYMPH) 0 % MONOCYTE (test code = MON) 4.4 % 0-10 N EOSINOPHIL (test code = EOS) 0 % 0.0-5.0 N BASOPHIL (test code = BASO) 0 % 0-1.0 N METAMYELOCYTE (test code = META) 0 % 0-0 N MYELOCYTE (test code = MYELO) 0 % 0.0-0.0 N PROMYELOCYTE (test code = PROM) 0 % 0-0 N POIKILOCYTOSIS (test code = POIK) 1+ PLATELET ESTIMATE (test code = PLTEST) ADEQUATE PLATELET MORPHOLOGY (test code = PLTMORPH) SIZE VARIABLE IMMATURE FORMS (test code = IMMAT) 0 % 0-0 N CBC W/MANUAL [id number] 10:46:00* Test Item Value Reference Range Interpretation Comments WHITE BLOOD CELL (test code = WBC) 23.3 K/mm3 4.5-12.5 H RED BLOOD CELL (test code = RBC) 3.13 mill/mm3 4.0-5.8 L HEMOGLOBIN (test code = HGB) 8.9 gram/dL 13.0-17.5 L HEMATOCRIT (test code = HCT) 27.3 % 42.0-52.0 L MEAN CELL VOLUME (test code = MCV) 87.2 fL 80-98 N MEAN CELL HGB (test code = MCH) 28.4 picogram 27.0-33.0 N MEAN CELL HGB CONCETRATION (test code = MCHC) 32.6 gram/dL 33.0-36. 0 L RED CELL DISTRIBUTION WIDTH (test code = RDW) 18.3 % 11.6-16. 2 H RED CELL DISTRIBUTION WIDTH SD (test code = RDW-SD) 58.1 fL 37 .0-51.0 H PLATELET COUNT (test code = PLT) 337 K/mm3 150-450 N MEAN PLATELET VOLUME (test code = MPV) 9.3 fL 6.7-11.0 N IMMATURE GRANULOCYTE % (test code = IG%) 7.3 % 0.0-5.0 H "The appearance of immature granulocytes (myelocytes,pro-myelocytes, meta-myelocytes) in the peripheral blood ofnon- individuals can indicate a response toinfection, inflammation, or other stimulus to the bonemarrow" NUCLEATED RBC % (test code = NRBC%) 0.0 % 0-0 N NEUTROPHIL # (test code = NT#) 19.28 K/mm3 1.8-7.7 H IMMATURE GRANULOCYTE # (test code = IG#) 1.69 x10 3/uL 0-0.03 H LYMPHOCYTE # (test code = LY#) 0.50 K/mm3 1.0-5.0 L MONOCYTE # (test code = MO#) 1.77 K/mm3 0-0.8 H EOSINOPHIL # (test code = EO#) 0.02 K/mm3 0.0-0.5 N BASOPHIL # (test code = BA#) 0.02 K/mm3 0.0-0.2 N NUCLEATED RBC # (test code = NRBC#) 0.00 K/mm3 0.0-0.1 N MANUAL DIFF REQUIRED (test code = MDIFF) YES STAIN ACCEPTABILITY (test code = STN ACCEPTABLE) TOTAL CELLS COUNTED (test code = TCC) #CELLS SEGMENTED NEUTROPHILS (test code = SEG) % 39-69 LYMPHOCYTE (test code = LYMPH) % 25-55 MONOCYTE (test code = MON) % 0-10 EOSINOPHIL (test code = EOS) % 0.0-5.0 CABOT RINGS (test code = CAB) MORPHOLOGY COMMENT (test code = MOC) PLATELET ESTIMATE (test code = PLTEST) PLATELET MORPHOLOGY (test code = PLTMORPH) CBC W/MANUAL [id number] 10:46:00* Test Item Value Reference Range Interpretation Comments WHITE BLOOD CELL (test code = WBC) 23.3 K/mm3 4.5-12.5 H RED BLOOD CELL (test code = RBC) 3.13 mill/mm3 4.0-5.8 L HEMOGLOBIN (test code = HGB) 8.9 gram/dL 13.0-17.5 L HEMATOCRIT (test code = HCT) 27.3 % 42.0-52.0 L MEAN CELL VOLUME (test code = MCV) 87.2 fL 80-98 N MEAN CELL HGB (test code = MCH) 28.4 picogram 27.0-33.0 N MEAN CELL HGB CONCETRATION (test code = MCHC) 32.6 gram/dL 33.0-36. 0 L RED CELL DISTRIBUTION WIDTH (test code = RDW) 18.3 % 11.6-16. 2 H RED CELL DISTRIBUTION WIDTH SD (test code = RDW-SD) 58.1 fL 37 .0-51.0 H PLATELET COUNT (test code = PLT) 337 K/mm3 150-450 N MEAN PLATELET VOLUME (test code = MPV) 9.3 fL 6.7-11.0 N IMMATURE GRANULOCYTE % (test code = IG%) 7.3 % 0.0-5.0 H "The appearance of immature granulocytes (myelocytes,pro-myelocytes, meta-myelocytes) in the peripheral blood ofnon- individuals can indicate a response toinfection, inflammation, or other stimulus to the bonemarrow" NUCLEATED RBC % (test code = NRBC%) 0.0 % 0-0 N NEUTROPHIL # (test code = NT#) 19.28 K/mm3 1.8-7.7 H IMMATURE GRANULOCYTE # (test code = IG#) 1.69 x10 3/uL 0-0.03 H LYMPHOCYTE # (test code = LY#) 0.50 K/mm3 1.0-5.0 L MONOCYTE # (test code = MO#) 1.77 K/mm3 0-0.8 H EOSINOPHIL # (test code = EO#) 0.02 K/mm3 0.0-0.5 N BASOPHIL # (test code = BA#) 0.02 K/mm3 0.0-0.2 N NUCLEATED RBC # (test code = NRBC#) 0.00 K/mm3 0.0-0.1 N MANUAL DIFF REQUIRED (test code = MDIFF) YES STAIN ACCEPTABILITY (test code = STN ACCEPTABLE) TOTAL CELLS COUNTED (test code = TCC) #CELLS SEGMENTED NEUTROPHILS (test code = SEG) % 39-69 LYMPHOCYTE (test code = LYMPH) % 25-55 MONOCYTE (test code = MON) % 0-10 EOSINOPHIL (test code = EOS) % 0.0-5.0 MORPHOLOGY COMMENT (test code = MOC) PLATELET ESTIMATE (test code = PLTEST) PLATELET MORPHOLOGY (test code = PLTMORPH) CBC W/MANUAL [id number] 10:46:00* Test Item Value Reference Range Interpretation Comments WHITE BLOOD CELL (test code = WBC) 23.3 K/mm3 4.5-12.5 H RED BLOOD CELL (test code = RBC) 3.13 mill/mm3 4.0-5.8 L HEMOGLOBIN (test code = HGB) 8.9 gram/dL 13.0-17.5 L HEMATOCRIT (test code = HCT) 27.3 % 42.0-52.0 L MEAN CELL VOLUME (test code = MCV) 87.2 fL 80-98 N MEAN CELL HGB (test code = MCH) 28.4 picogram 27.0-33.0 N MEAN CELL HGB CONCETRATION (test code = MCHC) 32.6 gram/dL 33.0-36. 0 L RED CELL DISTRIBUTION WIDTH (test code = RDW) 18.3 % 11.6-16. 2 H RED CELL DISTRIBUTION WIDTH SD (test code = RDW-SD) 58.1 fL 37 .0-51.0 H PLATELET COUNT (test code = PLT) 337 K/mm3 150-450 N MEAN PLATELET VOLUME (test code = MPV) 9.3 fL 6.7-11.0 N IMMATURE GRANULOCYTE % (test code = IG%) 7.3 % 0.0-5.0 H "The appearance of immature granulocytes (myelocytes,pro-myelocytes, meta-myelocytes) in the peripheral blood ofnon- individuals can indicate a response toinfection, inflammation, or other stimulus to the bonemarrow" NUCLEATED RBC % (test code = NRBC%) 0.0 % 0-0 N NEUTROPHIL # (test code = NT#) 19.28 K/mm3 1.8-7.7 H IMMATURE GRANULOCYTE # (test code = IG#) 1.69 x10 3/uL 0-0.03 H LYMPHOCYTE # (test code = LY#) 0.50 K/mm3 1.0-5.0 L MONOCYTE # (test code = MO#) 1.77 K/mm3 0-0.8 H EOSINOPHIL # (test code = EO#) 0.02 K/mm3 0.0-0.5 N BASOPHIL # (test code = BA#) 0.02 K/mm3 0.0-0.2 N NUCLEATED RBC # (test code = NRBC#) 0.00 K/mm3 0.0-0.1 N MANUAL DIFF REQUIRED (test code = MDIFF) YES STAIN ACCEPTABILITY (test code = STN ACCEPTABLE) TOTAL CELLS COUNTED (test code = TCC) #CELLS SEGMENTED NEUTROPHILS (test code = SEG) % 39-69 LYMPHOCYTE (test code = LYMPH) % 25-55 MONOCYTE (test code = MON) % 0-10 MORPHOLOGY COMMENT (test code = MOC) PLATELET ESTIMATE (test code = PLTEST) PLATELET MORPHOLOGY (test code = PLTMORPH) CBC W/MANUAL [id number] 10:45:00* Test Item Value Reference Range Interpretation Comments WHITE BLOOD CELL (test code = WBC) 23.3 K/mm3 4.5-12.5 H RED BLOOD CELL (test code = RBC) 3.13 mill/mm3 4.0-5.8 L HEMOGLOBIN (test code = HGB) 8.9 gram/dL 13.0-17.5 L HEMATOCRIT (test code = HCT) 27.3 % 42.0-52.0 L MEAN CELL VOLUME (test code = MCV) 87.2 fL 80-98 N MEAN CELL HGB (test code = MCH) 28.4 picogram 27.0-33.0 N MEAN CELL HGB CONCETRATION (test code = MCHC) 32.6 gram/dL 33.0-36. 0 L RED CELL DISTRIBUTION WIDTH (test code = RDW) 18.3 % 11.6-16. 2 H RED CELL DISTRIBUTION WIDTH SD (test code = RDW-SD) 58.1 fL 37 .0-51.0 H PLATELET COUNT (test code = PLT) 337 K/mm3 150-450 N MEAN PLATELET VOLUME (test code = MPV) 9.3 fL 6.7-11.0 N IMMATURE GRANULOCYTE % (test code = IG%) 7.3 % 0.0-5.0 H "The appearance of immature granulocytes (myelocytes,pro-myelocytes, meta-myelocytes) in the peripheral blood ofnon- individuals can indicate a response toinfection, inflammation, or other stimulus to the bonemarrow" NUCLEATED RBC % (test code = NRBC%) 0.0 % 0-0 N NEUTROPHIL # (test code = NT#) 19.28 K/mm3 1.8-7.7 H IMMATURE GRANULOCYTE # (test code = IG#) 1.69 x10 3/uL 0-0.03 H LYMPHOCYTE # (test code = LY#) 0.50 K/mm3 1.0-5.0 L MONOCYTE # (test code = MO#) 1.77 K/mm3 0-0.8 H EOSINOPHIL # (test code = EO#) 0.02 K/mm3 0.0-0.5 N BASOPHIL # (test code = BA#) 0.02 K/mm3 0.0-0.2 N NUCLEATED RBC # (test code = NRBC#) 0.00 K/mm3 0.0-0.1 N MANUAL DIFF REQUIRED (test code = MDIFF) YES STAIN ACCEPTABILITY (test code = STN ACCEPTABLE) TOTAL CELLS COUNTED (test code = TCC) #CELLS SEGMENTED NEUTROPHILS (test code = SEG) % 39-69 LYMPHOCYTE (test code = LYMPH) % 25-55 MONOCYTE (test code = MON) % 0-10 EOSINOPHIL (test code = EOS) % 0.0-5.0 CABOT RINGS (test code = CAB) MORPHOLOGY COMMENT (test code = MOC) PLATELET ESTIMATE (test code = PLTEST) PLATELET MORPHOLOGY (test code = PLTMORPH) CBC W/MANUAL [id number] 10:45:00* Test Item Value Reference Range Interpretation Comments WHITE BLOOD CELL (test code = WBC) 23.3 K/mm3 4.5-12.5 H RED BLOOD CELL (test code = RBC) 3.13 mill/mm3 4.0-5.8 L HEMOGLOBIN (test code = HGB) 8.9 gram/dL 13.0-17.5 L HEMATOCRIT (test code = HCT) 27.3 % 42.0-52.0 L MEAN CELL VOLUME (test code = MCV) 87.2 fL 80-98 N MEAN CELL HGB (test code = MCH) 28.4 picogram 27.0-33.0 N MEAN CELL HGB CONCETRATION (test code = MCHC) 32.6 gram/dL 33.0-36. 0 L RED CELL DISTRIBUTION WIDTH (test code = RDW) 18.3 % 11.6-16. 2 H RED CELL DISTRIBUTION WIDTH SD (test code = RDW-SD) 58.1 fL 37 .0-51.0 H PLATELET COUNT (test code = PLT) 337 K/mm3 150-450 N MEAN PLATELET VOLUME (test code = MPV) 9.3 fL 6.7-11.0 N IMMATURE GRANULOCYTE % (test code = IG%) 7.3 % 0.0-5.0 H "The appearance of immature granulocytes (myelocytes,pro-myelocytes, meta-myelocytes) in the peripheral blood ofnon- individuals can indicate a response toinfection, inflammation, or other stimulus to the bonemarrow" NUCLEATED RBC % (test code = NRBC%) 0.0 % 0-0 N NEUTROPHIL # (test code = NT#) 19.28 K/mm3 1.8-7.7 H IMMATURE GRANULOCYTE # (test code = IG#) 1.69 x10 3/uL 0-0.03 H LYMPHOCYTE # (test code = LY#) 0.50 K/mm3 1.0-5.0 L MONOCYTE # (test code = MO#) 1.77 K/mm3 0-0.8 H EOSINOPHIL # (test code = EO#) 0.02 K/mm3 0.0-0.5 N BASOPHIL # (test code = BA#) 0.02 K/mm3 0.0-0.2 N NUCLEATED RBC # (test code = NRBC#) 0.00 K/mm3 0.0-0.1 N MANUAL DIFF REQUIRED (test code = MDIFF) YES STAIN ACCEPTABILITY (test code = STN ACCEPTABLE) TOTAL CELLS COUNTED (test code = TCC) #CELLS SEGMENTED NEUTROPHILS (test code = SEG) % 39-69 LYMPHOCYTE (test code = LYMPH) % 25-55 MONOCYTE (test code = MON) % 0-10 EOSINOPHIL (test code = EOS) % 0.0-5.0 CABOT RINGS (test code = CAB) MORPHOLOGY COMMENT (test code = MOC) PLATELET ESTIMATE (test code = PLTEST) PLATELET MORPHOLOGY (test code = PLTMORPH) - XR ABDOMEN AP 1 [id number] 09:48:00 FAX: Sammy Mccain MD [place]: St: ADM Name: [place] LATH[place] [facility] : [birth year] Age/S: 59/M [address] [facility] Unit #: [id number] Loc: [address] [address] Phys: Sammy Lopez MD Acct: [id number] Dis Date: Status: ADM IN PHONE #: [phone] Exam Date: 12/09/2019914 FAX #: [phone] Reason: EMESIS EXAMS: CPT CODE: [id number] XR ABDOMEN AP 1 V [id number] REASON FOR EXAM: EMESIS EXAM ORDER DATE: 12/09/2019 7:17 AM Ordering: Sammy Lopez MD Attending:Sammy Lopez MD Location:[facility] EDURE: - XR ABDOMEN AP 1 V COMPARISON:09/27/2019 FIND INGS: One view of the abdomen obtained at 9:16 AM the small Scattered feca l material is seen in the colon. No evidence of organomegaly or evidence o f ascites. No evidence of free air. IMPRESSION: Mild gaseous dis tention of the stomach and small bowel loops suggestive of ileus. at 0948 Reported and signed by: Prince Eddy M.D. CC: Alvarado Lopez MD Technologist: NURYS JAEGER RT (R) Trnscrd Date/Time/By: 12/09/2019 (2360) : B y: [email or web address] Orig Print D/T: S: 12/09/2019 (7150) PAGE 1 Signed Report CBC W/MANUAL [id number] 07:16:00* Test Item Value Reference Range Interpretation Comments WHITE BLOOD CELL (test code = WBC) 24.2 K/mm3 4.5-12.5 H RED BLOOD CELL (test code = RBC) 3.36 mill/mm3 4.0-5.8 L HEMOGLOBIN (test code = HGB) 9.3 gram/dL 13.0-17.5 L HEMATOCRIT (test code = HCT) 29.5 % 42.0-52.0 L MEAN CELL VOLUME (test code = MCV) 87.8 fL 80-98 N MEAN CELL HGB (test code = MCH) 27.7 picogram 27.0-33.0 N MEAN CELL HGB CONCETRATION (test code = MCHC) 31.5 gram/dL 33.0-36. 0 L RED CELL DISTRIBUTION WIDTH (test code = RDW) 18.1 % 11.6-16. 2 H RED CELL DISTRIBUTION WIDTH SD (test code = RDW-SD) 58.3 fL 37 .0-51.0 H PLATELET COUNT (test code = PLT) 381 K/mm3 150-450 RESULT VERIFIED BY REPEAT ANALYSIS MEAN PLATELET VOLUME (test code = MPV) 9.9 fL 6.7-11.0 N IMMATURE GRANULOCYTE % (test code = IG%) 6.3 % 0.0-5.0 H "The appearance of immature granulocytes (myelocytes,pro-myelocytes, meta-myelocytes) in the peripheral blood ofnon- individuals can indicate a response toinfection, inflammation, or other stimulus to the bonemarrow" NUCLEATED RBC % (test code = NRBC%) 0.0 % 0-0 N NEUTROPHIL # (test code = NT#) 19.94 K/mm3 1.8-7.7 H IMMATURE GRANULOCYTE # (test code = IG#) 1.52 x10 3/uL 0-0.03 H LYMPHOCYTE # (test code = LY#) 0.70 K/mm3 1.0-5.0 L MONOCYTE # (test code = MO#) 1.82 K/mm3 0-0.8 H EOSINOPHIL # (test code = EO#) 0.16 K/mm3 0.0-0.5 N BASOPHIL # (test code = BA#) 0.03 K/mm3 0.0-0.2 N NUCLEATED RBC # (test code = NRBC#) 0.00 K/mm3 0.0-0.1 N MANUAL DIFF REQUIRED (test code = MDIFF) YES STAIN ACCEPTABILITY (test code = STN ACCEPTABLE) STAIN ACCEPTABLE TOTAL CELLS COUNTED (test code = TCC) 115 #CELLS SEGMENTED NEUTROPHILS (test code = SEG) 73.9 % 39-69 H BAND NEUTROPHIL (test code = BAND) 13.1 % 0-10 H LYMPHOCYTE (test code = LYMPH) 1.7 % 25-55 L REACTIVE LYMPH (test code = RELYMPH) 0 % MONOCYTE (test code = MON) 6.1 % 0-10 N EOSINOPHIL (test code = EOS) 0 % 0.0-5.0 N BASOPHIL (test code = BASO) 0 % 0-1.0 N METAMYELOCYTE (test code = META) 2.6 % 0-0 H MYELOCYTE (test code = MYELO) 2.6 % 0.0-0.0 H PROMYELOCYTE (test code = PROM) 0 % 0-0 N POLYCHROMASIA (test code = POLC) 2+ POIKILOCYTOSIS (test code = POIK) 2+ TOXIC GRANULATION (test code = TOX) 1+ MORPHOLOGY COMMENT (test code = MOC) NORMAL PLATELET ESTIMATE (test code = PLTEST) ADEQUATE PLATELET MORPHOLOGY (test code = PLTMORPH) SIZE VARIABLE IMMATURE FORMS (test code = IMMAT) 0 % 0-0 N - XR CHEST 1 [id number] 06:32:00 FAX: Sammy Mccain MD [place]: B St: [facility] [place] [facility] [birth year][facility][birth year][facility][birth year] Age/S: 59/M [address] Unit #: [id number] Loc: [address] [place] [address] Phys: Sammy Lopez MD Acct: [id number] Dis Date: Status: ADM IN PHONE #: [phone] Exam Date: 12/09/2019 0608 FAX #: [phone] Reason: ASPIRATION EXAMS: CPT CODE: [id number] XR CHEST 1 V [id number] - XR CHEST 1 V, 12/09/2019 5:59 AM Reason For Examination: ASPIRATION Comparison: Nov Location: R16 Findings LUNGS: Nonspecific right basilar opacity concerning for infiltrate or aspiration PLEURA: No pleural effusions CARDIOMEDIASTINAL SILHOUETTE Unchanged IMPRESSION : Nonspecific right basilar opacity concerning for infiltrate or aspiration at 0632 Reported and signed by: Carey Valdez M.D. CC: Eddie Lopez MD Technologist: Steve CHACKO( R) Trnscrd Date/Time/By: 12/09/2019 (0632) : By: [email or web address] Orig Print D/T: S: 12/09/2019 (0635) PAGE 1 Signed Report CBC W/MANUAL [id number] 06:28:00* Test Item Value Reference Range Interpretation Comments WHITE BLOOD CELL (test code = WBC) 24.2 K/mm3 4.5-12.5 H RED BLOOD CELL (test code = RBC) 3.36 mill/mm3 4.0-5.8 L HEMOGLOBIN (test code = HGB) 9.3 gram/dL 13.0-17.5 L HEMATOCRIT (test code = HCT) 29.5 % 42.0-52.0 L MEAN CELL VOLUME (test code = MCV) 87.8 fL 80-98 N MEAN CELL HGB (test code = MCH) 27.7 picogram 27.0-33.0 N MEAN CELL HGB CONCETRATION (test code = MCHC) 31.5 gram/dL 33.0-36. 0 L RED CELL DISTRIBUTION WIDTH (test code = RDW) 18.1 % 11.6-16. 2 H RED CELL DISTRIBUTION WIDTH SD (test code = RDW-SD) 58.3 fL 37 .0-51.0 H PLATELET COUNT (test code = PLT) 381 K/mm3 150-450 RESULT VERIFIED BY REPEAT ANALYSIS MEAN PLATELET VOLUME (test code = MPV) 9.9 fL 6.7-11.0 N IMMATURE GRANULOCYTE % (test code = IG%) 6.3 % 0.0-5.0 H "The appearance of immature granulocytes (myelocytes,pro-myelocytes, meta-myelocytes) in the peripheral blood ofnon- individuals can indicate a response toinfection, inflammation, or other stimulus to the bonemarrow" NUCLEATED RBC % (test code = NRBC%) 0.0 % 0-0 N NEUTROPHIL # (test code = NT#) 19.94 K/mm3 1.8-7.7 H IMMATURE GRANULOCYTE # (test code = IG#) 1.52 x10 3/uL 0-0.03 H LYMPHOCYTE # (test code = LY#) 0.70 K/mm3 1.0-5.0 L MONOCYTE # (test code = MO#) 1.82 K/mm3 0-0.8 H EOSINOPHIL # (test code = EO#) 0.16 K/mm3 0.0-0.5 N BASOPHIL # (test code = BA#) 0.03 K/mm3 0.0-0.2 N NUCLEATED RBC # (test code = NRBC#) 0.00 K/mm3 0.0-0.1 N MANUAL DIFF REQUIRED (test code = MDIFF) YES STAIN ACCEPTABILITY (test code = STN ACCEPTABLE) TOTAL CELLS COUNTED (test code = TCC) #CELLS SEGMENTED NEUTROPHILS (test code = SEG) % 39-69 LYMPHOCYTE (test code = LYMPH) % 25-55 MONOCYTE (test code = MON) % 0-10 EOSINOPHIL (test code = EOS) % 0.0-5.0 CABOT RINGS (test code = CAB) MORPHOLOGY COMMENT (test code = MOC) PLATELET ESTIMATE (test code = PLTEST) PLATELET MORPHOLOGY (test code = PLTMORPH) CBC W/MANUAL [id number] 06:28:00* Test Item Value Reference Range Interpretation Comments WHITE BLOOD CELL (test code = WBC) 24.2 K/mm3 4.5-12.5 H RED BLOOD CELL (test code = RBC) 3.36 mill/mm3 4.0-5.8 L HEMOGLOBIN (test code = HGB) 9.3 gram/dL 13.0-17.5 L HEMATOCRIT (test code = HCT) 29.5 % 42.0-52.0 L MEAN CELL VOLUME (test code = MCV) 87.8 fL 80-98 N MEAN CELL HGB (test code = MCH) 27.7 picogram 27.0-33.0 N MEAN CELL HGB CONCETRATION (test code = MCHC) 31.5 gram/dL 33.0-36. 0 L RED CELL DISTRIBUTION WIDTH (test code = RDW) 18.1 % 11.6-16. 2 H RED CELL DISTRIBUTION WIDTH SD (test code = RDW-SD) 58.3 fL 37 .0-51.0 H PLATELET COUNT (test code = PLT) 381 K/mm3 150-450 RESULT VERIFIED BY REPEAT ANALYSIS MEAN PLATELET VOLUME (test code = MPV) 9.9 fL 6.7-11.0 N IMMATURE GRANULOCYTE % (test code = IG%) 6.3 % 0.0-5.0 H "The appearance of immature granulocytes (myelocytes,pro-myelocytes, meta-myelocytes) in the peripheral blood ofnon- individuals can indicate a response toinfection, inflammation, or other stimulus to the bonemarrow" NUCLEATED RBC % (test code = NRBC%) 0.0 % 0-0 N NEUTROPHIL # (test code = NT#) 19.94 K/mm3 1.8-7.7 H IMMATURE GRANULOCYTE # (test code = IG#) 1.52 x10 3/uL 0-0.03 H LYMPHOCYTE # (test code = LY#) 0.70 K/mm3 1.0-5.0 L MONOCYTE # (test code = MO#) 1.82 K/mm3 0-0.8 H EOSINOPHIL # (test code = EO#) 0.16 K/mm3 0.0-0.5 N BASOPHIL # (test code = BA#) 0.03 K/mm3 0.0-0.2 N NUCLEATED RBC # (test code = NRBC#) 0.00 K/mm3 0.0-0.1 N MANUAL DIFF REQUIRED (test code = MDIFF) YES STAIN ACCEPTABILITY (test code = STN ACCEPTABLE) TOTAL CELLS COUNTED (test code = TCC) #CELLS SEGMENTED NEUTROPHILS (test code = SEG) % 39-69 LYMPHOCYTE (test code = LYMPH) % 25-55 MONOCYTE (test code = MON) % 0-10 EOSINOPHIL (test code = EOS) % 0.0-5.0 MORPHOLOGY COMMENT (test code = MOC) PLATELET ESTIMATE (test code = PLTEST) PLATELET MORPHOLOGY (test code = PLTMORPH) CBC W/MANUAL [id number] 06:28:00* Test Item Value Reference Range Interpretation Comments WHITE BLOOD CELL (test code = WBC) 24.2 K/mm3 4.5-12.5 H RED BLOOD CELL (test code = RBC) 3.36 mill/mm3 4.0-5.8 L HEMOGLOBIN (test code = HGB) 9.3 gram/dL 13.0-17.5 L HEMATOCRIT (test code = HCT) 29.5 % 42.0-52.0 L MEAN CELL VOLUME (test code = MCV) 87.8 fL 80-98 N MEAN CELL HGB (test code = MCH) 27.7 picogram 27.0-33.0 N MEAN CELL HGB CONCETRATION (test code = MCHC) 31.5 gram/dL 33.0-36. 0 L RED CELL DISTRIBUTION WIDTH (test code = RDW) 18.1 % 11.6-16. 2 H RED CELL DISTRIBUTION WIDTH SD (test code = RDW-SD) 58.3 fL 37 .0-51.0 H PLATELET COUNT (test code = PLT) 381 K/mm3 150-450 RESULT VERIFIED BY REPEAT ANALYSIS MEAN PLATELET VOLUME (test code = MPV) 9.9 fL 6.7-11.0 N IMMATURE GRANULOCYTE % (test code = IG%) 6.3 % 0.0-5.0 H "The appearance of immature granulocytes (myelocytes,pro-myelocytes, meta-myelocytes) in the peripheral blood ofnon- individuals can indicate a response toinfection, inflammation, or other stimulus to the bonemarrow" NUCLEATED RBC % (test code = NRBC%) 0.0 % 0-0 N NEUTROPHIL # (test code = NT#) 19.94 K/mm3 1.8-7.7 H IMMATURE GRANULOCYTE # (test code = IG#) 1.52 x10 3/uL 0-0.03 H LYMPHOCYTE # (test code = LY#) 0.70 K/mm3 1.0-5.0 L MONOCYTE # (test code = MO#) 1.82 K/mm3 0-0.8 H EOSINOPHIL # (test code = EO#) 0.16 K/mm3 0.0-0.5 N BASOPHIL # (test code = BA#) 0.03 K/mm3 0.0-0.2 N NUCLEATED RBC # (test code = NRBC#) 0.00 K/mm3 0.0-0.1 N MANUAL DIFF REQUIRED (test code = MDIFF) YES STAIN ACCEPTABILITY (test code = STN ACCEPTABLE) TOTAL CELLS COUNTED (test code = TCC) #CELLS SEGMENTED NEUTROPHILS (test code = SEG) % 39-69 LYMPHOCYTE (test code = LYMPH) % 25-55 MONOCYTE (test code = MON) % 0-10 MORPHOLOGY COMMENT (test code = MOC) PLATELET ESTIMATE (test code = PLTEST) PLATELET MORPHOLOGY (test code = PLTMORPH) CBC W/MANUAL [id number] 06:27:00* Test Item Value Reference Range Interpretation Comments WHITE BLOOD CELL (test code = WBC) 24.2 K/mm3 4.5-12.5 H RED BLOOD CELL (test code = RBC) 3.36 mill/mm3 4.0-5.8 L HEMOGLOBIN (test code = HGB) 9.3 gram/dL 13.0-17.5 L HEMATOCRIT (test code = HCT) 29.5 % 42.0-52.0 L MEAN CELL VOLUME (test code = MCV) 87.8 fL 80-98 N MEAN CELL HGB (test code = MCH) 27.7 picogram 27.0-33.0 N MEAN CELL HGB CONCETRATION (test code = MCHC) 31.5 gram/dL 33.0-36. 0 L RED CELL DISTRIBUTION WIDTH (test code = RDW) 18.1 % 11.6-16. 2 H RED CELL DISTRIBUTION WIDTH SD (test code = RDW-SD) 58.3 fL 37 .0-51.0 H PLATELET COUNT (test code = PLT) 381 K/mm3 150-450 RESULT VERIFIED BY REPEAT ANALYSIS MEAN PLATELET VOLUME (test code = MPV) 9.9 fL 6.7-11.0 N IMMATURE GRANULOCYTE % (test code = IG%) 6.3 % 0.0-5.0 H "The appearance of immature granulocytes (myelocytes,pro-myelocytes, meta-myelocytes) in the peripheral blood ofnon- individuals can indicate a response toinfection, inflammation, or other stimulus to the bon[place]" NUCLEATED RBC % (test code = NRBC%) 0.0 % 0-0 N NEUTROPHIL # (test code = NT#) 19.94 K/mm3 1.8-7.7 H IMMATURE GRANULOCYTE # (test code = IG#) 1.52 x10 3/uL 0-0.03 H LYMPHOCYTE # (test code = LY#) 0.70 K/mm3 1.0-5.0 L MONOCYTE # (test code = MO#) 1.82 K/mm3 0-0.8 H EOSINOPHIL # (test code = EO#) 0.16 K/mm3 0.0-0.5 N BASOPHIL # (test code = BA#) 0.03 K/mm3 0.0-0.2 N NUCLEATED RBC # (test code = NRBC#) 0.00 K/mm3 0.0-0.1 N MANUAL DIFF REQUIRED (test code = MDIFF) YES STAIN ACCEPTABILITY (test code = STN ACCEPTABLE) TOTAL CELLS COUNTED (test code = TCC) #CELLS SEGMENTED NEUTROPHILS (test code = SEG) % 39-69 LYMPHOCYTE (test code = LYMPH) % 25-55 MONOCYTE (test code = MON) % 0-10 EOSINOPHIL (test code = EOS) % 0.0-5.0 CABOT RINGS (test code = CAB) MORPHOLOGY COMMENT (test code = MOC) PLATELET ESTIMATE (test code = PLTEST) PLATELET MORPHOLOGY (test code = PLTMORPH) CBC W/MANUAL [id number] 06:27:00* Test Item Value Reference Range Interpretation Comments WHITE BLOOD CELL (test code = WBC) 24.2 K/mm3 4.5-12.5 H RED BLOOD CELL (test code = RBC) 3.36 mill/mm3 4.0-5.8 L HEMOGLOBIN (test code = HGB) 9.3 gram/dL 13.0-17.5 L HEMATOCRIT (test code = HCT) 29.5 % 42.0-52.0 L MEAN CELL VOLUME (test code = MCV) 87.8 fL 80-98 N MEAN CELL HGB (test code = MCH) 27.7 picogram 27.0-33.0 N MEAN CELL HGB CONCETRATION (test code = MCHC) 31.5 gram/dL 33.0-36. 0 L RED CELL DISTRIBUTION WIDTH (test code = RDW) 18.1 % 11.6-16. 2 H RED CELL DISTRIBUTION WIDTH SD (test code = RDW-SD) 58.3 fL 37 .0-51.0 H PLATELET COUNT (test code = PLT) 381 K/mm3 150-450 RESULT VERIFIED BY REPEAT ANALYSIS MEAN PLATELET VOLUME (test code = MPV) 9.9 fL 6.7-11.0 N IMMATURE GRANULOCYTE % (test code = IG%) 6.3 % 0.0-5.0 H "The appearance of immature granulocytes (myelocytes,pro-myelocytes, meta-myelocytes) in the peripheral blood ofnon- individuals can indicate a response toinfection, inflammation, or other stimulus to the [place]" NUCLEATED RBC % (test code = NRBC%) 0.0 % 0-0 N NEUTROPHIL # (test code = NT#) 19.94 K/mm3 1.8-7.7 H IMMATURE GRANULOCYTE # (test code = IG#) 1.52 x10 3/uL 0-0.03 H LYMPHOCYTE # (test code = LY#) 0.70 K/mm3 1.0-5.0 L MONOCYTE # (test code = MO#) 1.82 K/mm3 0-0.8 H EOSINOPHIL # (test code = EO#) 0.16 K/mm3 0.0-0.5 N BASOPHIL # (test code = BA#) 0.03 K/mm3 0.0-0.2 N NUCLEATED RBC # (test code = NRBC#) 0.00 K/mm3 0.0-0.1 N MANUAL DIFF REQUIRED (test code = MDIFF) YES STAIN ACCEPTABILITY (test code = STN ACCEPTABLE) TOTAL CELLS COUNTED (test code = TCC) #CELLS SEGMENTED NEUTROPHILS (test code = SEG) % 39-69 LYMPHOCYTE (test code = LYMPH) % 25-55 MONOCYTE (test code = MON) % 0-10 EOSINOPHIL (test code = EOS) % 0.0-5.0 CABOT RINGS (test code = CAB) MORPHOLOGY COMMENT (test code = MOC) PLATELET ESTIMATE (test code = PLTEST) PLATELET MORPHOLOGY (test code = PLTMORPH) COMPREHENSIVE METABOLIC [id number] 05:55:00* Test Item Value Reference Range Interpretation Comments SODIUM (test code = NA) 134 mmol/L 136-145 L POTASSIUM (test code = K) 3.3 mmol/L 3.5-5.1 L CHLORIDE (test code = CL) 101.0 mmol/L 98-107 N CARBON DIOXIDE (test code = CO2) 23.0 mmol/L 21-32 N ANION GAP (test code = GAP) 13.3 10-20 N GLUCOSE (test code = GLU) 107 mg/dL 74-106 H BLOOD UREA NITROGEN (test code = BUN) 37 mg/dL 7-18 H GLOMERULAR FILTRATION RATE (test code = GFR) 48 mL/min >=60 Estimated GFR by using Modified MDRD formula.Chronic kidney disease is defined as either kidney damageor GFR <60 mL/min/1.73 m2 for >3 months. CREATININE (test code = CREAT) 1.50 mg/dL 0.7-1.3 H BUN/CREATININE RATIO (test code = BUN/CREA) 24.5 10-20 H TOTAL PROTEIN (test code = PROT) 6.0 gram/dL 6.4-8.2 L ALBUMIN (test code = ALB) 2.3 g/dL 3.4-5.0 L GLOBULIN (test code = GLOB) 3.7 gram/dL 2.7-4.2 N ALBUMIN/GLOBULIN RATIO (test code = A/G) 0.6 0.75-1.50 L CALCIUM (test code = CA) 8.4 mg/dL 8.5-10.1 L BILIRUBIN TOTAL (test code = BILT) 0.30 mg/dL 0.0-1.0 N SGOT/AST (test code = AST) 11 IUnit/L 15-37 L SGPT/ALT (test code = ALT) 7 IUnit/L 12-78 L ALKALINE PHOSPHATASE TOTAL (test code = ALKP) 96 IUnit/L 45-117 N Note change in reference range due to change in reagent. COMPREHENSIVE METABOLIC [id number] 05:45:00* Test Item Value Reference Range Interpretation Comments SODIUM (test code = NA) 134 mmol/L 136-145 L POTASSIUM (test code = K) 3.3 mmol/L 3.5-5.1 L CHLORIDE (test code = CL) 101.0 mmol/L 98-107 N CARBON DIOXIDE (test code = CO2) mmol/L 21-32 ANION GAP (test code = GAP) 10-20 GLUCOSE (test code = GLU) mg/dL 74-106 BLOOD UREA NITROGEN (test code = BUN) mg/dL 7-18 GLOMERULAR FILTRATION RATE (test code = GFR) mL/min >=60 CREATININE (test code = CREAT) mg/dL 0.7-1.3 BUN/CREATININE RATIO (test code = BUN/CREA) 10-20 TOTAL PROTEIN (test code = PROT) gram/dL 6.4-8.2 ALBUMIN (test code = ALB) g/dL 3.4-5.0 GLOBULIN (test code = GLOB) gram/dL 2.7-4.2 ALBUMIN/GLOBULIN RATIO (test code = A/G) 0.75-1.50 CALCIUM (test code = CA) mg/dL 8.5-10.1 BILIRUBIN TOTAL (test code = BILT) mg/dL 0.0-1.0 SGOT/AST (test code = AST) IUnit/L 15-37 SGPT/ALT (test code = ALT) IUnit/L 12-78 ALKALINE PHOSPHATASE TOTAL (test code = ALKP) IUnit/L 45-117 CBC W/MANUAL [id number] 08:10:00* Test Item Value Reference Range Interpretation Comments WHITE BLOOD CELL (test code = WBC) 22.3 K/mm3 4.5-12.5 H RED BLOOD CELL (test code = RBC) 2.95 mill/mm3 4.0-5.8 L HEMOGLOBIN (test code = HGB) 8.3 gram/dL 13.0-17.5 L HEMATOCRIT (test code = HCT) 26.5 % 42.0-52.0 L MEAN CELL VOLUME (test code = MCV) 89.8 fL 80-98 N MEAN CELL HGB (test code = MCH) 28.1 picogram 27.0-33.0 N MEAN CELL HGB CONCETRATION (test code = MCHC) 31.3 gram/dL 33.0-36. 0 L RED CELL DISTRIBUTION WIDTH (test code = RDW) 18.3 % 11.6-16. 2 H RED CELL DISTRIBUTION WIDTH SD (test code = RDW-SD) 60.3 fL 37 .0-51.0 H PLATELET COUNT (test code = PLT) 275 K/mm3 150-450 N MEAN PLATELET VOLUME (test code = MPV) 9.1 fL 6.7-11.0 N IMMATURE GRANULOCYTE % (test code = IG%) 3.3 % 0.0-5.0 N NUCLEATED RBC % (test code = NRBC%) 0.0 % 0-0 N NEUTROPHIL # (test code = NT#) 18.09 K/mm3 1.8-7.7 H IMMATURE GRANULOCYTE # (test code = IG#) 0.74 x10 3/uL 0-0.03 H LYMPHOCYTE # (test code = LY#) 1.01 K/mm3 1.0-5.0 N MONOCYTE # (test code = MO#) 1.79 K/mm3 0-0.8 H EOSINOPHIL # (test code = EO#) 0.46 K/mm3 0.0-0.5 N BASOPHIL # (test code = BA#) 0.18 K/mm3 0.0-0.2 N NUCLEATED RBC # (test code = NRBC#) 0.00 K/mm3 0.0-0.1 N MANUAL DIFF REQUIRED (test code = MDIFF) YES STAIN ACCEPTABILITY (test code = STN ACCEPTABLE) STAIN ACCEPTABLE TOTAL CELLS COUNTED (test code = TCC) 115 #CELLS SEGMENTED NEUTROPHILS (test code = SEG) 74.8 % 39-69 H BAND NEUTROPHIL (test code = BAND) 8.7 % 0-10 N LYMPHOCYTE (test code = LYMPH) 8.7 % 25-55 L REACTIVE LYMPH (test code = RELYMPH) 0.9 % MONOCYTE (test code = MON) 5.2 % 0-10 N EOSINOPHIL (test code = EOS) 0.8 % 0.0-5.0 N BASOPHIL (test code = BASO) 0.9 % 0-1.0 N METAMYELOCYTE (test code = META) 0 % 0-0 N MYELOCYTE (test code = MYELO) 0 % 0.0-0.0 N PROMYELOCYTE (test code = PROM) 0 % 0-0 N POLYCHROMASIA (test code = POLC) 1+ POIKILOCYTOSIS (test code = POIK) 3+ CRENATED CELLS (test code = CREN) 1+ PLATELET ESTIMATE (test code = PLTEST) ADEQUATE PLATELET MORPHOLOGY (test code = PLTMORPH) NORMAL IMMATURE FORMS (test code = IMMAT) 0 % 0-0 N COMPREHENSIVE METABOLIC [id number] 08:00:00* Test Item Value Reference Range Interpretation Comments SODIUM (test code = NA) 135 mmol/L 136-145 L POTASSIUM (test code = K) 2.9 mmol/L 3.5-5.1 L Re sults called to [place] [id number] by TROY 12/08/19 0800Critical results verified and read back by Nurse? Y CHLORIDE (test code = CL) 104.0 mmol/L 98-107 N CARBON DIOXIDE (test code = CO2) 22.0 mmol/L 21-32 N ANION GAP (test code = GAP) 11.9 10-20 N GLUCOSE (test code = GLU) 72 mg/dL 74-106 L BLOOD UREA NITROGEN (test code = BUN) 38 mg/dL 7-18 H GLOMERULAR FILTRATION RATE (test code = GFR) 39 mL/min >=60 Estimated GFR by using Modified MDRD formula.Chronic kidney disease is defined as either kidney damageor GFR <60 mL/min/1.73 m2 for >3 months. CREATININE (test code = CREAT) 1.80 mg/dL 0.7-1.3 H BUN/CREATININE RATIO (test code = BUN/CREA) 20.9 10-20 H TOTAL PROTEIN (test code = PROT) 4.8 gram/dL 6.4-8.2 L ALBUMIN (test code = ALB) 2.1 g/dL 3.4-5.0 L GLOBULIN (test code = GLOB) 2.7 gram/dL 2.7-4.2 N ALBUMIN/GLOBULIN RATIO (test code = A/G) 0.8 0.75-1.50 N CALCIUM (test code = CA) 8.0 mg/dL 8.5-10.1 L BILIRUBIN TOTAL (test code = BILT) 0.30 mg/dL 0.0-1.0 N SGOT/AST (test code = AST) 8 IUnit/L 15-37 L SGPT/ALT (test code = ALT) < 6 IUnit/L 12-78 L ALKALINE PHOSPHATASE TOTAL (test code = ALKP) 67 IUnit/L 45-117 N Note change in reference range due to change in reagent. CBC W/MANUAL [id number] 07:44:00* Test Item Value Reference Range Interpretation Comments WHITE BLOOD CELL (test code = WBC) 22.3 K/mm3 4.5-12.5 H RED BLOOD CELL (test code = RBC) 2.95 mill/mm3 4.0-5.8 L HEMOGLOBIN (test code = HGB) 8.3 gram/dL 13.0-17.5 L HEMATOCRIT (test code = HCT) 26.5 % 42.0-52.0 L MEAN CELL VOLUME (test code = MCV) 89.8 fL 80-98 N MEAN CELL HGB (test code = MCH) 28.1 picogram 27.0-33.0 N MEAN CELL HGB CONCETRATION (test code = MCHC) 31.3 gram/dL 33.0-36. 0 L RED CELL DISTRIBUTION WIDTH (test code = RDW) 18.3 % 11.6-16. 2 H RED CELL DISTRIBUTION WIDTH SD (test code = RDW-SD) 60.3 fL 37 .0-51.0 H PLATELET COUNT (test code = PLT) 275 K/mm3 150-450 N MEAN PLATELET VOLUME (test code = MPV) 9.1 fL 6.7-11.0 N IMMATURE GRANULOCYTE % (test code = IG%) 3.3 % 0.0-5.0 N NUCLEATED RBC % (test code = NRBC%) 0.0 % 0-0 N NEUTROPHIL # (test code = NT#) 18.09 K/mm3 1.8-7.7 H IMMATURE GRANULOCYTE # (test code = IG#) 0.74 x10 3/uL 0-0.03 H LYMPHOCYTE # (test code = LY#) 1.01 K/mm3 1.0-5.0 N MONOCYTE # (test code = MO#) 1.79 K/mm3 0-0.8 H EOSINOPHIL # (test code = EO#) 0.46 K/mm3 0.0-0.5 N BASOPHIL # (test code = BA#) 0.18 K/mm3 0.0-0.2 N NUCLEATED RBC # (test code = NRBC#) 0.00 K/mm3 0.0-0.1 N MANUAL DIFF REQUIRED (test code = MDIFF) YES STAIN ACCEPTABILITY (test code = STN ACCEPTABLE) TOTAL CELLS COUNTED (test code = TCC) #CELLS SEGMENTED NEUTROPHILS (test code = SEG) % 39-69 LYMPHOCYTE (test code = LYMPH) % 25-55 MONOCYTE (test code = MON) % 0-10 EOSINOPHIL (test code = EOS) % 0.0-5.0 CABOT RINGS (test code = CAB) MORPHOLOGY COMMENT (test code = MOC) PLATELET ESTIMATE (test code = PLTEST) PLATELET MORPHOLOGY (test code = PLTMORPH) CBC W/MANUAL [id number] 07:44:00* Test Item Value Reference Range Interpretation Comments WHITE BLOOD CELL (test code = WBC) 22.3 K/mm3 4.5-12.5 H RED BLOOD CELL (test code = RBC) 2.95 mill/mm3 4.0-5.8 L HEMOGLOBIN (test code = HGB) 8.3 gram/dL 13.0-17.5 L HEMATOCRIT (test code = HCT) 26.5 % 42.0-52.0 L MEAN CELL VOLUME (test code = MCV) 89.8 fL 80-98 N MEAN CELL HGB (test code = MCH) 28.1 picogram 27.0-33.0 N MEAN CELL HGB CONCETRATION (test code = MCHC) 31.3 gram/dL 33.0-36. 0 L RED CELL DISTRIBUTION WIDTH (test code = RDW) 18.3 % 11.6-16. 2 H RED CELL DISTRIBUTION WIDTH SD (test code = RDW-SD) 60.3 fL 37 .0-51.0 H PLATELET COUNT (test code = PLT) 275 K/mm3 150-450 N MEAN PLATELET VOLUME (test code = MPV) 9.1 fL 6.7-11.0 N IMMATURE GRANULOCYTE % (test code = IG%) 3.3 % 0.0-5.0 N NUCLEATED RBC % (test code = NRBC%) 0.0 % 0-0 N NEUTROPHIL # (test code = NT#) 18.09 K/mm3 1.8-7.7 H IMMATURE GRANULOCYTE # (test code = IG#) 0.74 x10 3/uL 0-0.03 H LYMPHOCYTE # (test code = LY#) 1.01 K/mm3 1.0-5.0 N MONOCYTE # (test code = MO#) 1.79 K/mm3 0-0.8 H EOSINOPHIL # (test code = EO#) 0.46 K/mm3 0.0-0.5 N BASOPHIL # (test code = BA#) 0.18 K/mm3 0.0-0.2 N NUCLEATED RBC # (test code = NRBC#) 0.00 K/mm3 0.0-0.1 N MANUAL DIFF REQUIRED (test code = MDIFF) YES STAIN ACCEPTABILITY (test code = STN ACCEPTABLE) TOTAL CELLS COUNTED (test code = TCC) #CELLS SEGMENTED NEUTROPHILS (test code = SEG) % 39-69 LYMPHOCYTE (test code = LYMPH) % 25-55 MONOCYTE (test code = MON) % 0-10 EOSINOPHIL (test code = EOS) % 0.0-5.0 CABOT RINGS (test code = CAB) MORPHOLOGY COMMENT (test code = MOC) PLATELET ESTIMATE (test code = PLTEST) PLATELET MORPHOLOGY (test code = PLTMORPH) CBC W/MANUAL [id number] 07:44:00* Test Item Value Reference Range Interpretation Comments WHITE BLOOD CELL (test code = WBC) 22.3 K/mm3 4.5-12.5 H RED BLOOD CELL (test code = RBC) 2.95 mill/mm3 4.0-5.8 L HEMOGLOBIN (test code = HGB) 8.3 gram/dL 13.0-17.5 L HEMATOCRIT (test code = HCT) 26.5 % 42.0-52.0 L MEAN CELL VOLUME (test code = MCV) 89.8 fL 80-98 N MEAN CELL HGB (test code = MCH) 28.1 picogram 27.0-33.0 N MEAN CELL HGB CONCETRATION (test code = MCHC) 31.3 gram/dL 33.0-36. 0 L RED CELL DISTRIBUTION WIDTH (test code = RDW) 18.3 % 11.6-16. 2 H RED CELL DISTRIBUTION WIDTH SD (test code = RDW-SD) 60.3 fL 37 .0-51.0 H PLATELET COUNT (test code = PLT) 275 K/mm3 150-450 N MEAN PLATELET VOLUME (test code = MPV) 9.1 fL 6.7-11.0 N IMMATURE GRANULOCYTE % (test code = IG%) 3.3 % 0.0-5.0 N NUCLEATED RBC % (test code = NRBC%) 0.0 % 0-0 N NEUTROPHIL # (test code = NT#) 18.09 K/mm3 1.8-7.7 H IMMATURE GRANULOCYTE # (test code = IG#) 0.74 x10 3/uL 0-0.03 H LYMPHOCYTE # (test code = LY#) 1.01 K/mm3 1.0-5.0 N MONOCYTE # (test code = MO#) 1.79 K/mm3 0-0.8 H EOSINOPHIL # (test code = EO#) 0.46 K/mm3 0.0-0.5 N BASOPHIL # (test code = BA#) 0.18 K/mm3 0.0-0.2 N NUCLEATED RBC # (test code = NRBC#) 0.00 K/mm3 0.0-0.1 N MANUAL DIFF REQUIRED (test code = MDIFF) YES STAIN ACCEPTABILITY (test code = STN ACCEPTABLE) TOTAL CELLS COUNTED (test code = TCC) #CELLS SEGMENTED NEUTROPHILS (test code = SEG) % 39-69 LYMPHOCYTE (test code = LYMPH) % 25-55 MONOCYTE (test code = MON) % 0-10 EOSINOPHIL (test code = EOS) % 0.0-5.0 MORPHOLOGY COMMENT (test code = MOC) PLATELET ESTIMATE (test code = PLTEST) PLATELET MORPHOLOGY (test code = PLTMORPH) CBC W/MANUAL [id number] 07:44:00* Test Item Value Reference Range Interpretation Comments WHITE BLOOD CELL (test code = WBC) 22.3 K/mm3 4.5-12.5 H RED BLOOD CELL (test code = RBC) 2.95 mill/mm3 4.0-5.8 L HEMOGLOBIN (test code = HGB) 8.3 gram/dL 13.0-17.5 L HEMATOCRIT (test code = HCT) 26.5 % 42.0-52.0 L MEAN CELL VOLUME (test code = MCV) 89.8 fL 80-98 N MEAN CELL HGB (test code = MCH) 28.1 picogram 27.0-33.0 N MEAN CELL HGB CONCETRATION (test code = MCHC) 31.3 gram/dL 33.0-36. 0 L RED CELL DISTRIBUTION WIDTH (test code = RDW) 18.3 % 11.6-16. 2 H RED CELL DISTRIBUTION WIDTH SD (test code = RDW-SD) 60.3 fL 37 .0-51.0 H PLATELET COUNT (test code = PLT) 275 K/mm3 150-450 N MEAN PLATELET VOLUME (test code = MPV) 9.1 fL 6.7-11.0 N IMMATURE GRANULOCYTE % (test code = IG%) 3.3 % 0.0-5.0 N NUCLEATED RBC % (test code = NRBC%) 0.0 % 0-0 N NEUTROPHIL # (test code = NT#) 18.09 K/mm3 1.8-7.7 H IMMATURE GRANULOCYTE # (test code = IG#) 0.74 x10 3/uL 0-0.03 H LYMPHOCYTE # (test code = LY#) 1.01 K/mm3 1.0-5.0 N MONOCYTE # (test code = MO#) 1.79 K/mm3 0-0.8 H EOSINOPHIL # (test code = EO#) 0.46 K/mm3 0.0-0.5 N BASOPHIL # (test code = BA#) 0.18 K/mm3 0.0-0.2 N NUCLEATED RBC # (test code = NRBC#) 0.00 K/mm3 0.0-0.1 N MANUAL DIFF REQUIRED (test code = MDIFF) YES STAIN ACCEPTABILITY (test code = STN ACCEPTABLE) TOTAL CELLS COUNTED (test code = TCC) #CELLS SEGMENTED NEUTROPHILS (test code = SEG) % 39-69 LYMPHOCYTE (test code = LYMPH) % 25-55 MONOCYTE (test code = MON) % 0-10 MORPHOLOGY COMMENT (test code = MOC) PLATELET ESTIMATE (test code = PLTEST) PLATELET MORPHOLOGY (test code = PLTMORPH) CBC W/MANUAL [id number] 07:44:00* Test Item Value Reference Range Interpretation Comments WHITE BLOOD CELL (test code = WBC) 22.3 K/mm3 4.5-12.5 H RED BLOOD CELL (test code = RBC) 2.95 mill/mm3 4.0-5.8 L HEMOGLOBIN (test code = HGB) 8.3 gram/dL 13.0-17.5 L HEMATOCRIT (test code = HCT) 26.5 % 42.0-52.0 L MEAN CELL VOLUME (test code = MCV) 89.8 fL 80-98 N MEAN CELL HGB (test code = MCH) 28.1 picogram 27.0-33.0 N MEAN CELL HGB CONCETRATION (test code = MCHC) 31.3 gram/dL 33.0-36. 0 L RED CELL DISTRIBUTION WIDTH (test code = RDW) 18.3 % 11.6-16. 2 H RED CELL DISTRIBUTION WIDTH SD (test code = RDW-SD) 60.3 fL 37 .0-51.0 H PLATELET COUNT (test code = PLT) 275 K/mm3 150-450 N MEAN PLATELET VOLUME (test code = MPV) 9.1 fL 6.7-11.0 N IMMATURE GRANULOCYTE % (test code = IG%) 3.3 % 0.0-5.0 N NUCLEATED RBC % (test code = NRBC%) 0.0 % 0-0 N NEUTROPHIL # (test code = NT#) 18.09 K/mm3 1.8-7.7 H IMMATURE GRANULOCYTE # (test code = IG#) 0.74 x10 3/uL 0-0.03 H LYMPHOCYTE # (test code = LY#) 1.01 K/mm3 1.0-5.0 N MONOCYTE # (test code = MO#) 1.79 K/mm3 0-0.8 H EOSINOPHIL # (test code = EO#) 0.46 K/mm3 0.0-0.5 N BASOPHIL # (test code = BA#) 0.18 K/mm3 0.0-0.2 N NUCLEATED RBC # (test code = NRBC#) 0.00 K/mm3 0.0-0.1 N MANUAL DIFF REQUIRED (test code = MDIFF) YES STAIN ACCEPTABILITY (test code = STN ACCEPTABLE) TOTAL CELLS COUNTED (test code = TCC) #CELLS SEGMENTED NEUTROPHILS (test code = SEG) % 39-69 LYMPHOCYTE (test code = LYMPH) % 25-55 MONOCYTE (test code = MON) % 0-10 EOSINOPHIL (test code = EOS) % 0.0-5.0 CABOT RINGS (test code = CAB) MORPHOLOGY COMMENT (test code = MOC) PLATELET ESTIMATE (test code = PLTEST) PLATELET MORPHOLOGY (test code = PLTMORPH) [id number] 10:48:00* Test Item Value Reference Range Interpretation Comments MAGNESIUM (test code = MAG) 1.0 mg/dL 1.8-2.4 L SPECIMEN COMMENTS: add onCOMMENTS TO CHROMIUM PLATER: add onAB HIV 1 07:36:00* Test Item Value Reference Range Interpretation Comments AB HIV 1 2 (test code = [id number]) Nonreactive NonReactive It is recognized that currently available assays for thedetection of antibodies to HIV-1 and/or HIV-2 may notdetect all infected individuals. A negative test result doesnot exclude the possibility of exposure to or infection withHIV. HIV antibodies may be undetectable in some stages ofthe infection and in some clinical conditions. CBC W/MANUAL [id number] 05:17:00* Test Item Value Reference Range Interpretation Comments WHITE BLOOD CELL (test code = WBC) 21.9 K/mm3 4.5-12.5 H RED BLOOD CELL (test code = RBC) 3.06 mill/mm3 4.0-5.8 L HEMOGLOBIN (test code = HGB) 8.5 gram/dL 13.0-17.5 L HEMATOCRIT (test code = HCT) 27.2 % 42.0-52.0 L MEAN CELL VOLUME (test code = MCV) 88.9 fL 80-98 N MEAN CELL HGB (test code = MCH) 27.8 picogram 27.0-33.0 N MEAN CELL HGB CONCETRATION (test code = MCHC) 31.3 gram/dL 33.0-36. 0 L RED CELL DISTRIBUTION WIDTH (test code = RDW) 18.2 % 11.6-16. 2 H RED CELL DISTRIBUTION WIDTH SD (test code = RDW-SD) 59.8 fL 37 .0-51.0 H PLATELET COUNT (test code = PLT) 288 K/mm3 150-450 N MEAN PLATELET VOLUME (test code = MPV) 10.1 fL 6.7-11.0 N NEUTROPHIL % (test code = NT%) 81.6 % 39.0-69.0 H IMMATURE GRANULOCYTE % (test code = IG%) 4.0 % 0.0-5.0 N LYMPHOCYTE % (test code = LY%) 3.5 % 25.0-55.0 L MONOCYTE % (test code = MO%) 10.6 % 0.0-10.0 H EOSINOPHIL % (test code = EO%) 0.1 % 0.0-5.0 N BASOPHIL % (test code = BA%) 0.2 % 0.0-1.0 N NUCLEATED RBC % (test code = NRBC%) 0.0 % 0-0 N NEUTROPHIL # (test code = NT#) 17.88 K/mm3 1.8-7.7 H IMMATURE GRANULOCYTE # (test code = IG#) 0.88 x10 3/uL 0-0.03 H LYMPHOCYTE # (test code = LY#) 0.77 K/mm3 1.0-5.0 L MONOCYTE # (test code = MO#) 2.33 K/mm3 0-0.8 H EOSINOPHIL # (test code = EO#) 0.02 K/mm3 0.0-0.5 N BASOPHIL # (test code = BA#) 0.05 K/mm3 0.0-0.2 N NUCLEATED RBC # (test code = NRBC#) 0.00 K/mm3 0.0-0.1 N MANUAL DIFF REQUIRED (test code = MDIFF) DIFF NEEDED STAIN ACCEPTABILITY (test code = STN ACCEPTABLE) STAIN ACCEPTABLE TOTAL CELLS COUNTED (test code = TCC) 115 #CELLS SEGMENTED NEUTROPHILS (test code = SEG) 77.4 % 39-69 H BAND NEUTROPHIL (test code = BAND) 3.5 % 0-10 N LYMPHOCYTE (test code = LYMPH) 7.8 % 25-55 L REACTIVE LYMPH (test code = RELYMPH) 0 % MONOCYTE (test code = MON) 10.4 % 0-10 H EOSINOPHIL (test code = EOS) 0 % 0.0-5.0 N BASOPHIL (test code = BASO) 0.9 % 0-1.0 N METAMYELOCYTE (test code = META) 0 % 0-0 N MYELOCYTE (test code = MYELO) 0 % 0.0-0.0 N PROMYELOCYTE (test code = PROM) 0 % 0-0 N POLYCHROMASIA (test code = POLC) 1+ POIKILOCYTOSIS (test code = POIK) 2+ ANISOCYTOSIS (test code = ANISO) 2+ KEV CELLS (test code = KEV) 1+ NONE OVALOCYTES (test code = OVAL) 1+ MORPHOLOGY COMMENT (test code = MOC) TEST NOT PERFORMED PLATELET ESTIMATE (test code = PLTEST) ADEQUATE PLATELET MORPHOLOGY (test code = PLTMORPH) NORMAL IMMATURE FORMS (test code = IMMAT) 0 % 0-0 N COMPREHENSIVE METABOLIC [id number] 05:07:00* Test Item Value Reference Range Interpretation Comments SODIUM (test code = NA) 136 mmol/L 136-145 N POTASSIUM (test code = K) 2.8 mmol/L 3.5-5.1 LL Re sults called [place] [id number] by [email or web address] 12/07/19 [id number] results verified and read back by Nurse? Y CHLORIDE (test code = CL) 105.0 mmol/L 98-107 N CARBON DIOXIDE (test code = CO2) 19.0 mmol/L 21-32 L ANION GAP (test code = GAP) 14.8 10-20 N GLUCOSE (test code = GLU) 79 mg/dL 74-106 N BLOOD UREA NITROGEN (test code = BUN) 32 mg/dL 7-18 H GLOMERULAR FILTRATION RATE (test code = GFR) 34 mL/min >=60 Estimated GFR by using Modified MDRD formula.Chronic kidney disease is defined as either kidney damageor GFR <60 mL/min/1.73 m2 for >3 months. CREATININE (test code = CREAT) 2.00 mg/dL 0.7-1.3 H BUN/CREATININE RATIO (test code = BUN/CREA) 16.2 10-20 N TOTAL PROTEIN (test code = PROT) 5.7 gram/dL 6.4-8.2 L ALBUMIN (test code = ALB) 2.4 g/dL 3.4-5.0 L GLOBULIN (test code = GLOB) 3.3 gram/dL 2.7-4.2 N ALBUMIN/GLOBULIN RATIO (test code = A/G) 0.7 0.75-1.50 L CALCIUM (test code = CA) 8.2 mg/dL 8.5-10.1 L BILIRUBIN TOTAL (test code = BILT) 0.30 mg/dL 0.0-1.0 N SGOT/AST (test code = AST) 13 IUnit/L 15-37 L SGPT/ALT (test code = ALT) < 6 IUnit/L 12-78 L ALKALINE PHOSPHATASE TOTAL (test code = ALKP) 65 IUnit/L 45-117 N Note change in reference range due to change in reagent. CBC W/MANUAL [id number] 04:39:00* Test Item Value Reference Range Interpretation Comments WHITE BLOOD CELL (test code = WBC) 21.9 K/mm3 4.5-12.5 H RED BLOOD CELL (test code = RBC) 3.06 mill/mm3 4.0-5.8 L HEMOGLOBIN (test code = HGB) 8.5 gram/dL 13.0-17.5 L HEMATOCRIT (test code = HCT) 27.2 % 42.0-52.0 L MEAN CELL VOLUME (test code = MCV) 88.9 fL 80-98 N MEAN CELL HGB (test code = MCH) 27.8 picogram 27.0-33.0 N MEAN CELL HGB CONCETRATION (test code = MCHC) 31.3 gram/dL 33.0-36. 0 L RED CELL DISTRIBUTION WIDTH (test code = RDW) 18.2 % 11.6-16. 2 H RED CELL DISTRIBUTION WIDTH SD (test code = RDW-SD) 59.8 fL 37 .0-51.0 H PLATELET COUNT (test code = PLT) 288 K/mm3 150-450 N MEAN PLATELET VOLUME (test code = MPV) 10.1 fL 6.7-11.0 N NEUTROPHIL % (test code = NT%) 81.6 % 39.0-69.0 H IMMATURE GRANULOCYTE % (test code = IG%) 4.0 % 0.0-5.0 N LYMPHOCYTE % (test code = LY%) 3.5 % 25.0-55.0 L MONOCYTE % (test code = MO%) 10.6 % 0.0-10.0 H EOSINOPHIL % (test code = EO%) 0.1 % 0.0-5.0 N BASOPHIL % (test code = BA%) 0.2 % 0.0-1.0 N NUCLEATED RBC % (test code = NRBC%) 0.0 % 0-0 N NEUTROPHIL # (test code = NT#) 17.88 K/mm3 1.8-7.7 H IMMATURE GRANULOCYTE # (test code = IG#) 0.88 x10 3/uL 0-0.03 H LYMPHOCYTE # (test code = LY#) 0.77 K/mm3 1.0-5.0 L MONOCYTE # (test code = MO#) 2.33 K/mm3 0-0.8 H EOSINOPHIL # (test code = EO#) 0.02 K/mm3 0.0-0.5 N BASOPHIL # (test code = BA#) 0.05 K/mm3 0.0-0.2 N NUCLEATED RBC # (test code = NRBC#) 0.00 K/mm3 0.0-0.1 N MANUAL DIFF REQUIRED (test code = MDIFF) DIFF NEEDED STAIN ACCEPTABILITY (test code = STN ACCEPTABLE) TOTAL CELLS COUNTED (test code = TCC) #CELLS SEGMENTED NEUTROPHILS (test code = SEG) % 39-69 LYMPHOCYTE (test code = LYMPH) % 25-55 MONOCYTE (test code = MON) % 0-10 EOSINOPHIL (test code = EOS) % 0.0-5.0 CABOT RINGS (test code = CAB) MORPHOLOGY COMMENT (test code = MOC) PLATELET ESTIMATE (test code = PLTEST) PLATELET MORPHOLOGY (test code = PLTMORPH) CBC W/MANUAL [id number] 04:39:00* Test Item Value Reference Range Interpretation Comments WHITE BLOOD CELL (test code = WBC) 21.9 K/mm3 4.5-12.5 H RED BLOOD CELL (test code = RBC) 3.06 mill/mm3 4.0-5.8 L HEMOGLOBIN (test code = HGB) 8.5 gram/dL 13.0-17.5 L HEMATOCRIT (test code = HCT) 27.2 % 42.0-52.0 L MEAN CELL VOLUME (test code = MCV) 88.9 fL 80-98 N MEAN CELL HGB (test code = MCH) 27.8 picogram 27.0-33.0 N MEAN CELL HGB CONCETRATION (test code = MCHC) 31.3 gram/dL 33.0-36. 0 L RED CELL DISTRIBUTION WIDTH (test code = RDW) 18.2 % 11.6-16. 2 H RED CELL DISTRIBUTION WIDTH SD (test code = RDW-SD) 59.8 fL 37 .0-51.0 H PLATELET COUNT (test code = PLT) 288 K/mm3 150-450 N MEAN PLATELET VOLUME (test code = MPV) 10.1 fL 6.7-11.0 N NEUTROPHIL % (test code = NT%) 81.6 % 39.0-69.0 H IMMATURE GRANULOCYTE % (test code = IG%) 4.0 % 0.0-5.0 N LYMPHOCYTE % (test code = LY%) 3.5 % 25.0-55.0 L MONOCYTE % (test code = MO%) 10.6 % 0.0-10.0 H EOSINOPHIL % (test code = EO%) 0.1 % 0.0-5.0 N BASOPHIL % (test code = BA%) 0.2 % 0.0-1.0 N NUCLEATED RBC % (test code = NRBC%) 0.0 % 0-0 N NEUTROPHIL # (test code = NT#) 17.88 K/mm3 1.8-7.7 H IMMATURE GRANULOCYTE # (test code = IG#) 0.88 x10 3/uL 0-0.03 H LYMPHOCYTE # (test code = LY#) 0.77 K/mm3 1.0-5.0 L MONOCYTE # (test code = MO#) 2.33 K/mm3 0-0.8 H EOSINOPHIL # (test code = EO#) 0.02 K/mm3 0.0-0.5 N BASOPHIL # (test code = BA#) 0.05 K/mm3 0.0-0.2 N NUCLEATED RBC # (test code = NRBC#) 0.00 K/mm3 0.0-0.1 N MANUAL DIFF REQUIRED (test code = MDIFF) DIFF NEEDED STAIN ACCEPTABILITY (test code = STN ACCEPTABLE) TOTAL CELLS COUNTED (test code = TCC) #CELLS SEGMENTED NEUTROPHILS (test code = SEG) % 39-69 LYMPHOCYTE (test code = LYMPH) % 25-55 MONOCYTE (test code = MON) % 0-10 EOSINOPHIL (test code = EOS) % 0.0-5.0 CABOT RINGS (test code = CAB) MORPHOLOGY COMMENT (test code = MOC) PLATELET ESTIMATE (test code = PLTEST) PLATELET MORPHOLOGY (test code = PLTMORPH) CBC W/MANUAL [id number] 04:39:00* Test Item Value Reference Range Interpretation Comments WHITE BLOOD CELL (test code = WBC) 21.9 K/mm3 4.5-12.5 H RED BLOOD CELL (test code = RBC) 3.06 mill/mm3 4.0-5.8 L HEMOGLOBIN (test code = HGB) 8.5 gram/dL 13.0-17.5 L HEMATOCRIT (test code = HCT) 27.2 % 42.0-52.0 L MEAN CELL VOLUME (test code = MCV) 88.9 fL 80-98 N MEAN CELL HGB (test code = MCH) 27.8 picogram 27.0-33.0 N MEAN CELL HGB CONCETRATION (test code = MCHC) 31.3 gram/dL 33.0-36. 0 L RED CELL DISTRIBUTION WIDTH (test code = RDW) 18.2 % 11.6-16. 2 H RED CELL DISTRIBUTION WIDTH SD (test code = RDW-SD) 59.8 fL 37 .0-51.0 H PLATELET COUNT (test code = PLT) 288 K/mm3 150-450 N MEAN PLATELET VOLUME (test code = MPV) 10.1 fL 6.7-11.0 N NEUTROPHIL % (test code = NT%) 81.6 % 39.0-69.0 H IMMATURE GRANULOCYTE % (test code = IG%) 4.0 % 0.0-5.0 N LYMPHOCYTE % (test code = LY%) 3.5 % 25.0-55.0 L MONOCYTE % (test code = MO%) 10.6 % 0.0-10.0 H EOSINOPHIL % (test code = EO%) 0.1 % 0.0-5.0 N BASOPHIL % (test code = BA%) 0.2 % 0.0-1.0 N NUCLEATED RBC % (test code = NRBC%) 0.0 % 0-0 N NEUTROPHIL # (test code = NT#) 17.88 K/mm3 1.8-7.7 H IMMATURE GRANULOCYTE # (test code = IG#) 0.88 x10 3/uL 0-0.03 H LYMPHOCYTE # (test code = LY#) 0.77 K/mm3 1.0-5.0 L MONOCYTE # (test code = MO#) 2.33 K/mm3 0-0.8 H EOSINOPHIL # (test code = EO#) 0.02 K/mm3 0.0-0.5 N BASOPHIL # (test code = BA#) 0.05 K/mm3 0.0-0.2 N NUCLEATED RBC # (test code = NRBC#) 0.00 K/mm3 0.0-0.1 N MANUAL DIFF REQUIRED (test code = MDIFF) DIFF NEEDED STAIN ACCEPTABILITY (test code = STN ACCEPTABLE) TOTAL CELLS COUNTED (test code = TCC) #CELLS SEGMENTED NEUTROPHILS (test code = SEG) % 39-69 LYMPHOCYTE (test code = LYMPH) % 25-55 MONOCYTE (test code = MON) % 0-10 EOSINOPHIL (test code = EOS) % 0.0-5.0 MORPHOLOGY COMMENT (test code = MOC) PLATELET ESTIMATE (test code = PLTEST) PLATELET MORPHOLOGY (test code = PLTMORPH) CBC W/MANUAL [id number] 04:39:00* Test Item Value Reference Range Interpretation Comments WHITE BLOOD CELL (test code = WBC) 21.9 K/mm3 4.5-12.5 H RED BLOOD CELL (test code = RBC) 3.06 mill/mm3 4.0-5.8 L HEMOGLOBIN (test code = HGB) 8.5 gram/dL 13.0-17.5 L HEMATOCRIT (test code = HCT) 27.2 % 42.0-52.0 L MEAN CELL VOLUME (test code = MCV) 88.9 fL 80-98 N MEAN CELL HGB (test code = MCH) 27.8 picogram 27.0-33.0 N MEAN CELL HGB CONCETRATION (test code = MCHC) 31.3 gram/dL 33.0-36. 0 L RED CELL DISTRIBUTION WIDTH (test code = RDW) 18.2 % 11.6-16. 2 H RED CELL DISTRIBUTION WIDTH SD (test code = RDW-SD) 59.8 fL 37 .0-51.0 H PLATELET COUNT (test code = PLT) 288 K/mm3 150-450 N MEAN PLATELET VOLUME (test code = MPV) 10.1 fL 6.7-11.0 N NEUTROPHIL % (test code = NT%) 81.6 % 39.0-69.0 H IMMATURE GRANULOCYTE % (test code = IG%) 4.0 % 0.0-5.0 N LYMPHOCYTE % (test code = LY%) 3.5 % 25.0-55.0 L MONOCYTE % (test code = MO%) 10.6 % 0.0-10.0 H EOSINOPHIL % (test code = EO%) 0.1 % 0.0-5.0 N BASOPHIL % (test code = BA%) 0.2 % 0.0-1.0 N NUCLEATED RBC % (test code = NRBC%) 0.0 % 0-0 N NEUTROPHIL # (test code = NT#) 17.88 K/mm3 1.8-7.7 H IMMATURE GRANULOCYTE # (test code = IG#) 0.88 x10 3/uL 0-0.03 H LYMPHOCYTE # (test code = LY#) 0.77 K/mm3 1.0-5.0 L MONOCYTE # (test code = MO#) 2.33 K/mm3 0-0.8 H EOSINOPHIL # (test code = EO#) 0.02 K/mm3 0.0-0.5 N BASOPHIL # (test code = BA#) 0.05 K/mm3 0.0-0.2 N NUCLEATED RBC # (test code = NRBC#) 0.00 K/mm3 0.0-0.1 N MANUAL DIFF REQUIRED (test code = MDIFF) DIFF NEEDED STAIN ACCEPTABILITY (test code = STN ACCEPTABLE) TOTAL CELLS COUNTED (test code = TCC) #CELLS SEGMENTED NEUTROPHILS (test code = SEG) % 39-69 LYMPHOCYTE (test code = LYMPH) % 25-55 MONOCYTE (test code = MON) % 0-10 MORPHOLOGY COMMENT (test code = MOC) PLATELET ESTIMATE (test code = PLTEST) PLATELET MORPHOLOGY (test code = PLTMORPH) CBC W/MANUAL [id number] 04:39:00* Test Item Value Reference Range Interpretation Comments WHITE BLOOD CELL (test code = WBC) 21.9 K/mm3 4.5-12.5 H RED BLOOD CELL (test code = RBC) 3.06 mill/mm3 4.0-5.8 L HEMOGLOBIN (test code = HGB) 8.5 gram/dL 13.0-17.5 L HEMATOCRIT (test code = HCT) 27.2 % 42.0-52.0 L MEAN CELL VOLUME (test code = MCV) 88.9 fL 80-98 N MEAN CELL HGB (test code = MCH) 27.8 picogram 27.0-33.0 N MEAN CELL HGB CONCETRATION (test code = MCHC) 31.3 gram/dL 33.0-36. 0 L RED CELL DISTRIBUTION WIDTH (test code = RDW) 18.2 % 11.6-16. 2 H RED CELL DISTRIBUTION WIDTH SD (test code = RDW-SD) 59.8 fL 37 .0-51.0 H PLATELET COUNT (test code = PLT) 288 K/mm3 150-450 N MEAN PLATELET VOLUME (test code = MPV) 10.1 fL 6.7-11.0 N NEUTROPHIL % (test code = NT%) 81.6 % 39.0-69.0 H IMMATURE GRANULOCYTE % (test code = IG%) 4.0 % 0.0-5.0 N LYMPHOCYTE % (test code = LY%) 3.5 % 25.0-55.0 L MONOCYTE % (test code = MO%) 10.6 % 0.0-10.0 H EOSINOPHIL % (test code = EO%) 0.1 % 0.0-5.0 N BASOPHIL % (test code = BA%) 0.2 % 0.0-1.0 N NUCLEATED RBC % (test code = NRBC%) 0.0 % 0-0 N NEUTROPHIL # (test code = NT#) 17.88 K/mm3 1.8-7.7 H IMMATURE GRANULOCYTE # (test code = IG#) 0.88 x10 3/uL 0-0.03 H LYMPHOCYTE # (test code = LY#) 0.77 K/mm3 1.0-5.0 L MONOCYTE # (test code = MO#) 2.33 K/mm3 0-0.8 H EOSINOPHIL # (test code = EO#) 0.02 K/mm3 0.0-0.5 N BASOPHIL # (test code = BA#) 0.05 K/mm3 0.0-0.2 N NUCLEATED RBC # (test code = NRBC#) 0.00 K/mm3 0.0-0.1 N MANUAL DIFF REQUIRED (test code = MDIFF) DIFF NEEDED STAIN ACCEPTABILITY (test code = STN ACCEPTABLE) TOTAL CELLS COUNTED (test code = TCC) #CELLS SEGMENTED NEUTROPHILS (test code = SEG) % 39-69 LYMPHOCYTE (test code = LYMPH) % 25-55 MONOCYTE (test code = MON) % 0-10 EOSINOPHIL (test code = EOS) % 0.0-5.0 CABOT RINGS (test code = CAB) MORPHOLOGY COMMENT (test code = MOC) PLATELET ESTIMATE (test code = PLTEST) PLATELET MORPHOLOGY (test code = PLTMORPH) [id number] 21:57:00* Test Item Value Reference Range Interpretation Comments GLUBED (test code = GLUBED) 82 mg/dL 74-106 N Performed by certified sleeve presser operator at [facility] B-TYPE NATRIURETIC [id number] 09:42:00* Test Item Value Reference Range Interpretation Comments B-TYPE NATRIURETIC PEPTIDE (test code = BNP) 442.53 pgram/mL 0-100 H Has Patient received Natrecor? NO- XR CHEST 1 [id number] 08:47:00 FAX: Sammy Mccain MD [place]: B St: ADM FAX: Carole Cervantes NATUROPATHIC ONCOLOGY PROVIDER [phone] Name: [place] BR[place] : 1960 Age/S: 59/[facility] [address] [facility] Unit #: [id number] Loc: V.[address] [place] [address] Phys: Carole Deutsch NP Acct: [id number] Dis Date: Status: ADM IN PHONE #: [phone] Exam Date: 12/06/2019800 FAX #: [phone] Reason: hypotension EXAMS: CPT CODE: [id number] XR CHEST 1 V 04501 REASON FOR EXAM: hypotension Exam Order Da te: 12/06/2019 12:00 AM Ordering M.DAngus: Carole Deutsch NP PROCEDURE: - XR CHEST 1 V COMPARISON: Chest x-ray and CT scan the previous morning FINDINGS/ IMPRESSION: Lung v olumes are diminished. There are also opacities in the bilateral retroca rdiac spaces which may represent any comminution of small layering effus ions, atelectatic changes, and consolidations. These opacities appear sl ightly more pronounced from the previous exam. Cardiac mediast inal silhouette appears prominent although this may be partly due to the hypoinflation of the lungs. Sternotomy wires are unchanged. There is wi dening of the left acromioclavicular joint which may be due to prior eleanor bridgette and/or infection. Upper abdomen is radiographically unrem arkable. Location: [facility] at 0847 Reported and signed b y: Lico Garcia MD CC: Sammy Lopez MD; Carole Deutsch NP Technologist: RT Tino(Sedrick) Bertin rnscrd Date/Time/By: 12/06/2019 (7826) : By: [email or web address] Orig Print D/T: S: 12/06/2019 (6542) PAGE 1 Sign ed Report LACTIC [id number] 02:02:00* Test Item Value Reference Range Interpretation Comments LACTIC ACID (test code = LACT) 2.4 mmol/L 0.4-1.9 HH Results called to [id number] by SEVEN 12/06/19 0201Critical results verified and read back by Nurse? Y [id number] 00:19:00* Test Item Value Reference Range Interpretation Comments GLUBED (test code = GLUBED) 80 mg/dL 74-106 N Performed by certified sleeve presser operator at [facility] CBC W/MANUAL [id number] 22:39:00* Test Item Value Reference Range Interpretation Comments WHITE BLOOD CELL (test code = WBC) 6.1 K/mm3 4.5-12.5 N RED BLOOD CELL (test code = RBC) 2.94 mill/mm3 4.0-5.8 L HEMOGLOBIN (test code = HGB) 8.3 gram/dL 13.0-17.5 L HEMATOCRIT (test code = HCT) 26.4 % 42.0-52.0 L MEAN CELL VOLUME (test code = MCV) 89.8 fL 80-98 N MEAN CELL HGB (test code = MCH) 28.2 picogram 27.0-33.0 N MEAN CELL HGB CONCETRATION (test code = MCHC) 31.4 gram/dL 33.0-36. 0 L RED CELL DISTRIBUTION WIDTH (test code = RDW) 18.5 % 11.6-16. 2 H RED CELL DISTRIBUTION WIDTH SD (test code = RDW-SD) 61.0 fL 37 .0-51.0 H PLATELET COUNT (test code = PLT) 295 K/mm3 150-450 N MEAN PLATELET VOLUME (test code = MPV) 9.8 fL 6.7-11.0 N IMMATURE GRANULOCYTE % (test code = IG%) 0.5 % 0.0-5.0 N NUCLEATED RBC % (test code = NRBC%) 0.0 % 0-0 N NEUTROPHIL # (test code = NT#) 4.25 K/mm3 1.8-7.7 N IMMATURE GRANULOCYTE # (test code = IG#) 0.03 x10 3/uL 0-0.03 N LYMPHOCYTE # (test code = LY#) 0.33 K/mm3 1.0-5.0 L MONOCYTE # (test code = MO#) 1.41 K/mm3 0-0.8 H EOSINOPHIL # (test code = EO#) 0.01 K/mm3 0.0-0.5 N BASOPHIL # (test code = BA#) 0.05 K/mm3 0.0-0.2 N NUCLEATED RBC # (test code = NRBC#) 0.00 K/mm3 0.0-0.1 N MANUAL DIFF REQUIRED (test code = MDIFF) YES STAIN ACCEPTABILITY (test code = STN ACCEPTABLE) STAIN ACCEPTABLE TOTAL CELLS COUNTED (test code = TCC) 15 #CELLS SEGMENTED NEUTROPHILS (test code = SEG) 49.6 % 39-69 N BAND NEUTROPHIL (test code = BAND) 18.2 % 0-10 H LYMPHOCYTE (test code = LYMPH) 5.2 % 25-55 L REACTIVE LYMPH (test code = RELYMPH) 0 % MONOCYTE (test code = MON) 22.6 % 0-10 H EOSINOPHIL (test code = EOS) 0.9 % 0.0-5.0 N BASOPHIL (test code = BASO) 0 % 0-1.0 N METAMYELOCYTE (test code = META) 3.5 % 0-0 H MYELOCYTE (test code = MYELO) 0 % 0.0-0.0 N PROMYELOCYTE (test code = PROM) 0 % 0-0 N POIKILOCYTOSIS (test code = POIK) 1+ ANISOCYTOSIS (test code = ANISO) 1+ ELLIPTOCYTES (test code = ELL) 1+ PLATELET ESTIMATE (test code = PLTEST) ADEQUATE PLATELET MORPHOLOGY (test code = PLTMORPH) NORMAL IMMATURE FORMS (test code = IMMAT) 0 % 0-0 N LACTIC [id number] 22:32:00* Test Item Value Reference Range Interpretation Comments LACTIC ACID (test code = LACT) 2.5 mmol/L 0.4-1.9 HH Results called [place] [id number] by V.LAB. 12/05/19 2231Critical results verified and read back by Nurse? Y COMPREHENSIVE METABOLIC [id number] 21:53:00* Test Item Value Reference Range Interpretation Comments SODIUM (test code = NA) 140 mmol/L 136-145 N POTASSIUM (test code = K) 3.1 mmol/L 3.5-5.1 L CHLORIDE (test code = CL) mmol/L 98-107 CARBON DIOXIDE (test code = CO2) mmol/L 21-32 ANION GAP (test code = GAP) 10-20 GLUCOSE (test code = GLU) mg/dL 74-106 BLOOD UREA NITROGEN (test code = BUN) mg/dL 7-18 GLOMERULAR FILTRATION RATE (test code = GFR) mL/min >=60 CREATININE (test code = CREAT) mg/dL 0.7-1.3 BUN/CREATININE RATIO (test code = BUN/CREA) 10-20 TOTAL PROTEIN (test code = PROT) gram/dL 6.4-8.2 ALBUMIN (test code = ALB) g/dL 3.4-5.0 GLOBULIN (test code = GLOB) gram/dL 2.7-4.2 ALBUMIN/GLOBULIN RATIO (test code = A/G) 0.75-1.50 CALCIUM (test code = CA) mg/dL 8.5-10.1 BILIRUBIN TOTAL (test code = BILT) mg/dL 0.0-1.0 SGOT/AST (test code = AST) IUnit/L 15-37 SGPT/ALT (test code = ALT) IUnit/L 12-78 ALKALINE PHOSPHATASE TOTAL (test code = ALKP) IUnit/L 45-117 COMPREHENSIVE METABOLIC [id number] 21:53:00* Test Item Value Reference Range Interpretation Comments SODIUM (test code = NA) 140 mmol/L 136-145 N POTASSIUM (test code = K) 3.1 mmol/L 3.5-5.1 L CHLORIDE (test code = CL) 108.0 mmol/L 98-107 H CARBON DIOXIDE (test code = CO2) 20.0 mmol/L 21-32 L ANION GAP (test code = GAP) 15.1 10-20 N GLUCOSE (test code = GLU) 99 mg/dL 74-106 N BLOOD UREA NITROGEN (test code = BUN) 19 mg/dL 7-18 H GLOMERULAR FILTRATION RATE (test code = GFR) 52 mL/min >=60 Estimated GFR by using Modified MDRD formula.Chronic kidney disease is defined as either kidney damageor GFR <60 mL/min/1.73 m2 for >3 months. CREATININE (test code = CREAT) 1.40 mg/dL 0.7-1.3 H BUN/CREATININE RATIO (test code = BUN/CREA) 14.1 10-20 N TOTAL PROTEIN (test code = PROT) 5.9 gram/dL 6.4-8.2 L ALBUMIN (test code = ALB) 2.6 g/dL 3.4-5.0 L GLOBULIN (test code = GLOB) 3.3 gram/dL 2.7-4.2 N ALBUMIN/GLOBULIN RATIO (test code = A/G) 0.8 0.75-1.50 N CALCIUM (test code = CA) 8.2 mg/dL 8.5-10.1 L BILIRUBIN TOTAL (test code = BILT) 0.40 mg/dL 0.0-1.0 N SGOT/AST (test code = AST) 10 IUnit/L 15-37 L SGPT/ALT (test code = ALT) 7 IUnit/L 12-78 L ALKALINE PHOSPHATASE TOTAL (test code = ALKP) 61 IUnit/L 45-117 N Note change in reference range due to change in reagent. CBC W/MANUAL [id number] 21:51:00* Test Item Value Reference Range Interpretation Comments WHITE BLOOD CELL (test code = WBC) 6.1 K/mm3 4.5-12.5 N RED BLOOD CELL (test code = RBC) 2.94 mill/mm3 4.0-5.8 L HEMOGLOBIN (test code = HGB) 8.3 gram/dL 13.0-17.5 L HEMATOCRIT (test code = HCT) 26.4 % 42.0-52.0 L MEAN CELL VOLUME (test code = MCV) 89.8 fL 80-98 N MEAN CELL HGB (test code = MCH) 28.2 picogram 27.0-33.0 N MEAN CELL HGB CONCETRATION (test code = MCHC) 31.4 gram/dL 33.0-36. 0 L RED CELL DISTRIBUTION WIDTH (test code = RDW) 18.5 % 11.6-16. 2 H RED CELL DISTRIBUTION WIDTH SD (test code = RDW-SD) 61.0 fL 37 .0-51.0 H PLATELET COUNT (test code = PLT) 295 K/mm3 150-450 N MEAN PLATELET VOLUME (test code = MPV) 9.8 fL 6.7-11.0 N IMMATURE GRANULOCYTE % (test code = IG%) 0.5 % 0.0-5.0 N NUCLEATED RBC % (test code = NRBC%) 0.0 % 0-0 N NEUTROPHIL # (test code = NT#) 4.25 K/mm3 1.8-7.7 N IMMATURE GRANULOCYTE # (test code = IG#) 0.03 x10 3/uL 0-0.03 N LYMPHOCYTE # (test code = LY#) 0.33 K/mm3 1.0-5.0 L MONOCYTE # (test code = MO#) 1.41 K/mm3 0-0.8 H EOSINOPHIL # (test code = EO#) 0.01 K/mm3 0.0-0.5 N BASOPHIL # (test code = BA#) 0.05 K/mm3 0.0-0.2 N NUCLEATED RBC # (test code = NRBC#) 0.00 K/mm3 0.0-0.1 N MANUAL DIFF REQUIRED (test code = MDIFF) YES STAIN ACCEPTABILITY (test code = STN ACCEPTABLE) TOTAL CELLS COUNTED (test code = TCC) #CELLS SEGMENTED NEUTROPHILS (test code = SEG) % 39-69 LYMPHOCYTE (test code = LYMPH) % 25-55 MONOCYTE (test code = MON) % 0-10 EOSINOPHIL (test code = EOS) % 0.0-5.0 CABOT RINGS (test code = CAB) MORPHOLOGY COMMENT (test code = MOC) PLATELET ESTIMATE (test code = PLTEST) PLATELET MORPHOLOGY (test code = PLTMORPH) CBC W/MANUAL [id number] 21:51:00* Test Item Value Reference Range Interpretation Comments WHITE BLOOD CELL (test code = WBC) 6.1 K/mm3 4.5-12.5 N RED BLOOD CELL (test code = RBC) 2.94 mill/mm3 4.0-5.8 L HEMOGLOBIN (test code = HGB) 8.3 gram/dL 13.0-17.5 L HEMATOCRIT (test code = HCT) 26.4 % 42.0-52.0 L MEAN CELL VOLUME (test code = MCV) 89.8 fL 80-98 N MEAN CELL HGB (test code = MCH) 28.2 picogram 27.0-33.0 N MEAN CELL HGB CONCETRATION (test code = MCHC) 31.4 gram/dL 33.0-36. 0 L RED CELL DISTRIBUTION WIDTH (test code = RDW) 18.5 % 11.6-16. 2 H RED CELL DISTRIBUTION WIDTH SD (test code = RDW-SD) 61.0 fL 37 .0-51.0 H PLATELET COUNT (test code = PLT) 295 K/mm3 150-450 N MEAN PLATELET VOLUME (test code = MPV) 9.8 fL 6.7-11.0 N IMMATURE GRANULOCYTE % (test code = IG%) 0.5 % 0.0-5.0 N NUCLEATED RBC % (test code = NRBC%) 0.0 % 0-0 N NEUTROPHIL # (test code = NT#) 4.25 K/mm3 1.8-7.7 N IMMATURE GRANULOCYTE # (test code = IG#) 0.03 x10 3/uL 0-0.03 N LYMPHOCYTE # (test code = LY#) 0.33 K/mm3 1.0-5.0 L MONOCYTE # (test code = MO#) 1.41 K/mm3 0-0.8 H EOSINOPHIL # (test code = EO#) 0.01 K/mm3 0.0-0.5 N BASOPHIL # (test code = BA#) 0.05 K/mm3 0.0-0.2 N NUCLEATED RBC # (test code = NRBC#) 0.00 K/mm3 0.0-0.1 N MANUAL DIFF REQUIRED (test code = MDIFF) YES STAIN ACCEPTABILITY (test code = STN ACCEPTABLE) TOTAL CELLS COUNTED (test code = TCC) #CELLS SEGMENTED NEUTROPHILS (test code = SEG) % 39-69 LYMPHOCYTE (test code = LYMPH) % 25-55 MONOCYTE (test code = MON) % 0-10 EOSINOPHIL (test code = EOS) % 0.0-5.0 MORPHOLOGY COMMENT (test code = MOC) PLATELET ESTIMATE (test code = PLTEST) PLATELET MORPHOLOGY (test code = PLTMORPH) CBC W/MANUAL [id number] 21:51:00* Test Item Value Reference Range Interpretation Comments WHITE BLOOD CELL (test code = WBC) 6.1 K/mm3 4.5-12.5 N RED BLOOD CELL (test code = RBC) 2.94 mill/mm3 4.0-5.8 L HEMOGLOBIN (test code = HGB) 8.3 gram/dL 13.0-17.5 L HEMATOCRIT (test code = HCT) 26.4 % 42.0-52.0 L MEAN CELL VOLUME (test code = MCV) 89.8 fL 80-98 N MEAN CELL HGB (test code = MCH) 28.2 picogram 27.0-33.0 N MEAN CELL HGB CONCETRATION (test code = MCHC) 31.4 gram/dL 33.0-36. 0 L RED CELL DISTRIBUTION WIDTH (test code = RDW) 18.5 % 11.6-16. 2 H RED CELL DISTRIBUTION WIDTH SD (test code = RDW-SD) 61.0 fL 37 .0-51.0 H PLATELET COUNT (test code = PLT) 295 K/mm3 150-450 N MEAN PLATELET VOLUME (test code = MPV) 9.8 fL 6.7-11.0 N IMMATURE GRANULOCYTE % (test code = IG%) 0.5 % 0.0-5.0 N NUCLEATED RBC % (test code = NRBC%) 0.0 % 0-0 N NEUTROPHIL # (test code = NT#) 4.25 K/mm3 1.8-7.7 N IMMATURE GRANULOCYTE # (test code = IG#) 0.03 x10 3/uL 0-0.03 N LYMPHOCYTE # (test code = LY#) 0.33 K/mm3 1.0-5.0 L MONOCYTE # (test code = MO#) 1.41 K/mm3 0-0.8 H EOSINOPHIL # (test code = EO#) 0.01 K/mm3 0.0-0.5 N BASOPHIL # (test code = BA#) 0.05 K/mm3 0.0-0.2 N NUCLEATED RBC # (test code = NRBC#) 0.00 K/mm3 0.0-0.1 N MANUAL DIFF REQUIRED (test code = MDIFF) YES STAIN ACCEPTABILITY (test code = STN ACCEPTABLE) TOTAL CELLS COUNTED (test code = TCC) #CELLS SEGMENTED NEUTROPHILS (test code = SEG) % 39-69 LYMPHOCYTE (test code = LYMPH) % 25-55 MONOCYTE (test code = MON) % 0-10 MORPHOLOGY COMMENT (test code = MOC) PLATELET ESTIMATE (test code = PLTEST) PLATELET MORPHOLOGY (test code = PLTMORPH) CBC W/MANUAL [id number] 21:50:00* Test Item Value Reference Range Interpretation Comments WHITE BLOOD CELL (test code = WBC) 6.1 K/mm3 4.5-12.5 N RED BLOOD CELL (test code = RBC) 2.94 mill/mm3 4.0-5.8 L HEMOGLOBIN (test code = HGB) 8.3 gram/dL 13.0-17.5 L HEMATOCRIT (test code = HCT) 26.4 % 42.0-52.0 L MEAN CELL VOLUME (test code = MCV) 89.8 fL 80-98 N MEAN CELL HGB (test code = MCH) 28.2 picogram 27.0-33.0 N MEAN CELL HGB CONCETRATION (test code = MCHC) 31.4 gram/dL 33.0-36. 0 L RED CELL DISTRIBUTION WIDTH (test code = RDW) 18.5 % 11.6-16. 2 H RED CELL DISTRIBUTION WIDTH SD (test code = RDW-SD) 61.0 fL 37 .0-51.0 H PLATELET COUNT (test code = PLT) 295 K/mm3 150-450 N MEAN PLATELET VOLUME (test code = MPV) 9.8 fL 6.7-11.0 N IMMATURE GRANULOCYTE % (test code = IG%) 0.5 % 0.0-5.0 N NUCLEATED RBC % (test code = NRBC%) 0.0 % 0-0 N NEUTROPHIL # (test code = NT#) 4.25 K/mm3 1.8-7.7 N IMMATURE GRANULOCYTE # (test code = IG#) 0.03 x10 3/uL 0-0.03 N LYMPHOCYTE # (test code = LY#) 0.33 K/mm3 1.0-5.0 L MONOCYTE # (test code = MO#) 1.41 K/mm3 0-0.8 H EOSINOPHIL # (test code = EO#) 0.01 K/mm3 0.0-0.5 N BASOPHIL # (test code = BA#) 0.05 K/mm3 0.0-0.2 N NUCLEATED RBC # (test code = NRBC#) 0.00 K/mm3 0.0-0.1 N MANUAL DIFF REQUIRED (test code = MDIFF) YES STAIN ACCEPTABILITY (test code = STN ACCEPTABLE) TOTAL CELLS COUNTED (test code = TCC) #CELLS SEGMENTED NEUTROPHILS (test code = SEG) % 39-69 LYMPHOCYTE (test code = LYMPH) % 25-55 MONOCYTE (test code = MON) % 0-10 EOSINOPHIL (test code = EOS) % 0.0-5.0 CABOT RINGS (test code = CAB) MORPHOLOGY COMMENT (test code = MOC) PLATELET ESTIMATE (test code = PLTEST) PLATELET MORPHOLOGY (test code = PLTMORPH) CBC W/MANUAL [id number] 21:50:00* Test Item Value Reference Range Interpretation Comments WHITE BLOOD CELL (test code = WBC) 6.1 K/mm3 4.5-12.5 N RED BLOOD CELL (test code = RBC) 2.94 mill/mm3 4.0-5.8 L HEMOGLOBIN (test code = HGB) 8.3 gram/dL 13.0-17.5 L HEMATOCRIT (test code = HCT) 26.4 % 42.0-52.0 L MEAN CELL VOLUME (test code = MCV) 89.8 fL 80-98 N MEAN CELL HGB (test code = MCH) 28.2 picogram 27.0-33.0 N MEAN CELL HGB CONCETRATION (test code = MCHC) 31.4 gram/dL 33.0-36. 0 L RED CELL DISTRIBUTION WIDTH (test code = RDW) 18.5 % 11.6-16. 2 H RED CELL DISTRIBUTION WIDTH SD (test code = RDW-SD) 61.0 fL 37 .0-51.0 H PLATELET COUNT (test code = PLT) 295 K/mm3 150-450 N MEAN PLATELET VOLUME (test code = MPV) 9.8 fL 6.7-11.0 N IMMATURE GRANULOCYTE % (test code = IG%) 0.5 % 0.0-5.0 N NUCLEATED RBC % (test code = NRBC%) 0.0 % 0-0 N NEUTROPHIL # (test code = NT#) 4.25 K/mm3 1.8-7.7 N IMMATURE GRANULOCYTE # (test code = IG#) 0.03 x10 3/uL 0-0.03 N LYMPHOCYTE # (test code = LY#) 0.33 K/mm3 1.0-5.0 L MONOCYTE # (test code = MO#) 1.41 K/mm3 0-0.8 H EOSINOPHIL # (test code = EO#) 0.01 K/mm3 0.0-0.5 N BASOPHIL # (test code = BA#) 0.05 K/mm3 0.0-0.2 N NUCLEATED RBC # (test code = NRBC#) 0.00 K/mm3 0.0-0.1 N MANUAL DIFF REQUIRED (test code = MDIFF) YES STAIN ACCEPTABILITY (test code = STN ACCEPTABLE) TOTAL CELLS COUNTED (test code = TCC) #CELLS SEGMENTED NEUTROPHILS (test code = SEG) % 39-69 LYMPHOCYTE (test code = LYMPH) % 25-55 MONOCYTE (test code = MON) % 0-10 EOSINOPHIL (test code = EOS) % 0.0-5.0 CABOT RINGS (test code = CAB) MORPHOLOGY COMMENT (test code = MOC) PLATELET ESTIMATE (test code = PLTEST) PLATELET MORPHOLOGY (test code = PLTMORPH) LACTIC [id number] 20:52:00* Test Item Value Reference Range Interpretation Comments LACTIC ACID (test code = LACT) 3.4 mmol/L 0.4-1.9 HH Results called to [id number] by [email or web address] 12/05/19 205ritical results verified and read back by Nurse? Y [id number] 19:51:00* Test Item Value Reference Range Interpretation Comments GLUBED (test code = GLUBED) 121 mg/dL 74-106 H Performed by certified sleeve presser operator at [facility] LIPID PROFILE (CORONARY RISK)2019-12-05 18:26:00* Test Item Value Reference Range Interpretation Comments TRIGLYCERIDES (test code = TRIG) 85 mg/dL 20-150 N CHOLESTEROL (test code = CHOL) 176 mg/dL 0-200 N CHOLESTEROL/HDL RATIO (test code = CHOLHDL) 4.0 RATIO 0-4.9 N RISK ASSOCIATED WITH CHOL/HDL RATIOS: Risk Male Female1/2 AVERAGE 3.43 3.27AVERAGE 4.97 4.442X AVERAGE 9.55 7.053X AVERAGE 23.39 11.04 REFERENCE VALUE IS RELATED TO RISK LEVELS ASRECOMMENDED BY THE RIK. HEART, LUNG, AND BLOOD INST. HDL CHOLESTEROL (test code = HDL) 38 mg/dL 40-60 L LIPOPROTEIN LDL (test code = LDL) 129 mg/dL 100-129 N RN PERSONNEL, CONTACT PHYSICIAN IMMEDIATELY IF THIS IS A STROKE, AMI OR CAROTID STENOSIS PATIENT WHEN THE LDL >100 (1ST OCCURENCE, THIS ADMISSION) Reference Interval: mg/dL mmol/L Optimal <100 <2.6Near/above optimal 100-129 2.6- 3.3Borderline High 130-159 3.4-4.1High 160-189 4.1-4.9Very High >=190 >=4.9========= This LDL result is a direct measurement.========= SPECIMEN COMMENTS: add to [id number] 14:18:00* Test Item Value Reference Range Interpretation Comments TROPONIN-I (test code = TROPI) <0.015 ng/mL 0-0.045 N COMMENTS TO CHROMIUM PLATER: COLLECT 3 HOURS AFTER PREVIOUS SAMPLEPROTHROMBIN [id number] 13:11:00* Test Item Value Reference Range Interpretation Comments PROTHROMBIN TIME PATIENT (test code = PTP) 13.2 seconds 9.0-14.0 N INTERNATIONAL NORMAL RATIO (test code = INR) 1.2 0.8-1.2 N The therapeutic range for oral anticoagulant therapy formost indications is an international normalized ratio (INR)of between 2.0 and 3.0. The recommended therapeutic INRrange for various clinical situations is listed below: Clinical Situation INR range Pulmonary e mbolism treatment (2.0-3.0)Venous thrombosis treatmentVenous thrombosis prophylaxis (high risk surgery)Prevention of systemic embolism from: Acute myocardial infarction Valvular heart disease Atrial fibrillation Mechanical prosthetic heart valves (2.5-3.5) IS PATIENT ON ANTICOAGULANTS? NTHYROID STIMULATING [id number] 11:58:00* Test Item Value Reference Range Interpretation Comments THYROID STIMULATING HORMONE (test code = TSH) 4.330 uIU/mL 0.36-3.7 4 H TSH REFERENCE RANGES: EUTHYROID: 0.35 - 4.3 mIU/mL HYPO : > 5.5 mIU/mL HYPER : < 0.35 mIU/mL VALPROIC ACID (DEPAKENE)2019-12-05 11:58:00* Test Item Value Reference Range Interpretation Comments VALPROIC ACID (DEPAKENE) (test code = VALP) 26.0 mcg/mL 50.0-100.0 L B-TYPE NATRIURETIC [id number] 11:21:00* Test Item Value Reference Range Interpretation Comments B-TYPE NATRIURETIC PEPTIDE (test code = BNP) 135.79 pgram/mL 0-100 H [id number] 10:41:00* Test Item Value Reference Range Interpretation Comments TROPONIN-I (test code = TROPI) <0.015 ng/mL 0-0.045 N COMMENTS TO CHROMIUM PLATER: COLLECT 3 HOURS AFTER PREVIOUS SAMPLEURINALYSIS [id number] 04:02:00* Test Item Value Reference Range Interpretation Comments UA COLOR (test code = COLU) Light-Yellow YELLOW UA APPEARANCE (test code = APPU) HAZY CLEAR A UA GLUCOSE DIPSTICK (test code = DGLUU) NEGATIVE mg/dL NEGATIVE UA BILIRUBIN DIPSTICK (test code = BILU) NEGATIVE mg/dL NEGATIVE UA KETONE DIPSTICK (test code = KETU) NEGATIVE mg/dL NEGATIVE UA SPECIFIC GRAVITY (test code = SGU) 1.016 1.001-1.035 UA BLOOD DIPSTICK (test code = ARGENTINA) Negative mg/dL NEGATIVE UA PH DIPSTICK (test code = LEON) 5.5 5.0-8.0 UA PROTEIN DIPSTICK (test code = PROU) NEGATIVE mg/dL NEGATIVE UA UROBILINIOGEN DIPSTICK (test code = URO) Normal mg/dL NEGATIVE UA NITRITE DIPSTICK (test code = DOROTHY) POSITIVE NEGATIVE A UA LEUKOCYTE ESTERASE W REFLEX (test code = LEUUR) NEGATIVE Keeley/uL NEGATIVE UA WBC (test code = WBCU) 0-5 per HPF 0-5 UA RBC (test code = RBCU) 0-3 #/HPF 0-5 UA EPITHELIAL CELLS (test code = EPIU) FEW per HPF FEW UA BACTERIA (test code = BACU) MODERATE #/HPF NONE A UA MUCUS (test code = MUCU) FEW #/LPF FEW Urine Source? Clean CatchDRUGS OF ABUSE SCREEN [id number] 04:02:00* Test Item Value Reference Range Interpretation Comments URN COCAINE (test code = COCAURN) NEGATIVE <300 ng/mL URN CANNABINOIDS (test code = CANNABURN) NEGATIVE <50 ng/mL URN AMPHETAMINE (test code = AMPHETURN) NEGATIVE <1000 ng/mL URN BARBITURATE (test code = BARBITURN) NEGATIVE <200 ng/mL URN BENZODIAZEPINE (test code = BENZOURN) NEGATIVE <200 ng/mL URN OPIATES (test code = OPIATURN) NEGATIVE <300 ng/mL URN PHENCYCLIDINE (PCP) (test code = PHENCURN) NEGATIVE <25 ng/ mL URN METHADONE (test code = METHAURN) NEGATIVE <300 ng/mL Urine Source? Clean CatchURINALYSIS [id number] 03:46:00* Test Item Value Reference Range Interpretation Comments UA COLOR (test code = COLU) Light-Yellow YELLOW UA APPEARANCE (test code = APPU) HAZY CLEAR A UA GLUCOSE DIPSTICK (test code = DGLUU) NEGATIVE mg/dL NEGATIVE UA BILIRUBIN DIPSTICK (test code = BILU) NEGATIVE mg/dL NEGATIVE UA KETONE DIPSTICK (test code = KETU) NEGATIVE mg/dL NEGATIVE UA SPECIFIC GRAVITY (test code = SGU) 1.016 1.001-1.035 UA BLOOD DIPSTICK (test code = ARGENTINA) Negative mg/dL NEGATIVE UA PH DIPSTICK (test code = LEON) 5.5 5.0-8.0 UA PROTEIN DIPSTICK (test code = PROU) NEGATIVE mg/dL NEGATIVE UA UROBILINIOGEN DIPSTICK (test code = URO) Normal mg/dL NEGATIVE UA NITRITE DIPSTICK (test code = DOROTHY) POSITIVE NEGATIVE A UA LEUKOCYTE ESTERASE W REFLEX (test code = LEUUR) NEGATIVE Keeley/uL NEGATIVE UA WBC (test code = WBCU) 0-5 per HPF 0-5 UA RBC (test code = RBCU) 0-3 #/HPF 0-5 UA EPITHELIAL CELLS (test code = EPIU) FEW per HPF FEW UA BACTERIA (test code = BACU) MODERATE #/HPF NONE A UA MUCUS (test code = MUCU) FEW #/LPF FEW Urine Source? Clean CatchDRUGS OF ABUSE SCREEN [id number] 03:46:00* Test Item Value Reference Range Interpretation Comments URN COCAINE (test code = COCAURN) <300 ng/mL URN CANNABINOIDS (test code = CANNABURN) <50 ng/mL URN AMPHETAMINE (test code = AMPHETURN) <1000 ng/mL URN BARBITURATE (test code = BARBITURN) <200 ng/mL URN BENZODIAZEPINE (test code = BENZOURN) <200 ng/mL URN OPIATES (test code = OPIATURN) <300 ng/mL URN PHENCYCLIDINE (PCP) (test code = PHENCURN) <25 ng/ mL URN METHADONE (test code = METHAURN) <300 ng/mL Urine Source? Clean [id number] 03:09:00* Test Item Value Reference Range Interpretation Comments CKMB (test code = CKMBT) < 1.0 ng/mL 0-6.0 N [id number] 03:09:00* Test Item Value Reference Range Interpretation Comments TROPONIN-I (test code = TROPI) <0.015 ng/mL 0-0.045 N - XR CHEST 1 [id number] 03:05:00 FAX: Mahad Hayden MD [place]: St: [facility] FAX: Disha Garvin [phone] Name: [place] BR[place] [facility] : 1960 Age/S: 59/M [address] [facility] Unit [facility]: [id number] Loc: [place], [place] [address] Phys: Disha Tucker MD Acct: [id number] Dis Date: Status: REG ER PHONE #: [phone] Exam Date: 12/05/2019 0250 FAX #: [phone] Reason: tachycardia EXAMS: CPT CODE: [id number] XR CHEST 1 V 13742 Location: H3 CHEST X-RAY: AP frontal projection, one view, 12/05/19 CLINICAL HISTORY: Emergency room presentation, tachycardia COMPARISON EXAMS: Chest CT exam of 12/05/19 FINDINGS: Patient is status post sternotomy. Prominence of the mediast inum and aortic knob consistent with prominence of the thoracic aorta diss ection seen on chest CT exam. Pleural effusion better seen on the CT exam. Heart size borderline. Mild pulmonary venous cord. IMPRESSION: Mild fluid overload. Abi ctronically Signed by Rhonda Romero M.D. o n 12/05/2019 at 0305 Reported and signed by: Rhonda Romero M.D. CC: Mahad Hayden MD; Disha Aguilar MD Technologist: RT PASCALE Trnscrd Date/Time/By: 12/05/2019 (304) : By: [email or web address] Orig Print D/T: S: 12/05/2019 (0309) PAGE 1 Signed Report - CTA CHEST 2019-12-05 02:25:00 Name: [place] BRYAN [facility] : 1960 Age/S: 59 / M [address] [facility] Unit #: [id number] Loc: [place] [address] Phys: Disha Tucker MD Acct: [id number] Dis Date: Status: REG ER PHONE #: [phone] Exam Date: 12/05/2019 0150 FAX #: [phone] Reason: tachycardia EXAMS: CPT CODE: [id number] CTA CHEST 61729 AFTER HOURS SERVICE ON: 12/05/2019 2:[address] Scan of the Chest With Contrast Location Code M12 History: tachycardia Technique: Scans were performed on a helical scanner post IV contrast. Coronal and sagittal reconstructions were performed. 3-D post processing was not performed. One or more of the following dose reduction techniques were used: Automated exposure control, adjustment of the mA and/or kV according to patient size, and/or utilization of iterative reconstruction technique. 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 Eccentric plaque is noted in the ascending aorta. There is a dissection beginning at the aortic arch which extends into the left subclavian artery. Origin of the right brachiocephalic artery is from the true lumen. The origin of the left vertebral artery is from the true lumen. Origin of the left common carotid artery is from the false lumen. The dissection continues beyond the diaphragmatic hiatus. The true lumen supplies the celiac and superior mesenteric arteries. Origin of the left renal artery is from the false lumen. Origin of the right renal artery is not visualized. There is no significant change in appearance from 09/07/2019. There is no mediastinal hematoma. There are no filling defects in the pulmonary arteries. There is a moderate size right pleural effusion with compressive atelectasis. Small patchy infiltrate noted in the superior segment of the right lower lobe. There is no pulmonary edema. There is no pneumothorax. There is a small hiatal hernia. 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 Moderate size right pleural effusion with mark sive atelectasis. PAGE 1 Signed Report (CONTINUED) Name: [place] [facility] 1960 Age/S: 59 / M [address] [facility] Unit #: [id number] Loc: [place] [address] Phys: Disha Tucker MD Acct: [id number] Dis Date: Status: REG ER PHONE #: [phone] Exam Date: 12/05/2019 0150 FAX #: [phone] Reason: tachycardia EXAMS: CPT CODE: [id number] CTA CHEST 81333 < Continued> Small focal patchy infiltrates in the right lower lobe may be consistent with pneumonia. Small hiatal hernia. at 0225 Reported and signed by: Michelle Reese M.D. CC: Mahad Hayden MD; Disha Tucker MD Technologist:JESSICA ACOSTA RT CTDI: DLP: Trnscb Date/Time: 12/05/2019 (224) [email or web address].[email or web address] Orig Print D/T: S: 12/05/2019 (0228) PAGE 2 Signed Report BASIC METABOLIC [id number] 18:42:00* Test Item Value Reference Range Interpretation Comments SODIUM (test code = NA) 138 mmol/L 136-145 N POTASSIUM (test code = K) 3.7 mmol/L 3.5-5.1 N CHLORIDE (test code = CL) 103.0 mmol/L 98-107 N CARBON DIOXIDE (test code = CO2) 27.0 mmol/L 21-32 N ANION GAP (test code = GAP) 11.7 10-20 N GLUCOSE (test code = GLU) 88 mg/dL 74-106 N BLOOD UREA NITROGEN (test code = BUN) 16 mg/dL 7-18 N GLOMERULAR FILTRATION RATE (test code = GFR) > 60 mL/min >=60 Estimated GFR by using Modified MDRD formula.Chronic kidney disease is defined as either kidney damageor GFR <60 mL/min/1.73 m2 for >3 months. CREATININE (test code = CREAT) 1.00 mg/dL 0.7-1.3 N BUN/CREATININE RATIO (test code = BUN/CREA) 16.7 10-20 N CALCIUM (test code = CA) 9.3 mg/dL 8.5-10.1 N BASIC METABOLIC [id number] 18:35:00* Test Item Value Reference Range Interpretation Comments SODIUM (test code = NA) 138 mmol/L 136-145 N POTASSIUM (test code = K) 3.7 mmol/L 3.5-5.1 N CHLORIDE (test code = CL) 103.0 mmol/L 98-107 N CARBON DIOXIDE (test code = CO2) mmol/L 21-32 ANION GAP (test code = GAP) 10-20 GLUCOSE (test code = GLU) mg/dL 74-106 BLOOD UREA NITROGEN (test code = BUN) mg/dL 7-18 GLOMERULAR FILTRATION RATE (test code = GFR) mL/min >=60 CREATININE (test code = CREAT) mg/dL 0.7-1.3 BUN/CREATININE RATIO (test code = BUN/CREA) 10-20 CALCIUM (test code = CA) 9.3 mg/dL 8.5-10.1 N CBC W/AUTO [id number] 18:22:00* Test Item Value Reference Range Interpretation Comments WHITE BLOOD CELL (test code = WBC) 4.5 K/mm3 4.5-12.5 N RED BLOOD CELL (test code = RBC) 3.55 mill/mm3 4.0-5.8 L HEMOGLOBIN (test code = HGB) 10.0 gram/dL 13.0-17.5 L HEMATOCRIT (test code = HCT) 31.5 % 42.0-52.0 L MEAN CELL VOLUME (test code = MCV) 88.7 fL 80-98 N MEAN CELL HGB (test code = MCH) 28.2 picogram 27.0-33.0 N MEAN CELL HGB CONCETRATION (test code = MCHC) 31.7 gram/dL 33.0-36. 0 L RED CELL DISTRIBUTION WIDTH (test code = RDW) 18.1 % 11.6-16. 2 H RED CELL DISTRIBUTION WIDTH SD (test code = RDW-SD) 59.0 fL 37 .0-51.0 H PLATELET COUNT (test code = PLT) 284 K/mm3 150-450 N MEAN PLATELET VOLUME (test code = MPV) 8.9 fL 6.7-11.0 N NEUTROPHIL % (test code = NT%) 70.5 % 39.0-69.0 H IMMATURE GRANULOCYTE % (test code = IG%) 0.2 % 0.0-5.0 N LYMPHOCYTE % (test code = LY%) 10.1 % 25.0-55.0 L MONOCYTE % (test code = MO%) 17.2 % 0.0-10.0 H EOSINOPHIL % (test code = EO%) 1.1 % 0.0-5.0 N BASOPHIL % (test code = BA%) 0.9 % 0.0-1.0 N NUCLEATED RBC % (test code = NRBC%) 0.0 % 0-0 N NEUTROPHIL # (test code = NT#) 3.15 K/mm3 1.8-7.7 N IMMATURE GRANULOCYTE # (test code = IG#) 0.01 x10 3/uL 0-0.03 N LYMPHOCYTE # (test code = LY#) 0.45 K/mm3 1.0-5.0 L MONOCYTE # (test code = MO#) 0.77 K/mm3 0-0.8 N EOSINOPHIL # (test code = EO#) 0.05 K/mm3 0.0-0.5 N BASOPHIL # (test code = BA#) 0.04 K/mm3 0.0-0.2 N NUCLEATED RBC # (test code = NRBC#) 0.00 K/mm3 0.0-0.1 N MANUAL DIFF REQUIRED (test code = MDIFF) NO CBC W/AUTO [id number] 18:21:00* Test Item Value Reference Range Interpretation Comments WHITE BLOOD CELL (test code = WBC) K/mm3 4.5-12.5 RED BLOOD CELL (test code = RBC) mill/mm3 4.0-5.8 HEMOGLOBIN (test code = HGB) gram/dL 13.0-17.5 HEMATOCRIT (test code = HCT) % 42.0-52.0 MEAN CELL VOLUME (test code = MCV) fL 80-98 MEAN CELL HGB (test code = MCH) picogram 27.0-33.0 MEAN CELL HGB CONCETRATION (test code = MCHC) gram/dL 33.0-36. 0 RED CELL DISTRIBUTION WIDTH (test code = RDW) % 11.6-16. 2 RED CELL DISTRIBUTION WIDTH SD (test code = RDW-SD) fL 37 .0-51.0 PLATELET COUNT (test code = PLT) 284 K/mm3 150-450 N MEAN PLATELET VOLUME (test code = MPV) fL 6.7-11.0 NEUTROPHIL % (test code = NT%) % 39.0-69.0 IMMATURE GRANULOCYTE % (test code = IG%) % 0.0-5.0 LYMPHOCYTE % (test code = LY%) % 25.0-55.0 MONOCYTE % (test code = MO%) % 0.0-10.0 EOSINOPHIL % (test code = EO%) % 0.0-5.0 BASOPHIL % (test code = BA%) % 0.0-1.0 NEUTROPHIL # (test code = NT#) K/mm3 1.8-7.7 LYMPHOCYTE # (test code = LY#) K/mm3 1.0-5.0 MONOCYTE # (test code = MO#) K/mm3 0-0.8 EOSINOPHIL # (test code = EO#) K/mm3 0.0-0.5 BASOPHIL # (test code = BA#) K/mm3 0.0-0.2 COVID 19 INHOUSE [id number] 17:40:00* Test Item Value Reference Range Interpretation Comments COVID 19 INHOUSE AG (test code = [id number]) NEGATIVE - CT HEAD/BRAIN W/O [id number] 17:38:00 Name: [place] BRYAN [facility] : 1960 Age/S: 58 / M [address] [facility] Unit #: [id number] Loc: [place] [address] Phys: Mahad Hayden MD Acct: [id number] Dis Date: Status: REG ER PHONE #: [phone] Exam Date: 12/03/2019 1625 FAX #: [phone] Reason: combative EXAMS: CPT CODE: [id number] CT HEAD/BRAIN W/O CONT 13338 EXAM: CT of the head without contrast; INFORMATION: Combative, aggressive behavior in medical resort; TECHNIQUE AND FINDINGS: CT dose reduction protocol; 2.5 minute axial scans. No evidence of intra or extra-axial hemorrhage, no midline shift. There is a 16 mm hypodensity in the rostral portion of the left parietal lobe. There are also mild hypodensities involving the periventricular and deep white matter. Otherwise, unremarkable garcia/white matter differentiation. Ventricles are symmetric and of normal diameter; slightly prominent sulci. Basilar cisterns are intact. Calcifications of the internal carotid arteries. The calvarium is intact. IMPRESSION: 1. Small hypodensity in the left parietal lobe probably representing a chronic or possibly subacute infarct. A m ass lesion is less likely, in the absence of edema. 2. Mild cafe server coretta ischemic white matter changes. Location code: [facility] at 1738 Reported and si gned by: Christopher Hawley M.D. CC: Mahad Hayden MD Technologist:Diana Song RT(R),CT CTDI: DLP: Trnscb Date/Time: 12/03/2019 (1738) [email or web address] Orig Print D/T: S: 12/03/2019 (2290) PAGE 1 Signed Report BASIC METABOLIC [id number] 17:34:00* Test Item Value Reference Range Interpretation Comments SODIUM (test code = NA) 141 mmol/L 136-145 N POTASSIUM (test code = K) 4.0 mmol/L 3.5-5.1 N CHLORIDE (test code = CL) 106.0 mmol/L 98-107 N CARBON DIOXIDE (test code = CO2) 26.0 mmol/L 21-32 N ANION GAP (test code = GAP) 13.0 10-20 N GLUCOSE (test code = GLU) 89 mg/dL 74-106 N BLOOD UREA NITROGEN (test code = BUN) 15 mg/dL 7-18 N GLOMERULAR FILTRATION RATE (test code = GFR) > 60 mL/min >=60 Estimated GFR by using Modified MDRD formula.Chronic kidney disease is defined as either kidney damageor GFR <60 mL/min/1.73 m2 for >3 months. CREATININE (test code = CREAT) 1.00 mg/dL 0.7-1.3 N BUN/CREATININE RATIO (test code = BUN/CREA) 14.6 10-20 N CALCIUM (test code = CA) 8.8 mg/dL 8.5-10.1 N HEPATIC FUNCTION [id number] 17:34:00* Test Item Value Reference Range Interpretation Comments TOTAL PROTEIN (test code = PROT) 6.5 gram/dL 6.4-8.2 N ALBUMIN (test code = ALB) 3.0 g/dL 3.4-5.0 L GLOBULIN (test code = GLOB) 3.5 gram/dL 2.7-4.2 N ALBUMIN/GLOBULIN RATIO (test code = A/G) 0.9 0.75-1.50 N BILIRUBIN TOTAL (test code = BILT) 0.30 mg/dL 0.0-1.0 N BILIRUBIN DIRECT (test code = BILD) 0.09 mg/dL 0.0-0.20 N SGOT/AST (test code = AST) 8 IUnit/L 15-37 L SGPT/ALT (test code = ALT) 7 IUnit/L 12-78 L ALKALINE PHOSPHATASE TOTAL (test code = ALKP) 67 IUnit/L 45-117 N Note change in reference range due to change in reagent. THYROID STIMULATING [id number] 17:34:00* Test Item Value Reference Range Interpretation Comments THYROID STIMULATING HORMONE (test code = TSH) 4.450 uIU/mL 0.36-3.7 4 H TSH REFERENCE RANGES: EUTHYROID: 0.35 - 4.3 mIU/mL HYPO : > 5.5 mIU/mL HYPER : < 0.35 mIU/mL [id number] 17:34:00* Test Item Value Reference Range Interpretation Comments ALCOHOL (test code = ALC) < 3 mg/dL 0.0-3.0 N -- INTERPRETIVE DATA NOTE: POSITIVE SCREENING RESULTS SHOULD BE CONSIDERED PRESUMPTIVE.WHEN COLLECTED FOR MEDICAL PURPOSES ONLY. SPECIMEN WILL NOTBE COLLECTED BY CHAIN OF CUSTODY.IF A CONFIRMATION OF POSITIVE RESULTS IS DESIRED, ACONFIRMATION TEST MUST BE REQUESTED BY THE PHYSICIAN AT ANADDITIONAL CHARGE TO THE PATIENT. BASIC METABOLIC [id number] 17:09:00* Test Item Value Reference Range Interpretation Comments SODIUM (test code = NA) 141 mmol/L 136-145 N POTASSIUM (test code = K) 4.0 mmol/L 3.5-5.1 N CHLORIDE (test code = CL) 106.0 mmol/L 98-107 N CARBON DIOXIDE (test code = CO2) mmol/L 21-32 ANION GAP (test code = GAP) 10-20 GLUCOSE (test code = GLU) mg/dL 74-106 BLOOD UREA NITROGEN (test code = BUN) mg/dL 7-18 GLOMERULAR FILTRATION RATE (test code = GFR) mL/min >=60 CREATININE (test code = CREAT) mg/dL 0.7-1.3 BUN/CREATININE RATIO (test code = BUN/CREA) 10-20 CALCIUM (test code = CA) mg/dL 8.5-10.1 HEPATIC FUNCTION [id number] 17:09:00* Test Item Value Reference Range Interpretation Comments TOTAL PROTEIN (test code = PROT) gram/dL 6.4-8.2 ALBUMIN (test code = ALB) g/dL 3.4-5.0 GLOBULIN (test code = GLOB) gram/dL 2.7-4.2 ALBUMIN/GLOBULIN RATIO (test code = A/G) 0.75-1.50 BILIRUBIN TOTAL (test code = BILT) mg/dL 0.0-1.0 BILIRUBIN DIRECT (test code = BILD) mg/dL 0.0-0.20 SGOT/AST (test code = AST) IUnit/L 15-37 SGPT/ALT (test code = ALT) IUnit/L 12-78 ALKALINE PHOSPHATASE TOTAL (test code = ALKP) IUnit/L 45-117 THYROID STIMULATING [id number] 17:09:00* Test Item Value Reference Range Interpretation Comments THYROID STIMULATING HORMONE (test code = TSH) uIU/mL 0.36-3.7 4 [id number] 17:09:00* Test Item Value Reference Range Interpretation Comments ALCOHOL (test code = ALC) mg/dL 0-3 CBC W/O [id number] 16:58:00* Test Item Value Reference Range Interpretation Comments WHITE BLOOD CELL (test code = WBC) 5.7 K/mm3 4.5-12.5 N RED BLOOD CELL (test code = RBC) 3.03 mill/mm3 4.0-5.8 L HEMOGLOBIN (test code = HGB) 8.5 gram/dL 13.0-17.5 L HEMATOCRIT (test code = HCT) 27.3 % 42.0-52.0 L MEAN CELL VOLUME (test code = MCV) 90.1 fL 80-98 N MEAN CELL HGB (test code = MCH) 28.1 picogram 27.0-33.0 N MEAN CELL HGB CONCETRATION (test code = MCHC) 31.1 gram/dL 33.0-36. 0 L RED CELL DISTRIBUTION WIDTH (test code = RDW) 18.3 % 11.6-16. 2 H PLATELET COUNT (test code = PLT) 263 K/mm3 150-450 N MEAN PLATELET VOLUME (test code = MPV) 9.0 fL 6.7-11.0 N CBC W/O [id number] 16:56:00* Test Item Value Reference Range Interpretation Comments WHITE BLOOD CELL (test code = WBC) K/mm3 4.5-12.5 RED BLOOD CELL (test code = RBC) mill/mm3 4.0-5.8 HEMOGLOBIN (test code = HGB) gram/dL 13.0-17.5 HEMATOCRIT (test code = HCT) % 42.0-52.0 MEAN CELL VOLUME (test code = MCV) fL 80-98 MEAN CELL HGB (test code = MCH) picogram 27.0-33.0 MEAN CELL HGB CONCETRATION (test code = MCHC) gram/dL 33.0-36. 0 RED CELL DISTRIBUTION WIDTH (test code = RDW) % 11.6-16. 2 PLATELET COUNT (test code = PLT) 263 K/mm3 150-450 N MEAN PLATELET VOLUME (test code = MPV) fL 6.7-11.0 Blood leukocytes automated count (number/volume)2019-11-22 09:09:00* Test Item Value Reference Range Interpretation Comments White Blood Count (test code = 6690-2) 7.37 4.8-10.8 VERIFIED [facility]VI[facility]ULT[facility] erythrocytes automated count (number/volume)2019-11-22 09:09:00* Test Item Value Reference Range Interpretation Comments Red Blood Count (test code = 789-8) 3.12 4.3-5.7 [facility] hemoglobin measurement (moles/volume)2019-11-22 09:09:00* Test Item Value Reference Range Interpretation Comments Hemoglobin (test code = 62999-1) 8.3 14.0-18.0 [facility] blood hematocrit (volume fraction)2019-11-22 09:09:00* Test Item Value Reference Range Interpretation Comments Hematocrit (test code = 4544-3) 26.3 38.2-49.6 [facility] erythrocyte mean corpuscular [id number] 09:09:00* Test Item Value Reference Range Interpretation Comments Mean Corpuscular Volume (test code = 787-2) 84.3 81-99 [facility] eryth[facility] mean corpuscular hemoglobin (mass per erythrocyte)2019-11-22 09:09:00* Test Item Value Reference Range Interpretation Comments Mean Corpuscular Hemoglobin (test code = 785-6) 26.6 28-32 [facility] erythrocyte mean corpuscular hemoglobin concentration measurement (mass/volume)2019-11-22 09:09:00* Test Item Value Reference Range Interpretation Comments Mean Corpuscular Hemoglobin Concent (test code = 786-4) 31.6 31-35 [facility] NorthwestRDW [id number] 09:09:00* Test Item Value Reference Range Interpretation Comments Red Cell Distribution Width (test code = 70646-6) 16.7 11.7 -14.4 [facility] blood platelet count (count/volume)2019-11-22 09:09:00* Test Item Value Reference Range Interpretation Comments Platelet Count (test code = 777-3) 106 140-360 [facility]Autom[facility] blood segmented neutrophil count as percentage of total xhtisextlq1089-82-74 09:09:00* Test Item Value Reference Range Interpretation Comments Neutrophils (%) (Auto) (test code = 91250-6) 66.4 38.7-80.0 [facility] NorthwestAutom[facility] blood lymphocyte count as percentage ot total upcntgllbv9499-66-49 09:09:00* Test Item Value Reference Range Interpretation Comments Lymphocytes (%) (Auto) (test code = 736-9) 18.0 18.0-39.1 [facility] NorthwestAutom[facility] blood monocyte count as percentage of total yvinrmktdd2600-49-18 09:09:00* Test Item Value Reference Range Interpretation Comments Monocytes (%) (Auto) (test code = 5905-5) 11.9 4.4-11.3 [facility] NorthwestAutom[facility] blood eosinophil count as percentage of total olvdxulzpj8045-99-84 09:09:00* Test Item Value Reference Range Interpretation Comments Eosinophils (%) (Auto) (test code = 713-8) 0.7 0.0-6.0 [facility] NorthwestAutom[facility] blood basophil count as percentage of total oidytqygpc7546-95-02 09:09:00* Test Item Value Reference Range Interpretation Comments Basophils (%) (Auto) (test code = 706-2) 1.2 0.0-1.0 [facility] NorthwestFluoroscopic procedure less than one hour fwjeehau5717-63-41 09:09:00* Test Item Value Reference Range Interpretation Comments IM GRANULOCYTES % (test code = IM GRANULOCYTES %) 1.8 0.0- 1.0 [facility] NorthwestAutom[facility] blood neutrophil count 2019-11-22 09:09:00* Test Item Value Reference Range Interpretation Comments Neutrophils # (Auto) (test code = 751-8) 4.9 2.1-6.9 [facility] NorthwestBlood lymphocytes count (number/volume) 2019-11-22 09:09:00* Test Item Value Reference Range Interpretation Comments Lymphocytes # (Auto) (test code = 64880-6) 1.3 1.0-3.2 [facility] NorthwestBlood monocytes automated count (number/volume)2019-11-22 09:09:00* Test Item Value Reference Range Interpretation Comments Monocytes # (Auto) (test code = 742-7) 0.9 0.2-0.8 [facility] NorthwestAutomated blood eosinophil count 2019-11-22 09:09:00* Test Item Value Reference Range Interpretation Comments Eosinophils # (Auto) (test code = 711-2) 0.1 0.0-0.4 [facility] NorthwestAutomated blood basophil count (count/volume)2019-11-22 09:09:00* Test Item Value Reference Range Interpretation Comments Basophils # (Auto) (test code = 704-7) 0.1 0.0-0.1 [facility] NorthwestFluoroscopic procedure less than one hour hcelilfo0749-71-53 09:09:00* Test Item Value Reference Range Interpretation Comments Absolute Immature Granulocyte (auto (carroll t code = Absolute Immature Granulocyte (auto) 0.13 0-0.1 [facility] or plasma sodium measurement (moles/volume)2019-11-22 09:09:00* Test Item Value Reference Range Interpretation Comments Sodium Level (test code = 2951-2) 140 136-145 [facility] or plasma potassium measurement (moles/volume)2019-11-22 09:09:00* Test Item Value Reference Range Interpretation Comments Potassium Level (test code = 2823-3) 3.8 3.5-5.1 [facility] or plasma chloride measurement (moles/volume)2019-11-22 09:09:00* Test Item Value Reference Range Interpretation Comments Chloride Level (test code = 2075-0) 106 98-107 [facility] or plasma carbon dioxide, total measurement (moles/volume)2019-11-22 09:09:00* Test Item Value Reference Range Interpretation Comments Carbon Dioxide Level (test code = 2028-9) 23 22-29 [facility] or plasma anion efa4463-85-31 09:09:00* Test Item Value Reference Range Interpretation Comments Anion Gap (test code = 04366-3) 14.8 8-16 [facility] or plasma urea nitrogen measurement (mass/volume)2019-11-22 09:09:00* Test Item Value Reference Range Interpretation Comments Blood Urea Nitrogen (test code = 3094-0) 7 7-26 [facility] or plasma creatinine measurement (mass/volume)2019-11-22 09:09:00* Test Item Value Reference Range Interpretation Comments Creatinine (test code = 2160-0) 0.74 0.72-1.25 [facility] or plasma urea nitrogen/creatinine mass runpo7550-48-75 09:09:00* Test Item Value Reference Range Interpretation Comments BUN/Creatinine Ratio (test code = 3097-3) 9 6-25 [facility] NorthwestEstimated glomerular filtration rate (GFR) xeosranptjzzx9356-09-26 09:09:00* Test Item Value Reference Range Interpretation Comments Estimat Glomerular Filtration Rate (test code = 197806886) > 60 >60 Ranges were taken from the National Kidney Disease Education Program and the [facility] literature.Reference ranges:60 or greater: Qplrpn50-35 ( for 3 consecutive months): Chronic kidney disease 15 or less: Kidney failureHCA Houston Healthcare NorthwestGlucose hqksirgljgn5218-68-37 09:09:00* Test Item Value Reference Range Interpretation Comments Glucose Level (test code = EJD1010) 79 74-118 [facility] or plasma calcium measurement (mass/volume)2019-11-22 09:09:00* Test Item Value Reference Range Interpretation Comments Calcium Level (test code = 88657-4) 8.7 8.4-10.2 [facility]2019-11-21 08:55:00 [place] [address] Patient Name: INDIANA BRYAN MR #: [id number] : 1960 Age/Sex: 58/M Req #: [id number] Adm Physician: SAMMY LOPEZ MD Ordered by: CAROLE DEUTSCH NATUROPATHIC ONCOLOGY PROVIDER Report #: [id number] Location: MED/SURG2 Room/Bed: [facility] Procedure: [id number] DX/CHEST SINGLE (PORTABLE) Exam Date: 11/21/19 Exam Time: 0605 REPORT STATUS: Signed EXAMINATION: CHEST SINGLE (PORTABLE) INDICATION: Pneumonia COMPARISON: Chest ra diograph of 11/19/2019 FINDINGS: LINES/TUBES:Left PICC line termin ates in the upper SVC. LUNGS:The lungs are moderately inflated. Unchanged p atchy and linear opacities at the right upper lung. PLEURA:No pleural eff usion or pneumothorax. MEDIASTINUM:The cardiomediastinal silhouette appears unchanged in size and shape. BONES/SOFT TISSUES:No acute osseous injury. Sternotomy wires in place. ABDOMEN:No free air under the diaphragm. Residu al oral contrast material in the upper abdomen. IMPRESSION: No sign ificant interval change. Signed by: Tri Ring MD on 11/21/2019 8:57 AM Dictated By: TRI RING MD 6 COPY TO: CAMI DEUTSCH NATUROPATHIC ONCOLOGY PROVIDER Fluoroscopic procedure less than one hour jgwfzwsr7947-06-45 04:55:00* Test Item Value Reference Range Interpretation Comments Differential Total Cells Counted (test code = Earlene redl Total Cells Counted) 100 [facility] blood neutrophils/100 leukocytes 2019-11-21 04:55:00* Test Item Value Reference Range Interpretation Comments Neutrophils % (Manual) (test code = 74911-9) 64 40-74 [facility] blood lymphocytes/100 leukocytes 2019-11-21 04:55:00* Test Item Value Reference Range Interpretation Comments Lymphocytes % (Manual) (test code = 737-7) 20 19-48 [facility] blood monocytes/100 leukocytes 2019-11-21 04:55:00* Test Item Value Reference Range Interpretation Comments Monocytes % (Manual) (test code = 744-3) 10 3.4-9.0 [facility] blood eosinophil count as percentage of total zzfnwzfniv9644-64-16 04:55:00* Test Item Value Reference Range Interpretation Comments Eosinophils % (Manual) (test code = 714-6) 2 0-7 [facility] blood myelocytes/100 leukocytes 2019-11-21 04:55:00* Test Item Value Reference Range Interpretation Comments Myelocytes % (test code = 749-2) 4 0-0 [facility] platelets count by estimate (number/volume)2019-11-21 04:55:00* Test Item Value Reference Range Interpretation Comments Platelet Estimate (test code = 44332-3) MODERATELY DECREASED [facility] NorthwestPlatelet moejqniqic9904-81-07 04:55:00* Test Item Value Reference Range Interpretation Comments Platelet Morphology Comment (test code = 50738-7) NORMAL [facility] anisocytosis detection by light oqyxijcuvp5049-85-54 04:55:00* Test Item Value Reference Range Interpretation Comments Anisocytosis (test code = 702-1) SLIGHT [facility] ovalocytes detection by light betivqgbja6949-63-11 04:55:00* Test Item Value Reference Range Interpretation Comments Ovalocytes (test code = 774-0) FEW [facility] kev cells detection by light dczwyqbhrt3569-55-40 04:55:00* Test Item Value Reference Range Interpretation Comments [place] Cells (test code = 7790-9) SLIGHT [facility] NorthwestElliptocyte bmkuwpvzc0351-99-77 04:55:00 * Test Item Value Reference Range Interpretation Comments Elliptocytes (test code = 98442-4) SLIGHT [facility] NorthwestBlood acanthocytes detection by light kuoptarnxy1436-97-49 04:55:00* Test Item Value Reference Range Interpretation Comments Acanthocytes (test code = 7789-1) FEW [facility] NorthwestBlood schistocytes detection by light qkohkzqjha1496-43-85 04:55:00* Test Item Value Reference Range Interpretation Comments Schistocytes (test code = 800-3) RARE [facility] NorthwestRBC omroqiddkd2883-76-47 04:55:00* Test Item Value Reference Range Interpretation Comments Red Cell Morphology Comment (test code = 6742-1) ABNORMAL [facility] or plasma total bilirubin measurement (mass/volume)2019-11-21 04:55:00* Test Item Value Reference Range Interpretation Comments Total Bilirubin (test code = 1975-2) 0.4 0.2-1.2 [facility] NorthwestFluoroscopic procedure less than one hour jumtbeuu1702-57-11 04:55:00* Test Item Value Reference Range Interpretation Comments Aspartate Amino Transf (AST/SGOT) (test code = Aspartate Amino Transf (AST/SGOT)) 12 5-34 [facility] or plasma alanine aminotransferase measurement (enzymatic activity/volume)2019-11-21 04:55:00* Test Item Value Reference Range Interpretation Comments Alanine Aminotransferase (ALT/SGPT) (test code = 1742-6) < 6 0-55 [facility]ererum or plasma protein measurement (mass/volume)2019-11-21 04:55:00* Test Item Value Reference Range Interpretation Comments Total Protein (test code = 2885-2) 5.0 6.5-8.1 [facility] or plasma albumin measurement (mass/volume)2019-11-21 04:55:00* Test Item Value Reference Range Interpretation Comments Albumin (test code = 1751-7) 3.3 3.5-5.0 [facility] NorthwestPlasma globulin measurement (mass/volume) 2019-11-21 04:55:00* Test Item Value Reference Range Interpretation Comments Globulin (test code = 77756-6) 1.7 2.3-3.5 [facility] or plasma albumin/globulin mass kwbwt7253-41-07 04:55:00* Test Item Value Reference Range Interpretation Comments Albumin/Globulin Ratio (test code = 1759-0) 1.9 0.8-2.0 [facility] or plasma alkaline phosphatase measurement (enzymatic activity/volume)2019-11-21 04:55:00* Test Item Value Reference Range Interpretation Comments Alkaline Phosphatase (test code = 6768-6) 38 40-150 [facility] NorthwestMODIFIED BA. LYVAPWK0237-26-76 13:42:00 [place] [address] Patient Name: INDIANA BRYAN MR #: [id number] : 1960 Age/Sex: 58/M Req #: [id number] Adm Physician: SAMMY LOPEZ MD Ordered by: SAMMY LOPEZ MD Repor t #: [id number] Location: MED/[facility] Room/Bed : [facility] Procedure: [id number] DX/MODIFIED BA. SWALLOW Exam Date: 11/20/19 Exam Time: 917 REPORT STATUS: Signed PROCEDURE: X-RAY M ODIFIED BARIUM SWALLOW COMPARISON: None. INDICATION: Aspiration Radiation Details: Fluoroscopy time: 1.7 minutes Cumulative dose: 10.1 mGy DISCUSSION: Fluoroscopic examination was performed in conjunction with speec h pathology during swallowing a variety of thin and thick liquid consistencies . Provided images demonstrate silent laryngeal aspiration with thin liquids. Significant pharyngeal residue is noted. CONCLUSION: Modified barium sw allow demonstrating aspiration with thin liquids. Please refer to the speech p athology report for further details. Signed by: Juancarlos Quinn MD on 0 1:43 PM Dictated By: JUANCARLOS QUINN MD 1343 Transcribed By: EARL on 11/20/19 1343 COPY TO: SAMMY LOPEZ MD Serum or plasma iron measurement (mass/volume) 2019-11-20 05:00:00* Test Item Value Reference Range Interpretation Comments Iron Level (test code = 2498-4) 44 65-175 [facility] or plasma iron binding capacity measurement (mass/volume)2019-11-20 05:00:00* Test Item Value Reference Range Interpretation Comments Total Iron Binding Capacity (test code = 2500-7) 104 261-4 78 [facility]ererum or plasma iron saturation measurement (mass fraction)2019-11-20 05:00:00* Test Item Value Reference Range Interpretation Comments Percent Iron Saturation (test code = 2502-3) 42 15-50 [facility] or plasma transferrin measurement (mass/volume)2019-11-20 05:00:00* Test Item Value Reference Range Interpretation Comments Transferrin (test code = 3034-6) 74 174-364 [facility] NorthwestCapillary blood glucose measurement by glucometer (mass/volume)2019-11-19 19:18:00* Test Item Value Reference Range Interpretation Comments Bedside Glucose (test code = 33320-5) 93 70-120 Meter ID: [id number] [facility] Healthcare NorthwestCHEST SINGLE (PORTABLE)2019-11-19 17:58:00 [place] [address] Patient Name: INDIANA BRYAN MR #: [id number] : 1960 Age/Sex: 58/M Req #: [id number] Adm Physician: SAMMY LOPEZ MD Ordered by: CAROLE DEUTSCH NATUROPATHIC ONCOLOGY PROVIDER Report #: [id number] Location: MED/SURG2 Room/Bed: 201-1 Procedure: [id number] DX/CHEST SINGLE (PORTABLE) Exam Date: 11/19/19 Exam Time: 1730 REPORT STATUS: Signed EXAMINATION: CHEST SINGLE (PORTABLE) INDICATION: Cough. Aspiration. COMPARISON: Chest x-ray 11/16/2019 FINDINGS: TUBES and LINES: Left uppe r extremity PICC with distal tip projected on the proximal SVC. LUNGS: In terval development of patchy density in the right upper lobe, suggestive of co nsolidation. PLEURA: No pleural effusion or pneumothorax. HEART AND M EDIASTINUM: Cardiac size is mildly enlarged. BONES AND SOFT TISSUES: No acute osseous lesion. Median sternotomy wires UPPER ABDOMEN: No free air u nder the diaphragm. IMPRESSION: Interval development of right upper lobe pneumonia. Recommend follow-up after treatment to document resolution. Signed by: Dr. Tabitha Tran M.D. on 11/19/2019 6:01 PM Dictate d By: CAROLA TRAN MD, MD 00 COPY TO: CAROLE DEUTSCH NP Urine color cxrjhzequiylv6663-02-99 13:18:00* Test Item Value Reference Range Interpretation Comments Urine Color (test code = 5778-6) YELLOW YELLOW [facility] NorthwestUrine quzgpam6275-77-01 13:18:00* Test Item Value Reference Range Interpretation Comments Urine Clarity (test code = 42054-2) SL CLOUDY CLEAR [facility] Centerpecific gravity of Urine by Test strip 2019-11-19 13:18:00* Test Item Value Reference Range Interpretation Comments Urine Specific [place] (test code = 5811-5) 1.025 1.010-1.02 5 [facility] NorthwestUrine pH measurement by automated test nsavn6382-14-99 13:18:00* Test Item Value Reference Range Interpretation Comments Urine pH (test code = 05025-2) 7 5-7 [facility] NorthwestUrine leukocyte esterase detection by swvoszmq8371-03-55 13:18:00* Test Item Value Reference Range Interpretation Comments Urine Leukocyte Esterase (test code = 5799-2) NEGATIVE NEGATIVE [facility] NorthwestUrine nitrite bwkubvwae4840-82-66 13:18:00* Test Item Value Reference Range Interpretation Comments Urine Nitrite (test code = 44754-0) POSITIVE NEGATIVE [facility] NorthwestUrine protein measurement by test strip (mass/volume)2019-11-19 13:18:00* Test Item Value Reference Range Interpretation Comments Urine Protein (test code = 5804-0) NEGATIVE NEGATIVE [facility] NorthwestUrine glucose hpqxorcwi5737-48-35 13:18:00* Test Item Value Reference Range Interpretation Comments Urine Glucose (UA) (test code = 2349-9) NEGATIVE NEGATIVE [facility] NorthwestUrine ketones detection by automated test xxcjo7819-03-42 13:18:00* Test Item Value Reference Range Interpretation Comments Urine Ketones (test code = 10821-8) NEGATIVE NEGATIVE [facility] NorthwestUrine urobilinogen measurement by test strip (mass/volume)2019-11-19 13:18:00* Test Item Value Reference Range Interpretation Comments Urine Urobilinogen (test code = 63047-9) 0.2 0.2-1 [facility] NorthwestUrine total bilirubin measurement (mass/volume)2019-11-19 13:18:00* Test Item Value Reference Range Interpretation Comments Urine Bilirubin (test code = 1978-6) NEGATIVE NEGATIVE [facility] NorthwestUrine erythrocytes qrblzwvcu0902-20-11 13:18:00* Test Item Value Reference Range Interpretation Comments Urine Blood (test code = 84484-0) NEGATIVE NEGATIVE [facility] NorthwestAutomated urine sediment leukocyte count by microscopy (number/high power field)2019-11-19 13:18:00* Test Item Value Reference Range Interpretation Comments Urine WBC (test code = 5821-4) 0-5 0-5 [facility] NorthwestErythrocytes detection in urine sediment by light wudsffnsqx5549-78-42 13:18:00* Test Item Value Reference Range Interpretation Comments Urine RBC (test code = 00914-4) 0-5 0-5 [facility] NorthwestBacteria detection in urine sediment by light eyueuwqtnk9385-83-07 13:18:00* Test Item Value Reference Range Interpretation Comments Urine Bacteria (test code = 12445-8) FEW NONE [facility] NorthwestEpithelial cells detection in urine sediment by light ojacjozefm9403-75-69 13:18:00* Test Item Value Reference Range Interpretation Comments Urine Epithelial Cells (test code = 61936-7) FEW NONE [facility] NorthwestManual blood band neutrophils form/100 qppsrqvnzm5700-50-09 06:17:00* Test Item Value Reference Range Interpretation Comments Band Neutrophils % (test code = 764-1) 2 [facility] NorthwestManual basophil dnpnsgfrwx1210-62-56 06:17:00* Test Item Value Reference Range Interpretation Comments Basophils % (Manual) (test code = 88544-9) 1 0-1.5 [facility] metamyelocytes/100 zoymfqyxzb0151-84-95 06:17:00* Test Item Value Reference Range Interpretation Comments Metamyelocytes % (test code = 740-1) 1 0-0 [facility] NorthwestBlood poikilocytosis detection by light aikkslnjlg6780-00-79 05:00:00* Test Item Value Reference Range Interpretation Comments Poikilocytosis (test code = 779-9) SLIGHT [facility] NorthwestCHEST XRAY LINE EVGSVIWQM1482-89-28 21:22:00 [place] [id number] [place] [address] Patient Name: INDIANA BRYAN MR #: [id number] : 1960 Age/Sex: 58/M Req #: [id number] Adm Physician: SAMMY LOPEZ MD Ordered by: SAMMY LOPEZ MD Report #: [id number] Location: MED/SURG2 Room/Bed: 201 Procedure: [id number] DX/CHEST XRAY LI NE PLACEMENT Exam Date: 11/16/19 Exam Time: 2109 REPORT STATUS: Signed EXAMINATION: CHEST XRAY LINE PLACEMENT INDICATION: PICC LINE PLACEMENT, verif y position COMPARISON: Chest x-ray 11/15/2019 FINDINGS: TUBES and LINES: New left upper extremity PICC, tip terminates in the low SVC. LUNGS: Normal lung volumes. Prominent pulmonary vasculature. No consolid ations. PLEURA: No pleural effusion or pneumothorax. HEART AND MEDIAS TINUM: Cardiac size is mildly enlarged. BONES AND SOFT TISSUES: No ac singh osseous lesion. Soft tissues are unremarkable. Sternotomy wires. UPP ER ABDOMEN: No free air under the diaphragm. IMPRESSION: New left upper extremity PICC, tip terminates in the low SVC. Mild cardiomegaly and pulmonary vascular congestion. Signed by: Salomón Angela DO on 11/16/2019 9:32 PM Dictated By: SALOMÓN ANGELA DO 31 Transcribed By: EARL on 11/16/192131 COPY TO: SAMMY LOPEZ MD Stool lactoferrin kzybalrif1670-42-85 23:35:00* Test Item Value Reference Range Interpretation Comments Stool Lactoferrin (LAB) (test code = 28448-8) POSITIVE NEGATIVE Testing on stool aspirate specimens is outside flat finisher claims since specime n type not validated on this assay.[facility] Centertool gastrointestinal hemoglobin frvnwouzb4749-78-51 23:35:00* Test Item Value Reference Range Interpretation Comments Stool Occult Blood (test code = 2335-8) NEGATIVE NEGATIVE [facility] NorthwestClostridium difficile A and B toxin assay 2019-11-15 23:35:00* Test Item Value Reference Range Interpretation Comments Clostridium Difficile Toxin A & B (test code = 278540479) POSI TIVE NEGATIVE Results called to MIGUELINA PIERCE RN at 1030 on 11/16/19 by Arsen Walker. RB OK.Results called to BERTRAM PUTNAM in infection control at 1030 on 11/16/19 by Arsen Walker.Testing on stool aspirate specimens is outside flat finisher c laims since specimen type not validated on this assay.[facility] NorthwestCHEST SINGLE (PORTABLE)2019-11-15 22:44:00 [facility] [address] [place] [address] Patient Name: INDIANA BRYAN MR #: [id number] : 1960 Age/Sex: 58/M Req #: [id number] Adm Physician: SAMMY LOPEZ MD Ordered by: CAROLE DEUTSCH NATUROPATHIC ONCOLOGY PROVIDER Report #: [id number] Location: [facility]/SURG Room/Bed: [facility] Procedure: [id number] DX/CHEST SINGLE (PORTABLE) Exam Date: 11/15/19 Exam Time: 2204 REPORT STATUS: Signed EXAMINATION: CHEST SINGLE (PORTABLE) INDICATION: Leukocytosis COMPARISON: Abdominal CT 11/13/2017 FINDINGS: TUBES and LINES: None. LUNGS/PLEURA: Normal lung volumes. Prominent central pulmonary vasculature and interstitial markings. No pneumothorax. HEART AND MEDIASTINUM: Cardi ac size is mildly enlarged. BONES AND SOFT TISSUES: No acute osseous l esion. Soft tissues are unremarkable. Sternotomy wires. UPPER ABDOMEN: N o free air under the diaphragm. IMPRESSION: Mild cardiomegaly an d pulmonary vascular congestion. Signed by: Salomón Angela DO on 0 10:46 PM Dictated By: SALOMÓN ANGELA DO 45 Transcribed By: EARL on 11/15/192245 COPY TO: CAROLE DEUTSCH NP Automated reticulocyte count as percentage of total jyizxtyzylof7628-36-37 04:40:00* Test Item Value Reference Range Interpretation Comments Percent Reticulocyte Count (test code = 89981-2) 0.8 0.8-2 .2 [facility] Centererum or plasma ferritin measurement (mass/volume)2019-11-15 04:40:00* Test Item Value Reference Range Interpretation Comments Ferritin (test code = 2276-4) 949.96 21.81-274.66 [facility] NorthwestBlood cobalamin (vitamin B12) measurement (mass/volume)2019-11-15 04:40:00* Test Item Value Reference Range Interpretation Comments Vitamin B12 Level (test code = 84924-6) > 2000 213-816 [facility] Centererum or plasma folate measurement (mass/volume)2019-11-15 04:40:00* Test Item Value Reference Range Interpretation Comments Folate (test code = 2284-8) 17.8 >3.0 A serum folate concentration of less than 3.1 ng/mL isconsidered to represent cl inical deficiency.Performed at: - Lab[address] [id number] Director: Timmy Shaffer MD, Phone: [phone] [facility] Healthcare NorthwestProthrombin time (PT) in platelet poor plasma by coagulation sbahj9322-60-68 18:15:00* Test Item Value Reference Range Interpretation Comments Prothrombin Time (test code = 5902-2) 12.8 11.9-14.5 [facility] NorthwestINR in Platelet poor plasma by Coagulation dtlmn8042-82-69 18:15:00* Test Item Value Reference Range Interpretation Comments Prothromb Time International Ratio (test code = 6301-6) 0.92 Oral Anticoagulant Therapy INR Values:1. Low Intensity Therapy 1.5 - 2.02 . Moderate Intensity Therapy 2.0 - 3.03. High Intensity Therapy(1) 2.5 - 3. 54. High Intensity Therapy(2) 3.0 - 4.05. Panic Value INR > 5.0 [facility] NorthwestActivated partial thromboplastin time (aPTT) in platelet poor plasma by coagulation utsvk3866-05-49 18:15:00* Test Item Value Reference Range Interpretation Comments Activated Partial Thromboplast Time (test code = 89928-0) 27.5 23.8-35.5 [facility] NorthwestFluoroscopic procedure less than one hour wpcbjbtx6713-89-46 18:15:00* Test Item Value Reference Range Interpretation Comments Lactic Acid Level (test code = Lactic Acid Level) 1.1 0.5- 2.0 [facility] Centererum or plasma thyrotropin measurement by detection limit <= 0.005 miu/l (units/volume)2019-11-14 18:15:00* Test Item Value Reference Range Interpretation Comments Thyroid Stimulating Hormone (TSH) (test code = 35958-7) 6.668 0.350-4.940 [facility] NorthwestBlood gmqyrpm3045-61-01 18:15:00* Test Item Value Reference Range Interpretation Comments Blood Culture (test code = 39303047) NO GROWTH AFTER 5 DAYS, FINAL REPORT [facility] NorthwestFluoroscopic procedure less than one hour zbslrrut8465-37-64 16:06:00* Test Item Value Reference Range Interpretation Comments Coronavirus (PCR) (test code = Coronavirus (PCR)) NOT DETECTED NOTD ETECTED [email or web address]ptima SARS-CoV-2 assay is a nucleic amplification test intended for the qualitative detection of RNA from SARS-CoV-2 from nasopharyngeal (NATUROPATHIC ONCOLOGY PROVIDER) specimens . It is used under Emergency Use Authorization (EUA) by FDA.A positive result is indicative of the presence of SARS-CoV-2 RNA. Clinical correlation with patient history and other diagnostic information is necessary to determine patient infe ction status.A negative (Not Detected) result does not preclude SARS-CoV-2 infec tion. Clinical Correlation with patient history and other diagnostic information should be used in patient management decisions.Invalid: Unable to generate a va lid result on this specimen. Please submit a new specimen for reprat testing oc clinically indicated.Tesing performed by:[facility] [id number] [place] [address] [id number], Bertram Johnson MD, PhD [facility] [id number] 14:27:00 [facility] [address] [address] Patient Name: INDIANA BRYAN MR #: [id number] : 1960 Age/Sex: 58/M Req #: [id number] Adm Physician: Ordered by: James Pierre MD Report #: [id number] Location: [facility] /Bed: Procedure: [id number] CT/CT BRAIN WO Exam Date: 11/14/19 Exam Time: 1330 REPORT STATUS: Signed EXAMINATION: Head CT HISTORY: 58-year-old male with alteration of consciousness, lethargic, elev ated WBC, diarrhea COMPARISON: None. TECHNIQUE: Helical axial images of t he head were obtained. Dose modulation, iterative reconstruction, and/or weigh t based adjustment of the mA/kV was utilized to reduce the radiation dose to a s low as reasonably achievable. Image quality: Motion/streaking artifact limit s the evaluation of the skull upper segment of the head. FINDINGS: Parenchyma: 1. Few scattered white matter hypodensities, most likely non specific chronic microvascular ischemic changes. 2. No mass or hemorrhage. No CT evidence of acute territorial vascular insult. Extra-axia l spaces:No abnormal density. No extra-axial fluid collections Brain vol ume: Normal for age. Ventricles: No hydrocephalus or displacement. Arteries: Hyperdensity of the [place] vessels and dural sinuses t his related to intravenous contrast used for abdomen CT performed before the h ead CT. Dural sinuses: No abnormal density. Foramen magnum: No m ass, Chiari malformation, or basilar invagination. Sella: No obvious mas s. Paranasal/mastoid sinuses: Imaged portions unremarkable. Sku ll/Scalp: No lytic or blastic lesions. No fractures. IMPRESSION: Sub optimal study due to motion artifact. Grossly no acute intracranial hemorrhage , mass, midline shift or herniation. Signed by: Dr. Dipak Clifford M.D. on 2:30 PM Dictated By: DIPAK CLIFFORD MD 143 Transcribed By: EARL on 11/14/19 143 CO PY TO: JAMES PIERRE MD CT ABDOMEN/PELVIS [id number] 14:19:[address] [address] Patient Name: INDIANA BRYAN MR #: [id number] : 1960 Age/Sex: 58/M Req #: [id number] Adm Physician: Ordered by: James Pierre MD Report #: [id number] Location: [facility]/Bed: Procedure: [id number] CT/CT ABDOM EN/PELVIS W Exam Date: 11/14/19 Exam Time: 1330 REPORT STATUS: Signed EXAM: CT Abdom en and Pelvis WITH intravenous contrast INDICATION: Diarrhea, leukocytosi s COMPARISON: None. TECHNIQUE: Abdomen and pelvis were scanned utilizi ng a multidetector helical scanner from the lung base to the pubic symphysis a fter administration of IV contrast. Coronal and sagittal reformations were obt ained. Routine protocol was performed. Scan was performed during portal venous phase. IV CONTRAST: 100mL of Isovue 370 ORAL CONTRAST: Water R ADIATION DOSE: Total DLP: 905 mGy*cm Dose modulation, iterative reconstr uction, and/or weight based adjustment of the mA/kV was utilized to reduce the radiation dose to as low as reasonably achievable. FINDINGS: LOWER TH ORAX: Dependent right lower lobe subsegmental atelectasis. Trace right and lef t pleural effusions. HEPATOBILIARY: No focal liver lesion. No biliary ducta l dilation. Unremarkable gallbladder. SPLEEN: No splenomegaly. PANCR EAS: No focal masses or ductal dilatation. ADRENALS: No adrenal nodules. KIDNEYS/URETERS: No hydronephrosis, stones, or solid mass lesions. PELVIC ORGA NS/BLADDER: Unremarkable. PERITONEUM / RETROPERITONEUM: Small volume ascite s in the abdomen and pelvis. No free fluid. LYMPH NODES: No lymphadenopathy. VESSELS: Aortic dissection involves the entirety of the visualized lower th oracic aorta and the abdominal aorta with extension to both common iliac arter ies as well as the right external iliac artery. The celiac, SMA, and MIQUEL arise from the false lumen. The renal arteries arise from the true lumen. Moderate atherosclerotic calcifications of the abdominal aorta and major branches. GI TRACT: Diffuse wall thickening of the entirety of the colon to the rectum consistent with pancolitis. Mild associated pericolonic fat stranding. No extr aluminal free air or associated abscess. No bowel obstruction. Normal appendix . BONES AND SOFT TISSUES: No acute osseous injury. No suspicious lytic or b lastic lesions. Degenerative changes and levoconvex curvature of the thoracolu mbar spine. Grade 1 anterolisthesis at L4-5 with associated bilateral L4 pars interarticularis defects. Diffuse subcutaneous soft tissue edema. IMPRESS ION: Aortic dissection involves the visualized descending thoracic aorta as w ell as the entirety of the abdominal aorta with extension to both common iliac arteries as well as the right external iliac artery. Diffuse wall thicke crista of the entirety of the colon consistent with pancolitis. No evidence of p erforation or associated abscess. No bowel obstruction. Small volume asci carroll in the abdomen and pelvis. Trace right and left pleural effusions. The above findings were discussed with Dr. Pierre on 11/14/2019 2:19 PM, who responded indicating that the communication was understood. Signed by: Alon Ring MD on 11/14/2019 2:34 PM Dictated By: TRI RING MD Electronical ly Signed By: TRI RING MD on 11/14/19 1434 Transcribed By: EARL on 0 1434 COPY TO: JAMES PIERRE MD Serum or plasma magnesium measurement (mass/volume)2019-11-14 08:40:00* Test Item Value Reference Range Interpretation Comments Magnesium Level (test code = 12496-8) 1.8 1.3-2.1 [facility] by highly sensitive enzyme [id number] 08:40:00* Test Item Value Reference Range Interpretation Comments Troponin I (test code = 75348-9) 0.049 0-0.300 [facility] leukocytes automated count (number/volume)2019-11-09 19:40:00* Test Item Value Reference Range Interpretation Comments White Blood Count (test code = 6690-2) 13.73 4.8-10.8 [facility] erythrocytes automated count (number/volume)2019-11-09 19:40:00* Test Item Value Reference Range Interpretation Comments Red Blood Count (test code = 789-8) 3.34 4.3-5.7 [facility] NorthwestBlood hemoglobin measurement (moles/volume)2019-11-09 19:40:00* Test Item Value Reference Range Interpretation Comments Hemoglobin (test code = 65226-4) 8.9 14.0-18.0 [facility] NorthwestAutomated blood hematocrit (volume fraction)2019-11-09 19:40:00* Test Item Value Reference Range Interpretation Comments Hematocrit (test code = 4544-3) 28.2 38.2-49.6 [facility] NorthwestAutomated erythrocyte mean corpuscular lhobkz9133-53-66 19:40:00* Test Item Value Reference Range Interpretation Comments Mean Corpuscular Volume (test code = 787-2) 84.4 81-99 [facility] NorthwestAutomated erythrocyte mean corpuscular hemoglobin (mass per erythrocyte)2019-11-09 19:40:00* Test Item Value Reference Range Interpretation Comments Mean Corpuscular Hemoglobin (test code = 785-6) 26.6 28-32 [facility] NorthwestAutomated erythrocyte mean corpuscular hemoglobin concentration measurement (mass/volume)2019-11-09 19:40:00* Test Item Value Reference Range Interpretation Comments Mean Corpuscular Hemoglobin Concent (test code = 786-4) 31.6 31-35 [facility] NorthwestRDW JjrMr-Rps5519-20-13 19:40:00* Test Item Value Reference Range Interpretation Comments Red Cell Distribution Width (test code = 94739-3) 15.9 11.7 -14.4 [facility] NorthwestAutomated blood platelet count (count/volume)2019-11-09 19:40:00* Test Item Value Reference Range Interpretation Comments Platelet Count (test code = 777-3) 339 140-360 [facility] NorthwestAutomated blood segmented neutrophil count as percentage of total yvrncqhikk9020-65-55 19:40:00* Test Item Value Reference Range Interpretation Comments Neutrophils (%) (Auto) (test code = 33992-1) 65.7 38.7-80.0 [facility] NorthwestAutomated blood lymphocyte count as percentage ot total qyoltgpqvk2228-41-67 19:40:00* Test Item Value Reference Range Interpretation Comments Lymphocytes (%) (Auto) (test code = 736-9) 3.7 18.0-39.1 [facility] NorthwestAutomated blood monocyte count as percentage of total ogwdtwheqj4259-94-71 19:40:00* Test Item Value Reference Range Interpretation Comments Monocytes (%) (Auto) (test code = 5905-5) 11.1 4.4-11.3 [facility] NorthwestAutomated blood eosinophil count as percentage of total reihazkaup9234-64-89 19:40:00* Test Item Value Reference Range Interpretation Comments Eosinophils (%) (Auto) (test code = 713-8) 1.2 0.0-6.0 [facility] NorthwestAutomated blood basophil count as percentage of total gkfvejkhnf9557-80-49 19:40:00* Test Item Value Reference Range Interpretation Comments Basophils (%) (Auto) (test code = 706-2) 0.4 0.0-1.0 [facility] NorthwestFluoroscopic procedure less than one hour anpypwjx8363-92-06 19:40:00* Test Item Value Reference Range Interpretation Comments IM GRANULOCYTES % (test code = IM GRANULOCYTES %) 17.9 0.0- 1.0 [facility] NorthwestAutomated blood neutrophil count 2019-11-09 19:40:00* Test Item Value Reference Range Interpretation Comments Neutrophils # (Auto) (test code = 751-8) 9.0 2.1-6.9 [facility] NorthwestBlood lymphocytes count (number/volume) 2019-11-09 19:40:00* Test Item Value Reference Range Interpretation Comments Lymphocytes # (Auto) (test code = 79099-9) 0.5 1.0-3.2 [facility] NorthwestBlood monocytes automated count (number/volume)2019-11-09 19:40:00* Test Item Value Reference Range Interpretation Comments Monocytes # (Auto) (test code = 742-7) 1.5 0.2-0.8 [facility] NorthwestAutomated blood eosinophil count 2019-11-09 19:40:00* Test Item Value Reference Range Interpretation Comments Eosinophils # (Auto) (test code = 711-2) 0.2 0.0-0.4 [facility] NorthwestAutomated blood basophil count (count/volume)2019-11-09 19:40:00* Test Item Value Reference Range Interpretation Comments Basophils # (Auto) (test code = 704-7) 0.1 0.0-0.1 [facility] NorthwestFluoroscopic procedure less than one hour izemyatw0853-44-66 19:40:00* Test Item Value Reference Range Interpretation Comments Absolute Immature Granulocyte (auto (carroll t code = Absolute Immature Granulocyte (auto) 2.46 0-0.1 [facility] sodium measurement (moles/volume)2019-11-09 19:40:00* Test Item Value Reference Range Interpretation Comments Sodium Level (test code = 2951-2) 137 136-145 [facility] or plasma potassium measurement (moles/volume)2019-11-09 19:40:00* Test Item Value Reference Range Interpretation Comments Potassium Level (test code = 2823-3) 3.2 3.5-5.1 [facility] or plasma chloride measurement (moles/volume)2019-11-09 19:40:00* Test Item Value Reference Range Interpretation Comments Chloride Level (test code = 2075-0) 99 98-107 [facility] or plasma carbon dioxide, total measurement (moles/volume)2019-11-09 19:40:00* Test Item Value Reference Range Interpretation Comments Carbon Dioxide Level (test code = 2028-9) 27 22-29 [facility] or plasma anion [id number] 19:40:00* Test Item Value Reference Range Interpretation Comments Anion Gap (test code = 43928-0) 14.2 8-16 [facility] or plasma urea nitrogen measurement (mass/volume)2019-11-09 19:40:00* Test Item Value Reference Range Interpretation Comments Blood Urea Nitrogen (test code = 3094-0) 25 7-26 [facility] or plasma creatinine measurement (mass/volume)2019-11-09 19:40:00* Test Item Value Reference Range Interpretation Comments Creatinine (test code = 2160-0) 1.04 0.72-1.25 [facility] or plasma urea nitrogen/creatinine mass bfiya1230-20-83 19:40:00* Test Item Value Reference Range Interpretation Comments BUN/Creatinine Ratio (test code = 3097-3) 24 6-25 [facility] NorthwestEstimated glomerular filtration rate (GFR) whhjeenvqesxp5815-94-75 19:40:00* Test Item Value Reference Range Interpretation Comments Estimat Glomerular Filtration Rate (test code = 053367593) > 60 >60 Ranges were taken from the National Kidney Disease Education Program and the [facility] literature.Reference ranges:60 or greater: Qjqyxd87-65 ( for 3 consecutive months): Chronic kidney disease 15 or less: Kidney failureHCA Houston Healthcare NorthwestGlucose lirkdmfmiuj7620-17-62 19:40:00* Test Item Value Reference Range Interpretation Comments Glucose Level (test code = EAK3568) 106 74-118 [facility] or plasma calcium measurement (mass/volume)2019-11-09 19:40:00* Test Item Value Reference Range Interpretation Comments Calcium Level (test code = 49918-0) 7.5 8.4-10.2 [facility]ererum or plasma total bilirubin measurement (mass/volume)2019-11-09 19:40:00* Test Item Value Reference Range Interpretation Comments Total Bilirubin (test code = 1975-2) 0.2 0.2-1.2 [facility] NorthwestFluoroscopic procedure less than one hour hzrvkohd9744-15-85 19:40:00* Test Item Value Reference Range Interpretation Comments Aspartate Amino Transf (AST/SGOT) (test code = Aspartate Amino Transf (AST/SGOT)) 8 5-34 [facility] Centererum or plasma alanine aminotransferase measurement (enzymatic activity/volume)2019-11-09 19:40:00* Test Item Value Reference Range Interpretation Comments Alanine Aminotransferase (ALT/SGPT) (test code = 1742-6) < 6 0-55 [facility] or plasma protein measurement (mass/volume)2019-11-09 19:40:00* Test Item Value Reference Range Interpretation Comments Total Protein (test code = 2885-2) 4.9 6.5-8.1 [facility]ere[facility] or plasma albumin measurement (mass/volume)2019-11-09 19:40:00* Test Item Value Reference Range Interpretation Comments Albumin (test code = 1751-7) 1.6 3.5-5.0 [facility] NorthwestPlasma globulin measurement (mass/volume) 2019-11-09 19:40:00* Test Item Value Reference Range Interpretation Comments Globulin (test code = 22319-6) 3.3 2.3-3.5 [facility] or plasma albumin/globulin mass cuvbd7952-11-32 19:40:00* Test Item Value Reference Range Interpretation Comments Albumin/Globulin Ratio (test code = 1759-0) 0.5 0.8-2.0 [facility]ererum or plasma alkaline phosphatase measurement (enzymatic activity/volume)2019-11-09 19:40:00* Test Item Value Reference Range Interpretation Comments Alkaline Phosphatase (test code = 6768-6) 83 40-150 [facility] NorthwestTroponin I measurement by highly sensitive enzyme eyesqdawywg1893-69-70 19:40:00* Test Item Value Reference Range Interpretation Comments Troponin I (test code = 90938-1) 0.006 0-0.300 [facility]ererum or plasma lipase measurement (enzymatic activity/volume)2019-11-09 19:40:00* Test Item Value Reference Range Interpretation Comments Lipase (test code = 3040-3) 28 8-78 [facility] Centererum or plasma lipase measurement (enzymatic activity/volume)2019-11-09 19:40:00* Test Item Value Reference Range Interpretation Comments Lipase (test code = 3040-3) 28 878 [facility] NorthwestBASIC METABOLIC [id number] 09:42:00 * Test Item Value Reference Range Interpretation Comments SODIUM (test code = NA) 135 mmol/L 136-145 L POTASSIUM (test code = K) 3.9 mmol/L 3.5-5.1 N CHLORIDE (test code = CL) 102.0 mmol/L 98-107 N CARBON DIOXIDE (test code = CO2) 22.0 mmol/L 21-32 N ANION GAP (test code = GAP) 14.9 10-20 N GLUCOSE (test code = GLU) 75 mg/dL 74-106 N BLOOD UREA NITROGEN (test code = BUN) 15 mg/dL 7-18 N GLOMERULAR FILTRATION RATE (test code = GFR) > 60 mL/min >=60 Estimated GFR by using Modified MDRD formula.Chronic kidney disease is defined as either kidney damageor GFR <60 mL/min/1.73 m2 for >3 months. CREATININE (test code = CREAT) 0.90 mg/dL 0.7-1.3 N BUN/CREATININE RATIO (test code = BUN/CREA) 17.0 10-20 N CALCIUM (test code = CA) 8.0 mg/dL 8.5-10.1 L BASIC METABOLIC [id number] 09:34:00* Test Item Value Reference Range Interpretation Comments SODIUM (test code = NA) 135 mmol/L 136-145 L POTASSIUM (test code = K) 3.9 mmol/L 3.5-5.1 N CHLORIDE (test code = CL) 102.0 mmol/L 98-107 N CARBON DIOXIDE (test code = CO2) mmol/L 21-32 ANION GAP (test code = GAP) 10-20 GLUCOSE (test code = GLU) mg/dL 74-106 BLOOD UREA NITROGEN (test code = BUN) mg/dL 7-18 GLOMERULAR FILTRATION RATE (test code = GFR) mL/min >=60 CREATININE (test code = CREAT) mg/dL 0.7-1.3 BUN/CREATININE RATIO (test code = BUN/CREA) 10-20 CALCIUM (test code = CA) mg/dL 8.5-10.1 COMPREHENSIVE METABOLIC [id number] 00:13:00* Test Item Value Reference Range Interpretation Comments SODIUM (test code = NA) 134 mmol/L 136-145 L POTASSIUM (test code = K) 4.4 mmol/L 3.5-5.1 N CHLORIDE (test code = CL) 101.0 mmol/L 98-107 N CARBON DIOXIDE (test code = CO2) 26.0 mmol/L 21-32 N ANION GAP (test code = GAP) 11.4 10-20 N GLUCOSE (test code = GLU) 92 mg/dL 74-106 N BLOOD UREA NITROGEN (test code = BUN) 15 mg/dL 7-18 N GLOMERULAR FILTRATION RATE (test code = GFR) > 60 mL/min >=60 Estimated GFR by using Modified MDRD formula.Chronic kidney disease is defined as either kidney damageor GFR <60 mL/min/1.73 m2 for >3 months. CREATININE (test code = CREAT) 1.10 mg/dL 0.7-1.3 N BUN/CREATININE RATIO (test code = BUN/CREA) 13.4 10-20 N TOTAL PROTEIN (test code = PROT) 6.6 gram/dL 6.4-8.2 N ALBUMIN (test code = ALB) 2.2 g/dL 3.4-5.0 L GLOBULIN (test code = GLOB) 4.4 gram/dL 2.7-4.2 H ALBUMIN/GLOBULIN RATIO (test code = A/G) 0.5 0.75-1.50 L CALCIUM (test code = CA) 8.4 mg/dL 8.5-10.1 L BILIRUBIN TOTAL (test code = BILT) 0.50 mg/dL 0.0-1.0 N SGOT/AST (test code = AST) 21 IUnit/L 15-37 N SGPT/ALT (test code = ALT) 7 IUnit/L 12-78 L ALKALINE PHOSPHATASE TOTAL (test code = ALKP) 139 IUnit/L 45-117 H Note change in reference range due to change in reagent. THYROID STIMULATING [id number] 00:13:00* Test Item Value Reference Range Interpretation Comments THYROID STIMULATING HORMONE (test code = TSH) 3.860 uIU/mL 0.36-3.7 4 H TSH REFERENCE RANGES: EUTHYROID: 0.35 - 4.3 mIU/mL HYPO : > 5.5 mIU/mL HYPER : < 0.35 mIU/mL COMPREHENSIVE METABOLIC [id number] 23:52:00* Test Item Value Reference Range Interpretation Comments SODIUM (test code = NA) 134 mmol/L 136-145 L POTASSIUM (test code = K) 4.4 mmol/L 3.5-5.1 N CHLORIDE (test code = CL) 101.0 mmol/L 98-107 N CARBON DIOXIDE (test code = CO2) mmol/L 21-32 ANION GAP (test code = GAP) 10-20 GLUCOSE (test code = GLU) mg/dL 74-106 BLOOD UREA NITROGEN (test code = BUN) mg/dL 7-18 GLOMERULAR FILTRATION RATE (test code = GFR) mL/min >=60 CREATININE (test code = CREAT) mg/dL 0.7-1.3 BUN/CREATININE RATIO (test code = BUN/CREA) 10-20 TOTAL PROTEIN (test code = PROT) gram/dL 6.4-8.2 ALBUMIN (test code = ALB) g/dL 3.4-5.0 GLOBULIN (test code = GLOB) gram/dL 2.7-4.2 ALBUMIN/GLOBULIN RATIO (test code = A/G) 0.75-1.50 CALCIUM (test code = CA) mg/dL 8.5-10.1 BILIRUBIN TOTAL (test code = BILT) mg/dL 0.0-1.0 SGOT/AST (test code = AST) IUnit/L 15-37 SGPT/ALT (test code = ALT) IUnit/L 12-78 ALKALINE PHOSPHATASE TOTAL (test code = ALKP) IUnit/L 45-117 THYROID STIMULATING [id number] 23:52:00* Test Item Value Reference Range Interpretation Comments THYROID STIMULATING HORMONE (test code = TSH) uIU/mL 0.36-3.7 4 [id number] 20:59:00* Test Item Value Reference Range Interpretation Comments GLUBED (test code = GLUBED) 84 mg/dL 74-106 N Performed by certified sleeve presser operator at [facility] BASIC METABOLIC [id number] 07:10:00* Test Item Value Reference Range Interpretation Comments SODIUM (test code = NA) 138 mmol/L 136-145 N POTASSIUM (test code = K) 3.4 mmol/L 3.5-5.1 L CHLORIDE (test code = CL) 105.0 mmol/L 98-107 N CARBON DIOXIDE (test code = CO2) 24.0 mmol/L 21-32 N ANION GAP (test code = GAP) 12.4 10-20 N GLUCOSE (test code = GLU) 77 mg/dL 74-106 N BLOOD UREA NITROGEN (test code = BUN) 17 mg/dL 7-18 N GLOMERULAR FILTRATION RATE (test code = GFR) > 60 mL/min >=60 Estimated GFR by using Modified MDRD formula.Chronic kidney disease is defined as either kidney damageor GFR <60 mL/min/1.73 m2 for >3 months. CREATININE (test code = CREAT) 1.10 mg/dL 0.7-1.3 N BUN/CREATININE RATIO (test code = BUN/CREA) 15.7 10-20 N CALCIUM (test code = CA) 8.8 mg/dL 8.5-10.1 N BASIC METABOLIC [id number] 07:03:00* Test Item Value Reference Range Interpretation Comments SODIUM (test code = NA) 138 mmol/L 136-145 N POTASSIUM (test code = K) 3.4 mmol/L 3.5-5.1 L CHLORIDE (test code = CL) 105.0 mmol/L 98-107 N CARBON DIOXIDE (test code = CO2) mmol/L 21-32 ANION GAP (test code = GAP) 10-20 GLUCOSE (test code = GLU) mg/dL 74-106 BLOOD UREA NITROGEN (test code = BUN) mg/dL 7-18 GLOMERULAR FILTRATION RATE (test code = GFR) mL/min >=60 CREATININE (test code = CREAT) mg/dL 0.7-1.3 BUN/CREATININE RATIO (test code = BUN/CREA) 10-20 CALCIUM (test code = CA) mg/dL 8.5-10.1 BASIC METABOLIC [id number] 05:30:00* Test Item Value Reference Range Interpretation Comments SODIUM (test code = NA) 138 mmol/L 136-145 N POTASSIUM (test code = K) 3.6 mmol/L 3.5-5.1 N CHLORIDE (test code = CL) 107.0 mmol/L 98-107 N CARBON DIOXIDE (test code = CO2) 23.0 mmol/L 21-32 N ANION GAP (test code = GAP) 11.6 10-20 N GLUCOSE (test code = GLU) 79 mg/dL 74-106 N BLOOD UREA NITROGEN (test code = BUN) 17 mg/dL 7-18 N GLOMERULAR FILTRATION RATE (test code = GFR) > 60 mL/min >=60 Estimated GFR by using Modified MDRD formula.Chronic kidney disease is defined as either kidney damageor GFR <60 mL/min/1.73 m2 for >3 months. CREATININE (test code = CREAT) 1.20 mg/dL 0.7-1.3 N BUN/CREATININE RATIO (test code = BUN/CREA) 14.2 10-20 N CALCIUM (test code = CA) 8.7 mg/dL 8.5-10.1 N BASIC METABOLIC [id number] 05:28:00* Test Item Value Reference Range Interpretation Comments SODIUM (test code = NA) 138 mmol/L 136-145 N POTASSIUM (test code = K) 3.6 mmol/L 3.5-5.1 N CHLORIDE (test code = CL) 107.0 mmol/L 98-107 N CARBON DIOXIDE (test code = CO2) mmol/L 21-32 ANION GAP (test code = GAP) 10-20 GLUCOSE (test code = GLU) mg/dL 74-106 BLOOD UREA NITROGEN (test code = BUN) mg/dL 7-18 GLOMERULAR FILTRATION RATE (test code = GFR) mL/min >=60 CREATININE (test code = CREAT) mg/dL 0.7-1.3 BUN/CREATININE RATIO (test code = BUN/CREA) 10-20 CALCIUM (test code = CA) mg/dL 8.5-10.1 BASIC METABOLIC [id number] 09:17:00* Test Item Value Reference Range Interpretation Comments SODIUM (test code = NA) 138 mmol/L 136-145 N POTASSIUM (test code = K) 3.5 mmol/L 3.5-5.1 N CHLORIDE (test code = CL) 107.0 mmol/L 98-107 N CARBON DIOXIDE (test code = CO2) 21.0 mmol/L 21-32 N ANION GAP (test code = GAP) 13.5 10-20 N GLUCOSE (test code = GLU) 83 mg/dL 74-106 N BLOOD UREA NITROGEN (test code = BUN) 15 mg/dL 7-18 N GLOMERULAR FILTRATION RATE (test code = GFR) > 60 mL/min >=60 Estimated GFR by using Modified MDRD formula.Chronic kidney disease is defined as either kidney damageor GFR <60 mL/min/1.73 m2 for >3 months. CREATININE (test code = CREAT) 1.20 mg/dL 0.7-1.3 N BUN/CREATININE RATIO (test code = BUN/CREA) 13.0 10-20 N CALCIUM (test code = CA) 9.1 mg/dL 8.5-10.1 N SERUM [id number] 03:52:00* Test Item Value Reference Range Interpretation Comments SERUM IRON (test code = IRON) 20 ug/dL 50-175 L [id number] 16:40:00* Test Item Value Reference Range Interpretation Comments GLYCOSYLATED HEMOGLOBIN (HA1C) (test code = GLYHGB) 5.0 % HbA1 SUGGESTED DIAGNOSIS: HbA1C (%) Diabetic >6.4Prediabetes 5.7 - 6.4Normal <5.7 ESTIMATED AVERAGE GLUCOSE (test code = EAG) 97 MG/DL SPECIMEN COMMENTS: add on to am labsCOMMENTS TO CHROMIUM PLATER: add on to am labs BASIC METABOLIC [id number] 09:56:00* Test Item Value Reference Range Interpretation Comments SODIUM (test code = NA) 136 mmol/L 136-145 N POTASSIUM (test code = K) 3.7 mmol/L 3.5-5.1 N CHLORIDE (test code = CL) 107.0 mmol/L 98-107 N CARBON DIOXIDE (test code = CO2) 19.0 mmol/L 21-32 L ANION GAP (test code = GAP) 13.7 10-20 N GLUCOSE (test code = GLU) 115 mg/dL 74-106 H BLOOD UREA NITROGEN (test code = BUN) 11 mg/dL 7-18 N GLOMERULAR FILTRATION RATE (test code = GFR) > 60 mL/min >=60 Estimated GFR by using Modified MDRD formula.Chronic kidney disease is defined as either kidney damageor GFR <60 mL/min/1.73 m2 for >3 months. CREATININE (test code = CREAT) 0.90 mg/dL 0.7-1.3 N BUN/CREATININE RATIO (test code = BUN/CREA) 12.0 10-20 N CALCIUM (test code = CA) 8.7 mg/dL 8.5-10.1 N TOTAL IRON BINDING [id number] 09:47:00* Test Item Value Reference Range Interpretation Comments TOTAL IRON BINDING CAPACITY (test code = TIBC) 210 mcg/dL 250-450 L PT REFUSAL [id number] LAVERNE.V.LAB.SE 09/27/19 1345 PT REFUSED TO DRAW,V.LAB.VP1 0222 RN [id number] 09:47:00* Test Item Value Reference Range Interpretation Comments PHOSPHORUS (test code = PHOS) 3.6 mg/dL 2.5-4.9 N [id number] 09:47:00* Test Item Value Reference Range Interpretation Comments MAGNESIUM (test code = MAG) 1.9 mg/dL 1.8-2.4 N BASIC METABOLIC [id number] 09:45:00* Test Item Value Reference Range Interpretation Comments SODIUM (test code = NA) 136 mmol/L 136-145 N POTASSIUM (test code = K) 3.7 mmol/L 3.5-5.1 N CHLORIDE (test code = CL) 107.0 mmol/L 98-107 N CARBON DIOXIDE (test code = CO2) mmol/L 21-32 ANION GAP (test code = GAP) 10-20 GLUCOSE (test code = GLU) mg/dL 74-106 BLOOD UREA NITROGEN (test code = BUN) mg/dL 7-18 GLOMERULAR FILTRATION RATE (test code = GFR) mL/min >=60 CREATININE (test code = CREAT) mg/dL 0.7-1.3 BUN/CREATININE RATIO (test code = BUN/CREA) 10-20 CALCIUM (test code = CA) mg/dL 8.5-10.1 [id number] 09:45:00* Test Item Value Reference Range Interpretation Comments PHOSPHORUS (test code = PHOS) mg/dL 2.5-4.9 [id number] 09:45:00* Test Item Value Reference Range Interpretation Comments MAGNESIUM (test code = MAG) 1.9 mg/dL 1.8-2.4 N RETICULOCYTE [id number] 09:21:00* Test Item Value Reference Range Interpretation Comments RETICULOCYTE COUNT (test code = RETICT) 1.65 % 0.5-2.0 N RETIC COUNT ABSOLUTE (test code = RET#) 0.058 mill/mm3 0.016-0.095 N IMMATURE RETICULOCYTE FRACTION (test code = IRF) 15.2 % 2.3-1 3.4 H Values above normal range indicate an increase in RBCcellular response from bone marrow. RETICULOCYTE HGB EQUIVALENT (test code = RETHE) 30.5 pg 28.2-3 5.7 N RET-He is a direct estimate of recent functionalavailability of iron in the cell, therefore, decreasedRET-He is indicative of iron deficiency. PT REFUSED TO DRAW V.LAB.VP1 09/27/19 0222 RN [id number] W/AUTO [id number] 09:21:00* Test Item Value Reference Range Interpretation Comments WHITE BLOOD CELL (test code = WBC) 10.9 K/mm3 4.5-12.5 N RED BLOOD CELL (test code = RBC) 3.54 mill/mm3 4.0-5.8 L HEMOGLOBIN (test code = HGB) 10.1 gram/dL 13.0-17.5 L HEMATOCRIT (test code = HCT) 30.8 % 42.0-52.0 L MEAN CELL VOLUME (test code = MCV) 87.0 fL 80-98 N MEAN CELL HGB (test code = MCH) 28.5 picogram 27.0-33.0 N MEAN CELL HGB CONCETRATION (test code = MCHC) 32.8 gram/dL 33.0-36. 0 L RED CELL DISTRIBUTION WIDTH (test code = RDW) 14.5 % 11.6-16. 2 N RED CELL DISTRIBUTION WIDTH SD (test code = RDW-SD) 46.3 fL 37 .0-51.0 N PLATELET COUNT (test code = PLT) 247 K/mm3 150-450 N MEAN PLATELET VOLUME (test code = MPV) 9.9 fL 6.7-11.0 N NEUTROPHIL % (test code = NT%) 79.4 % 39.0-69.0 H IMMATURE GRANULOCYTE % (test code = IG%) 0.8 % 0.0-5.0 N LYMPHOCYTE % (test code = LY%) 7.1 % 25.0-55.0 L MONOCYTE % (test code = MO%) 12.1 % 0.0-10.0 H EOSINOPHIL % (test code = EO%) 0.4 % 0.0-5.0 N BASOPHIL % (test code = BA%) 0.2 % 0.0-1.0 N NUCLEATED RBC % (test code = NRBC%) 0.0 % 0-0 N NEUTROPHIL # (test code = NT#) 8.68 K/mm3 1.8-7.7 H IMMATURE GRANULOCYTE # (test code = IG#) 0.09 x10 3/uL 0-0.03 H LYMPHOCYTE # (test code = LY#) 0.77 K/mm3 1.0-5.0 L MONOCYTE # (test code = MO#) 1.32 K/mm3 0-0.8 H EOSINOPHIL # (test code = EO#) 0.04 K/mm3 0.0-0.5 N BASOPHIL # (test code = BA#) 0.02 K/mm3 0.0-0.2 N NUCLEATED RBC # (test code = NRBC#) 0.00 K/mm3 0.0-0.1 N MANUAL DIFF REQUIRED (test code = MDIFF) NO - XR ABDOMEN [id number] 16:07:00 FAX: Sammy Mccain MD [place]: B St: ADM Name: [facility] : [birth year] 57 Age/S: 58/M [address] Unit #: [id number] Loc: V.4017 [place] [address] Phys: Edis Mcdonough MD Acct: [id number] Dis Date: Status: ADM IN PHONE #: [phone] Exam Date: 09/27/2019 1530 FAX #: [phone] Reason: abdominal distention EXAMS: CPT CODE: [id number] XR ABDOMEN 2V [id number] HISTORY: abdominal distention TECHNIQUE: AP abdomen x-ray COMPARISON: None FINDINGS/ IMPRESSION: Diffuse gaseous distenti on of both the small and large bowel and the stomach is redemonstrated. This is unchanged from the previous exam and may represent a pseudoobstr uction versus ileus. Location: [facility] at 1607 Reported and signed by: Lico Garcia MD CC: Sammy Lopez MD Technologist: ADELA ALCARAZ; Judith Denton(R); ... Trnscrd Date/Time/By: 09/27/2019 (1607) : By: [email or web address] Orig Print D/T: S: 09/27/2019 (1610) PAGE 1 Signed Report FECES OVA [id number] 15:11:00* Test Item Value Reference Range Interpretation Comments CONCENTRATE RESULT (test code = CONC) Final report () These results were obtained using wet preparation(s) andtrichrome stained smear. This test does not include testingfor Cryptosporidium parvum, Cyclospora, or Microsporidia. TRICHROME RESULT (test code = TRIC) SPECIMEN COMMENTS: RANDOMSOURCE: STOOLSPECIMEN DESCRIPTION: RANDOMSPECIMEN COMME NTS: RUSTY GIARDIA [id number] 15:11:00* Test Item Value Reference Range Interpretation Comments AG GIARDIA FECES (test code = GIARDAG) Negative Negative Performed At: [facility] [id number] Leonardo MD Ph:[phone] SPECIMEN COMMENTS: RANDOMSOURCE: STOOLSPECIMEN DESCRIPTION: RANDOMSPECIMEN COMME NTS: GENAOFECES OVA [id number] 15:11:00* Test Item Value Reference Range Interpretation Comments CONCENTRATE RESULT (test code = CONC) Final report () These results were obtained using wet preparation(s) andtrichrome stained smear. This test does not include testingfor Cryptosporidium parvum, Cyclospora, or Microsporidia. TRICHROME RESULT (test code = TRIC) () No ova, cysts, or parasites seen.One negative specimen does not rule out the possibility ofa parasitic infection.Performed At: [facility] [id number] Leonardo MD Ph:[phone] SPECIMEN COMMENTS: RANDOMSOURCE: STOOLSPECIMEN DESCRIPTION: RANDOMSPECIMEN COMME NTS: KAMINicolette GIARDIA [id number] 15:11:00* Test Item Value Reference Range Interpretation Comments AG GIARDIA FECES (test code = GIARDAG) Negative Negative Performed At: [facility] [address] [id number] Leonardo MD Ph:[phone] SPECIMEN COMMENTS: RANDOMSOURCE: STOOLSPECIMEN DESCRIPTION: RANDOMSPECIMEN COMME NTS: [id number] 20:09:00* Test Item Value Reference Range Interpretation Comments GLUBED (test code = GLUBED) 77 mg/dL 74-106 N Performed by certified sleeve presser operator at [facility] [id number] 11:42:00* Test Item Value Reference Range Interpretation Comments GLUBED (test code = GLUBED) 93 mg/dL 74-106 N Performed by certified sleeve presser operator at [facility] [id number] 07:36:00* Test Item Value Reference Range Interpretation Comments GLUBED (test code = GLUBED) 75 mg/dL 74-106 N Performed by certified sleeve presser operator at [facility] BASIC METABOLIC [id number] 05:27:00* Test Item Value Reference Range Interpretation Comments SODIUM (test code = NA) 137 mmol/L 136-145 N POTASSIUM (test code = K) 3.7 mmol/L 3.5-5.1 N CHLORIDE (test code = CL) 110.0 mmol/L 98-107 H CARBON DIOXIDE (test code = CO2) mmol/L 21-32 ANION GAP (test code = GAP) 10-20 GLUCOSE (test code = GLU) mg/dL 74-106 BLOOD UREA NITROGEN (test code = BUN) mg/dL 7-18 GLOMERULAR FILTRATION RATE (test code = GFR) mL/min >=60 CREATININE (test code = CREAT) mg/dL 0.7-1.3 BUN/CREATININE RATIO (test code = BUN/CREA) 10-20 CALCIUM (test code = CA) mg/dL 8.5-10.1 BASIC METABOLIC [id number] 05:27:00* Test Item Value Reference Range Interpretation Comments SODIUM (test code = NA) 137 mmol/L 136-145 N POTASSIUM (test code = K) 3.7 mmol/L 3.5-5.1 N CHLORIDE (test code = CL) 110.0 mmol/L 98-107 H CARBON DIOXIDE (test code = CO2) 21.0 mmol/L 21-32 N ANION GAP (test code = GAP) 9.7 10-20 L GLUCOSE (test code = GLU) 80 mg/dL 74-106 N BLOOD UREA NITROGEN (test code = BUN) 10 mg/dL 7-18 N GLOMERULAR FILTRATION RATE (test code = GFR) > 60 mL/min >=60 Estimated GFR by using Modified MDRD formula.Chronic kidney disease is defined as either kidney damageor GFR <60 mL/min/1.73 m2 for >3 months. CREATININE (test code = CREAT) 0.80 mg/dL 0.7-1.3 N BUN/CREATININE RATIO (test code = BUN/CREA) 12.6 10-20 N CALCIUM (test code = CA) 8.6 mg/dL 8.5-10.1 N [id number] 04:58:00* Test Item Value Reference Range Interpretation Comments HEMOGLOBIN (test code = HGB) 9.6 gram/dL 13.0-17.5 L PLATELET [id number] 04:58:00* Test Item Value Reference Range Interpretation Comments PLATELET COUNT (test code = PLT) 219 K/mm3 150-450 N [id number] 21:08:00* Test Item Value Reference Range Interpretation Comments GLUBED (test code = GLUBED) 102 mg/dL 74-106 N Performed by certified sleeve presser operator at [facility] [id number] 17:00:00* Test Item Value Reference Range Interpretation Comments GLUBED (test code = GLUBED) 88 mg/dL 74-106 N Performed by certified sleeve presser operator at [facility] [id number] 13:40:00* Test Item Value Reference Range Interpretation Comments POTASSIUM (test code = K) 4.0 mmol/L 3.5-5.1 N FECES OVA [id number] 12:08:00* Test Item Value Reference Range Interpretation Comments CONCENTRATE RESULT (test code = CONC) TRICHROME RESULT (test code = TRIC) SPECIMEN COMMENTS: RANDOMSOURCE: STOOLSPECIMEN DESCRIPTION: RANDOMSPECIMEN COMME NTS: GENAOAG GIARDIA [id number] 12:08:00* Test Item Value Reference Range Interpretation Comments AG GIARDIA FECES (test code = GIARDAG) Negative Negative Performed At: [facility] [id number] Kyle L MD Ph:[phone] SPECIMEN COMMENTS: RANDOMSOURCE: STOOLSPECIMEN DESCRIPTION: RANDOMSPECIMEN COMME NTS: [id number] 10:49:00* Test Item Value Reference Range Interpretation Comments GLUBED (test code = GLUBED) 80 mg/dL 74-106 N Performed by certified sleeve presser operator at [facility] [id number] 20:04:00* Test Item Value Reference Range Interpretation Comments GLUBED (test code = GLUBED) 98 mg/dL 74-106 N Performed by certified sleeve presser operator at [facility] [id number] 16:52:00* Test Item Value Reference Range Interpretation Comments GLUBED (test code = GLUBED) 112 mg/dL 74-106 H Performed by certified sleeve presser operator at [facility] [id number] 12:29:00* Test Item Value Reference Range Interpretation Comments GLUBED (test code = GLUBED) 93 mg/dL 74-106 N Performed by certified sleeve presser operator at [facility] BASIC METABOLIC [id number] 11:38:00* Test Item Value Reference Range Interpretation Comments SODIUM (test code = NA) 137 mmol/L 136-145 N POTASSIUM (test code = K) 3.8 mmol/L 3.5-5.1 N CHLORIDE (test code = CL) 109.0 mmol/L 98-107 H CARBON DIOXIDE (test code = CO2) 19.0 mmol/L 21-32 L ANION GAP (test code = GAP) 12.8 10-20 N GLUCOSE (test code = GLU) 86 mg/dL 74-106 N BLOOD UREA NITROGEN (test code = BUN) 8 mg/dL 7-18 N GLOMERULAR FILTRATION RATE (test code = GFR) > 60 mL/min >=60 Estimated GFR by using Modified MDRD formula.Chronic kidney disease is defined as either kidney damageor GFR <60 mL/min/1.73 m2 for >3 months. CREATININE (test code = CREAT) 0.70 mg/dL 0.7-1.3 N BUN/CREATININE RATIO (test code = BUN/CREA) 10.9 10-20 N CALCIUM (test code = CA) 8.0 mg/dL 8.5-10.1 L PATIENT REFUSED NURSE([id number])V.LAB. 09/24/[facility] 2019-[facility] 11:31:00* Test Item Value Reference Range Interpretation Comments SODIUM (test code = NA) 137 mmol/L 136-145 N POTASSIUM (test code = K) 3.8 mmol/L 3.5-5.1 N CHLORIDE (test code = CL) 109.0 mmol/L 98-107 H CARBON DIOXIDE (test code = CO2) mmol/L 21-32 ANION GAP (test code = GAP) 10-20 GLUCOSE (test code = GLU) mg/dL 74-106 BLOOD UREA NITROGEN (test code = BUN) mg/dL 7-18 GLOMERULAR FILTRATION RATE (test code = GFR) mL/min >=60 CREATININE (test code = CREAT) mg/dL 0.7-1.3 BUN/CREATININE RATIO (test code = BUN/CREA) 10-20 CALCIUM (test code = CA) mg/dL 8.5-10.1 PATIENT REFUSED NURSE([id number])V.LAB. 09/24/19 [id number] 08:29:00* Test Item Value Reference Range Interpretation Comments GLUBED (test code = GLUBED) 77 mg/dL 74-106 N Performed by certified sleeve presser operator at [facility] [id number] 21:09:00* Test Item Value Reference Range Interpretation Comments GLUBED (test code = GLUBED) 106 mg/dL 74-106 N Performed by certified sleeve presser operator at [facility] [id number] 17:45:00* Test Item Value Reference Range Interpretation Comments GLUBED (test code = GLUBED) 86 mg/dL 74-106 N Performed by certified sleeve presser operator at [facility] [id number] 12:22:00* Test Item Value Reference Range Interpretation Comments GLUBED (test code = GLUBED) 83 mg/dL 74-106 N Performed by certified sleeve presser operator at [facility] BASIC METABOLIC [id number] 09:18:00* Test Item Value Reference Range Interpretation Comments SODIUM (test code = NA) 137 mmol/L 136-145 N POTASSIUM (test code = K) 3.4 mmol/L 3.5-5.1 L CHLORIDE (test code = CL) 108.0 mmol/L 98-107 H CARBON DIOXIDE (test code = CO2) 21.0 mmol/L 21-32 N ANION GAP (test code = GAP) 11.4 10-20 N GLUCOSE (test code = GLU) 83 mg/dL 74-106 N BLOOD UREA NITROGEN (test code = BUN) 9 mg/dL 7-18 N GLOMERULAR FILTRATION RATE (test code = GFR) > 60 mL/min >=60 Estimated GFR by using Modified MDRD formula.Chronic kidney disease is defined as either kidney damageor GFR <60 mL/min/1.73 m2 for >3 months. CREATININE (test code = CREAT) 0.80 mg/dL 0.7-1.3 N BUN/CREATININE RATIO (test code = BUN/CREA) 11.9 10-20 N CALCIUM (test code = CA) 8.1 mg/dL 8.5-10.1 L BASIC METABOLIC [id number] 09:07:00* Test Item Value Reference Range Interpretation Comments SODIUM (test code = NA) 137 mmol/L 136-145 N POTASSIUM (test code = K) 3.4 mmol/L 3.5-5.1 L CHLORIDE (test code = CL) 108.0 mmol/L 98-107 H CARBON DIOXIDE (test code = CO2) mmol/L 21-32 ANION GAP (test code = GAP) 10-20 GLUCOSE (test code = GLU) mg/dL 74-106 BLOOD UREA NITROGEN (test code = BUN) mg/dL 7-18 GLOMERULAR FILTRATION RATE (test code = GFR) mL/min >=60 CREATININE (test code = CREAT) mg/dL 0.7-1.3 BUN/CREATININE RATIO (test code = BUN/CREA) 10-20 CALCIUM (test code = CA) mg/dL 8.5-10.1 [id number] 08:12:00* Test Item Value Reference Range Interpretation Comments GLUBED (test code = GLUBED) 85 mg/dL 74-106 N Performed by certified sleeve presser operator at [facility] [id number] 20:43:00* Test Item Value Reference Range Interpretation Comments GLUBED (test code = GLUBED) 84 mg/dL 74-106 N Performed by certified sleeve presser operator at [facility] [id number] 15:59:00* Test Item Value Reference Range Interpretation Comments GLUBED (test code = GLUBED) 76 mg/dL 74-106 N [facility] certified sleeve press[facility]ified [facility]~ [id number] 12:19:00* Test Item Value Reference Range Interpretation Comments GLUBED (test code = GLUBED) 78 mg/dL 74-106 N Performed by certified sleeve presser operator at [facility] [id number] 08:28:00* Test Item Value Reference Range Interpretation Comments GLUBED (test code = GLUBED) 76 mg/dL 74-106 N Performed by certified sleeve presser operator at [facility] BASIC METABOLIC [id number] 07:39:00* Test Item Value Reference Range Interpretation Comments SODIUM (test code = NA) 140 mmol/L 136-145 N POTASSIUM (test code = K) 3.2 mmol/L 3.5-5.1 L CHLORIDE (test code = CL) 109.0 mmol/L 98-107 H CARBON DIOXIDE (test code = CO2) 21.0 mmol/L 21-32 N ANION GAP (test code = GAP) 13.2 10-20 N GLUCOSE (test code = GLU) 74 mg/dL 74-106 N BLOOD UREA NITROGEN (test code = BUN) 9 mg/dL 7-18 N GLOMERULAR FILTRATION RATE (test code = GFR) > 60 mL/min >=60 Estimated GFR by using Modified MDRD formula.Chronic kidney disease is defined as either kidney damageor GFR <60 mL/min/1.73 m2 for >3 months. CREATININE (test code = CREAT) 0.70 mg/dL 0.7-1.3 N BUN/CREATININE RATIO (test code = BUN/CREA) 12.0 10-20 N CALCIUM (test code = CA) 8.4 mg/dL 8.5-10.1 L [id number] 21:15:00* Test Item Value Reference Range Interpretation Comments GLUBED (test code = GLUBED) 90 mg/dL 74-106 N Performed by certified sleeve presser operator at [facility] [id number] 16:49:00* Test Item Value Reference Range Interpretation Comments GLUBED (test code = GLUBED) 82 mg/dL 74-106 N Performed by certified sleeve presser operator at [facility] [id number] 12:08:00* Test Item Value Reference Range Interpretation Comments GLUBED (test code = GLUBED) 82 mg/dL 74-106 N Performed by certified sleeve presser operator at [facility] [id number] 08:55:00* Test Item Value Reference Range Interpretation Comments PHOSPHORUS (test code = PHOS) 3.6 mg/dL 2.5-4.9 N PER RN RICHI/[id number] COME BACK AFTER BREAKFAST @0354 V.LAB.[facility] 09/21/19 0550 [id number] 08:55:00* Test Item Value Reference Range Interpretation Comments MAGNESIUM (test code = MAG) 1.9 mg/dL 1.8-2.4 N PER RN RICHI/XOT0466 COME BACK AFTER BREAKFAST @0354 V.LAB.[facility] 09/21/19 0550 BASIC METABOLIC [id number] 08:55:00* Test Item Value Reference Range Interpretation Comments SODIUM (test code = NA) 140 mmol/L 136-145 N POTASSIUM (test code = K) 3.3 mmol/L 3.5-5.1 L CHLORIDE (test code = CL) 108.0 mmol/L 98-107 H CARBON DIOXIDE (test code = CO2) 21.0 mmol/L 21-32 N ANION GAP (test code = GAP) 14.3 10-20 N GLUCOSE (test code = GLU) 84 mg/dL 74-106 N BLOOD UREA NITROGEN (test code = BUN) 8 mg/dL 7-18 N GLOMERULAR FILTRATION RATE (test code = GFR) > 60 mL/min >=60 Estimated GFR by using Modified MDRD formula.Chronic kidney disease is defined as either kidney damageor GFR <60 mL/min/1.73 m2 for >3 months. CREATININE (test code = CREAT) 0.80 mg/dL 0.7-1.3 N BUN/CREATININE RATIO (test code = BUN/CREA) 9.7 10-20 L CALCIUM (test code = CA) 8.2 mg/dL 8.5-10.1 L PER RN RICHI/OJR2227 COME BACK AFTER LATER @0354V.LAB. 0551 [id number] 08:51:00* Test Item Value Reference Range Interpretation Comments PHOSPHORUS (test code = PHOS) mg/dL 2.5-4.9 PER RN RICHI/WET3900 COME BACK AFTER BREAKFAST @0354 V.LAB.[facility] 09/21/19 0550 [id number] 08:51:00* Test Item Value Reference Range Interpretation Comments MAGNESIUM (test code = MAG) 1.9 mg/dL 1.8-2.4 N PER RN RICHI/PIU2046 COME BACK AFTER BREAKFAST @0354 V.LAB.[facility] 09/21/19 0550 BASIC METABOLIC [id number] 08:51:00* Test Item Value Reference Range Interpretation Comments SODIUM (test code = NA) 140 mmol/L 136-145 N POTASSIUM (test code = K) 3.3 mmol/L 3.5-5.1 L CHLORIDE (test code = CL) 108.0 mmol/L 98-107 H CARBON DIOXIDE (test code = CO2) mmol/L 21-32 ANION GAP (test code = GAP) 10-20 GLUCOSE (test code = GLU) mg/dL 74-106 BLOOD UREA NITROGEN (test code = BUN) mg/dL 7-18 GLOMERULAR FILTRATION RATE (test code = GFR) mL/min >=60 CREATININE (test code = CREAT) mg/dL 0.7-1.3 BUN/CREATININE RATIO (test code = BUN/CREA) 10-20 CALCIUM (test code = CA) mg/dL 8.5-10.1 PER RN RICHI/[id number] COME BACK AFTER LATER @0354V.LAB.JS106//20 0551GLUBED 2019-09-21 08:19:00* Test Item Value Reference Range Interpretation Comments GLUBED (test code = GLUBED) 79 mg/dL 74-106 N Performed by certified sleeve presser operator at [facility] [id number] 20:38:00* Test Item Value Reference Range Interpretation Comments GLUBED (test code = GLUBED) 85 mg/dL 74-106 N Performed by certified sleeve presser operator at [facility] [id number] 15:58:00* Test Item Value Reference Range Interpretation Comments GLUBED (test code = GLUBED) 93 mg/dL 74-106 N Performed by certified sleeve presser operator at [facility] [id number] 11:47:00* Test Item Value Reference Range Interpretation Comments GLUBED (test code = GLUBED) 85 mg/dL 74-106 N Performed by certified sleeve presser operator at [facility] BASIC METABOLIC [id number] 09:00:00* Test Item Value Reference Range Interpretation Comments SODIUM (test code = NA) 140 mmol/L 136-145 N POTASSIUM (test code = K) 3.0 mmol/L 3.5-5.1 L CHLORIDE (test code = CL) 109.0 mmol/L 98-107 H CARBON DIOXIDE (test code = CO2) 21.0 mmol/L 21-32 N ANION GAP (test code = GAP) 13.0 10-20 N GLUCOSE (test code = GLU) 80 mg/dL 74-106 N BLOOD UREA NITROGEN (test code = BUN) 7 mg/dL 7-18 N GLOMERULAR FILTRATION RATE (test code = GFR) > 60 mL/min >=60 Estimated GFR by using Modified MDRD formula.Chronic kidney disease is defined as either kidney damageor GFR <60 mL/min/1.73 m2 for >3 months. CREATININE (test code = CREAT) 0.90 mg/dL 0.7-1.3 N BUN/CREATININE RATIO (test code = BUN/CREA) 8.1 10-20 L CALCIUM (test code = CA) 8.1 mg/dL 8.5-10.1 L [id number] 09:00:00* Test Item Value Reference Range Interpretation Comments PHOSPHORUS (test code = PHOS) 3.6 mg/dL 2.5-4.9 N [id number] 09:00:00* Test Item Value Reference Range Interpretation Comments MAGNESIUM (test code = MAG) 2.0 mg/dL 1.8-2.4 N BASIC METABOLIC [id number] 08:55:00* Test Item Value Reference Range Interpretation Comments SODIUM (test code = NA) 140 mmol/L 136-145 N POTASSIUM (test code = K) 3.0 mmol/L 3.5-5.1 L CHLORIDE (test code = CL) 109.0 mmol/L 98-107 H CARBON DIOXIDE (test code = CO2) mmol/L 21-32 ANION GAP (test code = GAP) 10-20 GLUCOSE (test code = GLU) mg/dL 74-106 BLOOD UREA NITROGEN (test code = BUN) mg/dL 7-18 GLOMERULAR FILTRATION RATE (test code = GFR) mL/min >=60 CREATININE (test code = CREAT) mg/dL 0.7-1.3 BUN/CREATININE RATIO (test code = BUN/CREA) 10-20 CALCIUM (test code = CA) mg/dL 8.5-10.1 [id number] 08:55:00* Test Item Value Reference Range Interpretation Comments PHOSPHORUS (test code = PHOS) mg/dL 2.5-4.9 [id number] 08:55:00* Test Item Value Reference Range Interpretation Comments MAGNESIUM (test code = MAG) mg/dL 1.8-2.4 [id number] 08:26:00* Test Item Value Reference Range Interpretation Comments GLUBED (test code = GLUBED) 83 mg/dL 74-106 N Performed by certified sleeve presser operator at [facility] [id number] 20:33:00* Test Item Value Reference Range Interpretation Comments GLUBED (test code = GLUBED) 99 mg/dL 74-106 N Performed by certified sleeve presser operator at [facility] [id number] 16:39:00* Test Item Value Reference Range Interpretation Comments GLUBED (test code = GLUBED) 105 mg/dL 74-106 N Performed by certified sleeve presser operator [facility] HospitalNotified Nurse~ [id number] 13:51:00* Test Item Value Reference Range Interpretation Comments GLUBED (test code = GLUBED) 83 mg/dL 74-106 N Performed by certified [facility] URINE K, [id number] 10:39:00* Test Item Value Reference Range Interpretation Comments URINE K, RANDOM (test code = KU) < 1.0 mmol/L 12-75 L [id number] 10:23:00* Test Item Value Reference Range Interpretation Comments GLUBED (test code = GLUBED) 76 mg/dL 74-106 N Performed by certified sleeve presser operator [facility] BASIC METABOLIC [id number] 07:21:00* Test Item Value Reference Range Interpretation Comments SODIUM (test code = NA) 141 mmol/L 136-145 N POTASSIUM (test code = K) 2.8 mmol/L 3.5-5.1 Re sults called to [id number] by [facility].KN2 09/19/19 0719Critical results verified and read back by Nurse? Y CHLORIDE (test code = CL) 110.0 mmol/L 98-107 H CARBON DIOXIDE (test code = CO2) 23.0 mmol/L 21-32 N ANION GAP (test code = GAP) 10.8 10-20 N GLUCOSE (test code = GLU) 81 mg/dL 74-106 N BLOOD UREA NITROGEN (test code = BUN) 6 mg/dL 7-18 L GLOMERULAR FILTRATION RATE (test code = GFR) > 60 mL/min >=60 Estimated GFR by using Modified MDRD formula.Chronic kidney disease is defined as either kidney damageor GFR <60 mL/min/1.73 m2 for >3 months. CREATININE (test code = CREAT) 0.70 mg/dL 0.7-1.3 N BUN/CREATININE RATIO (test code = BUN/CREA) 8.9 10-20 L CALCIUM (test code = CA) 8.2 mg/dL 8.5-10.1 L [id number] 07:21:00* Test Item Value Reference Range Interpretation Comments PHOSPHORUS (test code = PHOS) 3.3 mg/dL 2.5-4.9 N [id number] 07:21:00* Test Item Value Reference Range Interpretation Comments MAGNESIUM (test code = MAG) 2.0 mg/dL 1.8-2.4 N [id number] 22:13:00* Test Item Value Reference Range Interpretation Comments GLUBED (test code = GLUBED) 85 mg/dL 74-106 N Performed by certified sleeve presser operator at [facility] [id number] 17:34:00* Test Item Value Reference Range Interpretation Comments GLUBED (test code = GLUBED) 90 mg/dL 74-106 N Performed by certified sleeve presser operator at [facility] THYROID STIMULATING [id number] 15:46:00* Test Item Value Reference Range Interpretation Comments THYROID STIMULATING HORMONE (test code = TSH) 7.930 uIU/mL 0.36-3.7 4 H TSH REFERENCE RANGES: EUTHYROID: 0.35 - 4.3 mIU/mL HYPO : > 5.5 mIU/mL HYPER : < 0.35 mIU/mL [id number] 15:40:00* Test Item Value Reference Range Interpretation Comments POTASSIUM (test code = K) 3.8 mmol/L 3.5-5.1 N [id number] 12:38:00* Test Item Value Reference Range Interpretation Comments GLUBED (test code = GLUBED) 85 mg/dL 74-106 N Performed by certified sleeve presser operator at [facility] [id number] 08:43:00* Test Item Value Reference Range Interpretation Comments GLUBED (test code = GLUBED) 84 mg/dL 74-106 N Performed by certified sleeve presser operator at [facility] BASIC METABOLIC [id number] 06:05:00* Test Item Value Reference Range Interpretation Comments SODIUM (test code = NA) 141 mmol/L 136-145 N POTASSIUM (test code = K) 2.7 mmol/L 3.5-5.1 [facility] jordan called to [id number]/MAX KAHN by V.LAB.EMA 09/18/19 0605Critical results verified and read back by Nurse? Y CHLORIDE (test code = CL) 109.0 mmol/L 98-107 H CARBON DIOXIDE (test code = CO2) 24.0 mmol/L 21-32 N ANION GAP (test code = GAP) 10.7 10-20 N GLUCOSE (test code = GLU) 84 mg/dL 74-106 N BLOOD UREA NITROGEN (test code = BUN) 7 mg/dL 7-18 N GLOMERULAR FILTRATION RATE (test code = GFR) > 60 mL/min >=60 Estimated GFR by using Modified MDRD formula.Chronic kidney disease is defined as either kidney damageor GFR <60 mL/min/1.73 m2 for >3 months. CREATININE (test code = CREAT) 0.70 mg/dL 0.7-1.3 N BUN/CREATININE RATIO (test code = BUN/CREA) 10.1 10-20 N CALCIUM (test code = CA) 7.7 mg/dL 8.5-10.1 L CBC W/AUTO [id number] 05:50:00* Test Item Value Reference Range Interpretation Comments WHITE BLOOD CELL (test code = WBC) 3.5 K/mm3 4.5-12.5 L RED BLOOD CELL (test code = RBC) 3.51 mill/mm3 4.0-5.8 L HEMOGLOBIN (test code = HGB) 10.1 gram/dL 13.0-17.5 L HEMATOCRIT (test code = HCT) 29.7 % 42.0-52.0 L MEAN CELL VOLUME (test code = MCV) 84.6 fL 80-98 N MEAN CELL HGB (test code = MCH) 28.8 picogram 27.0-33.0 N MEAN CELL HGB CONCETRATION (test code = MCHC) 34.0 gram/dL 33.0-36. 0 N RED CELL DISTRIBUTION WIDTH (test code = RDW) 14.9 % 11.6-16. 2 N RED CELL DISTRIBUTION WIDTH SD (test code = RDW-SD) 45.8 fL 37 .0-51.0 N PLATELET COUNT (test code = PLT) 235 K/mm3 150-450 N MEAN PLATELET VOLUME (test code = MPV) 9.9 fL 6.7-11.0 N NEUTROPHIL % (test code = NT%) 46.8 % 39.0-69.0 N IMMATURE GRANULOCYTE % (test code = IG%) 0.6 % 0.0-5.0 N LYMPHOCYTE % (test code = LY%) 31.6 % 25.0-55.0 N MONOCYTE % (test code = MO%) 15.3 % 0.0-10.0 H EOSINOPHIL % (test code = EO%) 5.4 % 0.0-5.0 H BASOPHIL % (test code = BA%) 0.3 % 0.0-1.0 N NUCLEATED RBC % (test code = NRBC%) 0.0 % 0-0 N NEUTROPHIL # (test code = NT#) 1.66 K/mm3 1.8-7.7 L IMMATURE GRANULOCYTE # (test code = IG#) 0.02 x10 3/uL 0-0.03 N LYMPHOCYTE # (test code = LY#) 1.12 K/mm3 1.0-5.0 N MONOCYTE # (test code = MO#) 0.54 K/mm3 0-0.8 N EOSINOPHIL # (test code = EO#) 0.19 K/mm3 0.0-0.5 N BASOPHIL # (test code = BA#) 0.01 K/mm3 0.0-0.2 N NUCLEATED RBC # (test code = NRBC#) 0.00 K/mm3 0.0-0.1 N [id number] 21:15:00* Test Item Value Reference Range Interpretation Comments GLUBED (test code = GLUBED) 105 mg/dL 74-106 N Performed by certified sleeve presser operator at [facility] [id number] 16:17:00* Test Item Value Reference Range Interpretation Comments GLUBED (test code = GLUBED) 98 mg/dL 74-106 N Performed by certified sleeve presser operator at [facility] THYROID STIMULATING [id number] 13:25:00* Test Item Value Reference Range Interpretation Comments THYROID STIMULATING HORMONE (test code = TSH) 7.290 uIU/mL 0.36-3.7 4 H TSH REFERENCE RANGES: EUTHYROID: 0.35 - 4.3 mIU/mL HYPO : > 5.5 mIU/mL HYPER : < 0.35 mIU/mL SPECIMEN COMMENTS: add on to am labsCOMMENTS TO CHROMIUM PLATER: add on to am labs [id number] 12:31:00* Test Item Value Reference Range Interpretation Comments GLUBED (test code = GLUBED) 331 mg/dL 74-106 H Performed by certified sleeve presser operator at [facility] [id number] 08:49:00* Test Item Value Reference Range Interpretation Comments GLUBED (test code = GLUBED) 75 mg/dL 74-106 N Performed by certified sleeve presser operator at [facility] BASIC METABOLIC [id number] 06:22:00* Test Item Value Reference Range Interpretation Comments SODIUM (test code = NA) 142 mmol/L 136-145 N POTASSIUM (test code = K) 3.2 mmol/L 3.5-5.1 L CHLORIDE (test code = CL) 112.0 mmol/L 98-107 H CARBON DIOXIDE (test code = CO2) 21.0 mmol/L 21-32 N ANION GAP (test code = GAP) 12.2 10-20 N GLUCOSE (test code = GLU) 75 mg/dL 74-106 N BLOOD UREA NITROGEN (test code = BUN) 5 mg/dL 7-18 L GLOMERULAR FILTRATION RATE (test code = GFR) > 60 mL/min >=60 Estimated GFR by using Modified MDRD formula.Chronic kidney disease is defined as either kidney damageor GFR <60 mL/min/1.73 m2 for >3 months. CREATININE (test code = CREAT) 0.80 mg/dL 0.7-1.3 N BUN/CREATININE RATIO (test code = BUN/CREA) 6.5 10-20 L CALCIUM (test code = CA) 8.1 mg/dL 8.5-10.1 L BASIC METABOLIC [id number] 06:10:00* Test Item Value Reference Range Interpretation Comments SODIUM (test code = NA) 142 mmol/L 136-145 N POTASSIUM (test code = K) 3.2 mmol/L 3.5-5.1 L CHLORIDE (test code = CL) 112.0 mmol/L 98-107 H CARBON DIOXIDE (test code = CO2) mmol/L 21-32 ANION GAP (test code = GAP) 10-20 GLUCOSE (test code = GLU) mg/dL 74-106 BLOOD UREA NITROGEN (test code = BUN) mg/dL 7-18 GLOMERULAR FILTRATION RATE (test code = GFR) mL/min >=60 CREATININE (test code = CREAT) mg/dL 0.7-1.3 BUN/CREATININE RATIO (test code = BUN/CREA) 10-20 CALCIUM (test code = CA) mg/dL 8.5-10.1 [id number] 20:33:00* Test Item Value Reference Range Interpretation Comments GLUBED (test code = GLUBED) 80 mg/dL 74-106 N Performed by certified sleeve presser operator at [facility] [id number] 16:47:00* Test Item Value Reference Range Interpretation Comments GLUBED (test code = GLUBED) 87 mg/dL 74-106 N Performed by certified sleeve presser operator at [facility] [id number] 13:02:00* Test Item Value Reference Range Interpretation Comments GLUBED (test code = GLUBED) 110 mg/dL 74-106 H Performed by certified sleeve presser operator at [facility] [id number] 08:09:00* Test Item Value Reference Range Interpretation Comments GLUBED (test code = GLUBED) 72 mg/dL 74-106 L Performed by certified sleeve presser operator at [facility] BASIC METABOLIC [id number] 07:22:00* Test Item Value Reference Range Interpretation Comments SODIUM (test code = NA) 142 mmol/L 136-145 N POTASSIUM (test code = K) 3.0 mmol/L 3.5-5.1 L CHLORIDE (test code = CL) 111.0 mmol/L 98-107 H CARBON DIOXIDE (test code = CO2) 24.0 mmol/L 21-32 N ANION GAP (test code = GAP) 10.0 10-20 N GLUCOSE (test code = GLU) 76 mg/dL 74-106 N BLOOD UREA NITROGEN (test code = BUN) 6 mg/dL 7-18 L GLOMERULAR FILTRATION RATE (test code = GFR) > 60 mL/min >=60 Estimated GFR by using Modified MDRD formula.Chronic kidney disease is defined as either kidney damageor GFR <60 mL/min/1.73 m2 for >3 months. CREATININE (test code = CREAT) 0.80 mg/dL 0.7-1.3 N BUN/CREATININE RATIO (test code = BUN/CREA) 7.6 10-20 L CALCIUM (test code = CA) 8.1 mg/dL 8.5-10.1 L BASIC METABOLIC [id number] 07:11:00* Test Item Value Reference Range Interpretation Comments SODIUM (test code = NA) 142 mmol/L 136-145 N POTASSIUM (test code = K) 3.0 mmol/L 3.5-5.1 L CHLORIDE (test code = CL) 111.0 mmol/L 98-107 H CARBON DIOXIDE (test code = CO2) mmol/L 21-32 ANION GAP (test code = GAP) 10-20 GLUCOSE (test code = GLU) mg/dL 74-106 BLOOD UREA NITROGEN (test code = BUN) mg/dL 7-18 GLOMERULAR FILTRATION RATE (test code = GFR) mL/min >=60 CREATININE (test code = CREAT) mg/dL 0.7-1.3 BUN/CREATININE RATIO (test code = BUN/CREA) 10-20 CALCIUM (test code = CA) mg/dL 8.5-10.1 [id number] 21:05:00* Test Item Value Reference Range Interpretation Comments GLUBED (test code = GLUBED) 99 mg/dL 74-106 N Performed by certified sleeve presser operator at [facility] [id number] 16:05:00* Test Item Value Reference Range Interpretation Comments GLUBED (test code = GLUBED) 98 mg/dL 74-106 N Performed by certified sleeve presser operator at [facility] [id number] 11:26:00* Test Item Value Reference Range Interpretation Comments GLUBED (test code = GLUBED) 94 mg/dL 74-106 N Performed by certified sleeve presser operator at [facility] [id number] 08:40:00* Test Item Value Reference Range Interpretation Comments GLUBED (test code = GLUBED) 68 mg/dL 74-106 L Performed by certified sleeve presser operator at [facility] BASIC METABOLIC [id number] 07:32:00* Test Item Value Reference Range Interpretation Comments SODIUM (test code = NA) 142 mmol/L 136-145 N POTASSIUM (test code = K) 3.1 mmol/L 3.5-5.1 L CHLORIDE (test code = CL) 111.0 mmol/L 98-107 H CARBON DIOXIDE (test code = CO2) 23.0 mmol/L 21-32 N ANION GAP (test code = GAP) 11.1 10-20 N GLUCOSE (test code = GLU) 83 mg/dL 74-106 N BLOOD UREA NITROGEN (test code = BUN) 5 mg/dL 7-18 L GLOMERULAR FILTRATION RATE (test code = GFR) > 60 mL/min >=60 Estimated GFR by using Modified MDRD formula.Chronic kidney disease is defined as either kidney damageor GFR <60 mL/min/1.73 m2 for >3 months. CREATININE (test code = CREAT) 0.80 mg/dL 0.7-1.3 N BUN/CREATININE RATIO (test code = BUN/CREA) 6.6 10-20 L CALCIUM (test code = CA) 8.0 mg/dL 8.5-10.1 L [id number] 07:32:00* Test Item Value Reference Range Interpretation Comments MAGNESIUM (test code = MAG) 1.8 mg/dL 1.8-2.4 N BASIC METABOLIC [id number] 07:29:00* Test Item Value Reference Range Interpretation Comments SODIUM (test code = NA) 142 mmol/L 136-145 N POTASSIUM (test code = K) 3.1 mmol/L 3.5-5.1 L CHLORIDE (test code = CL) 111.0 mmol/L 98-107 H CARBON DIOXIDE (test code = CO2) mmol/L 21-32 ANION GAP (test code = GAP) 10-20 GLUCOSE (test code = GLU) mg/dL 74-106 BLOOD UREA NITROGEN (test code = BUN) mg/dL 7-18 GLOMERULAR FILTRATION RATE (test code = GFR) mL/min >=60 CREATININE (test code = CREAT) mg/dL 0.7-1.3 BUN/CREATININE RATIO (test code = BUN/CREA) 10-20 CALCIUM (test code = CA) mg/dL 8.5-10.1 [id number] 07:29:00* Test Item Value Reference Range Interpretation Comments MAGNESIUM (test code = MAG) mg/dL 1.8-2.4 [id number] 22:04:00* Test Item Value Reference Range Interpretation Comments GLUBED (test code = GLUBED) 114 mg/dL 74-106 H Performed by certified sleeve presser operator at [facility] [id number] 22:04:00* Test Item Value Reference Range Interpretation Comments GLUBED (test code = GLUBED) 55 mg/dL 74-106 L Performed by certified sleeve presser [facility] [id number] 16:24:00* Test Item Value Reference Range Interpretation Comments GLUBED (test code = GLUBED) 78 mg/dL 74-106 N Performed by certified sleeve presser operator at [facility] - XR CONT ENEMA W/WO [id number] 16:03:00 FAX: Farhad Bhakta MD [phone] [place]: B St: ADM FAX: Sammy Mccain MD Name: [place] [facility] : 1960 Age/S: 58/[facility] [address] [facility] Unit #: [id number] Loc: V.4[address] [place] [address] Phys: Farhad Peña MD Acct: [id number] Dis Date: Status: ADM IN PHONE #: [phone] Exam Date: 09/12/2019 4195 FAX #: [phone] Reason: N/V COFFEE EMESIS EXAMS: CPT CODE: [id number] XR CONT ENEMA W/WO KUB 12597 EXAM: Gastrografin enema; INFORMATION: Constipatio n, megacolon; IMPRESSION: 1. Extremely elongated colon w ith redundant loops and moderate distention. 2. No evidence of s tenotic lesions. 3. Evaluation of colonic mucosa is limited in this sing le contrast Gastrografin study but there were no obvious filling defects . Fluoroscopy Time: 258 sec CAK : 392.031 mGy Location code: [facility] Electronically Sign ed by Brandon Hawley on 09/14/2019 at 1603 Reported and signed by: Christopher Hawley M.D. CC: aFrhad Peña MD; Sammy Lopez MD Technologist: Judith Yanes RT(R); ALEJO WINN RT(R) Trnnahunrd Charlie e/Time/By: 09/14/2019 (1603) : By: Ying Orig Print D/T: S: 2019 (6820) PAGE 1 Signed Report [id number] 12:29:00* Test Item Value Reference Range Interpretation Comments GLUBED (test code = GLUBED) 83 mg/dL 74-106 N Performed by certified sleeve presser operator at [facility] [id number] 08:05:00* Test Item Value Reference Range Interpretation Comments GLUBED (test code = GLUBED) 81 mg/dL 74-106 N Performed by certified sleeve presser operator at [facility] BASIC METABOLIC [id number] 06:35:00* Test Item Value Reference Range Interpretation Comments SODIUM (test code = NA) 141 mmol/L 136-145 N POTASSIUM (test code = K) 2.9 mmol/L 3.5-5.1 L Re sults called to [id number] by V.LAB.KN2 09/14/19 0635Critical results verified and read back by Nurse? Y CHLORIDE (test code = CL) 112.0 mmol/L 98-107 H CARBON DIOXIDE (test code = CO2) 20.0 mmol/L 21-32 L ANION GAP (test code = GAP) 11.9 10-20 N GLUCOSE (test code = GLU) 76 mg/dL 74-106 N BLOOD UREA NITROGEN (test code = BUN) 4 mg/dL 7-18 L GLOMERULAR FILTRATION RATE (test code = GFR) > 60 mL/min >=60 Estimated GFR by using Modified MDRD formula.Chronic kidney disease is defined as either kidney damageor GFR <60 mL/min/1.73 m2 for >3 months. CREATININE (test code = CREAT) 0.80 mg/dL 0.7-1.3 N BUN/CREATININE RATIO (test code = BUN/CREA) 5.2 10-20 L CALCIUM (test code = CA) 8.2 mg/dL 8.5-10.1 L [id number] 06:10:00* Test Item Value Reference Range Interpretation Comments MAGNESIUM (test code = MAG) 1.9 mg/dL 1.8-2.4 N [id number] 05:13:00* Test Item Value Reference Range Interpretation Comments GLUBED (test code = GLUBED) 73 mg/dL 74-106 L Performed by certified sleeve presser operator at [facility] [id number] 20:29:00* Test Item Value Reference Range Interpretation Comments GLUBED (test code = GLUBED) 69 mg/dL 74-106 L Per[facility] by certified sleeve press[facility] [id number] 16:48:00* Test Item Value Reference Range Interpretation Comments GLUBED (test code = GLUBED) 75 mg/dL 74-106 N Performed by certified sleeve presser operator at [facility] [id number] 12:21:00* Test Item Value Reference Range Interpretation Comments GLUBED (test code = GLUBED) 93 mg/dL 74-106 N Performed by certified sleeve presser operator at [facility] [id number] 08:09:00* Test Item Value Reference Range Interpretation Comments GLUBED (test code = GLUBED) 78 mg/dL 74-106 N Performed by certified sleeve presser operator at [facility] BASIC METABOLIC [id number] 05:32:00* Test Item Value Reference Range Interpretation Comments SODIUM (test code = NA) 146 mmol/L 136-145 H POTASSIUM (test code = K) 3.2 mmol/L 3.5-5.1 L CHLORIDE (test code = CL) 116.0 mmol/L 98-107 H CARBON DIOXIDE (test code = CO2) 22.0 mmol/L 21-32 N ANION GAP (test code = GAP) 11.2 10-20 N GLUCOSE (test code = GLU) 78 mg/dL 74-106 N BLOOD UREA NITROGEN (test code = BUN) 5 mg/dL 7-18 L GLOMERULAR FILTRATION RATE (test code = GFR) > 60 mL/min >=60 Estimated GFR by using Modified MDRD formula.Chronic kidney disease is defined as either kidney damageor GFR <60 mL/min/1.73 m2 for >3 months. CREATININE (test code = CREAT) 0.70 mg/dL 0.7-1.3 N BUN/CREATININE RATIO (test code = BUN/CREA) 6.8 10-20 L CALCIUM (test code = CA) 8.2 mg/dL 8.5-10.1 L [id number] 05:32:00* Test Item Value Reference Range Interpretation Comments MAGNESIUM (test code = MAG) 2.0 mg/dL 1.8-2.4 N BASIC METABOLIC [id number] 05:25:00* Test Item Value Reference Range Interpretation Comments SODIUM (test code = NA) 146 mmol/L 136-145 H POTASSIUM (test code = K) 3.2 mmol/L 3.5-5.1 L CHLORIDE (test code = CL) 116.0 mmol/L 98-107 H CARBON DIOXIDE (test code = CO2) mmol/L 21-32 ANION GAP (test code = GAP) 10-20 GLUCOSE (test code = GLU) mg/dL 74-106 BLOOD UREA NITROGEN (test code = BUN) mg/dL 7-18 GLOMERULAR FILTRATION RATE (test code = GFR) mL/min >=60 CREATININE (test code = CREAT) mg/dL 0.7-1.3 BUN/CREATININE RATIO (test code = BUN/CREA) 10-20 CALCIUM (test code = CA) mg/dL 8.5-10.1 [id number] 05:25:00* Test Item Value Reference Range Interpretation Comments MAGNESIUM (test code = MAG) mg/dL 1.8-2.4 CBC W/AUTO [id number] 04:49:00* Test Item Value Reference Range Interpretation Comments WHITE BLOOD CELL (test code = WBC) 7.1 K/mm3 4.5-12.5 N RED BLOOD CELL (test code = RBC) 3.58 mill/mm3 4.0-5.8 L HEMOGLOBIN (test code = HGB) 10.3 gram/dL 13.0-17.5 L HEMATOCRIT (test code = HCT) 31.0 % 42.0-52.0 L MEAN CELL VOLUME (test code = MCV) 86.6 fL 80-98 N MEAN CELL HGB (test code = MCH) 28.8 picogram 27.0-33.0 N MEAN CELL HGB CONCETRATION (test code = MCHC) 33.2 gram/dL 33.0-36. 0 N RED CELL DISTRIBUTION WIDTH (test code = RDW) 15.1 % 11.6-16. 2 N RED CELL DISTRIBUTION WIDTH SD (test code = RDW-SD) 47.9 fL 37 .0-51.0 N PLATELET COUNT (test code = PLT) 303 K/mm3 150-450 N MEAN PLATELET VOLUME (test code = MPV) 9.5 fL 6.7-11.0 N NEUTROPHIL % (test code = NT%) 67.3 % 39.0-69.0 N IMMATURE GRANULOCYTE % (test code = IG%) 1.0 % 0.0-5.0 N LYMPHOCYTE % (test code = LY%) 9.8 % 25.0-55.0 L MONOCYTE % (test code = MO%) 18.0 % 0.0-10.0 H EOSINOPHIL % (test code = EO%) 3.3 % 0.0-5.0 N BASOPHIL % (test code = BA%) 0.6 % 0.0-1.0 N NUCLEATED RBC % (test code = NRBC%) 0.0 % 0-0 N NEUTROPHIL # (test code = NT#) 4.75 K/mm3 1.8-7.7 N IMMATURE GRANULOCYTE # (test code = IG#) 0.07 x10 3/uL 0-0.03 H LYMPHOCYTE # (test code = LY#) 0.69 K/mm3 1.0-5.0 L MONOCYTE # (test code = MO#) 1.27 K/mm3 0-0.8 H EOSINOPHIL # (test code = EO#) 0.23 K/mm3 0.0-0.5 N BASOPHIL # (test code = BA#) 0.04 K/mm3 0.0-0.2 N NUCLEATED RBC # (test code = NRBC#) 0.00 K/mm3 0.0-0.1 N [id number] 20:17:00* Test Item Value Reference Range Interpretation Comments GLUBED (test code = GLUBED) 98 mg/dL 74-106 N Performed by certified sleeve presser operator at [facility] [id number] 16:17:00* Test Item Value Reference Range Interpretation Comments GLUBED (test code = GLUBED) 70 mg/dL 74-106 L Performed by certified sleeve presser operator at [facility] BASIC METABOLIC [id number] 13:39:00* Test Item Value Reference Range Interpretation Comments SODIUM (test code = NA) 142 mmol/L 136-145 N POTASSIUM (test code = K) 3.4 mmol/L 3.5-5.1 L CHLORIDE (test code = CL) 113.0 mmol/L 98-107 H CARBON DIOXIDE (test code = CO2) 21.0 mmol/L 21-32 N ANION GAP (test code = GAP) 11.4 10-20 N GLUCOSE (test code = GLU) 83 mg/dL 74-106 N BLOOD UREA NITROGEN (test code = BUN) 4 mg/dL 7-18 L GLOMERULAR FILTRATION RATE (test code = GFR) > 60 mL/min >=60 Estimated GFR by using Modified MDRD formula.Chronic kidney disease is defined as either kidney damageor GFR <60 mL/min/1.73 m2 for >3 months. CREATININE (test code = CREAT) 0.80 mg/dL 0.7-1.3 N BUN/CREATININE RATIO (test code = BUN/CREA) 5.2 10-20 L CALCIUM (test code = CA) 8.2 mg/dL 8.5-10.1 L BASIC METABOLIC [id number] 13:27:00* Test Item Value Reference Range Interpretation Comments SODIUM (test code = NA) 142 mmol/L 136-145 N POTASSIUM (test code = K) 3.4 mmol/L 3.5-5.1 L CHLORIDE (test code = CL) 113.0 mmol/L 98-107 H CARBON DIOXIDE (test code = CO2) mmol/L 21-32 ANION GAP (test code = GAP) 10-20 GLUCOSE (test code = GLU) mg/dL 74-106 BLOOD UREA NITROGEN (test code = BUN) mg/dL 7-18 GLOMERULAR FILTRATION RATE (test code = GFR) mL/min >=60 CREATININE (test code = CREAT) mg/dL 0.7-1.3 BUN/CREATININE RATIO (test code = BUN/CREA) 10-20 CALCIUM (test code = CA) mg/dL 8.5-10.1 [id number] 12:50:00* Test Item Value Reference Range Interpretation Comments GLUBED (test code = GLUBED) 86 mg/dL 74-106 N Performed by certified sleeve presser operator at [facility] [id number] 08:20:00* Test Item Value Reference Range Interpretation Comments GLUBED (test code = GLUBED) 85 mg/dL 74-106 N Performed by certified sleeve presser operator at [facility] [id number] 21:20:00* Test Item Value Reference Range Interpretation Comments GLUBED (test code = GLUBED) 88 mg/dL 74-106 N Performed by certified sleeve presser operator at [facility] [id number] 18:02:00* Test Item Value Reference Range Interpretation Comments GLUBED (test code = GLUBED) 81 mg/dL 74-106 N Performed by certified sleeve presser operator at [facility] [id number] 11:32:00* Test Item Value Reference Range Interpretation Comments GLUBED (test code = GLUBED) 87 mg/dL 74-106 N Performed by certified sleeve presser operator at [facility] [id number] 07:41:00* Test Item Value Reference Range Interpretation Comments MAGNESIUM (test code = MAG) 1.8 mg/dL 1.8-2.4 N SPECIMEN COMMENTS: add to [id number] 07:08:00* Test Item Value Reference Range Interpretation Comments GLUBED (test code = GLUBED) 87 mg/dL 74-106 N Performed by certified sleeve presser operator at [facility] BASIC METABOLIC [id number] 07:03:00* Test Item Value Reference Range Interpretation Comments SODIUM (test code = NA) 142 mmol/L 136-145 N POTASSIUM (test code = K) 2.7 mmol/L 3.5-5.1 LL Re sults called to [id number] by [email or web address] 09/11/19 [id number] results verified and read back by Nurse? Y CHLORIDE (test code = CL) 113.0 mmol/L 98-107 H CARBON DIOXIDE (test code = CO2) 21.0 mmol/L 21-32 N ANION GAP (test code = GAP) 10.7 10-20 N GLUCOSE (test code = GLU) 82 mg/dL 74-106 N BLOOD UREA NITROGEN (test code = BUN) 5 mg/dL 7-18 L GLOMERULAR FILTRATION RATE (test code = GFR) > 60 mL/min >=60 Estimated GFR by using Modified MDRD formula.Chronic kidney disease is defined as either kidney damageor GFR <60 mL/min/1.73 m2 for >3 months. CREATININE (test code = CREAT) 0.70 mg/dL 0.7-1.3 N BUN/CREATININE RATIO (test code = BUN/CREA) 7.1 10-20 L CALCIUM (test code = CA) 7.8 mg/dL 8.5-10.1 L [id number] 04:24:00* Test Item Value Reference Range Interpretation Comments GLUBED (test code = GLUBED) 88 mg/dL 74-106 N Performed by certified sleeve presser operator at [facility] [id number] 16:38:00* Test Item Value Reference Range Interpretation Comments GLUBED (test code = GLUBED) 69 mg/dL 74-106 L Performed by certified sleeve presser operator at [facility] BASIC METABOLIC [id number] 16:18:00* Test Item Value Reference Range Interpretation Comments SODIUM (test code = NA) 142 mmol/L 136-145 N POTASSIUM (test code = K) 3.2 mmol/L 3.5-5.1 L CHLORIDE (test code = CL) 114.0 mmol/L 98-107 H CARBON DIOXIDE (test code = CO2) 19.0 mmol/L 21-32 L ANION GAP (test code = GAP) 12.2 10-20 N GLUCOSE (test code = GLU) 79 mg/dL 74-106 N BLOOD UREA NITROGEN (test code = BUN) 6 mg/dL 7-18 L GLOMERULAR FILTRATION RATE (test code = GFR) > 60 mL/min >=60 Estimated GFR by using Modified MDRD formula.Chronic kidney disease is defined as either kidney damageor GFR <60 mL/min/1.73 m2 for >3 months. CREATININE (test code = CREAT) 0.70 mg/dL 0.7-1.3 N BUN/CREATININE RATIO (test code = BUN/CREA) 8.7 10-20 L CALCIUM (test code = CA) 7.9 mg/dL 8.5-10.1 L [id number] 12:07:00* Test Item Value Reference Range Interpretation Comments GLUBED (test code = GLUBED) 86 mg/dL 74-106 N Performed by certified sleeve presser operator at [facility] [id number] 07:56:00* Test Item Value Reference Range Interpretation Comments GLUBED (test code = GLUBED) 77 mg/dL 74-106 N Performed by certified sleeve presser operator at [facility] [id number] 22:43:00* Test Item Value Reference Range Interpretation Comments GLUBED (test code = GLUBED) 92 mg/dL 74-106 N Performed by certified sleeve presser operator at [facility] [id number] 22:43:00* Test Item Value Reference Range Interpretation Comments GLUBED (test code = GLUBED) 107 mg/dL 74-106 H Performed by certified sleeve presser operator at [facility] [id number] 16:42:00* Test Item Value Reference Range Interpretation Comments GLUBED (test code = GLUBED) 94 mg/dL 74-106 N Performed by certified sleeve presser operator at [facility] [id number] 15:37:00* Test Item Value Reference Range Interpretation Comments POTASSIUM (test code = K) 3.1 mmol/L 3.5-5.1 L [id number] 12:16:00* Test Item Value Reference Range Interpretation Comments GLUBED (test code = GLUBED) 114 mg/dL 74-106 H Performed by certified sleeve presser operator at [facility] [id number] 07:52:00* Test Item Value Reference Range Interpretation Comments GLUBED (test code = GLUBED) 89 mg/dL 74-106 N Performed by certified sleeve presser operator at [facility] COMPREHENSIVE METABOLIC [id number] 06:43:00* Test Item Value Reference Range Interpretation Comments SODIUM (test code = NA) 143 mmol/L 136-145 N POTASSIUM (test code = K) 2.7 mmol/L 3.5-5.1 LL Re sults called to [id number] by [facility] 09/09/19 0642Critical results verified and read back by Nurse? Y CHLORIDE (test code = CL) 113.0 mmol/L 98-107 H CARBON DIOXIDE (test code = CO2) 20.0 mmol/L 21-32 L ANION GAP (test code = GAP) 12.7 10-20 N GLUCOSE (test code = GLU) 92 mg/dL 74-106 N BLOOD UREA NITROGEN (test code = BUN) 10 mg/dL 7-18 N GLOMERULAR FILTRATION RATE (test code = GFR) > 60 mL/min >=60 Estimated GFR by using Modified MDRD formula.Chronic kidney disease is defined as either kidney damageor GFR <60 mL/min/1.73 m2 for >3 months. CREATININE (test code = CREAT) 0.90 mg/dL 0.7-1.3 N BUN/CREATININE RATIO (test code = BUN/CREA) 11.3 10-20 N TOTAL PROTEIN (test code = PROT) 6.2 gram/dL 6.4-8.2 L ALBUMIN (test code = ALB) 2.6 g/dL 3.4-5.0 L GLOBULIN (test code = GLOB) 3.6 gram/dL 2.7-4.2 N ALBUMIN/GLOBULIN RATIO (test code = A/G) 0.7 0.75-1.50 L CALCIUM (test code = CA) 8.5 mg/dL 8.5-10.1 N BILIRUBIN TOTAL (test code = BILT) 0.40 mg/dL 0.0-1.0 N SGOT/AST (test code = AST) 12 IUnit/L 15-37 L SGPT/ALT (test code = ALT) 8 IUnit/L 12-78 L ALKALINE PHOSPHATASE TOTAL (test code = ALKP) 103 IUnit/L 45-117 N Note change in reference range due to change in reagent. [id number] 06:43:00* Test Item Value Reference Range Interpretation Comments PHOSPHORUS (test code = PHOS) 1.9 mg/dL 2.5-4.9 L [id number] 06:43:00* Test Item Value Reference Range Interpretation Comments MAGNESIUM (test code = MAG) 2.3 mg/dL 1.8-2.4 N Coronavirus 2018 nCoV [id number] 06:40:00* Test Item Value Reference Range Interpretation Comments Coronavirus 2019 nCoV Bedside (test code = [id number]) Negative [id number] 21:32:00* Test Item Value Reference Range Interpretation Comments GLUBED (test code = GLUBED) 90 mg/dL 74-106 N Performed by certified sleeve presser operator at [facility] [id number] 19:27:00* Test Item Value Reference Range Interpretation Comments GLUBED (test code = GLUBED) 107 mg/dL 74-106 H Performed by certified sleeve presser operator at [facility] [id number] 16:20:00* Test Item Value Reference Range Interpretation Comments GLUBED (test code = GLUBED) 105 mg/dL 74-106 N Performed by certified sleeve presser operator at [facility] [id number] 12:04:00* Test Item Value Reference Range Interpretation Comments GLUBED (test code = GLUBED) 97 mg/dL 74-106 N Performed by certified sleeve presser operator at [facility] [id number] 07:58:00* Test Item Value Reference Range Interpretation Comments GLUBED (test code = GLUBED) 99 mg/dL 74-106 N Performed by certified sleeve presser operator at [facility] COMPREHENSIVE METABOLIC [id number] 06:23:00* Test Item Value Reference Range Interpretation Comments SODIUM (test code = NA) 143 mmol/L 136-145 RESU LT VERIFIED BY REPEAT ANALYSIS POTASSIUM (test code = K) 3.1 mmol/L 3.5-5.1 L CHLORIDE (test code = CL) 111.0 mmol/L 98-107 H CARBON DIOXIDE (test code = CO2) 22.0 mmol/L 21-32 N ANION GAP (test code = GAP) 13.1 10-20 N GLUCOSE (test code = GLU) 103 mg/dL 74-106 N BLOOD UREA NITROGEN (test code = BUN) 10 mg/dL 7-18 N GLOMERULAR FILTRATION RATE (test code = GFR) > 60 mL/min >=60 Estimated GFR by using Modified MDRD formula.Chronic kidney disease is defined as either kidney damageor GFR <60 mL/min/1.73 m2 for >3 months. CREATININE (test code = CREAT) 0.80 mg/dL 0.7-1.3 N BUN/CREATININE RATIO (test code = BUN/CREA) 12.0 10-20 N TOTAL PROTEIN (test code = PROT) 6.1 gram/dL 6.4-8.2 L ALBUMIN (test code = ALB) 2.8 g/dL 3.4-5.0 L GLOBULIN (test code = GLOB) 3.3 gram/dL 2.7-4.2 N ALBUMIN/GLOBULIN RATIO (test code = A/G) 0.8 0.75-1.50 N CALCIUM (test code = CA) 8.9 mg/dL 8.5-10.1 N BILIRUBIN TOTAL (test code = BILT) 0.30 mg/dL 0.0-1.0 N SGOT/AST (test code = AST) 14 IUnit/L 15-37 L SGPT/ALT (test code = ALT) 9 IUnit/L 12-78 L ALKALINE PHOSPHATASE TOTAL (test code = ALKP) 108 IUnit/L 45-117 N Note change in reference range due to change in reagent. [id number] 05:56:00* Test Item Value Reference Range Interpretation Comments PHOSPHORUS (test code = PHOS) 2.7 mg/dL 2.5-4.9 N [id number] 05:56:00* Test Item Value Reference Range Interpretation Comments MAGNESIUM (test code = MAG) 2.6 mg/dL 1.8-2.4 H [id number] 20:02:00* Test Item Value Reference Range Interpretation Comments GLUBED (test code = GLUBED) 84 mg/dL 74-106 N Performed by certified sleeve presser operator at [facility] [id number] 16:16:00* Test Item Value Reference Range Interpretation Comments GLUBED (test code = GLUBED) 88 mg/dL 74-106 N Performed by certified sleeve presser operator at [facility] COMPREHENSIVE METABOLIC [id number] 13:49:00* Test Item Value Reference Range Interpretation Comments SODIUM (test code = NA) 138 mmol/L 136-145 N POTASSIUM (test code = K) 3.2 mmol/L 3.5-5.1 L CHLORIDE (test code = CL) 112.0 mmol/L 98-107 H CARBON DIOXIDE (test code = CO2) 20.0 mmol/L 21-32 L ANION GAP (test code = GAP) 9.2 10-20 L GLUCOSE (test code = GLU) 88 mg/dL 74-106 N BLOOD UREA NITROGEN (test code = BUN) 9 mg/dL 7-18 N GLOMERULAR FILTRATION RATE (test code = GFR) > 60 mL/min >=60 Estimated GFR by using Modified MDRD formula.Chronic kidney disease is defined as either kidney damageor GFR <60 mL/min/1.73 m2 for >3 months. CREATININE (test code = CREAT) 0.80 mg/dL 0.7-1.3 N BUN/CREATININE RATIO (test code = BUN/CREA) 11.1 10-20 N TOTAL PROTEIN (test code = PROT) 5.8 gram/dL 6.4-8.2 L ALBUMIN (test code = ALB) 2.5 g/dL 3.4-5.0 L GLOBULIN (test code = GLOB) 3.3 gram/dL 2.7-4.2 N ALBUMIN/GLOBULIN RATIO (test code = A/G) 0.8 0.75-1.50 N CALCIUM (test code = CA) 8.4 mg/dL 8.5-10.1 L BILIRUBIN TOTAL (test code = BILT) 0.30 mg/dL 0.0-1.0 N SGOT/AST (test code = AST) 11 IUnit/L 15-37 L SGPT/ALT (test code = ALT) 9 IUnit/L 12-78 L ALKALINE PHOSPHATASE TOTAL (test code = ALKP) 102 IUnit/L 45-117 N Note change in reference range due to change in reagent. 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 COMPARISON: CT abdomen from previous exam. Location: [facility]. CTA CHEST: 3-D images. 100 mL of Isovue-370. Automated exposure control. Fusiform aneurysmal dilatation of the ascending aorta at 4.7 cm. Atherosclerotic plaque along its anterior left margin. No dissection within the ascending aorta. Fusiform aneurysmal dilatation of the descending aorta at 4.8 cm. 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 The true lumen is anteriorly and towards the left. The false lumen is posterior and towards the right. Unremarkable SVC. Well-opacified neck vasculature is unremarkable. The left coronary artery origin is from the true lumen as is the right coronary artery o rigin. The left vertebral artery and left subclavian artery origin are fro m the true lumen. The origin of the left common carotid artery is from the false lumen. Mild atherosclerotic calcifications. Unremarka ble thyroid glands which are small. No pathologic adenopathy. Thickened es ophagus. Correlate for esophagitis. Moderate cardiomegaly without pericard ial effusion. Visualized upper abdomen demonstrating distended loo ps of bowel. The dissection extends into the abdominal aorta please see th e abdominal aortic CT report. The subcutaneous tissues and the musculature are normal in appearance. No lytic or blastic lesions are noted within th e bony skeleton. DJD. Patchy bibasal infiltrates with small effusions and subsegmental atelectasis. No congestion is noted. Patchy pos terior upper lobe infiltrates noted also. No bronchiectasis, honeycombing or fibrosis or endobronchial lesions. IMPRESSION: Fusiform aneurysmal dilatation of the ascending aorta at 4.7 cm. Atherosclerotic plaque along its anterior left margin. No dissection within the ascending aorta. Fusiform aneurysmal dilatation of the descen ding aorta at 4.8 cm. Type B dissection beginning at the level of the ao rtic arch is noted. The true lumen is anteriorly and towards the left. T he false lumen is posterior and towards the right. PAGE 1 Signed Report (CONTINUED) [facility] [place] [facility] 1960 Age/S: 58 / M [address] [facility] Unit #: [id number] Loc: [place] [address] Phys: Edis Broussard NP Acct: [id number] Dis Date: Status: ADM IN PHONE #: [phone] Exam Date: 01/2020 1310 FAX #: [phone] Reason: aortic disect ion EXAMS: CPT CODE: [id number] CTA CHEST 90317 <Continued> Unremarkable SVC. Well-opacified neck vasculature is unremarkable. The left coronary artery origin is from the true lumen as is the right coronary artery origin. The left vertebral artery and left subclavian artery origin are from the true lumen. The origin of the left common carotid artery is from the false lumen. Patchy bilateral upper and lower lobe infiltrates. at 1347 Reported and signed by: Saw Pierson M.D. CC: Edis Broussard NP; Sammy Lopez MD Technologist:Jason Clark RT(R),(MR),(CT) CTDI: DLP: Trnscb Date/Time: 09/07/2019 (1347) t.[email or web address].[email or web address] Orig Print D/T: S: 09/07/2019 (9730) PAGE 2 Signed Report COMPREHENSIVE METABOLIC [id number] 13:42:00* Test Item Value Reference Range Interpretation Comments SODIUM (test code = NA) 138 mmol/L 136-145 N POTASSIUM (test code = K) 3.2 mmol/L 3.5-5.1 L CHLORIDE (test code = CL) 112.0 mmol/L 98-107 H CARBON DIOXIDE (test code = CO2) mmol/L 21-32 ANION GAP (test code = GAP) 10-20 GLUCOSE (test code = GLU) mg/dL 74-106 BLOOD UREA NITROGEN (test code = BUN) mg/dL 7-18 GLOMERULAR FILTRATION RATE (test code = GFR) mL/min >=60 CREATININE (test code = CREAT) mg/dL 0.7-1.3 BUN/CREATININE RATIO (test code = BUN/CREA) 10-20 TOTAL PROTEIN (test code = PROT) gram/dL 6.4-8.2 ALBUMIN (test code = ALB) g/dL 3.4-5.0 GLOBULIN (test code = GLOB) gram/dL 2.7-4.2 ALBUMIN/GLOBULIN RATIO (test code = A/G) 0.75-1.50 CALCIUM (test code = CA) mg/dL 8.5-10.1 BILIRUBIN TOTAL (test code = BILT) mg/dL 0.0-1.0 SGOT/AST (test code = AST) IUnit/L 15-37 SGPT/ALT (test code = ALT) IUnit/L 12-78 ALKALINE PHOSPHATASE TOTAL (test code = ALKP) IUnit/L 45-117 [id number] 11:52:00* Test Item Value Reference Range Interpretation Comments GLUBED (test code = GLUBED) 84 mg/dL 74-106 N Performed by certified sleeve presser operator at [facility] [id number] 08:26:00* Test Item Value Reference Range Interpretation Comments GLUBED (test code = GLUBED) 86 mg/dL 74-106 N Performed by certified sleeve presser operator at [facility] SERUM [id number] 06:34:00* Test Item Value Reference Range Interpretation Comments SERUM IRON (test code = IRON) 36 ug/dL 50-175 L [id number] 05:13:00* Test Item Value Reference Range Interpretation Comments PHOSPHORUS (test code = PHOS) 2.0 mg/dL 2.5-4.9 L [id number] 05:13:00* Test Item Value Reference Range Interpretation Comments MAGNESIUM (test code = MAG) 2.0 mg/dL 1.8-2.4 N [id number] 05:09:00* Test Item Value Reference Range Interpretation Comments PHOSPHORUS (test code = PHOS) mg/dL 2.5-4.9 [id number] 05:09:00* Test Item Value Reference Range Interpretation Comments MAGNESIUM (test code = MAG) 2.0 mg/dL 1.8-2.4 N URINALYSIS [id number] 21:21:00* Test Item Value Reference Range Interpretation Comments UA COLOR (test code = COLU) Light-Yellow YELLOW UA APPEARANCE (test code = APPU) CLEAR CLEAR UA GLUCOSE DIPSTICK (test code = DGLUU) NEGATIVE mg/dL NEGATIVE UA BILIRUBIN DIPSTICK (test code = BILU) NEGATIVE mg/dL NEGATIVE UA KETONE DIPSTICK (test code = KETU) TRACE mg/dL NEGATIVE A UA SPECIFIC GRAVITY (test code = SGU) 1.017 1.001-1.035 UA BLOOD DIPSTICK (test code = [place]) Negative mg/dL NEGATIVE UA PH DIPSTICK (test code = LEON) 6.0 5.0-8.0 UA PROTEIN DIPSTICK (test code = PROU) 30 (1+) mg/dL NEGATIVE A UA UROBILINIOGEN DIPSTICK (test code = URO) Normal mg/dL NEGATIVE UA NITRITE DIPSTICK (test code = DOROTHY) NEGATIVE NEGATIVE UA LEUKOCYTE ESTERASE W REFLEX (test code = LEUUR) NEGATIVE Keeley/uL NEGATIVE UA WBC (test code = WBCU) 0-5 per HPF 0-5 UA RBC (test code = RBCU) 0-2 #/HPF 0-5 UA EPITHELIAL CELLS (test code = EPIU) FEW per HPF FEW UA BACTERIA (test code = BACU) MANY #/HPF NONE A UA HYALINE CAST (test code = HYALU) 11-20 #/LPF 0-5 A UA MUCUS (test code = MUCU) FEW #/LPF FEW Urine Source? Clean CatchUR NA,[id number] 21:21:00* Test Item Value Reference Range Interpretation Comments UR NA,RANDOM (test code = ROMY) 31 mmol/L 20-110 N Urine Source? Clean CatchUR CREATININE [id number] 21:21:00* Test Item Value Reference Range Interpretation Comments UR CREATININE RANDOM (test code = CREATU) 142.0 mg/dL 30-125 H Urine Source? Clean [id number] 21:15:00* Test Item Value Reference Range Interpretation Comments GLUBED (test code = GLUBED) 89 mg/dL 74-106 N Performed by certified sleeve presser operator at [facility] URINALYSIS [id number] 21:13:00* Test Item Value Reference Range Interpretation Comments UA COLOR (test code = COLU) Light-Yellow YELLOW UA APPEARANCE (test code = APPU) CLEAR CLEAR UA GLUCOSE DIPSTICK (test code = DGLUU) NEGATIVE mg/dL NEGATIVE UA BILIRUBIN DIPSTICK (test code = BILU) NEGATIVE mg/dL NEGATIVE UA KETONE DIPSTICK (test code = KETU) TRACE mg/dL NEGATIVE A UA SPECIFIC GRAVITY (test code = SGU) 1.017 1.001-1.035 UA BLOOD DIPSTICK (test code = [place]) Negative mg/dL NEGATIVE UA PH DIPSTICK (test code = LEON) 6.0 5.0-8.0 UA PROTEIN DIPSTICK (test code = PROU) 30 (1+) mg/dL NEGATIVE A UA UROBILINIOGEN DIPSTICK (test code = URO) Normal mg/dL NEGATIVE UA NITRITE DIPSTICK (test code = DOROTHY) NEGATIVE NEGATIVE UA LEUKOCYTE ESTERASE W REFLEX (test code = LEUUR) NEGATIVE Keeley/uL NEGATIVE UA WBC (test code = WBCU) 0-5 per HPF 0-5 UA RBC (test code = RBCU) 0-2 #/HPF 0-5 UA EPITHELIAL CELLS (test code = EPIU) FEW per HPF FEW UA BACTERIA (test code = BACU) MANY #/HPF NONE A UA HYALINE CAST (test code = HYALU) 11-20 #/LPF 0-5 A UA MUCUS (test code = MUCU) FEW #/LPF FEW Urine Source? Clean CatchUR NA,[id number] 21:13:00* Test Item Value Reference Range Interpretation Comments UR NA,RANDOM (test code = ROMY) 31 mmol/L 20-110 N Urine Source? Clean CatchUR CREATININE [id number] 21:13:00* Test Item Value Reference Range Interpretation Comments UR CREATININE RANDOM (test code = CREATU) mg/dL 30-125 Urine Source? Clean CatchURINALYSIS [id number] 21:11:00* Test Item Value Reference Range Interpretation Comments UA COLOR (test code = COLU) Light-Yellow YELLOW UA APPEARANCE (test code = APPU) CLEAR CLEAR UA GLUCOSE DIPSTICK (test code = DGLUU) NEGATIVE mg/dL NEGATIVE UA BILIRUBIN DIPSTICK (test code = BILU) NEGATIVE mg/dL NEGATIVE UA KETONE DIPSTICK (test code = KETU) TRACE mg/dL NEGATIVE A UA SPECIFIC GRAVITY (test code = SGU) 1.017 1.001-1.035 UA BLOOD DIPSTICK (test code = [place]) Negative mg/dL NEGATIVE UA PH DIPSTICK (test code = LEON) 6.0 5.0-8.0 UA PROTEIN DIPSTICK (test code = PROU) 30 (1+) mg/dL NEGATIVE A UA UROBILINIOGEN DIPSTICK (test code = URO) Normal mg/dL NEGATIVE UA NITRITE DIPSTICK (test code = DOROTHY) NEGATIVE NEGATIVE UA LEUKOCYTE ESTERASE W REFLEX (test code = LEUUR) NEGATIVE Keeley/uL NEGATIVE UA WBC (test code = WBCU) 0-5 per HPF 0-5 UA RBC (test code = RBCU) 0-2 #/HPF 0-5 UA EPITHELIAL CELLS (test code = EPIU) FEW per HPF FEW UA BACTERIA (test code = BACU) MANY #/HPF NONE A UA HYALINE CAST (test code = HYALU) 11-20 #/LPF 0-5 A UA MUCUS (test code = MUCU) FEW #/LPF FEW Urine Source? Clean CatchUR NA,[id number] 21:11:00* Test Item Value Reference Range Interpretation Comments UR NA,RANDOM (test code = ROMY) mmol/L 20-110 Urine Source? Clean CatchUR CREATININE [id number] 21:11:00* Test Item Value Reference Range Interpretation Comments UR CREATININE RANDOM (test code = CREATU) mg/dL 30-125 Urine Source? Clean Catch- CT ABD PELVIS [id number] 20:27:00 Name: [place] BR[place] : 1960 Age/S: 58 / M [address] [facility]: [id number] Loc: [place], [place] [address] Phys: Jose Mcdonough MD Acct: [id number] Di s Date: Status: ADM IN PHONE #: Exam Date: 09/06/20192011 FAX #: [phone] Reason: abdominal distention EXAMS: CPT CODE: [id number] CT ABD PELVIS W/CONT 03607 REASON FOR EXAM: abdominal distention EXAM ORDER DATE: 09/06/2019 11:53 AM Ordering: Edis Mcdonough MD Attending:Sammy Lopez MD Locatio n:[facility] PROCEDURE: - CT ABD PELVIS W/CONT COMPARISON: FINDINGS: CT images of the abdomen and pelvis were obtained with IV and without oral contrast at 5mm. Dose modulation, iterative kimmy nstruction, and/or weight based adjustment of the MA/KV was utilized to re duce the radiation dose to as low as reasonably achievable. Intravenous contrast: 100cc of Omnipaque 370. The liver, spleen, pancreas are grossly within normal limits. The gallbladder is unremark able by CT The kidneys are within normal limits. The urinary blad racquel is unremarkable. The colon, small bowel, and stomach are within normal limits without evidence of obstruction. The appendix is un remarkable. No evidence of free air or free fluid. IMPRESSION: Abdominal aortic dissection extending to the right iliac ar lynn. The dissection originates in the thoracic segment of the aorta wh ich was not imaged on the abdominal exam. Severe gaseous distention of the colon and small bowel loops suggestive of ileus. No obvious evidenc e of ischemic bowel this time. The celiac trunk, SMA, and MIQUEL are paten t suggesting the mesenteric arteries are being supplied by the true lume n. Dr. Lopez was informed of findings by telephone at 8:25 PM FOR INTERNAL CODING PURPOSES ONLY RESULT CODE: CVR PAGE 1 Signed Report (CONTINUED) Name: [place] BR[place] [facility] : 1960 Age/S: 58 / M [address] [facility] Unit #: [id number] Loc: [place] [address] Phys: Edis Mcdonough MD Acct: [id number] Dis Date: Status: ADM IN PHONE #: [phone] Exam Date: 09/06/20192011 FAX #: [phone] Reason: abdominal distention EXAMS: CPT CODE: [id number] ABD PELVIS W/CONT 06631 < Continued> at 2026 Reported and signed by: Prince Eddy M.D. CC: Sammy Lopez MD Technologist:NIMISHA REID, RT(R) CT CTDI: DLP: Trnscb Date/Time: 09/06/2019 (2026) Brandie Orig Print D/T: S: 09/06/2019 (2029) PAGE 2 Signed Report [id number] 15:42:00* Test Item Value Reference Range Interpretation Comments GLUBED (test code = GLUBED) 94 mg/dL 74-106 N Performed by certified sleeve presser operator at [facility] [id number] 15:42:00* Test Item Value Reference Range Interpretation Comments GLUBED (test code = GLUBED) 135 mg/dL 74-106 H Performed by certified sleeve presser operator at [facility] [id number] 14:07:00* Test Item Value Reference Range Interpretation Comments PHOSPHORUS (test code = PHOS) 4.0 mg/dL 2.5-4.9 N [id number] 14:07:00* Test Item Value Reference Range Interpretation Comments MAGNESIUM (test code = MAG) 2.1 mg/dL 1.8-2.4 N [id number] 10:31:00* Test Item Value Reference Range Interpretation Comments GLUBED (test code = GLUBED) 97 mg/dL 74-106 N Performed by certified sleeve presser operator at [facility] BASIC METABOLIC [id number] 05:25:00* Test Item Value Reference Range Interpretation Comments SODIUM (test code = NA) 144 mmol/L 136-145 N POTASSIUM (test code = K) 3.0 mmol/L 3.5-5.1 L CHLORIDE (test code = CL) 114.0 mmol/L 98-107 H CARBON DIOXIDE (test code = CO2) 21.0 mmol/L 21-32 N ANION GAP (test code = GAP) 12.0 10-20 N GLUCOSE (test code = GLU) 90 mg/dL 74-106 N BLOOD UREA NITROGEN (test code = BUN) 10 mg/dL 7-18 N GLOMERULAR FILTRATION RATE (test code = GFR) > 60 mL/min >=60 Estimated GFR by using Modified MDRD formula.Chronic kidney disease is defined as either kidney damageor GFR <60 mL/min/1.73 m2 for >3 months. CREATININE (test code = CREAT) 1.00 mg/dL 0.7-1.3 N BUN/CREATININE RATIO (test code = BUN/CREA) 10.1 10-20 N CALCIUM (test code = CA) 8.8 mg/dL 8.5-10.1 N BASIC METABOLIC [id number] 05:13:00* Test Item Value Reference Range Interpretation Comments SODIUM (test code = NA) 144 mmol/L 136-145 N POTASSIUM (test code = K) 3.0 mmol/L 3.5-5.1 L CHLORIDE (test code = CL) 114.0 mmol/L 98-107 H CARBON DIOXIDE (test code = CO2) mmol/L 21-32 ANION GAP (test code = GAP) 10-20 GLUCOSE (test code = GLU) mg/dL 74-106 BLOOD UREA NITROGEN (test code = BUN) mg/dL 7-18 GLOMERULAR FILTRATION RATE (test code = GFR) mL/min >=60 CREATININE (test code = CREAT) mg/dL 0.7-1.3 BUN/CREATININE RATIO (test code = BUN/CREA) 10-20 CALCIUM (test code = CA) mg/dL 8.5-10.1 CBC W/AUTO [id number] 04:58:00* Test Item Value Reference Range Interpretation Comments WHITE BLOOD CELL (test code = WBC) 10.8 K/mm3 4.5-12.5 N RED BLOOD CELL (test code = RBC) 3.44 mill/mm3 4.0-5.8 L HEMOGLOBIN (test code = HGB) 10.0 gram/dL 13.0-17.5 L HEMATOCRIT (test code = HCT) 29.9 % 42.0-52.0 L MEAN CELL VOLUME (test code = MCV) 86.9 fL 80-98 N MEAN CELL HGB (test code = MCH) 29.1 picogram 27.0-33.0 N MEAN CELL HGB CONCETRATION (test code = MCHC) 33.4 gram/dL 33.0-36. 0 N RED CELL DISTRIBUTION WIDTH (test code = RDW) 14.5 % 11.6-16. 2 N RED CELL DISTRIBUTION WIDTH SD (test code = RDW-SD) 46.1 fL 37 .0-51.0 N PLATELET COUNT (test code = PLT) 303 K/mm3 150-450 N MEAN PLATELET VOLUME (test code = MPV) 9.4 fL 6.7-11.0 N NEUTROPHIL % (test code = NT%) 87.4 % 39.0-69.0 H IMMATURE GRANULOCYTE % (test code = IG%) 0.5 % 0.0-5.0 N LYMPHOCYTE % (test code = LY%) 5.8 % 25.0-55.0 L MONOCYTE % (test code = MO%) 5.9 % 0.0-10.0 N EOSINOPHIL % (test code = EO%) 0.2 % 0.0-5.0 N BASOPHIL % (test code = BA%) 0.2 % 0.0-1.0 N NUCLEATED RBC % (test code = NRBC%) 0.0 % 0-0 N NEUTROPHIL # (test code = NT#) 9.46 K/mm3 1.8-7.7 H IMMATURE GRANULOCYTE # (test code = IG#) 0.05 x10 3/uL 0-0.03 H LYMPHOCYTE # (test code = LY#) 0.63 K/mm3 1.0-5.0 L MONOCYTE # (test code = MO#) 0.64 K/mm3 0-0.8 N EOSINOPHIL # (test code = EO#) 0.02 K/mm3 0.0-0.5 N BASOPHIL # (test code = BA#) 0.02 K/mm3 0.0-0.2 N NUCLEATED RBC # (test code = NRBC#) 0.00 K/mm3 0.0-0.1 N [id number] 21:51:00* Test Item Value Reference Range Interpretation Comments GLUBED (test code = GLUBED) 95 mg/dL 74-106 N Performed by certified sleeve presser operator at [facility] [id number] 17:26:00* Test Item Value Reference Range Interpretation Comments GLUBED (test code = GLUBED) 106 mg/dL 74-106 N Performed by certified sleeve presser operator at [facility] [id number] 17:26:00* Test Item Value Reference Range Interpretation Comments GLUBED (test code = GLUBED) 100 mg/dL 74-106 N Performed by certified sleeve presser operator at [facility] TOTAL IRON BINDING [id number] 15:01:00* Test Item Value Reference Range Interpretation Comments TOTAL IRON BINDING CAPACITY (test code = TIBC) 245 mcg/dL 250-450 L VITAMIN [id number] 15:01:00* Test Item Value Reference Range Interpretation Comments VITAMIN B12 (test code = VITB12) 281 pg/mL 193-986 N FOLIC [id number] 15:01:00* Test Item Value Reference Range Interpretation Comments FOLIC ACID (test code = FOL) 3.3 ng/mL 3.10-17.50 N RETICULOCYTE [id number] 13:17:00* Test Item Value Reference Range Interpretation Comments RETICULOCYTE COUNT (test code = RETICT) 1.74 % 0.5-2.0 N RETIC COUNT ABSOLUTE (test code = RET#) 0.063 mill/mm3 0.016-0.095 N IMMATURE RETICULOCYTE FRACTION (test code = IRF) 12.1 % 2.3-1 3.4 N Values above normal range indicate an increase in RBCcellular response from bone marrow. RETICULOCYTE HGB EQUIVALENT (test code = RETHE) 34.3 pg 28.2-3 5.7 N RET-He is a direct estimate of recent functionalavailability of iron in the cell, therefore, decreasedRET-He is indicative of iron deficiency. [id number] 08:51:00* Test Item Value Reference Range Interpretation Comments GLUBED (test code = GLUBED) 95 mg/dL 74-106 N Performed by certified sleeve presser operator at [facility] BASIC METABOLIC [id number] 06:52:00* Test Item Value Reference Range Interpretation Comments SODIUM (test code = NA) 143 mmol/L 136-145 N POTASSIUM (test code = K) 2.8 mmol/L 3.5-5.1 [facility] sults called to [id number] by V.LAB.GP 09/05/19 0651Critical results verified and read back by Nurse? Y CHLORIDE (test code = CL) 111.0 mmol/L 98-107 H CARBON DIOXIDE (test code = CO2) 20.0 mmol/L 21-32 L ANION GAP (test code = GAP) 14.8 10-20 N GLUCOSE (test code = GLU) 83 mg/dL 74-106 N BLOOD UREA NITROGEN (test code = BUN) 8 mg/dL 7-18 N GLOMERULAR FILTRATION RATE (test code = GFR) > 60 mL/min >=60 Estimated GFR by using Modified MDRD formula.Chronic kidney disease is defined as either kidney damageor GFR <60 mL/min/1.73 m2 for >3 months. CREATININE (test code = CREAT) 0.80 mg/dL 0.7-1.3 N BUN/CREATININE RATIO (test code = BUN/CREA) 9.7 10-20 L CALCIUM (test code = CA) 8.6 mg/dL 8.5-10.1 N CBC W/AUTO [id number] 05:58:00* Test Item Value Reference Range Interpretation Comments WHITE BLOOD CELL (test code = WBC) 8.2 K/mm3 4.5-12.5 N RED BLOOD CELL (test code = RBC) 3.45 mill/mm3 4.0-5.8 L HEMOGLOBIN (test code = HGB) 10.1 gram/dL 13.0-17.5 L HEMATOCRIT (test code = HCT) 29.7 % 42.0-52.0 L MEAN CELL VOLUME (test code = MCV) 86.1 fL 80-98 N MEAN CELL HGB (test code = MCH) 29.3 picogram 27.0-33.0 N MEAN CELL HGB CONCETRATION (test code = MCHC) 34.0 gram/dL 33.0-36. 0 N RED CELL DISTRIBUTION WIDTH (test code = RDW) 14.3 % 11.6-16. 2 N RED CELL DISTRIBUTION WIDTH SD (test code = RDW-SD) 44.7 fL 37 .0-51.0 N PLATELET COUNT (test code = PLT) 274 K/mm3 150-450 N MEAN PLATELET VOLUME (test code = MPV) 9.5 fL 6.7-11.0 N NEUTROPHIL % (test code = NT%) 80.8 % 39.0-69.0 H IMMATURE GRANULOCYTE % (test code = IG%) 0.2 % 0.0-5.0 N LYMPHOCYTE % (test code = LY%) 7.9 % 25.0-55.0 L MONOCYTE % (test code = MO%) 7.4 % 0.0-10.0 N EOSINOPHIL % (test code = EO%) 3.1 % 0.0-5.0 N BASOPHIL % (test code = BA%) 0.6 % 0.0-1.0 N NUCLEATED RBC % (test code = NRBC%) 0.0 % 0-0 N NEUTROPHIL # (test code = NT#) 6.61 K/mm3 1.8-7.7 N IMMATURE GRANULOCYTE # (test code = IG#) 0.02 x10 3/uL 0-0.03 N LYMPHOCYTE # (test code = LY#) 0.65 K/mm3 1.0-5.0 L MONOCYTE # (test code = MO#) 0.61 K/mm3 0-0.8 N EOSINOPHIL # (test code = EO#) 0.25 K/mm3 0.0-0.5 N BASOPHIL # (test code = BA#) 0.05 K/mm3 0.0-0.2 N NUCLEATED RBC # (test code = NRBC#) 0.00 K/mm3 0.0-0.1 N [id number] 22:38:00* Test Item Value Reference Range Interpretation Comments GLUBED (test code = GLUBED) 93 mg/dL 74-106 N Performed by certified sleeve presser operator at [facility] [id number] 16:36:00* Test Item Value Reference Range Interpretation Comments GLUBED (test code = GLUBED) 90 mg/dL 74-106 N Performed by certified sleeve presser operator at [facility] [id number] 13:37:00* Test Item Value Reference Range Interpretation Comments GLUBED (test code = GLUBED) 96 mg/dL 74-106 N Performed by certified sleeve presser operator at [facility] [id number] 07:33:00* Test Item Value Reference Range Interpretation Comments GLUBED (test code = GLUBED) 81 mg/dL 74-106 N Performed by certified sleeve presser operator at [facility] BASIC METABOLIC [id number] 05:50:00* Test Item Value Reference Range Interpretation Comments SODIUM (test code = NA) 143 mmol/L 136-145 N POTASSIUM (test code = K) 2.9 mmol/L 3.5-5.1 L Re sults called to [id number] by PARVIN 09/04/19 0550Critical results verified and read back by Nurse? Y CHLORIDE (test code = CL) 112.0 mmol/L 98-107 H CARBON DIOXIDE (test code = CO2) 22.0 mmol/L 21-32 N ANION GAP (test code = GAP) 11.9 10-20 N GLUCOSE (test code = GLU) 83 mg/dL 74-106 N BLOOD UREA NITROGEN (test code = BUN) 7 mg/dL 7-18 N GLOMERULAR FILTRATION RATE (test code = GFR) > 60 mL/min >=60 Estimated GFR by using Modified MDRD formula.Chronic kidney disease is defined as either kidney damageor GFR <60 mL/min/1.73 m2 for >3 months. CREATININE (test code = CREAT) 0.80 mg/dL 0.7-1.3 N BUN/CREATININE RATIO (test code = BUN/CREA) 8.5 10-20 L CALCIUM (test code = CA) 8.2 mg/dL 8.5-10.1 L [id number] 20:04:00* Test Item Value Reference Range Interpretation Comments GLUBED (test code = GLUBED) 91 mg/dL 74-106 N Performed by certified sleeve presser operator at [facility] [id number] 15:50:00* Test Item Value Reference Range Interpretation Comments GLUBED (test code = GLUBED) 94 mg/dL 74-106 N Performed by certified sleeve presser operator at [facility] [id number] 11:36:00* Test Item Value Reference Range Interpretation Comments GLUBED (test code = GLUBED) 111 mg/dL 74-106 H Performed by certified sleeve presser operator at [facility] [id number] 08:14:00* Test Item Value Reference Range Interpretation Comments GLUBED (test code = GLUBED) 88 mg/dL 74-106 N Performed by certified sleeve presser operator at [facility] BASIC METABOLIC [id number] 05:34:00* Test Item Value Reference Range Interpretation Comments SODIUM (test code = NA) 144 mmol/L 136-145 N POTASSIUM (test code = K) 3.0 mmol/L 3.5-5.1 L CHLORIDE (test code = CL) 112.0 mmol/L 98-107 H CARBON DIOXIDE (test code = CO2) 23.0 mmol/L 21-32 N ANION GAP (test code = GAP) 12.0 10-20 N GLUCOSE (test code = GLU) 80 mg/dL 74-106 N BLOOD UREA NITROGEN (test code = BUN) 6 mg/dL 7-18 L GLOMERULAR FILTRATION RATE (test code = GFR) > 60 mL/min >=60 Estimated GFR by using Modified MDRD formula.Chronic kidney disease is defined as either kidney damageor GFR <60 mL/min/1.73 m2 for >3 months. CREATININE (test code = CREAT) 0.90 mg/dL 0.7-1.3 N BUN/CREATININE RATIO (test code = BUN/CREA) 6.9 10-20 L CALCIUM (test code = CA) 8.2 mg/dL 8.5-10.1 L BASIC METABOLIC [id number] 05:30:00* Test Item Value Reference Range Interpretation Comments SODIUM (test code = NA) 144 mmol/L 136-145 N POTASSIUM (test code = K) 3.0 mmol/L 3.5-5.1 L CHLORIDE (test code = CL) 112.0 mmol/L 98-107 H CARBON DIOXIDE (test code = CO2) mmol/L 21-32 ANION GAP (test code = GAP) 10-20 GLUCOSE (test code = GLU) mg/dL 74-106 BLOOD UREA NITROGEN (test code = BUN) mg/dL 7-18 GLOMERULAR FILTRATION RATE (test code = GFR) mL/min >=60 CREATININE (test code = CREAT) mg/dL 0.7-1.3 BUN/CREATININE RATIO (test code = BUN/CREA) 10-20 CALCIUM (test code = CA) mg/dL 8.5-10.1 [id number] 21:32:00* Test Item Value Reference Range Interpretation Comments MAGNESIUM (test code = MAG) 1.8 mg/dL 1.8-2.4 N SPECIMEN COMMENTS: add on COMMENTS TO CHROMIUM PLATER: add [id number] 20:17:00* Test Item Value Reference Range Interpretation Comments GLUBED (test code = GLUBED) 99 mg/dL 74-106 N Performed by certified sleeve presser operator at [facility] [id number] 19:59:00* Test Item Value Reference Range Interpretation Comments POTASSIUM (test code = K) 2.6 mmol/L 3.5-5.1 LL Re sults called to [id number] by V.LAB.QUR 09/02/191958Critical results verified and read back by Nurse? Y - XR ABDOMEN AP 1 [id number] 19:36:00 FAX: Sammy Mccain MD [place]: B St: ADM FAX: Carole Cervantes [employer] PROVID[employer] [phone] Name: [place] [facility] : 1960 Age/S: 58/M [address] [facility] Unit #: [id number] Loc: V.4017 [place] [address] Phys: Carole Deutsch NP Acct: [id number] Dis Date: Status: ADM IN PHONE #: [phone] Exam Date: 09/02/20191906 FAX #: [phone] Reason: distention EXAMS: CPT CODE: [id number] XR ABDOMEN AP 1 V 93925 HISTORY: distention TECHNIQUE: AP abdomen x-ray COMPARISON: Abdominal radiograph August 04, 2019 FINDINGS: Diffuse gaseous distention of both the small and large bowel. No intra-abdominal mass effect. No abnormal calcifications are observed. Visualized osseous structures are intact. Visualized thorax is within normal limits. IMPRESSION: Diffuse gaseous distention of both the small and large bowel may represent ileus versus colonic pseudoobstruction. Location: [facility] at 1936 Reported and signed by: Lico Garcia MD CC: Sammy Lopez MD; Carole Deutsch NP Technologist: ARNOL TEE, RT(R); NURYS JAEGER RT(R) Trnwird Date/Time/By: (1935) : By: [email or web address] Orig Print D/T: S: 09/02/2019 (1939) PAGE 1 Signed Report BASIC METABOLIC [id number] 11:02:00* Test Item Value Reference Range Interpretation Comments SODIUM (test code = NA) 144 mmol/L 136-145 N POTASSIUM (test code = K) 2.6 mmol/L 3.5-5.1 Patrizia ortega called to [id number] by CHERELLE 09/02/19 1101Critical results verified and read back by Nurse? Y CHLORIDE (test code = CL) 110.0 mmol/L 98-107 H CARBON DIOXIDE (test code = CO2) 25.0 mmol/L 21-32 N ANION GAP (test code = GAP) 11.6 10-20 N GLUCOSE (test code = GLU) 86 mg/dL 74-106 N BLOOD UREA NITROGEN (test code = BUN) 7 mg/dL 7-18 N GLOMERULAR FILTRATION RATE (test code = GFR) > 60 mL/min >=60 Estimated GFR by using Modified MDRD formula.Chronic kidney disease is defined as either kidney damageor GFR <60 mL/min/1.73 m2 for >3 months. CREATININE (test code = CREAT) 0.90 mg/dL 0.7-1.3 N BUN/CREATININE RATIO (test code = BUN/CREA) 7.8 10-20 L CALCIUM (test code = CA) 8.3 mg/dL 8.5-10.1 L THYROID PROFILE [id number] 10:53:00* Test Item Value Reference Range Interpretation Comments T3 UPTAKE (test code = T3UP) 42.0 % 30.0-40.0 H T4 (THYROXINE) (test code = T4) 9.3 ug/dL 4.5-13.9 N T7 (FREE THYROXINE INDEX) (test code = T7) 3.90 FTI 1.3-5.1 N THYROID STIMULATING HORMONE (test code = TSH) 0.014 uIU/mL 0.36-3.7 4 L TSH REFERENCE RANGES: EUTHYROID: 0.35 - 4.3 mIU/mL HYPO : > 5.5 mIU/mL HYPER : < 0.35 mIU/mL BASIC METABOLIC [id number] 20:56:00* Test Item Value Reference Range Interpretation Comments SODIUM (test code = NA) 142 mmol/L 136-145 N POTASSIUM (test code = K) 2.3 mmol/L 3.5-5.1 LL Re sults called to [id number] by DELFINO 09/01/19ritical results verified and read back by Nurse? Y CHLORIDE (test code = CL) 108.0 mmol/L 98-107 H CARBON DIOXIDE (test code = CO2) 25.0 mmol/L 21-32 N ANION GAP (test code = GAP) 11.3 10-20 N GLUCOSE (test code = GLU) 95 mg/dL 74-106 N BLOOD UREA NITROGEN (test code = BUN) 8 mg/dL 7-18 N GLOMERULAR FILTRATION RATE (test code = GFR) > 60 mL/min >=60 Estimated GFR by using Modified MDRD formula.Chronic kidney disease is defined as either kidney damageor GFR <60 mL/min/1.73 m2 for >3 months. CREATININE (test code = CREAT) 1.00 mg/dL 0.7-1.3 N BUN/CREATININE RATIO (test code = BUN/CREA) 8.1 10-20 L CALCIUM (test code = CA) 8.7 mg/dL 8.5-10.1 N URINALYSIS [id number] 16:32:00* Test Item Value Reference Range Interpretation Comments UA COLOR (test code = COLU) YELLOW YELLOW UA APPEARANCE (test code = APPU) Cloudy CLEAR A UA GLUCOSE DIPSTICK (test code = DGLUU) NEGATIVE mg/dL NEGATIVE UA BILIRUBIN DIPSTICK (test code = BILU) NEGATIVE mg/dL NEGATIVE UA KETONE DIPSTICK (test code = KETU) NEGATIVE mg/dL NEGATIVE UA SPECIFIC GRAVITY (test code = SGU) 1.010 1.001-1.035 UA BLOOD DIPSTICK (test code = ARGENT[place]) Negative mg/dL NEGATIVE UA PH DIPSTICK (test code = LEON) 6.5 5.0-8.0 UA PROTEIN DIPSTICK (test code = PROU) 20 (Trace) mg/dL NEGATIVE A UA UROBILINIOGEN DIPSTICK (test code = URO) Normal mg/dL NEGATIVE UA NITRITE DIPSTICK (test code = DOROTHY) POSITIVE NEGATIVE A UA LEUKOCYTE ESTERASE W REFLEX (test code = LEUUR) 500 Keeley/u L (3+) Keeley/uL NEGATIVE A UA WBC (test code = WBCU) 21-50 per HPF 0-5 A UA RBC (test code = RBCU) 3-5 #/HPF 0-5 UA WBC CLUMPS (test code = WBCUCL) 3-6 /HPF NONE A UA EPITHELIAL CELLS (test code = EPIU) MANY per HPF FEW UA BACTERIA (test code = BACU) MANY #/HPF NONE A UA HYALINE CAST (test code = HYALU) 11-20 #/LPF 0-5 A UA MUCUS (test code = MUCU) FEW #/LPF FEW Urine Source? Clean CatchDRUGS OF ABUSE SCREEN [id number] 16:32:00* Test Item Value Reference Range Interpretation Comments URN COCAINE (test code = COCAURN) NEGATIVE <300 ng/mL URN CANNABINOIDS (test code = CANNABURN) NEGATIVE <50 ng/mL URN AMPHETAMINE (test code = AMPHETURN) NEGATIVE <1000 ng/mL URN BARBITURATE (test code = BARBITURN) NEGATIVE <200 ng/mL URN BENZODIAZEPINE (test code = BENZOURN) NEGATIVE <200 ng/mL URN OPIATES (test code = OPIATURN) NEGATIVE <300 ng/mL URN PHENCYCLIDINE (PCP) (test code = PHENCURN) NEGATIVE <25 ng/ mL URN METHADONE (test code = METHAURN) NEGATIVE <300 ng/mL Urine Source? Clean CatchURINALYSIS [id number] 16:21:00* Test Item Value Reference Range Interpretation Comments UA COLOR (test code = COLU) YELLOW YELLOW UA APPEARANCE (test code = APPU) Cloudy CLEAR A UA GLUCOSE DIPSTICK (test code = DGLUU) NEGATIVE mg/dL NEGATIVE UA BILIRUBIN DIPSTICK (test code = BILU) NEGATIVE mg/dL NEGATIVE UA KETONE DIPSTICK (test code = KETU) NEGATIVE mg/dL NEGATIVE UA SPECIFIC GRAVITY (test code = SGU) 1.010 1.001-1.035 UA BLOOD DIPSTICK (test code = ARGENT[place]) Negative mg/dL NEGATIVE UA PH DIPSTICK (test code = LEON) 6.5 5.0-8.0 UA PROTEIN DIPSTICK (test code = PROU) 20 (Trace) mg/dL NEGATIVE A UA UROBILINIOGEN DIPSTICK (test code = URO) Normal mg/dL NEGATIVE UA NITRITE DIPSTICK (test code = DOROTHY) POSITIVE NEGATIVE A UA LEUKOCYTE ESTERASE W REFLEX (test code = LEUUR) 500 Keeley/u L (3+) Keeley/uL NEGATIVE A UA WBC (test code = WBCU) 21-50 per HPF 0-5 A UA RBC (test code = RBCU) 3-5 #/HPF 0-5 UA WBC CLUMPS (test code = WBCUCL) 3-6 /HPF NONE A UA EPITHELIAL CELLS (test code = EPIU) MANY per HPF FEW UA BACTERIA (test code = BACU) MANY #/HPF NONE A UA HYALINE CAST (test code = HYALU) 11-20 #/LPF 0-5 A UA MUCUS (test code = MUCU) FEW #/LPF FEW Urine Source? Clean CatchDRUGS OF ABUSE SCREEN [id number] 16:21:00* Test Item Value Reference Range Interpretation Comments URN COCAINE (test code = COCAURN) <300 ng/mL URN CANNABINOIDS (test code = CANNABURN) <50 ng/mL URN AMPHETAMINE (test code = AMPHETURN) <1000 ng/mL URN BARBITURATE (test code = BARBITURN) <200 ng/mL URN BENZODIAZEPINE (test code = BENZOURN) <200 ng/mL URN OPIATES (test code = OPIATURN) <300 ng/mL URN PHENCYCLIDINE (PCP) (test code = PHENCURN) <25 ng/ mL URN METHADONE (test code = METHAURN) <300 ng/mL Urine Source? Clean [id number] 15:25:00* Test Item Value Reference Range Interpretation Comments MAGNESIUM (test code = MAG) 1.9 mg/dL 1.8-2.4 N BASIC METABOLIC [id number] 15:18:00* Test Item Value Reference Range Interpretation Comments SODIUM (test code = NA) 143 mmol/L 136-145 N POTASSIUM (test code = K) 2.4 mmol/L 3.5-5.1 [facility] sults called to [id number] by V.LAB.AK 09/01/19 1516Critical results verified and read back by Nurse? Y CHLORIDE (test code = CL) 108.0 mmol/L 98-107 H CARBON DIOXIDE (test code = CO2) 25.0 mmol/L 21-32 N ANION GAP (test code = GAP) 12.4 10-20 N GLUCOSE (test code = GLU) 96 mg/dL 74-106 N BLOOD UREA NITROGEN (test code = BUN) 8 mg/dL 7-18 N GLOMERULAR FILTRATION RATE (test code = GFR) > 60 mL/min >=60 Estimated GFR by using Modified MDRD formula.Chronic kidney disease is defined as either kidney damageor GFR <60 mL/min/1.73 m2 for >3 months. CREATININE (test code = CREAT) 1.10 mg/dL 0.7-1.3 N BUN/CREATININE RATIO (test code = BUN/CREA) 7.1 10-20 L CALCIUM (test code = CA) 8.7 mg/dL 8.5-10.1 N HEPATIC FUNCTION [id number] 15:18:00* Test Item Value Reference Range Interpretation Comments TOTAL PROTEIN (test code = PROT) 6.5 gram/dL 6.4-8.2 N ALBUMIN (test code = ALB) 2.7 g/dL 3.4-5.0 L GLOBULIN (test code = GLOB) 3.8 gram/dL 2.7-4.2 N ALBUMIN/GLOBULIN RATIO (test code = A/G) 0.7 0.75-1.50 L BILIRUBIN TOTAL (test code = BILT) 0.40 mg/dL 0.0-1.0 N BILIRUBIN DIRECT (test code = BILD) 0.13 mg/dL 0.0-0.20 N SGOT/AST (test code = AST) 39 IUnit/L 15-37 H SGPT/ALT (test code = ALT) 14 IUnit/L 12-78 N ALKALINE PHOSPHATASE TOTAL (test code = ALKP) 123 IUnit/L 45-117 H Note change in reference range due to change in reagent. [id number] 15:18:00* Test Item Value Reference Range Interpretation Comments ALCOHOL (test code = ALC) < 3 mg/dL 0.0-3.0 N -- INTERPRETIVE DATA NOTE: POSITIVE SCREENING RESULTS SHOULD BE CONSIDERED PRESUMPTIVE.WHEN COLLECTED FOR MEDICAL PURPOSES ONLY. SPECIMEN WILL NOTBE COLLECTED BY CHAIN OF CUSTODY.IF A CONFIRMATION OF POSITIVE RESULTS IS DESIRED, ACONFIRMATION TEST MUST BE REQUESTED BY THE PHYSICIAN AT ANADDITIONAL CHARGE TO THE PATIENT. CBC W/O [id number] 14:54:00* Test Item Value Reference Range Interpretation Comments WHITE BLOOD CELL (test code = WBC) 8.6 K/mm3 4.5-12.5 N RED BLOOD CELL (test code = RBC) 3.48 mill/mm3 4.0-5.8 L HEMOGLOBIN (test code = HGB) 10.0 gram/dL 13.0-17.5 L HEMATOCRIT (test code = HCT) 29.6 % 42.0-52.0 L MEAN CELL VOLUME (test code = MCV) 85.1 fL 80-98 N MEAN CELL HGB (test code = MCH) 28.7 picogram 27.0-33.0 N MEAN CELL HGB CONCETRATION (test code = MCHC) 33.8 gram/dL 33.0-36. 0 N RED CELL DISTRIBUTION WIDTH (test code = RDW) 14.6 % 11.6-16. 2 N PLATELET COUNT (test code = PLT) 265 K/mm3 150-450 N MEAN PLATELET VOLUME (test code = MPV) 9.3 fL 6.7-11.0 N - XR ABDOMEN AP 1 [id number] 08:49:00 FAX: Sammy Mccain MD [place]: B St: ADM Name: [place] [facility] : [birth year] Age/S: 58/M [address] [facility] Unit #: [id number] Loc: V.3033 [place] [address] Phys: Sammy Lopez MD Acct: [id number] Dis Date: Status: ADM IN PHONE #: [phone] Exam Date: 08/04/2019 08 FAX #: [phone] Reason: distention EXAMS: CPT CODE: [id number] XR ABDOMEN AP 1 V [id number] HISTORY: distention TECHNIQUE: AP abdomen x-ray COMPARISON: Abdominal radiographs M 2019 as well as multiple abdominal radiographs dating back to July 27, 2019 FINDINGS/ IMPRESSION: There is persiste nt gaseous distention of both the small and large bowel that is unchange d from the previous examination. This may represent ileus vers us [place] syndrome. Remaining findings are unchanged. Location: [facility] at 0849 Reported and signed by: Lico Garcia MD CC: Sammy Lopez MD Technologist: ALYSSA CRENSHAW, RT(R); ERICA ROWLAND JR Trnscr d Date/Time/By: 08/04/2019 (49) : By: [email or web address] Orig Print D/T: S: 0 08/04/2019 (3238) PAGE 1 Signed Re port BASIC METABOLIC [id number] 06:26:00* Test Item Value Reference Range Interpretation Comments SODIUM (test code = NA) 141 mmol/L 136-145 N POTASSIUM (test code = K) 3.8 mmol/L 3.5-5.1 N CHLORIDE (test code = CL) 108.0 mmol/L 98-107 H CARBON DIOXIDE (test code = CO2) 26.0 mmol/L 21-32 N ANION GAP (test code = GAP) 10.8 10-20 N GLUCOSE (test code = GLU) 79 mg/dL 74-106 N BLOOD UREA NITROGEN (test code = BUN) 5 mg/dL 7-18 L GLOMERULAR FILTRATION RATE (test code = GFR) > 60 mL/min >=60 Estimated GFR by using Modified MDRD formula.Chronic kidney disease is defined as either kidney damageor GFR <60 mL/min/1.73 m2 for >3 months. CREATININE (test code = CREAT) 0.80 mg/dL 0.7-1.3 N BUN/CREATININE RATIO (test code = BUN/CREA) 6.3 10-20 L CALCIUM (test code = CA) 8.7 mg/dL 8.5-10.1 N BASIC METABOLIC [id number] 06:14:00* Test Item Value Reference Range Interpretation Comments SODIUM (test code = NA) 141 mmol/L 136-145 N POTASSIUM (test code = K) 3.8 mmol/L 3.5-5.1 N CHLORIDE (test code = CL) 108.0 mmol/L 98-107 H CARBON DIOXIDE (test code = CO2) mmol/L 21-32 ANION GAP (test code = GAP) 10-20 GLUCOSE (test code = GLU) mg/dL 74-106 BLOOD UREA NITROGEN (test code = BUN) mg/dL 7-18 GLOMERULAR FILTRATION RATE (test code = GFR) mL/min >=60 CREATININE (test code = CREAT) mg/dL 0.7-1.3 BUN/CREATININE RATIO (test code = BUN/CREA) 10-20 CALCIUM (test code = CA) mg/dL 8.5-10.1 BASIC METABOLIC [id number] 06:37:00* Test Item Value Reference Range Interpretation Comments SODIUM (test code = NA) 141 mmol/L 136-145 N POTASSIUM (test code = K) 3.2 mmol/L 3.5-5.1 L CHLORIDE (test code = CL) 107.0 mmol/L 98-107 N CARBON DIOXIDE (test code = CO2) 29.0 mmol/L 21-32 N ANION GAP (test code = GAP) 8.2 10-20 L GLUCOSE (test code = GLU) 89 mg/dL 74-106 N BLOOD UREA NITROGEN (test code = BUN) 5 mg/dL 7-18 L GLOMERULAR FILTRATION RATE (test code = GFR) > 60 mL/min >=60 Estimated GFR by using Modified MDRD formula.Chronic kidney disease is defined as either kidney damageor GFR <60 mL/min/1.73 m2 for >3 months. CREATININE (test code = CREAT) 0.90 mg/dL 0.7-1.3 N BUN/CREATININE RATIO (test code = BUN/CREA) 5.6 10-20 L CALCIUM (test code = CA) 8.4 mg/dL 8.5-10.1 L - XR ABDOMEN AP 1 [id number] 11:52:00 FAX: Sammy Mccain MD [place]: B St: ADM Name: [place] [facility] : [birth year] 57 Age/S: 58/M [address] [facility] Unit #: [id number] Loc: [id number] [place] [address] Phys: Sammy Lopez MD Acct: [id number] Dis Date: Status: ADM IN PHONE #: [phone] Exam Date: 08/02/2019 1152 FAX #: [phone] Reason: distention EXAMS: CPT CODE: [id number] XR ABDOMEN AP 1 V 32066 HISTORY: distention TECHNIQUE: AP abdomen x-ray COMPARISON: Abdominal radiographs y esterday. Additional radiographs dating back to July 29, 2019 were reviewed FINDINGS/ IMPRESSION: Diffuse gaseous distention of both the small and large bowel appears unchanged from the prior exam and likely represents small bowel ileus. Remaining findings are unchanged. Location: [facility] Electronical ly Signed by Lico Garcia MD on 08/02/2019 at 1152 Report ed and signed by: Lico Garcia MD CC: Sammy Lopez MD Technologist: RT Tino(R) Trnscrd Date/Time/By: 08/02/2019 (115) : By: [email or web address] 1 Orig Print D/T: S: 08/02/2019 (9621) PAGE 1 Signed Report BASIC METABOLIC [id number] 05:28:00* Test Item Value Reference Range Interpretation Comments SODIUM (test code = NA) 138 mmol/L 136-145 N POTASSIUM (test code = K) 3.3 mmol/L 3.5-5.1 L CHLORIDE (test code = CL) 107.0 mmol/L 98-107 N CARBON DIOXIDE (test code = CO2) 26.0 mmol/L 21-32 N ANION GAP (test code = GAP) 8.3 10-20 L GLUCOSE (test code = GLU) 100 mg/dL 74-106 N BLOOD UREA NITROGEN (test code = BUN) 4 mg/dL 7-18 L GLOMERULAR FILTRATION RATE (test code = GFR) > 60 mL/min >=60 Estimated GFR by using Modified MDRD formula.Chronic kidney disease is defined as either kidney damageor GFR <60 mL/min/1.73 m2 for >3 months. CREATININE (test code = CREAT) 0.90 mg/dL 0.7-1.3 N BUN/CREATININE RATIO (test code = BUN/CREA) 4.4 10-20 L CALCIUM (test code = CA) 8.6 mg/dL 8.5-10.1 N [id number] 05:28:00* Test Item Value Reference Range Interpretation Comments MAGNESIUM (test code = MAG) 2.3 mg/dL 1.8-2.4 N - XR ABDOMEN AP 1 [id number] 10:16:00 FAX: Sammy Mccain MD [place]: St: ADM Name: [place] [facility] : [birth year] 57 Age/S: 58/M [address] [facility] Unit #: [id number] Loc: V.3033 [place] [address] Phys: Sammy Lopez MD Acct: [id number] Dis Date: Status: ADM IN PHONE #: [phone] Exam Date: 08/01/2019 0900 FAX #: [phone] Reason: distention EXAMS: CPT CODE: [id number] XR ABDOMEN AP 1 V 97096 HISTORY: distention TECHNIQUE: AP abdomen x-ray COMPARISON: Abdominal radiographs M 2019 FINDINGS/ IMPRESSION: Extensive gaseo us distention of the small and large bowel appears unchanged from the pr ior exam. Scoliosis and degenerative changes of the lumbar spine are als o unchanged. Location: [facility] at 1016 Reported and sig veronica by: Lico Garcia MD CC: Sammy Lopez MD Technologist: ALEJO WINN, RT(R) Trnscrd Date/Time/By: 08/01/2019 (1016) : By: Rosa Elena.[email or web address] Orig Print D/T: S: 08/01/2019 (7110) PAGE 1 Signed Report BASIC METABOLIC PANEL 2019-08-01 05:49:00* Test Item Value Reference Range Interpretation Comments SODIUM (test code = NA) 139 mmol/L 136-145 N POTASSIUM (test code = K) 3.0 mmol/L 3.5-5.1 L CHLORIDE (test code = CL) 104.0 mmol/L 98-107 N CARBON DIOXIDE (test code = CO2) 26.0 mmol/L 21-32 N ANION GAP (test code = GAP) 12.0 10-20 N GLUCOSE (test code = GLU) 94 mg/dL 74-106 N BLOOD UREA NITROGEN (test code = BUN) 5 mg/dL 7-18 L GLOMERULAR FILTRATION RATE (test code = GFR) > 60 mL/min >=60 Estimated GFR by using Modified MDRD formula.Chronic kidney disease is defined as either kidney damageor GFR <60 mL/min/1.73 m2 for >3 months. CREATININE (test code = CREAT) 0.80 mg/dL 0.7-1.3 N BUN/CREATININE RATIO (test code = BUN/CREA) 6.3 10-20 L CALCIUM (test code = CA) 8.7 mg/dL 8.5-10.1 N BASIC METABOLIC [id number] 05:41:00* Test Item Value Reference Range Interpretation Comments SODIUM (test code = NA) 139 mmol/L 136-145 N POTASSIUM (test code = K) 3.0 mmol/L 3.5-5.1 L CHLORIDE (test code = CL) 104.0 mmol/L 98-107 N CARBON DIOXIDE (test code = CO2) mmol/L 21-32 ANION GAP (test code = GAP) 10-20 GLUCOSE (test code = GLU) mg/dL 74-106 BLOOD UREA NITROGEN (test code = BUN) mg/dL 7-18 GLOMERULAR FILTRATION RATE (test code = GFR) mL/min >=60 CREATININE (test code = CREAT) mg/dL 0.7-1.3 BUN/CREATININE RATIO (test code = BUN/CREA) 10-20 CALCIUM (test code = CA) mg/dL 8.5-10.1 BASIC METABOLIC [id number] 07:33:00* Test Item Value Reference Range Interpretation Comments SODIUM (test code = NA) 140 mmol/L 136-145 N POTASSIUM (test code = K) 3.0 mmol/L 3.5-5.1 L CHLORIDE (test code = CL) 105.0 mmol/L 98-107 N CARBON DIOXIDE (test code = CO2) 29.0 mmol/L 21-32 N ANION GAP (test code = GAP) 9.0 10-20 L GLUCOSE (test code = GLU) 88 mg/dL 74-106 N BLOOD UREA NITROGEN (test code = BUN) 8 mg/dL 7-18 N GLOMERULAR FILTRATION RATE (test code = GFR) > 60 mL/min >=60 Estimated GFR by using Modified MDRD formula.Chronic kidney disease is defined as either kidney damageor GFR <60 mL/min/1.73 m2 for >3 months. CREATININE (test code = CREAT) 0.80 mg/dL 0.7-1.3 N BUN/CREATININE RATIO (test code = BUN/CREA) 10.0 10-20 N CALCIUM (test code = CA) 8.6 mg/dL 8.5-10.1 N CBC W/AUTO [id number] 06:32:00* Test Item Value Reference Range Interpretation Comments WHITE BLOOD CELL (test code = WBC) 9.2 K/mm3 4.5-12.5 N RED BLOOD CELL (test code = RBC) 3.19 mill/mm3 4.0-5.8 L HEMOGLOBIN (test code = HGB) 9.4 gram/dL 13.0-17.5 L HEMATOCRIT (test code = HCT) 27.8 % 42.0-52.0 L MEAN CELL VOLUME (test code = MCV) 87.1 fL 80-98 N MEAN CELL HGB (test code = MCH) 29.5 picogram 27.0-33.0 N MEAN CELL HGB CONCETRATION (test code = MCHC) 33.8 gram/dL 33.0-36. 0 N RED CELL DISTRIBUTION WIDTH (test code = RDW) 14.3 % 11.6-16. 2 N RED CELL DISTRIBUTION WIDTH SD (test code = RDW-SD) 45.5 fL 37 .0-51.0 N PLATELET COUNT (test code = PLT) 417 K/mm3 150-450 N MEAN PLATELET VOLUME (test code = MPV) 9.1 fL 6.7-11.0 N NEUTROPHIL % (test code = NT%) 68.9 % 39.0-69.0 N IMMATURE GRANULOCYTE % (test code = IG%) 1.7 % 0.0-5.0 N LYMPHOCYTE % (test code = LY%) 15.3 % 25.0-55.0 L MONOCYTE % (test code = MO%) 9.2 % 0.0-10.0 N EOSINOPHIL % (test code = EO%) 4.2 % 0.0-5.0 N BASOPHIL % (test code = BA%) 0.7 % 0.0-1.0 N NUCLEATED RBC % (test code = NRBC%) 0.0 % 0-0 N NEUTROPHIL # (test code = NT#) 6.34 K/mm3 1.8-7.7 N IMMATURE GRANULOCYTE # (test code = IG#) 0.16 x10 3/uL 0-0.03 H LYMPHOCYTE # (test code = LY#) 1.41 K/mm3 1.0-5.0 N MONOCYTE # (test code = MO#) 0.85 K/mm3 0-0.8 H EOSINOPHIL # (test code = EO#) 0.39 K/mm3 0.0-0.5 N BASOPHIL # (test code = BA#) 0.06 K/mm3 0.0-0.2 N NUCLEATED RBC # (test code = NRBC#) 0.00 K/mm3 0.0-0.1 N MANUAL DIFF REQUIRED (test code = MDIFF) NO - XR ABDOMEN [id number] 17:29:00 FAX: Farhad Bhakta MD [phone] [place]: St: [facility] FAX: Sammy Mccain MD Name: [place] [facility] : 1960 Age/S: 58/M [address] [facility] Unit #: [id number] Loc: V.3033 [place] [address] Phys: Farhad Peña MD Acct: [id number] Dis Date: Status: ADM IN PHONE #: [phone] Exam Date: 07/30/2019 1710 FAX #: [phone] Reason: ABD DISTENSION EXAMS: CPT CODE: [id number] XR ABDOMEN 2V 44647 EXAM: Abdomen, 5 views; INFORMATION: Abdominal dis tention, combative, hypokalemia; IMPRESSION: No signific ant change compared with studies obtained over the last 2 days: Persiste nt gaseous distention of small bowel loops and colon but without abnorma l dilatation; Persistent ileus. Location code: [facility] at 1729 Reported an d signed by: Christopher Hawley M.D. CC: Farhad Peña MD; Sammy Lopez MD Technologist: Judith Yanes RT(R); CORETTA JAEGER RT(R); ... Trnscrd Date/Time/By: 07/30/2019 (172) : By: Renato NavarreteGRW Orig Print D/T: S: 07/30/2019 (173) PAG E 1 Signed Report BASIC METABOLIC [id number] 05:37:00* Test Item Value Reference Range Interpretation Comments SODIUM (test code = NA) 142 mmol/L 136-145 N POTASSIUM (test code = K) 3.2 mmol/L 3.5-5.1 L CHLORIDE (test code = CL) 105.0 mmol/L 98-107 N CARBON DIOXIDE (test code = CO2) 29.0 mmol/L 21-32 N ANION GAP (test code = GAP) 11.2 10-20 N GLUCOSE (test code = GLU) 94 mg/dL 74-106 N BLOOD UREA NITROGEN (test code = BUN) 8 mg/dL 7-18 N GLOMERULAR FILTRATION RATE (test code = GFR) > 60 mL/min >=60 Estimated GFR by using Modified MDRD formula.Chronic kidney disease is defined as either kidney damageor GFR <60 mL/min/1.73 m2 for >3 months. CREATININE (test code = CREAT) 0.90 mg/dL 0.7-1.3 N BUN/CREATININE RATIO (test code = BUN/CREA) 8.9 10-20 L CALCIUM (test code = CA) 8.7 mg/dL 8.5-10.1 N [id number] 05:37:00* Test Item Value Reference Range Interpretation Comments MAGNESIUM (test code = MAG) 2.7 mg/dL 1.8-2.4 H CBC W/AUTO [id number] 04:46:00* Test Item Value Reference Range Interpretation Comments WHITE BLOOD CELL (test code = WBC) 9.8 K/mm3 4.5-12.5 N RED BLOOD CELL (test code = RBC) 3.28 mill/mm3 4.0-5.8 L HEMOGLOBIN (test code = HGB) 9.5 gram/dL 13.0-17.5 L HEMATOCRIT (test code = HCT) 28.5 % 42.0-52.0 L MEAN CELL VOLUME (test code = MCV) 86.9 fL 80-98 N MEAN CELL HGB (test code = MCH) 29.0 picogram 27.0-33.0 N MEAN CELL HGB CONCETRATION (test code = MCHC) 33.3 gram/dL 33.0-36. 0 N RED CELL DISTRIBUTION WIDTH (test code = RDW) 14.5 % 11.6-16. 2 N RED CELL DISTRIBUTION WIDTH SD (test code = RDW-SD) 45.6 fL 37 .0-51.0 N PLATELET COUNT (test code = PLT) 431 K/mm3 150-450 N MEAN PLATELET VOLUME (test code = MPV) 9.0 fL 6.7-11.0 N NEUTROPHIL % (test code = NT%) 69.2 % 39.0-69.0 H IMMATURE GRANULOCYTE % (test code = IG%) 1.2 % 0.0-5.0 N LYMPHOCYTE % (test code = LY%) 14.5 % 25.0-55.0 L MONOCYTE % (test code = MO%) 9.4 % 0.0-10.0 N EOSINOPHIL % (test code = EO%) 4.9 % 0.0-5.0 N BASOPHIL % (test code = BA%) 0.8 % 0.0-1.0 N NUCLEATED RBC % (test code = NRBC%) 0.0 % 0-0 N NEUTROPHIL # (test code = NT#) 6.76 K/mm3 1.8-7.7 N IMMATURE GRANULOCYTE # (test code = IG#) 0.12 x10 3/uL 0-0.03 H LYMPHOCYTE # (test code = LY#) 1.42 K/mm3 1.0-5.0 N MONOCYTE # (test code = MO#) 0.92 K/mm3 0-0.8 H EOSINOPHIL # (test code = EO#) 0.48 K/mm3 0.0-0.5 N BASOPHIL # (test code = BA#) 0.08 K/mm3 0.0-0.2 N NUCLEATED RBC # (test code = NRBC#) 0.00 K/mm3 0.0-0.1 N MANUAL DIFF REQUIRED (test code = MDIFF) NO BASIC METABOLIC [id number] 19:46:00* Test Item Value Reference Range Interpretation Comments SODIUM (test code = NA) 145 mmol/L 136-145 N POTASSIUM (test code = K) 3.8 mmol/L 3.5-5.1 N CHLORIDE (test code = CL) 109.0 mmol/L 98-107 H CARBON DIOXIDE (test code = CO2) 24.0 mmol/L 21-32 N ANION GAP (test code = GAP) 15.8 10-20 N GLUCOSE (test code = GLU) 93 mg/dL 74-106 N BLOOD UREA NITROGEN (test code = BUN) 9 mg/dL 7-18 N GLOMERULAR FILTRATION RATE (test code = GFR) > 60 mL/min >=60 Estimated GFR by using Modified MDRD formula.Chronic kidney disease is defined as either kidney damageor GFR <60 mL/min/1.73 m2 for >3 months. CREATININE (test code = CREAT) 1.00 mg/dL 0.7-1.3 N BUN/CREATININE RATIO (test code = BUN/CREA) 9.0 10-20 L CALCIUM (test code = CA) 8.4 mg/dL 8.5-10.1 L BASIC METABOLIC [id number] 19:42:00* Test Item Value Reference Range Interpretation Comments SODIUM (test code = NA) 145 mmol/L 136-145 N POTASSIUM (test code = K) 3.8 mmol/L 3.5-5.1 N CHLORIDE (test code = CL) 109.0 mmol/L 98-107 H CARBON DIOXIDE (test code = CO2) mmol/L 21-32 ANION GAP (test code = GAP) 10-20 GLUCOSE (test code = GLU) mg/dL 74-106 BLOOD UREA NITROGEN (test code = BUN) mg/dL 7-18 GLOMERULAR FILTRATION RATE (test code = GFR) mL/min >=60 CREATININE (test code = CREAT) mg/dL 0.7-1.3 BUN/CREATININE RATIO (test code = BUN/CREA) 10-20 CALCIUM (test code = CA) mg/dL 8.5-10.1 [id number] 14:09:00* Test Item Value Reference Range Interpretation Comments POTASSIUM (test code = K) 3.2 mmol/L 3.5-5.1 L - XR ABDOMEN [id number] 13:28:00 FAX: Farhad Bhakta MD [phone] [place]: St: ADM FAX: Sammy Mccain MD Name: [place] [facility] : 1960 Age/S: 58/M [address] [facility] Unit #: [id number] Loc: [facility] [place] [address] Phys: Farhad Peña MD Acct: [id number] Dis Date: Status: ADM IN PHONE #: [phone] Exam Date: 07/29/2019 1250 FAX #: [phone] Reason: ABD DISTENSION EXAMS: CPT CODE: [id number] XR ABDOMEN 2V 68559 EXAM: Abdomen, 5 views; INFORMATION: Abdominal dis tention; UTI, hypokalemia; IMPRESSION: No significant ch zulema compared with yesterday's study; persistent gaseous distention and mild dilatation of colon and small bowel loops consistent with ileus; ob struction is unlikely. Location code: [facility] Electronically Signed by Brandon Hawley on at 1328 Reported and signed by: Ned Hawley M.D. CC: Farhad Peña MD; Alvarado Lopez MD Technologist: Judith CHACKO(R); Carol Aquino(R) Trnscrd Date/Time/By: 07/29/2019 (8743) : By: Ying Orig Print D/T: S: 07/29/2019 (9049) PAGE 1 Signed Report [id number] 13:15:00* Test Item Value Reference Range Interpretation Comments GLUBED (test code = GLUBED) 96 mg/dL 74-106 N Performed by certified sleeve presser operator at [facility] BASIC METABOLIC [id number] 05:06:00* Test Item Value Reference Range Interpretation Comments SODIUM (test code = NA) 145 mmol/L 136-145 RESU LT VERIFIED BY REPEAT ANALYSIS POTASSIUM (test code = K) 3.3 mmol/L 3.5-5.1 L CHLORIDE (test code = CL) 108.0 mmol/L 98-107 H CARBON DIOXIDE (test code = CO2) 30.0 mmol/L 21-32 N ANION GAP (test code = GAP) 10.3 10-20 N GLUCOSE (test code = GLU) 110 mg/dL 74-106 H BLOOD UREA NITROGEN (test code = BUN) 8 mg/dL 7-18 N GLOMERULAR FILTRATION RATE (test code = GFR) > 60 mL/min >=60 Estimated GFR by using Modified MDRD formula.Chronic kidney disease is defined as either kidney damageor GFR <60 mL/min/1.73 m2 for >3 months. CREATININE (test code = CREAT) 0.90 mg/dL 0.7-1.3 N BUN/CREATININE RATIO (test code = BUN/CREA) 8.9 10-20 L CALCIUM (test code = CA) 8.7 mg/dL 8.5-10.1 N BASIC METABOLIC [id number] 21:56:00* Test Item Value Reference Range Interpretation Comments SODIUM (test code = NA) 139 mmol/L 136-145 N POTASSIUM (test code = K) 3.1 mmol/L 3.5-5.1 L CHLORIDE (test code = CL) 105.0 mmol/L 98-107 N CARBON DIOXIDE (test code = CO2) 26.0 mmol/L 21-32 N ANION GAP (test code = GAP) 11.1 10-20 N GLUCOSE (test code = GLU) 124 mg/dL 74-106 H BLOOD UREA NITROGEN (test code = BUN) 7 mg/dL 7-18 N GLOMERULAR FILTRATION RATE (test code = GFR) > 60 mL/min >=60 Estimated GFR by using Modified MDRD formula.Chronic kidney disease is defined as either kidney damageor GFR <60 mL/min/1.73 m2 for >3 months. CREATININE (test code = CREAT) 0.80 mg/dL 0.7-1.3 N BUN/CREATININE RATIO (test code = BUN/CREA) 8.8 10-20 L CALCIUM (test code = CA) 8.7 mg/dL 8.5-10.1 N [id number] 21:56:00* Test Item Value Reference Range Interpretation Comments MAGNESIUM (test code = MAG) 2.3 mg/dL 1.8-2.4 N BASIC METABOLIC [id number] 21:55:00* Test Item Value Reference Range Interpretation Comments SODIUM (test code = NA) 139 mmol/L 136-145 N POTASSIUM (test code = K) 3.1 mmol/L 3.5-5.1 L CHLORIDE (test code = CL) 105.0 mmol/L 98-107 N CARBON DIOXIDE (test code = CO2) mmol/L 21-32 ANION GAP (test code = GAP) 10-20 GLUCOSE (test code = GLU) mg/dL 74-106 BLOOD UREA NITROGEN (test code = BUN) mg/dL 7-18 GLOMERULAR FILTRATION RATE (test code = GFR) mL/min >=60 CREATININE (test code = CREAT) mg/dL 0.7-1.3 BUN/CREATININE RATIO (test code = BUN/CREA) 10-20 CALCIUM (test code = CA) mg/dL 8.5-10.1 [id number] 21:55:00* Test Item Value Reference Range Interpretation Comments MAGNESIUM (test code = MAG) mg/dL 1.8-2.4 - XR ABDOMEN AP 1 [id number] 10:04:00 FAX: Farhad Bhakta MD [phone] [place]: B : [facility] FAX: Sammy Mccain MD Name: [place] [facility] : 1960 Age/S: 58/M [address] Unit #: [id number] Loc: V.3033 [place] [address] Phys: Farhad Peña MD Acct: [id number] Dis Date: Status: ADM IN PHONE #: [phone] Exam Date: 07/28/2019924 FAX #: [phone] Reason: ABDOMINAL DISTENTION Report Has Been Amended EXAMS: CPT CODE: [id number] XR ABDOMEN AP 1 V 96589 Addendum - 07/28/2019 SIGNED 07/28/2019 ADD ENDUM: [id number] Enteric suction tube terminates in the stoma ch. at 1004 Reported and signed by: Lico Garcia MD Transcribed: 07/28/2019 (5698) [email or web address] Report HISTORY: ABDOMIN AL DISTENTION TECHNIQUE: AP abdomen x-ray COMPARISO N: Abdominal radiographs July 27, 2019 FINDINGS/ IMPRESS ION: Diffuse gaseous distention of both the small and large bowel appear grossly unchanged from the prior examination and likely rep resent ileus. Location: [facility] at 0938 Reported and signed by: Lico Garcia MD CC: Farhad Peña MD; Sammy Lopez MD Technologist: ALYSSA CRENSHAW, (R); Brinda Retana (R) [facility] Date/Time/By: 07/28/2019 (0938) : By: [email or web address] Orig Print D/T: S: 07/28/2019 (5466) PAGE 1 Signed Report - XR ABDOMEN AP 1 [id number] 09:38:00 FAX: Farhad Bhakta MD [phone] [place]: St: ADM FAX: Sammy Mccain MD Name: [place] [facility] : 1960 Age/S: 58/M [address] Unit #: [id number] Loc: V.3033 [place] [address] Phys: Farhad Peña MD Acct: [id number] Dis Date: Status: ADM IN PHONE #: [phone] Exam Date: 07/28/2019924 FAX #: [phone] Reason: ABDOMINAL DISTENTION EXAMS: CPT CODE: [id number] XR ABDOMEN AP 1 V 71695 HISTORY: ABDOMINAL DISTENTION TECHNIQUE: AP abdomen x-ray COMPARISON: Abdominal radiographs July 27, 2019 FINDINGS/ IMPRESSION: Diffuse gaseous distention of both the small and large bowel appear grossly unchanged from the prior examination and likely represent ileus. Location: [facility] at 0938 Reported and signed by: Lico Garcia MD CC: Farhad Peña MD; Sammy Lopez MD Technologist: RT ERIC(R); Brinda Retana(R) Trnscrd Date/Time/By: 0 07/28/2019 (0938) : By: [email or web address] Orig Print D/T: S: 07/28/2019 (5843) PAGE 1 Signed Report BASIC METABOLIC [id number] 06:41:00* Test Item Value Reference Range Interpretation Comments SODIUM (test code = NA) 139 mmol/L 136-145 N POTASSIUM (test code = K) 3.0 mmol/L 3.5-5.1 L CHLORIDE (test code = CL) 106.0 mmol/L 98-107 N CARBON DIOXIDE (test code = CO2) 25.0 mmol/L 21-32 N ANION GAP (test code = GAP) 11.0 10-20 N GLUCOSE (test code = GLU) 102 mg/dL 74-106 N BLOOD UREA NITROGEN (test code = BUN) 7 mg/dL 7-18 N GLOMERULAR FILTRATION RATE (test code = GFR) > 60 mL/min >=60 Estimated GFR by using Modified MDRD formula.Chronic kidney disease is defined as either kidney damageor GFR <60 mL/min/1.73 m2 for >3 months. CREATININE (test code = CREAT) 0.90 mg/dL 0.7-1.3 N BUN/CREATININE RATIO (test code = BUN/CREA) 7.8 10-20 L CALCIUM (test code = CA) 8.6 mg/dL 8.5-10.1 N [id number] 06:41:00* Test Item Value Reference Range Interpretation Comments MAGNESIUM (test code = MAG) 2.0 mg/dL 1.8-2.4 N THYROID STIMULATING [id number] 06:41:00* Test Item Value Reference Range Interpretation Comments THYROID STIMULATING HORMONE (test code = TSH) 1.300 uIU/mL 0.36-3.7 4 N TSH REFERENCE RANGES: EUTHYROID: 0.35 - 4.3 mIU/mL HYPO : > 5.5 mIU/mL HYPER : < 0.35 mIU/mL BASIC METABOLIC [id number] 06:33:00* Test Item Value Reference Range Interpretation Comments SODIUM (test code = NA) 139 mmol/L 136-145 N POTASSIUM (test code = K) 3.0 mmol/L 3.5-5.1 L CHLORIDE (test code = CL) 106.0 mmol/L 98-107 N CARBON DIOXIDE (test code = CO2) mmol/L 21-32 ANION GAP (test code = GAP) 10-20 GLUCOSE (test code = GLU) mg/dL 74-106 BLOOD UREA NITROGEN (test code = BUN) mg/dL 7-18 GLOMERULAR FILTRATION RATE (test code = GFR) mL/min >=60 CREATININE (test code = CREAT) mg/dL 0.7-1.3 BUN/CREATININE RATIO (test code = BUN/CREA) 10-20 CALCIUM (test code = CA) mg/dL 8.5-10.1 [id number] 06:33:00* Test Item Value Reference Range Interpretation Comments MAGNESIUM (test code = MAG) mg/dL 1.8-2.4 THYROID STIMULATING [id number] 06:33:00* Test Item Value Reference Range Interpretation Comments THYROID STIMULATING HORMONE (test code = TSH) uIU/mL 0.36-3.7 4 PROTHROMBIN [id number] 06:00:00* Test Item Value Reference Range Interpretation Comments PROTHROMBIN TIME PATIENT (test code = PTP) 14.8 seconds 9.0-14.0 H INTERNATIONAL NORMAL RATIO (test code = INR) 1.3 0.8-1.2 H The therapeutic range for oral anticoagulant therapy formost indications is an international normalized ratio (INR)of between 2.0 and 3.0. The recommended therapeutic INRrange for various clinical situations is listed below: Clinical Situation INR range Pulmonary e mbolism treatment (2.0-3.0)Venous thrombosis treatmentVenous thrombosis prophylaxis (high risk surgery)Prevention of systemic embolism from: Acute myocardial infarction Valvular heart disease Atrial fibrillation Mechanical prosthetic heart valves (2.5-3.5) IS PATIENT ON ANTICOAGULANTS? NTHROMBOPLASTIN TIME [id number] 06:00:00* Test Item Value Reference Range Interpretation Comments THROMBOPLASTIN TIME PARTIAL (test code = PTT) 34.6 seconds 23.0-37. 0 N IS PATIENT ON ANTICOAGULANTS? [id number] 05:57:00* Test Item Value Reference Range Interpretation Comments GLYCOSYLATED HEMOGLOBIN (HA1C) (test code = GLYHGB) 5.4 % HbA1 SUGGESTED DIAGNOSIS: HbA1C (%) Diabetic >6.4Prediabetes 5.7 - 6.4Normal <5.7 ESTIMATED AVERAGE GLUCOSE (test code = EAG) 108 MG/DL CBC W/AUTO [id number] 05:46:00* Test Item Value Reference Range Interpretation Comments WHITE BLOOD CELL (test code = WBC) 8.8 K/mm3 4.5-12.5 N RED BLOOD CELL (test code = RBC) 3.51 mill/mm3 4.0-5.8 L HEMOGLOBIN (test code = HGB) 10.2 gram/dL 13.0-17.5 L HEMATOCRIT (test code = HCT) 29.5 % 42.0-52.0 L MEAN CELL VOLUME (test code = MCV) 84.0 fL 80-98 N MEAN CELL HGB (test code = MCH) 29.1 picogram 27.0-33.0 N MEAN CELL HGB CONCETRATION (test code = MCHC) 34.6 gram/dL 33.0-36. 0 N RED CELL DISTRIBUTION WIDTH (test code = RDW) 14.4 % 11.6-16. 2 N RED CELL DISTRIBUTION WIDTH SD (test code = RDW-SD) 43.5 fL 37 .0-51.0 N PLATELET COUNT (test code = PLT) 442 K/mm3 150-450 N MEAN PLATELET VOLUME (test code = MPV) 9.4 fL 6.7-11.0 N NEUTROPHIL % (test code = NT%) 68.3 % 39.0-69.0 N IMMATURE GRANULOCYTE % (test code = IG%) 1.5 % 0.0-5.0 N LYMPHOCYTE % (test code = LY%) 12.5 % 25.0-55.0 L MONOCYTE % (test code = MO%) 9.3 % 0.0-10.0 N EOSINOPHIL % (test code = EO%) 7.5 % 0.0-5.0 H BASOPHIL % (test code = BA%) 0.9 % 0.0-1.0 N NUCLEATED RBC % (test code = NRBC%) 0.0 % 0-0 N NEUTROPHIL # (test code = NT#) 5.99 K/mm3 1.8-7.7 N IMMATURE GRANULOCYTE # (test code = IG#) 0.13 x10 3/uL 0-0.03 H LYMPHOCYTE # (test code = LY#) 1.10 K/mm3 1.0-5.0 N MONOCYTE # (test code = MO#) 0.82 K/mm3 0-0.8 H EOSINOPHIL # (test code = EO#) 0.66 K/mm3 0.0-0.5 H BASOPHIL # (test code = BA#) 0.08 K/mm3 0.0-0.2 N NUCLEATED RBC # (test code = NRBC#) 0.00 K/mm3 0.0-0.1 N [id number] 04:02:00* Test Item Value Reference Range Interpretation Comments POTASSIUM (test code = K) 3.1 mmol/L 3.5-5.1 L [id number] 04:02:00* Test Item Value Reference Range Interpretation Comments MAGNESIUM (test code = MAG) 1.9 mg/dL 1.8-2.4 N [id number] 04:02:00* Test Item Value Reference Range Interpretation Comments AMYLASE (test code = DERIC) 12 Unit/L 25-115 L [id number] 04:02:00* Test Item Value Reference Range Interpretation Comments LIPASE (test code = LIP) 78 U/L 73.0-393.0 N - XR CHEST 1 [id number] 02:13:00 FAX: Farhad Bhakta MD [phone] [place]: [facility]: [facility] FAX: Sammy Mccain MD Name: [place] [facility] : 1960 Age/S: 58/M [address] [facility] Unit #: [id number] Loc: [id number].30[address] [place] [address] Phys: Farhad Peña MD Acct: [id number] Dis Date: Status: ADM IN PHONE #: [phone] Exam Date: 07/28/2019 0153 FAX #: [phone] Reason: NG TUBE PLACEMENT EXAMS: CPT CODE: [id number] XR CHEST 1 V 24243 AFTER HOURS SERVICE ON: 07/28/2019 2:12 AM AP Portable Chest Location Code M12 HISTORY: NG TUBE PLACEMENT FINDINGS: There are no infiltrates. There are no pleural effusions. There is no pneumothorax. Cardiac silhouette and mediastinum appear within normal limits. Study is limited by shallow inspiration. Sternotomy wires are in place. There is an NG tube in stomach. Distended loops of bowel are seen in the upper abdomen without significant change in appearance from the abdomen x-ray of 06/30/2019. IMPRE SSION: NG tube in the stomach. Electronica lly Signed by Michelle Reese M.D. on 07/28/2019 at 0213 Reported and signed by: Michelle Reese M.D. CC: Farhad Peña MD; Sammy Lopez MD Technologist: Landy Mcguire Trnnahunrd Date/Time/By: 07/28/2019 (212) : By: [email or web address] Orig Print D /T: S: 07/28/2019 (215) PAGE 1 S igned Report - CT ABD PELVIS W/O [id number] 20:02:00 Name: [place] [facility] : 1960 Age/S: 58 / M [address] [facility] Unit #: [id number] Loc: [place] [address] Phys: Sammy Lopez MD Acct: [id number] Dis Date: Status: ADM IN PHONE #: [phone] Exam Date: 07/27/2019 1950 FAX #: [phone] Reason: abd distention EXAMS: CPT CODE: [id number] CT ABD PELVIS W/O CONT 99083 REASON FOR EXAM: abd distention EXAM ORDER DATE: 07/27/2019 7:05 PM Ordering: Sammy Lopez MD Attending:Sammy Lopez MD Location:[facility] PROCEDURE: - CT ABD PELVIS W/O CONT COMPARISON: FINDINGS: CT images of the abdomen and pelvis were obtained without IV and without oral contrast at 5mm. Dose modulation, iterative reconstruction, and/or weight based adjustment of the MA/KV was utilized to reduce the radiation dose to as low as reasonably achievable. The liver, spleen, pancreas are grossly within normal limits. The gall bladder is unremarkable by CT. The kidneys are within normal limits. The urinary bladder is unremarkable. The appendix was not seen No evidence of free air or free fluid. IMPRESSION: Severe diffuse catheter distention of the colon and small bowel suggestive of ileus. No evidence of transition zone to suggest mechanical obstruction. Very small right pleural effusion at 2002 Reported and signed by: Prince Eddy M.D. CC: Sammy Lopez MD Technologist:Shahnaz Cherry RT(R) CTDI: DLP: Trnscb Date/Time: 07/27/2019 (2001) t.[email or web address].VTL Orig Print D/T: S: 07/27/2019 (2004) PAGE 1 Signed Report - XR ABDOMEN AP 1 [id number] 12:44:00 FAX: Sammy Mccain MD [place]: St: ADM Name: [place] [facility] : [birth year] 57 Age/S: 58/M [facility] Unit #: [id number] Loc: [address] [address] Phys: Sammy Lopez MD Acct: [id number] Dis Date: Status: ADM IN PHONE #: [phone] Exam Date: 07/27/2019 1211 FAX #: [phone] Reason: abd distention EXAMS: CPT CODE: [id number] XR ABDOMEN AP 1 V [id number] HISTORY: abd distention TECHNIQUE: AP abdomen x-ray COMPARISON: None FINDINGS: There is severe gaseous distention of both the small and large bowel. No intra-abdominal mass effect. No abnorma l calcifications are observed. There is levoscoliosis and degener ative changes of the lumbar spine. Visualized thorax is within n ormal limits. IMPRESSION: Severe gaseous dis tention of the small and large bowel may represent ileus. Location: [facility] Electronically Signed by Lico Garcia MD on 020 at 1244 Reported and signed by: Lico Garcia MD CC: Sammy Lopez MD Technolog ist: ALYSSA CRENSHAW, RT(R) Trnscrd Date/Time/By : 07/27/2019 (1244) : By: [email or web address] Orig Print D/T: S: 07/27/2019 (124 8) PAGE 1 Signed Report [id number] 10:41:00* Test Item Value Reference Range Interpretation Comments MAGNESIUM (test code = MAG) 1.7 mg/dL 1.8-2.4 L SPECIMEN COMMENTS: ADDCOMMENTS TO CHROMIUM PLATER: ADDBASIC METABOLIC PANEL 2019-07-27 07:57:00* Test Item Value Reference Range Interpretation Comments SODIUM (test code = NA) 141 mmol/L 136-145 N POTASSIUM (test code = K) 2.6 mmol/L 3.5-5.1 LL Re sults called to [id number] by [facility].KP3 07/27/19 0757Critical results verified and read back by Nurse? YES CHLORIDE (test code = CL) 105.0 mmol/L 98-107 N CARBON DIOXIDE (test code = CO2) 28.0 mmol/L 21-32 N ANION GAP (test code = GAP) 10.6 10-20 N GLUCOSE (test code = GLU) 111 mg/dL 74-106 H BLOOD UREA NITROGEN (test code = BUN) 6 mg/dL 7-18 L GLOMERULAR FILTRATION RATE (test code = GFR) > 60 mL/min >=60 Estimated GFR by using Modified MDRD formula.Chronic kidney disease is defined as either kidney damageor GFR <60 mL/min/1.73 m2 for >3 months. CREATININE (test code = CREAT) 1.00 mg/dL 0.7-1.3 N BUN/CREATININE RATIO (test code = BUN/CREA) 6.0 10-20 L CALCIUM (test code = CA) 8.7 mg/dL 8.5-10.1 N URINALYSIS [id number] 05:49:00* Test Item Value Reference Range Interpretation Comments UA COLOR (test code = COLU) Light-Yellow YELLOW UA APPEARANCE (test code = APPU) CLEAR CLEAR UA GLUCOSE DIPSTICK (test code = DGLUU) NEGATIVE mg/dL NEGATIVE UA BILIRUBIN DIPSTICK (test code = BILU) NEGATIVE mg/dL NEGATIVE UA KETONE DIPSTICK (test code = KETU) 10 (1+) mg/dL NEGATIVE A UA SPECIFIC GRAVITY (test code = SGU) 1.009 1.001-1.035 UA BLOOD DIPSTICK (test code = ARGENTINA) Negative mg/dL NEGATIVE UA PH DIPSTICK (test code = LEON) 5.5 5.0-8.0 UA PROTEIN DIPSTICK (test code = PROU) NEGATIVE mg/dL NEGATIVE UA UROBILINIOGEN DIPSTICK (test code = URO) Normal mg/dL NEGATIVE UA NITRITE DIPSTICK (test code = DOROTHY) POSITIVE NEGATIVE A UA LEUKOCYTE ESTERASE W REFLEX (test code = LEUUR) 75 Keeley/uL (1+) Keeley/uL NEGATIVE A UA WBC (test code = WBCU) 11-20 per HPF 0-5 A UA RBC (test code = RBCU) 0-2 #/HPF 0-5 UA EPITHELIAL CELLS (test code = EPIU) FEW per HPF FEW UA BACTERIA (test code = BACU) MANY #/HPF NONE A UA MUCUS (test code = MUCU) FEW #/LPF FEW Urine Source? Clean CatchDRUGS OF ABUSE SCREEN [id number] 05:49:00* Test Item Value Reference Range Interpretation Comments URN COCAINE (test code = COCAURN) NEGATIVE <300 ng/mL URN CANNABINOIDS (test code = CANNABURN) NEGATIVE <50 ng/mL URN AMPHETAMINE (test code = AMPHETURN) NEGATIVE <1000 ng/mL URN BARBITURATE (test code = BARBITURN) NEGATIVE <200 ng/mL URN BENZODIAZEPINE (test code = BENZOURN) POSITIVE <200 ng/mL A This test provides only a preliminary test result. A morespecific alternate chemical method must be used in order toobtain a confirmed analytical result. Gas chromatography/mass spectrometry (GC/MS) is thepreferred confirmatory method. Other chemical confirmationmethods are available. Clinical consideration and professional judgment should be applied to any drug of abusetest result, particularly when preliminary positive resultsare used.Unconfirmed screening results must not be used fornon-medical purposes (e.g., employment testing, legaltesting). URN OPIATES (test code = OPIATURN) NEGATIVE <300 ng/mL URN PHENCYCLIDINE (PCP) (test code = PHENCURN) NEGATIVE <25 ng/ mL URN METHADONE (test code = METHAURN) NEGATIVE <300 ng/mL Urine Source? Clean CatchURINALYSIS [id number] 05:31:00* Test Item Value Reference Range Interpretation Comments UA COLOR (test code = COLU) Light-Yellow YELLOW UA APPEARANCE (test code = APPU) CLEAR CLEAR UA GLUCOSE DIPSTICK (test code = DGLUU) NEGATIVE mg/dL NEGATIVE UA BILIRUBIN DIPSTICK (test code = BILU) NEGATIVE mg/dL NEGATIVE UA KETONE DIPSTICK (test code = KETU) 10 (1+) mg/dL NEGATIVE A UA SPECIFIC GRAVITY (test code = SGU) 1.009 1.001-1.035 UA BLOOD DIPSTICK (test code = ARGENTINA) Negative mg/dL NEGATIVE UA PH DIPSTICK (test code = LEON) 5.5 5.0-8.0 UA PROTEIN DIPSTICK (test code = PROU) NEGATIVE mg/dL NEGATIVE UA UROBILINIOGEN DIPSTICK (test code = URO) Normal mg/dL NEGATIVE UA NITRITE DIPSTICK (test code = DOROTHY) POSITIVE NEGATIVE A UA LEUKOCYTE ESTERASE W REFLEX (test code = LEUUR) 75 Keeley/uL (1+) Keeley/uL NEGATIVE A UA WBC (test code = WBCU) 11-20 per HPF 0-5 A UA RBC (test code = RBCU) 0-2 #/HPF 0-5 UA EPITHELIAL CELLS (test code = EPIU) FEW per HPF FEW UA BACTERIA (test code = BACU) MANY #/HPF NONE A UA MUCUS (test code = MUCU) FEW #/LPF FEW Urine Source? Clean CatchDRUGS OF ABUSE SCREEN [id number] 05:31:00* Test Item Value Reference Range Interpretation Comments URN COCAINE (test code = COCAURN) <300 ng/mL URN CANNABINOIDS (test code = CANNABURN) <50 ng/mL URN AMPHETAMINE (test code = AMPHETURN) <1000 ng/mL URN BARBITURATE (test code = BARBITURN) <200 ng/mL URN BENZODIAZEPINE (test code = BENZOURN) <200 ng/mL URN OPIATES (test code = OPIATURN) <300 ng/mL URN PHENCYCLIDINE (PCP) (test code = PHENCURN) <25 ng/ mL URN METHADONE (test code = METHAURN) <300 ng/mL Urine Source? Clean CatchURINALYSIS [id number] 05:27:00* Test Item Value Reference Range Interpretation Comments UA COLOR (test code = COLU) Light-Yellow YELLOW UA APPEARANCE (test code = APPU) CLEAR CLEAR UA GLUCOSE DIPSTICK (test code = DGLUU) NEGATIVE mg/dL NEGATIVE UA BILIRUBIN DIPSTICK (test code = BILU) NEGATIVE mg/dL NEGATIVE UA KETONE DIPSTICK (test code = KETU) 10 (1+) mg/dL NEGATIVE A UA SPECIFIC GRAVITY (test code = SGU) 1.009 1.001-1.035 UA BLOOD DIPSTICK (test code = ARGENTINA) Negative mg/dL NEGATIVE UA PH DIPSTICK (test code = LEON) 5.5 5.0-8.0 UA PROTEIN DIPSTICK (test code = PROU) NEGATIVE mg/dL NEGATIVE UA UROBILINIOGEN DIPSTICK (test code = URO) Normal mg/dL NEGATIVE UA NITRITE DIPSTICK (test code = DOROTHY) POSITIVE NEGATIVE A UA LEUKOCYTE ESTERASE W REFLEX (test code = LEUUR) 75 Keeley/uL (1+) Keeley/uL NEGATIVE A UA WBC (test code = WBCU) per HPF 0-5 UA RBC (test code = RBCU) per HPF 0-5 UA EPITHELIAL CELLS (test code = EPIU) per HPF Few UA BACTERIA (test code = BACU) per HPF NONE Urine Source? Clean CatchDRUGS OF ABUSE SCREEN [id number] 05:27:00* Test Item Value Reference Range Interpretation Comments URN COCAINE (test code = COCAURN) <300 ng/mL URN CANNABINOIDS (test code = CANNABURN) <50 ng/mL URN AMPHETAMINE (test code = AMPHETURN) <1000 ng/mL URN BARBITURATE (test code = BARBITURN) <200 ng/mL URN BENZODIAZEPINE (test code = BENZOURN) <200 ng/mL URN OPIATES (test code = OPIATURN) <300 ng/mL URN PHENCYCLIDINE (PCP) (test code = PHENCURN) <25 ng/ mL URN METHADONE (test code = METHAURN) <300 ng/mL Urine Source? Clean CatchBASIC METABOLIC [id number] 00:01:00* Test Item Value Reference Range Interpretation Comments SODIUM (test code = NA) 141 mmol/L 136-145 N POTASSIUM (test code = K) 2.6 mmol/L 3.5-5.1 Re sults called to [id number] by [email or web address] 07/27/19 0000Critical results verified and read back by Nurse? Y CHLORIDE (test code = CL) 105.0 mmol/L 98-107 N CARBON DIOXIDE (test code = CO2) 24.0 mmol/L 21-32 N ANION GAP (test code = GAP) 14.6 10-20 N GLUCOSE (test code = GLU) 88 mg/dL 74-106 N BLOOD UREA NITROGEN (test code = BUN) 7 mg/dL 7-18 N GLOMERULAR FILTRATION RATE (test code = GFR) > 60 mL/min >=60 Estimated GFR by using Modified MDRD formula.Chronic kidney disease is defined as either kidney damageor GFR <60 mL/min/1.73 m2 for >3 months. CREATININE (test code = CREAT) 0.90 mg/dL 0.7-1.3 N BUN/CREATININE RATIO (test code = BUN/CREA) 7.8 10-20 L CALCIUM (test code = CA) 9.0 mg/dL 8.5-10.1 N HEPATIC FUNCTION [id number] 00:01:00* Test Item Value Reference Range Interpretation Comments TOTAL PROTEIN (test code = PROT) 7.8 gram/dL 6.4-8.2 N ALBUMIN (test code = ALB) 3.1 g/dL 3.4-5.0 L GLOBULIN (test code = GLOB) 4.7 gram/dL 2.7-4.2 H ALBUMIN/GLOBULIN RATIO (test code = A/G) 0.7 0.75-1.50 L BILIRUBIN TOTAL (test code = BILT) 0.40 mg/dL 0.0-1.0 N BILIRUBIN DIRECT (test code = BILD) 0.14 mg/dL 0.0-0.20 N SGOT/AST (test code = AST) 23 IUnit/L 15-37 N SGPT/ALT (test code = ALT) 14 IUnit/L 12-78 N ALKALINE PHOSPHATASE TOTAL (test code = ALKP) 106 IUnit/L 45-117 N Note change in reference range due to change in reagent. [id number] 00:01:00* Test Item Value Reference Range Interpretation Comments ALCOHOL (test code = ALC) < 3 mg/dL 0.0-3.0 N -- INTERPRETIVE DATA NOTE: POSITIVE SCREENING RESULTS SHOULD BE CONSIDERED PRESUMPTIVE.WHEN COLLECTED FOR MEDICAL PURPOSES ONLY. SPECIMEN WILL NOTBE COLLECTED BY CHAIN OF CUSTODY.IF A CONFIRMATION OF POSITIVE RESULTS IS DESIRED, ACONFIRMATION TEST MUST BE REQUESTED BY THE PHYSICIAN AT ANADDITIONAL CHARGE TO THE PATIENT. CBC W/O [id number] 23:26:00* Test Item Value Reference Range Interpretation Comments WHITE BLOOD CELL (test code = WBC) 7.4 K/mm3 4.5-12.5 N RED BLOOD CELL (test code = RBC) 3.74 mill/mm3 4.0-5.8 L HEMOGLOBIN (test code = HGB) 10.8 gram/dL 13.0-17.5 L HEMATOCRIT (test code = HCT) 31.7 % 42.0-52.0 L MEAN CELL VOLUME (test code = MCV) 84.8 fL 80-98 N MEAN CELL HGB (test code = MCH) 28.9 picogram 27.0-33.0 N MEAN CELL HGB CONCETRATION (test code = MCHC) 34.1 gram/dL 33.0-36. 0 N RED CELL DISTRIBUTION WIDTH (test code = RDW) 14.0 % 11.6-16. 2 N PLATELET COUNT (test code = PLT) 412 K/mm3 150-450 N MEAN PLATELET VOLUME (test code = MPV) 9.0 fL 6.7-11.0 N RAD, ABDOMEN/KUB, 1 VIEW [id number] 07:48:00Reason for exam:->ileusFINAL REPORT Abdomen , one view History: Ileus Comparison: 07/10/2019 Findings:Persistent dilated loops of predominantly large bowel throu ghout the abdomen and pelvis, without significant change from previous study. N o definite free air, although assessment is limited by supine patient positionin g. No definite bowel pneumatosis or portal venous gas. No calcifications along the expected course of the urinary tract. Impression:No significant interval ch zulema. Signed: [place] Verified Date/Time: 07/11/2019 07:48:35 Reading Location: [facility] Diagnostic Imaging Reading Room - [place] [address]9 Elec tronically signed by: PARRISH MEADOWS MD on 07/11/2019 07:48 AM XR abdomen / KUB 1 [id number] 07:48:00Interface, External Ris In - 07/11/2019 7:50 AM CDTFINAL REPORT Abdomen , one view History: Ileus Comparison: 07/10/2019 Findings:Persistent dilated loops of predominantly large bowel throughout the abdomen and pelvis, without significant change from previous study. No definite free air, although assessment is limited by supine patient positioning. No definite bowel pneumatosis or portal venous gas. No calcifications along the expected course of the urinary tract. Impression:No significant interval change. Signed: [place] Verified Date/Time: 07/11/2019 07:48:35 Reading Location: [facility] Diagnostic Imaging Reading Room - [place] [address] [facility] 2019-07-11 05:47:00* Test Item Value Reference Range Interpretation Comments Sodium (test code = 2951-2) 135 meq/L 136-145 L Potassium (test code = 2823-3) 3.8 meq/L 3.5-5.1 Chloride (test code = 2075-0) 104 meq/L 98-107 CO2 (test code = 2027-9) 26 meq/L 22-29 BUN (test code = 3094-0) 6 mg/dL 7-21 L Creatinine (test code = 2160-0) 1.01 mg/dL 0.57-1.25 Glucose (test code = 2345-7) 87 mg/dL 70-105 Calcium (test code = 54981-1) 8.4 mg/dL 8.4-10.2 EGFR (test code = 15884-4) 75 mL/min/1.73 sq m ESTIMATED GFR IS NOT ACCURATE CREATININE CLEARANCE IN PREDICTING GLOMERULAR FILTRATION RATE. ESTIMATED GFR IS NOT APPLICABLE FOR DIALYSIS PATIENTS. MAVERICK (test code = MAVERICK) Quality Assurance Analyst ID - CELESTINA Matamoros Lab Interpretation (test code = 37337-5) Abnormal [facility] 05:47:00* Test Item Value Reference Range Interpretation Comments Magnesium (test code = 61833-0) 1.6 mg/dL 1.6-2.6 MAVERICK (test code = MAVERICK) Quality Assurance Analyst ID Radha OSCAR W Lab Interpretation (test code = 81663-5) Normal [facility] 05:47:00* Test Item Value Reference Range Interpretation Comments Phosphorus (test code = 2777-1) 4.2 mg/dL 2.3-4.7 MAVERICK (test code = MAVERICK) Quality Assurance Analyst ID Radha Matamoros Lab Interpretation (test code = 42821-9) Normal [facility]2020-04-14 05:47:00* Test Item Value Reference Range Interpretation Comments PHOSPHORUS (BEAKER) (test code = 604) 4.2 mg/dL 2.3-4.7 Quality Assurance Analyst ID Radha OSCAR [id number] 05:47:00* Test Item Value Reference Range Interpretation Comments MAGNESIUM (BEAKER) (test code = 627) 1.6 mg/dL 1.6-2.6 Quality Assurance Analyst ID Radha OSCAR WBASIC METABOLIC [id number] 05:47:00* Test Item Value Reference Range Interpretation Comments SODIUM (BEAKER) (test code = 381) 135 meq/L 136-145 L POTASSIUM (BEAKER) (test code = 379) 3.8 meq/L 3.5-5.1 CHLORIDE (BEAKER) (test code = 382) 104 meq/L 98-107 CO2 (BEAKER) (test code = 355) 26 meq/L 22-29 BLOOD UREA NITROGEN (BEAKER) (test code = 354) 6 mg/dL 7-21 L CREATININE (BEAKER) (test code = 358) 1.01 mg/dL 0.57-1.25 GLUCOSE RANDOM (BEAKER) (test code = 652) 87 mg/dL 70-105 CALCIUM (BEAKER) (test code = 697) 8.4 mg/dL 8.4-10.2 EGFR (BEAKER) (test code = 1092) 75 mL/min/1.73 sq m ESTIMATED GFR IS NOT ACCURATE CREATININE CLEARANCE IN PREDICTING GLOMERULAR FILTRATION RATE. ESTIMATED GFR IS NOT APPLICABLE FOR DIALYSIS PATIENTS. Quality Assurance Analyst ID - CELESTINA [id number] 05:25:00* Test Item Value Reference Range Interpretation Comments PTT (test code = 38264-7) 41.1 22.5- 36.0 seconds H Lab Interpretation (test code = 50813-8) Abnormal [facility] 05:25:00* Test Item Value Reference Range Interpretation Comments PARTIAL THROMBOPLASTIN TIME (BEAKER) (test code = 760) 41.1 seconds 22.5-36.0 H Prothrombin time/[id number] 05:24:00* Test Item Value Reference Range Interpretation Comments Protime (test code = 5902-2) 17.6 11.9- 14.2 seconds H INR (test code = 6301-6) 1.5 <=5.9 MAVERICK (test code = MAVERICK) Effective 08/24/2018: PT Refe rence Range ChangeNew: 11.9- 14.2 Previous: 11.7-14.7 RECOMMENDED COUMADIN/WARFARIN INR THERAPY RANGESSTANDARD DOSE: 2.0-3.0 Includes: PROPHYLAXIS for venous thrombosis, sys temic embolization; TREATMENT for venous thrombosis and/or pulmonary embolus.HIGH RISK: Target INR is 2.5-3.5 for patients wiht mechanical heart valves. Lab Interpretation (test code = 92214-7) Abnormal [facility] TIME/[id number] 05:24:00* Test Item Value Reference Range Interpretation Comments PROTIME (BEAKER) (test code = 759) 17.6 seconds 11.9-14.2 H INR (BEAKER) (test code = 370) 1.5 <=5.9 Effective 08/24/2018: PT Reference Range ChangeNew: 11.9-14.2 Previous: 11.7-14. 7RECOMMENDED COUMADIN/WARFARIN INR THERAPY RANGESSTANDARD DOSE: 2.0-3.0 Include s: PROPHYLAXIS for venous thrombosis, systemic embolization; TREATMENT for venou s thrombosis and/or pulmonary embolus.HIGH RISK: Target INR is 2.5-3.5 for patie nts wiht mechanical heart valves.CBC (Hemogram only)2019-07-11 05:08:00* Test Item Value Reference Range Interpretation Comments WBC (test code = 6690-2) 5.9 3.5- 10.5 K/L RBC (test code = 789-8) 2.95 4.63- 6.08 M/L L MCHC (test code = 786-4) 32.7 32.3- 36.5 GM/DL L Hematocrit (test code = 4544-3) 26.6 % 40.1-51 L MCV (test code = 787-2) 90.2 fL 79-92.2 MCH (test code = 785-6) 29.5 pg 25.7-32.2 RDW (test code = 788-0) 15.2 % 11.6-14.4 H Platelets (test code = 777-3) 234 150- 450 K/CU MM MPV (test code = 86952-9) 9.2 fL 9.4-12.4 L nRBC (test code = 413) 0 0- 0 /100 WBC Lab Interpretation (test code = 87775-2) [facility] 05:08:00* Test Item Value Reference Range Interpretation Comments WHITE BLOOD CELL COUNT (BEAKER) (test code = 775) 5.9 K/ L 3.5- 10.5 RED BLOOD CELL COUNT (BEAKER) (test code = 761) 2.95 M/ L 4.63-6 .08 L HEMOGLOBIN (BEAKER) (test code = 410) 8.7 GM/DL 13.7-17.5 L HEMATOCRIT (BEAKER) (test code = 411) 26.6 % 40.1-51.0 L MEAN CORPUSCULAR VOLUME (BEAKER) (test code = 753) 90.2 fL 79. 0-92.2 MEAN CORPUSCULAR HEMOGLOBIN (BEAKER) (test code = 751) 29.5 pg 25.7-32.2 MEAN CORPUSCULAR HEMOGLOBIN CONC (BEAKER) (test code = 752) 32.7 GM/DL 32.3-36.5 RED CELL DISTRIBUTION WIDTH (BEAKER) (test code = 412) 15.2 % 11.6-14.4 H PLATELET COUNT (BEAKER) (test code = 756) 234 K/CU MM 150-450 MEAN PLATELET VOLUME (BEAKER) (test code = 754) 9.2 fL 9.4-12 .4 L NUCLEATED RED BLOOD CELLS (BEAKER) (test code = 413) 0 /100 WBC 0 -0 [id number] 19:27:00* Test Item Value Reference Range Interpretation Comments TSH (test code = 08088-1) 1.612 0.350- 4.940 uIU/mL MAVERICK (test code = MAVERICK) Quality Assurance Analyst ID - BS Lab Interpretation (test code = 50700-5) [facility] 19:27:00* Test Item Value Reference Range Interpretation Comments THYROID STIMULATING HORMONE (BEAKER) (test code = 772) 1.612 uIU /mL 0.350-4.940 Quality Assurance Analyst ID - BSRAD, ABDOMEN/KUB, 1 VIEW [id number] 07:43:00Reason for exam:-> ileusFINAL REPORT CLINICAL HISTORY: ileus TECHNIQUE: Supine abdomen COMPARISON: 07/09/2019 IMPRESSION: Mild gaseous prominence of large and small bowel is grossly unchanged. Free air and air-fluid levels are not definitively seen, but also cannot be excluded on the supine view. Signed: Mary Juarez MDReport Verified Date/Time: 07/10/2019 07:43:43 Reading Location: [facility] Radiology Reading Room [id number] 05:30:00* Test Item Value Reference Range Interpretation Comments PARTIAL THROMBOPLASTIN TIME (BEAKER) (test code = 760) 43.9 seconds 22.5-36.0 H PROTHROMBIN TIME/[id number] 05:29:00* Test Item Value Reference Range Interpretation Comments PROTIME (BEAKER) (test code = 759) 18.7 seconds 11.9-14.2 H INR (BEAKER) (test code = 370) 1.6 <=5.9 Effective 08/24/2018: PT Reference Range ChangeNew: 11.9-14.2 Previous: 11.7-14. 7RECOMMENDED COUMADIN/WARFARIN INR THERAPY RANGESSTANDARD DOSE: 2.0-3.0 Include s: PROPHYLAXIS for venous thrombosis, systemic embolization; TREATMENT for venou s thrombosis and/or pulmonary embolus.HIGH RISK: Target INR is 2.5-3.5 for patie nts wiht mechanical heart valves.[id number] 05:24:00* Test Item Value Reference Range Interpretation Comments PHOSPHORUS (BEAKER) (test code = 604) 3.9 mg/dL 2.3-4.7 Quality Assurance Analyst ID - RITCHIE [id number] 05:24:00* Test Item Value Reference Range Interpretation Comments MAGNESIUM (BEAKER) (test code = 627) 1.7 mg/dL 1.6-2.6 Quality Assurance Analyst ID - RITCHIE MBASIC METABOLIC [id number] 05:24:00* Test Item Value Reference Range Interpretation Comments SODIUM (BEAKER) (test code = 381) 136 meq/L 136-145 POTASSIUM (BEAKER) (test code = 379) 3.6 meq/L 3.5-5.1 CHLORIDE (BEAKER) (test code = 382) 105 meq/L 98-107 CO2 (BEAKER) (test code = 355) 26 meq/L 22-29 BLOOD UREA NITROGEN (BEAKER) (test code = 354) 3 mg/dL 7-21 L CREATININE (BEAKER) (test code = 358) 0.90 mg/dL 0.57-1.25 GLUCOSE RANDOM (BEAKER) (test code = 652) 79 mg/dL 70-105 CALCIUM (BEAKER) (test code = 697) 8.2 mg/dL 8.4-10.2 L EGFR (BEAKER) (test code = 1092) 86 mL/min/1.73 sq m ESTIMATED GFR IS NOT ACCURATE CREATININE CLEARANCE IN PREDICTING GLOMERULAR FILTRATION RATE. ESTIMATED GFR IS NOT APPLICABLE FOR DIALYSIS PATIENTS. Quality Assurance Analyst ID - RITCHIE MCBC (HEMOGRAM ONLY)2019-07-10 05:11:00* Test Item Value Reference Range Interpretation Comments WHITE BLOOD CELL COUNT (BEAKER) (test code = 775) 8.4 K/ L 3.5- 10.5 RED BLOOD CELL COUNT (BEAKER) (test code = 761) 2.80 M/ L 4.63-6 .08 L HEMOGLOBIN (BEAKER) (test code = 410) 8.4 GM/DL 13.7-17.5 L HEMATOCRIT (BEAKER) (test code = 411) 25.3 % 40.1-51.0 L MEAN CORPUSCULAR VOLUME (BEAKER) (test code = 753) 90.4 fL 79. 0-92.2 MEAN CORPUSCULAR HEMOGLOBIN (BEAKER) (test code = 751) 30.0 pg 25.7-32.2 MEAN CORPUSCULAR HEMOGLOBIN CONC (BEAKER) (test code = 752) 33.2 GM/DL 32.3-36.5 RED CELL DISTRIBUTION WIDTH (BEAKER) (test code = 412) 15.4 % 11.6-14.4 H PLATELET COUNT (BEAKER) (test code = 756) 226 K/CU MM 150-450 MEAN PLATELET VOLUME (BEAKER) (test code = 754) 9.0 fL 9.4-12 .4 L NUCLEATED RED BLOOD CELLS (BEAKER) (test code = 413) 0 /100 WBC 0 -0 RAD, ABDOMEN/KUB, 1 VIEW [id number] 06:53:00Reason for exam:->following ileus FINAL REPORT CLINICAL HISTORY: Ileus COMPARISON: 07/08/19 20 FINDINGS: 3 supine images of the abdomen are submitted. There is persistent, diffuse gaseous distention of large and small bowel, similar to previous. Stool is present and portions of of the colon. There is no acute bony abnormality. Ple ase note that a supine examination is insensitive in the detection of free intra peritoneal air. Signed: Jennifer Aguilar MDReport Verified Date/Time: 07/09/2019 0 6:53:04 [id number] 05:28:00* Test Item Value Reference Range Interpretation Comments PHOSPHORUS (BEAKER) (test code = 604) 4.1 mg/dL 2.3-4.7 Quality Assurance Analyst ID - MATHEUS [id number] 05:28:00* Test Item Value Reference Range Interpretation Comments MAGNESIUM (BEAKER) (test code = 627) 1.5 mg/dL 1.6-2.6 L Quality Assurance Analyst ID - MATHEUS LBASIC METABOLIC [id number] 05:28:00* Test Item Value Reference Range Interpretation Comments SODIUM (BEAKER) (test code = 381) 137 meq/L 136-145 POTASSIUM (BEAKER) (test code = 379) 3.5 meq/L 3.5-5.1 CHLORIDE (BEAKER) (test code = 382) 105 meq/L 98-107 CO2 (BEAKER) (test code = 355) 25 meq/L 22-29 BLOOD UREA NITROGEN (BEAKER) (test code = 354) 3 mg/dL 7-21 L CREATININE (BEAKER) (test code = 358) 0.87 mg/dL 0.57-1.25 GLUCOSE RANDOM (BEAKER) (test code = 652) 78 mg/dL 70-105 CALCIUM (BEAKER) (test code = 697) 8.0 mg/dL 8.4-10.2 L EGFR (BEAKER) (test code = 1092) 90 mL/min/1.73 sq m ESTIMATED GFR IS NOT ACCURATE CREATININE CLEARANCE IN PREDICTING GLOMERULAR FILTRATION RATE. ESTIMATED GFR IS NOT APPLICABLE FOR DIALYSIS PATIENTS. Quality Assurance Analyst ID - PIAYA LPROTHROMBIN TIME/[id number] 05:00:00* Test Item Value Reference Range Interpretation Comments PROTIME (BEAKER) (test code = 759) 18.1 seconds 11.9-14.2 H INR (BEAKER) (test code = 370) 1.5 <=5.9 Effective 08/24/2018: PT Reference Range ChangeNew: 11.9-14.2 Previous: 11.7-14. 7RECOMMENDED COUMADIN/WARFARIN INR THERAPY RANGESSTANDARD DOSE: 2.0-3.0 Include s: PROPHYLAXIS for venous thrombosis, systemic embolization; TREATMENT for venou s thrombosis and/or pulmonary embolus.HIGH RISK: Target INR is 2.5-3.5 for patie nts wiht mechanical heart valves.[id number] 05:00:00* Test Item Value Reference Range Interpretation Comments PARTIAL THROMBOPLASTIN TIME (BEAKER) (test code = 760) 40.7 seconds 22.5-36.0 H CBC (HEMOGRAM ONLY)2019-07-09 04:55:00* Test Item Value Reference Range Interpretation Comments WHITE BLOOD CELL COUNT (BEAKER) (test code = 775) 6.3 K/ L 3.5- 10.5 RED BLOOD CELL COUNT (BEAKER) (test code = 761) 2.78 M/ L 4.63-6 .08 L HEMOGLOBIN (BEAKER) (test code = 410) 8.4 GM/DL 13.7-17.5 L HEMATOCRIT (BEAKER) (test code = 411) 25.3 % 40.1-51.0 L MEAN CORPUSCULAR VOLUME (BEAKER) (test code = 753) 91.0 fL 79. 0-92.2 MEAN CORPUSCULAR HEMOGLOBIN (BEAKER) (test code = 751) 30.2 pg 25.7-32.2 MEAN CORPUSCULAR HEMOGLOBIN CONC (BEAKER) (test code = 752) 33.2 GM/DL 32.3-36.5 RED CELL DISTRIBUTION WIDTH (BEAKER) (test code = 412) 15.5 % 11.6-14.4 H PLATELET COUNT (BEAKER) (test code = 756) 214 K/CU MM 150-450 MEAN PLATELET VOLUME (BEAKER) (test code = 754) 9.3 fL 9.4-12 .4 L NUCLEATED RED BLOOD CELLS (BEAKER) (test code = 413) 0 /100 WBC 0 -0 [id number] 05:41:00* Test Item Value Reference Range Interpretation Comments PHOSPHORUS (BEAKER) (test code = 604) 4.2 mg/dL 2.3-4.7 Quality Assurance Analyst ID - RITCHIE [id number] 05:41:00* Test Item Value Reference Range Interpretation Comments MAGNESIUM (BEAKER) (test code = 627) 1.8 mg/dL 1.6-2.6 Quality Assurance Analyst ID - RITCHIE MBASIC METABOLIC [id number] 05:41:00* Test Item Value Reference Range Interpretation Comments SODIUM (BEAKER) (test code = 381) 139 meq/L 136-145 POTASSIUM (BEAKER) (test code = 379) 3.6 meq/L 3.5-5.1 CHLORIDE (BEAKER) (test code = 382) 106 meq/L 98-107 CO2 (BEAKER) (test code = 355) 27 meq/L 22-29 BLOOD UREA NITROGEN (BEAKER) (test code = 354) 3 mg/dL 7-21 L CREATININE (BEAKER) (test code = 358) 0.83 mg/dL 0.57-1.25 GLUCOSE RANDOM (BEAKER) (test code = 652) 83 mg/dL 70-105 CALCIUM (BEAKER) (test code = 697) 8.3 mg/dL 8.4-10.2 L EGFR (BEAKER) (test code = 1092) 95 mL/min/1.73 sq m ESTIMATED GFR IS NOT ACCURATE CREATININE CLEARANCE IN PREDICTING GLOMERULAR FILTRATION RATE. ESTIMATED GFR IS NOT APPLICABLE FOR DIALYSIS PATIENTS. Quality Assurance Analyst ID - RITCHIE [id number] 05:39:00* Test Item Value Reference Range Interpretation Comments PARTIAL THROMBOPLASTIN TIME (BEAKER) (test code = 760) 43.5 seconds 22.5-36.0 H PROTHROMBIN TIME/[id number] 05:38:00* Test Item Value Reference Range Interpretation Comments PROTIME (BEAKER) (test code = 759) 18.6 seconds 11.9-14.2 H INR (BEAKER) (test code = 370) 1.6 <=5.9 Effective 08/24/2018: PT Reference Range ChangeNew: 11.9-14.2 Previous: 11.7-14. 7RECOMMENDED COUMADIN/WARFARIN INR THERAPY RANGESSTANDARD DOSE: 2.0-3.0 Include s: PROPHYLAXIS for venous thrombosis, systemic embolization; TREATMENT for venou s thrombosis and/or pulmonary embolus.HIGH RISK: Target INR is 2.5-3.5 for patie nts wiht mechanical heart valves.CBC (HEMOGRAM ONLY)2019-07-08 05:20:00* Test Item Value Reference Range Interpretation Comments WHITE BLOOD CELL COUNT (BEAKER) (test code = 775) 6.4 K/ L 3.5- 10.5 RED BLOOD CELL COUNT (BEAKER) (test code = 761) 2.90 M/ L 4.63-6 .08 L HEMOGLOBIN (BEAKER) (test code = 410) 8.8 GM/DL 13.7-17.5 L HEMATOCRIT (BEAKER) (test code = 411) 26.2 % 40.1-51.0 L MEAN CORPUSCULAR VOLUME (BEAKER) (test code = 753) 90.3 fL 79. 0-92.2 MEAN CORPUSCULAR HEMOGLOBIN (BEAKER) (test code = 751) 30.3 pg 25.7-32.2 MEAN CORPUSCULAR HEMOGLOBIN CONC (BEAKER) (test code = 752) 33.6 GM/DL 32.3-36.5 RED CELL DISTRIBUTION WIDTH (BEAKER) (test code = 412) 15.9 % 11.6-14.4 H PLATELET COUNT (BEAKER) (test code = 756) 229 K/CU MM 150-450 MEAN PLATELET VOLUME (BEAKER) (test code = 754) 9.1 fL 9.4-12 .4 L NUCLEATED RED BLOOD CELLS (BEAKER) (test code = 413) 0 /100 WBC 0 -0 RAD, ABDOMEN/KUB, 1 VIEW [id number] 04:13:00Reason for exam:->following ileus FINAL REPORT CLINICAL HISTORY: Ileus COMPARISON: 07/07/19 20 FINDINGS: For supine images of the abdomen are submitted. There is a stable a ppearance of diffuse gaseous distention of large and small bowel suggestive of i leus. Stool overlies portions of the colon. Please note that a supine examinatio n is insensitive in the detection of free intraperitoneal air. Signed: Jennifer Aguilar MDReport Verified Date/Time: 07/08/2019 04:13:10 Electronically sign ed by: JENNIFER AGUILAR M.D. on 07/08/2019 04:13 AM [id number] 15:10:00 * Test Item Value Reference Range Interpretation Comments Potassium (test code = 2823-3) 4.3 meq/L 3.5-5.1 MAVERICK (test code = MAVERICK) Quality Assurance Analyst ID - ROSIANG Lab Interpretation (test code = 70787-3) [id number]:10[facility]* Test Item Value Reference Range Interpretation Comments POTASSIUM (BEAKER) (test code = 379) 4.3 meq/L 3.5-5.1 Quality Assurance Analyst ID - [id number] 15:10:00* Test Item Value Reference Range Interpretation Comments MAGNESIUM (BEAKER) (test code = 627) 1.8 mg/dL 1.6-2.6 Quality Assurance Analyst ID - [id number] 08:14:00* Test Item Value Reference Range Interpretation Comments PHOSPHORUS (BEAKER) (test code = 604) 4.1 mg/dL 2.3-4.7 Quality Assurance Analyst ID - [id number] 08:14:00* Test Item Value Reference Range Interpretation Comments MAGNESIUM (BEAKER) (test code = 627) 1.6 mg/dL 1.6-2.6 Quality Assurance Analyst ID - ROSIANGBASIC METABOLIC [id number] 08:14:00* Test Item Value Reference Range Interpretation Comments SODIUM (BEAKER) (test code = 381) 136 meq/L 136-145 POTASSIUM (BEAKER) (test code = 379) 3.3 meq/L 3.5-5.1 L CHLORIDE (BEAKER) (test code = 382) 104 meq/L 98-107 CO2 (BEAKER) (test code = 355) 26 meq/L 22-29 BLOOD UREA NITROGEN (BEAKER) (test code = 354) 3 mg/dL 7-21 L CREATININE (BEAKER) (test code = 358) 0.80 mg/dL 0.57-1.25 GLUCOSE RANDOM (BEAKER) (test code = 652) 88 mg/dL 70-105 CALCIUM (BEAKER) (test code = 697) 8.7 mg/dL 8.4-10.2 EGFR (BEAKER) (test code = 1092) 99 mL/min/1.73 sq m ESTIMATED GFR IS NOT ACCURATE CREATININE CLEARANCE IN PREDICTING GLOMERULAR FILTRATION RATE. ESTIMATED GFR IS NOT APPLICABLE FOR DIALYSIS PATIENTS. Quality Assurance Analyst ID - [id number] 08:07:00* Test Item Value Reference Range Interpretation Comments PARTIAL THROMBOPLASTIN TIME (BEAKER) (test code = 760) 42.6 seconds 22.5-36.0 H PROTHROMBIN TIME/[id number] 08:06:00* Test Item Value Reference Range Interpretation Comments PROTIME (BEAKER) (test code = 759) 17.5 seconds 11.9-14.2 H INR (BEAKER) (test code = 370) 1.5 <=5.9 Effective 08/24/2018: PT Reference Range ChangeNew: 11.9-14.2 Previous: 11.7-14. 7RECOMMENDED COUMADIN/WARFARIN INR THERAPY RANGESSTANDARD DOSE: 2.0-3.0 Include s: PROPHYLAXIS for venous thrombosis, systemic embolization; TREATMENT for venou s thrombosis and/or pulmonary embolus.HIGH RISK: Target INR is 2.5-3.5 for patie nts wiht mechanical heart valves.CBC (HEMOGRAM ONLY)2019-07-07 07:56:00* Test Item Value Reference Range Interpretation Comments WHITE BLOOD CELL COUNT (BEAKER) (test code = 775) 7.5 K/ L 3.5- 10.5 RED BLOOD CELL COUNT (BEAKER) (test code = 761) 2.94 M/ L 4.63-6 .08 L HEMOGLOBIN (BEAKER) (test code = 410) 8.8 GM/DL 13.7-17.5 L HEMATOCRIT (BEAKER) (test code = 411) 26.4 % 40.1-51.0 L MEAN CORPUSCULAR VOLUME (BEAKER) (test code = 753) 89.8 fL 79. 0-92.2 MEAN CORPUSCULAR HEMOGLOBIN (BEAKER) (test code = 751) 29.9 pg 25.7-32.2 MEAN CORPUSCULAR HEMOGLOBIN CONC (BEAKER) (test code = 752) 33.3 GM/DL 32.3-36.5 RED CELL DISTRIBUTION WIDTH (BEAKER) (test code = 412) 15.9 % 11.6-14.4 H PLATELET COUNT (BEAKER) (test code = 756) 231 K/CU MM 150-450 MEAN PLATELET VOLUME (BEAKER) (test code = 754) 9.0 fL 9.4-12 .4 L NUCLEATED RED BLOOD CELLS (BEAKER) (test code = 413) 0 /100 WBC 0 -0 RAD, ABDOMEN/KUB, 1 VIEW [id number] 04:15:00Reason for exam:->following ileus FINAL REPORT CLINICAL HISTORY: Ileus COMPARISON: 0 FINDINGS: For supine views of the abdomen are submitted. There is diffuse gase ous distention of the large and small bowel, similar to previous. Stool is prese nt in the colon. The examination is nonspecific but suggest ileus. No abnormal c alcification is noted. There is no acute bony abnormality. Signed: Jennifer Aguilar MDReport Verified Date/Time: 07/07/2019 04:15:36 [id number] 06:35:00* Test Item Value Reference Range Interpretation Comments PHOSPHORUS (BEAKER) (test code = 604) 3.8 mg/dL 2.3-4.7 Quality Assurance Analyst ID Radha JARVIS [id number] 06:35:00* Test Item Value Reference Range Interpretation Comments MAGNESIUM (BEAKER) (test code = 627) 1.6 mg/dL 1.6-2.6 Quality Assurance Analyst ID Radha JARVIS LBASIC METABOLIC [id number] 06:35:00* Test Item Value Reference Range Interpretation Comments SODIUM (BEAKER) (test code = 381) 138 meq/L 136-145 POTASSIUM (BEAKER) (test code = 379) 3.7 meq/L 3.5-5.1 CHLORIDE (BEAKER) (test code = 382) 106 meq/L 98-107 CO2 (BEAKER) (test code = 355) 25 meq/L 22-29 BLOOD UREA NITROGEN (BEAKER) (test code = 354) 4 mg/dL 7-21 L CREATININE (BEAKER) (test code = 358) 0.82 mg/dL 0.57-1.25 GLUCOSE RANDOM (BEAKER) (test code = 652) 86 mg/dL 70-105 CALCIUM (BEAKER) (test code = 697) 8.6 mg/dL 8.4-10.2 EGFR (BEAKER) (test code = 1092) 96 mL/min/1.73 sq m ESTIMATED GFR IS NOT ACCURATE CREATININE CLEARANCE IN PREDICTING GLOMERULAR FILTRATION RATE. ESTIMATED GFR IS NOT APPLICABLE FOR DIALYSIS PATIENTS. Quality Assurance Analyst ID Radha JARVIS LPROTHROMBIN TIME/[id number] 06:14:00* Test Item Value Reference Range Interpretation Comments PROTIME (BEAKER) (test code = 759) 18.2 seconds 11.9-14.2 H INR (BEAKER) (test code = 370) 1.6 <=5.9 Effective 08/24/2018: PT Reference Range ChangeNew: 11.9-14.2 Previous: 11.7-14. 7RECOMMENDED COUMADIN/WARFARIN INR THERAPY RANGESSTANDARD DOSE: 2.0-3.0 Include s: PROPHYLAXIS for venous thrombosis, systemic embolization; TREATMENT for venou s thrombosis and/or pulmonary embolus.HIGH RISK: Target INR is 2.5-3.5 for patie nts wiht mechanical heart valves.[id number] 06:14:00* Test Item Value Reference Range Interpretation Comments PARTIAL THROMBOPLASTIN TIME (BEAKER) (test code = 760) 42.3 seconds 22.5-36.0 H CBC (HEMOGRAM ONLY)2019-07-06 05:53:00* Test Item Value Reference Range Interpretation Comments WHITE BLOOD CELL COUNT (BEAKER) (test code = 775) 7.8 K/ L 3.5- 10.5 RED BLOOD CELL COUNT (BEAKER) (test code = 761) 3.07 M/ L 4.63-6 .08 L HEMOGLOBIN (BEAKER) (test code = 410) 9.2 GM/DL 13.7-17.5 L HEMATOCRIT (BEAKER) (test code = 411) 27.7 % 40.1-51.0 L MEAN CORPUSCULAR VOLUME (BEAKER) (test code = 753) 90.2 fL 79. 0-92.2 MEAN CORPUSCULAR HEMOGLOBIN (BEAKER) (test code = 751) 30.0 pg 25.7-32.2 MEAN CORPUSCULAR HEMOGLOBIN CONC (BEAKER) (test code = 752) 33.2 GM/DL 32.3-36.5 RED CELL DISTRIBUTION WIDTH (BEAKER) (test code = 412) 16.0 % 11.6-14.4 H PLATELET COUNT (BEAKER) (test code = 756) 227 K/CU MM 150-450 MEAN PLATELET VOLUME (BEAKER) (test code = 754) 8.8 fL 9.4-12 .4 L NUCLEATED RED BLOOD CELLS (BEAKER) (test code = 413) 0 /100 WBC 0 -0 RAD, ABDOMEN/KUB, 1 VIEW [id number] 04:27:00Reason for exam:->following ileus FINAL REPORT CLINICAL HISTORY: Ileus COMPARISON: 0 FINDINGS: For supine images of the abdomen are submitted. There is diffuse gas eous distention of large and small bowel, similar to previous. There is stool in the ascending and transverse colon. There is interposition of the hepatic flexu re. There is no evidence of organomegaly or significant ascites. There is no ac singh bony abnormality. Please note that a supine examination is insensitive in th e detection of free intraperitoneal air. Signed: Jennifer Aguilar MDRknawal Verified Date/Time: 07/06/2019 04:27:40 [id number] 17:47:00* Test Item Value Reference Range Interpretation Comments POTASSIUM (BEAKER) (test code = 379) 3.8 meq/L 3.5-5.1 Quality Assurance Analyst ID - BSRAD, ABDOMEN/KUB, 1 VIEW [id number] 07:56:00Reason for exam:-> Abdominal distensionFINAL REPORT RAD, ABDOMEN/KUB, 1 VIEW AP CLINICAL INDICATION: Abdominal distension COMPARISON: None TECHNIQUE: Single, frontal radiograph of the abdomen. FINDINGS: The bowel gas pattern again exhibits diffuse gaseous dilation involving both small and large bowel loops. A large colonic stool burden is again identified. There is no visible pneumatosis. Positioning is suboptimal for detection of free peritoneal gas. The regional skeleton is unchanged. Signed: Lisseth Loera Verified Date/Time: 07/05/2019 07:56:19 Reading Location: [facility] Radiology Reading Room [id number] 05:25:00* Test Item Value Reference Range Interpretation Comments PHOSPHORUS (BEAKER) (test code = 604) 3.8 mg/dL 2.3-4.7 Quality Assurance Analyst ID - RITCHIE [id number] 05:25:00* Test Item Value Reference Range Interpretation Comments MAGNESIUM (BEAKER) (test code = 627) 1.6 mg/dL 1.6-2.6 Quality Assurance Analyst ID - RITCHIE MBASIC METABOLIC [id number] 05:25:00* Test Item Value Reference Range Interpretation Comments SODIUM (BEAKER) (test code = 381) 135 meq/L 136-145 L POTASSIUM (BEAKER) (test code = 379) 3.3 meq/L 3.5-5.1 L CHLORIDE (BEAKER) (test code = 382) 106 meq/L 98-107 CO2 (BEAKER) (test code = 355) 22 meq/L 22-29 BLOOD UREA NITROGEN (BEAKER) (test code = 354) 6 mg/dL 7-21 L CREATININE (BEAKER) (test code = 358) 0.81 mg/dL 0.57-1.25 GLUCOSE RANDOM (BEAKER) (test code = 652) 79 mg/dL 70-105 CALCIUM (BEAKER) (test code = 697) 8.4 mg/dL 8.4-10.2 EGFR (BEAKER) (test code = 1092) 97 mL/min/1.73 sq m ESTIMATED GFR IS NOT ACCURATE CREATININE CLEARANCE IN PREDICTING GLOMERULAR FILTRATION RATE. ESTIMATED GFR IS NOT APPLICABLE FOR DIALYSIS PATIENTS. Quality Assurance Analyst ID - RITCHIE [id number] 05:20:00* Test Item Value Reference Range Interpretation Comments PARTIAL THROMBOPLASTIN TIME (BEAKER) (test code = 760) 35.8 seconds 22.5-36.0 PROTHROMBIN TIME/[id number] 05:19:00* Test Item Value Reference Range Interpretation Comments PROTIME (BEAKER) (test code = 759) 17.9 seconds 11.9-14.2 H INR (BEAKER) (test code = 370) 1.5 <=5.9 Effective 08/24/2018: PT Reference Range ChangeNew: 11.9-14.2 Previous: 11.7-14. 7RECOMMENDED COUMADIN/WARFARIN INR THERAPY RANGESSTANDARD DOSE: 2.0-3.0 Include s: PROPHYLAXIS for venous thrombosis, systemic embolization; TREATMENT for venou s thrombosis and/or pulmonary embolus.HIGH RISK: Target INR is 2.5-3.5 for patie nts wiht mechanical heart valves.CBC (HEMOGRAM ONLY)2019-07-05 05:10:00* Test Item Value Reference Range Interpretation Comments WHITE BLOOD CELL COUNT (BEAKER) (test code = 775) 7.5 K/ L 3.5- 10.5 RED BLOOD CELL COUNT (BEAKER) (test code = 761) 2.87 M/ L 4.63-6 .08 L HEMOGLOBIN (BEAKER) (test code = 410) 8.6 GM/DL 13.7-17.5 L HEMATOCRIT (BEAKER) (test code = 411) 26.1 % 40.1-51.0 L MEAN CORPUSCULAR VOLUME (BEAKER) (test code = 753) 90.9 fL 79. 0-92.2 MEAN CORPUSCULAR HEMOGLOBIN (BEAKER) (test code = 751) 30.0 pg 25.7-32.2 MEAN CORPUSCULAR HEMOGLOBIN CONC (BEAKER) (test code = 752) 33.0 GM/DL 32.3-36.5 RED CELL DISTRIBUTION WIDTH (BEAKER) (test code = 412) 16.6 % 11.6-14.4 H PLATELET COUNT (BEAKER) (test code = 756) 243 K/CU MM 150-450 MEAN PLATELET VOLUME (BEAKER) (test code = 754) 9.5 fL 9.4-12 .4 NUCLEATED RED BLOOD CELLS (BEAKER) (test code = 413) 0 /100 WBC 0 -0 [id number] 16:31:00* Test Item Value Reference Range Interpretation Comments POTASSIUM (BEAKER) (test code = 379) 3.6 meq/L 3.5-5.1 Quality Assurance Analyst ID - [id number] 05:33:00* Test Item Value Reference Range Interpretation Comments THYROID STIMULATING HORMONE (BEAKER) (test code = 772) 5.914 uIU /mL 0.350-4.940 H Quality Assurance Analyst ID - RITCHIE [id number] 05:09:00* Test Item Value Reference Range Interpretation Comments PHOSPHORUS (BEAKER) (test code = 604) 3.8 mg/dL 2.3-4.7 Quality Assurance Analyst ID - RITCHIE [id number] 05:09:00* Test Item Value Reference Range Interpretation Comments MAGNESIUM (BEAKER) (test code = 627) 1.7 mg/dL 1.6-2.6 Quality Assurance Analyst ID - RITCHIE MBASIC METABOLIC [id number] 05:09:00* Test Item Value Reference Range Interpretation Comments SODIUM (BEAKER) (test code = 381) 136 meq/L 136-145 POTASSIUM (BEAKER) (test code = 379) 3.5 meq/L 3.5-5.1 CHLORIDE (BEAKER) (test code = 382) 108 meq/L 98-107 H CO2 (BEAKER) (test code = 355) 24 meq/L 22-29 BLOOD UREA NITROGEN (BEAKER) (test code = 354) 6 mg/dL 7-21 L CREATININE (BEAKER) (test code = 358) 0.99 mg/dL 0.57-1.25 GLUCOSE RANDOM (BEAKER) (test code = 652) 80 mg/dL 70-105 CALCIUM (BEAKER) (test code = 697) 8.4 mg/dL 8.4-10.2 EGFR (BEAKER) (test code = 1092) 77 mL/min/1.73 sq m ESTIMATED GFR IS NOT ACCURATE CREATININE CLEARANCE IN PREDICTING GLOMERULAR FILTRATION RATE. ESTIMATED GFR IS NOT APPLICABLE FOR DIALYSIS PATIENTS. Quality Assurance Analyst ID - RITCHIE [id number] 05:01:00* Test Item Value Reference Range Interpretation Comments PARTIAL THROMBOPLASTIN TIME (BEAKER) (test code = 760) 39.1 seconds 22.5-36.0 H PROTHROMBIN TIME/[id number] 05:00:00* Test Item Value Reference Range Interpretation Comments PROTIME (BEAKER) (test code = 759) 17.4 seconds 11.9-14.2 H INR (BEAKER) (test code = 370) 1.5 <=5.9 Effective 08/24/2018: PT Reference Range ChangeNew: 11.9-14.2 Previous: 11.7-14. 7RECOMMENDED COUMADIN/WARFARIN INR THERAPY RANGESSTANDARD DOSE: 2.0-3.0 Include s: PROPHYLAXIS for venous thrombosis, systemic embolization; TREATMENT for venou s thrombosis and/or pulmonary embolus.HIGH RISK: Target INR is 2.5-3.5 for patie nts wiht mechanical heart valves.CBC (HEMOGRAM ONLY)2019-07-04 04:52:00* Test Item Value Reference Range Interpretation Comments WHITE BLOOD CELL COUNT (BEAKER) (test code = 775) 7.1 K/ L 3.5- 10.5 RED BLOOD CELL COUNT (BEAKER) (test code = 761) 2.75 M/ L 4.63-6 .08 L HEMOGLOBIN (BEAKER) (test code = 410) 8.3 GM/DL 13.7-17.5 L HEMATOCRIT (BEAKER) (test code = 411) 24.9 % 40.1-51.0 L MEAN CORPUSCULAR VOLUME (BEAKER) (test code = 753) 90.5 fL 79. 0-92.2 MEAN CORPUSCULAR HEMOGLOBIN (BEAKER) (test code = 751) 30.2 pg 25.7-32.2 MEAN CORPUSCULAR HEMOGLOBIN CONC (BEAKER) (test code = 752) 33.3 GM/DL 32.3-36.5 RED CELL DISTRIBUTION WIDTH (BEAKER) (test code = 412) 16.9 % 11.6-14.4 H PLATELET COUNT (BEAKER) (test code = 756) 234 K/CU MM 150-450 MEAN PLATELET VOLUME (BEAKER) (test code = 754) 9.0 fL 9.4-12 .4 L NUCLEATED RED BLOOD CELLS (BEAKER) (test code = 413) 0 /100 WBC 0 -0 [id number] 16:46:00* Test Item Value Reference Range Interpretation Comments POTASSIUM (BEAKER) (test code = 379) 3.4 meq/L 3.5-5.1 L Quality Assurance Analyst ID - [id number] 16:46:00* Test Item Value Reference Range Interpretation Comments MAGNESIUM (BEAKER) (test code = 627) 1.4 mg/dL 1.6-2.6 L Quality Assurance Analyst ID - BSRAD, ABDOMEN/KUB, 1 VIEW [id number] 07:56:00Reason for exam:-> abdominal distensionShould this be performed at the bedside?->YesFINAL REPORT RAD, ABDOMEN/KUB, 1 VIEW AP CLINICAL INDICATION: abdominal distension COMPARISON: July 02, 2019 TECHNIQUE: Four frontal r adiographs of the abdomen. IMPRESSION: The bowel gas pattern again exhibits dif fuse gaseous dilation involving both small and large bowel loops. A large coloni c stool burden is again identified. There is no visible pneumatosis. Positioning is suboptimal for detection of free peritoneal gas. The regional skeleton is un changed. Signed: JR Kingsley Robert MDReport Verified Date/Time: 07/03/19 07:56:09 Reading Location: [facility] Radiology Reading Room Electronic ally signed by: NIMISHA KINGSLEY on 07/03/2019 07:56 AM CBC (HEMOGRAM ONLY)2019-07-03 06:44:00* Test Item Value Reference Range Interpretation Comments WHITE BLOOD CELL COUNT (BEAKER) (test code = 775) 7.0 K/ L 3.5- 10.5 RED BLOOD CELL COUNT (BEAKER) (test code = 761) 2.73 M/ L 4.63-6 .08 L HEMOGLOBIN (BEAKER) (test code = 410) 8.2 GM/DL 13.7-17.5 L HEMATOCRIT (BEAKER) (test code = 411) 24.8 % 40.1-51.0 L MEAN CORPUSCULAR VOLUME (BEAKER) (test code = 753) 90.8 fL 79. 0-92.2 MEAN CORPUSCULAR HEMOGLOBIN (BEAKER) (test code = 751) 30.0 pg 25.7-32.2 MEAN CORPUSCULAR HEMOGLOBIN CONC (BEAKER) (test code = 752) 33.1 GM/DL 32.3-36.5 RED CELL DISTRIBUTION WIDTH (BEAKER) (test code = 412) 17.1 % 11.6-14.4 H PLATELET COUNT (BEAKER) (test code = 756) 261 K/CU MM 150-450 MEAN PLATELET VOLUME (BEAKER) (test code = 754) 9.5 fL 9.4-12 .4 NUCLEATED RED BLOOD CELLS (BEAKER) (test code = 413) 0 /100 WBC 0 -0 [id number] 06:19:00* Test Item Value Reference Range Interpretation Comments PHOSPHORUS (BEAKER) (test code = 604) 4.0 mg/dL 2.3-4.7 Quality Assurance Analyst ID - CELESTINA [id number] 06:19:00* Test Item Value Reference Range Interpretation Comments MAGNESIUM (BEAKER) (test code = 627) 1.6 mg/dL 1.6-2.6 Quality Assurance Analyst ID - CELESTINA WBASIC METABOLIC [id number] 06:19:00* Test Item Value Reference Range Interpretation Comments SODIUM (BEAKER) (test code = 381) 136 meq/L 136-145 POTASSIUM (BEAKER) (test code = 379) 3.3 meq/L 3.5-5.1 L CHLORIDE (BEAKER) (test code = 382) 108 meq/L 98-107 H CO2 (BEAKER) (test code = 355) 23 meq/L 22-29 BLOOD UREA NITROGEN (BEAKER) (test code = 354) 6 mg/dL 7-21 L CREATININE (BEAKER) (test code = 358) 0.91 mg/dL 0.57-1.25 GLUCOSE RANDOM (BEAKER) (test code = 652) 81 mg/dL 70-105 CALCIUM (BEAKER) (test code = 697) 8.2 mg/dL 8.4-10.2 L EGFR (BEAKER) (test code = 1092) 85 mL/min/1.73 sq m ESTIMATED GFR IS NOT ACCURATE CREATININE CLEARANCE IN PREDICTING GLOMERULAR FILTRATION RATE. ESTIMATED GFR IS NOT APPLICABLE FOR DIALYSIS PATIENTS. Quality Assurance Analyst ID - CELESTINA WPROTHROMBIN TIME/[id number] 06:04:00* Test Item Value Reference Range Interpretation Comments PROTIME (BEAKER) (test code = 759) 16.6 seconds 11.9-14.2 H INR (BEAKER) (test code = 370) 1.4 <=5.9 Effective 08/24/2018: PT Reference Range ChangeNew: 11.9-14.2 Previous: 11.7-14. 7RECOMMENDED COUMADIN/WARFARIN INR THERAPY RANGESSTANDARD DOSE: 2.0-3.0 Include s: PROPHYLAXIS for venous thrombosis, systemic embolization; TREATMENT for venou s thrombosis and/or pulmonary embolus.HIGH RISK: Target INR is 2.5-3.5 for patie nts wiht mechanical heart valves.[id number] 06:04:00* Test Item Value Reference Range Interpretation Comments PARTIAL THROMBOPLASTIN TIME (BEAKER) (test code = 760) 39.3 seconds 22.5-36.0 H RAD, ABDOMEN/KUB, 1 VIEW [id number] 07:08:00Reason for exam:->abdominal distensionShould this be performed at the bedside?->YesFINAL REPORT TECHNIQUE: Single View of the Abdomen. INDICATION: abdominal distension. COMPARISON: KUB from 07/01/2019. CT from 06/29/2019 FI NDINGS/IMPRESSION: There is marked gaseous distention of the bowel with a large amount of stool in the right colon. There appears to be gas in the left colon as well. No gas in the rectum. Given the findings on the prior CT, this is most co nsistent with an adynamic ileus. Moderate degenerative disc changes of the lumba r spine. Signed: Melissa [place] Verified Date/Time: 07/02/2019 07:08:14 Re ading Location: [facility] C013Y CT Body Reading Room [id number] 06:35:00* Test Item Value Reference Range Interpretation Comments PARTIAL THROMBOPLASTIN TIME (BEAKER) (test code = 760) 38.3 seconds 22.5-36.0 H PROTHROMBIN TIME/[id number] 06:34:00* Test Item Value Reference Range Interpretation Comments PROTIME (BEAKER) (test code = 759) 16.9 seconds 11.9-14.2 H INR (BEAKER) (test code = 370) 1.4 <=5.9 Effective 08/24/2018: PT Reference Range ChangeNew: 11.9-14.2 Previous: 11.7-14. 7RECOMMENDED COUMADIN/WARFARIN INR THERAPY RANGESSTANDARD DOSE: 2.0-3.0 Include s: PROPHYLAXIS for venous thrombosis, systemic embolization; TREATMENT for venou s thrombosis and/or pulmonary embolus.HIGH RISK: Target INR is 2.5-3.5 for patie nts wiht mechanical heart valves.[id number] 06:07:00* Test Item Value Reference Range Interpretation Comments PHOSPHORUS (BEAKER) (test code = 604) 3.7 mg/dL 2.3-4.7 Quality Assurance Analyst ID - MATHEUS [id number] 06:07:00* Test Item Value Reference Range Interpretation Comments MAGNESIUM (BEAKER) (test code = 627) 1.6 mg/dL 1.6-2.6 Quality Assurance Analyst ID - PIAYA LBASIC METABOLIC [id number] 06:07:00* Test Item Value Reference Range Interpretation Comments SODIUM (BEAKER) (test code = 381) 137 meq/L 136-145 POTASSIUM (BEAKER) (test code = 379) 3.2 meq/L 3.5-5.1 L CHLORIDE (BEAKER) (test code = 382) 109 meq/L 98-107 H CO2 (BEAKER) (test code = 355) 23 meq/L 22-29 BLOOD UREA NITROGEN (BEAKER) (test code = 354) 7 mg/dL 7-21 CREATININE (BEAKER) (test code = 358) 0.92 mg/dL 0.57-1.25 GLUCOSE RANDOM (BEAKER) (test code = 652) 84 mg/dL 70-105 CALCIUM (BEAKER) (test code = 697) 8.0 mg/dL 8.4-10.2 L EGFR (BEAKER) (test code = 1092) 84 mL/min/1.73 sq m ESTIMATED GFR IS NOT ACCURATE CREATININE CLEARANCE IN PREDICTING GLOMERULAR FILTRATION RATE. ESTIMATED GFR IS NOT APPLICABLE FOR DIALYSIS PATIENTS. Quality Assurance Analyst ID - PIAYA LCBC (HEMOGRAM ONLY)2019-07-02 05:34:00* Test Item Value Reference Range Interpretation Comments WHITE BLOOD CELL COUNT (BEAKER) (test code = 775) 5.0 K/ L 3.5- 10.5 RED BLOOD CELL COUNT (BEAKER) (test code = 761) 2.75 M/ L 4.63-6 .08 L HEMOGLOBIN (BEAKER) (test code = 410) 7.9 GM/DL 13.7-17.5 L HEMATOCRIT (BEAKER) (test code = 411) 24.8 % 40.1-51.0 L MEAN CORPUSCULAR VOLUME (BEAKER) (test code = 753) 90.2 fL 79. 0-92.2 MEAN CORPUSCULAR HEMOGLOBIN (BEAKER) (test code = 751) 28.7 pg 25.7-32.2 MEAN CORPUSCULAR HEMOGLOBIN CONC (BEAKER) (test code = 752) 31.9 GM/DL 32.3-36.5 L RED CELL DISTRIBUTION WIDTH (BEAKER) (test code = 412) 17.2 % 11.6-14.4 H PLATELET COUNT (BEAKER) (test code = 756) 267 K/CU MM 150-450 MEAN PLATELET VOLUME (BEAKER) (test code = 754) 9.1 fL 9.4-12 .4 L NUCLEATED RED BLOOD CELLS (BEAKER) (test code = 413) 0 /100 WBC 0 -0 RAD, ABDOMEN/KUB, 1 VIEW [id number] 07:26:00Reason for exam:->abdominalShould this be performed at the bedside?->YesFINAL REPORT ONE VIEW ABDOMEN HISTORY: Abdominal distention COMPARISON: 06/30/2019 FINDINGS: 2 supine AP images of the abdomen and pelvis were obtained. There are multiple gas-filled dilated loops of large and small intestine, similar in appearance to the prior study, suggestive of adynamic ileus. There is some residual contrast in the right colon from a prior CT of the abdomen of 06/29/2019. The imaged lung bases appear clear. Signed: Edis Hale Verified Date/Time: 07/01/2019 07:26:58 Reading Location: [facility] [id number] Transitional Reading Room PHORUS 2019-07-01 05:26:00* Test Item Value Reference Range Interpretation Comments PHOSPHORUS (BEAKER) (test code = 604) 3.3 mg/dL 2.3-4.7 Quality Assurance Analyst ID - PIKELLY [id number] 05:26:00* Test Item Value Reference Range Interpretation Comments MAGNESIUM (BEAKER) (test code = 627) 1.9 mg/dL 1.6-2.6 Quality Assurance Analyst ID - SAULKELLY LBASIC METABOLIC [id number] 05:26:00* Test Item Value Reference Range Interpretation Comments SODIUM (BEAKER) (test code = 381) 136 meq/L 136-145 POTASSIUM (BEAKER) (test code = 379) 3.2 meq/L 3.5-5.1 L CHLORIDE (BEAKER) (test code = 382) 109 meq/L 98-107 H CO2 (BEAKER) (test code = 355) 22 meq/L 22-29 BLOOD UREA NITROGEN (BEAKER) (test code = 354) 6 mg/dL 7-21 L CREATININE (BEAKER) (test code = 358) 0.84 mg/dL 0.57-1.25 GLUCOSE RANDOM (BEAKER) (test code = 652) 84 mg/dL 70-105 CALCIUM (BEAKER) (test code = 697) 8.0 mg/dL 8.4-10.2 L EGFR (BEAKER) (test code = 1092) 93 mL/min/1.73 sq m ESTIMATED GFR IS NOT ACCURATE CREATININE CLEARANCE IN PREDICTING GLOMERULAR FILTRATION RATE. ESTIMATED GFR IS NOT APPLICABLE FOR DIALYSIS PATIENTS. Quality Assurance Analyst ID - PIKELLY [id number] 05:19:00* Test Item Value Reference Range Interpretation Comments PARTIAL THROMBOPLASTIN TIME (BEAKER) (test code = 760) 37.5 seconds 22.5-36.0 H PROTHROMBIN [id number] 05:18:00* Test Item Value Reference Range Interpretation Comments PROTIME (BEAKER) (test code = 759) 18.3 seconds 11.9-14.2 H INR (BEAKER) (test code = 370) 1.6 <=5.9 Effective 08/24/2018: PT Reference Range ChangeNew: 11.9-14.2 Previous: 11.7-14. 7RECOMMENDED COUMADIN/WARFARIN INR THERAPY RANGESSTANDARD DOSE: 2.0-3.0 Include s: PROPHYLAXIS for venous thrombosis, systemic embolization; TREATMENT for venou s thrombosis and/or pulmonary embolus.HIGH RISK: Target INR is 2.5-3.5 for patie nts wiht mechanical heart valves.CBC (HEMOGRAM ONLY)2019-07-01 05:05:00* Test Item Value Reference Range Interpretation Comments WHITE BLOOD CELL COUNT (BEAKER) (test code = 775) 4.9 K/ L 3.5- 10.5 RED BLOOD CELL COUNT (BEAKER) (test code = 761) 2.74 M/ L 4.63-6 .08 L HEMOGLOBIN (BEAKER) (test code = 410) 8.3 GM/DL 13.7-17.5 L HEMATOCRIT (BEAKER) (test code = 411) 24.9 % 40.1-51.0 L MEAN CORPUSCULAR VOLUME (BEAKER) (test code = 753) 90.9 fL 79. 0-92.2 MEAN CORPUSCULAR HEMOGLOBIN (BEAKER) (test code = 751) 30.3 pg 25.7-32.2 MEAN CORPUSCULAR HEMOGLOBIN CONC (BEAKER) (test code = 752) 33.3 GM/DL 32.3-36.5 RED CELL DISTRIBUTION WIDTH (BEAKER) (test code = 412) 17.4 % 11.6-14.4 H PLATELET COUNT (BEAKER) (test code = 756) 261 K/CU MM 150-450 MEAN PLATELET VOLUME (BEAKER) (test code = 754) 9.1 fL 9.4-12 .4 L NUCLEATED RED BLOOD CELLS (BEAKER) (test code = 413) 0 /100 WBC 0 -0 [id number] 17:58:00* Test Item Value Reference Range Interpretation Comments POTASSIUM (BEAKER) (test code = 379) 3.5 meq/L 3.5-5.1 Quality Assurance Analyst ID - RITCHIE [id number] 17:58:00* Test Item Value Reference Range Interpretation Comments MAGNESIUM (BEAKER) (test code = 627) 2.0 mg/dL 1.6-2.6 Quality Assurance Analyst ID - RITCHIE MRAD, ABDOMEN/KUB, 1 VIEW [id number] 09:23:00Reason for exam:->monitor abdominal distensionShould this be performed at the bedside?->Yes FINAL REPORT RAD, ABDOMEN/KUB, 1 VIEW AP CLINICAL INDICAT ION: monitor abdominal distension COMPARISON: June 28, 2019 TECHNIQUE: H fron zach radiographs of the abdomen. IMPRESSION: The bowel gas pattern again demonst rates diffuse gaseous dilation of both small and large bowel loops. There is a l arge proximal colonic stool burden. No visible pneumatosis. The regional skeleto n is intact. Signed: JR Kingsley Robert MDReport Verified Date/Time: 05/2019 09:23:50 Reading Location: [facility] Radiology Reading Room Electr onically signed by: NIMISHA KINGSLEY on 06/30/2019 09:23 AM [id number] 05:28:00* Test Item Value Reference Range Interpretation Comments PARTIAL THROMBOPLASTIN TIME (BEAKER) (test code = 760) 38.8 seconds 22.5-36.0 H PROTHROMBIN [id number] 05:26:00* Test Item Value Reference Range Interpretation Comments PROTIME (BEAKER) (test code = 759) 18.2 seconds 11.9-14.2 H INR (BEAKER) (test code = 370) 1.6 <=5.9 Effective 08/24/2018: PT Reference Range ChangeNew: 11.9-14.2 Previous: 11.7-14. 7RECOMMENDED COUMADIN/WARFARIN INR THERAPY RANGESSTANDARD DOSE: 2.0-3.0 Include s: PROPHYLAXIS for venous thrombosis, systemic embolization; TREATMENT for venou s thrombosis and/or pulmonary embolus.HIGH RISK: Target INR is 2.5-3.5 for patie nts wiht mechanical heart valves.[id number] 05:16:00* Test Item Value Reference Range Interpretation Comments PHOSPHORUS (BEAKER) (test code = 604) 3.2 mg/dL 2.3-4.7 Quality Assurance Analyst ID - RITCHIE [id number] 05:16:00* Test Item Value Reference Range Interpretation Comments MAGNESIUM (BEAKER) (test code = 627) 1.8 mg/dL 1.6-2.6 Quality Assurance Analyst ID - RITCHIE MBASIC METABOLIC [id number] 05:16:00* Test Item Value Reference Range Interpretation Comments SODIUM (BEAKER) (test code = 381) 137 meq/L 136-145 POTASSIUM (BEAKER) (test code = 379) 3.4 meq/L 3.5-5.1 L CHLORIDE (BEAKER) (test code = 382) 110 meq/L 98-107 H CO2 (BEAKER) (test code = 355) 22 meq/L 22-29 BLOOD UREA NITROGEN (BEAKER) (test code = 354) 7 mg/dL 7-21 CREATININE (BEAKER) (test code = 358) 0.84 mg/dL 0.57-1.25 GLUCOSE RANDOM (BEAKER) (test code = 652) 83 mg/dL 70-105 CALCIUM (BEAKER) (test code = 697) 8.1 mg/dL 8.4-10.2 L EGFR (BEAKER) (test code = 1092) 93 mL/min/1.73 sq m ESTIMATED GFR IS NOT ACCURATE CREATININE CLEARANCE IN PREDICTING GLOMERULAR FILTRATION RATE. ESTIMATED GFR IS NOT APPLICABLE FOR DIALYSIS PATIENTS. Quality Assurance Analyst ID Radha DUGAN MCBC (HEMOGRAM ONLY)2019-06-30 04:49:00* Test Item Value Reference Range Interpretation Comments WHITE BLOOD CELL COUNT (BEAKER) (test code = 775) 5.8 K/ L 3.5- 10.5 RED BLOOD CELL COUNT (BEAKER) (test code = 761) 2.70 M/ L 4.63-6 .08 L HEMOGLOBIN (BEAKER) (test code = 410) 8.2 GM/DL 13.7-17.5 L HEMATOCRIT (BEAKER) (test code = 411) 24.7 % 40.1-51.0 L MEAN CORPUSCULAR VOLUME (BEAKER) (test code = 753) 91.5 fL 79. 0-92.2 MEAN CORPUSCULAR HEMOGLOBIN (BEAKER) (test code = 751) 30.4 pg 25.7-32.2 MEAN CORPUSCULAR HEMOGLOBIN CONC (BEAKER) (test code = 752) 33.2 GM/DL 32.3-36.5 RED CELL DISTRIBUTION WIDTH (BEAKER) (test code = 412) 17.6 % 11.6-14.4 H PLATELET COUNT (BEAKER) (test code = 756) 263 K/CU MM 150-450 MEAN PLATELET VOLUME (BEAKER) (test code = 754) 9.2 fL 9.4-12 .4 L NUCLEATED RED BLOOD CELLS (BEAKER) (test code = 413) 0 /100 WBC 0 -0 [id number] 13:36:00* Test Item Value Reference Range Interpretation Comments POTASSIUM (BEAKER) (test code = 379) 3.6 meq/L 3.5-5.1 Quality Assurance Analyst ID - CHELITA [id number] 05:54:00* Test Item Value Reference Range Interpretation Comments PARTIAL THROMBOPLASTIN TIME (BEAKER) (test code = 760) 37.7 seconds 22.5-36.0 H [id number] 05:53:00* Test Item Value Reference Range Interpretation Comments PHOSPHORUS (BEAKER) (test code = 604) 3.6 mg/dL 2.3-4.7 Quality Assurance Analyst ID - MATHEUS [id number] 05:53:00* Test Item Value Reference Range Interpretation Comments MAGNESIUM (BEAKER) (test code = 627) 1.6 mg/dL 1.6-2.6 Quality Assurance Analyst ID - MATHEUS LBASIC METABOLIC [id number] 05:53:00* Test Item Value Reference Range Interpretation Comments SODIUM (BEAKER) (test code = 381) 134 meq/L 136-145 L POTASSIUM (BEAKER) (test code = 379) 3.3 meq/L 3.5-5.1 L CHLORIDE (BEAKER) (test code = 382) 107 meq/L 98-107 CO2 (BEAKER) (test code = 355) 21 meq/L 22-29 L BLOOD UREA NITROGEN (BEAKER) (test code = 354) 8 mg/dL 7-21 CREATININE (BEAKER) (test code = 358) 0.90 mg/dL 0.57-1.25 GLUCOSE RANDOM (BEAKER) (test code = 652) 86 mg/dL 70-105 CALCIUM (BEAKER) (test code = 697) 8.1 mg/dL 8.4-10.2 L EGFR (BEAKER) (test code = 1092) 86 mL/min/1.73 sq m ESTIMATED GFR IS NOT ACCURATE CREATININE CLEARANCE IN PREDICTING GLOMERULAR FILTRATION RATE. ESTIMATED GFR IS NOT APPLICABLE FOR DIALYSIS PATIENTS. Quality Assurance Analyst ID - PIAYA LPROTHROMBIN TIME/[id number] 05:53:00* Test Item Value Reference Range Interpretation Comments PROTIME (BEAKER) (test code = 759) 17.0 seconds 11.9-14.2 H INR (BEAKER) (test code = 370) 1.4 <=5.9 Effective 08/24/2018: PT Reference Range ChangeNew: 11.9-14.2 Previous: 11.7-14. 7RECOMMENDED COUMADIN/WARFARIN INR THERAPY RANGESSTANDARD DOSE: 2.0-3.0 Include s: PROPHYLAXIS for venous thrombosis, systemic embolization; TREATMENT for venou s thrombosis and/or pulmonary embolus.HIGH RISK: Target INR is 2.5-3.5 for patie nts wiht mechanical heart valves.CBC (HEMOGRAM ONLY)2019-06-29 05:24:00* Test Item Value Reference Range Interpretation Comments WHITE BLOOD CELL COUNT (BEAKER) (test code = 775) 5.4 K/ L 3.5- 10.5 RED BLOOD CELL COUNT (BEAKER) (test code = 761) 2.81 M/ L 4.63-6 .08 L HEMOGLOBIN (BEAKER) (test code = 410) 8.4 GM/DL 13.7-17.5 L HEMATOCRIT (BEAKER) (test code = 411) 25.2 % 40.1-51.0 L MEAN CORPUSCULAR VOLUME (BEAKER) (test code = 753) 89.7 fL 79. 0-92.2 MEAN CORPUSCULAR HEMOGLOBIN (BEAKER) (test code = 751) 29.9 pg 25.7-32.2 MEAN CORPUSCULAR HEMOGLOBIN CONC (BEAKER) (test code = 752) 33.3 GM/DL 32.3-36.5 RED CELL DISTRIBUTION WIDTH (BEAKER) (test code = 412) 17.4 % 11.6-14.4 H PLATELET COUNT (BEAKER) (test code = 756) 281 K/CU MM 150-450 MEAN PLATELET VOLUME (BEAKER) (test code = 754) 9.2 fL 9.4-12 .4 L NUCLEATED RED BLOOD CELLS (BEAKER) (test code = 413) 0 /100 WBC 0 -0 CT, [id number] 01:31:00WITH ORAL CONTRASTFINAL REPORT CLINICAL HISTORY: Ileus FINDINGS: Multiple axial [...] Spleen: No significant findings. Adrenal Glands: No s ignificant findings. Kidneys and ureters: No significant findings. Stomach and D uodenum: Small hiatal hernia Pancreas: No significant findings. Bowel: There is diffuse distention of large and small bowel loops without focal transition point . Enteric contrast passes to the hepatic flexure. There is fluid density stool t o the level of the rectum and there is subtle loss of mucosal folds in the left colon. Appendix: Normal. Bladder: No significant findings. Major vascular str uctures: Atherosclerotic calcifications. 3.8 cm infrarenal, suprailiac abdominal aortic aneurysm. Reproductive organs: No significant findings. Other: Small vol ume ascites. Diffuse subcutaneous edema. Skeleton: No acute bony abnormality . IMPRESSION: Nonspecific findings which could reflect ileus, colitis or enteroc olitis. Infectious, inflammatory and ischemic causes can be considered. Trace bi lateral pleural effusions and adjacent atelectasis versus pneumonitis. Small vol ume ascites and diffuse subcutaneous edema. Small hiatal hernia. An abdominal ao rtic aneurysm measures 3.8 cm in diameter. A follow-up examination is recommend ed every 2 years. Signed: Jennifer Aguilar Verified Date/Time: 0 01:31:48 01 :[address] abdomen/pelvis without iv [id number] 01:31:00Interface, External Ris In - 06/29/2019 1:34 AM CDTFINAL REPORT CLINICAL HISTORY: Ileus FINDINGS: Multiple axial images of the abdomen and pelvis were performed without intravenous contrast. Oral contrast was given. This exam was performed according to our departmental dose-optimization program, which includes automated exposure control, adjustment of the mA and/or kV acco rding to patient size and/or use of the iterative reconstruction technique. Comp arison:None. Lower chest: Trace bilateral effusions and adjacent atelectasis. No pneumothorax. Visualized cardiac contours normal. Previous sternotomy. Liver: N o significant findings. Gallbladder and biliary tree: No significant findings. S pleen: No significant findings. Adrenal Glands: No significant findings. Kidneys and ureters: No significant findings. Stomach and Duodenum: Small hiatal hernia Pancreas: No significant findings. Bowel: There is diffuse distention of large and small bowel loops without focal transition point. Enteric contrast passes to the hepatic flexure. There is fluid density stool to the level of the rectum an d there is subtle loss of mucosal folds in the left colon. Appendix: Normal. Bladder: No significant findings. Major vascular structures: Atherosclerotic corwin cifications. 3.8 cm infrarenal, suprailiac abdominal aortic aneurysm. Reproducti ve organs: No significant findings. Other: Small volume ascites. Diffuse subcuta neous edema. Skeleton: No acute bony abnormality. IMPRESSION: Nonspecific fi ndings which could reflect ileus, colitis or enterocolitis. Infectious, inflamma tory and ischemic causes can be considered. Trace bilateral pleural effusions an d adjacent atelectasis versus pneumonitis. Small volume ascites and diffuse subc utaneous edema. Small hiatal hernia. An abdominal aortic aneurysm measures 3.8 c m in diameter. A follow-up examination is recommended every 2 years. Signed: Jennifer Bates MDReport Verified Date/Time: 06/29/2019 01:31:48 Electronica lly signed by: JENNIFER AGUILAR M.D. on 06/29/2019 01:31 AM [facility] 22:41[facility]00* Test Item Value Reference Range Interpretation Comments POTASSIUM (BEAKER) (test code = 379) 3.5 meq/L 3.5-5.1 Quality Assurance Analyst ID - CAROLINA FRAD, ABDOMEN/KUB, 1 VIEW [id number] 14:02:00Reason for exam:->follow-up IleusFINAL REPORT Abdomen , one view History: Follow-up of ileus Comparison: 06/20/2019 Findings:Distended loops of both small and large bowel are seen throughout the abdomen and pelvis. No definite bowel pneumatosis or portal venous gas. No calcifications along the expected course of the urinary tract. Impression:Distended loops of small large bowel throughout the abdomen and pelvis, suggesting persistent ileus. Signed: [place] MDReport Verified Date/Time: 06/28/2019 14:02:50 Reading Location: [facility] Diagnostic Imaging Reading Room - [place] [id number] PHORUS 2019-06-28 06:02:00* Test Item Value Reference Range Interpretation Comments PHOSPHORUS (BEAKER) (test code = 604) 4.2 mg/dL 2.3-4.7 Quality Assurance Analyst ID - [id number] 06:02:00* Test Item Value Reference Range Interpretation Comments MAGNESIUM (BEAKER) (test code = 627) 1.7 mg/dL 1.6-2.6 Quality Assurance Analyst ID - LMBASIC METABOLIC [id number] 06:02:00* Test Item Value Reference Range Interpretation Comments SODIUM (BEAKER) (test code = 381) 136 meq/L 136-145 POTASSIUM (BEAKER) (test code = 379) 3.1 meq/L 3.5-5.1 L CHLORIDE (BEAKER) (test code = 382) 109 meq/L 98-107 H CO2 (BEAKER) (test code = 355) 21 meq/L 22-29 L BLOOD UREA NITROGEN (BEAKER) (test code = 354) 8 mg/dL 7-21 CREATININE (BEAKER) (test code = 358) 0.95 mg/dL 0.57-1.25 GLUCOSE RANDOM (BEAKER) (test code = 652) 96 mg/dL 70-105 CALCIUM (BEAKER) (test code = 697) 8.4 mg/dL 8.4-10.2 EGFR (BEAKER) (test code = 1092) 81 mL/min/1.73 sq m ESTIMATED GFR IS NOT ACCURATE CREATININE CLEARANCE IN PREDICTING GLOMERULAR FILTRATION RATE. ESTIMATED GFR IS NOT APPLICABLE FOR DIALYSIS PATIENTS. Quality Assurance Analyst ID - LMPROTHROMBIN TIME/[id number] 06:00:00* Test Item Value Reference Range Interpretation Comments PROTIME (BEAKER) (test code = 759) 15.8 seconds 11.9-14.2 H INR (BEAKER) (test code = 370) 1.3 <=5.9 Effective 08/24/2018: PT Reference Range ChangeNew: 11.9-14.2 Previous: 11.7-14. 7RECOMMENDED COUMADIN/WARFARIN INR THERAPY RANGESSTANDARD DOSE: 2.0-3.0 Include s: PROPHYLAXIS for venous thrombosis, systemic embolization; TREATMENT for venou s thrombosis and/or pulmonary embolus.HIGH RISK: Target INR is 2.5-3.5 for patie nts wiht mechanical heart valves.[id number] 06:00:00* Test Item Value Reference Range Interpretation Comments PARTIAL THROMBOPLASTIN TIME (BEAKER) (test code = 760) 34.0 seconds 22.5-36.0 CBC (HEMOGRAM ONLY)2019-06-28 05:36:00* Test Item Value Reference Range Interpretation Comments WHITE BLOOD CELL COUNT (BEAKER) (test code = 775) 7.9 K/ L 3.5- 10.5 RED BLOOD CELL COUNT (BEAKER) (test code = 761) 2.94 M/ L 4.63-6 .08 L HEMOGLOBIN (BEAKER) (test code = 410) 8.6 GM/DL 13.7-17.5 L HEMATOCRIT (BEAKER) (test code = 411) 26.2 % 40.1-51.0 L MEAN CORPUSCULAR VOLUME (BEAKER) (test code = 753) 89.1 fL 79. 0-92.2 MEAN CORPUSCULAR HEMOGLOBIN (BEAKER) (test code = 751) 29.3 pg 25.7-32.2 MEAN CORPUSCULAR HEMOGLOBIN CONC (BEAKER) (test code = 752) 32.8 GM/DL 32.3-36.5 RED CELL DISTRIBUTION WIDTH (BEAKER) (test code = 412) 17.3 % 11.6-14.4 H PLATELET COUNT (BEAKER) (test code = 756) 281 K/CU MM 150-450 MEAN PLATELET VOLUME (BEAKER) (test code = 754) 8.9 fL 9.4-12 .4 L NUCLEATED RED BLOOD CELLS (BEAKER) (test code = 413) 0 /100 WBC 0 -0 [id number] 05:38:00* Test Item Value Reference Range Interpretation Comments THYROID STIMULATING HORMONE (BEAKER) (test code = 772) 19.60 uIU/mL 0.35-4.94 H Quality Assurance Analyst ID - RITCHIE [id number] 05:35:00* Test Item Value Reference Range Interpretation Comments PHOSPHORUS (BEAKER) (test code = 604) 3.9 mg/dL 2.3-4.7 Quality Assurance Analyst ID - RITCHIE [id number] 05:35:00* Test Item Value Reference Range Interpretation Comments MAGNESIUM (BEAKER) (test code = 627) 1.8 mg/dL 1.6-2.6 Quality Assurance Analyst ID - RITCHIE MBASIC METABOLIC [id number] 05:35:00* Test Item Value Reference Range Interpretation Comments SODIUM (BEAKER) (test code = 381) 135 meq/L 136-145 L POTASSIUM (BEAKER) (test code = 379) 3.2 meq/L 3.5-5.1 L CHLORIDE (BEAKER) (test code = 382) 110 meq/L 98-107 H CO2 (BEAKER) (test code = 355) 19 meq/L 22-29 L BLOOD UREA NITROGEN (BEAKER) (test code = 354) 8 mg/dL 7-21 CREATININE (BEAKER) (test code = 358) 0.96 mg/dL 0.57-1.25 GLUCOSE RANDOM (BEAKER) (test code = 652) 86 mg/dL 70-105 CALCIUM (BEAKER) (test code = 697) 8.1 mg/dL 8.4-10.2 L EGFR (BEAKER) (test code = 1092) 80 mL/min/1.73 sq m ESTIMATED GFR IS NOT ACCURATE CREATININE CLEARANCE IN PREDICTING GLOMERULAR FILTRATION RATE. ESTIMATED GFR IS NOT APPLICABLE FOR DIALYSIS PATIENTS. Quality Assurance Analyst ID - RITCHIE MPROTHROMBIN TIME/[id number] 04:53:00* Test Item Value Reference Range Interpretation Comments PROTIME (BEAKER) (test code = 759) 17.0 seconds 11.9-14.2 H INR (BEAKER) (test code = 370) 1.4 <=5.9 Effective 08/24/2018: PT Reference Range ChangeNew: 11.9-14.2 Previous: 11.7-14. 7RECOMMENDED COUMADIN/WARFARIN INR THERAPY RANGESSTANDARD DOSE: 2.0-3.0 Include s: PROPHYLAXIS for venous thrombosis, systemic embolization; TREATMENT for venou s thrombosis and/or pulmonary embolus.HIGH RISK: Target INR is 2.5-3.5 for patie nts wiht mechanical heart valves.[id number] 04:53:00* Test Item Value Reference Range Interpretation Comments PARTIAL THROMBOPLASTIN TIME (BEAKER) (test code = 760) 38.3 seconds 22.5-36.0 H CBC (HEMOGRAM ONLY)2019-06-27 04:48:00* Test Item Value Reference Range Interpretation Comments WHITE BLOOD CELL COUNT (BEAKER) (test code = 775) 5.7 K/ L 3.5- 10.5 RED BLOOD CELL COUNT (BEAKER) (test code = 761) 2.85 M/ L 4.63-6 .08 L HEMOGLOBIN (BEAKER) (test code = 410) 8.6 GM/DL 13.7-17.5 L HEMATOCRIT (BEAKER) (test code = 411) 25.7 % 40.1-51.0 L MEAN CORPUSCULAR VOLUME (BEAKER) (test code = 753) 90.2 fL 79. 0-92.2 MEAN CORPUSCULAR HEMOGLOBIN (BEAKER) (test code = 751) 30.2 pg 25.7-32.2 MEAN CORPUSCULAR HEMOGLOBIN CONC (BEAKER) (test code = 752) 33.5 GM/DL 32.3-36.5 RED CELL DISTRIBUTION WIDTH (BEAKER) (test code = 412) 17.3 % 11.6-14.4 H PLATELET COUNT (BEAKER) (test code = 756) 276 K/CU MM 150-450 MEAN PLATELET VOLUME (BEAKER) (test code = 754) 9.2 fL 9.4-12 .4 L NUCLEATED RED BLOOD CELLS (BEAKER) (test code = 413) 0 /100 WBC 0 -0 POC-Glucose [id number] 08:55:00* Test Item Value Reference Range Interpretation Comments POC-Glucose Meter (test code = 1538) 71 mg/dL 70-110 : TESTED AT [facility] [address] [facility], [address]: Quality Assurance Analyst/Framing And Hanging ID = [id number] for JANICE BOSWELL Lab Interpretation (test code = 98393-1) [facility] [id number] 08:55:00* Test Item Value Reference Range Interpretation Comments POC-GLUCOSE METER (BEAKER) (test code = 1538) 71 mg/dL 70-110 : TESTED AT [facility] [address] [facility], [address]: Quality Assurance Analyst/Framing And Hanging ID = [id number] for JANICE BOSWELL [id number] 06:30:00* Test Item Value Reference Range Interpretation Comments PHOSPHORUS (BEAKER) (test code = 604) 3.9 mg/dL 2.3-4.7 Quality Assurance Analyst ID - RITCHIE [id number] 06:30:00* Test Item Value Reference Range Interpretation Comments MAGNESIUM (BEAKER) (test code = 627) 1.7 mg/dL 1.6-2.6 Quality Assurance Analyst ID - RITCHIE MBASIC METABOLIC [id number] 06:30:00* Test Item Value Reference Range Interpretation Comments SODIUM (BEAKER) (test code = 381) 134 meq/L 136-145 L POTASSIUM (BEAKER) (test code = 379) 3.1 meq/L 3.5-5.1 L CHLORIDE (BEAKER) (test code = 382) 109 meq/L 98-107 H CO2 (BEAKER) (test code = 355) 20 meq/L 22-29 L BLOOD UREA NITROGEN (BEAKER) (test code = 354) 8 mg/dL 7-21 CREATININE (BEAKER) (test code = 358) 0.97 mg/dL 0.57-1.25 GLUCOSE RANDOM (BEAKER) (test code = 652) 86 mg/dL 70-105 CALCIUM (BEAKER) (test code = 697) 8.2 mg/dL 8.4-10.2 L EGFR (BEAKER) (test code = 1092) 79 mL/min/1.73 sq m ESTIMATED GFR IS NOT ACCURATE CREATININE CLEARANCE IN PREDICTING GLOMERULAR FILTRATION RATE. ESTIMATED GFR IS NOT APPLICABLE FOR DIALYSIS PATIENTS. Quality Assurance Analyst ID - RITCHIE [id number] 06:11:00* Test Item Value Reference Range Interpretation Comments PARTIAL THROMBOPLASTIN TIME (BEAKER) (test code = 760) 34.2 seconds 22.5-36.0 PROTHROMBIN TIME/[id number] 06:10:00* Test Item Value Reference Range Interpretation Comments PROTIME (BEAKER) (test code = 759) 16.2 seconds 11.9-14.2 H INR (BEAKER) (test code = 370) 1.3 <=5.9 Effective 08/24/2018: PT Reference Range ChangeNew: 11.9-14.2 Previous: 11.7-14. 7RECOMMENDED COUMADIN/WARFARIN INR THERAPY RANGESSTANDARD DOSE: 2.0-3.0 Include s: PROPHYLAXIS for venous thrombosis, systemic embolization; TREATMENT for venou s thrombosis and/or pulmonary embolus.HIGH RISK: Target INR is 2.5-3.5 for patie nts wiht mechanical heart valves.CBC (HEMOGRAM ONLY)2019-06-26 05:59:00* Test Item Value Reference Range Interpretation Comments WHITE BLOOD CELL COUNT (BEAKER) (test code = 775) 6.9 K/ L 3.5- 10.5 RED BLOOD CELL COUNT (BEAKER) (test code = 761) 2.96 M/ L 4.63-6 .08 L HEMOGLOBIN (BEAKER) (test code = 410) 9.0 GM/DL 13.7-17.5 L HEMATOCRIT (BEAKER) (test code = 411) 27.1 % 40.1-51.0 L MEAN CORPUSCULAR VOLUME (BEAKER) (test code = 753) 91.6 fL 79. 0-92.2 MEAN CORPUSCULAR HEMOGLOBIN (BEAKER) (test code = 751) 30.4 pg 25.7-32.2 MEAN CORPUSCULAR HEMOGLOBIN CONC (BEAKER) (test code = 752) 33.2 GM/DL 32.3-36.5 RED CELL DISTRIBUTION WIDTH (BEAKER) (test code = 412) 17.6 % 11.6-14.4 H PLATELET COUNT (BEAKER) (test code = 756) 307 K/CU MM 150-450 MEAN PLATELET VOLUME (BEAKER) (test code = 754) 9.6 fL 9.4-12 .4 NUCLEATED RED BLOOD CELLS (BEAKER) (test code = 413) 0 /100 WBC 0 -0 POCT-GLUCOSE [id number] 21:12:00* Test Item Value Reference Range Interpretation Comments POC-GLUCOSE METER (BEAKER) (test code = 1538) 97 mg/dL 70-110 : TESTED AT [facility] [address] [facility], [address]: Quality Assurance Analyst/Framing And Hanging ID = [id number] for SUHA AQUINO III POCT-GLUCOSE [id number] 16:54:00* Test Item Value Reference Range Interpretation Comments POC-GLUCOSE METER (BEAKER) (test code = 1538) 83 mg/dL 70-110 : TESTED AT [place] [id number] [facility], [address]: Quality Assurance Analyst/Framing And Hanging ID = [id number] for Roberto Davalos POCT-GLUCOSE [id number] 08:10:00* Test Item Value Reference Range Interpretation Comments POC-GLUCOSE METER (BEAKER) (test code = 1538) 74 mg/dL 70-110 : TESTED AT [place] [id number] [facility], [address]: Quality Assurance Analyst/Framing And Hanging ID = [id number] for Roberto Davalos [id number] 06:15:00* Test Item Value Reference Range Interpretation Comments PHOSPHORUS (BEAKER) (test code = 604) 4.1 mg/dL 2.3-4.7 Quality Assurance Analyst ID - RITCHIE [id number] 06:15:00* Test Item Value Reference Range Interpretation Comments MAGNESIUM (BEAKER) (test code = 627) 1.7 mg/dL 1.6-2.6 Quality Assurance Analyst ID - RITCHIE MBASIC METABOLIC [id number] 06:15:00* Test Item Value Reference Range Interpretation Comments SODIUM (BEAKER) (test code = 381) 136 meq/L 136-145 POTASSIUM (BEAKER) (test code = 379) 3.2 meq/L 3.5-5.1 L CHLORIDE (BEAKER) (test code = 382) 111 meq/L 98-107 H CO2 (BEAKER) (test code = 355) 19 meq/L 22-29 L BLOOD UREA NITROGEN (BEAKER) (test code = 354) 8 mg/dL 7-21 CREATININE (BEAKER) (test code = 358) 0.99 mg/dL 0.57-1.25 GLUCOSE RANDOM (BEAKER) (test code = 652) 92 mg/dL 70-105 CALCIUM (BEAKER) (test code = 697) 8.1 mg/dL 8.4-10.2 L EGFR (BEAKER) (test code = 1092) 77 mL/min/1.73 sq m ESTIMATED GFR IS NOT ACCURATE CREATININE CLEARANCE IN PREDICTING GLOMERULAR FILTRATION RATE. ESTIMATED GFR IS NOT APPLICABLE FOR DIALYSIS PATIENTS. Quality Assurance Analyst ID - RITCHIE [id number] 06:05:00* Test Item Value Reference Range Interpretation Comments PARTIAL THROMBOPLASTIN TIME (BEAKER) (test code = 760) 39.0 seconds 22.5-36.0 H PROTHROMBIN [id number] 06:04:00* Test Item Value Reference Range Interpretation Comments PROTIME (BEAKER) (test code = 759) 16.1 seconds 11.9-14.2 H INR (BEAKER) (test code = 370) 1.3 <=5.9 Effective 08/24/2018: PT Reference Range ChangeNew: 11.9-14.2 Previous: 11.7-14. 7RECOMMENDED COUMADIN/WARFARIN INR THERAPY RANGESSTANDARD DOSE: 2.0-3.0 Include s: PROPHYLAXIS for venous thrombosis, systemic embolization; TREATMENT for venou s thrombosis and/or pulmonary embolus.HIGH RISK: Target INR is 2.5-3.5 for patie nts wiht mechanical heart valves.CBC (HEMOGRAM ONLY)2019-06-25 05:56:00* Test Item Value Reference Range Interpretation Comments WHITE BLOOD CELL COUNT (BEAKER) (test code = 775) 7.2 K/ L 3.5- 10.5 RED BLOOD CELL COUNT (BEAKER) (test code = 761) 2.93 M/ L 4.63-6 .08 L HEMOGLOBIN (BEAKER) (test code = 410) 8.8 GM/DL 13.7-17.5 L HEMATOCRIT (BEAKER) (test code = 411) 26.7 % 40.1-51.0 L MEAN CORPUSCULAR VOLUME (BEAKER) (test code = 753) 91.1 fL 79. 0-92.2 MEAN CORPUSCULAR HEMOGLOBIN (BEAKER) (test code = 751) 30.0 pg 25.7-32.2 MEAN CORPUSCULAR HEMOGLOBIN CONC (BEAKER) (test code = 752) 33.0 GM/DL 32.3-36.5 RED CELL DISTRIBUTION WIDTH (BEAKER) (test code = 412) 17.6 % 11.6-14.4 H PLATELET COUNT (BEAKER) (test code = 756) 305 K/CU MM 150-450 MEAN PLATELET VOLUME (BEAKER) (test code = 754) 9.7 fL 9.4-12 .4 NUCLEATED RED BLOOD CELLS (BEAKER) (test code = 413) 0 /100 WBC 0 -0 POCT-GLUCOSE [id number] 21:08:00* Test Item Value Reference Range Interpretation Comments POC-GLUCOSE METER (BEAKER) (test code = 1538) 92 mg/dL 70-110 : TESTED AT [address], [address]: Quality Assurance Analyst/Framing And Hanging ID = [id number] for MILES IIISUHA POCT-GLUCOSE [id number] 16:59:00* Test Item Value Reference Range Interpretation Comments POC-GLUCOSE METER (BEAKER) (test code = 1538) 102 mg/dL 70-110 : TESTED AT [address], [address]: Quality Assurance Analyst/Framing And Hanging ID = [id number] for CURRY, TIFFANIENDY POCT-GLUCOSE [id number] 12:35:00* Test Item Value Reference Range Interpretation Comments POC-GLUCOSE METER (BEAKER) (test code = 1538) 105 mg/dL 70-110 : TESTED AT [address], [address]: Quality Assurance Analyst/Framing And Hanging ID = [id number] for CURRY, ERANDY POCT-GLUCOSE [id number] 07:57:00* Test Item Value Reference Range Interpretation Comments POC-GLUCOSE METER (BEAKER) (test code = 1538) 94 mg/dL 70-110 : TESTED AT [address], [address]: Quality Assurance Analyst/Framing And Hanging ID = [id number] for CURRY, ERANDY BASIC METABOLIC [id number] 06:01:00* Test Item Value Reference Range Interpretation Comments SODIUM (BEAKER) (test code = 381) 134 meq/L 136-145 L POTASSIUM (BEAKER) (test code = 379) 3.3 meq/L 3.5-5.1 L CHLORIDE (BEAKER) (test code = 382) 112 meq/L 98-107 H CO2 (BEAKER) (test code = 355) 16 meq/L 22-29 L BLOOD UREA NITROGEN (BEAKER) (test code = 354) 8 mg/dL 7-21 CREATININE (BEAKER) (test code = 358) 1.02 mg/dL 0.57-1.25 GLUCOSE RANDOM (BEAKER) (test code = 652) 86 mg/dL 70-105 CALCIUM (BEAKER) (test code = 697) 7.8 mg/dL 8.4-10.2 L EGFR (BEAKER) (test code = 1092) 74 mL/min/1.73 sq m ESTIMATED GFR IS NOT ACCURATE CREATININE CLEARANCE IN PREDICTING GLOMERULAR FILTRATION RATE. ESTIMATED GFR IS NOT APPLICABLE FOR DIALYSIS PATIENTS. Quality Assurance Analyst ID Radha JARVIS [id number] 05:51:00* Test Item Value Reference Range Interpretation Comments PHOSPHORUS (BEAKER) (test code = 604) 3.4 mg/dL 2.3-4.7 Quality Assurance Analyst ID - MATHEUS [id number] 05:51:00* Test Item Value Reference Range Interpretation Comments MAGNESIUM (BEAKER) (test code = 627) 1.7 mg/dL 1.6-2.6 Quality Assurance Analyst ID - MATHEUS [id number] 05:24:00* Test Item Value Reference Range Interpretation Comments PARTIAL THROMBOPLASTIN TIME (BEAKER) (test code = 760) 38.9 seconds 22.5-36.0 H PROTHROMBIN TIME/[id number] 05:23:00* Test Item Value Reference Range Interpretation Comments PROTIME (BEAKER) (test code = 759) 16.3 seconds 11.9-14.2 H INR (BEAKER) (test code = 370) 1.4 <=5.9 Effective 08/24/2018: PT Reference Range ChangeNew: 11.9-14.2 Previous: 11.7-14. 7RECOMMENDED COUMADIN/WARFARIN INR THERAPY RANGESSTANDARD DOSE: 2.0-3.0 Include s: PROPHYLAXIS for venous thrombosis, systemic embolization; TREATMENT for venou s thrombosis and/or pulmonary embolus.HIGH RISK: Target INR is 2.5-3.5 for patie nts wiht mechanical heart valves.CBC (HEMOGRAM ONLY)2019-06-24 05:09:00* Test Item Value Reference Range Interpretation Comments WHITE BLOOD CELL COUNT (BEAKER) (test code = 775) 6.7 K/ L 3.5- 10.5 RED BLOOD CELL COUNT (BEAKER) (test code = 761) 2.74 M/ L 4.63-6 .08 L HEMOGLOBIN (BEAKER) (test code = 410) 8.3 GM/DL 13.7-17.5 L HEMATOCRIT (BEAKER) (test code = 411) 25.0 % 40.1-51.0 L MEAN CORPUSCULAR VOLUME (BEAKER) (test code = 753) 91.2 fL 79. 0-92.2 MEAN CORPUSCULAR HEMOGLOBIN (BEAKER) (test code = 751) 30.3 pg 25.7-32.2 MEAN CORPUSCULAR HEMOGLOBIN CONC (BEAKER) (test code = 752) 33.2 GM/DL 32.3-36.5 RED CELL DISTRIBUTION WIDTH (BEAKER) (test code = 412) 17.5 % 11.6-14.4 H PLATELET COUNT (BEAKER) (test code = 756) 276 K/CU MM 150-450 MEAN PLATELET VOLUME (BEAKER) (test code = 754) 9.8 fL 9.4-12 .4 NUCLEATED RED BLOOD CELLS (BEAKER) (test code = 413) 0 /100 WBC 0 -0 POCT-GLUCOSE [id number] 21:09:00* Test Item Value Reference Range Interpretation Comments POC-GLUCOSE METER (BEAKER) (test code = 1538) 96 mg/dL 70-110 : TESTED AT [address], [address]: Quality Assurance Analyst/Framing And Hanging ID = [id number] for TRANG ESCALERA Blood Culture - Routine (Right Venipuncture)2019-06-23 19:01:00* Test Item Value Reference Range Interpretation Comments Result (test code = 6463-4) No growth in 5 days [id number]:01:00* Test Item Value Reference Range Interpretation Comments CULTURE (BEAKER) (test code = 1095) No growth in 5 days BLOOD [id number] 19:01:00* Test Item Value Reference Range Interpretation Comments CULTURE (BEAKER) (test code = 1095) No growth in 5 days POCT-GLUCOSE [id number] 17:25:00* Test Item Value Reference Range Interpretation Comments POC-GLUCOSE METER (BEAKER) (test code = 1538) 102 mg/dL 70-110 : TESTED AT [facility] [address] [facility], [address]: Quality Assurance Analyst/Framing And Hanging ID = [id number] for Roberto Davalos [id number] 14:53:00* Test Item Value Reference Range Interpretation Comments POTASSIUM (BEAKER) (test code = 379) 3.6 meq/L 3.5-5.1 Quality Assurance Analyst ID - SOFIJOSE RAFAEL, KNEE, 1 OR 2 VIEWS, [id number] 11:25:00Reason for exam:->painFINAL REPORT TECHNIQUE: Frontal and lateral radiographs of the left knee dated 06/23/2019 HISTORY: Pain COMPARISON: None. FINDINGS:There is a total left knee arthroplasty with no evidence of hardware related complications. No fracture or dislocation. Bones are osteopenic. No suprapatellar joint effusion. No bone erosion or soft tissue nodule seen. No radiodense foreign body or subcutaneous emphysema. IMPRESSION:No fracture or dislocation. Total left knee arthroplasty. Signed: Adalberto Dallaseport Verified Date/Time: 06/23/2019 11:25:52 Reading Location: [address] Radiology Reading Room knee 1 or 2 views [id number] 11:25:00Interface, External Ris In - 06/23/2019 11:28 AM CDTFINAL REPORT TECHNIQUE: Frontal and lateral radiographs of the left knee dated 06/23/2019 HISTORY: Pain COMPARISON: None. FINDINGS:There is a total left knee arthroplasty with no evidence of hardware related complications. No fracture or dislocation. Bones are osteopenic. No suprapatellar joint effusion. No bone erosion or soft tissue nodule seen. No radiodense foreign body or subcutaneous emphysema. I MPRESSION:No fracture or dislocation. Total left knee arthroplasty. Signed: Adalberto Soria MDReport Verified Date/Time: 06/23/2019 11:25:52 Reading Locatio n: [facility] Radiology Reading Room [facility] [id number] 09:27:00* Test Item Value Reference Range Interpretation Comments POC-GLUCOSE METER (BEAKER) (test code = 1538) 88 mg/dL 70-110 : TESTED AT [address], [address]: Quality Assurance Analyst/Framing And Hanging ID = [id number] for Roberto Davalos [id number] 07:20:00* Test Item Value Reference Range Interpretation Comments PHOSPHORUS (BEAKER) (test code = 604) 3.2 mg/dL 2.3-4.7 Quality Assurance Analyst ID - SOFIGBASIC METABOLIC [id number] 06:14:00* Test Item Value Reference Range Interpretation Comments SODIUM (BEAKER) (test code = 381) 137 meq/L 136-145 POTASSIUM (BEAKER) (test code = 379) 3.2 meq/L 3.5-5.1 L CHLORIDE (BEAKER) (test code = 382) 114 meq/L 98-107 H CO2 (BEAKER) (test code = 355) 18 meq/L 22-29 L BLOOD UREA NITROGEN (BEAKER) (test code = 354) 10 mg/dL 7-21 CREATININE (BEAKER) (test code = 358) 1.07 mg/dL 0.57-1.25 GLUCOSE RANDOM (BEAKER) (test code = 652) 88 mg/dL 70-105 CALCIUM (BEAKER) (test code = 697) 7.7 mg/dL 8.4-10.2 L EGFR (BEAKER) (test code = 1092) 70 mL/min/1.73 sq m ESTIMATED GFR IS NOT ACCURATE CREATININE CLEARANCE IN PREDICTING GLOMERULAR FILTRATION RATE. ESTIMATED GFR IS NOT APPLICABLE FOR DIALYSIS PATIENTS. Quality Assurance Analyst ID - MATHEUS [id number] 06:04:00* Test Item Value Reference Range Interpretation Comments MAGNESIUM (BEAKER) (test code = 627) 1.8 mg/dL 1.6-2.6 Quality Assurance Analyst ID - MATHEUS [id number] 05:35:00* Test Item Value Reference Range Interpretation Comments PARTIAL THROMBOPLASTIN TIME (BEAKER) (test code = 760) 35.9 seconds 22.5-36.0 PROTHROMBIN TIME/[id number] 05:34:00* Test Item Value Reference Range Interpretation Comments PROTIME (BEAKER) (test code = 759) 16.6 seconds 11.9-14.2 H INR (BEAKER) (test code = 370) 1.4 <=5.9 Effective 08/24/2018: PT Reference Range ChangeNew: 11.9-14.2 Previous: 11.7-14. 7RECOMMENDED COUMADIN/WARFARIN INR THERAPY RANGESSTANDARD DOSE: 2.0-3.0 Include s: PROPHYLAXIS for venous thrombosis, systemic embolization; TREATMENT for venou s thrombosis and/or pulmonary embolus.HIGH RISK: Target INR is 2.5-3.5 for patie nts wiht mechanical heart valves.CBC (HEMOGRAM ONLY)2019-06-23 05:18:00* Test Item Value Reference Range Interpretation Comments WHITE BLOOD CELL COUNT (BEAKER) (test code = 775) 5.8 K/ L 3.5- 10.5 RED BLOOD CELL COUNT (BEAKER) (test code = 761) 2.90 M/ L 4.63-6 .08 L HEMOGLOBIN (BEAKER) (test code = 410) 8.3 GM/DL 13.7-17.5 L HEMATOCRIT (BEAKER) (test code = 411) 26.2 % 40.1-51.0 L MEAN CORPUSCULAR VOLUME (BEAKER) (test code = 753) 90.3 fL 79. 0-92.2 MEAN CORPUSCULAR HEMOGLOBIN (BEAKER) (test code = 751) 28.6 pg 25.7-32.2 MEAN CORPUSCULAR HEMOGLOBIN CONC (BEAKER) (test code = 752) 31.7 GM/DL 32.3-36.5 L RED CELL DISTRIBUTION WIDTH (BEAKER) (test code = 412) 17.5 % 11.6-14.4 H PLATELET COUNT (BEAKER) (test code = 756) 281 K/CU MM 150-450 MEAN PLATELET VOLUME (BEAKER) (test code = 754) 9.6 fL 9.4-12 .4 NUCLEATED RED BLOOD CELLS (BEAKER) (test code = 413) 0 /100 WBC 0 -0 Prepare Leuko-Red [id number] 23:54:00* Test Item Value Reference Range Interpretation Comments CROSSMATCH (test code = 2264) COMPATIBLE Unit ABO (test code = 9807879) O Pos UNIT NUMBER (test code = 934-0) [id number] Status (test code = 9732778) TX_TIMEINCHART Blood Bank Product (test code = 2263) RED BLOOD CELLS PRODUCT CODE (test code = 933-2) [id number] [id number] 21:44:00* Test Item Value Reference Range Interpretation Comments POTASSIUM (BEAKER) (test code = 379) 3.7 meq/L 3.5-5.1 Quality Assurance Analyst ID - DBPOCT-GLUCOSE [id number] 21:17:00* Test Item Value Reference Range Interpretation Comments POC-GLUCOSE METER (BEAKER) (test code = 1538) 104 mg/dL 70-110 : TESTED AT [address], [address]: Quality Assurance Analyst/Framing And Hanging ID = [id number] for TRANG ESCALERA BASIC METABOLIC [id number] 17:26:00* Test Item Value Reference Range Interpretation Comments SODIUM (BEAKER) (test code = 381) 136 meq/L 136-145 POTASSIUM (BEAKER) (test code = 379) 3.3 meq/L 3.5-5.1 L CHLORIDE (BEAKER) (test code = 382) 111 meq/L 98-107 H CO2 (BEAKER) (test code = 355) 19 meq/L 22-29 L BLOOD UREA NITROGEN (BEAKER) (test code = 354) 12 mg/dL 7-21 CREATININE (BEAKER) (test code = 358) 1.05 mg/dL 0.57-1.25 GLUCOSE RANDOM (BEAKER) (test code = 652) 81 mg/dL 70-105 CALCIUM (BEAKER) (test code = 697) 8.0 mg/dL 8.4-10.2 L EGFR (BEAKER) (test code = 1092) 72 mL/min/1.73 sq m ESTIMATED GFR IS NOT ACCURATE CREATININE CLEARANCE IN PREDICTING GLOMERULAR FILTRATION RATE. ESTIMATED GFR IS NOT APPLICABLE FOR DIALYSIS PATIENTS. Quality Assurance Analyst ID - DBPOCT-GLUCOSE [id number] 12:02:00* Test Item Value Reference Range Interpretation Comments POC-GLUCOSE METER (BEAKER) (test code = 1538) 91 mg/dL 70-110 : TESTED AT [facility] [address] [facility], [address]: Quality Assurance Analyst/Framing And Hanging ID = [id number] for JAMAL AMOR POCT-GLUCOSE [id number] 10:02:00* Test Item Value Reference Range Interpretation Comments POC-GLUCOSE METER (BEAKER) (test code = 1538) 99 mg/dL 70-110 : TESTED AT [facility] [address] [facility], [address]: Quality Assurance Analyst/Framing And Hanging ID = [id number] for JAMAL AMOR BASIC METABOLIC [id number] 07:49:00* Test Item Value Reference Range Interpretation Comments SODIUM (BEAKER) (test code = 381) 137 meq/L 136-145 POTASSIUM (BEAKER) (test code = 379) 3.1 meq/L 3.5-5.1 L CHLORIDE (BEAKER) (test code = 382) 113 meq/L 98-107 H CO2 (BEAKER) (test code = 355) 19 meq/L 22-29 L BLOOD UREA NITROGEN (BEAKER) (test code = 354) 12 mg/dL 7-21 CREATININE (BEAKER) (test code = 358) 1.03 mg/dL 0.57-1.25 GLUCOSE RANDOM (BEAKER) (test code = 652) 84 mg/dL 70-105 CALCIUM (BEAKER) (test code = 697) 7.6 mg/dL 8.4-10.2 L EGFR (BEAKER) (test code = 1092) 74 mL/min/1.73 sq m ESTIMATED GFR IS NOT ACCURATE CREATININE CLEARANCE IN PREDICTING GLOMERULAR FILTRATION RATE. ESTIMATED GFR IS NOT APPLICABLE FOR DIALYSIS PATIENTS. Quality Assurance Analyst ID - RITCHIE [id number] 07:40:00* Test Item Value Reference Range Interpretation Comments PARTIAL THROMBOPLASTIN TIME (BEAKER) (test code = 760) 35.0 seconds 22.5-36.0 PROTHROMBIN TIME/[id number] 07:39:00* Test Item Value Reference Range Interpretation Comments PROTIME (BEAKER) (test code = 759) 17.3 seconds 11.9-14.2 H INR (BEAKER) (test code = 370) 1.5 <=5.9 Effective 08/24/2018: PT Reference Range ChangeNew: 11.9-14.2 Previous: 11.7-14. 7RECOMMENDED COUMADIN/WARFARIN INR THERAPY RANGESSTANDARD DOSE: 2.0-3.0 Include s: PROPHYLAXIS for venous thrombosis, systemic embolization; TREATMENT for venou s thrombosis and/or pulmonary embolus.HIGH RISK: Target INR is 2.5-3.5 for patie nts wiht mechanical heart valves.[id number] 07:35:00* Test Item Value Reference Range Interpretation Comments MAGNESIUM (BEAKER) (test code = 627) 2.1 mg/dL 1.6-2.6 Quality Assurance Analyst ID - RITCHIE MCBC (HEMOGRAM ONLY)2019-06-22 07:17:00* Test Item Value Reference Range Interpretation Comments WHITE BLOOD CELL COUNT (BEAKER) (test code = 775) 7.5 K/ L 3.5- 10.5 RED BLOOD CELL COUNT (BEAKER) (test code = 761) 2.82 M/ L 4.63-6 .08 L HEMOGLOBIN (BEAKER) (test code = 410) 8.5 GM/DL 13.7-17.5 L HEMATOCRIT (BEAKER) (test code = 411) 25.1 % 40.1-51.0 L MEAN CORPUSCULAR VOLUME (BEAKER) (test code = 753) 89.0 fL 79. 0-92.2 MEAN CORPUSCULAR HEMOGLOBIN (BEAKER) (test code = 751) 30.1 pg 25.7-32.2 MEAN CORPUSCULAR HEMOGLOBIN CONC (BEAKER) (test code = 752) 33.9 GM/DL 32.3-36.5 RED CELL DISTRIBUTION WIDTH (BEAKER) (test code = 412) 17.5 % 11.6-14.4 H PLATELET COUNT (BEAKER) (test code = 756) 269 K/CU MM 150-450 MEAN PLATELET VOLUME (BEAKER) (test code = 754) 9.5 fL 9.4-12 .4 NUCLEATED RED BLOOD CELLS (BEAKER) (test code = 413) 0 /100 WBC 0 -0 [id number] 21:34:00* Test Item Value Reference Range Interpretation Comments MAGNESIUM (BEAKER) (test code = 627) 1.7 mg/dL 1.6-2.6 Quality Assurance Analyst ID - BSPOCT-GLUCOSE [id number] 21:18:00* Test Item Value Reference Range Interpretation Comments POC-GLUCOSE METER (BEAKER) (test code = 1538) 77 mg/dL 70-110 : TESTED AT [place] [id number] [facility], [address]: Quality Assurance Analyst/Framing And Hanging ID = [id number] for Janice Kiran BASIC METABOLIC [id number] 21:04:00* Test Item Value Reference Range Interpretation Comments SODIUM (BEAKER) (test code = 381) 137 meq/L 136-145 POTASSIUM (BEAKER) (test code = 379) 2.7 meq/L 3.5-5.1 L CHLORIDE (BEAKER) (test code = 382) 111 meq/L 98-107 H CO2 (BEAKER) (test code = 355) 19 meq/L 22-29 L BLOOD UREA NITROGEN (BEAKER) (test code = 354) 12 mg/dL 7-21 CREATININE (BEAKER) (test code = 358) 1.04 mg/dL 0.57-1.25 GLUCOSE RANDOM (BEAKER) (test code = 652) 87 mg/dL 70-105 CALCIUM (BEAKER) (test code = 697) 7.6 mg/dL 8.4-10.2 L EGFR (BEAKER) (test code = 1092) 73 mL/min/1.73 sq m ESTIMATED GFR IS NOT ACCURATE CREATININE CLEARANCE IN PREDICTING GLOMERULAR FILTRATION RATE. ESTIMATED GFR IS NOT APPLICABLE FOR DIALYSIS PATIENTS. Quality Assurance Analyst ID - BSPOCT-GLUCOSE [id number] 16:13:00* Test Item Value Reference Range Interpretation Comments POC-GLUCOSE METER (BEAKER) (test code = 1538) 94 mg/dL 70-110 : TESTED AT [place] [id number] [facility], [address]: Quality Assurance Analyst/Framing And Hanging ID = [id number] for JAMAL AMOR BASIC METABOLIC [id number] 14:23:00* Test Item Value Reference Range Interpretation Comments SODIUM (BEAKER) (test code = 381) 137 meq/L 136-145 POTASSIUM (BEAKER) (test code = 379) 2.7 meq/L 3.5-5.1 L CHLORIDE (BEAKER) (test code = 382) 110 meq/L 98-107 H CO2 (BEAKER) (test code = 355) 19 meq/L 22-29 L BLOOD UREA NITROGEN (BEAKER) (test code = 354) 14 mg/dL 7-21 CREATININE (BEAKER) (test code = 358) 1.04 mg/dL 0.57-1.25 GLUCOSE RANDOM (BEAKER) (test code = 652) 91 mg/dL 70-105 CALCIUM (BEAKER) (test code = 697) 7.7 mg/dL 8.4-10.2 L EGFR (BEAKER) (test code = 1092) 73 mL/min/1.73 sq m ESTIMATED GFR IS NOT ACCURATE CREATININE CLEARANCE IN PREDICTING GLOMERULAR FILTRATION RATE. ESTIMATED GFR IS NOT APPLICABLE FOR DIALYSIS PATIENTS. Quality Assurance Analyst ID - CHELITA FPOCT-GLUCOSE [id number] 12:21:00* Test Item Value Reference Range Interpretation Comments POC-GLUCOSE METER (HOLLIS) (test code = 1538) 90 mg/dL 70-110 : TESTED AT [facility] [address] [facility], [id number]: Quality Assurance Analyst/Framing And Hanging ID = [id number] for JAMAL AMOR POCT-GLUCOSE [id number] 08:02:00* Test Item Value Reference Range Interpretation Comments POC-GLUCOSE METER (HOLLIS) (test code = 1538) 72 mg/dL 70-110 : TESTED AT [facility] [address] [facility], [id number]: Quality Assurance Analyst/Framing And Hanging ID = [id number] for JAMAL AMOR [id number] 07:01:00* Test Item Value Reference Range Interpretation Comments PARTIAL THROMBOPLASTIN TIME (BEAKER) (test code = 760) 36.9 seconds 22.5-36.0 H PROTHROMBIN TIME/[id number] 07:00:00* Test Item Value Reference Range Interpretation Comments PROTIME (BEAKER) (test code = 759) 17.2 seconds 11.9-14.2 H INR (BEAKER) (test code = 370) 1.4 <=5.9 Effective 08/24/2018: PT Reference Range ChangeNew: 11.9-14.2 Previous: 11.7-14. 7RECOMMENDED COUMADIN/WARFARIN INR THERAPY RANGESSTANDARD DOSE: 2.0-3.0 Include s: PROPHYLAXIS for venous thrombosis, systemic embolization; TREATMENT for venou s thrombosis and/or pulmonary embolus.HIGH RISK: Target INR is 2.5-3.5 for vero santana mechanical heart valves.BASIC METABOLIC [id number] 06:52:00* Test Item Value Reference Range Interpretation Comments SODIUM (BEAKER) (test code = 381) 139 meq/L 136-145 POTASSIUM (BEAKER) (test code = 379) 2.5 meq/L 3.5-5.1 LL CHLORIDE (BEAKER) (test code = 382) 111 meq/L 98-107 H CO2 (BEAKER) (test code = 355) 20 meq/L 22-29 L BLOOD UREA NITROGEN (BEAKER) (test code = 354) 17 mg/dL 7-21 CREATININE (BEAKER) (test code = 358) 1.02 mg/dL 0.57-1.25 GLUCOSE RANDOM (BEAKER) (test code = 652) 80 mg/dL 70-105 CALCIUM (BEAKER) (test code = 697) 7.7 mg/dL 8.4-10.2 L EGFR (BEAKER) (test code = 1092) 74 mL/min/1.73 sq m ESTIMATED GFR IS NOT ACCURATE CREATININE CLEARANCE IN PREDICTING GLOMERULAR FILTRATION RATE. ESTIMATED GFR IS NOT APPLICABLE FOR DIALYSIS PATIENTS. Quality Assurance Analyst ID Radha MERLOS [id number] 06:51:00* Test Item Value Reference Range Interpretation Comments MAGNESIUM (BEAKER) (test code = 627) 1.6 mg/dL 1.6-2.6 Quality Assurance Analyst ID Radha MERLOS FCBC (HEMOGRAM ONLY)2019-06-21 06:26:00* Test Item Value Reference Range Interpretation Comments WHITE BLOOD CELL COUNT (BEAKER) (test code = 775) 8.3 K/ L 3.5- 10.5 RED BLOOD CELL COUNT (BEAKER) (test code = 761) 2.42 M/ L 4.63-6 .08 L HEMOGLOBIN (BEAKER) (test code = 410) 7.3 GM/DL 13.7-17.5 L HEMATOCRIT (BEAKER) (test code = 411) 22.0 % 40.1-51.0 L MEAN CORPUSCULAR VOLUME (BEAKER) (test code = 753) 90.9 fL 79. 0-92.2 MEAN CORPUSCULAR HEMOGLOBIN (BEAKER) (test code = 751) 30.2 pg 25.7-32.2 MEAN CORPUSCULAR HEMOGLOBIN CONC (BEAKER) (test code = 752) 33.2 GM/DL 32.3-36.5 RED CELL DISTRIBUTION WIDTH (BEAKER) (test code = 412) 16.0 % 11.6-14.4 H PLATELET COUNT (BEAKER) (test code = 756) 282 K/CU MM 150-450 MEAN PLATELET VOLUME (BEAKER) (test code = 754) 10.4 fL 9.4-12 .4 NUCLEATED RED BLOOD CELLS (BEAKER) (test code = 413) 0 /100 WBC 0 -0 POCT-GLUCOSE [id number] 21:32:00* Test Item Value Reference Range Interpretation Comments POC-GLUCOSE METER (BEAKER) (test code = 1538) 71 mg/dL 70-110 : TESTED AT [address], [address]: Quality Assurance Analyst/Framing And Hanging ID = [id number] for MILES JIMENEZ SUHA BASIC METABOLIC [id number] 21:25:00* Test Item Value Reference Range Interpretation Comments SODIUM (BEAKER) (test code = 381) 139 meq/L 136-145 POTASSIUM (BEAKER) (test code = 379) 2.4 meq/L 3.5-5.1 LL CHLORIDE (BEAKER) (test code = 382) 110 meq/L 98-107 H CO2 (BEAKER) (test code = 355) 19 meq/L 22-29 L BLOOD UREA NITROGEN (BEAKER) (test code = 354) 20 mg/dL 7-21 CREATININE (BEAKER) (test code = 358) 1.19 mg/dL 0.57-1.25 GLUCOSE RANDOM (BEAKER) (test code = 652) 80 mg/dL 70-105 CALCIUM (BEAKER) (test code = 697) 7.9 mg/dL 8.4-10.2 L EGFR (BEAKER) (test code = 1092) 62 mL/min/1.73 sq m ESTIMATED GFR IS NOT ACCURATE CREATININE CLEARANCE IN PREDICTING GLOMERULAR FILTRATION RATE. ESTIMATED GFR IS NOT APPLICABLE FOR DIALYSIS PATIENTS. Quality Assurance Analyst ID - [id number] 21:20:00* Test Item Value Reference Range Interpretation Comments PHOSPHORUS (BEAKER) (test code = 604) 2.4 mg/dL 2.3-4.7 Quality Assurance Analyst ID - [id number] 21:20:00* Test Item Value Reference Range Interpretation Comments MAGNESIUM (BEAKER) (test code = 627) 1.8 mg/dL 1.6-2.6 Quality Assurance Analyst ID - BSPOCT-GLUCOSE [id number] 16:13:00* Test Item Value Reference Range Interpretation Comments POC-GLUCOSE METER (BEAKER) (test code = 1538) 78 mg/dL 70-110 : TESTED AT [facility] [address] [facility] [place], [address]: Quality Assurance Analyst/Framing And Hanging ID = [id number] for Darlyn Brandt CBC with platelet count + automated [id number] 14:21:00* Test Item Value Reference Range Interpretation Comments WBC (test code = 6690-2) 7.5 3.5- 10.5 K/L RBC (test code = 789-8) 2.55 4.63- 6.08 M/L L MCHC (test code = 786-4) 33.2 32.3- 36.5 GM/DL L Hematocrit (test code = 4544-3) 23.5 % 40.1-51 L MCV (test code = 787-2) 92.2 fL 79-92.2 MCH (test code = 785-6) 30.6 pg 25.7-32.2 RDW (test code = 788-0) 16.0 % 11.6-14.4 H Platelets (test code = 777-3) 269 150- 450 K/CU MM MPV (test code = 07288-1) 9.7 fL 9.4-12.4 nRBC (test code = 413) 0 0- 0 /100 WBC % Neutros (test code = 429) 72 % % Lymphs (test code = 430) 16 % % Monos (test code = 431) 9 % % Eos (test code = 432) 3 % % Baso (test code = 437) 1 % # Neutros (test code = 670) 5.39 1.78- 5.38 K/L H # Lymphs (test code = 414) 1.17 1.32- 3.57 K/L L # Monos (test code = 415) 0.64 0.30- 0.82 K/L # Eos (test code = 416) 0.23 0.04- 0.54 K/L # Baso (test code = 417) 0.05 0.01- 0.08 K/L Immature Granulocytes-Relative (test code = 2801) 1 % 0-1 Lab Interpretation (test code = 40026-7) Abnormal [facility] W/PLT COUNT & AUTO [id number] 14:21:00* Test Item Value Reference Range Interpretation Comments WHITE BLOOD CELL COUNT (BEAKER) (test code = 775) 7.5 K/ L 3.5- 10.5 RED BLOOD CELL COUNT (BEAKER) (test code = 761) 2.55 M/ L 4.63-6 .08 L HEMOGLOBIN (BEAKER) (test code = 410) 7.8 GM/DL 13.7-17.5 L HEMATOCRIT (BEAKER) (test code = 411) 23.5 % 40.1-51.0 L MEAN CORPUSCULAR VOLUME (BEAKER) (test code = 753) 92.2 fL 79. 0-92.2 MEAN CORPUSCULAR HEMOGLOBIN (BEAKER) (test code = 751) 30.6 pg 25.7-32.2 MEAN CORPUSCULAR HEMOGLOBIN CONC (BEAKER) (test code = 752) 33.2 GM/DL 32.3-36.5 RED CELL DISTRIBUTION WIDTH (BEAKER) (test code = 412) 16.0 % 11.6-14.4 H PLATELET COUNT (BEAKER) (test code = 756) 269 K/CU MM 150-450 MEAN PLATELET VOLUME (BEAKER) (test code = 754) 9.7 fL 9.4-12 .4 NUCLEATED RED BLOOD CELLS (BEAKER) (test code = 413) 0 /100 WBC 0 -0 NEUTROPHILS RELATIVE PERCENT (BEAKER) (test code = 429) 72 % LYMPHOCYTES RELATIVE PERCENT (BEAKER) (test code = 430) 16 % MONOCYTES RELATIVE PERCENT (BEAKER) (test code = 431) 9 % EOSINOPHILS RELATIVE PERCENT (BEAKER) (test code = 432) 3 % BASOPHILS RELATIVE PERCENT (BEAKER) (test code = 437) 1 % NEUTROPHILS ABSOLUTE COUNT (BEAKER) (test code = 670) 5.39 K/ L 1.78-5.38 H LYMPHOCYTES ABSOLUTE COUNT (BEAKER) (test code = 414) 1.17 K/ L 1.32-3.57 L MONOCYTES ABSOLUTE COUNT (BEAKER) (test code = 415) 0.64 K/ L 0. 30-0.82 EOSINOPHILS ABSOLUTE COUNT (BEAKER) (test code = 416) 0.23 K/ L 0.04-0.54 BASOPHILS ABSOLUTE COUNT (BEAKER) (test code = 417) 0.05 K/ L 0. 01-0.08 IMMATURE GRANULOCYTES-RELATIVE PERCENT (BEAKER) (test code = 2801) 1 % 0-1 POCT-GLUCOSE [id number] 11:57:00* Test Item Value Reference Range Interpretation Comments POC-GLUCOSE METER (BEAKER) (test code = 1538) 81 mg/dL 70-110 : TESTED AT [facility] [address] [facility] [place], [address]: Quality Assurance Analyst/Framing And Hanging ID = [id number] for Darlyn Brandt RAD, ABDOMEN/KUB, 1 VIEW [id number] 11:49:00Reason for exam:->bowel obstructionShould this be performed at the bedside?->YesFINAL REPORT RAD, ABDOMEN/KUB, 1 VIEW AP CLINICAL INDICATION: bowel obstruction COMPARISON: June 18, 2019 TECHNIQUE: Three frontal radiographs of the abdomen. IMPRESSION: The bowel gas pattern demonstrates diffuse gaseous distention of small and large bowel loops. Persistent moderate to large colonic stool burden as mixed without contrast. No visible pneumatosis. The regional skeleton is intact. Signed: JR Kingsley Robert MDReport Verified Da te/Time: 06/20/2019 11:49:29 Reading Location: [facility] Radiology Reading Room C METABOLIC [id number] 08:56:00* Test Item Value Reference Range Interpretation Comments SODIUM (BEAKER) (test code = 381) 143 meq/L 136-145 POTASSIUM (BEAKER) (test code = 379) 2.4 meq/L 3.5-5.1 LL CHLORIDE (BEAKER) (test code = 382) 114 meq/L 98-107 H CO2 (BEAKER) (test code = 355) 20 meq/L 22-29 L BLOOD UREA NITROGEN (BEAKER) (test code = 354) 24 mg/dL 7-21 H CREATININE (BEAKER) (test code = 358) 1.30 mg/dL 0.57-1.25 H GLUCOSE RANDOM (BEAKER) (test code = 652) 78 mg/dL 70-105 CALCIUM (BEAKER) (test code = 697) 8.0 mg/dL 8.4-10.2 L EGFR (BEAKER) (test code = 1092) 56 mL/min/1.73 sq m ESTIMATED GFR IS NOT ACCURATE CREATININE CLEARANCE IN PREDICTING GLOMERULAR FILTRATION RATE. ESTIMATED GFR IS NOT APPLICABLE FOR DIALYSIS PATIENTS. Quality Assurance Analyst ID - EMERSONPOCT-GLUCOSE [id number] 08:11:00* Test Item Value Reference Range Interpretation Comments POC-GLUCOSE METER (BEAKER) (test code = 1538) 72 mg/dL 70-110 : TESTED AT [facility] [address] [facility], [address]: Quality Assurance Analyst/Framing And Hanging ID = [id number] for Darlyn Brandt [id number] 02:23:00* Test Item Value Reference Range Interpretation Comments PARTIAL THROMBOPLASTIN TIME (BEAKER) (test code = 760) 37.7 seconds 22.5-36.0 H PROTHROMBIN TIME/[id number] 02:22:00* Test Item Value Reference Range Interpretation Comments PROTIME (BEAKER) (test code = 759) 17.6 seconds 11.9-14.2 H INR (BEAKER) (test code = 370) 1.5 <=5.9 Effective 08/24/2018: PT Reference Range ChangeNew: 11.9-14.2 Previous: 11.7-14. 7RECOMMENDED COUMADIN/WARFARIN INR THERAPY RANGESSTANDARD DOSE: 2.0-3.0 Include s: PROPHYLAXIS for venous thrombosis, systemic embolization; TREATMENT for venou s thrombosis and/or pulmonary embolus.HIGH RISK: Target INR is 2.5-3.5 for patie nts wiht mechanical heart valves.BASIC METABOLIC [id number] 02:10:00* Test Item Value Reference Range Interpretation Comments SODIUM (BEAKER) (test code = 381) 146 meq/L 136-145 H POTASSIUM (BEAKER) (test code = 379) 2.4 meq/L 3.5-5.1 LL CHLORIDE (BEAKER) (test code = 382) 114 meq/L 98-107 H CO2 (BEAKER) (test code = 355) 20 meq/L 22-29 L BLOOD UREA NITROGEN (BEAKER) (test code = 354) 25 mg/dL 7-21 H CREATININE (BEAKER) (test code = 358) 1.43 mg/dL 0.57-1.25 H GLUCOSE RANDOM (BEAKER) (test code = 652) 74 mg/dL 70-105 CALCIUM (BEAKER) (test code = 697) 8.1 mg/dL 8.4-10.2 L EGFR (BEAKER) (test code = 1092) 50 mL/min/1.73 sq m ESTIMATED GFR IS NOT ACCURATE CREATININE CLEARANCE IN PREDICTING GLOMERULAR FILTRATION RATE. ESTIMATED GFR IS NOT APPLICABLE FOR DIALYSIS PATIENTS. Quality Assurance Analyst ID - RITCHIE [id number] 01:52:00* Test Item Value Reference Range Interpretation Comments MAGNESIUM (BEAKER) (test code = 627) 1.7 mg/dL 1.6-2.6 Quality Assurance Analyst ID - RITCHIE [facility]BC (HEMOGRAM ONLY)2019-06-20 01:30:00* Test Item Value Reference Range Interpretation Comments WHITE BLOOD CELL COUNT (BEAKER) (test code = 775) 10.5 K/ L 3.5- 10.5 RED BLOOD CELL COUNT (BEAKER) (test code = 761) 2.64 M/ L 4.63-6 .08 L HEMOGLOBIN (BEAKER) (test code = 410) 8.1 GM/DL 13.7-17.5 L HEMATOCRIT (BEAKER) (test code = 411) 24.4 % 40.1-51.0 L MEAN CORPUSCULAR VOLUME (BEAKER) (test code = 753) 92.4 fL 79. 0-92.2 H MEAN CORPUSCULAR HEMOGLOBIN (BEAKER) (test code = 751) 30.7 pg 25.7-32.2 MEAN CORPUSCULAR HEMOGLOBIN CONC (BEAKER) (test code = 752) 33.2 GM/DL 32.3-36.5 RED CELL DISTRIBUTION WIDTH (BEAKER) (test code = 412) 16.0 % 11.6-14.4 H PLATELET COUNT (BEAKER) (test code = 756) 293 K/CU MM 150-450 MEAN PLATELET VOLUME (BEAKER) (test code = 754) 10.1 fL 9.4-12 .4 NUCLEATED RED BLOOD CELLS (BEAKER) (test code = 413) 0 /100 WBC 0 -0 BASIC METABOLIC [id number] 16:26:00* Test Item Value Reference Range Interpretation Comments SODIUM (BEAKER) (test code = 381) 145 meq/L 136-145 POTASSIUM (BEAKER) (test code = 379) 2.5 meq/L 3.5-5.1 LL CHLORIDE (BEAKER) (test code = 382) 114 meq/L 98-107 H CO2 (BEAKER) (test code = 355) 23 meq/L 22-29 BLOOD UREA NITROGEN (BEAKER) (test code = 354) 28 mg/dL 7-21 H CREATININE (BEAKER) (test code = 358) 1.48 mg/dL 0.57-1.25 H GLUCOSE RANDOM (BEAKER) (test code = 652) 80 mg/dL 70-105 CALCIUM (BEAKER) (test code = 697) 8.2 mg/dL 8.4-10.2 L EGFR (BEAKER) (test code = 1092) 48 mL/min/1.73 sq m ESTIMATED GFR IS NOT ACCURATE CREATININE CLEARANCE IN PREDICTING GLOMERULAR FILTRATION RATE. ESTIMATED GFR IS NOT APPLICABLE FOR DIALYSIS PATIENTS. Quality Assurance Analyst ID - BSBASIC METABOLIC [id number] 13:57:00* Test Item Value Reference Range Interpretation Comments SODIUM (BEAKER) (test code = 381) 145 meq/L 136-145 POTASSIUM (BEAKER) (test code = 379) 2.9 meq/L 3.5-5.1 L CHLORIDE (BEAKER) (test code = 382) 114 meq/L 98-107 H CO2 (BEAKER) (test code = 355) 20 meq/L 22-29 L BLOOD UREA NITROGEN (BEAKER) (test code = 354) 31 mg/dL 7-21 H CREATININE (BEAKER) (test code = 358) 1.62 mg/dL 0.57-1.25 H GLUCOSE RANDOM (BEAKER) (test code = 652) 78 mg/dL 70-105 CALCIUM (BEAKER) (test code = 697) 8.0 mg/dL 8.4-10.2 L EGFR (BEAKER) (test code = 1092) 44 mL/min/1.73 sq m ESTIMATED GFR IS NOT ACCURATE CREATININE CLEARANCE IN PREDICTING GLOMERULAR FILTRATION RATE. ESTIMATED GFR IS NOT APPLICABLE FOR DIALYSIS PATIENTS. Quality Assurance Analyst ID - [id number] 13:57:00* Test Item Value Reference Range Interpretation Comments MAGNESIUM (BEAKER) (test code = 627) 2.2 mg/dL 1.6-2.6 Quality Assurance Analyst ID - FAISALECG 12 [id number] 13:42:28Interface, External Ris In - 06/19/2019 1:42 PM CDTVentricular Rate 88 BPMAtrial Rate 88 BPMP-R Interval 148 msQRS Duration 100 msQ-T Interval 398 msQTC Calculation(Bazett) 481 msP Dike 56 degreesR Dike -3 degreesT Dike 87 degreesNormal sinus rhythmProlonged QTAbnormal ECG18 JUN 2019 17:29PVCs no longer seenConfirmed by MD MATT, [facility] ([id number]) on 06/19/2019 1:42:23 [facility] 2019-06-19 09:25:00* Test Item Value Reference Range Interpretation Comments Ammonia (test code = 65063-2) 34 18- 72 mol/L MAVERICK (test code = MAVERICK) Quality Assurance Analyst ID - FAISAL Lab Interpretation (test code = 72750-7) Normal [facility]2020-03-23 09:25:00* Test Item Value Reference Range Interpretation Comments AMMONIA (BEAKER) (test code = 348) 34 mol/L 18-72 Quality Assurance Analyst ID - [id number] Echo W/Doppler(CW/PW/Color)2019-06-19 09:05:24Ejection FractionSLEH ECHO HEARTLAB MKCKESSON CPACSInterface, External Ris In - 06/19/2019 9:17 AM CDTTransthoracic Echocardiography Report (TTE) Demographics Patient Name [place] BRYAN Date of Study 06/18/2019 E Gender Male Visit Number 2 [id number] Race Unknown Davida Number [id number] Number Date of 1960 Referring Physici an Age 58 year(s) Control Officer Manager Abed Josh Interpreting Nestor Roberts Physician Procedure Type of Study TTE procedure :2DECHO W DOPPLER(CW/PW/COLOR) (STAT) Indications:Hypotension or hemodynamic ins tability.Clinical HistoryHGB 8.7HCT 26.4 %Contrast Medium: Definity. Amount - 2 mlHeight: 77 inches Weight: 126.55 kg (279 lbs) BSA: 2.58 m^2 BMI: 33.08kg/m^2HR : 95 bpm BP: 83/59 mmHg Summary The left ventricle is chamber size (by PSLAX dim ension) is normal (male - LVIDd 4.2-5.8cm) . All of the LV segments contract nor marlen . Estimated LVEF by qualitative assessment is normal (>60%) . Aortic root size (Sinus of Valsalva diameter) is moderately dilated. 4.4 cm Estimated peak systolic PA pressure is 30-35 mmHg + RA pressure. Signature Findings Left Ventricle The left ventricle is chamber size (by PSLAX dimension) is normal (male - LVIDd 4.2-5.8cm) . No rmal LV wall thickness. All of the LV segments contract n ormally . Estimated LVEF by qualitative assessment is nor mal (>60%) . Left Atrium LA size is [...] Velocity: 2.66 m/s TR Gradient: 28.36 mmHg [facility] Hemoglobin [id number] 08:50:00* Test Item Value Reference Range Interpretation Comments Hemoglobin A1C (test code = 4548-4) 5.8 % 4.3-6.1 Lab Interpretation (test code = 69248-6) Normal [facility] [id number] 08:50:00* Test Item Value Reference Range Interpretation Comments HEMOGLOBIN A1C (BEAKER) (test code = 368) 5.8 % 4.3-6.1 [id number] 05:52:00* Test Item Value Reference Range Interpretation Comments THYROID STIMULATING HORMONE (BEAKER) (test code = 772) 25.62 uIU/mL 0.35-4.94 H Quality Assurance Analyst ID - PIAYA [id number] 05:17:00* Test Item Value Reference Range Interpretation Comments PHOSPHORUS (BEAKER) (test code = 604) 3.5 mg/dL 2.3-4.7 Quality Assurance Analyst ID - MATHEUS [id number] 05:17:00* Test Item Value Reference Range Interpretation Comments MAGNESIUM (BEAKER) (test code = 627) 2.1 mg/dL 1.6-2.6 Quality Assurance Analyst ID Radha JARVIS LBASIC METABOLIC [id number] 05:17:00* Test Item Value Reference Range Interpretation Comments SODIUM (BEAKER) (test code = 381) 144 meq/L 136-145 POTASSIUM (BEAKER) (test code = 379) 3.1 meq/L 3.5-5.1 L CHLORIDE (BEAKER) (test code = 382) 113 meq/L 98-107 H CO2 (BEAKER) (test code = 355) 20 meq/L 22-29 L BLOOD UREA NITROGEN (BEAKER) (test code = 354) 31 mg/dL 7-21 H CREATININE (BEAKER) (test code = 358) 1.60 mg/dL 0.57-1.25 H GLUCOSE RANDOM (BEAKER) (test code = 652) 82 mg/dL 70-105 CALCIUM (BEAKER) (test code = 697) 8.1 mg/dL 8.4-10.2 L EGFR (BEAKER) (test code = 1092) 44 mL/min/1.73 sq m ESTIMATED GFR IS NOT ACCURATE CREATININE CLEARANCE IN PREDICTING GLOMERULAR FILTRATION RATE. ESTIMATED GFR IS NOT APPLICABLE FOR DIALYSIS PATIENTS. Quality Assurance Analyst ID Radha JARVIS [id number] 04:54:00* Test Item Value Reference Range Interpretation Comments PARTIAL THROMBOPLASTIN TIME (BEAKER) (test code = 760) 33.5 seconds 22.5-36.0 PROTHROMBIN TIME/[id number] 04:53:00* Test Item Value Reference Range Interpretation Comments PROTIME (BEAKER) (test code = 759) 17.6 seconds 11.9-14.2 H INR (BEAKER) (test code = 370) 1.5 <=5.9 Effective 08/24/2018: PT Reference Range ChangeNew: 11.9-14.2 Previous: 11.7-14. 7RECOMMENDED COUMADIN/WARFARIN INR THERAPY RANGESSTANDARD DOSE: 2.0-3.0 Include s: PROPHYLAXIS for venous thrombosis, systemic embolization; TREATMENT for venou s thrombosis and/or pulmonary embolus.HIGH RISK: Target INR is 2.5-3.5 for patie nts wiht mechanical heart valves.CBC (HEMOGRAM ONLY)2019-06-19 04:37:00* Test Item Value Reference Range Interpretation Comments WHITE BLOOD CELL COUNT (BEAKER) (test code = 775) 16.5 K/ L 3.5- 10.5 H RED BLOOD CELL COUNT (BEAKER) (test code = 761) 2.84 M/ L 4.63-6 .08 L HEMOGLOBIN (BEAKER) (test code = 410) 8.4 GM/DL 13.7-17.5 L HEMATOCRIT (BEAKER) (test code = 411) 26.1 % 40.1-51.0 L MEAN CORPUSCULAR VOLUME (BEAKER) (test code = 753) 91.9 fL 79. 0-92.2 MEAN CORPUSCULAR HEMOGLOBIN (BEAKER) (test code = 751) 29.6 pg 25.7-32.2 MEAN CORPUSCULAR HEMOGLOBIN CONC (BEAKER) (test code = 752) 32.2 GM/DL 32.3-36.5 L RED CELL DISTRIBUTION WIDTH (BEAKER) (test code = 412) 15.7 % 11.6-14.4 H PLATELET COUNT (BEAKER) (test code = 756) 328 K/CU MM 150-450 MEAN PLATELET VOLUME (BEAKER) (test code = 754) 10.1 fL 9.4-12 .4 NUCLEATED RED BLOOD CELLS (BEAKER) (test code = 413) 0 /100 WBC 0 -0 [id number] 00:55:00* Test Item Value Reference Range Interpretation Comments POTASSIUM (BEAKER) (test code = 379) 2.8 meq/L 3.5-5.1 L Quality Assurance Analyst ID - MATHEUS [id number] 20:44:00* Test Item Value Reference Range Interpretation Comments POTASSIUM (BEAKER) (test code = 379) 2.9 meq/L 3.5-5.1 L Quality Assurance Analyst ID - AMERICO [id number] 20:44:00* Test Item Value Reference Range Interpretation Comments MAGNESIUM (BEAKER) (test code = 627) 2.2 mg/dL 1.6-2.6 Quality Assurance Analyst ID - AMERICO WRapid Influenza A&B [id number] 17:38:00* Test Item Value Reference Range Interpretation Comments Rapid Influenza A Antigen (test code = 76344-7) Negative Negative, Inconclusive Rapid influenza B Antigen (test code = 94358-1) Negative Negative, Inconclusive Lab Interpretation (test code = 18628-9) [facility]B [id number] 17:38:00* Test Item Value Reference Range Interpretation Comments RAPID INFLUENZA A AG (BEAKER) (test code = 1622) Negative Negative, Inconclusive RAPID INFLUENZA B AG (BEAKER) (test code = 1623) Negative Negative, Inconclusive ABORH, [id number] 17:12:00* Test Item Value Reference Range Interpretation Comments Rh Factor (test code = 2589) POS ABO Grouping (test code = 2588) O [facility]2020-[facility] 16:55:00* Test Item Value Reference Range Interpretation Comments AMMONIA (BEAKER) (test code = 348) 24 mol/L 18-72 Quality Assurance Analyst ID - AMERICO GOMEZ, ABDOMEN/KUB, 1 VIEW [id number] 16:24:00Reason for exam:->distentionFINAL REPORT CLINICAL HISTORY: distention TECHNIQUE: Supine abdomen COMPARISON: None IMPRESSION: There is a nasogastric tube with its tip in the gastric fundus. The abdomen is incompletely imaged, but there is severe appearing gaseous distention of large bowel and possibly small bowel. Slightly hyperdense stool in the right hemicolon may be related to previous oral contrast. There is vicarious secretion of contrast within the bladder. Free air and air-fluid levels cannot be excluded on these supine views. Signed: Mary Juarez MDReport Verified Date/Time: 06/18/2019 16:24:44 Reading Location: [facility] C0[facility] Neuro Reading Room Type and screen, [id number] 16:16:00* Test Item Value Reference Range Interpretation Comments ABO/RH AUTOMATED (BEAKER) (test code = 2260) O POSITIVE Ab Scrn (test code = 890-4) NEGATIVE [facility], 1 [facility], NON [id number] 16:16:00 Reason for exam:->CVL placementShould this be performed at the bedside?->Yes FINAL REPORT TECHNIQUE: Frontal view of the chest. INDICA TION: CVL placement. COMPARISON: None. FINDINGS: LINES/TUBES: A right subclavia n central venous catheter has its tip in the lower right atrium. A NG tube has i ts tip over the gastric fundus. LUNGS: Pulmonary venous congestion. Mild streaky opacities in the left base are most consistent with atelectasis. No consolidati on or pulmonary edema. PLEURA: No pneumothorax or significant pleural effusion. HEART AND MEDIASTINUM: The cardiomediastinal silhouette is within normal limits. SOFT TISSUES AND BONES: Prominent loops of bowel in the upper abdomen.. Prior m edian sternotomy. There is likely been a prior resection of the left distal clav icle. IMPRESSION: A right subclavian central venous catheter has its tip in the low right atrium. No pneumothorax. Nonspecific, prominent loops of bowel in the upper abdomen Signed: Melissa Barton MDReport Verified Date/Time: 06/18/2019 16:16 :50 Reading Location: [facility] B1 C013Y CT Body Reading Room Electronically sign ed by: MELISSA BARTON MD on 06/18/2019 04:16 PM XR chest 1 view portable / [id number] 16:16:00Interface, External Ris In - 06/18/2019 4:19 PM CDTFINAL REPORT TECHNIQUE: Frontal view of the chest. [...] of bowel in the upper abdomen Signed: Melissa Barton MDReport Verified Date/Time: 06/18/2019 16:16:50 Reading Location: [facility] C013Y CT Body Reading Room [facility]/[id number] 16:09:00* Test Item Value Reference Range Interpretation Comments Protime (test code = 5902-2) 17.6 11.9- 14.2 seconds H INR (test code = 6301-6) 1.5 <=5.9 PTT (test code = 72058-2) 35.2 22.5- 36.0 seconds MAVERICK (test code = MAVERICK) Effective 08/24/2018: PT Refe rence Range ChangeNew: 11.9- 14.2 Previous: 11.7-14.7 RECOMMENDED COUMADIN/WARFARIN INR THERAPY RANGESSTANDARD DOSE: 2.0-3.0 Includes: PROPHYLAXIS for venous thrombosis, sys temic embolization; TREATMENT for venous thrombosis and/or pulmonary embolus.HIGH RISK: Target INR is 2.5-3.5 for patients wiht mechanical heart valves. Lab Interpretation (test code = 30967-2) Abnormal [facility][id number] 16:09:00* Test Item Value Reference Range Interpretation Comments PROTIME (BEAKER) (test code = 759) 17.6 seconds 11.9-14.2 H INR (BEAKER) (test code = 370) 1.5 <=5.9 PARTIAL THROMBOPLASTIN TIME (BEAKER) (test code = 760) 35.2 seconds 22.5-36.0 Effective 08/24/2018: PT Reference Range ChangeNew: 11.9-14.2 Previous: 11.7-14. 7RECOMMENDED COUMADIN/WARFARIN INR THERAPY RANGESSTANDARD DOSE: 2.0-3.0 Include s: PROPHYLAXIS for venous thrombosis, systemic embolization; TREATMENT for venou s thrombosis and/or pulmonary embolus.HIGH RISK: Target INR is 2.5-3.5 for patie nts wiht mechanical heart valves.PROTHROMBIN TIME/[id number] 16:08:00* Test Item Value Reference Range Interpretation Comments PROTIME (BEAKER) (test code = 759) 17.6 seconds 11.9-14.2 H INR (BEAKER) (test code = 370) 1.5 <=5.9 Effective 08/24/2018: PT Reference Range ChangeNew: 11.9-14.2 Previous: 11.7-14. 7RECOMMENDED COUMADIN/WARFARIN INR THERAPY RANGESSTANDARD DOSE: 2.0-3.0 Include s: PROPHYLAXIS for venous thrombosis, systemic embolization; TREATMENT for venou s thrombosis and/or pulmonary embolus.HIGH RISK: Target INR is 2.5-3.5 for patie nts wiht mechanical heart valves.Comprehensive metabolic [id number] 16:02:00* Test Item Value Reference Range Interpretation Comments Protein, Total (test code = 2885-2) 6.6 6.0- 8.3 gm/dL Albumin (test code = 29946-1) 3.3 g/dL 3.5-5 L Alkaline Phosphatase (test code = 6768-6) 106 U/L 40-150 Total Bilirubin (test code = 1975-2) 1.1 mg/dL 0.2-1.2 Sodium (test code = 2951-2) 142 meq/L 136-145 Potassium (test code = 2823-3) 2.8 meq/L 3.5-5.1 L Chloride (test code = 2075-0) 111 meq/L 98-107 H CO2 (test code = 8-9) 22 meq/L 22-29 BUN (test code = 3094-0) 33 mg/dL 7-21 H Creatinine (test code = 2160-0) 1.84 mg/dL 0.57-1.25 H Glucose (test code = 2345-7) 92 mg/dL 70-105 Calcium (test code = 04190-5) 8.3 mg/dL 8.4-10.2 L AST (test code = 1920-8) 27 U/L 5-34 ALT (test code = 1742-6) 12 U/L 6-55 EGFR (test code = 36911-9) 38 mL/min/1.73 sq m ESTIMATED GFR IS NOT ACCURATE CREATININE CLEARANCE IN PREDICTING GLOMERULAR FILTRATION RATE. ESTIMATED GFR IS NOT APPLICABLE FOR DIALYSIS PATIENTS. MAVERICK (test code = MAVERICK) Quality Assurance Analyst CARLO [place] Lab Interpretation (test code = 67277-5) [facility] [id number] 16:02:00* Test Item Value Reference Range Interpretation Comments Protein, Total (test code = 2885-2) 6.6 6.0- 8.3 gm/dL Albumin (test code = 67458-2) 3.3 g/dL 3.5-5 L Total Bilirubin (test code = 1974-2) 1.1 mg/dL 0.2-1.2 Bilirubin, Direct (test code = 1967-7) 0.4 mg/dL 0.1-0.5 Alkaline Phosphatase (test code = 6768-6) 106 U/L 40-150 AST (test code = 1920-8) 27 U/L 5-34 ALT (test code = 1742-6) 12 U/L 6-55 MAVERICK (test code = MAVERICK) Quality Assurance Analyst ID Radha Matamoros Lab Interpretation (test code = 62387-3) [facility] Test Item Value Reference Range Interpretation Comments PHOSPHORUS (BEAKER) (test code = 604) 4.0 mg/dL 2.3-4.7 Quality Assurance Analyst ID - AMERICO [id number] 16:02:00* Test Item Value Reference Range Interpretation Comments MAGNESIUM (BEAKER) (test code = 627) 1.9 mg/dL 1.6-2.6 Quality Assurance Analyst ID - AMERICO WHEPATIC FUNCTION [id number] 16:02:00* Test Item Value Reference Range Interpretation Comments TOTAL PROTEIN (BEAKER) (test code = 770) 6.6 gm/dL 6.0-8.3 ALBUMIN (BEAKER) (test code = 1145) 3.3 g/dL 3.5-5.0 L BILIRUBIN TOTAL (BEAKER) (test code = 377) 1.1 mg/dL 0.2-1.2 BILIRUBIN DIRECT (BEAKER) (test code = 706) 0.4 mg/dL 0.1-0.5 ALKALINE PHOSPHATASE (BEAKER) (test code = 346) 106 U/L 40-150 AST (SGOT) (BEAKER) (test code = 353) 27 U/L 5-34 ALT (SGPT) (BEAKER) (test code = 347) 12 U/L 6-55 Quality Assurance Analyst CARLO DRISCOLL WCOMPREHENSIVE METABOLIC [id number] 16:02:00* Test Item Value Reference Range Interpretation Comments TOTAL PROTEIN (BEAKER) (test code = 770) 6.6 gm/dL 6.0-8.3 ALBUMIN (BEAKER) (test code = 1145) 3.3 g/dL 3.5-5.0 L ALKALINE PHOSPHATASE (BEAKER) (test code = 346) 106 U/L 40-150 BILIRUBIN TOTAL (BEAKER) (test code = 377) 1.1 mg/dL 0.2-1.2 SODIUM (BEAKER) (test code = 381) 142 meq/L 136-145 POTASSIUM (BEAKER) (test code = 379) 2.8 meq/L 3.5-5.1 L CHLORIDE (BEAKER) (test code = 382) 111 meq/L 98-107 H CO2 (BEAKER) (test code = 355) 22 meq/L 22-29 BLOOD UREA NITROGEN (BEAKER) (test code = 354) 33 mg/dL 7-21 H CREATININE (BEAKER) (test code = 358) 1.84 mg/dL 0.57-1.25 H GLUCOSE RANDOM (BEAKER) (test code = 652) 92 mg/dL 70-105 CALCIUM (BEAKER) (test code = 697) 8.3 mg/dL 8.4-10.2 L AST (SGOT) (BEAKER) (test code = 353) 27 U/L 5-34 ALT (SGPT) (BEAKER) (test code = 347) 12 U/L 6-55 EGFR (BEAKER) (test code = 1092) 38 mL/min/1.73 sq m ESTIMATED GFR IS NOT ACCURATE CREATININE CLEARANCE IN PREDICTING GLOMERULAR FILTRATION RATE. ESTIMATED GFR IS NOT APPLICABLE FOR DIALYSIS PATIENTS. Quality Assurance Analyst CARLO Radha AMERICO WLactic acid, [id number] 15:57:00* Test Item Value Reference Range Interpretation Comments Lactate, Venous (test code = 2872) 1.02 mmol/L 0.5-2.2 Specimen moderately hemolyzed MAVERICK (test code = MAVERICK) Quality Assurance Analyst CARLO Radha DRISCOLL W Lab Interpretation (test code = 10512-6) [facility] [id number] 15:57:00* Test Item Value Reference Range Interpretation Comments LACTATE BLOOD VENOUS (2) (BEAKER) (test code = 2872) 1.02 mmol/L 0 .50-2.20 Specimen moderately hemolyzed Quality Assurance Analyst CARLO DRISCOLL WCBC W/PLT COUNT & AUTO [id number] 15:51:00* Test Item Value Reference Range Interpretation Comments WHITE BLOOD CELL COUNT (BEAKER) (test code = 775) 12.4 K/ L 3.5- 10.5 H RED BLOOD CELL COUNT (BEAKER) (test code = 761) 2.82 M/ L 4.63-6 .08 L HEMOGLOBIN (BEAKER) (test code = 410) 8.7 GM/DL 13.7-17.5 L HEMATOCRIT (BEAKER) (test code = 411) 26.4 % 40.1-51.0 L MEAN CORPUSCULAR VOLUME (BEAKER) (test code = 753) 93.6 fL 79. 0-92.2 H MEAN CORPUSCULAR HEMOGLOBIN (BEAKER) (test code = 751) 30.9 pg 25.7-32.2 MEAN CORPUSCULAR HEMOGLOBIN CONC (BEAKER) (test code = 752) 33.0 GM/DL 32.3-36.5 RED CELL DISTRIBUTION WIDTH (BEAKER) (test code = 412) 15.7 % 11.6-14.4 H PLATELET COUNT (BEAKER) (test code = 756) 311 K/CU MM 150-450 MEAN PLATELET VOLUME (BEAKER) (test code = 754) 10.0 fL 9.4-12 .4 NUCLEATED RED BLOOD CELLS (BEAKER) (test code = 413) 0 /100 WBC 0 -0 NEUTROPHILS RELATIVE PERCENT (BEAKER) (test code = 429) 80 % LYMPHOCYTES RELATIVE PERCENT (BEAKER) (test code = 430) 9 % MONOCYTES RELATIVE PERCENT (BEAKER) (test code = 431) 8 % EOSINOPHILS RELATIVE PERCENT (BEAKER) (test code = 432) 1 % BASOPHILS RELATIVE PERCENT (BEAKER) (test code = 437) 1 % NEUTROPHILS ABSOLUTE COUNT (BEAKER) (test code = 670) 9.92 K/ L 1.78-5.38 H LYMPHOCYTES ABSOLUTE COUNT (BEAKER) (test code = 414) 1.15 K/ L 1.32-3.57 L MONOCYTES ABSOLUTE COUNT (BEAKER) (test code = 415) 0.98 K/ L 0. 30-0.82 H EOSINOPHILS ABSOLUTE COUNT (BEAKER) (test code = 416) 0.09 K/ L 0.04-0.54 BASOPHILS ABSOLUTE COUNT (BEAKER) (test code = 417) 0.07 K/ L 0. 01-0.08 IMMATURE GRANULOCYTES-RELATIVE PERCENT (BEAKER) (test code = 2801) 1 % 0-1 Blood gas, [id number] 15:41:00* Test Item Value Reference Range Interpretation Comments pH, Arterial (test code = 2744-1) 7.45 7.35-7.45 pCO2, Arterial (test code = 2019-8) 33 35- 45 mmHg L pO2, Arterial (test code = 2703-7) 83 80- 90 mmHg O2 Sat, Arterial (test code = 2708-6) 96.7 % 96-97 HCO3, Arterial (test code = 1960-4) 22 mmol/L 21-29 Base Excess, Arterial (test code = 1925-7) -1.6 mmol/L -2-3 Patient Temperature (test code = 8310-5) 37.0 C FIO2 (test code = 1819) 36 % Lab Interpretation (test code = 58831-5) [facility]normal [facility], [id number] 15:41:00* Test Item Value Reference Range Interpretation Comments PH ARTERIAL (BEAKER) (test code = 383) 7.45 7.35-7.45 PCO2 ARTERIAL (BEAKER) (test code = 384) 33 mmHg 35-45 L PO2 ARTERIAL (BEAKER) (test code = 385) 83 mmHg 80-90 O2 SATURATION ARTERIAL (BEAKER) (test code = 386) 96.7 % 96.0 -97.0 HCO3 ARTERIAL (BEAKER) (test code = 388) 22 mmol/L 21-29 BASE EXCESS ARTERIAL (BEAKER) (test code = 387) -1.6 mmol/L -2.0-3 .0 PATIENT TEMPERATURE (BEAKER) (test code = 1818) 37.0 C FIO2 (BEAKER) (test code = 1819) 36.0 %
[2019-12-27] MEDS ORDERED: CEFEPIME 1GM/NS 0.9% 50 ML 50 ML IV ONE (19:27)
[2019-12-27 19:42] LABS: BASOPHILS # (AUTO) 0.1 (0.0-0.1); BASOPHILS % 0.4 % (0.0-1.0); EOSINOPHILS % 0.1 % (0.0-6.0); HEMATOCRIT 26.8 % (38.2-49.6); HEMOGLOBIN 8.4 g/dL (14.0-18.0); LYMPHOCYTES # (AUTO) 0.6 (1.0-3.2); LYMPHOCYTES % 4.1 % (18.0-39.1); MEAN CORPUSCULAR HEMOGLOBIN 28.5 pg (28-32); MEAN CORPUSCULAR HGB CONC 31.3 g/dL (31-35); MEAN CORPUSCULAR VOLUME 90.8 fL (81-99); MONOCYTES % 7.2 % (4.4-11.3); NEUTROPHILS # (AUTO) 11.9 (2.1-6.9); NEUTROPHILS % 87.8 % (38.7-80.0); PLATELET COUNT 367 x10e3/uL (140-360); RED BLOOD COUNT 2.95 x10e6/uL (4.3-5.7); RED CELL DISTRIBUTION WIDTH 19.8 % (11.7-14.4)
[2019-12-27 20:02] LABS: ALBUMIN 3.4 g/dL (3.5-5.0); ALBUMIN/GLOBULIN RATIO 0.9 (0.8-2.0); ALKALINE PHOSPHATASE 75 IU/L (40-150); ANION GAP 14.9 mmol/L (8-16); BLOOD UREA NITROGEN 15 mg/dL (7-26); BUN/CREATININE RATIO 14 (6-25); CALCIUM 8.7 mg/dL (8.4-10.2); CARBON DIOXIDE 24 mmol/L (22-29); CHLORIDE 106 mmol/L (98-107); CREATINE KINASE 14 IU/L (30-200); CREATININE, SERUM 1.06 mg/dL (0.72-1.25); EST GLOMERULAR FILTRATION RATE > 60 ML/MIN (60-); GLUCOSE 110 mg/dL (74-118); POTASSIUM 3.9 mmol/L (3.5-5.1); SODIUM 141 mmol/L (136-145)
[2019-12-27 20:03] LABS: ALANINE AMINOTRANSFERASE < 6 IU/L (0-55)
--- NOTE | 2019-12-27 20:03 | Emergency Department Note ---
History of Present Illnes History of Present Illness Chief Complaint: Neurological History of Present Illness This is a 59 year old male AAOX3 PRESENTS TO THE ER VIA EMS FROM MED RESORT FOR REPORTED POSSIBLE UTI PER DETENTION STAFF; PER EMS, PT WAS COMBATIVE TOWARDS STAFF AND ALTERED; PT IN NAD AT THIS TIME; PT ANSWERING QUESTIONS APPROPRIATLEY AND COOPERATIVE; PT DENIES CP OR SOB; PT TACHYCARIC ON ARRIVAL, HR 130 . Historian: Patient, Eligibility Analyst/EMS Arrival Mode: [facility] EMS Onset (how long ago): unknown Location: NONE Quality: PT WITHOUT COMPLAINTS Severity: unable to specify Onset quality: unable to specify Timing of current episode: unable to specify Progression: unable to specify Chronicity: new Relieving factors: none Exacerbating factors: none Associated symptoms: Reports denies other symptoms Treatments prior to arrival: none Past Medical/Family History Physician Review I have reviewed the patient's past medical and family history. Any updates have been documented here. Past Medical History Recent Fever: Yes Clinical Suspicion of Infectio: Yes New/Unexplained Change in Ment: No Past Medical History: Hypertension, Diabetes, CHF, Hypothyroidism, UTI's, Anemia, Anxiety, Hyperlipedemia Other Medical History: ENTEROCOLITIS DUE TO C.DIFF ULCERATIVE COLITIS MRSA OBESITY HYPOKALEMIA PSYCHOSIS ATHEROSCLEROTIC HEART DISEASE ILEUS Other Surgery: UNABLE TO OBTAIN POOR HISTORIAN Social History Smoking Cessation: Former smoker Alcohol Use: None Any Illegal Drug Use: No Family History Family history of heart diseas: No Review of Systems Review of Systems Constitutional: Reports no symptoms EENTM: Reports no symptoms Cardiovascular: Reports no symptoms Respiratory: Reports no symptoms Gastrointestinal: Reports no symptoms Genitourinary: Reports no symptoms Musculoskeletal: Reports no symptoms Integumentary: Reports no symptoms Neurological: Reports no symptoms Psychological: Reports no symptoms Endocrine: Reports no symptoms Hematological/Lymphatic: Reports no symptoms Physical Exam Related Data Allergies: Coded Allergies: morphine (Verified Allergy, Unknown, 11/09/19) oxycodone (Verified Allergy, Unknown, 11/09/19) Triage Vital Signs Vital Signs Date Time Temp Pulse Resp B/P (MAP) Pulse Ox O2 Delivery O2 Flow Rate FiO2 12/27/19 19:30 126 22 133/85 100 Nasal Cannula 3.0 12/27/19 19:34 99.6 Vital signs reviewed: Yes Physical Exam CONSTITUTIONAL Constitutional: Present well-developed, Present well-nourished; Absent distressed HENT HENT: Present normocephalic, Present atraumatic, Present mucosae dry, Present nose normal HENT L/R: Present left ext ear normal, Present right ext ear normal EYES Eyes: Reports PERRL, Reports conjunctivae normal NECK Neck: Present ROM normal PULMONARY Pulmonary: Present effort normal, Present breath sounds normal CARDIOVASCULAR Cardiovascular: Present regular rhythm, Present heart sounds normal, Present capillary refill normal, Present tachycardia (130) GASTROINTESTINAL Abdominal: Present soft, Present nontender, Present bowel sounds normal GENITOURINARY Genitourinary: Present exam deferred SKIN Skin: Present warm, Present dry MUSCULOSKELETAL Musculoskeletal: Present ROM normal NEUROLOGICAL Neurological: Present alert, Present oriented x 3, Present no gross motor or sensory deficits PSYCHOLOGICAL Psychological: Present mood/affect normal, Present judgement normal Results Laboratory Result Diagram: 12/27/191918 Laboratory Laboratory Tests Test 12/27/19 20:30 12/27/19 19:19 Urine Color Straw (YELLOW) Urine Clarity Sl cloudy (CLEAR) Urine pH 6 (5 - 7) Urine Specific [place] 1.025 (1.010-1.025) Urine Protein Negative (NEGATIVE) Urine Glucose (UA) Negative (NEGATIVE) Urine Ketones Negative (NEGATIVE) Urine Blood Negative (NEGATIVE) Urine Nitrite Positive (NEGATIVE) Urine Bilirubin Negative (NEGATIVE) Urine Urobilinogen 0.2 mg/dL (0.2 - 1) Urine Leukocyte Esterase Negative (NEGATIVE) Urine RBC None /HPF (0-5) Urine WBC 6-10 /HPF (0-5) Urine Epithelial Cells Few /LPF (NONE) Urine Amorphous Sediment Moderate (FEW) Urine Bacteria Many /HPF (NONE) White Blood Count 13.50 x10e3/uL (4.8-10.8) Red Blood Count 2.95 x10e6/uL (4.3-5.7) Hemoglobin 8.4 g/dL (14.0-18.0) Hematocrit 26.8 % (38.2-49.6) Mean Corpuscular Volume 90.8 fL (81-99) Mean Corpuscular Hemoglobin 28.5 pg (28-32) Mean Corpuscular Hemoglobin Concent 31.3 g/dL (31-35) Red Cell Distribution Width 19.8 % (11.7-14.4) Platelet Count 367 x10e3/uL (140-360) Neutrophils (%) (Auto) 87.8 % (38.7-80.0) Lymphocytes (%) (Auto) 4.1 % (18.0-39.1) Monocytes (%) (Auto) 7.2 % (4.4-11.3) Eosinophils (%) (Auto) 0.1 % (0.0-6.0) Basophils (%) (Auto) 0.4 % (0.0-1.0) Neutrophils # (Auto) 11.9 (2.1-6.9) Lymphocytes # (Auto) 0.6 (1.0-3.2) Monocytes # (Auto) 1.0 (0.2-0.8) Eosinophils # (Auto) 0.0 (0.0-0.4) Basophils # (Auto) 0.1 (0.0-0.1) Absolute Immature Granulocyte (auto 0.06 x10e3/uL (0-0.1) Sodium Level 141 mmol/L (136-145) Potassium Level 3.9 mmol/L (3.5-5.1) Chloride Level 106 mmol/L (98-107) Carbon Dioxide Level 24 mmol/L (22-29) Anion Gap 14.9 mmol/L (8-16) Blood Urea Nitrogen 15 mg/dL (7-26) Creatinine 1.06 mg/dL (0.72-1.25) Estimat Glomerular Filtration Rate > 60 ML/MIN (60-) BUN/Creatinine Ratio 14 (6-25) Glucose Level 110 mg/dL (74-118) Lactic Acid Level 1.4 mmol/L (0.5-2.0) Calcium Level 8.7 mg/dL (8.4-10.2) Total Bilirubin 0.2 mg/dL (0.2-1.2) Aspartate Amino Transf (AST/SGOT) 13 IU/L (5-34) Alanine Aminotransferase (ALT/SGPT) < 6 IU/L (0-55) Alkaline Phosphatase 75 IU/L (40-150) Creatine Kinase 14 IU/L (30-200) Creatine Kinase MB 0.60 ng/mL (0-5.0) Troponin I 0.013 ng/mL (0-0.300) Total Protein 7.0 g/dL (6.5-8.1) Albumin 3.4 g/dL (3.5-5.0) Globulin 3.6 g/dL (2.3-3.5) Albumin/Globulin Ratio 0.9 (0.8-2.0) Laboratory Tests Test 12/27/19 19:19 White Blood Count 13.50 x10e3/uL (4.8-10.8) Red Blood Count 2.95 x10e6/uL (4.3-5.7) Hemoglobin 8.4 g/dL (14.0-18.0) Hematocrit 26.8 % (38.2-49.6) Mean Corpuscular Volume 90.8 fL (81-99) Mean Corpuscular Hemoglobin 28.5 pg (28-32) Mean Corpuscular Hemoglobin Concent 31.3 g/dL (31-35) Red Cell Distribution Width 19.8 % (11.7-14.4) Platelet Count 367 x10e3/uL (140-360) Neutrophils (%) (Auto) 87.8 % (38.7-80.0) Lymphocytes (%) (Auto) 4.1 % (18.0-39.1) Monocytes (%) (Auto) 7.2 % (4.4-11.3) Eosinophils (%) (Auto) 0.1 % (0.0-6.0) Basophils (%) (Auto) 0.4 % (0.0-1.0) Neutrophils # (Auto) 11.9 (2.1-6.9) Lymphocytes # (Auto) 0.6 (1.0-3.2) Monocytes # (Auto) 1.0 (0.2-0.8) Eosinophils # (Auto) 0.0 (0.0-0.4) Basophils # (Auto) 0.1 (0.0-0.1) Absolute Immature Granulocyte (auto 0.06 x10e3/uL (0-0.1) Lab results reviewed: Yes Imaging Imaging results reviewed: Yes Impressions Procedure: [id number] DX/CHEST SINGLE (PORTABLE) Exam Date: 12/27/19 Exam Time: 1956 REPORT STATUS: Signed EXAMINATION: CHEST SINGLE (PORTABLE) INDICATION: fever COMPARISON: Multiple prior chest x-ray examinations most recent dated 11/21/2019. FINDINGS: AP view TUBES and LINES: None. . LUNGS/PLEURA: Lungs are well inflated. There are bilateral interstitial opacities likely representing pulmonary edema.. Right basilar opacity is seen could represent pneumonia in appropriate clinical setting. There is no pleural effusion or pneumothorax. HEART AND MEDIASTINUM: Cardiac size is mildly enlarged. BONES AND SOFT TISSUES: Midline sternotomy wires are present. No acute osseous lesion. Soft tissues are unremarkable. UPPER ABDOMEN: No free air under the diaphragm. IMPRESSION: Mild cardiomegaly with pulmonary edema. Right basilar opacity is seen could represent pneumonia in the appropriate clinical setting Signed by: Tru Howell MD on 12/27/2019 8:49 PM Dictated By: TRU HOWELL MD 48 Transcribed By: EARL on 12/27/192048 COPY TO: BERTRAM LOBO MD~ Procedure: [id number] CT/CT BRAIN WO Exam Date: 12/27/19 Exam Time: 1954 REPORT STATUS: Signed EXAMINATION: Head CT HISTORY: 59-year-old male with altered mental status, abnormal behavior, fever. COMPARISON: None. TECHNIQUE: Helical axial images of the head were obtained. Reformatted coronal and sagittal images from the axial data. Dose modulation, iterative reconstruction, and/or weight based adjustment of the mA/kV was utilized to reduce the radiation dose to as low as reasonably achievable. FINDINGS: Parenchyma: 1. Cortical subcortical encephalomalacia in the left superior/middle frontal gyri, likely the sequela from remote ischemia, partially involving the left precentral cortex anteriorly. 2. A few scattered white matter hypodensities, most likely correspond to nonspecific chronic microvascular ischemic changes. 3. No mass or hemorrhage. No CT evidence of acute territorial vascular insult. Extra-axial spaces:No abnormal density. No extra-axial fluid collections Brain volume: Normal for age. Ventricles: No hydrocephalus or displacement. Arteries: No density suggestive of thrombus. Dural sinuses: No abnormal density. Foramen magnum: No mass, Chiari malformation, or basilar invagination. Sella: No obvious mass. Paranasal/mastoid sinuses: Hypopneumatization and sclerosis of the left masseter cells with partial opacification, likely related to chronic inflammatory process. Otherwise clear Skull/Scalp: No lytic or blastic lesions. No fractures. IMPRESSION: 1. No acute intracranial hemorrhage, mass or cortical infarcts. 2. 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 3. Minimal chronic microvascular ischemic changes. Signed by: Dr. Dipak Sanchez M.D. on 12/27/2019 8:24 PM Dictated By: DIPAK SANCHEZ MD 23 Transcribed By: EARL on 12/27/192023 COPY TO: BERTRAM LOBO MD~ Procedures 12 Lead ECG Interpretation ECG Interpretation : ECG: ECG 1 Director Diversity: Interpreted by ED physician Date: Dec 27, 2019 Time: 19:16 Prior ECG tracings: reviewed Rhythm: sinus tachycardia Rate: tachycardia BPM: 127 QRS axis: normal ST segments normal: Yes T waves normal: Yes Other findings: no other findings Clinical Impression: non-specific ECG Assessment & Plan Medical Decision Making MDM PT FROM DETENTION WITH REPORTS OF COMBATIVE BEHAVIOR TODAY, PT CALM, ORIENTED TIMES 3 ON ARRIVAL TO ER CBC, CMP, EKG, CXR, UA, URINE CULTURE, BLOOD CULTURE, LACTIC ACID, CT BRAIN ORDERED TO EVAL FOR UTI, PNEUMONIA, ELECTROLYTE ABNORMALITY, DEHYDRATION, SEPSIS, CEFEPIME 2 GRAMS IV ORDERED TYLENOL 650 MG PO ORDERED 1 LITER NS IV BOLUS ORDERED I SPOKE WITH DR MORALES ADMKYLEE INPATIENT Assessment & Plan Final Impression: (1) UTI (urinary tract infection) (2) Pneumonia Depart Disposition: ADMITTED Last Vital Signs Date Time Temp Pulse Resp B/P (MAP) Pulse Ox O2 Delivery O2 Flow Rate FiO2 12/27/19 19:34 99.6 130 22 129/87 100 Nasal Cannula 3.0 Home Meds Active Scripts Lorazepam (LORAZEPAM) 2 Mg/1 Ml Vial, 1 MG IM Q4HR PRN for AGITATION for 30 Days, VIAL Prov:SASHA DEUTSCH [employer] COMPOSER FEEDER 11/22/19 Vancomycin Hcl (VANCOCIN HCL) 250 Mg Capsule, 250 MG PO Q6HR for 4 Days Prov:SASHA DEUTSCH [employer] COMPOSER FEEDER 11/22/19 Metronidazole (FLAGYL) 500 Mg Tablet, 500 MG PO Q8H for 4 Days Prov:SASHA DEUTSCH NP 11/22/19 Levothyroxine Sodium (SYNTHROID) 50 Mcg Tab, 50 MCG PO DAILY@06 for 30 Days, TAB Prov:SASHA DEUTSCH [employer] COMPOSER FEEDER 11/22/19 [Lactobacillus Acidophilus] 1 TAB TAB No Conflict Check, 1 TAB PO BID for 30 Days Prov:SASHA DEUTSCH C[employer] COMPOSER FEEDER 11/22/19 Ferrous Sulfate (FERROUS SULFATE) 325 Mg Tablet, 325 MG PO BIDWM for 60 Days Prov:SASHA DEUTSCH CORE COMPOSER FEEDER 11/22/19 Divalproex Sodium (DEPAKOTE) 250 Mg Tabec, 250 MG PO BID for 60 Days Prov:SASHA DEUTSCH C[employer] COMPOSER FEEDER 11/22/19 Medications in the ED Cefepime HCl 100 ml @ 200 mls/hr ONCE ONCE IV Last administered on 12/27/19at 19:34; Admin Dose 200 MLS/HR; Start 12/27/19 at 19:15; Stop 12/27/19 at 19:44; Status DC Acetaminophen 650 mg ONCE ONCE PO Last administered on 12/27/19at 19:30; Admin Dose 650 MG; Start 12/27/19 at 19:15; Stop 12/27/19 at 19:29; Status DC Sodium Chloride 1,000 ml @ 999 mls/hr Q1H1M ONCE IV Last administered on at 19:30; Admin Dose 999 MLS/HR; Start 12/27/19 at 19:15; Stop 12/27/19 at 20:15 Cefepime HCl 50 ml @ ud STK-MED ONCE IV ; Start 12/27/19 at 19:27; Stop 12/27/19 at 19:20; Status DC BERTRAM LOBO MD Dec 27, 2019 20:03
--- NOTE | 2019-12-27 20:28 | Diagnostic Imaging Report ---
EXAMINATION: Head CT HISTORY: 59-year-old male with altered mental status, abnormal behavior, fever. COMPARISON: None. TECHNIQUE: Helical axial images of the head were obtained. Reformatted coronal and sagittal images from the axial data. Dose modulation, iterative reconstruction, and/or weight based adjustment of the mA/kV was utilized to reduce the radiation dose to as low as reasonably achievable. FINDINGS: Parenchyma: 1. Cortical subcortical encephalomalacia in the left superior/middle frontal gyri, likely the sequela from remote ischemia, partially involving the left precentral cortex anteriorly. 2. A few scattered white matter hypodensities, most likely correspond to nonspecific chronic microvascular ischemic changes. 3. No mass or hemorrhage. No CT evidence of acute territorial vascular insult. Extra-axial spaces:No abnormal density. No extra-axial fluid collections Brain volume: Normal for age. Ventricles: No hydrocephalus or displacement. Arteries: No density suggestive of thrombus. Dural sinuses: No abnormal density. Foramen magnum: No mass, Chiari malformation, or basilar invagination. Sella: No obvious mass. Paranasal/mastoid sinuses: Hypopneumatization and sclerosis of the left masseter cells with partial opacification, likely related to chronic inflammatory process. Otherwise clear Skull/Scalp: No lytic or blastic lesions. No fractures. IMPRESSION: 1. No acute intracranial hemorrhage, mass or cortical infarcts. 2. 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 3. Minimal chronic microvascular ischemic changes. Signed by: Dr. Sandy Sanchez M.D. on 12/27/2019 8:24 PM
[2019-12-27 20:46] LABS: CLARITY,URINE SL CLOUDY (CLEAR); COLOR,URINE STRAW (YELLOW); LEUKOCYTE ESTERASE ,URINE NEGATIVE (NEGATIVE); NITRITE,URINE POSITIVE (NEGATIVE); PROTEIN,URINE DIPSTICK NEGATIVE (NEGATIVE)
[2019-12-27 20:47] LABS: BILIRUBIN,URINE NEGATIVE (NEGATIVE); KETONES,URINE NEGATIVE (NEGATIVE); URINE UROBILINOGEN 0.2 mg/dL (0.2 - 1)
--- NOTE | 2019-12-27 20:52 | Diagnostic Imaging Report ---
EXAMINATION: CHEST SINGLE (PORTABLE) INDICATION: fever COMPARISON: Multiple prior chest x-ray examinations most recent dated 11/21/2019. FINDINGS: AP view TUBES and LINES: None. . LUNGS/PLEURA: Lungs are well inflated. There are bilateral interstitial opacities likely representing pulmonary edema.. Right basilar opacity is seen could represent pneumonia in appropriate clinical setting. There is no pleural effusion or pneumothorax. HEART AND MEDIASTINUM: Cardiac size is mildly enlarged. BONES AND SOFT TISSUES: Midline sternotomy wires are present. No acute osseous lesion. Soft tissues are unremarkable. UPPER ABDOMEN: No free air under the diaphragm. IMPRESSION: Mild cardiomegaly with pulmonary edema. Right basilar opacity is seen could represent pneumonia in the appropriate clinical setting Signed by: Tru Mc MD on 12/27/2019 8:49 PM
[2019-12-27 20:58] LABS: BACTERIA,URINE MANY /HPF; EPITHELIAL CELLS,URINE FEW /LPF
[2019-12-27 20:59] LABS: AMORPHOUS SEDIMENT,URINE MODERATE (FEW)
[2019-12-27] MEDS ORDERED: SODIUM CHLORIDE 0.9% 1000ML 1,000 ML IV SCH (21:15)
[2019-12-27] MEDS ORDERED: DEXTROSE 50% SYRINGE 50 ML IV PRN (21:15)
[2019-12-27] MEDS ORDERED: ACETAMINOPHEN 325 MG TAB PO PRN (21:15)
[2019-12-27] MEDS ORDERED: AZITHROMYCIN 500MG/NS 250 ML 250 ML IV SCH (21:30)
--- OUTSIDE RECORDS SUMMARY | 2019-12-27 21:49 | XMS REPORT | Clinical Summary ---
Author Author CATHIE ZenDealsKootenai HealthContour Energy Systems [facility] HospitalLittle Red Wagon TechnologiesWenatchee Valley Medical Center Address Unknown Phone Unavailable Care Team Providers Care Tailor'S Aide Name Role Phone Evelio Beasley Unavailable Allergies [...] vein (HCC); Cough; Coronary artery disease involving [place] coronary artery of [place] heart with angina pectoris (HCC); Ischemic cardiomyopathy; [...] ms QTC Calculatio n(Bazett) 481 ms P [place] 56 degrees R [place] -3 degrees T [place] 87 degrees Normal sinus rhythm Prolonged QT Abnormal ECG ECG 12-LEAD Routine 06/18/2019 5:31 PM CDT ECG 12-LEAD Routine 06/18/2019 5:30 PM CDT Procedure Note - Interface, External Ris In - 06/18/2019 5:38 PM CDT Ventricula r Rate 95 BPM Atrial Rate 95 BPM P-R Interval 162 ms QRS Duration 96 ms Q-T Interval 378 ms QTC Calculatio n(Bazett) 475 ms P [place] 61 degrees R [place] 10 degrees T [place] 90 degrees Sinus rhythm with occasional Premature [...] ms QTC Calculatio n(Bazett) 478 ms P [place] 47 degrees R [place] -5 degrees T [place] 79 degrees Sinus rhythm with occasional Premature [...] included. Specimen Narrative Performed At FINAL REPORT [facility] Abdomen , one view History: Ileus [...] Report Verified Date/Time: 0 07:48:35 Reading Location: [facility] Reading Room - [place] [address] 112 Procedure Note Interface, External Ris In [...] Report Verified Date/Time: 07/11/2019 07:48:35 Reading Location: [facility] Diagnostic Imaging Reading Room - [place] [address] Performing Organization Address [facility] one Number GE RIS * aPTT (07/11/2019 4:42 AM CDT) Only the most recent of 23 results within the time period is included. PTT 41.1 (H) 22.5 - 36.0 seconds [facility] Specimen Blood Performing Organization Address [facility] one Number [place] [address] MEDICAL CENTER * Prothrombin time/INR (07/11/2019 4:42 AM CDT) Only the most recent of 24 results within the time period is included. Protime 17.6 (H) 11.9 - 14.2 seconds [facility] INR 1.5 <=5.9 [facility] Specimen Blood Narrative Performed At Effective 08/24/2018: PT Reference Range Change [facility] New: 11.9-14.2Previous: 11.7-14.7 [facility] MEDICAL CE NTER RECOMMENDED COUMADIN/WARFARIN INR THERA PY RANGES STANDARD DOSE: 2.0-3.0Includes: PRO PHYLAXIS for venous thrombosis, systemic embolization; TREATMENT for venous thro mbosis and/or pulmonary embolus. HIGH RISK: Target INR is 2.5-3.5 for pa tients wiht mechanical heart valves. Performing Organization Address [facility]/Zipcode Ph one [facility] [address] [place], [place] [address] MEDICAL CENTER * CBC (Hemogram only) (07/11/2019 4:42 AM CDT) Only the most recent of 23 results within the time period is included. WBC 5.9 3.5 - 10.5 K/L [facility] RBC 2.95 (L) 4.63 - 6.08 M/L [facility] Hemoglobin 8.7 (L) 13.7 - 17.5 GM/DL [facility] Hematocrit 26.6 (L) 40.1 - 51.0 % [facility] MCV 90.2 79.0 - 92.2 fL [facility] MCH 29.5 25.7 - 32.2 pg [facility] MCHC 32.7 32.3 - 36.5 GM/DL [facility] RDW 15.2 (H) 11.6 - 14.4 % [facility] Platelets 234 150 - 450 K/CU MM [facility] MPV 9.2 (L) 9.4 - 12.4 fL [facility] nRBC 0 0 - 0 /100 WBC [facility] Specimen Blood Performing Organization Address [facility] Ph one Number [place] [phone] [place], [place] [address] MEDICAL CENTER * Phosphorus (07/11/2019 4:42 AM CDT) Only the most recent of 22 results within the time period is included. Phosphorus 4.2 2.3 - 4.7 mg/dL [facility] Specimen Blood Narrative Performed At Cell Liner ID - CELESTINA W [facility] Performing Organization Address City/[facility] Hospitalcode Ph one Number [facility] [address] [place], [place] [address] [facility] * Magnesium (07/11/2019 4:42 AM CDT) Only the most recent of 31 results within the time period is included. Magnesium 1.6 1.6 - 2.6 mg/dL [facility] Specimen Blood Narrative Performed At Cell Liner ID - CELESTINA [place] [facility] Performing Organization Address [facility] Ph one [place] [facility] [address] [place], [place] [address] [facility] * Basic Metabolic Panel (07/11/2019 4:42 AM CDT) Only the most recent of 30 results within the time period is included. Sodium 135 (L) 136 - 145 meq/L [facility] Potassium 3.8 3.5 - 5.1 meq/L [facility] Chloride 104 98 - 107 meq/L [facility] CO2 26 22 - 29 meq/L [facility] BUN 6 (L) 7 - 21 mg/dL [facility] Creatinine 1.01 0.57 - 1.25 mg/dL [facility] Glucose 87 70 - 105 mg/dL [facility] Calcium 8.4 8.4 - 10.2 mg/dL [facility] EGFR 75Comment: ESTIMATED GFR IS mL/min/1.73 sq m [facility] NOT ACCURATE CREATININE [facility] CLEARANCE IN PREDICTING GLOMERULAR FILTRATION RATE. ESTIMATED GFR IS NOT APPLICABLE FOR DIALYSIS PATIENTS. Specimen Blood Narrative Performed At Cell Liner ID - CELESTINA [place] [facility] Performing Organization Address [facility] Ph one [place] [facility] [address] [place], [place] [address] [facility] * TSH (07/10/2019 6:38 PM CDT) Only the most recent of 4 results within the time period is included. TSH 1.612 0.350 - 4.940 uIU/mL [facility] Specimen Blood Narrative Performed At Cell Liner ID - BS [facility] Performing Organization Address [facility] Ph one Number [address] [address] [place] [place] * Potassium (07/07/2019 2:44 PM CDT) Only the most recent of 11 results within the time period is included. Potassium 4.3 3.5 - 5.1 meq/L [facility] Specimen Blood Narrative Performed At Cell Liner ID - ROSIANG [facility] Performing Organization Address [facility] one Number [address] [address] [facility] * CT abdomen/pelvis without iv contrast (06/29/2019 1:07 AM CDT) Specimen Narrative Performed At FINAL REPORT GE RIS CLINICAL HISTORY: Ileus FINDINGS: Multiple axial images of the abdomen an d pelvis were performed without intravenous contrast. Oral cont rast was given. This exam was performed according to [facility] departmental dose-optimization program, which includ es automated [...] Verified Date/Time: 06/29/2019 01:31:48 Performing Organization Address City/[facility] Ph one Number GE RIS * POC-Glucose meter (06/26/2019 8:43 AM CDT) Only the most recent of 22 results within the time period is included. POC-Glucose Meter 71Comment: : TESTED AT [facility] 70 - 110 mg/dL [address] [address]: Cell Liner/Superintendent Drivers ID = [id number] for RADAMES BOSWELL Specimen Blood Performing Organization Address [facility] Ph one Number [address] [address] [facility] * TRANSFUSION SERVICE REPORT - SCAN (06/23/2019 [...] Report Verified Date/Time: 0 11:25:52 Reading Location: [address] gy Reading Room Procedure Note Interface, [...] Report Verified Date/Time: 06/23/2019 11:25:52 Reading Location: [address] Radiology Reading Room Performing Organization Address [facility] Ph one Number GE RIS * Prepare Leuko-Red RBC (06/22/2019 11:54 PM CDT) CROSSMATCH COMPATIBLE SAFETRACE TX Unit ABO O Pos SAFETRACE TX UNIT NUMBER [id number] SAFETRACE TX Status TX_TIMEINCHART SAFETRACE [place] Blood Bank Product RED BLOOD CELLS SAFETRACE [place] PRODUCT CODE [id number] [place]AF[place] Specimen Other Performing Organization Address [facility] one Number [place] * Transfuse Leuko-Red RBC (06/21/2019 5:00 PM CDT) Only the most recent of 2 results within the time period is included. * CBC with platelet count + automated diff (06/20/2019 2:12 PM CDT) Only the most recent of 2 results within the time period is included. WBC 7.5 3.5 - 10.5 K/L [facility] RBC 2.55 (L) 4.63 - 6.08 M/L [facility] Hemoglobin 7.8 (L) 13.7 - 17.5 GM/DL [facility] Hematocrit 23.5 (L) 40.1 - 51.0 % [facility] MCV 92.2 79.0 - 92.2 fL [facility] MCH 30.6 25.7 - 32.2 pg [facility] MCHC 33.2 32.3 - 36.5 GM/DL [facility] RDW 16.0 (H) 11.6 - 14.4 % [facility] Platelets 269 150 - 450 K/CU MM [facility] MPV 9.7 9.4 - 12.4 fL [facility] nRBC 0 0 - 0 /100 WBC [facility] % Neutros 72 % [facility] % Lymphs 16 % [facility] % Monos 9 % [facility] % Eos 3 % [facility] % Baso 1 % [facility] # Neutros 5.39 (H) 1.78 - 5.38 K/L [facility] # Lymphs 1.17 (L) 1.32 - 3.57 K/L [facility] # Monos 0.64 0.30 - 0.82 K/L [facility] # Eos 0.23 0.04 - 0.54 K/L [facility] # Baso 0.05 0.01 - 0.08 K/L [facility] Immature 1 0 - 1 % [facility] Granulocytes-Relative [facility] Specimen Blood Performing Organization Address City/State/Zipcode Ph one Number [facility] [address] [place], [place] [address] MEDICAL CENTER * ECHOCARDIOGRAM REPORT - SCAN (06/19/2019 9:10 PM CDT) Narrative Performed At This result has an attachment that is n ot available. * Ammonia (06/19/2019 9:11 AM CDT) Only the most recent of 2 results within the time period is included. Ammonia 34 18 - 72 mol/L [facility] Specimen Blood Narrative Performed At Cell Liner CARLO MALONE [facility] Performing Organization Address City/[facility] Ph one Number [address] [address] [facility] * Hemoglobin A1c (06/19/2019 4:04 AM CDT) Hemoglobin A1C 5.8 4.3 - 6.1 % [facility] Specimen Blood Performing Organization Address [facility] one Number [address] [address] [facility] * ECG 12 lead (06/18/2019 5:31 PM CDT) Only the most recent of 2 results within the time period is included. Specimen Narrative Performed At Ventricular Rate 88 BPM GE MUSE Atrial Rate 88 BPM P-R Interval 148 ms QRS Duration 100 ms Q-T Interval 398 ms QTC Calculation(Bazett) 481 ms P [place] 56 degrees R [place] -3 degrees T [place] 87 degrees Normal sinus rhythm Prolonged QT [...] 398 ms QTC Calculation(Bazett) 481 ms P [place] 56 degrees R [place] -3 degrees T [place] 87 degrees Normal sinus rhythm Prolonged QT Abnormal ECG 18 JUN 2019 17:29 PVCs no longer seen Confirmed by MD GUTIERREZ YOCHAI ([id number]) on 06/19/2019 1:42:23 PM Performing Organization Address [facility] one Number GE MUSE * Rapid Influenza A&B Screen (06/18/2019 4:57 PM CDT) Rapid Influenza A Antigen Negative Negative, Inconclusi ve [facility] Rapid influenza B Antigen Negative Negative, Inconclusi ve [facility] Specimen Nasal Performing Organization Address City/State/Zipcode Ph one [place] [facility] [address] [place], [place] [address] MEDICAL CENTER * 2D Echo W/Doppler(CW/PW/Color) (06/18/2019 4:53 PM CDT) Ejection Fraction [facility] Specimen Narrative Performed At Transthoracic Echocardiography Report (TTE) [facility] Patient NameSLOGAN CALI of Study06/18/2019 E Male Visit [id number] Race Unknown Room [id number] Number Date of 1960 Referring Physician Age 58 year(s)[place] Targeting Supervisor Abed Josh Interpreting Physician JakubMD Procedure Type [...] Study 06/18/2019 E Gender Male Visit Number [id number] Race Unknown Room Number 2C36 Number Date of 1960 Referring Physician Age 58 year(s) [place] Targeting Supervisor Adrien Edmondsif Interpreting Physician JACOB Call Procedure [...] TR Gradient: 28.36 mmHg Performing Organization Address [facility] Ph one Number [facility] * Blood Culture - Routine (Right Venipuncture) (06/18/2019 4:46 PM CDT) Only the most recent of 2 results within the time period is included. Result No growth in 5 days [facility] Specimen Blood Performing Organization Address [facility] Ph one [address] [address] [facility] * ABORH, manual (06/18/2019 4:38 PM CDT) Rh Factor POS [facility] ABO Grouping O [facility] Specimen Blood Performing Organization Address [facility] one [address] [address] [facility] * XR chest 1 view portable / bedside (06/18/2019 3:56 PM CDT) Specimen Narrative Performed At FINAL REPORT [employer]Shelf TECHNIQUE: Frontal view of the chest. INDICATION: [...] Report Verified Date/Time: 0 16:16:50 Reading Location: [facility] C013[facility] CT Body Reading Room Procedure Note [...] Report Verified Date/Time: 06/18/2019 16:16:50 Reading Location: [facility] B1 C013Y CT Body Reading Room Performing Organization Address City/State/Zipcode Ph one Number RIS * Blood gas, arterial (06/18/2019 3:37 PM CDT) pH, Arterial 7.45 7.35 - 7.45 [facility] pCO2, Arterial 33 (L) 35 - 45 mmHg [facility] pO2, Arterial 83 80 - 90 mmHg [facility] O2 Sat, Arterial 96.7 96.0 - 97.0 % [facility] HCO3, Arterial 22 21 - 29 mmol/L [facility] Base Excess, Arterial -1.6 -2.0 - 3.0 mmol/L [facility] Patient Temperature 37.0 C [facility] FIO2 36.0 % [facility] Specimen Blood, Arterial Performing Organization Address [facility] one Number [place] [address] [facility] * Type and screen, automated (06/18/2019 3:36 PM CDT) ABO/RH AUTOMATED (BEAKER) O POSITIVE [facility] Ab Scrn NEGATIVE [facility] Specimen Blood Performing Organization Address [facility] Ph one Number [address] [phone] [facility] * PT/aPTT (06/18/2019 3:36 PM CDT) Protime 17.6 (H) 11.9 - 14.2 seconds [facility] INR 1.5 <=5.9 [facility] PTT 35.2 22.5 - 36.0 seconds [facility] Specimen Blood Narrative Performed At Effective 08/24/2018: PT Reference Range Change [facility] New: 11.9-14.2Previous: 11.7-14.7 [facility] MEDICAL CE NTER RECOMMENDED COUMADIN/WARFARIN INR THERA PY RANGES STANDARD DOSE: 2.0-3.0Includes: PRO PHYLAXIS for venous thrombosis, systemic embolization; TREATMENT for venous thro mbosis and/or pulmonary embolus. HIGH RISK: Target INR is 2.5-3.5 for pa tients wiht mechanical heart valves. Performing Organization Address [facility] one Number [address] [address] [facility] * Lactic acid, venous (06/18/2019 3:36 PM CDT) Lactate, Venous 1.02Comment: Specimen 0.50 - 2.20 mmol/L [facility] moderately hemolyzed [facility] Specimen Blood Narrative Performed At Cell Liner CARLO [place] [facility] Performing Organization Address City/[facility] Ph one Number [place] [address] [facility] * Hepatic function panel (06/18/2019 3:36 PM CDT) Protein, Total 6.6 6.0 - 8.3 gm/dL [facility] Albumin 3.3 (L) 3.5 - 5.0 g/dL [facility] Total Bilirubin 1.1 0.2 - 1.2 mg/dL [facility] Bilirubin, Direct 0.4 0.1 - 0.5 mg/dL [facility] Alkaline Phosphatase 106 40 - 150 U/L [facility] AST 27 5 - 34 U/L [facility] ALT 12 6 - 55 U/L [facility] Specimen Blood Narrative Performed At Cell Liner ID - AMERICO [place] [facility] Performing Organization Address City/[facility] Ph one Number [place] [address] [facility] * Comprehensive metabolic panel (06/18/2019 3:36 PM CDT) Protein, Total 6.6 6.0 - 8.3 gm/dL [facility] Albumin 3.3 (L) 3.5 - 5.0 g/dL [facility] Alkaline Phosphatase 106 40 - 150 U/L [facility] Total Bilirubin 1.1 0.2 - 1.2 mg/dL [facility] Sodium 142 136 - 145 meq/L [facility] Potassium 2.8 (L) 3.5 - 5.1 meq/L [facility] Chloride 111 (H) 98 - 107 meq/L [facility] CO2 22 22 - 29 meq/L [facility] BUN 33 (H) 7 - 21 mg/dL [facility] Creatinine 1.84 (H) 0.57 - 1.25 mg/dL [facility] Glucose 92 70 - 105 mg/dL [facility] Calcium 8.3 (L) 8.4 - 10.2 mg/dL [facility] AST 27 5 - 34 U/L [facility] ALT 12 6 - 55 U/L [facility] EGFR 38Comment: ESTIMATED GFR IS mL/min/1.73 sq m [facility] NOT ACCURATE CREATININE [facility] CLEARANCE IN PREDICTING GLOMERULAR FILTRATION RATE. ESTIMATED GFR IS NOT APPLICABLE FOR DIALYSIS PATIENTS. Specimen Blood Narrative Performed At Cell Liner ID - AMERICO [place] [facility] Performing Organization Address City/State/Zipcode Ph one Number [address] [facility] after 12/26/2018 Insurance Payer Benefit Subscriber ID Type Phone Address Plan / Group [facility] xxxxxxxxx MEDICARE MGD CARE MEDICARE O [phone] Advance Directives For more information, please contact: [place] [phone] Date Inactivated Comments Code Status Date Activated 07/11/2019 3:46 PM Full Code 06/18/2019 3:42 PM This code status was determined by: Patient
--- OUTSIDE RECORDS SUMMARY | 2019-12-27 21:53 | XMS REPORT | Continuity of Care Document ---
Author Author [facility] t Organization [facility] Address [address] [place] [address] Phone Unavailable Care Team Providers Care Business Analyst Ecommerce Name Role Phone MD Merle COTTON PCP Malissa LOBO Attphys Unavailable Jeniffer LOPEZ Attphys Unavailable Amy Bolanos MD Attphys Dai Alexander Attphys Unavailable AMY BOLANOS Attphys Unavailable Jeniffer LOPEZ Admphys Unavailable AMY BOLANOS Admphys Unavailable Payers Payer Name Policy Type Policy Number Effective Date Expiration Date Angelique delgado [facility] [id number] 2019 00:00:00 [facility] - MEDICARE MGD CAREUNITED MEDICARE HMOxxxxxxxxx xxxxxxxxx [facility] Problems Condition Name Condition Details Condition Category Status Onset Date Resolution Date Last Treatment Date Treating Clinician Comments Source Ileus Ileus Disease Active 2019-06-30 00:00:00 [facility] Acute on chronic congestive heart failure Acute on chr onic congestive heart failure Disease Active 2019-06-19 00:00:00 [facility] 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 Disease Active 2019-06-18 00:00:00 [facility] Chronic kidney disease Chronic kidney disease Disease Active 2019-06-18 00:00:00 [facility] History of ascending aortic repair History of ascending aortic r epair Disease Active 2019-06-18 00:00:00 [facility] History of recent pneumonia History of recent pneumonia Disease Active 2019-06-18 00:00:00 [facility] Cognitive impairment Cognitive impairment Disease Active 00:00:00 [facility] Diabetes mellitus Diabetes mellitus Disease Active 2019-06-18 00:00:00 [facility] DVT (deep venous thrombosis) DVT (deep venous thrombosis) Disease Active 2019-06-18 00:00:00 [facility] Hypertension Hypertension Disease Active 2019-06-18 00:00:00 [facility] Morbid obesity Morbid obesity Disease Active 2019-06-18 00:00:00 [facility] Leukocytosis Leukocytosis Disease Active 2019-06-18 00:00:00 [facility] Ileus Ileus Disease Active 2019-06-18 00:00:00 [facility] Coronary artery disease Coronary artery disease Disease Active 2019-06-18 00:00:00 [facility] Ischemic cardiomyopathy Ischemic cardiomyopathy Disease Active 2019-06-18 00:00:00 [facility] Hypoventilation associated with obesity Hypoventilation asso ciated with obesity Disease Active 2019-06-18 00:00:00 [facility] Depression Depression Disease Active 2019-06-18 00:00:00 [facility] Hypospadias Hypospadias Disease Active 2019-06-18 00:00:00 [facility] Encephalopathy Encephalopathy Disease Active 2019-06-18 00:00:00 [facility] Hypokalemia Hypokalemia Disease Active 2019-06-18 00:00:00 [facility] Acute renal failure superimposed on chronic kidney dis ease Acute renal failure superimposed on chronic kidney disease Disease Active 2019-06-18 00:00:00 [facility] Peripheral venous insufficiency Peripheral venous insufficiency Dis ease Active 2018-12-13 00:00:00 [facility] Degeneration of lumbosacral intervertebral disc Degene ration of lumbosacral intervertebral disc Disease Active 2015-01-18 00:00:00 [facility] Gastroesophageal reflux disease Gastroesophageal reflux disease Dis ease Active 2015-01-18 00:00:00 [facility] Generalized osteoarthritis Generalized osteoarthritis Disease Active 2015-01-18 00:00:00 [facility] Hyperlipidemia Hyperlipidemia Disease Active 2015-01-18 00:00:00 [facility] Thoracic radiculopathy Thoracic radiculopathy Disease Active 2015-01-18 00:00:00 [facility] Fatigue Problem Active [facility] Colitis Problem Active [facility] Urinary tract infection Problem Active [facility] Pneumonia Problem Active [facility] Allergies, Adverse Reactions, Alerts Allergy Name Allergy Type Status Severity Reaction(s) Onset Date Inacti ve Date Treating Clinician Comments Source Morphine Allergy to substance Active 2019-11-09 00:00:00 [facility] Oxycodone Allergy to substance Active 2019-11-09 00:00:00 [facility] morphine DA Active 2019-09-05 00:00:00 [facility] oxycodone DA Active 2019-09-05 00:00:00 [facility] morphine DA Active [place] 2019-08-02 00:00:00 [facility] oxycodone DA Active [place] 2019-08-02 00:00:00 [facility] No Known Allergies DA Active U 2019-07-26 00:00:00 [facility] Codeine Propensity to adverse reactions Active 2019-06-18 0 0:00:00 [facility] Morphine Propensity to adverse reactions Active 2019-06-18 00:00:00 [facility] Social History Social Habit Start Date Stop Date Quantity Comments Source History of tobacco use Cigarette Smoker [facility] Sex Assigned At [facility] Smoking Status Start Date Stop Date Source Former smoker 2019-06-26 00:00:00 2019-06-26 00:00:00 [facility] Medications Ordered Medication Name Filled Medication Name Start Date Stop Da te Current Medication? Ordering Clinician Indication Dosage Frequency Signature (SIG) Comments Components Source Lorazepam Lorazepam 2019-11-22 09:23:00 Yes 1 Every 4 Hours as needed for Agitation [facility] Divalproex Sodium (Depakote) 250 Mg TABEC Divalproex S odium (Depakote) 250 Mg TABEC 2019-11-22 09:22:00 Yes 250 Twice A Day [facility] Ferrous Sulfate Ferrous Sulfate 2019-11-22 09:22:00 Yes 325 Twice Daily With Meals [facility] Lactobacillus Acidophilus Lactobacillus Acidophilus 2019-11-22 09:22:0 0 Yes 1 Twice A Day [facility] Levothyroxine Sodium (Synthroid) 50 Mcg TAB Levothyrox ine Sodium (Synthroid) 50 Mcg TAB 2019-11-22 09:22:00 Yes 50 Daily@06 [facility] Metronidazole (Flagyl) 500 Mg TABLET Metronidazole (Flagyl) 500 Mg TABLET 2019-11-22 09:22:00 Yes 500 Every 8 Hours [facility] Vancomycin Hcl (Vancocin Hcl) 250 Mg CAPSULE Vancomyci n Hcl (Vancocin Hcl) 250 Mg CAPSULE 2019-11-22 09:22:00 Yes 250 Every 6 Hours [facility] magnesium oxide (MAG-OX) 400 mg (241.3 mg magnesium) tablet 2019-07-12 00:00:00 Yes 400mg QD Take 1 tablet (400 mg total) by mouth daily. [facility] spironolactone (ALDACTONE) 50 MG tablet 2019-07-12 00:00:00 Yes 50mg QD Take 1 tablet (50 mg total) by mouth daily. [facility] tamsulosin (FLOMAX) 0.4 mg Cap 24 hr capsule 2019-07-12 00:00:00 Yes .4mg QD Take 1 capsule (0.4 mg total) by mouth daily. [facility] levothyroxine (SYNTHROID, LEVOTHROID) 175 MCG tablet 2019-07-12 00:00:00 2020-07-11 23:59:00 No 175ug Take 1 tablet (175 mcg total) by mouth Every morning on an empty stomach. [facility] potassium chloride 20 mEq TbER 2019-07-11 10:36:08 2019-07-11 00 :00:00 No 1{tbl} Q24H Take 1 tablet by mouth daily. [facility] furosemide (LASIX) 40 MG tablet 2019-07-11 10:36:08 00:00:00 No 40mg QD Take 40 mg by mouth daily. [facility] QUEtiapine (SEROQUEL) 25 MG tablet 2019-07-11 00:00:00 Yes 25mg Q.5D Take 1 tablet (25 mg total) by mouth 2 (two) times daily. [facility] acetaminophen (TYLENOL) 325 MG tablet 2019-07-11 00:00:00 Y es 650mg Take 2 tablets (650 mg total) by mouth every 6 (six) hours as needed. [facility] apixaban (ELIQUIS) 5 mg Tab tablet 2019-07-11 00:00:00 Yes 5mg Q.5D Take 1 tablet (5 mg total) by mouth 2 (two) times daily. [facility] lactulose (CHRONULAC) 20 gram/30 mL solution 2019-07-11 00:00:00 Yes 20g Q.[id number] Take 30 mLs (20 g total) by mouth 3 ( three) times daily. [facility] met[facility] tart[facility] 75 mg Tab 2019-07-11 00:00:00 Yes 75mg Q.5D Take 75 mg by mouth 2 (two) times daily. [facility] simethicone (MYLICON) 80 MG chewable tablet 2019-07-11 00:00:00 Yes 160mg Q.5D Take 2 tablets (160 mg total) by mouth 2 (two) times d aily. [facility] aspirin 81 MG EC tablet 2019-06-19 13:19:23 Yes 81mg QD Take 81 mg by mouth daily. [facility] amLODIPine (NORVASC) 5 MG tablet 2019-06-19 13:19:23 Yes 5mg QD Take 5 mg by mouth daily. [facility] simvastatin (ZOCOR) 20 MG tablet 2019-06-19 13:19:22 Yes 20mg QD Take 20 mg by mouth nightly. [facility] omeprazole (PRILOSEC) 20 MG capsule 2019-06-19 13:19:22 Yes 20mg QD Take 20 mg by mouth daily. [facility] cyclobenzaprine (FLEXERIL) 10 MG tablet 2019-04-24 00:00:00 Yes 10mg Take 10 mg by mouth 3 (three) times daily as needed. [facility] lidocaine (XYLOCAINE) 5 % ointment 2019-04-19 00:00:00 Y es 1{application} Apply 1 application topically as needed. [facility] QUEtiapine (SEROQUEL) 25 MG tablet 2019-04-14 00:00:00 00:00:00 No 25mg Q.[id number] Take 25 mg by mouth 3 (thre e) times daily. [facility] metoprolol succinate (TOPROL-XL) 100 MG 24 hr tablet 2019-04-14 00:00:00 2019-07-11 00:00:00 No 100mg QD Take 100 mg by mouth daily. [facility] Vital Signs Vital Name Observation Time Observation Value Comments Source Weight 2019-12-27 19:34:00 214 [lb_av] [facility] BMI (Body Mass Index) 2019-12-27 19:34:00 26.0 kg/m2 [facility] Body Temperature 2019-11-22 11:30:00 98.6 [degF] [facility] Weight 2019-11-14 17:40:00 214.38 [lb_av] [facility] BMI (Body Mass Index) 2019-11-14 17:40:00 26.1 kg/m2 [facility] Weight 2019-11-09 19:47:00 250 [lb_av] [facility] BMI (Body Mass Index) 2019-11-09 19:47:00 29.6 kg/m2 [facility] Systolic blood pressure 2019-07-11 11:47:00 145 mm[Hg] [facility] Diastolic blood pressure 2019-07-11 11:47:00 67 mm[Hg] [facility] Heart rate 2019-07-11 11:47:00 61 /min [facility] Body temperature 2019-07-11 11:47:00 35.78 Eva [facility] Respiratory rate 2019-07-11 11:47:00 18 /min [facility] Oxygen saturation in Arterial blood by Pulse oximetry 07-10 11:47:00 97 /min [facility] Body weight Measured 2019-07-03 04:16:00 130.7 kg [facility] BMI 2019-07-03 04:16:00 34.17 kg/m2 [facility] Body height 2019-06-19 10:15:00 195.6 cm [facility] Procedures Procedure Date / Time Performed Performing Clinician [facility] Computed tomography of brain without radiopaque contrast 2019-11 00:00:00 [facility] INSERTION OF INFUSION DEV INTO SUP VENA CAVA, PERC APPROACH 2019-11-16 00:00:00 [facility] Computed tomography of brain without radiopaque contrast 2019-10 00:00:00 [facility] Computed tomography of abdomen and pelvis with contrast 00:00:00 [facility] RHYTHM STRIP - SCAN 2019-07-14 14:50:46 Provider, Default Scanni ng [facility] RHYTHM STRIP - SCAN 2019-07-13 11:11:09 Provider, Default Scanni ng [facility] XR ABDOMEN / KUB 1 VIEW 2019-07-11 07:04:00 Fabiana Reynaga [facility] CBC (HEMOGRAM ONLY) 2019-07-11 04:42:00 Joe Fine [facility] BASIC METABOLIC PANEL (7) 2019-07-11 04:42:00 Joe Fine Pet er [facility] MAGNESIUM 2019-07-11 04:42:00 Joe Fine [facility] PROTHROMBIN TIME/INR 2019-07-11 04:42:00 Joe Fine [facility] APTT 2019-07-11 04:42:00 Joe Fine [facility] PHOSPHORUS 2019-07-11 04:42:00 Joe Fine [facility] TSH 2019-07-10 18:38:00 Gordo Watkins [facility] XR ABDOMEN / KUB 1 VIEW 2019-07-10 06:57:00 Fabiana Reynaga [facility] CBC (HEMOGRAM ONLY) 2019-07-10 04:39:00 Joe Fine [facility] BASIC METABOLIC PANEL (7) 2019-07-10 04:39:00 Babatunde Joetess Wilkinson [facility] MAGNESIUM 2019-07-10 04:39:00 Joe Fine [facility] PROTHROMBIN TIME/INR 2019-07-10 04:39:00 Joe Fine [facility] APTT 2019-07-10 04:39:00 Joe Fine [facility] PHOSPHORUS 2019-07-10 04:39:00 Joe Fine [facility] XR ABDOMEN / KUB 1 VIEW 2019-07-09 06:34:00 Art Avendaño [facility] CBC (HEMOGRAM ONLY) 2019-07-09 04:29:00 Joe Fine [facility] BASIC METABOLIC PANEL (7) 2019-07-09 04:29:00 Babatunde Joe [facility] MAGNESIUM 2019-07-09 04:29:00 Joe Fine [facility] PROTHROMBIN TIME/INR 2019-07-09 04:29:00 Joe Fine [facility] APTT 2019-07-09 04:29:00 Joe Fine [facility] PHOSPHORUS 2019-07-09 04:29:00 Babatunde Joe [facility] CBC (HEMOGRAM ONLY) 2019-07-08 04:25:00 Joe Fine [facility] BASIC METABOLIC PANEL (7) 2019-07-08 04:25:00 Babatunde Joe [facility] MAGNESIUM 2019-07-08 04:25:00 Joe Fine [facility] PROTHROMBIN TIME/INR 2019-07-08 04:25:00 Babatunde Joetess Reyes [facility] APTT 2019-07-08 04:25:00 Babatunde Joe [facility] PHOSPHORUS 2019-07-08 [facility]:[address] [facility] XR ABDOMEN / KUB 1 VIEW 2019-07-08 04:10:00 Art Avendaño [facility] POTASSIUM 2019-07-07 14:44:00 [facility] MAGNESIUM 2019-07-07 14:44:00 Beverley-Smart, [facility] CBC (HEMOGRAM ONLY) 2019-07-07 07:24:00 Babatunde Joe [facility] BASIC METABOLIC PANEL (7) 2019-07-07 07:24:00 Babatunde Joetess Wilkinosn [facility] MAGNESIUM 2019-07-07 07:24:00 Joe Fine [facility] PROTHROMBIN TIME/INR 2019-07-07 07:24:00 Joe Fine [facility] APTT 2019-07-07 07:24:[address] [facility] PHOSPHORUS 2019-07-07 07:24:00 [facility] XR ABDOMEN / KUB 1 VIEW 2019-07-07 04:01:00 Art Avendaño [facility] CBC (HEMOGRAM ONLY) 2019-07-06 05:44:00 Babatunde Joe [facility] BASIC METABOLIC PANEL (7) 2019-07-06 05:44:00 Joe Fine [facility] MAGNESIUM 2019-07-06 05:44:00 Joe Fine [facility] PROTHROMBIN TIME/INR 2019-07-06 05:44:00 Joe Fine [facility] APTT 2019-07-06 05:44:00 Joe Fine [facility] PHOSPHORUS 2019-07-06 05:44:00 Joe Fine [facility] XR ABDOMEN / KUB 1 VIEW 2019-07-06 04:01:00 Art Avendaño [facility] POTASSIUM 2019-07-05 17:18:00 Beverley-Smart, [facility] XR ABDOMEN / KUB 1 VIEW 2019-07-05 07:17:00 Beverley-Smart, [facility] CBC (HEMOGRAM ONLY) 2019-07-05 03:58:00 Joe Fine [facility] BASIC METABOLIC PANEL (7) 2019-07-05 03:58:00 Babatunde Joetess Wilkinson [facility] MAGNESIUM 2019-07-05 03:58:00 Joe Fine [facility] PROTHROMBIN TIME/INR 2019-07-05 03:58:00 Joe Fine [facility] APTT 2019-07-05 03:58:00 Joe Fine [facility] PHOSPHORUS 2019-07-05 03:58:00 Joe Fine [facility] POTASSIUM 2019-07-04 16:01:00 Beverley-Smart, [facility] CBC (HEMOGRAM ONLY) 2019-07-04 04:30:00 Joe Fine [facility] BASIC METABOLIC PANEL (7) 2019-07-04 04:30:00 Babatunde Joe [facility] MAGNESIUM 2019-07-04 04:30:00 Joe Fine [facility] PROTHROMBIN TIME/INR 2019-07-04 04:30:00 Joe Fien [facility] APTT 2019-07-04 04:30:00 Joe Fine [facility] PHOSPHORUS 2019-07-04 04:30:00 Joe Fine [facility] TSH 2019-07-04 04:30:00 Kasi Ronorio [facility] POTASSIUM 2019-07-03 16:18:00 Anette Horowitz [facility] MAGNESIUM 2019-07-03 16:18:00 [facility] KUB 1 VIEW 2019-07-03 07:52:00 Palomo Quinn [facility] CBC (HEMOGRAM ONLY) 2019-07-03 05:32:00 Joe Fine [facility] BASIC METABOLIC PANEL (7) 2019-07-03 05:32:00 Joe Fine [facility] MAGNESIUM 2019-07-03 05:32:00 Joe Fine [facility] PROTHROMBIN TIME/INR 2019-07-03 05:32:00 Joe Fine [facility] APTT 2019-07-03 05:32:00 Joe Fine [facility] PHOSPHORUS 2019-07-03 05:32:00 Joe Fine [facility] XR ABDOMEN / KUB 1 VIEW 2019-07-02 06:18:00 Palomo Quinn [facility] CBC (HEMOGRAM ONLY) 2019-07-02 04:52:00 Joe Fine [facility] BASIC METABOLIC PANEL (7) 2019-07-02 04:52:00 Joe Fine [facility] MAGNESIUM 2019-07-02 04:52:00 Joe Fine [facility] PROTHROMBIN TIME/INR 2019-07-02 04:52:00 Joe Fine [facility] APTT 2019-07-02 04:52:00 Joe Fine [facility] PHOSPHORUS 2019-07-02 04:52:[address] [facility] XR ABDOMEN / KUB 1 VIEW 2019-07-01 06:47:00 Palomo Quinn [facility] CBC (HEMOGRAM ONLY) 2019-07-01 04:41:00 Joe Fine [facility] BASIC METABOLIC PANEL (7) 2019-07-01 04:41:00 Joe Fine [facility] MAGNESIUM 2019-07-01 04:41:00 Babatunde Joe [facility] PROTHROMBIN TIME/INR 2019-07-01 04:41:00 Joe Fine [facility] APTT 2019-07-01 04:41:00 Baabtunde Joe [facility] PHOSPHORUS 2019-07-01 04:41:[address] [facility] MAGNESIUM 2019-06-30 17:24:[address] [facility] POTASSIUM 2019-06-30 17:24:[address] [facility] XR ABDOMEN / KUB 1 VIEW 2019-06-30 07:02:00 Palomo Quinn [facility] CBC (HEMOGRAM ONLY) 2019-06-30 04:23:00 Babatunde Joe [facility] BASIC METABOLIC PANEL (7) 2019-06-30 04:23:00 Joe Fine [facility] MAGNESIUM 2019-06-30 04:23:00 Babatunde Joe [facility] PROTHROMBIN TIME/INR 2019-06-30 04:23:00 Babatunde Joetess Reyes [facility] APTT 2019-06-30 04:23:[address] [facility] PHOSPHORUS 2019-06-30 04:23:00 Babatunde Joe [facility] POTASSIUM 2019-06-29 13:04:00 Beverley-Smart, Simah [facility] CBC (HEMOGRAM ONLY) 2019-06-29 04:57:00 Joe Fine [facility] BASIC METABOLIC PANEL (7) 2019-06-29 04:57:00 Joe Fine [facility] MAGNESIUM 2019-06-29 04:57:00 Joe Fine [facility] PROTHROMBIN TIME/INR 2019-06-29 04:57:00 Joe Fine CH, I [facility] APTT 2019-06-29 04:57:00 Joe Fine [facility] PHOSPHORUS 2019-06-29 04:57:00 Joe Fine [facility] CT ABDOMEN/PELVIS WITHOUT IV CONTRAST 2019-06-29 01:07:00 Fabiana Adam [facility] POTASSIUM 2019-06-28 22:18:00 Beverley-Smart, Sim[facility] XR ABDOMEN / KUB 1 VIEW 2019-06-28 13:57:00 Beverley-Smart, [facility] CBC (HEMOGRAM ONLY) 2019-06-28 05:26:00 Joe Fine [facility] BASIC METABOLIC PANEL (7) 2019-06-28 05:26:00 Babatunde Joetess Wilkinson [facility] MAGNESIUM 2019-06-28 05:26:00 Joe Fine [facility] PROTHROMBIN TIME/INR 2019-06-28 05:26:00 Joe Fine CH, I [facility] APTT 2019-06-28 05:26:00 Joe Fine [facility] PHOSPHORUS 2019-06-28 05:26:00 Joe Fine [facility] CBC (HEMOGRAM ONLY) 2019-06-27 04:36:00 Joe Fine [facility] BASIC METABOLIC PANEL (7) 2019-06-27 04:36:00 Joe Fine [facility] MAGNESIUM 2019-06-27 04:36:00 Joe Fine [facility] PROTHROMBIN TIME/INR 2019-06-27 04:36:00 Joe Fine [facility] APTT 2019-06-27 04:36:00 Joe Fine [facility] PHOSPHORUS 2019-06-27 04:36:00 Joe Fine [facility] TSH 2019-06-27 04:36:00 Joe Fine [facility] POCT-GLUCOSE METER 2019-06-26 08:43:00 Nestor Bolanos [facility] CBC (HEMOGRAM ONLY) 2019-06-26 05:40:00 Joe Fine [facility] BASIC METABOLIC PANEL (7) 2019-06-26 05:40:00 Joe Fine [facility] MAGNESIUM 2019-06-26 05:40:00 Joe Fine [facility] PROTHROMBIN TIME/INR 2019-06-26 05:40:00 Joe Fine [facility] APTT 2019-06-26 05:40:00 Joe Fine [facility] PHOSPHORUS 2019-06-26 05:40:00 Babatunde Joetess Reyes [facility] POCT-GLUCOSE METER 2019-06-25 21:00:00 [facility] POCT-GLUCOSE METER 2019-06-25 16:43:00 [facility] POCT-GLUCOSE METER 2019-06-25 07:58:00 [facility] CBC (HEMOGRAM ONLY) 2019-06-25 05:27:00 Joe Fine [facility] BASIC METABOLIC PANEL (7) 2019-06-25 05:27:00 Babatunde Joetess Wilkinson [facility] MAGNESIUM 2019-06-25 05:27:00 Babatunde Joetess Reyes [facility] PROTHROMBIN TIME/INR 2019-06-25 05:27:00 Joe Fine [facility] APTT 2019-06-25 05:27:00 Babatunde Joetess Reyes [facility] PHOSPHORUS 2019-06-25 05:27:00 Joe Fine [facility] POCT-GLUCOSE METER 2019-06-24 20:56:00 Nestor Bolanos Amy [facility] POCT-GLUCOSE METER 2019-06-24 16:46:00 [facility] POCT-GLUCOSE METER 2019-06-24 12:23:00 [facility] POCT-GLUCOSE METER 2019-06-24 07:46:00 [facility] CBC (HEMOGRAM ONLY) 2019-06-24 04:57:00 Joe Fine [facility] BASIC METABOLIC PANEL (7) 2019-06-24 04:57:00 Joe Fine er [facility] MAGNESIUM 2019-06-24 04:57:00 Joe Fine [facility] PROTHROMBIN TIME/INR 2019-06-24 04:57:00 Joe Fine [facility] APTT 2019-06-24 04:57:00 Joe Fine [facility] PHOSPHORUS 2019-06-24 04:57:00 Jeo Fine [facility] POCT-GLUCOSE METER 2019-06-23 20:58:00 [facility] TRANSFUSION SERVICE REPORT - SCAN 2019-06-23 17:50:36 Provid er, Default Scanning [facility] POCT-GLUCOSE METER 2019-06-23 17:14:00 Nestor Bolanos [facility] POTASSIUM 2019-06-23 14:29:00 Joe Fine [facility] XR KNEE LEFT 1 OR 2 VIEWS 2019-06-23 10:53:00 Beverley-Smart, Sim[place] [facility] POCT-GLUCOSE METER 2019-06-23 09:15:00 [facility] CBC (HEMOGRAM ONLY) 2019-06-23 05:01:00 Joe Fine [facility] BASIC METABOLIC PANEL (7) 2019-06-23 05:01:00 Joe Fine er [facility] MAGNESIUM 2019-06-23 05:01:00 Joe Fine [facility] PROTHROMBIN TIME/INR 2019-06-23 05:01:00 Joe Fine [facility] APTT 2019-06-23 05:01:00 Joe Fine [facility] PHOSPHORUS 2019-06-23 05:01:00 Joe Fine [facility] PREPARE LEUKO-REDUCED RBC 2019-06-22 23:54:00 Beverley-Smart, [place] [facility] POTASSIUM 2019-06-22 21:29:00 David Perez [facility] POCT-GLUCOSE METER 2019-06-22 21:05:00 [facility] TRANSFUSION SERVICE REPORT - SCAN 2019-06-22 17:50:32 Provid er, Default Scanning [facility] BASIC METABOLIC PANEL (7) 2019-06-22 16:43:00 David Peerz [facility] POCT-GLUCOSE METER 2019-06-22 11:45:00 [facility] POCT-GLUCOSE METER 2019-06-22 07:40:00 [facility] BASIC METABOLIC PANEL (7) 2019-06-22 07:04:00 David Perez [facility] CBC (HEMOGRAM ONLY) 2019-06-22 07:04:00 Joe Fine [facility] MAGNESIUM 2019-06-22 07:04:00 Joe Fine [facility] PROTHROMBIN TIME/INR 2019-06-22 07:04:00 Joe Fine [facility] APTT 2019-06-22 07:04:00 Joe Fine [facility] POCT-GLUCOSE METER 2019-06-21 21:05:00 [facility] BASIC METABOLIC PANEL (7) 2019-06-21 20:38:00 GotinyDavid Art alfreda [facility] MAGNESIUM 2019-06-21 20:38:00 Claude Neumann [facility] TRANSFUSE LEUKO-REDUCED RED BLOOD CELLS 2019-06-21 17:00:46 Akpa n-Smart, [facility] POCT-GLUCOSE METER 2019-06-21 16:01:00 [facility] ([facility] 2019-06-21 13:53:00 Beverley-Smart, [facility] POCT-GLUCOSE METER 2019-06-21 12:08:00 [facility] [facility] POCT-GLUCOSE METER 2019-06-21 07:47:00 [facility] 2019-06-21 05:42:00 Babatunde Joetess Reyes [facility] BASIC METABOLIC PANEL (7) 2019-06-21 05:42:00 Babatunde Joetess Wilkinson [facility] MAGNESIUM 2019-06-21 05:42:00 Babatunde Joetess Reyes [facility] PROTHROMBIN TIME/INR 2019-06-21 05:42:00 Babatunde Joetess Reyes [facility] APTT 2019-06-21 05:42:00 Babatunde Joe [facility] POCT-GLUCOSE METER 2019-06-20 21:18:00 Cesar [facility] BASIC METABOLIC PANEL (7) 2019-06-20 20:52:00 Joe Fine [facility] MAGNESIUM 2019-06-20 20:52:00 Babatunde Joetess Reyes [facility] PHOSPHORUS 2019-06-20 20:52:00 Babatunde Joe [facility] POCT-GLUCOSE METER 2019-06-20 15:33:00 [facility] W/PLT COUNT & AUTO DIFFERENTIAL 2019-06-20 14:12:00 Zeferino Ceballos i [facility] POCT-GLUCOSE METER 2019-06-20 11:44:00 Nestor Bolanos [facility] XR ABDOMEN / KUB 1 VIEW 2019-06-20 11:27:00 Anette Horowitz [facility] BASIC METABOLIC PANEL (7) 2019-06-20 08:07:00 Claude Neumann [facility] POCT-GLUCOSE METER 2019-06-20 07:54:00 Nestor Bolanos [facility] CBC (HEMOGRAM ONLY) 2019-06-20 01:15:00 Joe Fine [facility] MAGNESIUM 2019-06-20 01:14:00 Anette Horowitz [facility] BASIC METABOLIC PANEL (7) 2019-06-20 01:14:00 Joe Fine [facility] PROTHROMBIN TIME/INR 2019-06-20 01:14:00 Joe Fine [facility] APTT 2019-06-20 01:14:00 Babatunde Joe [facility] ECHOCARDIOGRAM REPORT - SCAN 2019-06-19 21:10:46 Provider, Tom lt Scanning [facility] TRANSFUSION SERVICE REPORT - SCAN 2019-06-19 17:51:59 Provid er, Default Scanning [facility] BASIC METABOLIC PANEL (7) 2019-06-19 15:24:00 David Perez [facility] AMMONIA 2019-06-19 09:11:00 David Perez [facility] CBC (HEMOGRAM ONLY) 2019-06-19 04:04:00 Joe Fine [facility] BASIC METABOLIC PANEL (7) 2019-06-19 04:04:00 Joe Fine [facility] MAGNESIUM 2019-06-19 04:04:00 Joe Fine [facility] PHOSPHORUS 2019-06-19 04:04:00 Joe Fine [facility] PROTHROMBIN TIME/INR 2019-06-19 04:04:00 Joe Fine [facility] APTT 2019-06-19 04:04:00 Joe Fine [facility] HEMOGLOBIN A1C 2019-06-19 04:04:00 Joe Fine [facility] TSH 2019-06-19 04:04:00 Joe Fine [facility] POTASSIUM 2019-06-19 00:22:00 Joe Fine [facility] BASIC METABOLIC PANEL (7) 2019-06-19 00:22:00 Anette Horowitz [facility] MAGNESIUM 2019-06-19 00:22:00 Anette Horowitz [facility] POTASSIUM 2019-06-18 20:20:00 Joe Fine [facility] MAGNESIUM 2019-06-18 20:20:00 Joe Fine [facility] ECG 12-LEAD 2019-06-18 17:31:20 Unknown, [facility] ECG 12-LEAD 2019-06-18 17:30:20 Unknown, 7 [facility] ECG 12-LEAD 2019-06-18 17:29:36 Unknown, [facility] RAPID INFLUENZA A&B SCREEN 2019-06-18 16:57:00 Joe Fine Pe [facility] 2D ECHO W/ DOPPLER (CW/PW/COLOR) 2019-06-18 16:53:42 Justin Fine [facility] BLOOD CULTURE 2019-06-18 16:46:00 Joe Fine [facility] BLOOD CULTURE 2019-06-18 16:40:00 Joe Fine [facility] AMMONIA 2019-06-18 16:38:00 Joe Fine [facility] ABORH, MANUAL 2019-06-18 16:38:00 Tiki Mcarthur [facility] XR ABDOMEN / KUB 1 VIEW 2019-06-18 16:08:00 Joe Fine [facility] XR CHEST 1 VIEW PORTABLE/BEDSIDE 2019-06-18 15:56:00 Justin Fine [facility] BLOOD GAS, ARTERIAL 2019-06-18 15:37:00 Joe Fine [facility] COMPREHENSIVE METABOLIC PANEL 2019-06-18 15:36:00 Joe iFne [facility] HEPATIC FUNCTION PANEL 2019-06-18 15:36:00 Joe Fine [facility] LACTIC ACID, VENOUS 2019-06-18 15:36:00 Joe Fine [facility] PT/APTT 2019-06-18 [facility]:36[facility] PROTHROMBIN TIME/INR 2019-06-18 15:36:00 Joe Fine [facility] MAGNESIUM 2019-06-18 15:36:00 Joe Fine [facility] PHOSPHORUS 2019-06-18 15:36:00 Joe Fine [facility] TYPE AND SCREEN, AUTOMATED 2019-06-18 15:36:00 Joe Fine Pe [facility] CBC W/PLT COUNT & AUTO DIFFERENTIAL 2019-06-18 15:36:00 [facility] Encounters Start Date/Time End Date/Time Encounter Type Admission Type [facility] Care Department Encounter ID Source 2019-12-27 19:16:00 2019-12-27 21:35:00 Departed Emergency Room 1 BERTRAM LOBO [facility] [id number] [facility] 2019-11-14 14:40:00 2019-11-22 13:29:00 Discharged Inpatient 1 SAMMY LOPEZ [facility] [id number] [facility] 2019-11-09 20:30:00 2019-11-09 21:22:00 Departed Emergency Room [facility] [id number] [facility] Results Test Description Test Time Test Comments Results Result Comments Source CHEST SINGLE (PORTABLE) 2019-12-27 20:48:00 [facility] [address] [address] Patient Name: INDIANA BRYAN MR #: [id number] : 1960 Age/Sex: 59/M Req #: [id number] Adm Physician: Ordered by: BERTRAM LOBO MD Report #: [id number] Location: ER Room/Bed: Procedure: [id number] DX/CHEST SINGLE (PORTABLE) Exam Date: 12/27/19 Exam Time: 1954 REPORT STATUS: Signed EXAMINATION: CHEST SINGLE (PORTABLE) INDICATION: fever COMPARISON: Multiple prior chest x-ray examinations most recent dated 11/21/2019. FINDINGS: AP view TUBES and LINES: None. . LUNGS/PLEURA: Lungs are well inflated. There are bilateral interstitial opacities likely representing pulmonary edema.. Right basilar opacity is seen could represent pneumonia in appropriate clinical setting. There is no pleural effusion or pneumothorax. HEART AND MEDIASTINUM: Cardiac size is mildly enlarged. BONES AND SOFT TISSUES: Midline sternotomy wires are present. No acute osseous lesion. Soft tissues are unremarkable. UPPER ABDOMEN: No free air under the diaphragm. IMPRESSION: Mild cardiomegaly with pulmonary edema. Right basilar opacity is seen could represent pneumonia in the appropriate clinical setting Signed by: Tru Howell MD on 12/27/2019 8:49 PM Dictated By: TRU HOWELL MD 48 Transcribed By: EARL on 12/27/192048 COPY TO: BERTRAM LOBO MD Urine color determination 2019-12-27 20:30:00 Test Item Urine Color (test code = 5778-6) STRAW YELLOW [facility] [id number] 20:30:00* Test Item Value Reference Range Interpretation Comments Urine Clarity (test code = 27525-6) SL CLOUDY CLEAR [facility] gravity of Urine by Test strip 2019-12-27 20:30:00* Test Item Value Reference Range Interpretation Comments Urine Specific [place] (test code = 5811-5) 1.025 1.010-1.02 5 [facility] by automated test [id number] 20:30:00* Test Item Value Reference Range Interpretation Comments Urine pH (test code = 89640-5) 6 5-7 [facility] leukocyte esterase detection by puxykvtu8365-71-83 20:30:00* Test Item Value Reference Range Interpretation Comments Urine Leukocyte Esterase (test code = 5799-2) NEGATIVE NEGATIVE [facility]roe[facility] nitrite vzuutgaem4941-13-19 20:30:00* Test Item Value Reference Range Interpretation Comments Urine Nitrite (test code = 63425-9) POSITIVE NEGATIVE [facility] protein measurement by test strip (mass/volume)2019-12-27 20:30:00* Test Item Value Reference Range Interpretation Comments Urine Protein (test code = 5804-0) NEGATIVE NEGATIVE [facility] glucose ueyxsbjpw3392-44-60 20:30:00* Test Item Value Reference Range Interpretation Comments Urine Glucose (UA) (test code = 2349-9) NEGATIVE NEGATIVE [facility] ketones detection by automated test ielzw5336-19-13 20:30:00* Test Item Value Reference Range Interpretation Comments Urine Ketones (test code = 07991-0) NEGATIVE NEGATIVE [facility] urobilinogen measurement by test strip (mass/volume)2019-12-27 20:30:00* Test Item Value Reference Range Interpretation Comments Urine Urobilinogen (test code = 81317-4) 0.2 0.2-1 [facility] total bilirubin measurement (mass/volume)2019-12-27 20:30:00* Test Item Value Reference Range Interpretation Comments Urine Bilirubin (test code = 1978-6) NEGATIVE NEGATIVE [facility] erythrocytes cetectvuc2687-46-90 20:30:00* Test Item Value Reference Range Interpretation Comments Urine Blood (test code = 32796-6) NEGATIVE NEGATIVE [facility]roeAutomated urine sediment leukocyte count by microscopy (number/high power field)2019-12-27 20:30:00* Test Item Value Reference Range Interpretation Comments Urine WBC (test code = 5821-4) 6-10 0-5 [facility]roeErythrocytes detection in urine sediment by light vbtjgylkdi8828-06-17 20:30:00* Test Item Value Reference Range Interpretation Comments Urine RBC (test code = 97132-0) NONE 0-5 [facility]roeBacteria detection in urine sediment by light mfqidxqxua9713-67-43 20:30:00* Test Item Value Reference Range Interpretation Comments Urine Bacteria (test code = 82618-3) MANY NONE [facility]roeEpithelial cells detection in urine sediment by light osavseyyuu6627-26-27 20:30:00* Test Item Value Reference Range Interpretation Comments Urine Epithelial Cells (test code = 25188-1) FEW NONE [facility]roeAmorphous sediment detection in urine sediment by light ucoqbvufsz6319-86-86 20:30:00* Test Item Value Reference Range Interpretation Comments Urine Amorphous Sediment (test code = 8246-1) MODERATE FEW [facility]roeCT BRAIN [id number] 20:20:00 [facility] [address] [address] Patient Name: INDIANA BRYAN MR #: [id number] : 1960 Age/Sex: 59/M Req #: [id number] Adm Physician: Ordered by: BERTRAM LOBO MD Report #: [id number] Location: Room/Bed: Procedure: [id number] CT/CT B SHERMAN CAMPBELL Exam Date: 12/27/19 Exam Time: 1956 REPORT STATUS: Signed EXAMINATION: Head CT HISTORY: 59-year-old male with altered mental status, abnormal behavior , fever. COMPARISON: None. TECHNIQUE: Helical axial images of the head were obtained. Reformatted coronal and sagittal images from the axial data. Dose modulation, iterative reconstruction, and/or weight based adjustment of the mA /kV was utilized to reduce the radiation dose to as low as reasonably achievab le. FINDINGS: Parenchyma: 1. Cortical subcortical encephaloma lacia in the left superior/middle frontal gyri, likely the sequela from remote ischemia, partially involving the left precentral cortex anteriorly. 2. A few scattered white matter hypodensities, most likely correspond to nonspecifi c chronic microvascular ischemic changes. 3. No mass or hemorrhage. No CT ana rosa dence of acute territorial vascular insult. Extra-axial spaces: No abnormal density. No extra-axial fluid collections Brain volume: Norm al for age. Ventricles: No hydrocephalus or displacement. Arter ies: No density suggestive of thrombus. Dural sinuses: No abnormal densi ty. Foramen magnum: No mass, Chiari malformation, or basilar invaginatio n. Sella: No obvious mass. Paranasal/mastoid sinuses: Hypopneum atization and sclerosis of the left masseter cells with partial opacification, likely related to chronic inflammatory process. Otherwise clear Skull /Scalp: No lytic or blastic lesions. No fractures. IMPRESSION: 1. N o acute intracranial hemorrhage, mass or cortical infarcts. 2. 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 3. Minimal chronic microvascula r ischemic changes. Signed by: Dr. Dipak Clifford M.D. on 12/27/2019 8:24 PM Dictated By: DIPAK CLIFFORD MD 23 Transcribed By: EARL on 12/27/192023 COPY TO: BERTRAM POWELL MD Blood leukocytes automated count (number/volume) 2019-12-27 19:19:00* Test Item Value Reference Range Interpretation Comments White Blood Count (test code = 6690-2) 13.50 4.8-10.8 [facility] erythrocytes automated count (number/volume)2019-12-27 19:19:00* Test Item Value Reference Range Interpretation Comments Red Blood Count (test code = 789-8) 2.95 4.3-5.7 [facility] hemoglobin measurement (moles/volume)2019-12-27 19:19:00* Test Item Value Reference Range Interpretation Comments Hemoglobin (test code = 52154-1) 8.4 14.0-18.0 [facility]roeAutomated blood hematocrit (volume fraction)2019-12-27 19:19:00* Test Item Value Reference Range Interpretation Comments Hematocrit (test code = 4544-3) 26.8 38.2-49.6 [facility]roeAutomated erythrocyte mean corpuscular jebqht5088-96-41 19:19:00* Test Item Value Reference Range Interpretation Comments Mean Corpuscular Volume (test code = 787-2) 90.8 81-99 [facility]roeAutomated erythrocyte mean corpuscular hemoglobin (mass per erythrocyte)2019-12-27 19:19:00* Test Item Value Reference Range Interpretation Comments Mean Corpuscular Hemoglobin (test code = 785-6) 28.5 28-32 [facility]roeAutomated erythrocyte mean corpuscular hemoglobin concentration measurement (mass/volume)2019-12-27 19:19:00* Test Item Value Reference Range Interpretation Comments Mean Corpuscular Hemoglobin Concent (test code = 786-4) 31.3 31-35 [facility] ConroeRDW XvqMm-Vrw6414-84-30 19:19:00* Test Item Value Reference Range Interpretation Comments Red Cell Distribution Width (test code = 38282-9) 19.8 11.7 -14.4 [facility]roeAutomated blood platelet count (count/volume)2019-12-27 19:19:00* Test Item Value Reference Range Interpretation Comments Platelet Count (test code = 777-3) 367 140-360 [facility] ConroeAutomated blood segmented neutrophil count as percentage of total naoyqkqrwb9543-93-26 19:19:00* Test Item Value Reference Range Interpretation Comments Neutrophils (%) (Auto) (test code = 80908-8) 87.8 38.7-80.0 [facility] ConroeAutomated blood lymphocyte count as percentage ot total vrzmsepsuo4267-56-97 19:19:00* Test Item Value Reference Range Interpretation Comments Lymphocytes (%) (Auto) (test code = 736-9) 4.1 18.0-39.1 [facility]roeAutomated blood monocyte count as percentage of total ankrlafuxc9651-95-04 19:19:00* Test Item Value Reference Range Interpretation Comments Monocytes (%) (Auto) (test code = 5905-5) 7.2 4.4-11.3 [facility] ConroeAutomated blood eosinophil count as percentage of total gtbqamxgrm1395-64-04 19:19:00* Test Item Value Reference Range Interpretation Comments Eosinophils (%) (Auto) (test code = 713-8) 0.1 0.0-6.0 [facility]roeAutomated blood basophil count as percentage of total nepabowuvz7414-05-26 19:19:00* Test Item Value Reference Range Interpretation Comments Basophils (%) (Auto) (test code = 706-2) 0.4 0.0-1.0 [facility] ConroeFluoroscopic procedure less than one hour yftyehff2656-14-99 19:19:00* Test Item Value Reference Range Interpretation Comments IM GRANULOCYTES % (test code = IM GRANULOCYTES %) 0.4 0.0- 1.0 [facility]roeAutomated blood neutrophil count 2019-12-27 19:19:00* Test Item Value Reference Range Interpretation Comments Neutrophils # (Auto) (test code = 751-8) 11.9 2.1-6.9 [facility]roeBlood lymphocytes count (number/volume) 2019-12-27 19:19:00* Test Item Value Reference Range Interpretation Comments Lymphocytes # (Auto) (test code = 89896-0) 0.6 1.0-3.2 [facility]roeBlood monocytes automated count (number/volume)2019-12-27 19:19:00* Test Item Value Reference Range Interpretation Comments Monocytes # (Auto) (test code = 742-7) 1.0 0.2-0.8 [facility]roeAutomated blood eosinophil count 2019-12-27 19:19:00* Test Item Value Reference Range Interpretation Comments Eosinophils # (Auto) (test code = 711-2) 0.0 0.0-0.4 [facility]roeAutomated blood basophil count (count/volume)2019-12-27 19:19:00* Test Item Value Reference Range Interpretation Comments Basophils # (Auto) (test code = 704-7) 0.1 0.0-0.1 [facility] ConroeFluoroscopic procedure less than one hour gcycwmpf1678-32-81 19:19:00* Test Item Value Reference Range Interpretation Comments Absolute Immature Granulocyte (auto (carroll t code = Absolute Immature Granulocyte (auto) 0.06 0-0.1 [facility]ounder[facility] or plasma sodium measurement (moles/volume)2019-12-27 19:19:00* Test Item Value Reference Range Interpretation Comments Sodium Level (test code = 2951-2) 141 136-145 [facility] Mounderum or plasma potassium measurement (moles/volume)2019-12-27 19:19:00* Test Item Value Reference Range Interpretation Comments Potassium Level (test code = 2823-3) 3.9 3.5-5.1 [facility]ounderum or plasma chloride measurement (moles/volume)2019-12-27 19:19:00* Test Item Value Reference Range Interpretation Comments Chloride Level (test code = 2075-0) 106 98-107 [facility] Mounderum or plasma carbon dioxide, total measurement (moles/volume)2019-12-27 19:19:00* Test Item Value Reference Range Interpretation Comments Carbon Dioxide Level (test code = 2028-9) 24 22-29 [facility] Mounderum or plasma anion irk5966-54-21 19:19:00* Test Item Value Reference Range Interpretation Comments Anion Gap (test code = 90808-0) 14.9 8-16 [facility]ounderum or plasma urea nitrogen measurement (mass/volume)2019-12-27 19:19:00* Test Item Value Reference Range Interpretation Comments Blood Urea Nitrogen (test code = 3094-0) 15 7- [facility]ounderum or plasma creatinine measurement (mass/volume)2019-12-27 19:19:00* Test Item Value Reference Range Interpretation Comments Creatinine (test code = 2160-0) 1.06 0.72-1.25 [facility] Mounderum or plasma urea nitrogen/creatinine mass mihzv2699-69-74 19:19:00* Test Item Value Reference Range Interpretation Comments BUN/Creatinine Ratio (test code = 3097-3) 14 - [facility]roeEstimated glomerular filtration rate (GFR) snymsfrezwqxv7033-16-33 19:19:00* Test Item Value Reference Range Interpretation Comments Estimat Glomerular Filtration Rate (test code = 675203619) > 60 >60 Ranges were taken from the National Kidney Disease Education Program and the [facility] Kidney Foundation literature.Reference ranges:60 or greater: Nuwitg55-62 ( for 3 consecutive months): Chronic kidney disease 15 or less: Kidney failureHCA Houston Healthcare ConroeGlucose wvuwwjfdxhg1482-80-74 19:19:00* Test Item Value Reference Range Interpretation Comments Glucose Level (test code = WZC9687) 110 74-118 [facility]ounderum or plasma calcium measurement (mass/volume)2019-12-27 19:19:00* Test Item Value Reference Range Interpretation Comments Calcium Level (test code = 29330-8) 8.7 8.4-10.2 [facility] ConroeFluoroscopic procedure less than one hour pxnylnyn8357-01-26 19:19:00* Test Item Value Reference Range Interpretation Comments Lactic Acid Level (test code = Lactic Acid Level) 1.4 0.5- 2.0 [facility] Mounderum or plasma total bilirubin measurement (mass/volume)2019-12-27 19:19:00* Test Item Value Reference Range Interpretation Comments Total Bilirubin (test code = 1975-2) 0.2 0.2-1.2 [facility] ConroeFluoroscopic procedure less than one hour lcbvlaiu8406-82-92 19:19:00* Test Item Value Reference Range Interpretation Comments Aspartate Amino Transf (AST/SGOT) (test code = Aspartate Amino Transf (AST/SGOT)) 13 5-34 [facility] Mounderum or plasma alanine aminotransferase measurement (enzymatic activity/volume)2019-12-27 19:19:00* Test Item Value Reference Range Interpretation Comments Alanine Aminotransferase (ALT/SGPT) (test code = 1742-6) < 6 0-55 [facility]ounderum or plasma protein measurement (mass/volume)2019-12-27 19:19:00* Test Item Value Reference Range Interpretation Comments Total Protein (test code = 2885-2) 7.0 6.5-8.1 [facility]ounder[facility] or plasma albumin measurement (mass/volume)2019-12-27 19:19:00* Test Item Value Reference Range Interpretation Comments Albumin (test code = 1751-7) 3.4 3.5-5.0 [facility]roePlasma globulin measurement (mass/volume) 2019-12-27 19:19:00* Test Item Value Reference Range Interpretation Comments Globulin (test code = 58726-6) 3.6 2.3-3.5 [facility] or plasma albumin/globulin mass uocxo9694-78-08 19:19:00* Test Item Value Reference Range Interpretation Comments Albumin/Globulin Ratio (test code = 1759-0) 0.9 0.8-2.0 [facility]ounderum or plasma alkaline phosphatase measurement (enzymatic activity/volume)2019-12-27 19:19:00* Test Item Value Reference Range Interpretation Comments Alkaline Phosphatase (test code = 6768-6) 75 40-150 [facility]ounderum or plasma creatine kinase measurement (enzymatic activity/volume)2019-12-27 19:19:00* Test Item Value Reference Range Interpretation Comments Creatine Kinase (test code = 2157-6) 14 30-200 [facility]ounderum or plasma creatine kinase MB measurement (mass/volume)2019-12-27 19:19:00* Test Item Value Reference Range Interpretation Comments Creatine Kinase MB (test code = 62840-8) 0.60 0-5.0 [facility] ConroeTroponin I measurement by highly sensitive enzyme mklahnrgsrs9759-70-62 19:19:00* Test Item Value Reference Range Interpretation Comments Troponin I (test code = 24298-4) 0.013 0-0.300 [facility] ConroeGLUBED2020-09-23 21:02:00* Test Item Value Reference Range Interpretation Comments GLUBED (test code = GLUBED) 104 mg/dL 74-106 N Performed by certified winchman/crane operator at [facility] - XR CHEST 1 [id number] 08:46:00 FAX: Sammy Mccain MD [place]: B St: ADM FAX: Tate Wheeler MD [phone] Name: INDIANA BRYAN [facility] : 1960 Age/S: 59/M [address] [facility] Unit #: [id number] Loc: V.[address] [place] [address] Phys: Tate Elena MD Acct: [id number] Dis Date: Status: ADM IN PHONE #: [phone] Exam Date: 12/20/2019 0809 FAX #: [phone] Reason: pneumonia EXAMS: CPT CODE: [id number] XR CHEST 1 V 88684 REASON FOR EXAM: pneumonia Exam Order Date: [...] joint. Upper abdomen is radiographically unremarkable. Location: [facility] at 0846 Reported and signed by: Lico Garcia MD CC: Sammy Lopez MD; Tate Elena MD Technologist: ELIE Jiménez) Trnscrd Date/Time/By: 12/20/2019 (6741) : By: [email or web address] Orig Print D/T: S: 12/20/2019 (1529) PAGE 1 Signed Report [id number] 20:42:00* Test Item Value Reference Range Interpretation Comments GLUBED (test code = GLUBED) 78 mg/dL 74-106 N Performed by certified winchman/crane operator at [facility] UAFSJN7078-11-90 16:51:00* Test Item Value Reference Range Interpretation Comments GLUBED (test code = GLUBED) 93 mg/dL 74-106 N Performed by certified winchman/crane operator at [facility] UTIOMG2392-37-52 12:12:00* Test Item Value Reference Range Interpretation Comments GLUBED (test code = GLUBED) 84 mg/dL 74-106 N Performed by certified winchman/crane operator at [facility] COMPREHENSIVE METABOLIC BYXFH3444-82-17 06:51:00* Test Item Value Reference Range Interpretation [...] reference range due to change in reagent. VKWZBSNAHP9004-08-64 06:51:00* Test Item Value Reference Range Interpretation Comments PHOSPHORUS (test code = PHOS) 4.5 mg/dL 2.5-4.9 N WOMNSQZNQ5132-72-48 06:51:00* Test Item Value Reference Range Interpretation Comments MAGNESIUM (test code = MAG) 2.0 mg/dL 1.8-2.4 N COMPREHENSIVE METABOLIC [id number] 06:40:00* Test Item Value Reference Range Interpretation [...] TOTAL (test code = ALKP) IUnit/L 45-117 [id number] 06:40:00* Test Item Value Reference Range Interpretation Comments PHOSPHORUS (test code = PHOS) mg/dL 2.5-4.9 [id number] 06:40:00* Test Item Value Reference Range Interpretation Comments MAGNESIUM (test code = MAG) mg/dL 1.8-2.4 [id number] 05:27:00* Test Item Value Reference Range Interpretation Comments GLUBED (test code = GLUBED) 98 mg/dL 74-106 N Performed by certified winchman/crane operator at [facility] [id number] 22:12:00* Test Item Value Reference Range Interpretation Comments GLUBED (test code = GLUBED) 90 mg/dL 74-106 N Performed by certified winchman/crane operator at [facility] [id number] 16:43:00* Test Item Value Reference Range Interpretation Comments GLUBED (test code = GLUBED) 68 mg/dL 74-106 L Performed by certified winchman/crane operator at [facility] - XR SWLW FUN W/C [id number] 15:07:00 FAX: Sammy Mccain MD [place]: [address]: ADM Name: [place] [facility] [facility] : [birth year] Age/S: 59/M [address] [facility] Unit #: [id number] Loc: V.2075 [place] [address] Phys: Sammy Lopez MD Acct: [id number] Dis Date: Status: ADM IN PHONE #: [phone] Exam Date: 12/18/2019 1424 FAX #: [phone] Reason: DYSPHAGIA EXAMS: CPT CODE: [id number] XR SWLW FUNC W/C V 34228 CLINICAL HISTORY: DYSPHAGIA TECHNIQUE: Fluoroscopic swallow function [...] the protective maneuver. Please see separate sp eech pathology report for complete discussion. Location: [facility] at 1505 Reported and signed by: Lico Garcia MD CC : Sammy Lopez MD Technologist: ALEJO GUSTAFSON RT(R) Trnscrd Date/Time/By: 12/18/2019 (6235) : By: [email or web address] [facility] Print D/T: S: 12/18/2019 (1642) PAGE 1 Signed Report [id number] 11:23:00* Test Item Value Reference Range Interpretation Comments GLUBED (test code = GLUBED) 93 mg/dL 74-106 N Performed by certified winchman/crane operator at [facility] CBC W/MANUAL [id number] 06:45:00* Test Item Value Reference Range Interpretation [...] IMMAT) 0 % 0-0 N COMPREHENSIVE METABOLIC [id number] 06:38:00* Test Item Value Reference Range Interpretation [...] reference range due to change in reagent. [id number] 06:38:00* Test Item Value Reference Range Interpretation Comments PHOSPHORUS (test code = PHOS) 4.4 mg/dL 2.5-4.9 N [id number] 06:38:00* Test Item Value Reference Range Interpretation Comments MAGNESIUM (test code = MAG) 1.9 mg/dL 1.8-2.4 N [id number] 06:37:00* Test Item Value Reference Range Interpretation Comments TRIGLYCERIDES (test code = TRIG) 143 mg/dL 20-150 N Are CHOL,TRIG & HDL ordered? NOCOMPREHENSIVE METABOLIC [id number] 06:27:00 * Test Item Value Reference Range [...] TOTAL (test code = ALKP) IUnit/L 45-117 [id number] 06:27:00* Test Item Value Reference Range Interpretation Comments PHOSPHORUS (test code = PHOS) mg/dL 2.5-4.9 [id number] 06:27:00* Test Item Value Reference Range Interpretation Comments MAGNESIUM (test code = MAG) mg/dL 1.8-2.4 CBC W/MANUAL [id number] 05:59:00* Test Item Value Reference Range Interpretation [...] MORPHOLOGY (test code = PLTMORPH) CBC W/MANUAL [id number] 05:59:00* Test Item Value Reference Range Interpretation [...] MORPHOLOGY (test code = PLTMORPH) CBC W/MANUAL [id number] 05:59:00* Test Item Value Reference Range Interpretation [...] MORPHOLOGY (test code = PLTMORPH) CBC W/MANUAL [id number] 05:59:00* Test Item Value Reference Range Interpretation [...] MORPHOLOGY (test code = PLTMORPH) CBC W/MANUAL [id number] 05:59:00* Test Item Value Reference Range Interpretation [...] PLTEST) PLATELET MORPHOLOGY (test code = PLTMORPH) [id number] 05:47:00* Test Item Value Reference Range Interpretation Comments GLUBED (test code = GLUBED) 116 mg/dL 74-106 H Performed by certified winchman/crane operator at [facility] [id number] 20:35:00* Test Item Value Reference Range Interpretation Comments GLUBED (test code = GLUBED) 98 mg/dL 74-106 N Performed by certified winchman/crane operator at [facility] [id number] 17:51:00* Test Item Value Reference Range Interpretation Comments GLUBED (test code = GLUBED) 97 mg/dL 74-106 N Performed by certified winchman/crane operator at [facility] [id number] 11:00:00* Test Item Value Reference Range Interpretation Comments GLUBED (test code = GLUBED) 83 mg/dL 74-106 N Performed by certified winchman/crane operator at [facility] CBC W/MANUAL [id number] 07:10:00* Test Item Value Reference Range Interpretation [...] IMMAT) 0 % 0-0 N COMPREHENSIVE METABOLIC [id number] 06:25:00* Test Item Value Reference Range Interpretation [...] reference range due to change in reagent. [id number] 06:25:00* Test Item Value Reference Range Interpretation Comments PHOSPHORUS (test code = PHOS) 4.6 mg/dL 2.5-4.9 N [id number] 06:25:00* Test Item Value Reference Range Interpretation Comments MAGNESIUM (test code = MAG) 1.7 mg/dL 1.8-2.4 L CBC W/MANUAL [id number] 05:55:00* Test Item Value Reference Range Interpretation [...] MORPHOLOGY (test code = PLTMORPH) CBC W/MANUAL [id number] 05:55:00* Test Item Value Reference Range Interpretation [...] MORPHOLOGY (test code = PLTMORPH) CBC W/MANUAL [id number] 05:55:00* Test Item Value Reference Range Interpretation [...] MORPHOLOGY (test code = PLTMORPH) CBC W/MANUAL [id number] 05:55:00* Test Item Value Reference Range Interpretation [...] MORPHOLOGY (test code = PLTMORPH) CBC W/MANUAL [id number] 05:55:00* Test Item Value Reference Range Interpretation [...] PLTEST) PLATELET MORPHOLOGY (test code = PLTMORPH) [id number] 17:57:00* Test Item Value Reference Range Interpretation Comments GLUBED (test code = GLUBED) 110 mg/dL 74-106 H Performed by certified winchman/crane operator at [facility] [id number] 17:45:00* Test Item Value Reference Range Interpretation Comments GLUBED (test code = GLUBED) 110 mg/dL 74-106 H Performed by certified winchman/crane operator at [facility] [id number] 12:21:00* Test Item Value Reference Range Interpretation Comments GLUBED (test code = GLUBED) 104 mg/dL 74-106 N Performed by certified winchman/crane operator at [facility] COMPREHENSIVE METABOLIC [id number] 06:19:00* Test Item Value Reference Range Interpretation [...] in reagent. Are CHOL,TRIG & HDL ordered? [id number] 06:19:00* Test Item Value Reference Range Interpretation Comments PHOSPHORUS (test code = PHOS) 3.7 mg/dL 2.5-4.9 N Are CHOL,TRIG & HDL ordered? [id number] 06:19:00* Test Item Value Reference Range Interpretation Comments TRIGLYCERIDES (test code = TRIG) 150 mg/dL 20-150 N Are CHOL,TRIG & HDL ordered? [id number] 06:19:00* Test Item Value Reference Range Interpretation Comments MAGNESIUM (test code = MAG) 2.0 mg/dL 1.8-2.4 N Are CHOL,TRIG & HDL ordered? NOCOMPREHENSIVE METABOLIC [id number] 06:11:00 * Test Item Value Reference Range [...] IUnit/L 45-117 Are CHOL,TRIG & HDL ordered? [id number] 06:11:00* Test Item Value Reference Range Interpretation Comments PHOSPHORUS (test code = PHOS) mg/dL 2.5-4.9 Are CHOL,TRIG & HDL ordered? [id number] 06:11:00* Test Item Value Reference Range Interpretation Comments TRIGLYCERIDES (test code = TRIG) mg/dL 20-150 Are CHOL,TRIG & HDL ordered? [id number] 06:11:00* Test Item Value Reference Range Interpretation Comments MAGNESIUM (test code = MAG) mg/dL 1.8-2.4 Are CHOL,TRIG & HDL ordered? [id number] 05:54:00* Test Item Value Reference Range Interpretation Comments GLUBED (test code = GLUBED) 79 mg/dL 74-106 N Performed by certified winchman/crane operator at [facility] [id number] 00:41:00* Test Item Value Reference Range Interpretation Comments GLUBED (test code = GLUBED) 86 mg/dL 74-106 N Performed by certified winchman/crane operator at [facility] [id number] 18:15:00* Test Item Value Reference Range Interpretation Comments GLUBED (test code = GLUBED) 67 mg/dL 74-106 L Performed by certified winchman/crane operator at [facility] [id number] 12:57:00* Test Item Value Reference Range Interpretation Comments GLUBED (test code = GLUBED) 74 mg/dL 74-106 N Performed by certified winchman/crane operator at [facility] CBC W/MANUAL [id number] 06:43:00* Test Item Value Reference Range Interpretation [...] code = IMMAT) 0 % 0-0 N [id number] 05:56:00* Test Item Value Reference Range Interpretation Comments GLUBED (test code = GLUBED) 80 mg/dL 74-106 N Performed by certified winchman/crane operator at [facility] [id number] 05:49:00* Test Item Value Reference Range Interpretation Comments PHOSPHORUS (test code = PHOS) 3.5 mg/dL 2.5-4.9 N CBC W/MANUAL [id number] 05:08:00* Test Item Value Reference Range Interpretation [...] MORPHOLOGY (test code = PLTMORPH) CBC W/MANUAL [id number] 05:08:00* Test Item Value Reference Range Interpretation [...] MORPHOLOGY (test code = PLTMORPH) CBC W/MANUAL [id number] 05:08:00* Test Item Value Reference Range Interpretation [...] MORPHOLOGY (test code = PLTMORPH) CBC W/MANUAL [id number] 05:08:00* Test Item Value Reference Range Interpretation [...] MORPHOLOGY (test code = PLTMORPH) CBC W/MANUAL [id number] 05:08:00* Test Item Value Reference Range Interpretation [...] PLTEST) PLATELET MORPHOLOGY (test code = PLTMORPH) [id number] 04:50:00* Test Item Value Reference Range Interpretation Comments GLUBED (test code = GLUBED) 78 mg/dL 74-106 N Performed by certified winchman/crane operator at [facility] [id number] 20:31:00* Test Item Value Reference Range Interpretation Comments GLUBED (test code = GLUBED) 78 mg/dL 74-106 N Performed by certified winchman/crane operator at [facility] CBC W/MANUAL [id number] 18:25:00* Test Item Value Reference Range Interpretation [...] = IMMAT) 0 % 0-0 N PATHOLOGISTS [id number] 18:25:00* Test Item Value Reference Range Interpretation Comments PATHOLOGISTS FINDINGS (test code = PATH) PATH NOTES LEUKOCYTOSIS WITH LEFT SHIFT AND TOXIC GRANULATION,MODERATE MARKED NORMOCYTIC ANEMIANO CIRCULATING BLASTS.Reviewed by Pathologist, ERNESTINA RHOADES M.D.12/14/19 CBC W/MANUAL [id number] 10:00:00* Test Item Value Reference Range Interpretation [...] = IMMAT) 0 % 0-0 N PATHOLOGISTS [id number] 10:00:00* Test Item Value Reference Range Interpretation Comments PATHOLOGISTS FINDINGS (test code = PATH) PATH NOTES - XR CHEST 1 [id number] 08:45:00 FAX: Sammy Mccain MD [place]: St: ADM FAX: Tate Wheeler MD [phone] Name: [place] BRY[facility] : 1960 Age/S: 59/M [address] [facility] Unit #: [id number] Loc: V.2074 [place] [address] Phys: Tate Elena MD Acct: [id number] Dis Date: Status: ADM IN PHONE #: [phone] Exam Date: 12/14/2019 0753 FAX #: [phone] Reason: pneumonia EXAMS: CPT CODE: [id number] XR CHEST 1 V 04771 HISTORY: Pneumonia. COMPARISON: December 02, 2019. Location: [facility]. NG tube is shallow and could be advanced 5 cm for better positioning. Mild crowding of bronchovascular markings. No acute infiltrates, effusion or congestion. Cardiomegaly. IMPRESSION: No acute infiltrates, effusion or congestion with dependent changes. at 0845 Reported and signed by: Saw Pierson M.D. CC: Sammy Lopez MD; Tate Elena MD Technologist: Magdalena Parikh, RT(R); ALEJO WINN RT(R) [facility] Date/Time/By: 12/14/2019 (0845) : By: [email or web address] Orig Print D /T: S: 12/14/2019 (0848) PAGE 1 S igned Report CBC W/MANUAL [id number] 08:39:00 * Test Item Value Reference Range [...] IMMAT) 0 % 0-0 N CBC W/MANUAL [id number] 07:56:00* Test Item Value Reference Range Interpretation [...] MORPHOLOGY (test code = PLTMORPH) CBC W/MANUAL [id number] 07:56:00* Test Item Value Reference Range Interpretation [...] MORPHOLOGY (test code = PLTMORPH) CBC W/MANUAL [id number] 07:56:00* Test Item Value Reference Range Interpretation [...] MORPHOLOGY (test code = PLTMORPH) CBC W/MANUAL [id number] 07:56:00* Test Item Value Reference Range Interpretation [...] MORPHOLOGY (test code = PLTMORPH) CBC W/MANUAL [id number] 07:56:00* Test Item Value Reference Range Interpretation [...] MORPHOLOGY (test code = PLTMORPH) COMPREHENSIVE METABOLIC [id number] 07:40:00* Test Item Value Reference Range Interpretation [...] reference range due to change in reagent. [id number] 07:40:00* Test Item Value Reference Range Interpretation Comments PHOSPHORUS (test code = PHOS) 1.7 mg/dL 2.5-4.9 L [id number] 07:40:00* Test Item Value Reference Range Interpretation Comments MAGNESIUM (test code = MAG) 1.7 mg/dL 1.8-2.4 L CALCIUM [id number] 07:40:00* Test Item Value Reference Range Interpretation Comments CALCIUM IONIZED (test code = RADHA) 1.25 mmol/L 1.12-1.32 N COMPREHENSIVE METABOLIC [id number] 07:09:00* Test Item Value Reference Range Interpretation [...] TOTAL (test code = ALKP) IUnit/L 45-117 [id number] 07:09:00* Test Item Value Reference Range Interpretation Comments PHOSPHORUS (test code = PHOS) mg/dL 2.5-4.9 [id number] 07:09:00* Test Item Value Reference Range Interpretation Comments MAGNESIUM (test code = MAG) mg/dL 1.8-2.4 CALCIUM [id number] 07:09:00* Test Item Value Reference Range Interpretation Comments CALCIUM IONIZED (test code = RADHA) 1.25 mmol/L 1.12-1.32 N COMPREHENSIVE METABOLIC [id number] 07:03:00* Test Item Value Reference Range Interpretation [...] TOTAL (test code = ALKP) IUnit/L 45-117 [id number] 07:03:00* Test Item Value Reference Range Interpretation Comments PHOSPHORUS (test code = PHOS) mg/dL 2.5-4.9 [id number] 07:03:00* Test Item Value Reference Range Interpretation Comments MAGNESIUM (test code = MAG) mg/dL 1.8-2.4 CALCIUM [id number] 07:03:00* Test Item Value Reference Range Interpretation Comments CALCIUM IONIZED (test code = RADHA) mmol/L 1.12-1.32 CBC W/MANUAL [id number] 09:59:00* Test Item Value Reference Range Interpretation [...] IMMAT) 0 % 0-0 N COMPREHENSIVE METABOLIC [id number] 08:44:00* Test Item Value Reference Range Interpretation [...] reference range due to change in reagent. [id number] 08:44:00* Test Item Value Reference Range Interpretation Comments PHOSPHORUS (test code = PHOS) 2.3 mg/dL 2.5-4.9 L [id number] 08:44:00* Test Item Value Reference Range Interpretation Comments MAGNESIUM (test code = MAG) 1.9 mg/dL 1.8-2.4 N CALCIUM [id number] 08:44:00* Test Item Value Reference Range Interpretation Comments CALCIUM IONIZED (test code = RADHA) 1.28 mmol/L 1.12-1.32 N COMPREHENSIVE METABOLIC [id number] 07:55:00* Test Item Value Reference Range Interpretation [...] reference range due to change in reagent. [id number] 07:55:00* Test Item Value Reference Range Interpretation Comments PHOSPHORUS (test code = PHOS) 2.3 mg/dL 2.5-4.9 L [id number] 07:55:00* Test Item Value Reference Range Interpretation Comments MAGNESIUM (test code = MAG) 1.9 mg/dL 1.8-2.4 N CALCIUM [id number] 07:55:00* Test Item Value Reference Range Interpretation Comments CALCIUM IONIZED (test code = RADHA) mmol/L 1.12-1.32 CBC W/MANUAL [id number] 07:46:00* Test Item Value Reference Range Interpretation [...] MORPHOLOGY (test code = PLTMORPH) CBC W/MANUAL [id number] 07:46:00* Test Item Value Reference Range Interpretation [...] MORPHOLOGY (test code = PLTMORPH) CBC W/MANUAL [id number] 07:46:00* Test Item Value Reference Range Interpretation [...] MORPHOLOGY (test code = PLTMORPH) COMPREHENSIVE METABOLIC [id number] 07:46:00* Test Item Value Reference Range Interpretation [...] TOTAL (test code = ALKP) IUnit/L 45-117 [id number] 07:46:00* Test Item Value Reference Range Interpretation Comments PHOSPHORUS (test code = PHOS) mg/dL 2.5-4.9 [id number] 07:46:00* Test Item Value Reference Range Interpretation Comments MAGNESIUM (test code = MAG) mg/dL 1.8-2.4 CALCIUM [id number] 07:46:00* Test Item Value Reference Range Interpretation Comments CALCIUM IONIZED (test code = RADHA) mmol/L 1.12-1.32 CBC W/MANUAL [id number] 07:45:00* Test Item Value Reference Range Interpretation [...] MORPHOLOGY (test code = PLTMORPH) CBC W/MANUAL [id number] 07:45:00* Test Item Value Reference Range Interpretation [...] PLTEST) PLATELET MORPHOLOGY (test code = PLTMORPH) [id number] 06:43:00* Test Item Value Reference Range Interpretation Comments GLUBED (test code = GLUBED) 77 mg/dL 74-106 N Performed by certified winchman/crane operator at [facility] - XR CHEST 1 [id number] 11:07:00 FAX: Sammy Mccain MD [place]: [address]: ADM Name: [place] [facility] [facility] : [birth year] Age/S: 59/M [address] Unit #: [id number] Loc: V.2074 [place] [address] Phys: Sammy Lopez MD Acct: [id number] Dis Date: Status: ADM IN PHONE #: [phone] Exam Date: 12/12/2019 1049 FAX #: [phone] Reason: NG TUBE PLACEMENT EXAMS: CPT CODE: [id number] XR CHEST 1 V 73907 HISTORY: NG tube placement. COMPARISON: December 09, 2019. Location: [facility]. NG tube extends below the diaphragm in good position. Dependent changes . No acute infiltrates, effusion or congestion. Cardiomegaly. IM PRESSION: NG tube extends below the diaphragm with the tip in the stomach in good position. at 1107 Reported and signed b y: Saw Pierson M.D. CC: Sammy Lopez MD Technologist: Brinda Retana(Sedrick) Trnscrd Date/Time/By: 12/12/2019 (1107) : By: [email or web address] Orig Print D/T: S: 12/12/2019 (7564) PAGE 1 Signed Report CBC W/MANUAL DIFF [...] IMMAT) 0 % 0-0 N COMPREHENSIVE METABOLIC [id number] 06:38:00* Test Item Value Reference Range Interpretation [...] reference range due to change in reagent. [id number] 06:38:00* Test Item Value Reference Range Interpretation Comments PHOSPHORUS (test code = PHOS) 4.1 mg/dL 2.5-4.9 N [id number] 06:38:00* Test Item Value Reference Range Interpretation Comments MAGNESIUM (test code = MAG) 2.0 mg/dL 1.8-2.4 N CALCIUM [id number] 06:38:00* Test Item Value Reference Range Interpretation Comments CALCIUM IONIZED (test code = RADHA) 1.25 mmol/L 1.12-1.32 N COMPREHENSIVE METABOLIC [id number] 06:33:00* Test Item Value Reference Range Interpretation [...] TOTAL (test code = ALKP) IUnit/L 45-117 [id number] 06:33:00* Test Item Value Reference Range Interpretation Comments PHOSPHORUS (test code = PHOS) mg/dL 2.5-4.9 [id number] 06:33:00* Test Item Value Reference Range Interpretation Comments MAGNESIUM (test code = MAG) mg/dL 1.8-2.4 CALCIUM [id number] 06:33:00* Test Item Value Reference Range Interpretation Comments CALCIUM IONIZED (test code = RADHA) 1.25 mmol/L 1.12-1.32 N COMPREHENSIVE METABOLIC [id number] 06:29:00* Test Item Value Reference Range Interpretation [...] TOTAL (test code = ALKP) IUnit/L 45-117 [id number] 06:29:00* Test Item Value Reference Range Interpretation Comments PHOSPHORUS (test code = PHOS) mg/dL 2.5-4.9 [id number] 06:29:00* Test Item Value Reference Range Interpretation Comments MAGNESIUM (test code = MAG) mg/dL 1.8-2.4 CALCIUM [id number] 06:29:00* Test Item Value Reference Range Interpretation Comments CALCIUM IONIZED (test code = RADHA) mmol/L 1.12-1.32 CBC W/MANUAL [id number] 06:13:00* Test Item Value Reference Range Interpretation [...] MORPHOLOGY (test code = PLTMORPH) CBC W/MANUAL [id number] 06:13:00* Test Item Value Reference Range Interpretation [...] MORPHOLOGY (test code = PLTMORPH) CBC W/MANUAL [id number] 06:13:00* Test Item Value Reference Range Interpretation [...] MORPHOLOGY (test code = PLTMORPH) CBC W/MANUAL [id number] 06:13:00* Test Item Value Reference Range Interpretation [...] MORPHOLOGY (test code = PLTMORPH) CBC W/MANUAL [id number] 06:13:00* Test Item Value Reference Range Interpretation [...] (test code = PLTMORPH) - XR SWLW [facility] W/C [id number] 14:05:00 FAX: Sammy Mccain MD [place]: [address]: ADM Name: [place] LATH[place] [facility] : [birth year] Age/S: 59/M [address] [facility] Unit #: [id number] Loc: V.5 [place] [address] Phys: Sammy Lopez MD Acct: [id number] Dis Date: Status: ADM IN PHONE #: [phone] Exam Date: 12/11/2019 1340 FAX #: [phone] Reason: COUGHING WHILE DRINKING EXAMS: CPT CODE: [id number] XR SWLW FUNC W/C V 68861 CLINICAL HISTORY: COUGHING WHILE D RINKING TECHNIQUE: [...] pathology report for complete dis cussion. Location: [facility] at 1405 Reported and signed by: Lico Garcia MD CC: Sammy Lopez MD Technologist: RT KENYA(Sedrick) Trnscrd Date/Time/By: 12/11/2019 (1405) : By: [email or web address] Or ig Print D/T: S: 12/11/2019 (4224) PAGE 1 Signed Report FE W/TOTAL IRON BINDING CAP.2019-12-11 09:02:00* Test Item Value Reference Range Interpretation Comments SERUM IRON (test code = IRON) 58 ug/dL 50-175 N TOTAL IRON BINDING CAPACITY (test code = TIBC) 116 mcg/dL 250-450 L IRON SATURATION (test code = FESAT) 50.00 % 13-45 H VITAMIN [id number] 09:02:00* Test Item Value Reference Range Interpretation Comments VITAMIN B12 (test code = VITB12) 1884 pg/mL 193-986 H FOLIC [id number] 09:02:00* Test Item Value Reference Range Interpretation Comments FOLIC ACID (test code = FOL) 5.9 ng/mL 3.10-17.50 N - XR ABDOMEN AP 1 [id number] 08:43:00 FAX: Farhad Bhakta MD [phone] [place]: [facility]: [facility] FAX: Sammy Mccain MD Name: [place] [facility] : 1960 Age/S: 59/M [address] [facility] Unit #: [id number] Loc: V.2074 [place] [address] Phys: Farhad Peña MD Acct: [id number] Dis Date: Status: ADM IN PHONE #: [phone] Exam Date: 12/11/2019905 FAX #: [phone] Reason: ILEUS EXAMS: CPT CODE: [id number] XR ABDOMEN AP 1 V 89738 HISTORY: Ileus. COMPARISON: Previous day. Location: [facility]. Moderate diffuse distention of the entire sma [...] Peña MD; Sammy Lopez MD Technologist: RT Tino(R) [facility] Date/Time/By: 12/11/2019 (0843) : By: [email or web address] Orig Print D/T : S: 12/11/2019 (09) PAGE 1 Sig veronica Report COMPREHENSIVE METABOLIC [id number] 07:21:00* Test Item Value Reference Range Interpretation [...] reference range due to change in reagent. [id number] 07:21:00* Test Item Value Reference Range Interpretation Comments PHOSPHORUS (test code = PHOS) 1.8 mg/dL 2.5-4.9 L [id number] 07:21:00* Test Item Value Reference Range Interpretation Comments MAGNESIUM (test code = MAG) 1.9 mg/dL 1.8-2.4 N CALCIUM [id number] 07:21:00* Test Item Value Reference Range Interpretation Comments CALCIUM IONIZED (test code = RADHA) 1.25 mmol/L 1.12-1.32 N COMPREHENSIVE METABOLIC [id number] 06:50:00* Test Item Value Reference Range Interpretation [...] reference range due to change in reagent. [id number] 06:50:00* Test Item Value Reference Range Interpretation Comments PHOSPHORUS (test code = PHOS) 1.8 mg/dL 2.5-4.9 L [id number] 06:50:00* Test Item Value Reference Range Interpretation Comments MAGNESIUM (test code = MAG) 1.9 mg/dL 1.8-2.4 N CALCIUM [id number] 06:50:00* Test Item Value Reference Range Interpretation Comments CALCIUM IONIZED (test code = RADHA) mmol/L 1.12-1.32 COMPREHENSIVE METABOLIC [id number] 06:43:00* Test Item Value Reference Range Interpretation [...] TOTAL (test code = ALKP) IUnit/L 45-117 [id number] 06:43:00* Test Item Value Reference Range Interpretation Comments PHOSPHORUS (test code = PHOS) mg/dL 2.5-4.9 [id number] 06:43:00* Test Item Value Reference Range Interpretation Comments MAGNESIUM (test code = MAG) mg/dL 1.8-2.4 CALCIUM [id number] 06:43:00* Test Item Value Reference Range Interpretation Comments CALCIUM IONIZED (test code = RADHA) mmol/L 1.12-1.32 RETICULOCYTE [id number] 06:29:00* Test Item Value Reference Range Interpretation [...] is indicative of iron deficiency. CBC W/MANUAL [id number] 06:19:00* Test Item Value Reference Range Interpretation Comments WHITE BLOOD CELL (test code = WBC) 14.6 K/mm3 4.5-12.5 H RED BLOOD CELL (test code = RBC) 2.39 mill/mm3 4.0-5.8 L HEMOGLOBIN (test code = HGB) 6.6 gram/dL 13.0-17.5 L HEMATOCRIT (test code = HCT) 20.7 % 42.0-52.0 LL Results called to [id number] by SEVEN 12/11/19 0604Critical results verified and [...] IMMAT) 0 % 0-0 N CBC W/MANUAL [id number] 06:05:00* Test Item Value Reference Range Interpretation Comments WHITE BLOOD CELL (test code = WBC) 14.6 K/mm3 4.5-12.5 H RED BLOOD CELL (test code = RBC) 2.39 mill/mm3 4.0-5.8 L HEMOGLOBIN (test code = HGB) 6.6 gram/dL 13.0-17.5 L HEMATOCRIT (test code = HCT) 20.7 % 42.0-52.0 Results called to [id number] by SEVEN 12/11/19 0604Critical results verified and [...] MORPHOLOGY (test code = PLTMORPH) CBC W/MANUAL [id number] 06:05:00* Test Item Value Reference Range Interpretation Comments WHITE BLOOD CELL (test code = WBC) 14.6 K/mm3 4.5-12.5 H RED BLOOD CELL (test code = RBC) 2.39 mill/mm3 4.0-5.8 L HEMOGLOBIN (test code = HGB) 6.6 gram/dL 13.0-17.5 L HEMATOCRIT (test code = HCT) 20.7 % 42.0-52.0 LL Results called to [id number] by SEVEN 12/11/19 0604Critical results verified and [...] MORPHOLOGY (test code = PLTMORPH) CBC W/MANUAL [id number] 06:05:00* Test Item Value Reference Range Interpretation Comments WHITE BLOOD CELL (test code = WBC) 14.6 K/mm3 4.5-12.5 H RED BLOOD CELL (test code = RBC) 2.39 mill/mm3 4.0-5.8 L HEMOGLOBIN (test code = HGB) 6.6 gram/dL 13.0-17.5 L HEMATOCRIT (test code = HCT) 20.7 % 42.0-52.0 LL Results called to [id number] by SEVEN 12/11/19 0604Critical results verified and [...] MORPHOLOGY (test code = PLTMORPH) CBC W/MANUAL [id number] 06:05:00* Test Item Value Reference Range Interpretation Comments WHITE BLOOD CELL (test code = WBC) 14.6 K/mm3 4.5-12.5 H RED BLOOD CELL (test code = RBC) 2.39 mill/mm3 4.0-5.8 L HEMOGLOBIN (test code = HGB) 6.6 gram/dL 13.0-17.5 L HEMATOCRIT (test code = HCT) 20.7 % 42.0-52.0 LL Results called to [id number] by SEVEN 12/11/19 0604Critical results verified and [...] MORPHOLOGY (test code = PLTMORPH) CBC W/MANUAL [id number] 06:05:00* Test Item Value Reference Range Interpretation Comments WHITE BLOOD CELL (test code = WBC) 14.6 K/mm3 4.5-12.5 H RED BLOOD CELL (test code = RBC) 2.39 mill/mm3 4.0-5.8 L HEMOGLOBIN (test code = HGB) 6.6 gram/dL 13.0-17.5 L HEMATOCRIT (test code = HCT) 20.7 % 42.0-52.0 Results called to [id number] by SEVEN 12/11/19 0604Critical results verified and [...] = PLTMORPH) - XR ABDOMEN AP 1 [id number] 07:50:00 FAX: Farhad Bhakta MD [phone] [place]: St: [facility] FAX: Sammy Mccain MD Name: [place] BRY[facility] : 1960 Age/S: 59/M [address] [facility] Unit #: [id number] Loc: V.0 [place] [address] Phys: Farhad Peña MD Acct: [id number] Dis Date: Status: ADM IN PHONE #: [phone] Exam Date: 12/10/2019 033 FAX #: [phone] Reason: ILEUS EXAMS: CPT CODE: [id number] XR ABDOMEN AP 1 V 71730 HISTORY: ILEUS TECHNIQUE: AP abdomen x-ray COMPARISON: [...] st: Steve Pink RT(R); ARNOL TEE RT(R) [facility] Date/Time/By: 12/10/2019 (0750) : By: [email or web address] Orig Print D/T: S: 12/10/2019 (0757 ) PAGE 1 Signed Report B-TYPE NATRIURETIC [id number] 05:17:00* Test Item Value Reference Range Interpretation Comments B-TYPE NATRIURETIC PEPTIDE (test code = BNP) 116.11 pgram/mL 0-100 H PROTHROMBIN [id number] 03:48:00* Test Item Value Reference Range Interpretation [...] (2.5-3.5) IS PATIENT ON ANTICOAGULANTS? NTHROMBOPLASTIN TIME [id number] 03:48:00* Test Item Value Reference Range Interpretation Comments THROMBOPLASTIN TIME PARTIAL (test code = PTT) 25.3 seconds 23.0-37. 0 N IS PATIENT ON ANTICOAGULANTS? [id number] 03:48:00* Test Item Value Reference Range Interpretation Comments FIBRINOGEN (test code = FIB) 229 mg/dL 200-400 N IS PATIENT ON ANTICOAGULANTS? NCOMPREHENSIVE METABOLIC [id number] 03:41:00 * Test Item Value Reference Range [...] reference range due to change in reagent. [id number] 03:41:00* Test Item Value Reference Range Interpretation Comments PHOSPHORUS (test code = PHOS) 1.9 mg/dL 2.5-4.9 L [id number] 03:41:00* Test Item Value Reference Range Interpretation Comments MAGNESIUM (test code = MAG) 2.1 mg/dL 1.8-2.4 N CALCIUM [id number] 03:41:00* Test Item Value Reference Range Interpretation Comments CALCIUM IONIZED (test code = RADHA) 1.26 mmol/L 1.12-1.32 N CBC W/AUTO [id number] 03:33:00* Test Item Value Reference Range Interpretation [...] DIFF REQUIRED (test code = MDIFF) YES [id number] 03:28:00* Test Item Value Reference Range Interpretation Comments AMMONIA (test code = AMM) 22 umol/L 11-32 N COMPREHENSIVE METABOLIC [id number] 03:21:00* Test Item Value Reference Range Interpretation [...] TOTAL (test code = ALKP) IUnit/L 45-117 [id number] 03:21:00* Test Item Value Reference Range Interpretation Comments PHOSPHORUS (test code = PHOS) mg/dL 2.5-4.9 [id number] 03:21:00* Test Item Value Reference Range Interpretation Comments MAGNESIUM (test code = MAG) mg/dL 1.8-2.4 CALCIUM [id number] 03:21:00* Test Item Value Reference Range Interpretation Comments CALCIUM IONIZED (test code = RADHA) 1.26 mmol/L 1.12-1.32 N CBC W/MANUAL [id number] 22:25:00* Test Item Value Reference Range Interpretation [...] IMMAT) 0 % 0-0 N COMPREHENSIVE METABOLIC [id number] 22:19:00* Test Item Value Reference Range Interpretation [...] reference range due to change in reagent. [id number] 22:19:00* Test Item Value Reference Range Interpretation Comments PHOSPHORUS (test code = PHOS) 2.2 mg/dL 2.5-4.9 L [id number] 22:19:00* Test Item Value Reference Range Interpretation Comments MAGNESIUM (test code = MAG) 2.1 mg/dL 1.8-2.4 N CALCIUM [id number] 22:19:00* Test Item Value Reference Range Interpretation Comments CALCIUM IONIZED (test code = RADHA) 1.26 mmol/L 1.12-1.32 N LACTIC [id number] 22:19:00* Test Item Value Reference Range Interpretation Comments LACTIC ACID (test code = LACT) 1.1 mmol/L 0.4-1.9 N COMPREHENSIVE METABOLIC [id number] 22:01:00* Test Item Value Reference Range Interpretation [...] TOTAL (test code = ALKP) IUnit/L 45-117 [id number] 22:01:00* Test Item Value Reference Range Interpretation Comments PHOSPHORUS (test code = PHOS) mg/dL 2.5-4.9 [id number] 22:01:00* Test Item Value Reference Range Interpretation Comments MAGNESIUM (test code = MAG) mg/dL 1.8-2.4 CALCIUM [id number] 22:01:00* Test Item Value Reference Range Interpretation Comments CALCIUM IONIZED (test code = RADHA) mmol/L 1.12-1.32 COMPREHENSIVE METABOLIC [id number] 22:01:00* Test Item Value Reference Range Interpretation [...] TOTAL (test code = ALKP) IUnit/L 45-117 [id number] 22:01:00* Test Item Value Reference Range Interpretation Comments PHOSPHORUS (test code = PHOS) mg/dL 2.5-4.9 [id number] 22:01:00* Test Item Value Reference Range Interpretation Comments MAGNESIUM (test code = MAG) mg/dL 1.8-2.4 CALCIUM [id number] 22:01:00* Test Item Value Reference Range Interpretation Comments CALCIUM IONIZED (test code = RADHA) 1.26 mmol/L 1.12-1.32 N CBC W/MANUAL [id number] 21:50:00* Test Item Value Reference Range Interpretation [...] MORPHOLOGY (test code = PLTMORPH) CBC W/MANUAL [id number] 21:50:00* Test Item Value Reference Range Interpretation [...] MORPHOLOGY (test code = PLTMORPH) CBC W/MANUAL [id number] 21:50:00* Test Item Value Reference Range Interpretation [...] MORPHOLOGY (test code = PLTMORPH) CBC W/MANUAL [id number] 21:50:00* Test Item Value Reference Range Interpretation [...] MORPHOLOGY (test code = PLTMORPH) CBC W/MANUAL [id number] 21:50:00* Test Item Value Reference Range Interpretation [...] PLTEST) PLATELET MORPHOLOGY (test code = PLTMORPH) [id number] 20:04:00* Test Item Value Reference Range Interpretation Comments GLUBED (test code = GLUBED) 77 mg/dL 74-106 N Performed by certified winchman/crane operator at [facility] - CT ABD PELVIS W/O [id number] 18:18:00 [facility] 1960 Age/S: 59 / M [address] Unit #: [id number] Loc: [place] [address] Phys: Cheryle Vila BEHAVIORAL PEDIATRICIAN Acct: [id number] Dis Date: Status: ADM IN PHONE #: [phone] Exam Date: 12/09/2019 1720 FAX #: [phone] Reason: r/o colitis vs mesenteric ischemia EXAMS: CPT CODE: [id number] CT ABD PELVIS W/O CONT 69939 HISTORY: r/o colitis vs mesenteric ischemia TECHNIQUE: [...] 1 Signed Report (CONTINUED) Name[facility] [facility] 1960 Age/S: 59 / M [address] Unit #: [id number] Loc: [place] [address] Phys: Cheryle Vila NP Acct: [id number] Dis Date: tus: ADM IN PHONE #: [phone] Exam Date : 12/09/2019 1720 FAX #: [phone] Reason: r/o coli tis vs mesenteric ischemia EXAMS: CPT CODE: [id number] CT ABD PELVIS W/O CONT 76055 <Continued> LOCATION: LP at 1818 Reported and signed by: Cassia Ruiz D.O. CC: Sammy Lopez MD; Cheryle Vila NP Technologist:Diana Song RT(R),CT; CTDI: DLP: Trnscb Date/Time: 12/09/2019 (1817) [email or web address] Orig Print D/T: S: 12/09/2019 (1820) PAGE 2 Signed Report ARTERIAL BLOOD [id number] 16:12:00* Test Item Value Reference Range Interpretation [...] vol 18.0-22.0 L - XR CHEST 1 [id number] 14:04:00 FAX: Sammy Mccain MD [place]: St: ADM Name: [place] LATH[place] [facility] : [birth year] Age/S: 59/M [address] [facility] Unit #: [id number] Loc: V.[address] [place] [address] Phys: Sammy Lopez MD Acct: [id number] Dis Date: Status: ADM IN PHONE #: [phone] Exam Date: 12/09/2019 5255 FAX #: [phone] Reason: POST NG TUBE INCERTION EXAMS: CPT CODE: [id number] XR CHEST 1 V 77239 Examination: One view chest x-ray Location code: [...] signed by: Rick Calix M.D. CC: Sammy Lpoez MD Technologist: DAYANA CERRATO RT (R); NURYS JAEGER RT(R) Tr muscogeerd Date/Time/By: 12/09/2019 (6163) : By: [email or web address] Orig Print D/T: S: 12/09/2019 (8309) PAGE 1 Arabella d Report COMPREHENSIVE METABOLIC [id number] 11:45:00* Test Item Value Reference Range Interpretation [...] reference range due to change in reagent. [id number] 11:45:00* Test Item Value Reference Range Interpretation Comments AMYLASE (test code = DERIC) 10 Unit/L 25-115 L [id number] 11:45:00* Test Item Value Reference Range Interpretation Comments LIPASE (test code = LIP) 28 U/L 73.0-393.0 L COMPREHENSIVE METABOLIC [id number] 11:33:00* Test Item Value Reference Range Interpretation [...] reference range due to change in reagent. [id number] 11:33:00* Test Item Value Reference Range Interpretation Comments AMYLASE (test code = DERIC) 10 Unit/L 25-115 L [id number] 11:33:00* Test Item Value Reference Range Interpretation Comments LIPASE (test code = LIP) 28 U/L 73.0-393.0 L COMPREHENSIVE METABOLIC [id number] 11:31:00* Test Item Value Reference Range Interpretation [...] TOTAL (test code = ALKP) IUnit/L 45-117 [id number] 11:31:00* Test Item Value Reference Range Interpretation Comments AMYLASE (test code = DERIC) Unit/L 25-115 [id number] 11:31:00* Test Item Value Reference Range Interpretation Comments LIPASE (test code = LIP) U/L 73.0-393.0 CBC W/MANUAL [id number] 11:21:00* Test Item Value Reference Range Interpretation [...] IMMAT) 0 % 0-0 N CBC W/MANUAL [id number] 10:46:00* Test Item Value Reference Range Interpretation [...] MORPHOLOGY (test code = PLTMORPH) CBC W/MANUAL [id number] 10:46:00* Test Item Value Reference Range Interpretation [...] MORPHOLOGY (test code = PLTMORPH) CBC W/MANUAL [id number] 10:46:00* Test Item Value Reference Range Interpretation [...] MORPHOLOGY (test code = PLTMORPH) CBC W/MANUAL [id number] 10:45:00* Test Item Value Reference Range Interpretation [...] MORPHOLOGY (test code = PLTMORPH) CBC W/MANUAL [id number] 10:45:00* Test Item Value Reference Range Interpretation [...] = PLTMORPH) - XR ABDOMEN AP 1 [id number] 09:48:00 FAX: Sammy Mccain MD [place]: B St: ADM Name: [place] LATH[facility] : [birth year] Age/S: 59/M [address] Unit #: [id number] Loc: V.[address] [place] [address] Phys: Sammy Lopez MD Acct: [id number] Dis Date: Status: ADM IN PHONE #: [phone] Exam Date: 12/09/2019914 FAX #: [phone] Reason: EMESIS EXAMS: CPT CODE: [id number] XR ABDOMEN AP 1 V 11513 REASON FOR EXAM: EMESIS EXAM ORDER DATE: 12/09/2019 7:17 AM Ordering: Sammy Lopez MD Attending:Sammy Lopez MD Location:[facility] EDURE: - XR ABDOMEN AP 1 V [...] NURYS JAEGER RT (R) Trnscrd Date/Time/By: 12/09/2019 (0948) : Mary Ellen y: MartinVTL Orig Print D/T: S: 12/09/2019 (3297) PAGE 1 Signed Report CBC W/MANUAL [id number] 07:16:00* Test Item Value Reference Range Interpretation [...] % 0-0 N - XR CHEST 1 [id number] 06:32:00 FAX: Sammy Mccain MD [place]: St: ADM Name: [place] LATHAM [facility] : [birth year] Age/S: 59/M [address] [facility] Unit #: [id number] Loc: V.[address] [place] [address] Phys: Sammy Lopez MD Acct: [id number] Dis Date: Status: ADM IN PHONE #: [phone] Exam Date: 12/09/2019607 FAX #: [phone] Reason: ASPIRATION EXAMS: CPT CODE: [id number] XR CHEST 1 V 50807 - XR CHEST 1 V, 12/09/2019 5:59 [...] By: [email or web address] Orig Print D/T: S: 12/09/2019 (0662) PAGE 1 Signed Report CBC W/MANUAL [id number] 06:28:00* Test Item Value Reference Range Interpretation [...] MORPHOLOGY (test code = PLTMORPH) CBC W/MANUAL [id number] 06:28:00* Test Item Value Reference Range Interpretation [...] MORPHOLOGY (test code = PLTMORPH) CBC W/MANUAL [id number] 06:28:00* Test Item Value Reference Range Interpretation [...] MORPHOLOGY (test code = PLTMORPH) CBC W/MANUAL [id number] 06:27:00* Test Item Value Reference Range Interpretation [...] MORPHOLOGY (test code = PLTMORPH) CBC W/MANUAL [id number] 06:27:00* Test Item Value Reference Range Interpretation [...] MORPHOLOGY (test code = PLTMORPH) COMPREHENSIVE METABOLIC [id number] 05:55:00* Test Item Value Reference Range Interpretation [...] due to change in reagent. COMPREHENSIVE METABOLIC [id number] 05:45:00* Test Item Value Reference Range Interpretation [...] code = ALKP) IUnit/L 45-117 CBC W/MANUAL [id number] 08:10:00* Test Item Value Reference Range Interpretation [...] IMMAT) 0 % 0-0 N COMPREHENSIVE METABOLIC [id number] 08:00:00* Test Item Value Reference Range Interpretation Comments SODIUM (test code = NA) 135 mmol/L 136-145 L POTASSIUM (test code = K) 2.9 mmol/L 3.5-5.1 L Re sults called to [id number] by TROY 12/08/19 0800Critical results verified and [...] due to change in reagent. CBC W/MANUAL [id number] 07:44:00* Test Item Value Reference Range Interpretation [...] MORPHOLOGY (test code = PLTMORPH) CBC W/MANUAL [id number] 07:44:00* Test Item Value Reference Range Interpretation [...] MORPHOLOGY (test code = PLTMORPH) CBC W/MANUAL [id number] 07:44:00* Test Item Value Reference Range Interpretation [...] MORPHOLOGY (test code = PLTMORPH) CBC W/MANUAL [id number] 07:44:00* Test Item Value Reference Range Interpretation [...] MORPHOLOGY (test code = PLTMORPH) CBC W/MANUAL [id number] 07:44:00* Test Item Value Reference Range Interpretation [...] PLTEST) PLATELET MORPHOLOGY (test code = PLTMORPH) [id number] 10:48:00* Test Item Value Reference Range Interpretation Comments MAGNESIUM (test code = MAG) 1.0 mg/dL 1.8-2.4 L SPECIMEN COMMENTS: add onCOMMENTS TO CATTLE CARE WORKER: add onAB HIV 1 07:36:00* Test Item Value Reference Range Interpretation Comments AB HIV 1 2 (test code = TUY40MH) Nonreactive NonReactive It is recognized that currently available assays for thedetection of antibodies to HIV-1 and/or HIV-2 may notdetect all infected individuals. A negative test result doesnot exclude the possibility of exposure to or infection withHIV. HIV antibodies may be undetectable in some stages ofthe infection and in some clinical conditions. CBC W/MANUAL [id number] 05:17:00* Test Item Value Reference Range Interpretation [...] 2+ ANISOCYTOSIS (test code = ANISO) 2+ SATYA CELLS (test code = SATYA) 1+ NONE OVALOCYTES (test code = OVAL) 1+ MORPHOLOGY COMMENT (test code = MOC) TEST NOT PERFORMED PLATELET ESTIMATE (test code = PLTEST) ADEQUATE PLATELET MORPHOLOGY (test code = PLTMORPH) NORMAL IMMATURE FORMS (test code = IMMAT) 0 % 0-0 N COMPREHENSIVE METABOLIC [id number] 05:07:00* Test Item Value Reference Range Interpretation Comments SODIUM (test code = NA) 136 mmol/L 136-145 N POTASSIUM (test code = K) 2.8 mmol/L 3.5-5.1 Re sults called to [id number] by V.LAB.KN2 12/07/19 0504Critical results verified and read back [...] due to change in reagent. CBC W/MANUAL [id number] 04:39:00* Test Item Value Reference Range Interpretation [...] MORPHOLOGY (test code = PLTMORPH) CBC W/MANUAL [id number] 04:39:00* Test Item Value Reference Range Interpretation [...] MORPHOLOGY (test code = PLTMORPH) CBC W/MANUAL [id number] 04:39:00* Test Item Value Reference Range Interpretation [...] MORPHOLOGY (test code = PLTMORPH) CBC W/MANUAL [id number] 04:39:00* Test Item Value Reference Range Interpretation [...] MORPHOLOGY (test code = PLTMORPH) CBC W/MANUAL [id number] 04:39:00* Test Item Value Reference Range Interpretation [...] PLTEST) PLATELET MORPHOLOGY (test code = PLTMORPH) [id number] 21:57:00* Test Item Value Reference Range Interpretation Comments GLUBED (test code = GLUBED) 82 mg/dL 74-106 N Performed by certified winchman/crane operator at [facility] B-TYPE NATRIURETIC [id number] 09:42:00* Test Item Value Reference Range Interpretation Comments B-TYPE NATRIURETIC PEPTIDE (test code = BNP) 442.53 pgram/mL 0-100 H Has Patient received Natrecor? NO- XR CHEST 1 [id number] 08:47:00 FAX: Sammy Mccain MD [place]: B St: ADM FAX: Carole Cervantes NP [phone] Name: [place] BRYAN [facility] : 1960 Age/S: 59/M [address] [facility] Unit #: [id number] Loc: [facility] [place] [address] Phys: Carole Deutsch NP Acct: [id number] Dis Date: Status: ADM IN PHONE #: [phone] Exam Date: 12/06/2019 0801 FAX #: [phone] Reason: hypotension EXAMS: CPT CODE: [id number] XR CHEST 1 V 06587 REASON FOR EXAM: hypotension Exam Order Da te: 12/06/2019 12:00 AM Ordering Brandon: Carole Deutsch NP PROCEDURE: - XR CHEST [...] Upper abdomen is radiographically unrem arkable. Location: [facility] at 0847 Reported and signed b y: Lico Garcia MD CC: Sammy Lopez MD; Carole Deutsch NP Technologist: RT Tino(R) T rnscrd Date/Time/By: 12/06/2019 (0847) : By: [email or web address] Orig Print D/T: S: 12/06/2019 (2183) PAGE 1 Sign ed Report LACTIC [id number] 02:02:00* Test Item Value Reference Range Interpretation Comments LACTIC ACID (test code = LACT) 2.4 mmol/L 0.4-1.9 HH Results called to [place] [address] by DonnLABSHANON 12/06/19 0201Critical results verified and read back by Nurse? Y [id number] 00:19:00* Test Item Value Reference Range Interpretation Comments GLUBED (test code = GLUBED) 80 mg/dL 74-106 N Performed by certified winchman/crane operator at [facility] CBC W/MANUAL [id number] 22:39:00* Test Item Value Reference Range Interpretation [...] = IMMAT) 0 % 0-0 N LACTIC [id number] 22:32:00* Test Item Value Reference Range Interpretation Comments LACTIC ACID (test code = LACT) 2.5 mmol/L 0.4-1.9 HH Results called to [place] [address] by V.LAB. 12/05/19 2231Critical results verified and read back by Nurse? Y COMPREHENSIVE METABOLIC [id number] 21:53:00* Test Item Value Reference Range Interpretation [...] code = ALKP) IUnit/L 45-117 COMPREHENSIVE METABOLIC [id number] 21:53:00* Test Item Value Reference Range Interpretation [...] due to change in reagent. CBC W/MANUAL [id number] 21:51:00* Test Item Value Reference Range Interpretation [...] MORPHOLOGY (test code = PLTMORPH) CBC W/MANUAL [id number] 21:51:00* Test Item Value Reference Range Interpretation [...] MORPHOLOGY (test code = PLTMORPH) CBC W/MANUAL [id number] 21:51:00* Test Item Value Reference Range Interpretation [...] MORPHOLOGY (test code = PLTMORPH) CBC W/MANUAL [id number] 21:50:00* Test Item Value Reference Range Interpretation [...] MORPHOLOGY (test code = PLTMORPH) CBC W/MANUAL [id number] 21:50:00* Test Item Value Reference Range Interpretation [...] PLATELET MORPHOLOGY (test code = PLTMORPH) LACTIC [id number] 20:52:00* Test Item Value Reference Range Interpretation Comments LACTIC ACID (test code = LACT) 3.4 mmol/L 0.4-1.9 HH Results called to [place] [address] by VAngusLABAngusLT 12/05/19 2052Critical results verified and read back by Nurse? Y [id number] 19:51:00* Test Item Value Reference Range Interpretation Comments GLUBED (test code = GLUBED) 121 mg/dL 74-106 H Performed by certified winchman/crane operator at [facility] LIPID PROFILE (CORONARY RISK)2019-12-05 18:26:00* Test [...] a direct measurement.========= SPECIMEN COMMENTS: add to [id number] 14:18:00* Test Item Value Reference Range Interpretation Comments TROPONIN-I (test code = TROPI) <0.015 ng/mL 0-0.045 N COMMENTS TO CATTLE CARE WORKER: COLLECT 3 HOURS AFTER PREVIOUS SAMPLEPROTHROMBIN [id number] 13:11:00* Test Item Value Reference Range Interpretation [...] (2.5-3.5) IS PATIENT ON ANTICOAGULANTS? NTHYROID STIMULATING [id number] 11:58:00* Test Item Value Reference Range Interpretation Comments THYROID STIMULATING HORMONE (test code = TSH) 4.330 uIU/mL 0.36-3.7 4 H TSH REFERENCE RANGES: EUTHYROID: 0.35 - 4.3 mIU/mL HYPO : > 5.5 mIU/mL HYPER : < 0.35 mIU/mL VALPROIC ACID (DEPAKENE)2019-12-05 11:58:00* Test Item Value Reference Range Interpretation Comments VALPROIC ACID (DEPAKENE) (test code = VALP) 26.0 mcg/mL 50.0-100.0 L B-TYPE NATRIURETIC [id number] 11:21:00* Test Item Value Reference Range Interpretation Comments B-TYPE NATRIURETIC PEPTIDE (test code = BNP) 135.79 pgram/mL 0-100 H [id number] 10:41:00* Test Item Value Reference Range Interpretation Comments TROPONIN-I (test code = TROPI) <0.015 ng/mL 0-0.045 N COMMENTS TO CATTLE CARE WORKER: COLLECT 3 HOURS AFTER PREVIOUS SAMPLEURINALYSIS [id number] 04:02:00* Test Item Value Reference Range Interpretation [...] Urine Source? Clean CatchDRUGS OF ABUSE SCREEN [id number] 04:02:00* Test Item Value Reference Range Interpretation [...] NEGATIVE <300 ng/mL Urine Source? Clean CatchURINALYSIS [id number] 03:46:00* Test Item Value Reference Range Interpretation [...] Urine Source? Clean CatchDRUGS OF ABUSE SCREEN [id number] 03:46:00* Test Item Value Reference Range Interpretation [...] = [place]) <300 ng/mL Urine Source? Clean [id number] 03:09:00* Test Item Value Reference Range Interpretation Comments CKMB (test code = CKMBT) < 1.0 ng/mL 0-6.0 N [id number] 03:09:00* Test Item Value Reference Range Interpretation Comments TROPONIN-I (test code = TROPI) <0.015 ng/mL 0-0.045 N - XR CHEST 1 [id number] 03:05:00 FAX: Mahad Hayden MD [place]: St: [facility] FAX: Disha Garvin [phone] Name: [facility] : 1960 Age/S: 59/M [address] [facility] Unit #: [id number] Loc: [place] [address] Phys: Disha Tucker MD Acct: [id number] Dis Date: Status: REG ER PHONE #: [phone] Exam Date: 12/05/2019 0250 FAX #: [phone] Reason: tachycardia EXAMS: CPT CODE: [id number] XR CHEST 1 V [id number] Location: CHEST X-RAY: AP frontal projection, one view, [...] By: [email or web address] Orig Print D/T: S: 12/05/2019 (0304) PAGE 1 Signed Report - CTA CHEST 2019-12-05 02:25:00 Name: IND[place] BRYAN [facility] : 1960 Age/S: 59 / M [address] [facility] Unit #: [id number] Loc: NEERAJ Bravo [address] Phys: Disha Tucker MD Acct: [id number] Dis Date: Status: REG ER PHONE #: [phone] Exam Date: 12/05/2019 0150 FAX #: [phone] Reason: tachycardia EXAMS: CPT CODE: [id number] CTA CHEST 86887 AFTER HOURS SERVICE ON: 12/05/2019 2:05 AM [...] 1 Signed Report (CONTINUED) Name: INDIANA BRYAN : 1960 Age/S: 59 / M [address] [facility] Unit #: [id number] Loc: ShellyNEERAJ [address] Phys: Disha Tucker MD Acct: [id number] Dis Date: Status: REG ER PHONE #: [phone] Exam Date: 12/05/2019 0150 FAX #: [phone] Reason: tachycardia EXAMS: CPT CODE: [id number] CTA CHEST 92380 < Continued> Small focal patchy infiltrates in the right lower lobe may be consistent with pneumonia. Small hiatal hernia. at 0225 Reported and signed by: Michelle Reese M.D. CC: Mahad Hayden MD; Disha Tucker MD Technologist:RT PASCALE CTDI: DLP: Trnscb Date/Time: 12/05/2019 (224) [email or web address] Orig Print D/T: S: 12/05/2019 (227) PAGE 2 Signed Report BASIC METABOLIC [id number] 18:42:00* Test Item Value Reference Range Interpretation [...] CA) 9.3 mg/dL 8.5-10.1 N BASIC METABOLIC [id number] 18:35:00* Test Item Value Reference Range Interpretation [...] CA) 9.3 mg/dL 8.5-10.1 N CBC W/AUTO [id number] 18:22:00* Test Item Value Reference Range Interpretation [...] (test code = MDIFF) NO CBC W/AUTO [id number] 18:21:00* Test Item Value Reference Range Interpretation [...] = BA#) K/mm3 0.0-0.2 COVID 19 INHOUSE [id number] 17:40:00* Test Item Value Reference Range Interpretation Comments COVID 19 INHOUSE AG (test code = [id number]) NEGATIVE - CT HEAD/BRAIN W/O [id number] 17:38:00 Name: IND[place]NA BRYAN [facility] : 1960 Age/S: 58 / M [facility] Unit #: [id number] Loc: NEERAJ Bravo [address] Phys: Mahad Hayden MD Acct: [id number] Dis Date: Status: REG ER PHONE #: [phone] Exam Date: 12/03/2019 9593 FAX #: [phone] Reason: combative EXAMS: CPT CODE: [id number] CT HEAD/BRAIN W/O CONT 13115 EXAM: CT of the head without contrast; [...] in the absence of edema. 2. 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 Location code: [facility] at 1738 Reported and si gned by: Christopher Hawley M.D. CC: Mahad Hayden MD Technologist:Diana Song RT(R),CT CTDI: DLP: Trnscb Date/Time: 12/03/2019 (1738) [email or web address] Orig Print D/T: S: 12/03/2019 (0963) PAGE 1 Signed Report BASIC METABOLIC [id number] 17:34:00* Test Item Value Reference Range Interpretation [...] CA) 8.8 mg/dL 8.5-10.1 N HEPATIC FUNCTION [id number] 17:34:00* Test Item Value Reference Range Interpretation [...] due to change in reagent. THYROID STIMULATING [id number] 17:34:00* Test Item Value Reference Range Interpretation Comments THYROID STIMULATING HORMONE (test code = TSH) 4.450 uIU/mL 0.36-3.7 4 H TSH REFERENCE RANGES: EUTHYROID: 0.35 - 4.3 mIU/mL HYPO : > 5.5 mIU/mL HYPER : < 0.35 mIU/mL [id number] 17:34:00* Test Item Value Reference Range Interpretation [...] ANADDITIONAL CHARGE TO THE PATIENT. BASIC METABOLIC [id number] 17:09:00* Test Item Value Reference Range Interpretation [...] code = CA) mg/dL 8.5-10.1 HEPATIC FUNCTION [id number] 17:09:00* Test Item Value Reference Range Interpretation [...] code = ALKP) IUnit/L 45-117 THYROID STIMULATING [id number] 17:09:00* Test Item Value Reference Range Interpretation Comments THYROID STIMULATING HORMONE (test code = TSH) uIU/mL 0.36-3.7 4 [id number] 17:09:00* Test Item Value Reference Range Interpretation Comments ALCOHOL (test code = ALC) mg/dL 0-3 CBC W/O [id number] 16:58:00* Test Item Value Reference Range Interpretation [...] MPV) 9.0 fL 6.7-11.0 N CBC W/O [id number] 16:56:00* Test Item Value Reference Range Interpretation [...] code = 6690-2) 7.37 4.8-10.8 VERIFIED PREVIOUS RESULTSCHI [facility]anoBlood erythrocytes automated count (number/volume)2019-11-22 09:09:00* Test Item Value Reference Range Interpretation Comments Red Blood Count (test code = 789-8) 3.12 4.3-5.7 [facility] hemoglobin measurement (moles/volume)2019-11-22 09:09:00* Test Item Value Reference Range Interpretation Comments Hemoglobin (test code = 00789-8) 8.3 14.0-18.0 [facility] ConroeAutomated blood hematocrit (volume fraction)2019-11-22 09:09:00* Test Item Value Reference Range Interpretation Comments Hematocrit (test code = 4544-3) 26.3 38.2-49.6 [facility] ConroeAutomated erythrocyte mean corpuscular txemuz2317-71-52 09:09:00* Test Item Value Reference Range Interpretation Comments Mean Corpuscular Volume (test code = 787-2) 84.3 81-99 [facility] ConroeAutomated erythrocyte mean corpuscular hemoglobin (mass per erythrocyte)2019-11-22 09:09:00* Test Item Value Reference Range Interpretation Comments Mean Corpuscular Hemoglobin (test code = 785-6) 26.6 28-32 [facility] ConroeAutomated erythrocyte mean corpuscular hemoglobin concentration measurement (mass/volume)2019-11-22 09:09:00* Test Item Value Reference Range Interpretation Comments Mean Corpuscular Hemoglobin Concent (test code = 786-4) 31.6 31-35 [facility] ConroeRDW CewYo-Gbg0671-99-26 09:09:00* Test Item Value Reference Range Interpretation Comments Red Cell Distribution Width (test code = 13533-1) 16.7 11.7 -14.4 [facility] ConroeAutomated blood platelet count (count/volume)2019-11-22 09:09:00* Test Item Value Reference Range Interpretation Comments Platelet Count (test code = 777-3) 106 140-360 [facility]anoed blood segmented neutrophil count as percentage of total mnpwlonjsx3243-05-14 09:09:00* Test Item Value Reference Range Interpretation Comments Neutrophils (%) (Auto) (test code = 59592-2) 66.4 38.7-80.0 [facility] ConroeAutomated blood lymphocyte count as percentage ot total bzvsjyyuyl1835-02-33 09:09:00* Test Item Value Reference Range Interpretation Comments Lymphocytes (%) (Auto) (test code = 736-9) 18.0 18.0-39.1 [facility] ConroeAutomated blood monocyte count as percentage of total xmsotpwomk3222-82-01 09:09:00* Test Item Value Reference Range Interpretation Comments Monocytes (%) (Auto) (test code = 5905-5) 11.9 4.4-11.3 [facility] ConroeAutomated blood eosinophil count as percentage of total nqnuspreat6294-86-62 09:09:00* Test Item Value Reference Range Interpretation Comments Eosinophils (%) (Auto) (test code = 713-8) 0.7 0.0-6.0 [facility]roeAutomated blood basophil count as percentage of total qtaaedohfw7816-14-28 09:09:00* Test Item Value Reference Range Interpretation Comments Basophils (%) (Auto) (test code = 706-2) 1.2 0.0-1.0 [facility] ConroeFluoroscopic procedure less than one hour vofgerox9137-81-20 09:09:00* Test Item Value Reference Range Interpretation Comments IM GRANULOCYTES % (test code = IM GRANULOCYTES %) 1.8 0.0- 1.0 [facility] ConroeAutomated blood neutrophil count 2019-11-22 09:09:00* Test Item Value Reference Range Interpretation Comments Neutrophils # (Auto) (test code = 751-8) 4.9 2.1-6.9 [facility]roeBlood lymphocytes count (number/volume) 2019-11-22 09:09:00* Test Item Value Reference Range Interpretation Comments Lymphocytes # (Auto) (test code = 97327-0) 1.3 1.0-3.2 [facility]roeBlood monocytes automated count (number/volume)2019-11-22 09:09:00* Test Item Value Reference Range Interpretation Comments Monocytes # (Auto) (test code = 742-7) 0.9 0.2-0.8 [facility] ConroeAutomated blood eosinophil count 2019-11-22 09:09:00* Test Item Value Reference Range Interpretation Comments Eosinophils # (Auto) (test code = 711-2) 0.1 0.0-0.4 [facility] ConroeAutomated blood basophil count (count/volume)2019-11-22 09:09:00* Test Item Value Reference Range Interpretation Comments Basophils # (Auto) (test code = 704-7) 0.1 0.0-0.1 [facility] ConroeFluoroscopic procedure less than one hour mlptwydr6109-89-29 09:09:00* Test Item Value Reference Range Interpretation Comments Absolute Immature Granulocyte (auto (carroll t code = Absolute Immature Granulocyte (auto) 0.13 0-0.1 [facility] Mounder[facility] or plasma sodium measurement (moles/volume)2019-11-22 09:09:00* Test Item Value Reference Range Interpretation Comments Sodium Level (test code = 2951-2) 140 136-145 [facility] Mounderum or plasma potassium measurement (moles/volume)2019-11-22 09:09:00* Test Item Value Reference Range Interpretation Comments Potassium Level (test code = 2823-3) 3.8 3.5-5.1 [facility] Mounderum or plasma chloride measurement (moles/volume)2019-11-22 09:09:00* Test Item Value Reference Range Interpretation Comments Chloride Level (test code = 2075-0) 106 98-107 [facility] Mounderum or plasma carbon dioxide, total measurement (moles/volume)2019-11-22 09:09:00* Test Item Value Reference Range Interpretation Comments Carbon Dioxide Level (test code = 2028-9) 23 22-29 [facility] Mounderum or plasma anion ibh1672-80-70 09:09:00* Test Item Value Reference Range Interpretation Comments Anion Gap (test code = 67791-0) 14.8 8-16 [facility] Mounderum or plasma urea nitrogen measurement (mass/volume)2019-11-22 09:09:00* Test Item Value Reference Range Interpretation Comments Blood Urea Nitrogen (test code = 3094-0) 7 7-26 [facility] Mounderum or plasma creatinine measurement (mass/volume)2019-11-22 09:09:00* Test Item Value Reference Range Interpretation Comments Creatinine (test code = 2160-0) 0.74 0.72-1.25 [facility] Mounderum or plasma urea nitrogen/creatinine mass eqazc3326-61-01 09:09:00* Test Item Value Reference Range Interpretation Comments BUN/Creatinine Ratio (test code = 3097-3) 9 6-25 [facility] ConroeEstimated glomerular filtration rate (GFR) avuwkstlzauja7502-39-15 09:09:00* Test Item Value Reference Range Interpretation Comments Estimat Glomerular Filtration Rate (test code = 372126074) > 60 >60 Ranges were taken from the National Kidney Disease Education Program and the [facility] literature.Reference ranges:60 or greater: Moizee08-00 ( for 3 consecutive months): Chronic kidney disease 15 or less: Kidney failureHCA Houston Healthcare ConroeGlucose jvsdgpjysfk6581-81-28 09:09:00* Test Item Value Reference Range Interpretation Comments Glucose Level (test code = ARK9701) 79 74-118 [facility] Mounderum or plasma calcium measurement (mass/volume)2019-11-22 09:09:00* Test Item Value Reference Range Interpretation Comments Calcium Level (test code = 64164-1) 8.7 8.4-10.2 [facility] ConroeCHEST SINGLE (PORTABLE)2019-11-21 08:55:00 [facility] [address] [place] [address] Patient Name: INDIANA BRYAN MR #: [id number] : 1960 Age/Sex: 58/M Req #: [id number] Adm Physician: SAMMY LOPEZ MD Ordered by: CAROLE DEUTSCH BEHAVIORAL PEDIATRICIAN Report #: [id number] Location: MED/SURG2 Room/Bed: [facility] Procedure: [id number] DX/CHEST SINGLE (PORTABLE) Exam Date: 11/21/19 Exam Time: 604 REPORT STATUS: Signed EXAMINATION: CHEST SINGLE (PORTABLE) [...] RING MD 6 COPY TO: CAMI DEUTSCH NP Fluoroscopic procedure less than one hour xzxzvpja2149-59-79 04:55:00* Test Item Value Reference Range Interpretation Comments Differential Total Cells Counted (test code = Differen tial Total Cells Counted) 100 [facility] blood neutrophils/100 leukocytes 2019-11-21 04:55:00* Test Item Value Reference Range Interpretation Comments Neutrophils % (Manual) (test code = 05697-6) 64 40-74 [facility] blood lymphocytes/100 leukocytes 2019-11-21 04:55:00* Test Item Value Reference Range Interpretation Comments Lymphocytes % (Manual) (test code = 737-7) 20 19-48 [facility] blood monocytes/100 leukocytes 2019-11-21 04:55:00* Test Item Value Reference Range Interpretation Comments Monocytes % (Manual) (test code = 744-3) 10 3.4-9.0 [facility] blood eosinophil count as percentage of total vkzgildmjs0433-36-43 04:55:00* Test Item Value Reference Range Interpretation Comments Eosinophils % (Manual) (test code = 714-6) 2 0-7 [facility] ConroeManual blood myelocytes/100 leukocytes 2019-11-21 04:55:00* Test Item Value Reference Range Interpretation Comments Myelocytes % (test code = 749-2) 4 0-0 [facility] platelets count by estimate (number/volume)2019-11-21 04:55:00* Test Item Value Reference Range Interpretation Comments Platelet Estimate (test code = 67984-5) MODERATELY DECREASED [facility] ConroePlatelet jpbidrfthn3026-42-51 04:55:00* Test Item Value Reference Range Interpretation Comments Platelet Morphology Comment (test code = 28999-6) NORMAL [facility] anisocytosis detection by light hlwltqfeoz5404-13-09 04:55:00* Test Item Value Reference Range Interpretation Comments Anisocytosis (test code = 702-1) SLIGHT [facility] ovalocytes detection by light xmbwbvxzbt9425-62-05 04:55:00* Test Item Value Reference Range Interpretation Comments Ovalocytes (test code = 774-0) FEW [facility] satya cells detection by light ubanpmsyzj0694-69-94 04:55:00* Test Item Value Reference Range Interpretation Comments Satya Cells (test code = 7790-9) SLIGHT [facility] ConroeElliptocyte dukflcflk5681-20-07 04:55:00 * Test Item Value Reference Range Interpretation Comments Elliptocytes (test code = 97235-7) SLIGHT [facility] acanthocytes detection by light rjwiriodog8504-69-74 04:55:00* Test Item Value Reference Range Interpretation Comments Acanthocytes (test code = 7789-1) FEW [facility] schistocytes detection by light vlbcezxxrx9713-81-30 04:55:00* Test Item Value Reference Range Interpretation Comments Schistocytes (test code = 800-3) RARE [facility] ConroeRBC mrkonzvutx5541-31-41 04:55:00* Test Item Value Reference Range Interpretation Comments Red Cell Morphology Comment (test code = 6742-1) ABNORMAL [facility] Mounderum or plasma total bilirubin measurement (mass/volume)2019-11-21 04:55:00* Test Item Value Reference Range Interpretation Comments Total Bilirubin (test code = 1975-2) 0.4 0.2-1.2 [facility] ConroeFluoroscopic procedure less than one hour cfwgoiqq6722-37-72 04:55:00* Test Item Value Reference Range Interpretation Comments Aspartate Amino Transf (AST/SGOT) (test code = Aspartate Amino Transf (AST/SGOT)) 12 5-34 [facility] Mounderum or plasma alanine aminotransferase measurement (enzymatic activity/volume)2019-11-21 04:55:00* Test Item Value Reference Range Interpretation Comments Alanine Aminotransferase (ALT/SGPT) (test code = 1742-6) < 6 0-55 [facility] Mounderum or plasma protein measurement (mass/volume)2019-11-21 04:55:00* Test Item Value Reference Range Interpretation Comments Total Protein (test code = 2885-2) 5.0 6.5-8.1 [facility] Mounderum or plasma albumin measurement (mass/volume)2019-11-21 04:55:00* Test Item Value Reference Range Interpretation Comments Albumin (test code = 1751-7) 3.3 3.5-5.0 [facility] ConroePlasma globulin measurement (mass/volume) 2019-11-21 04:55:00* Test Item Value Reference Range Interpretation Comments Globulin (test code = 76344-9) 1.7 2.3-3.5 [facility] Mounderum or plasma albumin/globulin mass diava2169-06-62 04:55:00* Test Item Value Reference Range Interpretation Comments Albumin/Globulin Ratio (test code = 1759-0) 1.9 0.8-2.0 [facility] Mounderum or plasma alkaline phosphatase measurement (enzymatic activity/volume)2019-11-21 04:55:00* Test Item Value Reference Range Interpretation Comments Alkaline Phosphatase (test code = 6768-6) 38 40-150 [facility] ConroeFluoroscopic procedure less than one hour qnxiepjf8066-65-56 04:55:00* Test Item Value Reference Range Interpretation Comments Differential Total Cells Counted (test code = Earlene tial Total Cells Counted) 100 [facility] blood neutrophils/100 leukocytes 2019-11-21 04:55:00* Test Item Value Reference Range Interpretation Comments Neutrophils % (Manual) (test code = 91024-7) 64 40-74 [facility] blood lymphocytes/100 leukocytes 2019-11-21 04:55:00* Test Item Value Reference Range Interpretation Comments Lymphocytes % (Manual) (test code = 737-7) 20 19-48 [facility] blood monocytes/100 leukocytes 2019-11-21 04:55:00* Test Item Value Reference Range Interpretation Comments Monocytes % (Manual) (test code = 744-3) 10 3.4-9.0 [facility] blood eosinophil count as percentage of total vqzayotoad8946-89-54 04:55:00* Test Item Value Reference Range Interpretation Comments Eosinophils % (Manual) (test code = 714-6) 2 0-7 [facility] blood myelocytes/100 leukocytes 2019-11-21 04:55:00* Test Item Value Reference Range Interpretation Comments Myelocytes % (test code = 749-2) 4 0-0 [facility] platelets count by estimate (number/volume)2019-11-21 04:55:00* Test Item Value Reference Range Interpretation Comments Platelet Estimate (test code = 57600-5) MODERATELY DECREASED [facility] ConroePlatelet ywuledqhqo2212-71-57 04:55:00* Test Item Value Reference Range Interpretation Comments Platelet Morphology Comment (test code = 26913-2) NORMAL [facility] anisocytosis detection by light rbkzfhfukd5092-43-88 04:55:00* Test Item Value Reference Range Interpretation Comments Anisocytosis (test code = 702-1) SLIGHT [facility] ovalocytes detection by light tphtpkoiit1067-95-71 04:55:00* Test Item Value Reference Range Interpretation Comments Ovalocytes (test code = 774-0) FEW [facility] satya cells detection by light xmjlgkskow4937-77-84 04:55:00* Test Item Value Reference Range Interpretation Comments [place] Cells (test code = 7790-9) SLIGHT [facility] ConroeElliptocyte vuuqduydr1201-78-16 04:55:00 * Test Item Value Reference Range Interpretation Comments Elliptocytes (test code = 11784-8) SLIGHT [facility] acanthocytes detection by light dctorpdcng4977-94-71 04:55:00* Test Item Value Reference Range Interpretation Comments Acanthocytes (test code = 7789-1) FEW [facility]roeBlood schistocytes detection by light ortqqaqvps7783-78-51 04:55:00* Test Item Value Reference Range Interpretation Comments Schistocytes (test code = 800-3) RARE [facility] ConroeRBC qrambcrotc9036-23-67 04:55:00* Test Item Value Reference Range Interpretation Comments Red Cell Morphology Comment (test code = 6742-1) ABNORMAL [facility] ConroeMODIFIED BA. WLRPHDQ6973-39-41 13:42:00 [facility] [address] [address] Patient Name: IDNIANA BRYAN MR #: [id number] : 1960 Age/Sex: 58/M Req #: [id number] Adm Physician: SAMMY LOPEZ MD Ordered by: SAMMY LOPEZ MD Repor t #: [id number] Location: MED/SURG2 Room/Bed : [facility] Procedure: [id number] DX/MODIFIED BA. SWALLOW Exam Date: 11/20/19 Exam [...] athology report for further details. Signed by: Junacarlos Quinn MD on 0 1:43 PM Dictated By: JUANCARLOS QUINN MD 1343 Transcribed By: EARL on 11/20/19 1343 COPY TO: SAMMY LOPEZ MD Serum or plasma iron measurement (mass/volume) 2019-11-20 05:00:00* Test Item Value Reference Range Interpretation Comments Iron Level (test code = 2498-4) 44 65-175 [facility] or plasma iron binding capacity measurement (mass/volume)2019-11-20 05:00:00* Test Item Value Reference Range Interpretation Comments Total Iron Binding Capacity (test code = 2500-7) 104 261-4 78 [facility] Mounder[facility] or plasma iron saturation measurement (mass fraction)2019-11-20 05:00:00* Test Item Value Reference Range Interpretation Comments Percent Iron Saturation (test code = 2502-3) 42 15-50 [facility] or plasma transferrin measurement (mass/volume)2019-11-20 05:00:00* Test Item Value Reference Range Interpretation Comments Transferrin (test code = 3034-6) 74 174-364 [facility] or plasma iron measurement (mass/volume)2019-11-20 05:00:00* Test Item Value Reference Range Interpretation Comments Iron Level (test code = 2498-4) 44 65-175 [facility]ounderum or plasma iron binding capacity measurement (mass/volume)2019-11-20 05:00:00* Test Item Value Reference Range Interpretation Comments Total Iron Binding Capacity (test code = 2500-7) 104 261-4 78 [facility]ounderum or plasma iron saturation measurement (mass fraction)2019-11-20 05:00:00* Test Item Value Reference Range Interpretation Comments Percent Iron Saturation (test code = 2502-3) 42 15-50 [facility] Mounderum or plasma transferrin measurement (mass/volume)2019-11-20 05:00:00* Test Item Value Reference Range Interpretation Comments Transferrin (test code = 3034-6) 74 174-364 [facility] ConroeCapillary blood glucose measurement by glucometer (mass/volume)2019-11-19 19:18:00* Test Item Value Reference Range Interpretation Comments Bedside Glucose (test code = 98090-2) 93 70-120 Meter ID: [id number] Houston Healthcare ConroeCapillary blood glucose measurement by glucometer (mass/volume)2019-11-19 19:18:00* Test Item Value Reference Range Interpretation Comments Bedside Glucose (test code = 26192-8) 93 70-120 Meter ID: [id number] [facility] Healthcare ConroeCHEST SINGLE (PORTABLE)2019-11-19 17:58:00 [facility] [address] [place] [address] Patient Name: INDIANA BRYAN MR #: [id number] : 1960 Age/Sex: 58/M Req #: [id number] Adm Physician: SAMMY LOPEZ MD Ordered by: CAROLE DEUTSCH BEHAVIORAL PEDIATRICIAN Report #: [id number] Location: [facility] Room/Bed: [facility] Procedure: [id number] DX/CHEST SINGLE (PORTABLE) Exam Date: 11/19/19 Exam [...] COPY TO: CAROLE DEUTSCH NP Urine color xozgcukrzdqbl8822-45-06 13:18:00* Test Item Value Reference Range Interpretation Comments Urine Color (test code = 5778-6) YELLOW YELLOW [facility] ConroeUrine evegwkt6930-02-95 13:18:00* Test Item Value Reference Range Interpretation Comments Urine Clarity (test code = 82226-9) SL CLOUDY CLEAR [facility] Moundpecific gravity of Urine by Test strip 2019-11-19 13:18:00* Test Item Value Reference Range Interpretation Comments Urine Specific [place] (test code = 5811-5) 1.025 1.010-1.02 5 [facility] ConroeUrine pH measurement by automated test grbtq1558-85-40 13:18:00* Test Item Value Reference Range Interpretation Comments Urine pH (test code = 44321-1) 7 5-7 [facility] ConroeUrine leukocyte esterase detection by pynbyycb1587-37-86 13:18:00* Test Item Value Reference Range Interpretation Comments Urine Leukocyte Esterase (test code = 5799-2) NEGATIVE NEGATIVE [facility] ConroeUrine nitrite kzfvdqnqs1696-09-70 13:18:00* Test Item Value Reference Range Interpretation Comments Urine Nitrite (test code = 08597-9) POSITIVE NEGATIVE [facility] ConroeUrine protein measurement by test strip (mass/volume)2019-11-19 13:18:00* Test Item Value Reference Range Interpretation Comments Urine Protein (test code = 5804-0) NEGATIVE NEGATIVE [facility] ConroeUrine glucose vnxmlmapi8595-42-17 13:18:00* Test Item Value Reference Range Interpretation Comments Urine Glucose (UA) (test code = 2349-9) NEGATIVE NEGATIVE [facility]roeUrine ketones detection by automated test szzcg9987-17-18 13:18:00* Test Item Value Reference Range Interpretation Comments Urine Ketones (test code = 92113-9) NEGATIVE NEGATIVE [facility]roeUrine urobilinogen measurement by test strip (mass/volume)2019-11-19 13:18:00* Test Item Value Reference Range Interpretation Comments Urine Urobilinogen (test code = 35530-6) 0.2 0.2-1 [facility]roeUrine total bilirubin measurement (mass/volume)2019-11-19 13:18:00* Test Item Value Reference Range Interpretation Comments Urine Bilirubin (test code = 1978-6) NEGATIVE NEGATIVE [facility]roeUrine erythrocytes gxvrrdfwd8945-87-11 13:18:00* Test Item Value Reference Range Interpretation Comments Urine Blood (test code = 59327-4) NEGATIVE NEGATIVE [facility]roeAutomated urine sediment leukocyte count by microscopy (number/high power field)2019-11-19 13:18:00* Test Item Value Reference Range Interpretation Comments Urine WBC (test code = 5821-4) 0-5 0-5 [facility]roeErythrocytes detection in urine sediment by light lwunyhsauw1476-69-08 13:18:00* Test Item Value Reference Range Interpretation Comments Urine RBC (test code = 99409-6) 0-5 0-5 [facility]roeBacteria detection in urine sediment by light nvhwfdiatu4982-78-19 13:18:00* Test Item Value Reference Range Interpretation Comments Urine Bacteria (test code = 27503-3) FEW NONE [facility] ConroeEpithelial cells detection in urine sediment by light rxreldyios7158-33-73 13:18:00* Test Item Value Reference Range Interpretation Comments Urine Epithelial Cells (test code = 62830-2) FEW NONE [facility] blood band neutrophils form/100 xyadrlbtxb2813-18-99 06:17:00* Test Item Value Reference Range Interpretation Comments Band Neutrophils % (test code = 764-1) [facility] adfxycjeqt6119-69-69 06:17:00* Test Item Value Reference Range Interpretation Comments Basophils % (Manual) (test code = 07299-9) 1 0-1.5 [facility] blood metamyelocytes/100 mnqosemcjm5444-02-83 06:17:00* Test Item Value Reference Range Interpretation Comments Metamyelocytes % (test code = 740-1) 1 0-0 [facility] blood band neutrophils form/100 vshndinkle2578-12-26 06:17:00* Test Item Value Reference Range Interpretation Comments Band Neutrophils % (test code = 764-1) 2 [facility] azeslwitkq5428-19-25 06:17:00* Test Item Value Reference Range Interpretation Comments Basophils % (Manual) (test code = 01139-8) 1 0-1.5 [facility] blood metamyelocytes/100 vgabwivryd1515-77-67 06:17:00* Test Item Value Reference Range Interpretation Comments Metamyelocytes % (test code = 740-1) 1 0-0 [facility] poikilocytosis detection by light erzolipkdc6959-02-56 05:00:00* Test Item Value Reference Range Interpretation Comments Poikilocytosis (test code = 779-9) SLIGHT [facility] poikilocytosis detection by light cbbozbqykj2698-07-13 05:00:00* Test Item Value Reference Range Interpretation Comments Poikilocytosis (test code = 779-9) SLIGHT [facility]roeCHES XRAY LINE ZBHZGHWIH5362-17-53 21:22:00 [place] [address] Patient Name: INDIANA BRYAN MR #: [id number] : 1960 Age/Sex: 58/M Req #: [id number] Adm Physician: SAMMY LOPEZ MD Ordered by: SAMMY LOPEZ MD Report #: [id number] Location: MED/SURG2 Room/Bed: [facility] Procedure: [id number] DX/CHEST XRAY LI NE PLACEMENT Exam Date: [...] COPY TO: SAMMY LOPEZ MD Stool lactoferrin cmebxiuwa6597-31-55 23:35:00* Test Item Value Reference Range Interpretation Comments Stool Lactoferrin (LAB) (test code = 13516-7) POSITIVE NEGATIVE Testing on stool aspirate specimens is outside lease operator claims since specime n type not validated on this assay.[facility] gastrointestinal hemoglobin ujqgnzvcq8478-06-38 23:35:00* Test Item Value Reference Range Interpretation Comments Stool Occult Blood (test code = 2335-8) NEGATIVE NEGATIVE [facility] ConroeClostridium difficile A and B toxin assay 2019-11-15 23:35:00* Test Item Value Reference Range Interpretation Comments Clostridium Difficile Toxin A & B (test code = 180308434) POSI TIVE NEGATIVE Results called to MIGUELINA PIERCE RN at 1030 on 11/16/19 by Arsen Walker. RB OK.Results called to BERTRAM PUTNAM in infection control at 1030 on 11/16/19 by Arsen Walker.Testing on stool aspirate specimens is outside lease operator c laims since specimen type not validated on this assay.[facility] lactoferrin lktxkrtvl6290-75-19 23:35:00* Test Item Value Reference Range Interpretation Comments Stool Lactoferrin (LAB) (test code = 17912-1) POSITIVE NEGATIVE Testing on stool aspirate specimens is outside lease operator claims since specime n type not validated on this assay.[facility] gastrointestinal hemoglobin qssnborsx2563-93-01 23:35:00* Test Item Value Reference Range Interpretation Comments Stool Occult Blood (test code = 2335-8) NEGATIVE NEGATIVE [facility]roeClostridium difficile A and B toxin assay 2019-11-15 23:35:00* Test Item Value Reference Range Interpretation Comments Clostridium Difficile Toxin A & B (test code = 704188073) POSI TIVE NEGATIVE Results called to MIGUELINA PIERCE RN at 1030 on 11/16/19 by Arsen Walker. RB OK.Results called to BERTRAM PUTNAM in infection control at 1030 on 11/16/19 by Arsen Walker.Testing on stool aspirate specimens is outside lease operator c laims since specimen type not validated on this assay.[facility]roeCHEST SINGLE (PORTABLE)2019-11-15 22:44:00 [place] [address] Patient Name: INDIANA BRYAN MR #: [id number] : 1960 Age/Sex: 58/M Req #: [id number] Adm Physician: SAMMY LOPEZ MD Ordered by: CAROLE DEUTSCH NP Report #: [id number] Location: MED/SURG2 Room/Bed: [facility] Procedure: [id number] DX/CHEST SINGLE (PORTABLE) Exam Date: 11/15/19 Exam [...] Automated reticulocyte count as percentage of total kxfhjipqrlhw4317-63-96 04:40:00* Test Item Value Reference Range Interpretation Comments Percent Reticulocyte Count (test code = 97955-1) 0.8 0.8-2 .2 [facility] or plasma ferritin measurement (mass/volume)2019-11-15 04:40:00* Test Item Value Reference Range Interpretation Comments Ferritin (test code = 2276-4) 949.96 21.81-274.66 [facility]roeBlood cobalamin (vitamin B12) measurement (mass/volume)2019-11-15 04:40:00* Test Item Value Reference Range Interpretation Comments Vitamin B12 Level (test code = 65872-7) > 1999816 [facility] Mounderum or plasma folate measurement (mass/volume)2019-11-15 04:40:00* Test Item Value Reference Range Interpretation Comments Folate (test code = 2284-8) 17.8 >3.0 A serum folate concentration of less than 3.1 ng/mL isconsidered to represent cl inical deficiency.Performed at: [facility] [address] [id number] Director: Timmy Shaffer MD, Phone: [phone] [facility] Healthcare ConroeAutomated reticulocyte count as percentage of total rfzfszxwplkg3562-68-22 04:40:00* Test Item Value Reference Range Interpretation Comments Percent Reticulocyte Count (test code = 63643-3) 0.8 0.8-2 .2 [facility] or plasma ferritin measurement (mass/volume)2019-11-15 04:40:00* Test Item Value Reference Range Interpretation Comments Ferritin (test code = 2276-4) 949.96 21.81-274.66 [facility]roeBlood cobalamin (vitamin B12) measurement (mass/volume)2019-11-15 04:40:00* Test Item Value Reference Range Interpretation Comments Vitamin B12 Level (test code = 91230-7) > 1999816 [facility] or plasma folate measurement (mass/volume)2019-11-15 04:40:00* Test Item Value Reference Range Interpretation Comments Folate (test code = 2284-8) 17.8 >3.0 A serum folate concentration of less than 3.1 ng/mL isconsidered to represent cl inical deficiency.Performed at: [facility] [address] [id number] Director: Timmy Shaffer MD, Phone: [phone] [facility] Healthcare ConroeProthrombin time (PT) in platelet poor plasma by coagulation bcawl8802-39-68 18:15:00* Test Item Value Reference Range Interpretation Comments Prothrombin Time (test code = 5902-2) 12.8 11.9-14.5 [facility] ConroeINR in Platelet poor plasma by Coagulation wetut9487-38-15 18:15:00* Test Item Value Reference Range Interpretation Comments Prothromb Time International Ratio (test code = 6301-6) 0.92 Oral Anticoagulant Therapy INR Values:1. Low Intensity Therapy 1.5 - 2.02 . Moderate Intensity Therapy 2.0 - 3.03. High Intensity Therapy(1) 2.5 - 3. 54. High Intensity Therapy(2) 3.0 - 4.05. Panic Value INR > 5.0 [facility] ConroeActivated partial thromboplastin time (aPTT) in platelet poor plasma by coagulation klpyy4818-59-57 18:15:00* Test Item Value Reference Range Interpretation Comments Activated Partial Thromboplast Time (test code = 92057-4) 27.5 23.8-35.5 [facility] ConroeFluoroscopic procedure less than one hour bdpzmqvm3790-75-76 18:15:00* Test Item Value Reference Range Interpretation Comments Lactic Acid Level (test code = Lactic Acid Level) 1.1 0.5- 2.0 [facility] or plasma thyrotropin measurement by detection limit <= 0.005 miu/l (units/volume)2019-11-14 18:15:00* Test Item Value Reference Range Interpretation Comments Thyroid Stimulating Hormone (TSH) (test code = 15539-0) 6.668 0.350-4.940 [facility]roeBlood znrdvvl5227-80-83 18:15:00* Test Item Value Reference Range Interpretation Comments Blood Culture (test code = 12590056) NO GROWTH AFTER 5 DAYS, FINAL REPORT [facility] ConroeProthrombin time (PT) in platelet poor plasma by coagulation ayeps5118-21-46 18:15:00* Test Item Value Reference Range Interpretation Comments Prothrombin Time (test code = 5902-2) 12.8 11.9-14.5 [facility] ConroeINR in Platelet poor plasma by Coagulation mamxk1399-80-01 18:15:00* Test Item Value Reference Range Interpretation Comments Prothromb Time International Ratio (test code = 6301-6) 0.92 Oral Anticoagulant Therapy INR Values:1. Low Intensity Therapy 1.5 - 2.02 . Moderate Intensity Therapy 2.0 - 3.03. High Intensity Therapy(1) 2.5 - 3. 54. High Intensity Therapy(2) 3.0 - 4.05. Panic Value INR > 5.0 [facility] ConroeActivated partial thromboplastin time (aPTT) in platelet poor plasma by coagulation zoeav4101-78-51 18:15:00* Test Item Value Reference Range Interpretation Comments Activated Partial Thromboplast Time (test code = 60370-0) 27.5 23.8-35.5 [facility] or plasma thyrotropin measurement by detection limit <= 0.005 miu/l (units/volume)2019-11-14 18:15:00* Test Item Value Reference Range Interpretation Comments Thyroid Stimulating Hormone (TSH) (test code = 41367-4) 6.668 0.350-4.940 [facility]roeBlood wprjmrz6089-52-03 18:15:00* Test Item Value Reference Range Interpretation Comments Blood Culture (test code = 92335364) NO GROWTH AFTER 5 DAYS, FINAL REPORT [facility] ConroeFluoroscopic procedure less than one hour ziapseoi5303-60-17 16:06:00* Test Item Value Reference Range Interpretation Comments Coronavirus (PCR) (test code = Coronavirus (PCR)) NOT DETECTED NOTD ETECTED [employer] Aptima SARS-CoV-2 assay is a nucleic amplification test intended for the qualitative detection of RNA from SARS-CoV-2 from nasopharyngeal (BEHAVIORAL PEDIATRICIAN) specimens . It is used under Emergency [...] for reprat testing oc clinically indicated.Tesing performed by:[facility] [address] [place] [id number], Bertram Johnson MD, PhD [facility] ConroeFluoroscopic procedure less than one hour fakpamga6600-10-17 16:06:00* Test Item Value Reference Range Interpretation Comments Coronavirus (PCR) (test code = Coronavirus (PCR)) NOT DETECTED NOTD ETECTED [employer] Aptima SARS-CoV-2 assay is a nucleic amplification test intended for the qualitative detection of RNA from SARS-CoV-2 from nasopharyngeal (BEHAVIORAL PEDIATRICIAN) specimens . It is used under Emergency [...] for reprat testing oc clinically indicated.Tesing performed by:[facility] [address] [place] [address] [id number], Bertram Johnson MD, PhD [facility] ConroeCT BRAIN QH4919-26-96 14:27:00 [place] [address] Patient Name: INDIANA BRYAN MR #: [id number] : 1960 Age/Sex: 58/M Req #: [id number] Adm Physician: Ordered by: James Pierre MD Report #: [id number] Location: [facility] mccallum/Bed: Procedure: CT/CT BRAIN WO Exam Date: 11/14/19 Exam [...] hydrocephalus or displacement. Arteries: Hyperdensity of the [place] of [place] vessels and dural sinuses t [...] 2:30 PM Dictated By: DIPAK CLIFFORD MD 1430 Transcribed By: EARL on 11/14/19 1430 CO PY TO: JAMES PIERRE MD CT ABDOMEN/PELVIS [id number] 14:19:00 [place] [address] Patient Name: INDIANA BRYAN MR #: [id number] : 1960 Age/Sex: 58/M Req #: [id number] Adm Physician: Ordered by: James Pierre MD Report #: [id number] Location: [facility] mccallum/Bed: Procedure: [id number] CT/CT ABDOM EN/PELVIS W Exam Date: 11/14/19 Exam Time: 1330 REPORT STATUS: Signed EXAM: CT Abdom en and Pelvis WITH intravenous contrast INDICATION: Diarrhea, leukocytosi s COMPARISON: None. TECHNIQUE: Abdomen and pelvis were scanned [employer]i ng a multidetector helical scanner from the [...] Interpretation Comments Magnesium Level (test code = 85600-1) 1.8 1.3-2.1 [facility] ConroeTroponin I measurement by highly sensitive enzyme drnbkqlktzg2369-67-26 08:40:00* Test Item Value Reference Range Interpretation Comments Troponin I (test code = 27292-2) 0.049 0-0.300 [facility] or plasma magnesium measurement (mass/volume)2019-11-14 08:40:00* Test Item Value Reference Range Interpretation Comments Magnesium Level (test code = 50225-1) 1.8 1.3-2.1 [facility]roeBlood leukocytes automated count (number/volume)2019-11-09 19:40:00* Test Item Value Reference Range Interpretation Comments White Blood Count (test code = 6690-2) 13.73 4.8-10.8 [facility]roeBlood erythrocytes automated count (number/volume)2019-11-09 19:40:00* Test Item Value Reference Range Interpretation Comments Red Blood Count (test code = 789-8) 3.34 4.3-5.7 [facility]roeBlood hemoglobin measurement (moles/volume)2019-11-09 19:40:00* Test Item Value Reference Range Interpretation Comments Hemoglobin (test code = 72959-8) 8.9 14.0-18.0 [facility] ConroeAutomated blood hematocrit (volume fraction)2019-11-09 19:40:00* Test Item Value Reference Range Interpretation Comments Hematocrit (test code = 4544-3) 28.2 38.2-49.6 [facility] ConroeAutomated erythrocyte mean corpuscular bhvske2324-11-14 19:40:00* Test Item Value Reference Range Interpretation Comments Mean Corpuscular Volume (test code = 787-2) 84.4 81-99 [facility] ConroeAutomated erythrocyte mean corpuscular hemoglobin (mass per erythrocyte)2019-11-09 19:40:00* Test Item Value Reference Range Interpretation Comments Mean Corpuscular Hemoglobin (test code = 785-6) 26.6 28-32 [facility] ConroeAutomated erythrocyte mean corpuscular hemoglobin concentration measurement (mass/volume)2019-11-09 19:40:00* Test Item Value Reference Range Interpretation Comments Mean Corpuscular Hemoglobin Concent (test code = 786-4) 31.6 31-35 [facility] ConroeRDW DonOy-Qki4055-76-13 19:40:00* Test Item Value Reference Range Interpretation Comments Red Cell Distribution Width (test code = 40704-6) 15.9 11.7 -14.4 [facility] ConroeAutomated blood platelet count (count/volume)2019-11-09 19:40:00* Test Item Value Reference Range Interpretation Comments Platelet Count (test code = 777-3) 339 140-360 [facility] ConroeAutomated blood segmented neutrophil count as percentage of total ptnyymrbem3404-33-00 19:40:00* Test Item Value Reference Range Interpretation Comments Neutrophils (%) (Auto) (test code = 57421-8) 65.7 38.7-80.0 [facility] ConroeAutomated blood lymphocyte count as percentage ot total odakrgqjbz6533-73-52 19:40:00* Test Item Value Reference Range Interpretation Comments Lymphocytes (%) (Auto) (test code = 736-9) 3.7 18.0-39.1 [facility] ConroeAutomated blood monocyte count as percentage of total yjrvvvduxy3344-80-99 19:40:00* Test Item Value Reference Range Interpretation Comments Monocytes (%) (Auto) (test code = 5905-5) 11.1 4.4-11.3 [facility] ConroeAutomated blood eosinophil count as percentage of total fmhxetxzhr0603-37-94 19:40:00* Test Item Value Reference Range Interpretation Comments Eosinophils (%) (Auto) (test code = 713-8) 1.2 0.0-6.0 [facility] ConroeAutomated blood basophil count as percentage of total xjgtnbqryr6398-74-88 19:40:00* Test Item Value Reference Range Interpretation Comments Basophils (%) (Auto) (test code = 706-2) 0.4 0.0-1.0 [facility] ConroeFluoroscopic procedure less than one hour rdpaadrj7299-19-98 19:40:00* Test Item Value Reference Range Interpretation Comments IM GRANULOCYTES % (test code = IM GRANULOCYTES %) 17.9 0.0- 1.0 [facility] ConroeAutomated blood neutrophil count 2019-11-09 19:40:00* Test Item Value Reference Range Interpretation Comments Neutrophils # (Auto) (test code = 751-8) 9.0 2.1-6.9 [facility]roeBlood lymphocytes count (number/volume) 2019-11-09 19:40:00* Test Item Value Reference Range Interpretation Comments Lymphocytes # (Auto) (test code = 09575-9) 0.5 1.0-3.2 [facility]roeBlood monocytes automated count (number/volume)2019-11-09 19:40:00* Test Item Value Reference Range Interpretation Comments Monocytes # (Auto) (test code = 742-7) 1.5 0.2-0.8 [facility] ConroeAutomated blood eosinophil count 2019-11-09 19:40:00* Test Item Value Reference Range Interpretation Comments Eosinophils # (Auto) (test code = 711-2) 0.2 0.0-0.4 [facility] ConroeAutomated blood basophil count (count/volume)2019-11-09 19:40:00* Test Item Value Reference Range Interpretation Comments Basophils # (Auto) (test code = 704-7) 0.1 0.0-0.1 [facility] ConroeFluoroscopic procedure less than one hour pesgutqj5285-41-32 19:40:00* Test Item Value Reference Range Interpretation Comments Absolute Immature Granulocyte (auto (carroll t code = Absolute Immature Granulocyte (auto) 2.46 0-0.1 [facility] or plasma sodium measurement (moles/volume)2019-11-09 19:40:00* Test Item Value Reference Range Interpretation Comments Sodium Level (test code = 2951-2) 137 136-145 [facility] or plasma potassium measurement (moles/volume)2019-11-09 19:40:00* Test Item Value Reference Range Interpretation Comments Potassium Level (test code = 2823-3) 3.2 3.5-5.1 [facility] or plasma chloride measurement (moles/volume)2019-11-09 19:40:00* Test Item Value Reference Range Interpretation Comments Chloride Level (test code = 2075-0) 99 98-107 [facility] or plasma carbon dioxide, total measurement (moles/volume)2019-11-09 19:40:00* Test Item Value Reference Range Interpretation Comments Carbon Dioxide Level (test code = 2028-9) 27 22-29 [facility] or plasma anion umo6351-91-40 19:40:00* Test Item Value Reference Range Interpretation Comments Anion Gap (test code = 65837-1) 14.2 8-16 [facility] or plasma urea nitrogen measurement (mass/volume)2019-11-09 19:40:00* Test Item Value Reference Range Interpretation Comments Blood Urea Nitrogen (test code = 3094-0) 25 7-26 [facility] or plasma creatinine measurement (mass/volume)2019-11-09 19:40:00* Test Item Value Reference Range Interpretation Comments Creatinine (test code = 2160-0) 1.04 0.72-1.25 [facility] or plasma urea nitrogen/creatinine mass glfrd2375-82-83 19:40:00* Test Item Value Reference Range Interpretation Comments BUN/Creatinine Ratio (test code = 3097-3) 24 6-25 [facility] ConroeEstimated glomerular filtration rate (GFR) sofkmlziqacck0985-52-66 19:40:00* Test Item Value Reference Range Interpretation Comments Estimat Glomerular Filtration Rate (test code = 485332229) > 60 >60 Ranges were taken from the National Kidney Disease Education Program and the [facility] literature.Reference ranges:60 or greater: Liixeb58-73 ( for 3 consecutive months): Chronic kidney disease 15 or less: Kidney failureHCA Houston Healthcare ConroeGlucose hcbloelikpy9107-32-76 19:40:00* Test Item Value Reference Range Interpretation Comments Glucose Level (test code = GIS5734) 106 74-118 [facility] or plasma calcium measurement (mass/volume)2019-11-09 19:40:00* Test Item Value Reference Range Interpretation Comments Calcium Level (test code = 63347-5) 7.5 8.4-10.2 [facility]ounder[facility] or plasma total bilirubin measurement (mass/volume)2019-11-09 19:40:00* Test Item Value Reference Range Interpretation Comments Total Bilirubin (test code = 1975-2) 0.2 0.2-1.2 [facility] ConroeFluoroscopic procedure less than one hour udpxdnhw9357-44-92 19:40:00* Test Item Value Reference Range Interpretation Comments Aspartate Amino Transf (AST/SGOT) (test code = Aspartate Amino Transf (AST/SGOT)) 8 5-34 [facility]ounder[facility] or plasma alanine aminotransferase measurement (enzymatic activity/volume)2019-11-09 19:40:00* Test Item Value Reference Range Interpretation Comments Alanine Aminotransferase (ALT/SGPT) (test code = 1742-6) < 6 0-55 [facility] or plasma protein measurement (mass/volume)2019-11-09 19:40:00* Test Item Value Reference Range Interpretation Comments Total Protein (test code = 2885-2) 4.9 6.5-8.1 [facility] or plasma albumin measurement (mass/volume)2019-11-09 19:40:00* Test Item Value Reference Range Interpretation Comments Albumin (test code = 1751-7) 1.6 3.5-5.0 [facility] ConroePlasma globulin measurement (mass/volume) 2019-11-09 19:40:00* Test Item Value Reference Range Interpretation Comments Globulin (test code = 19051-3) 3.3 2.3-3.5 [facility] or plasma albumin/globulin mass rubet9882-32-48 19:40:00* Test Item Value Reference Range Interpretation Comments Albumin/Globulin Ratio (test code = 1759-0) 0.5 0.8-2.0 [facility] or plasma alkaline phosphatase measurement (enzymatic activity/volume)2019-11-09 19:40:00* Test Item Value Reference Range Interpretation Comments Alkaline Phosphatase (test code = 6768-6) 83 40-150 [facility] ConroeTroponin I measurement by highly sensitive enzyme mpcvhbphgwk9700-19-04 19:40:00* Test Item Value Reference Range Interpretation Comments Troponin I (test code = 75896-8) 0.006 0-0.300 [facility] or plasma lipase measurement (enzymatic activity/volume)2019-11-09 19:40:00* Test Item Value Reference Range Interpretation Comments Lipase (test code = 3040-3) [facility] or plasma lipase measurement (enzymatic activity/volume)2019-11-09 19:40:00* Test Item Value Reference Range Interpretation Comments Lipase (test code = 3040-3) [facility] [facility] or plasma lipase measurement (enzymatic activity/volume)2019-11-09 19:40:00* Test Item Value Reference Range Interpretation Comments Lipase (test code = 3040-3) 28 [facility] [id number] 09:42:00 * Test Item Value Reference Range [...] CA) 8.0 mg/dL 8.5-10.1 L BASIC METABOLIC [id number] 09:34:00* Test Item Value Reference Range Interpretation [...] code = CA) mg/dL 8.5-10.1 COMPREHENSIVE METABOLIC [id number] 00:13:00* Test Item Value Reference Range Interpretation [...] due to change in reagent. THYROID STIMULATING [id number] 00:13:00* Test Item Value Reference Range Interpretation Comments THYROID STIMULATING HORMONE (test code = TSH) 3.860 uIU/mL 0.36-3.7 4 H TSH REFERENCE RANGES: EUTHYROID: 0.35 - 4.3 mIU/mL HYPO : > 5.5 mIU/mL HYPER : < 0.35 mIU/mL COMPREHENSIVE METABOLIC [id number] 23:52:00* Test Item Value Reference Range Interpretation [...] code = ALKP) IUnit/L 45-117 THYROID STIMULATING [id number] 23:52:00* Test Item Value Reference Range Interpretation Comments THYROID STIMULATING HORMONE (test code = TSH) uIU/mL 0.36-3.7 4 [id number] 20:59:00* Test Item Value Reference Range Interpretation Comments GLUBED (test code = GLUBED) 84 mg/dL 74-106 N Performed by certified winchman/crane operator at [facility] BASIC METABOLIC [id number] 07:10:00* Test Item Value Reference Range Interpretation [...] CA) 8.8 mg/dL 8.5-10.1 N BASIC METABOLIC [id number] 07:03:00* Test Item Value Reference Range Interpretation [...] code = CA) mg/dL 8.5-10.1 BASIC METABOLIC [id number] 05:30:00* Test Item Value Reference Range Interpretation [...] CA) 8.7 mg/dL 8.5-10.1 N BASIC METABOLIC [id number] 05:28:00* Test Item Value Reference Range Interpretation [...] code = CA) mg/dL 8.5-10.1 BASIC METABOLIC [id number] 09:17:00* Test Item Value Reference Range Interpretation [...] = CA) 9.1 mg/dL 8.5-10.1 N SERUM [id number] 03:52:00* Test Item Value Reference Range Interpretation Comments SERUM IRON (test code = IRON) 20 ug/dL 50-175 L [id number] 16:40:00* Test Item Value Reference Range Interpretation Comments GLYCOSYLATED HEMOGLOBIN (HA1C) (test code = GLYHGB) 5.0 % HbA1 SUGGESTED DIAGNOSIS: HbA1C (%) Diabetic >6.4Prediabetes 5.7 - 6.4Normal <5.7 ESTIMATED AVERAGE GLUCOSE (test code = EAG) 97 MG/DL SPECIMEN COMMENTS: add on to am labsCOMMENTS TO CATTLE CARE WORKER: add on to am labs BASIC METABOLIC [id number] 09:56:00* Test Item Value Reference Range Interpretation [...] 8.7 mg/dL 8.5-10.1 N TOTAL IRON BINDING [id number] 09:47:00* Test Item Value Reference Range Interpretation Comments TOTAL IRON BINDING CAPACITY (test code = TIBC) 210 mcg/dL 250-450 L PT REFUSAL [id number] LAVERNE.V.LAB.SE 09/27/19 1345 PT REFUSED TO DRAW,V.LAB.VP1 0222 RN [id number] 09:47:00* Test Item Value Reference Range Interpretation Comments PHOSPHORUS (test code = PHOS) 3.6 mg/dL 2.5-4.9 N [id number] 09:47:00* Test Item Value Reference Range Interpretation Comments MAGNESIUM (test code = MAG) 1.9 mg/dL 1.8-2.4 N BASIC METABOLIC [id number] 09:45:00* Test Item Value Reference Range Interpretation [...] CALCIUM (test code = CA) mg/dL 8.5-10.1 [id number] 09:45:00* Test Item Value Reference Range Interpretation Comments PHOSPHORUS (test code = PHOS) mg/dL 2.5-4.9 [id number] 09:45:00* Test Item Value Reference Range Interpretation Comments MAGNESIUM (test code = MAG) 1.9 mg/dL 1.8-2.4 N RETICULOCYTE [id number] 09:21:00* Test Item Value Reference Range Interpretation [...] deficiency. PT REFUSED TO DRAW V.LAB.VP1 09/27/19 022 RN [id number] W/AUTO [id number] 09:21:00* Test Item Value Reference Range Interpretation [...] code = MDIFF) NO - XR ABDOMEN [id number] 16:07:00 FAX: Sammy Mccain MD [place]: [address] St: ADM Name: [place] [facility] : [birth year] 57 Age/S: 58/M [address] [facility] Unit #: [id number] Loc: V.[facility] [place][note 2]7 [place] [address] Phys: Edis Mcdonough MD Acct: [id number] Dis Date: Status: ADM IN PHONE #: [phone] Exam Date: 09/27/2019 1530 FAX #: [phone] Reason: abdominal distention EXAMS: CPT CODE: [id number] XR ABDOMEN 2V 35144 HISTORY: abdominal distention TECHNIQUE: AP abdomen x-ray COMPARISON: None FINDINGS/ IMPRESSION: Diffuse gaseous distenti on of both the small and large bowel and the stomach is redemonstrated. This is unchanged from the previous exam and may represent a pseudoobstr uction versus ileus. Location: [facility] at 1607 Reported and signed by: Lico Garcia MD CC: Sammy Lopez MD Technologist: ADELA ALCARAZ; Judith Dubose T(R); ... Trnscrd Date/Time/By: 09/27/2019 (1607) : By: t.RENITAR.RR31 Orig Print D/T: S: 09/27/2019 (1610) PAGE 1 Signed Report FECES OVA [id number] 15:11:00* Test Item Value Reference Range Interpretation Comments CONCENTRATE RESULT (test code = CONC) Final report () These results were obtained using wet preparation(s) andtrichrome stained smear. This test does not include testingfor Cryptosporidium parvum, Cyclospora, or Microsporidia. TRICHROME RESULT (test code = TRIC) SPECIMEN COMMENTS: RANDOMSOURCE: STOOLSPECIMEN DESCRIPTION: RANDOMSPECIMEN COMME NTS: RANDOAG GIARDIA [id number] 15:11:00* Test Item Value Reference Range Interpretation Comments AG GIARDIA FECES (test code = GIARDAG) Negative Negative Performed At: [facility] [id number] Leonardo MD Ph:[phone] SPECIMEN COMMENTS: RANDOMSOURCE: STOOLSPECIMEN DESCRIPTION: RANDOMSPECIMEN COMME NTS: RANDOFECES OVA [id number] 15:11:00* Test Item Value Reference Range Interpretation Comments CONCENTRATE RESULT (test code = CONC) Final report () These results were obtained using wet preparation(s) andtrichrome stained smear. This test does not include testingfor Cryptosporidium parvum, Cyclospora, or Microsporidia. TRICHROME RESULT (test code = TRIC) () No ova, cysts, or parasites seen.One negative specimen does not rule out the possibility ofa parasitic infection.Performed At: [facility] [id number] Leonardo MD Ph:[phone] SPECIMEN COMMENTS: RANDOMSOURCE: STOOLSPECIMEN DESCRIPTION: RANDOMSPECIMEN COMME NTS: GENAOAG GIARDIA [id number] 15:11:00* Test Item Value Reference Range Interpretation Comments AG GIARDIA FECES (test code = GIARDAG) Negative Negative Performed At: [facility] [address] [id number] Leonardo MD Ph:[phone] SPECIMEN COMMENTS: RANDOMSOURCE: STOOLSPECIMEN DESCRIPTION: RANDOMSPECIMEN COMME NTS: [id number] 20:09:00* Test Item Value Reference Range Interpretation Comments GLUBED (test code = GLUBED) 77 mg/dL 74-106 N Performed by certified winchman/crane operator at [facility] [id number] 11:42:00* Test Item Value Reference Range Interpretation Comments GLUBED (test code = GLUBED) 93 mg/dL 74-106 N Performed by certified winchman/crane operator at [facility] [id number] 07:36:00* Test Item Value Reference Range Interpretation Comments GLUBED (test code = GLUBED) 75 mg/dL 74-106 N Performed by certified winchman/crane operator at [facility] BASIC METABOLIC [id number] 05:27:00* Test Item Value Reference Range Interpretation [...] code = CA) mg/dL 8.5-10.1 BASIC METABOLIC [id number] 05:27:00* Test Item Value Reference Range Interpretation [...] code = CA) 8.6 mg/dL 8.5-10.1 N [id number] 04:58:00* Test Item Value Reference Range Interpretation Comments HEMOGLOBIN (test code = HGB) 9.6 gram/dL 13.0-17.5 L PLATELET [id number] 04:58:00* Test Item Value Reference Range Interpretation Comments PLATELET COUNT (test code = PLT) 219 K/mm3 150-450 N [id number] 21:08:00* Test Item Value Reference Range Interpretation Comments GLUBED (test code = GLUBED) 102 mg/dL 74-106 N Performed by certified winchman/crane operator at [facility] [id number] 17:00:00* Test Item Value Reference Range Interpretation Comments GLUBED (test code = GLUBED) 88 mg/dL 74-106 N Performed by certified winchman/crane operator at [facility] [id number] 13:40:00* Test Item Value Reference Range Interpretation Comments POTASSIUM (test code = K) 4.0 mmol/L 3.5-5.1 N FECES OVA [id number] 12:08:00* Test Item Value Reference Range Interpretation Comments CONCENTRATE RESULT (test code = CONC) TRICHROME RESULT (test code = TRIC) SPECIMEN COMMENTS: RANDOMSOURCE: STOOLSPECIMEN DESCRIPTION: RANDOMSPECIMEN COMME NTS: RUSTY GIARDIA [id number] 12:08:00* Test Item Value Reference Range Interpretation Comments AG GIARDIA FECES (test code = GIARDAG) Negative Negative Performed At: [facility] [id number] Timmy Leonardo MD Ph:[phone] SPECIMEN COMMENTS: RANDOMSOURCE: STOOLSPECIMEN DESCRIPTION: RANDOMSPECIMEN COMME NTS: [id number] 10:49:00* Test Item Value Reference Range Interpretation Comments GLUBED (test code = GLUBED) 80 mg/dL 74-106 N Performed by certified winchman/crane operator at [facility] [id number] 20:04:00* Test Item Value Reference Range Interpretation Comments GLUBED (test code = GLUBED) 98 mg/dL 74-106 N Performed by certified winchman/crane operator at [facility] [id number] 16:52:00* Test Item Value Reference Range Interpretation Comments GLUBED (test code = GLUBED) 112 mg/dL 74-106 H Performed by certified winchman/crane operator at [facility] [id number] 12:29:00* Test Item Value Reference Range Interpretation Comments GLUBED (test code = GLUBED) 93 mg/dL 74-106 N Performed by certified winchman/crane operator at [facility] BASIC METABOLIC [id number] 11:38:00* Test Item Value Reference Range Interpretation [...] CA) 8.0 mg/dL 8.5-10.1 L PATIENT REFUSED NURSE(OXE4889)V.LAB. 09/24/19 0551BASIC METABOLIC PANEL 2019-09-24 11:31:00* Test Item Value [...] code = CA) mg/dL 8.5-10.1 PATIENT REFUSED NURSE(DAN0203)V.LAB. 09/24/19 [id number] 08:29:00* Test Item Value Reference Range Interpretation Comments GLUBED (test code = GLUBED) 77 mg/dL 74-106 N Performed by certified winchman/crane operator at [facility] [id number] 21:09:00* Test Item Value Reference Range Interpretation Comments GLUBED (test code = GLUBED) 106 mg/dL 74-106 N Performed by certified winchman/crane operator at [facility] [id number] 17:45:00* Test Item Value Reference Range Interpretation Comments GLUBED (test code = GLUBED) 86 mg/dL 74-106 N Performed by certified winchman/crane operator at [facility] [id number] 12:22:00* Test Item Value Reference Range Interpretation Comments GLUBED (test code = GLUBED) 83 mg/dL 74-106 N Performed by certified winchman/crane operator at [facility] BASIC METABOLIC [id number] 09:18:00* Test Item Value Reference Range Interpretation [...] CA) 8.1 mg/dL 8.5-10.1 L BASIC METABOLIC [id number] 09:07:00* Test Item Value Reference Range Interpretation [...] CALCIUM (test code = CA) mg/dL 8.5-10.1 [id number] 08:12:00* Test Item Value Reference Range Interpretation Comments GLUBED (test code = GLUBED) 85 mg/dL 74-106 N Performed by certified winchman/crane operator at [facility] [id number] 20:43:00* Test Item Value Reference Range Interpretation Comments GLUBED (test code = GLUBED) 84 mg/dL 74-106 N Performed by certified winchman/crane operator at [facility] [id number] 15:59:00* Test Item Value Reference Range Interpretation Comments GLUBED (test code = GLUBED) 76 mg/dL 74-106 N [facility] winchman/crane [facility]~ [id number] 12:19:00* Test Item Value Reference Range Interpretation Comments GLUBED (test code = GLUBED) 78 mg/dL 74-106 N Performed by certified winchman/crane operator at [facility] [id number] 08:28:00* Test Item Value Reference Range Interpretation Comments GLUBED (test code = GLUBED) 76 mg/dL 74-106 N Performed by certified winchman/crane operator at [facility] BASIC METABOLIC [id number] 07:39:00* Test Item Value Reference Range Interpretation [...] code = CA) 8.4 mg/dL 8.5-10.1 L [id number] 21:15:00* Test Item Value Reference Range Interpretation Comments GLUBED (test code = GLUBED) 90 mg/dL 74-106 N Performed by certified winchman/crane operator at [facility] [id number] 16:49:00* Test Item Value Reference Range Interpretation Comments GLUBED (test code = GLUBED) 82 mg/dL 74-106 N Performed by certified winchman/crane operator at [facility] [id number] 12:08:00* Test Item Value Reference Range Interpretation Comments GLUBED (test code = GLUBED) 82 mg/dL 74-106 N Performed by certified winchman/crane operator at [facility] [id number] 08:55:00* Test Item Value Reference Range Interpretation Comments PHOSPHORUS (test code = PHOS) 3.6 mg/dL 2.5-4.9 N PER RN RICHI/FLU9095 COME BACK AFTER BREAKFAST @0354 V.LAB.[facility] 09/21/19 0550 [id number] 08:55:00* Test Item Value Reference Range Interpretation Comments MAGNESIUM (test code = MAG) 1.9 mg/dL 1.8-2.4 N PER RN RICHI/ENM3158 COME BACK AFTER BREAKFAST @0354 V.LAB.[facility] 09/21/19 0550 BASIC METABOLIC [id number] 08:55:00* Test Item Value Reference Range Interpretation [...] CA) 8.2 mg/dL 8.5-10.1 L PER RN RICHI/IEY4113 COME BACK AFTER LATER @0354V.LAB. 0551 [id number] 08:51:00* Test Item Value Reference Range Interpretation Comments PHOSPHORUS (test code = PHOS) mg/dL 2.5-4.9 PER RN RICHI/GFO8909 COME BACK AFTER BREAKFAST @[facility] V.LAB.[facility] 09/21/19 0550 [id number] 08:51:00* Test Item Value Reference Range Interpretation Comments MAGNESIUM (test code = MAG) 1.9 mg/dL 1.8-2.4 N PER RN RICHI/AEA7711 COME BACK AFTER BREAKFAST @[facility] V.LAB.[facility] 09/21/19 0550 BASIC METABOLIC [id number] 08:51:00* Test Item Value Reference Range Interpretation [...] code = CA) mg/dL 8.5-10.1 PER RN RICHI/QTL6066 [facility]ER [facility]GLUBED 2019-09-21 08:19:00* Test Item Value Reference Range Interpretation Comments GLUBED (test code = GLUBED) 79 mg/dL 74-106 N Performed by certified winchman/crane operator at [facility] [id number] 20:38:00* Test Item Value Reference Range Interpretation Comments GLUBED (test code = GLUBED) 85 mg/dL 74-106 N Performed by certified winchman/crane operator at [facility] [id number] 15:58:00* Test Item Value Reference Range Interpretation Comments GLUBED (test code = GLUBED) 93 mg/dL 74-106 N Performed by certified winchman/crane operator at [facility] [id number] 11:47:00* Test Item Value Reference Range Interpretation Comments GLUBED (test code = GLUBED) 85 mg/dL 74-106 N Performed by certified winchman/crane operator at [facility] BASIC METABOLIC [id number] 09:00:00* Test Item Value Reference Range Interpretation [...] code = CA) 8.1 mg/dL 8.5-10.1 L [id number] 09:00:00* Test Item Value Reference Range Interpretation Comments PHOSPHORUS (test code = PHOS) 3.6 mg/dL 2.5-4.9 N [id number] 09:00:00* Test Item Value Reference Range Interpretation Comments MAGNESIUM (test code = MAG) 2.0 mg/dL 1.8-2.4 N BASIC METABOLIC [id number] 08:55:00* Test Item Value Reference Range Interpretation [...] CALCIUM (test code = CA) mg/dL 8.5-10.1 [id number] 08:55:00* Test Item Value Reference Range Interpretation Comments PHOSPHORUS (test code = PHOS) mg/dL 2.5-4.9 [id number] 08:55:00* Test Item Value Reference Range Interpretation Comments MAGNESIUM (test code = MAG) mg/dL 1.8-2.4 [id number] 08:26:00* Test Item Value Reference Range Interpretation Comments GLUBED (test code = GLUBED) 83 mg/dL 74-106 N Performed by certified winchman/crane operator at [facility] [id number] 20:33:00* Test Item Value Reference Range Interpretation Comments GLUBED (test code = GLUBED) 99 mg/dL 74-106 N Performed by certified winchman/crane operator at [facility] [id number] 16:39:00* Test Item Value Reference Range Interpretation Comments GLUBED (test code = GLUBED) 105 mg/dL 74-106 N Per[facility] certified winchman/crane [facility]~ [id number] 13:51:00* Test Item Value Reference Range Interpretation Comments GLUBED (test code = GLUBED) 83 mg/dL 74-106 N Performed [facility] certified winchman/crane [facility]~ URINE K, [id number] 10:39:00* Test Item Value Reference Range Interpretation Comments URINE K, RANDOM (test code = KU) < 1.0 mmol/L 12-75 L [id number] 10:23:00* Test Item Value Reference Range Interpretation Comments GLUBED (test code = GLUBED) 76 mg/dL 74-106 N Performed by certified winchman/crane [facility] BASIC METABOLIC [id number] 07:21:00* Test Item Value Reference Range Interpretation Comments SODIUM (test code = NA) 141 mmol/L 136-145 N POTASSIUM (test code = K) 2.8 mmol/L 3.5-5.1 [facility] jordan called to [id number] by V.LAB.KN2 09/19/19 0719Critical results verified and read back [...] code = CA) 8.2 mg/dL 8.5-10.1 L [id number] 07:21:00* Test Item Value Reference Range Interpretation Comments PHOSPHORUS (test code = PHOS) 3.3 mg/dL 2.5-4.9 N [id number] 07:21:00* Test Item Value Reference Range Interpretation Comments MAGNESIUM (test code = MAG) 2.0 mg/dL 1.8-2.4 N [id number] 22:13:00* Test Item Value Reference Range Interpretation Comments GLUBED (test code = GLUBED) 85 mg/dL 74-106 N Performed by certified winchman/crane operator at [facility] [id number] 17:34:00* Test Item Value Reference Range Interpretation Comments GLUBED (test code = GLUBED) 90 mg/dL 74-106 N Performed by certified winchman/crane operator at [facility] THYROID STIMULATING [id number] 15:46:00* Test Item Value Reference Range Interpretation Comments THYROID STIMULATING HORMONE (test code = TSH) 7.930 uIU/mL 0.36-3.7 4 H TSH REFERENCE RANGES: EUTHYROID: 0.35 - 4.3 mIU/mL HYPO : > 5.5 mIU/mL HYPER : < 0.35 mIU/mL [id number] 15:40:00* Test Item Value Reference Range Interpretation Comments POTASSIUM (test code = K) 3.8 mmol/L 3.5-5.1 N [id number] 12:38:00* Test Item Value Reference Range Interpretation Comments GLUBED (test code = GLUBED) 85 mg/dL 74-106 N Performed by certified winchman/crane operator at [facility] [id number] 08:43:00* Test Item Value Reference Range Interpretation Comments GLUBED (test code = GLUBED) 84 mg/dL 74-106 N Performed by certified winchman/crane operator at [facility] BASIC METABOLIC [id number] 06:05:00* Test Item Value Reference Range Interpretation Comments SODIUM (test code = NA) 141 mmol/L 136-145 N POTASSIUM (test code = K) 2.7 mmol/L 3.5-5.1 Re sults called to RBN6418/MAX KAHN by V.LAB.EMA 09/18/19 0605Critical results verified [...] CA) 7.7 mg/dL 8.5-10.1 L CBC W/AUTO [id number] 05:50:00* Test Item Value Reference Range Interpretation [...] code = NRBC#) 0.00 K/mm3 0.0-0.1 N [id number] 21:15:00* Test Item Value Reference Range Interpretation Comments GLUBED (test code = GLUBED) 105 mg/dL 74-106 N Performed by certified winchman/crane operator at [facility] [id number] 16:17:00* Test Item Value Reference Range Interpretation Comments GLUBED (test code = GLUBED) 98 mg/dL 74-106 N Performed by certified winchman/crane operator at [facility] THYROID STIMULATING [id number] 13:25:00* Test Item Value Reference Range Interpretation Comments THYROID STIMULATING HORMONE (test code = TSH) 7.290 uIU/mL 0.36-3.7 4 H TSH REFERENCE RANGES: EUTHYROID: 0.35 - 4.3 mIU/mL HYPO : > 5.5 mIU/mL HYPER : < 0.35 mIU/mL SPECIMEN COMMENTS: add on to am labsCOMMENTS TO CATTLE CARE WORKER: add on to am labs [id number] 12:31:00* Test Item Value Reference Range Interpretation Comments GLUBED (test code = GLUBED) 331 mg/dL 74-106 H Performed by certified winchman/crane operator at [facility] [id number] 08:49:00* Test Item Value Reference Range Interpretation Comments GLUBED (test code = GLUBED) 75 mg/dL 74-106 N Performed by certified winchman/crane operator at [facility] BASIC METABOLIC [id number] 06:22:00* Test Item Value Reference Range Interpretation [...] CA) 8.1 mg/dL 8.5-10.1 L BASIC METABOLIC [id number] 06:10:00* Test Item Value Reference Range Interpretation [...] CALCIUM (test code = CA) mg/dL 8.5-10.1 [id number] 20:33:00* Test Item Value Reference Range Interpretation Comments GLUBED (test code = GLUBED) 80 mg/dL 74-106 N Performed by certified winchman/crane operator at [facility] [id number] 16:47:00* Test Item Value Reference Range Interpretation Comments GLUBED (test code = GLUBED) 87 mg/dL 74-106 N Performed by certified winchman/crane operator at [facility] [id number] 13:02:00* Test Item Value Reference Range Interpretation Comments GLUBED (test code = GLUBED) 110 mg/dL 74-106 H Performed by certified winchman/crane operator at [facility] [id number] 08:09:00* Test Item Value Reference Range Interpretation Comments GLUBED (test code = GLUBED) 72 mg/dL 74-106 L Performed by certified winchman/crane operator at [facility] BASIC METABOLIC [id number] 07:22:00* Test Item Value Reference Range Interpretation [...] CA) 8.1 mg/dL 8.5-10.1 L BASIC METABOLIC [id number] 07:11:00* Test Item Value Reference Range Interpretation [...] CALCIUM (test code = CA) mg/dL 8.5-10.1 [id number] 21:05:00* Test Item Value Reference Range Interpretation Comments GLUBED (test code = GLUBED) 99 mg/dL 74-106 N Performed by certified winchman/crane operator at [facility] [id number] 16:05:00* Test Item Value Reference Range Interpretation Comments GLUBED (test code = GLUBED) 98 mg/dL 74-106 N Performed by certified winchman/crane operator at [facility] [id number] 11:26:00* Test Item Value Reference Range Interpretation Comments GLUBED (test code = GLUBED) 94 mg/dL 74-106 N Performed by certified winchman/crane operator at [facility] [id number] 08:40:00* Test Item Value Reference Range Interpretation Comments GLUBED (test code = GLUBED) 68 mg/dL 74-106 L Performed by certified winchman/crane operator at [facility] BASIC METABOLIC [id number] 07:32:00* Test Item Value Reference Range Interpretation [...] code = CA) 8.0 mg/dL 8.5-10.1 L [id number] 07:32:00* Test Item Value Reference Range Interpretation Comments MAGNESIUM (test code = MAG) 1.8 mg/dL 1.8-2.4 N BASIC METABOLIC [id number] 07:29:00* Test Item Value Reference Range Interpretation [...] CALCIUM (test code = CA) mg/dL 8.5-10.1 [id number] 07:29:00* Test Item Value Reference Range Interpretation Comments MAGNESIUM (test code = MAG) mg/dL 1.8-2.4 [id number] 22:04:00* Test Item Value Reference Range Interpretation Comments GLUBED (test code = GLUBED) 114 mg/dL 74-106 H Performed by certified winchman/crane operator at [facility] [id number] 22:04:00* Test Item Value Reference Range Interpretation Comments GLUBED (test code = GLUBED) 55 mg/dL 74-106 L Performed by certified [facility] [id number] 16:24:00* Test Item Value Reference Range Interpretation Comments GLUBED (test code = GLUBED) 78 mg/dL 74-106 N Performed by certified winchman/crane operator at [facility] - XR CONT ENEMA W/WO [id number] 16:03:00 FAX: Farhad Bhakta MD [phone] [place]: St: [facility] FAX: Sammy Mccain MD Name: [place] [facility] : 1960 Age/S: 58/M [address] [facility] Unit #: [id number] Loc: V.4017 [place] [address] Phys: Farhad Peña MD Acct: [id number] Dis Date: Status: ADM IN PHONE #: [phone] Exam Date: 09/12/2019 1756 FAX #: [phone] Reason: N/V COFFEE EMESIS EXAMS: CPT CODE: [id number] XR CONT ENEMA W/WO KUB 06303 EXAM: Gastrografin enema; INFORMATION: Constipatio n, megacolon; IMPRESSION: 1. Extremely elongated colon w ith redundant loops and moderate distention. 2. No evidence of s tenotic lesions. 3. Evaluation of colonic mucosa is limited in this sing le contrast Gastrografin study but there were no obvious filling defects . Fluoroscopy Time: 258 sec CAK : 392.031 mGy Location code: [facility] Electronically Sign ed by Brandon Hawley on 09/14/2019 at 1603 Reported and signed by: Christopher Hawley M.D. CC: Farhad Peña MD; Sammy Lopez MD Technologist: Judith Yanes RT(R); ALEJO WINN RT(R) Trnscrd Charlie e/Time/By: 09/14/2019 (1603) : By: MartinGRShiloh Orig Print D/T: S: 2019 (9266) PAGE 1 Signed Report [id number] 12:29:00* Test Item Value Reference Range Interpretation Comments GLUBED (test code = GLUBED) 83 mg/dL 74-106 N Performed by certified winchman/crane operator at [facility] [id number] 08:05:00* Test Item Value Reference Range Interpretation Comments GLUBED (test code = GLUBED) 81 mg/dL 74-106 N Performed by certified winchman/crane operator at [facility] BASIC METABOLIC [id number] 06:35:00* Test Item Value Reference Range Interpretation Comments SODIUM (test code = NA) 141 mmol/L 136-145 N POTASSIUM (test code = K) 2.9 mmol/L 3.5-5.1 L Re sults called to [id number] by V.LAB.KN2 09/14/19 0635Critical results verified and [...] code = CA) 8.2 mg/dL 8.5-10.1 L [id number] 06:10:00* Test Item Value Reference Range Interpretation Comments MAGNESIUM (test code = MAG) 1.9 mg/dL 1.8-2.4 N [id number] 05:13:00* Test Item Value Reference Range Interpretation Comments GLUBED (test code = GLUBED) 73 mg/dL 74-106 L Performed by certified winchman/crane operator at [facility] [id number] 20:29:00* Test Item Value Reference Range Interpretation Comments GLUBED (test code = GLUBED) 69 mg/dL 74-106 L Performed by certified winchman/crane operator [facility] [id number] 16:48:00* Test Item Value Reference Range Interpretation Comments GLUBED (test code = GLUBED) 75 mg/dL 74-106 N Performed by certified winchman/crane operator at [facility] [id number] 12:21:00* Test Item Value Reference Range Interpretation Comments GLUBED (test code = GLUBED) 93 mg/dL 74-106 N Performed by certified winchman/crane operator at [facility] [id number] 08:09:00* Test Item Value Reference Range Interpretation Comments GLUBED (test code = GLUBED) 78 mg/dL 74-106 N Performed by certified winchman/crane operator at [facility] BASIC METABOLIC [id number] 05:32:00* Test Item Value Reference Range Interpretation [...] code = CA) 8.2 mg/dL 8.5-10.1 L [id number] 05:32:00* Test Item Value Reference Range Interpretation Comments MAGNESIUM (test code = MAG) 2.0 mg/dL 1.8-2.4 N BASIC METABOLIC [id number] 05:25:00* Test Item Value Reference Range Interpretation [...] CALCIUM (test code = CA) mg/dL 8.5-10.1 [id number] 05:25:00* Test Item Value Reference Range Interpretation Comments MAGNESIUM (test code = MAG) mg/dL 1.8-2.4 CBC W/AUTO [id number] 04:49:00* Test Item Value Reference Range Interpretation [...] code = NRBC#) 0.00 K/mm3 0.0-0.1 N [id number] 20:17:00* Test Item Value Reference Range Interpretation Comments GLUBED (test code = GLUBED) 98 mg/dL 74-106 N Performed by certified winchman/crane operator at [facility] [id number] 16:17:00* Test Item Value Reference Range Interpretation Comments GLUBED (test code = GLUBED) 70 mg/dL 74-106 L Performed by certified winchman/crane operator at [facility] BASIC METABOLIC [id number] 13:39:00* Test Item Value Reference Range Interpretation [...] CA) 8.2 mg/dL 8.5-10.1 L BASIC METABOLIC [id number] 13:27:00* Test Item Value Reference Range Interpretation [...] CALCIUM (test code = CA) mg/dL 8.5-10.1 [id number] 12:50:00* Test Item Value Reference Range Interpretation Comments GLUBED (test code = GLUBED) 86 mg/dL 74-106 N Performed by certified winchman/crane operator at [facility] [id number] 08:20:00* Test Item Value Reference Range Interpretation Comments GLUBED (test code = GLUBED) 85 mg/dL 74-106 N Performed by certified winchman/crane operator at [facility] [id number] 21:20:00* Test Item Value Reference Range Interpretation Comments GLUBED (test code = GLUBED) 88 mg/dL 74-106 N Performed by certified winchman/crane operator at [facility] [id number] 18:02:00* Test Item Value Reference Range Interpretation Comments GLUBED (test code = GLUBED) 81 mg/dL 74-106 N Performed by certified winchman/crane operator at [facility] [id number] 11:32:00* Test Item Value Reference Range Interpretation Comments GLUBED (test code = GLUBED) 87 mg/dL 74-106 N Performed by certified winchman/crane operator at [facility] [id number] 07:41:00* Test Item Value Reference Range Interpretation Comments MAGNESIUM (test code = MAG) 1.8 mg/dL 1.8-2.4 N SPECIMEN COMMENTS: add to [id number] 07:08:00* Test Item Value Reference Range Interpretation Comments GLUBED (test code = GLUBED) 87 mg/dL 74-106 N Performed by certified winchman/crane operator at [facility] BASIC METABOLIC [id number] 07:03:00* Test Item Value Reference Range Interpretation Comments SODIUM (test code = NA) 142 mmol/L 136-145 N POTASSIUM (test code = K) 2.7 mmol/L 3.5-5.1 Re sults called to [id number] by V.LAB.GP 09/11/19 0703Critical results verified and [...] code = CA) 7.8 mg/dL 8.5-10.1 L [id number] 04:24:00* Test Item Value Reference Range Interpretation Comments GLUBED (test code = GLUBED) 88 mg/dL 74-106 N Performed by certified winchman/crane operator at [facility] [id number] 16:38:00* Test Item Value Reference Range Interpretation Comments GLUBED (test code = GLUBED) 69 mg/dL 74-106 L Performed by certified winchman/crane operator at [facility] BASIC METABOLIC [id number] 16:18:00* Test Item Value Reference Range Interpretation [...] code = CA) 7.9 mg/dL 8.5-10.1 L [id number] 12:07:00* Test Item Value Reference Range Interpretation Comments GLUBED (test code = GLUBED) 86 mg/dL 74-106 N Performed by certified winchman/crane operator at [facility] [id number] 07:56:00* Test Item Value Reference Range Interpretation Comments GLUBED (test code = GLUBED) 77 mg/dL 74-106 N Performed by certified winchman/crane operator at [facility] [id number] 22:43:00* Test Item Value Reference Range Interpretation Comments GLUBED (test code = GLUBED) 92 mg/dL 74-106 N Performed by certified winchman/crane operator at [facility] [id number] 22:43:00* Test Item Value Reference Range Interpretation Comments GLUBED (test code = GLUBED) 107 mg/dL 74-106 H Performed by certified winchman/crane operator at [facility] [id number] 16:42:00* Test Item Value Reference Range Interpretation Comments GLUBED (test code = GLUBED) 94 mg/dL 74-106 N Performed by certified winchman/crane operator at [facility] [id number] 15:37:00* Test Item Value Reference Range Interpretation Comments POTASSIUM (test code = K) 3.1 mmol/L 3.5-5.1 L [id number] 12:16:00* Test Item Value Reference Range Interpretation Comments GLUBED (test code = GLUBED) 114 mg/dL 74-106 H Performed by certified winchman/crane operator at [facility] [id number] 07:52:00* Test Item Value Reference Range Interpretation Comments GLUBED (test code = GLUBED) 89 mg/dL 74-106 N Performed by certified winchman/crane operator at [facility] COMPREHENSIVE METABOLIC [id number] 06:43:00* Test Item Value Reference Range Interpretation Comments SODIUM (test code = NA) 143 mmol/L 136-145 N POTASSIUM (test code = K) 2.7 mmol/L 3.5-5.1 Re sults called to [id number] by SEVEN 09/09/19 0642Critical results verified and read back [...] reference range due to change in reagent. [id number] 06:43:00* Test Item Value Reference Range Interpretation Comments PHOSPHORUS (test code = PHOS) 1.9 mg/dL 2.5-4.9 L [id number] 06:43:00* Test Item Value Reference Range Interpretation Comments MAGNESIUM (test code = MAG) 2.3 mg/dL 1.8-2.4 N Coronavirus 2019 nCoV [id number] 06:40:00* Test Item Value Reference Range Interpretation Comments Coronavirus 2019 nCoV Bedside (test code = [id number]) Negative [id number] 21:32:00* Test Item Value Reference Range Interpretation Comments GLUBED (test code = GLUBED) 90 mg/dL 74-106 N Performed by certified winchman/crane operator at [facility] [id number] 19:27:00* Test Item Value Reference Range Interpretation Comments GLUBED (test code = GLUBED) 107 mg/dL 74-106 H Performed by certified winchman/crane operator at [facility] [id number] 16:20:00* Test Item Value Reference Range Interpretation Comments GLUBED (test code = GLUBED) 105 mg/dL 74-106 N Performed by certified winchman/crane operator at [facility] [id number] 12:04:00* Test Item Value Reference Range Interpretation Comments GLUBED (test code = GLUBED) 97 mg/dL 74-106 N Performed by certified winchman/crane operator at [facility] [id number] 07:58:00* Test Item Value Reference Range Interpretation Comments GLUBED (test code = GLUBED) 99 mg/dL 74-106 N Performed by certified winchman/crane operator at [facility] COMPREHENSIVE METABOLIC [id number] 06:23:00* Test Item Value Reference Range Interpretation [...] reference range due to change in reagent. [id number] 05:56:00* Test Item Value Reference Range Interpretation Comments PHOSPHORUS (test code = PHOS) 2.7 mg/dL 2.5-4.9 N [id number] 05:56:00* Test Item Value Reference Range Interpretation Comments MAGNESIUM (test code = MAG) 2.6 mg/dL 1.8-2.4 H [id number] 20:02:00* Test Item Value Reference Range Interpretation Comments GLUBED (test code = GLUBED) 84 mg/dL 74-106 N Performed by certified winchman/crane operator at [facility] [id number] 16:16:00* Test Item Value Reference Range Interpretation Comments GLUBED (test code = GLUBED) 88 mg/dL 74-106 N Performed by certified winchman/crane operator at [facility] COMPREHENSIVE METABOLIC [id number] 13:49:00* Test Item Value Reference Range Interpretation [...] due to change in reagent. - CTA [id number] 13:47:00 Name: [place] [facility] : 1960 Age/S: 58 / M [address] [facility] Unit #: [id number] Loc: [place] [address] Phys: Edis Broussard BEHAVIORAL PEDIATRICIAN Acct: [id number] Dis Date: Status: ADM IN PHONE #: [phone] Exam Date: 09/07/2019 1310 FAX #: [phone] Reason: aortic disection EXAMS: CPT CODE: [id number] CTA CHEST 43015 HISTORY: Aortic dissection. COMPARISON: CT abdomen from previous exam. Location: [facility]. CTA CHEST: 3-D images. 100 mL of [...] 1 Signed Report (CONTINUED) Name: [place] [facility] : 1960 Age/S: 58 / M [address] [facility] Unit #: [id number] Loc: [place] [address] Phys: Edis Broussard BEHAVIORAL PEDIATRICIAN Acct: [id number] Dis Date: Status: ADM IN PHONE #: [phone] Exam Date: 01/2020 1310 FAX #: [phone] Reason: aortic disect ion EXAMS: CPT CODE: [id number] CTA CHEST 52059 <Continued> Unremarkable SVC. Well-opacified neck vasculature is [...] by: Saw Pierson M.D. CC: Edis Broussard BEHAVIORAL PEDIATRICIAN; Sammy Lopez MD Technologist:Jason Clark RT(R),(MR),(CT) CTDI: DLP: Trnscb Date/Time: 09/07/2019 (134) t.RENITAR.TH4 Orig Print D/T: S: 09/07/2019 (2832) PAGE 2 Signed Report COMPREHENSIVE METABOLIC [id number] 13:42:00* Test Item Value Reference Range Interpretation [...] TOTAL (test code = ALKP) IUnit/L 45-117 [id number] 11:52:00* Test Item Value Reference Range Interpretation Comments GLUBED (test code = GLUBED) 84 mg/dL 74-106 N Performed by certified winchman/crane operator at [facility] [id number] 08:26:00* Test Item Value Reference Range Interpretation Comments GLUBED (test code = GLUBED) 86 mg/dL 74-106 N Performed by certified winchman/crane operator at [facility] SERUM [id number] 06:34:00* Test Item Value Reference Range Interpretation Comments SERUM IRON (test code = IRON) 36 ug/dL 50-175 L [id number] 05:13:00* Test Item Value Reference Range Interpretation Comments PHOSPHORUS (test code = PHOS) 2.0 mg/dL 2.5-4.9 L [id number] 05:13:00* Test Item Value Reference Range Interpretation Comments MAGNESIUM (test code = MAG) 2.0 mg/dL 1.8-2.4 N [id number] 05:09:00* Test Item Value Reference Range Interpretation Comments PHOSPHORUS (test code = PHOS) mg/dL 2.5-4.9 [id number] 05:09:00* Test Item Value Reference Range Interpretation Comments MAGNESIUM (test code = MAG) 2.0 mg/dL 1.8-2.4 N URINALYSIS [id number] 21:21:00* Test Item Value Reference Range Interpretation [...] FEW #/LPF FEW Urine Source? Clean CatchUR NA,[id number] 21:21:00* Test Item Value Reference Range Interpretation Comments UR NA,RANDOM (test code = ROMY) 31 mmol/L 20-110 N Urine Source? Clean CatchUR CREATININE [id number] 21:21:00* Test Item Value Reference Range Interpretation Comments UR CREATININE RANDOM (test code = CREATU) 142.0 mg/dL 30-125 H Urine Source? Clean [id number] 21:15:00* Test Item Value Reference Range Interpretation Comments GLUBED (test code = GLUBED) 89 mg/dL 74-106 N Performed by certified winchman/crane operator at [facility] URINALYSIS [id number] 21:13:00* Test Item Value Reference Range Interpretation [...] FEW #/LPF FEW Urine Source? Clean CatchUR NA,[id number] 21:13:00* Test Item Value Reference Range Interpretation Comments UR NA,RANDOM (test code = ROMY) 31 mmol/L 20-110 N Urine Source? Clean [facility]atch[facility] CREATININE [id number] 21:13:00* Test Item Value Reference Range Interpretation Comments UR CREATININE RANDOM (test code = CREATU) mg/dL 30-125 Urine Source? Clean CatchURINALYSIS [id number] 21:11:00* Test Item Value Reference Range Interpretation [...] FEW #/LPF FEW Urine Source? Clean CatchUR NA,[id number] 21:11:00* Test Item Value Reference Range Interpretation Comments UR NA,RANDOM (test code = ROMY) mmol/L 20-110 Urine Source? Clean CatchUR CREATININE [id number] 21:11:00* Test Item Value Reference Range Interpretation Comments UR CREATININE RANDOM (test code = CREATU) mg/dL 30-125 Urine Source? Clean Catch- CT ABD PELVIS [id number] 20:27:00 Name: [place] [facility] : 1960 Age/S: 58 / M [address] [facility] Unit #: [id number] Loc: [place] [address] Phys: Jose Mcdonough MD Acct: [id number] Di s Date: Status: ADM IN PHONE #: Exam Date: 09/06/20192011 FAX #: Reason: abdominal distention EXAMS: CPT CODE: [id number] CT ABD PELVIS W/CONT 15043 REASON FOR EXAM: abdominal distention EXAM ORDER DATE: 09/06/2019 11:53 AM Ordering: Edis Mcdonough MD Attending:Sammy Lopez MD Locatio n:[facility] PROCEDURE: - CT ABD PELVIS W/CONT COMPARISON: [...] 1 Signed Report (CONTINUED) Name: [place] [facility] : 1960 Age/S: 58 / M [address] Unit #: [id number] Loc: [place] [address] Phys: Edis Mcdonough MD Acct: [id number] Dis Date: Status: ADM IN PHONE #: [phone] Exam Date: 09/06/20192011 FAX #: [phone] Reason: abdominal distention EXAMS: CPT CODE: [id number] ABD PELVIS W/CONT 16373 < Continued> at 2026 Reported and signed by: Prince Eddy M.D. CC: Sammy Lopez MD Technologist:NIMISHA REID, RT(R) CT CTDI: DLP: Trnscb Date/Time: 09/06/2019 (2026) t.RENITAR.VTL Orig Print D/T: S: 09/06/2019 (2029) PAGE 2 Signed Report [id number] 15:42:00* Test Item Value Reference Range Interpretation Comments GLUBED (test code = GLUBED) 94 mg/dL 74-106 N Performed by certified winchman/crane operator at [facility] [id number] 15:42:00* Test Item Value Reference Range Interpretation Comments GLUBED (test code = GLUBED) 135 mg/dL 74-106 H Performed by certified winchman/crane operator at [facility] [id number] 14:07:00* Test Item Value Reference Range Interpretation Comments PHOSPHORUS (test code = PHOS) 4.0 mg/dL 2.5-4.9 N [id number] 14:07:00* Test Item Value Reference Range Interpretation Comments MAGNESIUM (test code = MAG) 2.1 mg/dL 1.8-2.4 N [id number] 10:31:00* Test Item Value Reference Range Interpretation Comments GLUBED (test code = GLUBED) 97 mg/dL 74-106 N Performed by certified winchman/crane operator at [facility] BASIC METABOLIC [id number] 05:25:00* Test Item Value Reference Range Interpretation [...] CA) 8.8 mg/dL 8.5-10.1 N BASIC METABOLIC [id number] 05:13:00* Test Item Value Reference Range Interpretation [...] code = CA) mg/dL 8.5-10.1 CBC W/AUTO [id number] 04:58:00* Test Item Value Reference Range Interpretation [...] code = NRBC#) 0.00 K/mm3 0.0-0.1 N [id number] 21:51:00* Test Item Value Reference Range Interpretation Comments GLUBED (test code = GLUBED) 95 mg/dL 74-106 N Performed by certified winchman/crane operator at [facility] [id number] 17:26:00* Test Item Value Reference Range Interpretation Comments GLUBED (test code = GLUBED) 106 mg/dL 74-106 N Performed by certified winchman/crane operator at [facility] [id number] 17:26:00* Test Item Value Reference Range Interpretation Comments GLUBED (test code = GLUBED) 100 mg/dL 74-106 N Performed by certified winchman/crane operator at [facility] TOTAL IRON BINDING [id number] 15:01:00* Test Item Value Reference Range Interpretation Comments TOTAL IRON BINDING CAPACITY (test code = TIBC) 245 mcg/dL 250-450 L VITAMIN [id number] 15:01:00* Test Item Value Reference Range Interpretation Comments VITAMIN B12 (test code = VITB12) 281 pg/mL 193-986 N FOLIC [id number] 15:01:00* Test Item Value Reference Range Interpretation Comments FOLIC ACID (test code = FOL) 3.3 ng/mL 3.10-17.50 N RETICULOCYTE [id number] 13:17:00* Test Item Value Reference Range Interpretation [...] therefore, decreasedRET-He is indicative of iron deficiency. [id number] 08:51:00* Test Item Value Reference Range Interpretation Comments GLUBED (test code = GLUBED) 95 mg/dL 74-106 N Performed by certified winchman/crane operator at [facility] BASIC METABOLIC [id number] 06:52:00* Test Item Value Reference Range Interpretation Comments SODIUM (test code = NA) 143 mmol/L 136-145 N POTASSIUM (test code = K) 2.8 mmol/L 3.5-5.1 LL Re sults called to [id number] by V.LAB.GP 09/05/19 0651Critical results verified and [...] CA) 8.6 mg/dL 8.5-10.1 N CBC W/AUTO [id number] 05:58:00* Test Item Value Reference Range Interpretation [...] code = NRBC#) 0.00 K/mm3 0.0-0.1 N [id number] 22:38:00* Test Item Value Reference Range Interpretation Comments GLUBED (test code = GLUBED) 93 mg/dL 74-106 N Performed by certified winchman/crane operator at [facility] [id number] 16:36:00* Test Item Value Reference Range Interpretation Comments GLUBED (test code = GLUBED) 90 mg/dL 74-106 N Performed by certified winchman/crane operator at [facility] [id number] 13:37:00* Test Item Value Reference Range Interpretation Comments GLUBED (test code = GLUBED) 96 mg/dL 74-106 N Performed by certified winchman/crane operator at [facility] [id number] 07:33:00* Test Item Value Reference Range Interpretation Comments GLUBED (test code = GLUBED) 81 mg/dL 74-106 N Performed by certified winchman/crane operator at [facility] BASIC METABOLIC [id number] 05:50:00* Test Item Value Reference Range Interpretation Comments SODIUM (test code = NA) 143 mmol/L 136-145 N POTASSIUM (test code = K) 2.9 mmol/L 3.5-5.1 L Re sults called to [id number] by V.YOSHI 09/04/19 0550Critical results verified and read back [...] code = CA) 8.2 mg/dL 8.5-10.1 L [id number] 20:04:00* Test Item Value Reference Range Interpretation Comments GLUBED (test code = GLUBED) 91 mg/dL 74-106 N Performed by certified winchman/crane operator at [facility] [id number] 15:50:00* Test Item Value Reference Range Interpretation Comments GLUBED (test code = GLUBED) 94 mg/dL 74-106 N Performed by certified winchman/crane operator at [facility] [id number] 11:36:00* Test Item Value Reference Range Interpretation Comments GLUBED (test code = GLUBED) 111 mg/dL 74-106 H Performed by certified winchman/crane operator at [facility] [id number] 08:14:00* Test Item Value Reference Range Interpretation Comments GLUBED (test code = GLUBED) 88 mg/dL 74-106 N Performed by certified winchman/crane operator at [facility] BASIC METABOLIC [id number] 05:34:00* Test Item Value Reference Range Interpretation [...] CA) 8.2 mg/dL 8.5-10.1 L BASIC METABOLIC [id number] 05:30:00* Test Item Value Reference Range Interpretation [...] CALCIUM (test code = CA) mg/dL 8.5-10.1 [id number] 21:32:00* Test Item Value Reference Range Interpretation Comments MAGNESIUM (test code = MAG) 1.8 mg/dL 1.8-2.4 N SPECIMEN COMMENTS: add on 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 Y - XR ABDOMEN AP 1 [id number] 19:36:00 FAX: Sammy Mccain MD [place]: B St: ADM FAX: Carole Cervantes NP [phone] Name: [place] [facility] : 1960 Age/S: 58/M [address] Unit #: [id number] Loc: [place] [address] Phys: Carole Deutsch BEHAVIORAL PEDIATRICIAN Acct: [id number] Dis Date: Status: ADM IN PHONE #: [phone] Exam Date: 09/02/2019 190 FAX #: [phone] Reason: distention EXAMS: CPT CODE: [id number] XR ABDOMEN AP 1 V 04220 HISTORY: distention TECHNIQUE: AP abdomen x-ray COMPARISON: [...] Technologist: ARNOL TEE, RT(R); NURYS JAEGER RT(R) Trnscrd Date/Time/By: (1935) : By: MartinRR31 Orig Print D/T: S: 09/02/2019 (1939) PAGE 1 Signed Report BASIC METABOLIC [id number] 11:02:00* Test Item Value Reference Range Interpretation Comments SODIUM (test code = NA) 144 mmol/L 136-145 N POTASSIUM (test code = K) 2.6 mmol/L 3.5-5.1 Re sults called to [id number] by V.LAB.WJC 09/02/19 1101Critical results verified and read back [...] CA) 8.3 mg/dL 8.5-10.1 L THYROID PROFILE [id number] 10:53:00* Test Item Value Reference Range Interpretation [...] HYPER : < 0.35 mIU/mL BASIC METABOLIC [id number] 20:56:00* Test Item Value Reference Range Interpretation Comments SODIUM (test code = NA) 142 mmol/L 136-145 N POTASSIUM (test code = K) 2.3 mmol/L 3.5-5.1 LL Re sults called to [id number] by [employer].GA 09/01/19 2053Critical results verified and read back by Nurse? [...] = CA) 8.7 mg/dL 8.5-10.1 N URINALYSIS [id number] 16:32:00* Test Item Value Reference Range Interpretation [...] Urine Source? Clean CatchDRUGS OF ABUSE SCREEN [id number] 16:32:00* Test Item Value Reference Range Interpretation [...] NEGATIVE <300 ng/mL Urine Source? Clean CatchURINALYSIS [id number] 16:21:00* Test Item Value Reference Range Interpretation [...] Urine Source? Clean CatchDRUGS OF ABUSE SCREEN [id number] 16:21:00* Test Item Value Reference Range Interpretation [...] = [place]) <300 ng/mL Urine Source? Clean [id number] 15:25:00* Test Item Value Reference Range Interpretation Comments MAGNESIUM (test code = MAG) 1.9 mg/dL 1.8-2.4 N BASIC METABOLIC [id number] 15:18:00* Test Item Value Reference Range Interpretation Comments SODIUM (test code = NA) 143 mmol/L 136-145 N POTASSIUM (test code = K) 2.4 mmol/L 3.5-5.1 Re sults called to [id number] by [employer].HI 09/01/19 1516Critical results verified and read back [...] CA) 8.7 mg/dL 8.5-10.1 N HEPATIC FUNCTION [id number] 15:18:00* Test Item Value Reference Range Interpretation [...] reference range due to change in reagent. [id number] 15:18:00* Test Item Value Reference Range Interpretation [...] ANADDITIONAL CHARGE TO THE PATIENT. CBC W/O [id number] 14:54:00* Test Item Value Reference Range Interpretation [...] 6.7-11.0 N - XR ABDOMEN AP 1 [id number] 08:49:00 FAX: Sammy Mccain MD [place]: B St: ADM Name: [place] [facility] : [birth year] Age/S: 58/M [address] [facility] Unit #: [id number] Loc: V.3033 [place] [address] Phys: Sammy Lopez MD Acct: [id number] Dis Date: Status: ADM IN PHONE #: [phone] Exam Date: 08/04/2019809 FAX #: [phone] Reason: distention EXAMS: CPT CODE: [id number] XR ABDOMEN AP 1 V 31430 HISTORY: distention TECHNIQUE: AP abdomen x-ray COMPARISON: Abdominal radiographs M 2019 as well as multiple abdominal radiographs dating back to July 27, 2019 FINDINGS/ IMPRESSION: There is persiste nt gaseous distention of both the small and large bowel that is unchange d from the previous examination. This may represent ileus vers us [place] syndrome. Remaining findings are unchanged. Location: [facility] at 0849 Reported and signed by: Lico Garcia MD CC: Sammy Lopez MD Technologist: ALYSSA CRENSHAW, RT(R); ERICA ROWLAND JR Trnhir d Date/Time/By: 08/04/2019 (0849) : By: [email or web address] Orig Print D/T: S: 0 08/04/2019 (4396) PAGE 1 Signed Re port BASIC METABOLIC [id number] 06:26:00* Test Item Value Reference Range Interpretation [...] CA) 8.7 mg/dL 8.5-10.1 N BASIC METABOLIC [id number] 06:14:00* Test Item Value Reference Range Interpretation [...] code = CA) mg/dL 8.5-10.1 BASIC METABOLIC [id number] 06:37:00* Test Item Value Reference Range Interpretation [...] 8.5-10.1 L - XR ABDOMEN AP 1 [id number] 11:52:00 FAX: Sammy Mccain MD [place]: St: ADM Name: [place] [facility] : [birth year] Age/S: 58/M [address] [facility] Unit #: [id number] Loc: V.3033 [place] [address] Phys: Sammy Lopez MD Acct: [id number] Dis Date: Status: ADM IN PHONE #: [phone] Exam Date: 08/02/2019 1152 FAX #: [phone] Reason: distention EXAMS: CPT CODE: [id number] XR ABDOMEN AP 1 V 35701 HISTORY: distention TECHNIQUE: AP abdomen x-ray COMPARISON: Abdominal radiographs y . Additional radiographs dating back to July 29, 2019 were reviewed FINDINGS/ IMPRESSION: Diffuse gaseous distention of both the small and large bowel appears unchanged from the prior exam and likely represents small bowel ileus. Remaining findings are unchanged. Location: [facility] Electronical ly Signed by Lico Garcia MD on 08/02/2019 at 1152 Report ed and signed by: Lico Garcia MD CC: Sammy Lopez MD Technologist: RT Tino(R) Trnhird Date/Time/By: 08/02/2019 (1319) : By: [email or web address] 1 Orig Print D/T: S: 08/02/2019 (2460) PAGE 1 Signed Report BASIC METABOLIC [id number] 05:28:00* Test Item Value Reference Range Interpretation [...] code = CA) 8.6 mg/dL 8.5-10.1 N [id number] 05:28:00* Test Item Value Reference Range Interpretation Comments MAGNESIUM (test code = MAG) 2.3 mg/dL 1.8-2.4 N - XR ABDOMEN AP 1 [id number] 10:16:00 FAX: Sammy Mccain MD [place]: B St: ADM Name: [place] [facility] : [birth year] 57 Age/S: 58/M [address] [facility] Unit #: [id number] Loc: B[address]u.[address] [place] [address] Phys: Sammy Lopez MD Acct: [id number] Dis Date: Status: ADM IN PHONE #: [phone] Exam Date: 08/01/2019 0900 FAX #: [phone] Reason: distention EXAMS: CPT CODE: [id number] XR ABDOMEN AP 1 V 55347 HISTORY: distention TECHNIQUE: AP abdomen x-ray COMPARISON: Abdominal radiographs [facility] 2019 FINDINGS/ IMPRESSION: Extensive gaseo us distention of the small and large bowel appears unchanged from the pr ior exam. Scoliosis and degenerative changes of the lumbar spine are als o unchanged. Location: [facility] at 1016 Reported and sig veronica by: Lico Garcia MD CC: Sammy Lopez MD Technologist: RT KENYA(R) Trnscrd Date/Time/By: 08/01/2019 (1016) : By: [email or web address] Orig Print D/T: S: 08/01/2019 (1020) PAGE 1 Signed Report BASIC METABOLIC PANEL [...] CA) 8.7 mg/dL 8.5-10.1 N BASIC METABOLIC [id number] 05:41:00* Test Item Value Reference Range Interpretation [...] code = CA) mg/dL 8.5-10.1 BASIC METABOLIC [id number] 07:33:00* Test Item Value Reference Range Interpretation [...] CA) 8.6 mg/dL 8.5-10.1 N CBC W/AUTO [id number] 06:32:00* Test Item Value Reference Range Interpretation [...] code = MDIFF) NO - XR ABDOMEN [id number] 17:29:00 FAX: Farhad Bhakta MD [phone] [place]: St: ADM FAX: Sammy Mccain MD Name: [place] [facility] : 1960 Age/S: 58/M [address] [facility] Unit #: [id number] Loc: [address] [address] Phys: Farhad Peña MD Acct: [id number] Dis Date: Status: ADM IN PHONE #: [phone] Exam Date: 07/30/2019 1710 FAX #: [phone] Reason: ABD DISTENSION EXAMS: CPT CODE: [id number] XR ABDOMEN 2V 83645 EXAM: Abdomen, 5 views; INFORMATION: Abdominal dis [...] CORETTA JAEGER RT(R); ... Trnscrd Date/Time/By: 07/30/2019 (1729) : By: Renato DOWELL Orig Print D/T: S: 07/30/2019 (1732) PAG E 1 Signed Report BASIC METABOLIC [id number] 05:37:00* Test Item Value Reference Range Interpretation [...] code = CA) 8.7 mg/dL 8.5-10.1 N [id number] 05:37:00* Test Item Value Reference Range Interpretation Comments MAGNESIUM (test code = MAG) 2.7 mg/dL 1.8-2.4 H CBC W/AUTO [id number] 04:46:00* Test Item Value Reference Range Interpretation [...] (test code = MDIFF) NO BASIC METABOLIC [id number] 19:46:00* Test Item Value Reference Range Interpretation [...] CA) 8.4 mg/dL 8.5-10.1 L BASIC METABOLIC [id number] 19:42:00* Test Item Value Reference Range Interpretation [...] CALCIUM (test code = CA) mg/dL 8.5-10.1 [id number] 14:09:00* Test Item Value Reference Range Interpretation Comments POTASSIUM (test code = K) 3.2 mmol/L 3.5-5.1 L - XR ABDOMEN [id number] 13:28:00 FAX: Farhad Bhakta MD [phone] [place]: B St: [facility] FAX: Sammy Mccain MD Name: [place] [facility] : 1960 Age/S: 58/M [address] Unit #: [id number] Loc: [address] [place] [address] Phys: Farhad Peña MD Acct: [id number] Dis Date: Status: ADM IN PHONE #: [phone] Exam Date: 07/29/2019 1250 FAX #: [phone] Reason: ABD DISTENSION EXAMS: CPT CODE: [id number] XR ABDOMEN 2V 50901 EXAM: Abdomen, 5 views; INFORMATION: Abdominal dis tention; UTI, hypokalemia; IMPRESSION: No significant ch zulema compared with yesterday's study; persistent gaseous distention and mild dilatation of colon and small bowel loops consistent with ileus; ob struction is unlikely. Location code: [facility] Electronically Signed by Brandon Hawley on at 1328 Reported and signed by: Ned Hawley M.D. CC: Farhad Peña MD; Alvarado Lopez MD Technologist: Judith CHACKO(R); Carol Aquino(R) Trnscrd Date/Time/By: 07/29/2019 (8588) : By: MartinGRW Orig Print D/T: S: 07/29/2019 (5221) PAGE 1 Signed Report [id number] 13:15:00* Test Item Value Reference Range Interpretation Comments GLUBED (test code = GLUBED) 96 mg/dL 74-106 N Performed by certified winchman/crane operator at [facility] BASIC METABOLIC [id number] 05:06:00* Test Item Value Reference Range Interpretation [...] CA) 8.7 mg/dL 8.5-10.1 N BASIC METABOLIC [id number] 21:56:00* Test Item Value Reference Range Interpretation [...] code = CA) 8.7 mg/dL 8.5-10.1 N [id number] 21:56:00* Test Item Value Reference Range Interpretation Comments MAGNESIUM (test code = MAG) 2.3 mg/dL 1.8-2.4 N BASIC METABOLIC [id number] 21:55:00* Test Item Value Reference Range Interpretation [...] CALCIUM (test code = CA) mg/dL 8.5-10.1 [id number] 21:55:00* Test Item Value Reference Range Interpretation Comments MAGNESIUM (test code = MAG) mg/dL 1.8-2.4 - XR ABDOMEN AP 1 [id number] 10:04:00 FAX: Farhad Bhakta MD [phone] [place]: St: ADM FAX: Sammy Mccain MD Name: [place] [facility] : 1960 Age/S: 58/M [address] [facility] Unit #: [id number] Loc: V.3033 [place] [address] Phys: Farhad Peña MD Acct: [id number] Dis Date: Status: ADM IN PHONE #: [phone] Exam Date: 07/28/2019924 FAX #: [phone] Reason: ABDOMINAL DISTENTION Report Has Been Amended EXAMS: CPT CODE: [id number] XR ABDOMEN AP 1 V 14732 Addendum - 07/28/2019 SIGNED 07/28/2019 ADD ENDUM: [id number] RAD/RDLUW8T Enteric suction tube terminates in the stoma ch. at 1004 Reported and signed by: Lico Garcia MD Transcribed: 07/28/2019 (9864) [email or web address] Report HISTORY: ABDOMIN AL DISTENTION TECHNIQUE: AP abdomen x-ray COMPARISO N: Abdominal radiographs July 27, 2019 FINDINGS/ IMPRESS ION: Diffuse gaseous distention of both the small and large bowel appear grossly unchanged from the prior examination and likely rep resent ileus. Location: [facility] at 0938 Reported and signed by: Lico Garcia MD CC: Farhad Peña MD; Sammy Lopez MD Technologist: RT ERIC(R); Brinda Retana (R) Trnscrd Date/Time/By: 07/28/2019 (5392) : By: [email or web address] Orig Print D/T: S: 07/28/2019 (2593) PAGE 1 Signed Report - XR ABDOMEN AP 1 [id number] 09:38:00 FAX: Farhad Bhakta MD [phone] [place]: St: [facility] FAX: Sammy Mccain MD Name: [place] [facility] : 1960 Age/S: 58/M [address] [facility] Unit #: [id number] Loc: V.[facility] [place] [address] Phys: Farhad Peña MD Acct: [id number] Dis Date: Status: ADM IN PHONE #: [phone] Exam Date: 07/28/2019924 FAX #: [phone] Reason: ABDOMINAL DISTENTION EXAMS: CPT CODE: [id number] XR ABDOMEN AP 1 V 67272 HISTORY: ABDOMINAL DISTENTION TECHNIQUE: AP abdomen x-ray COMPARISON: Abdominal radiographs July 27, 2019 FINDINGS/ IMPRESSION: Diffuse gaseous distention of both the small and large bowel appear grossly unchanged from the prior examination and likely represent ileus. Location: [facility] at 0938 Reported and signed by: Lico Garcia MD CC: Farhad Peña MD; Sammy Lopez MD Technologist: RT ERIC(R); Brinda Retana(R) Trnscrd Date/Time/By: 0 07/28/2019 (937) : By: [email or web address] Orig Print D/T: S: 07/28/2019 (4092) PAGE 1 Signed Report BASIC METABOLIC [id number] 06:41:00* Test Item Value Reference Range Interpretation [...] code = CA) 8.6 mg/dL 8.5-10.1 N [id number] 06:41:00* Test Item Value Reference Range Interpretation Comments MAGNESIUM (test code = MAG) 2.0 mg/dL 1.8-2.4 N THYROID STIMULATING [id number] 06:41:00* Test Item Value Reference Range Interpretation Comments THYROID STIMULATING HORMONE (test code = TSH) 1.300 uIU/mL 0.36-3.7 4 N TSH REFERENCE RANGES: EUTHYROID: 0.35 - 4.3 mIU/mL HYPO : > 5.5 mIU/mL HYPER : < 0.35 mIU/mL BASIC METABOLIC [id number] 06:33:00* Test Item Value Reference Range Interpretation [...] CALCIUM (test code = CA) mg/dL 8.5-10.1 [id number] 06:33:00* Test Item Value Reference Range Interpretation Comments MAGNESIUM (test code = MAG) mg/dL 1.8-2.4 THYROID STIMULATING [id number] 06:33:00* Test Item Value Reference Range Interpretation Comments THYROID STIMULATING HORMONE (test code = TSH) uIU/mL 0.36-3.7 4 PROTHROMBIN [id number] 06:00:00* Test Item Value Reference Range Interpretation [...] (2.5-3.5) IS PATIENT ON ANTICOAGULANTS? NTHROMBOPLASTIN TIME [id number] 06:00:00* Test Item Value Reference Range Interpretation Comments THROMBOPLASTIN TIME PARTIAL (test code = PTT) 34.6 seconds 23.0-37. 0 N IS PATIENT ON ANTICOAGULANTS? [id number] 05:57:00* Test Item Value Reference Range Interpretation Comments GLYCOSYLATED HEMOGLOBIN (HA1C) (test code = GLYHGB) 5.4 % HbA1 SUGGESTED DIAGNOSIS: HbA1C (%) Diabetic >6.4Prediabetes 5.7 - 6.4Normal <5.7 ESTIMATED AVERAGE GLUCOSE (test code = EAG) 108 MG/DL CBC W/AUTO [id number] 05:46:00* Test Item Value Reference Range Interpretation [...] code = NRBC#) 0.00 K/mm3 0.0-0.1 N [id number] 04:02:00* Test Item Value Reference Range Interpretation Comments POTASSIUM (test code = K) 3.1 mmol/L 3.5-5.1 L [id number] 04:02:00* Test Item Value Reference Range Interpretation Comments MAGNESIUM (test code = MAG) 1.9 mg/dL 1.8-2.4 N [id number] 04:02:00* Test Item Value Reference Range Interpretation Comments AMYLASE (test code = DERIC) 12 Unit/L 25-115 L [id number] 04:02:00* Test Item Value Reference Range Interpretation Comments LIPASE (test code = LIP) 78 U/L 73.0-393.0 N - XR CHEST 1 [id number] 02:13:00 FAX: Farhad Bhakta MD [phone] [place]: St: [facility] FAX: Sammy Mccain MD Name: [place] [facility] : 1960 Age/S: 58/M [address] [facility] Unit #: [id number] Loc: V.[address] [place] [address] Phys: Farhad Peña MD Acct: [id number] Dis Date: Status: ADM IN PHONE #: [phone] Exam Date: 07/28/2019 0153 FAX #: [phone] Reason: NG TUBE PLACEMENT EXAMS: CPT CODE: [id number] XR CHEST 1 V 67956 AFTER HOURS SERVICE ON: 07/28/2019 2:12 AM [...] MD; Sammy Lopez MD Technologist: Landy Mcguire Trnscrd Date/Time/By: 07/28/2019 (0213) : By: [email or web address] Orig Print D /T: S: 07/28/2019 (0216) PAGE 1 S igned Report - CT ABD PELVIS W/O [id number] 20:02:00 Name: [place] [facility] : 1960 Age/S: 58 / M [address] Unit #: [id number] Loc: [place] [address] Phys: Sammy Lopez MD Acct: [id number] Dis Date: Status: ADM IN PHONE #: [phone] Exam Date: 07/27/2019 1950 FAX #: [phone] Reason: abd distention EXAMS: CPT CODE: [id number] CT ABD PELVIS W/O CONT 41423 REASON FOR EXAM: abd distention EXAM ORDER DATE: 07/27/2019 7:05 PM Ordering: Sammy Lopez MD Attending:Sammy Lopez MD Location:[facility] PROCEDURE: - CT ABD PELVIS W/O CONT [...] obstruction. Very small right pleural effusion at 2001 Reported and signed by: Prince Eddy M.D. CC: Sammy Lopez MD Technologist:Shahnaz Cherry RT(R) CTDI: DLP: Trnscb Date/Time: 07/27/2019 (2001) Brandie Orig Print D/T: S: 07/27/2019 (2004) PAGE 1 Signed Report - XR ABDOMEN AP 1 [id number] 12:44:00 FAX: Sammy Mccain MD [place]: B St: ADM [facility] [facility] [birth year] Age/S: 58/M [address] Unit #: [id number] Loc: V.[address] [place] [address] Phys: Sammy Lopez MD Acct: [id number] Dis Date: Status: ADM IN PHONE #: [phone] Exam Date: 07/27/2019 1211 FAX #: [phone] Reason: abd distention EXAMS: CPT CODE: [id number] XR ABDOMEN AP 1 V 41839 HISTORY: abd distention TECHNIQUE: AP abdomen x-ray [...] and large bowel may represent ileus. 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 Clean CatchDRUGS OF ABUSE SCREEN [id number] 05:49:00* Test Item Value Reference Range Interpretation [...] NEGATIVE <300 ng/mL Urine Source? Clean CatchURINALYSIS [id number] 05:31:00* Test Item Value Reference Range Interpretation [...] Urine Source? Clean CatchDRUGS OF ABUSE SCREEN [id number] 05:31:00* Test Item Value Reference Range Interpretation [...] [place]) <300 ng/mL Urine Source? Clean CatchURINALYSIS [id number] 05:27:00* Test Item Value Reference Range Interpretation [...] Urine Source? Clean CatchDRUGS OF ABUSE SCREEN [id number] 05:27:00* Test Item Value Reference Range Interpretation [...] <300 ng/mL Urine Source? Clean CatchBASIC METABOLIC [id number] 00:01:00* Test Item Value Reference Range Interpretation Comments SODIUM (test code = NA) 141 mmol/L 136-145 N POTASSIUM (test code = K) 2.6 mmol/L 3.5-5.1 [facility] called to ROU1036 by V.LAB.AG1 07/27/19 0000Critical results verified and read back [...] CA) 9.0 mg/dL 8.5-10.1 N HEPATIC FUNCTION [id number] 00:01:00* Test Item Value Reference Range Interpretation [...] reference range due to change in reagent. [id number] 00:01:00* Test Item Value Reference Range Interpretation [...] ANADDITIONAL CHARGE TO THE PATIENT. CBC W/O [id number] 23:26:00* Test Item Value Reference Range Interpretation [...] fL 6.7-11.0 N RAD, ABDOMEN/KUB, 1 VIEW [id number] 07:48:00Reason for exam:->ileusFINAL REPORT Abdomen , one [...] significant interval ch zulema. Signed: [place] MDReport Verified Date/Time: 07/11/2019 07:48:35 Reading Location: [facility] Diagnostic Imaging Reading Room - [place] [address] [facility] tronically signed by: PARRISH MEADOWS MD on 07/11/2019 07:48 AM XR abdomen / KUB 1 [id number] 07:48:00Interface, External Ris In - 07/11/2019 7:50 [...] tract. Impression:No significant interval change. Signed: Parrish Meadowsort Verified Date/Time: 07/11/2019 07:48:35 Reading Location: [facility] Diagnostic Imaging Reading Room - [place] [address] [facility] 2019-07-11 05:47:00* Test Item Value Reference Range Interpretation Comments Sodium (test code = 2951-2) 135 meq/L 136-145 L Potassium (test code = 2823-3) 3.8 meq/L 3.5-5.1 Chloride (test code = 2075-0) 104 meq/L 98-107 CO2 (test code = 8-9) 26 meq/L 22-29 BUN (test code = 3094-0) 6 mg/dL 7-21 L Creatinine (test code = 2160-0) 1.01 mg/dL 0.57-1.25 Glucose (test code = 2345-7) 87 mg/dL 70-105 Calcium (test code = 10326-2) 8.4 mg/dL 8.4-10.2 EGFR (test code = 65169-5) 75 mL/min/1.73 sq m ESTIMATED GFR IS NOT ACCURATE CREATININE CLEARANCE IN PREDICTING GLOMERULAR FILTRATION RATE. ESTIMATED GFR IS NOT APPLICABLE FOR DIALYSIS PATIENTS. MAVERICK (test code = MAVERICK) Adult Basic Education Instructor ID - CELESTINA W Lab Interpretation (test code = 42346-2) Abnormal [facility]Magnesium2020-04-14 05:47:00* Test Item Value Reference Range Interpretation Comments Magnesium (test code = 11133-2) 1.6 mg/dL 1.6-2.6 MAVERICK (test code = MAVERICK) Adult Basic Education Instructor ID - CELESTINA W Lab Interpretation (test code = 71045-6) Normal [facility] campusPhosphorus2020-04-14 05:47:00* Test Item Value Reference Range Interpretation Comments Phosphorus (test code = 2777-1) 4.2 mg/dL 2.3-4.7 MAVERICK (test code = MAVERICK) Adult Basic Education Instructor ID - CELESTINA W Lab Interpretation (test code = 87148-1) Normal [facility] campusPHOSPHORUS2020-04-14 05:47:00* Test Item Value Reference Range Interpretation Comments PHOSPHORUS (BEAKER) (test code = 604) 4.2 mg/dL 2.3-4.7 Adult Basic Education Instructor ID Radha OSCAR [id number] 05:47:00* Test Item Value Reference Range Interpretation Comments MAGNESIUM (BEAKER) (test code = 627) 1.6 mg/dL 1.6-2.6 Adult Basic Education Instructor ID Radha OSCAR WBASIC METABOLIC [id number] 05:47:00* Test Item Value Reference Range Interpretation [...] GFR IS NOT APPLICABLE FOR DIALYSIS PATIENTS. Adult Basic Education Instructor ID Radha OSCAR [id number] 05:25:00* Test Item Value Reference Range Interpretation Comments PTT (test code = 07250-1) 41.1 22.5- 36.0 seconds H Lab Interpretation (test code = 75744-3) [facility] 05:25:00* Test Item Value Reference Range Interpretation Comments PARTIAL THROMBOPLASTIN TIME (BEAKER) (test code = 760) 41.1 seconds 22.5-36.0 H Prothrombin time/[id number] 05:24:00* Test Item Value Reference Range Interpretation [...] heart valves. Lab Interpretation (test code = 35232-7) Abnormal [facility]/[id number] 05:24:00* Test Item Value Reference Range Interpretation [...] 450 K/CU MM MPV (test code = 24185-0) 9.2 fL 9.4-12.4 L nRBC (test code = 413) 0 0- 0 /100 WBC Lab Interpretation (test code = 12306-7) Abnormal [facility] (HEMOGRAM ONLY)2019-07-11 05:08:00* Test Item Value Reference [...] = 413) 0 /100 WBC 0 -0 [id number] 19:27:00* Test Item Value Reference Range Interpretation Comments TSH (test code = 82681-3) 1.612 0.350- 4.940 uIU/mL MAVERICK (test code = MAVERICK) Adult Basic Education Instructor ID - BS Lab Interpretation (test code = 39503-0) Normal [facility]TSH2020-04-13 19:27:00* Test Item Value Reference Range Interpretation Comments THYROID STIMULATING HORMONE (BEAKER) (test code = 772) 1.612 uIU /mL 0.350-4.940 Adult Basic Education Instructor ID - BSRAD, ABDOMEN/KUB, 1 VIEW [id number] 07:43:00Reason for exam:-> ileusFINAL REPORT CLINICAL HISTORY: ileus TECHNIQUE: Supine abdomen COMPARISON: 07/09/2019 IMPRESSION: Mild gaseous prominence of large and small bowel is grossly unchanged. Free air and air-fluid levels are not definitively seen, but also cannot be excluded on the supine view. Signed: Mary Juarez MDReport Verified Date/Time: 07/10/2019 07:43:43 Reading Location: [facility] Radiology Reading Room 6920-34-01 05:30:00* Test Item Value Reference Range Interpretation Comments PARTIAL THROMBOPLASTIN TIME (BEAKER) (test code = 760) 43.9 seconds 22.5-36.0 H PROTHROMBIN TIME/[id number] 05:29:00* Test Item Value Reference Range Interpretation [...] 2.5-3.5 for patie nts wiht mechanical heart valves.ZKGPTLUSMO4444-67-71 05:24:00* Test Item Value Reference Range Interpretation Comments PHOSPHORUS (BEAKER) (test code = 604) 3.9 mg/dL 2.3-4.7 Adult Basic Education Instructor ID - RITCHIE [id number] 05:24:00* Test Item Value Reference Range Interpretation Comments MAGNESIUM (BEAKER) (test code = 627) 1.7 mg/dL 1.6-2.6 Adult Basic Education Instructor ID - RITCHIE MBASIC METABOLIC [id number] 05:24:00* Test Item Value Reference Range Interpretation [...] GFR IS NOT APPLICABLE FOR DIALYSIS PATIENTS. Adult Basic Education Instructor ID - RITCHIE [facility] (HEMOGRAM ONLY)2019-07-10 05:11:00* [...] WBC 0 -0 RAD, ABDOMEN/KUB, 1 VIEW [id number] 06:53:00Reason for exam:->following ileus FINAL REPORT CLINICAL HISTORY: Ileus COMPARISON: 07/08/19 FINDINGS: 3 supine images of the abdomen [...] Aguilar MDReport Verified Date/Time: 07/09/2019 0 6:53:04 [id number] 05:28:00* Test Item Value Reference Range Interpretation Comments PHOSPHORUS (BEAKER) (test code = 604) 4.1 mg/dL 2.3-4.7 Adult Basic Education Instructor ID - PIAYA [id number] 05:28:00* Test Item Value Reference Range Interpretation Comments MAGNESIUM (BEAKER) (test code = 627) 1.5 mg/dL 1.6-2.6 L Adult Basic Education Instructor ID - PIAYA LBASIC METABOLIC [id number] 05:28:00* Test Item Value Reference Range Interpretation [...] GFR IS NOT APPLICABLE FOR DIALYSIS PATIENTS. Adult Basic Education Instructor ID - MATHEUS LPROTHROMBIN TIME/[id number] 05:00:00* Test Item Value Reference Range Interpretation [...] 2.5-3.5 for patie nts wiht mechanical heart valves.[id number] 05:00:00* Test Item Value Reference Range Interpretation [...] = 413) 0 /100 WBC 0 -0 [id number] 05:41:00* Test Item Value Reference Range Interpretation Comments PHOSPHORUS (BEAKER) (test code = 604) 4.2 mg/dL 2.3-4.7 Adult Basic Education Instructor ID - RITCHIE [id number] 05:41:00* Test Item Value Reference Range Interpretation Comments MAGNESIUM (BEAKER) (test code = 627) 1.8 mg/dL 1.6-2.6 Adult Basic Education Instructor ID - RITCHIE MBASIC METABOLIC [id number] 05:41:00* Test Item Value Reference Range Interpretation [...] GFR IS NOT APPLICABLE FOR DIALYSIS PATIENTS. Adult Basic Education Instructor ID - RITCHIE [id number] 05:39:00* Test Item Value Reference Range Interpretation Comments PARTIAL THROMBOPLASTIN TIME (BEAKER) (test code = 760) 43.5 seconds 22.5-36.0 H PROTHROMBIN TIME/[id number] 05:38:00* Test Item Value Reference Range Interpretation [...] WBC 0 -0 RAD, ABDOMEN/KUB, 1 VIEW [id number] 04:13:00Reason for exam:->following ileus FINAL REPORT CLINICAL [...] JENNIFER AGUILAR M.D. on 07/08/2019 04:13 AM [id number] 15:10:00 * Test Item Value Reference Range Interpretation Comments Potassium (test code = 2823-3) 4.3 meq/L 3.5-5.1 MAVERICK (test code = MAVERICK) Adult Basic Education Instructor ID - ROSIANG Lab Interpretation (test code = 42159-2) [facility] 15:10:[facility]* Test Item Value Reference Range Interpretation Comments POTASSIUM (BEAKER) (test code = 379) 4.3 meq/L 3.5-5.1 Adult Basic Education Instructor ID - [id number] 15:10:00* Test Item Value Reference Range Interpretation Comments MAGNESIUM (BEAKER) (test code = 627) 1.8 mg/dL 1.6-2.6 Adult Basic Education Instructor ID - [id number] 08:14:00* Test Item Value Reference Range Interpretation Comments PHOSPHORUS (BEAKER) (test code = 604) 4.1 mg/dL 2.3-4.7 Adult Basic Education Instructor ID - [id number] 08:14:00* Test Item Value Reference Range Interpretation Comments MAGNESIUM (BEAKER) (test code = 627) 1.6 mg/dL 1.6-2.6 Adult Basic Education Instructor ID - ROSIANGBASIC METABOLIC [id number] 08:14:00* Test Item Value Reference Range Interpretation [...] GFR IS NOT APPLICABLE FOR DIALYSIS PATIENTS. Adult Basic Education Instructor ID - [id number] 08:07:00* Test Item Value Reference Range Interpretation Comments PARTIAL THROMBOPLASTIN TIME (BEAKER) (test code = 760) 42.6 seconds 22.5-36.0 H PROTHROMBIN TIME/[id number] 08:06:00* Test Item Value Reference Range Interpretation [...] WBC 0 -0 RAD, ABDOMEN/KUB, 1 VIEW [id number] 04:15:00Reason for exam:->following ileus FINAL REPORT CLINICAL [...] Jennifer Aguilar MDReport Verified Date/Time: 07/07/2019 04:15:36 [id number] 06:35:00* Test Item Value Reference Range Interpretation Comments PHOSPHORUS (BEAKER) (test code = 604) 3.8 mg/dL 2.3-4.7 Adult Basic Education Instructor ID - MATHEUS [id number] 06:35:00* Test Item Value Reference Range Interpretation Comments MAGNESIUM (BEAKER) (test code = 627) 1.6 mg/dL 1.6-2.6 Adult Basic Education Instructor ID - MATHEUS LBASIC METABOLIC [id number] 06:35:00* Test Item Value Reference Range Interpretation [...] GFR IS NOT APPLICABLE FOR DIALYSIS PATIENTS. Adult Basic Education Instructor ID - SAULAYA LPROTHROMBIN TIME/[id number] 06:14:00* Test Item Value Reference Range Interpretation [...] 2.5-3.5 for patie nts wiht mechanical heart valves.[id number] 06:14:00* Test Item Value Reference Range Interpretation [...] WBC 0 -0 RAD, ABDOMEN/KUB, 1 VIEW [id number] 04:27:00Reason for exam:->following ileus FINAL REPORT CLINICAL [...] air. Signed: Jennifer Aguilar MDReport Verified Date/Time: 07/06/2019 04:27:40 [id number] 17:47:00* Test Item Value Reference Range Interpretation Comments POTASSIUM (BEAKER) (test code = 379) 3.8 meq/L 3.5-5.1 Adult Basic Education Instructor ID - BSRAD, ABDOMEN/KUB, 1 VIEW [id number] 07:56:00Reason for exam:-> Abdominal distensionFINAL REPORT RAD, [...] regional skeleton is unchanged. Signed: Lisseth Loera MDReport Verified Date/Time: 07/05/2019 07:56:19 Reading Location: [facility] Radiology Reading Room [id number] 05:25:00* Test Item Value Reference Range Interpretation Comments PHOSPHORUS (BEAKER) (test code = 604) 3.8 mg/dL 2.3-4.7 Adult Basic Education Instructor ID - RITCHIE [id number] 05:25:00* Test Item Value Reference Range Interpretation Comments MAGNESIUM (BEAKER) (test code = 627) 1.6 mg/dL 1.6-2.6 Adult Basic Education Instructor ID - RITCHIE MBASIC METABOLIC [id number] 05:25:00* Test Item Value Reference Range Interpretation [...] GFR IS NOT APPLICABLE FOR DIALYSIS PATIENTS. Adult Basic Education Instructor ID - RITCHIE [id number] 05:20:00* Test Item Value Reference Range Interpretation Comments PARTIAL THROMBOPLASTIN TIME (BEAKER) (test code = 760) 35.8 seconds 22.5-36.0 PROTHROMBIN TIME/[id number] 05:19:00* Test Item Value Reference Range Interpretation [...] = 413) 0 /100 WBC 0 -0 [id number] 16:31:00* Test Item Value Reference Range Interpretation Comments POTASSIUM (BEAKER) (test code = 379) 3.6 meq/L 3.5-5.1 Adult Basic Education Instructor ID - [id number] 05:33:00* Test Item Value Reference Range Interpretation Comments THYROID STIMULATING HORMONE (BEAKER) (test code = 772) 5.914 uIU /mL 0.350-4.940 H Adult Basic Education Instructor ID - RITCHIE [id number] 05:09:00* Test Item Value Reference Range Interpretation Comments PHOSPHORUS (BEAKER) (test code = 604) 3.8 mg/dL 2.3-4.7 Adult Basic Education Instructor ID - RITCHIE [id number] 05:09:00* Test Item Value Reference Range Interpretation Comments MAGNESIUM (BEAKER) (test code = 627) 1.7 mg/dL 1.6-2.6 Adult Basic Education Instructor ID - RITCHIE MBASIC METABOLIC [id number] 05:09:00* Test Item Value Reference Range Interpretation [...] GFR IS NOT APPLICABLE FOR DIALYSIS PATIENTS. Adult Basic Education Instructor ID - RITCHIE [id number] 05:01:00* Test Item Value Reference Range Interpretation Comments PARTIAL THROMBOPLASTIN TIME (BEAKER) (test code = 760) 39.1 seconds 22.5-36.0 H PROTHROMBIN TIME/[id number] 05:00:00* Test Item Value Reference Range Interpretation [...] = 413) 0 /100 WBC 0 -0 [id number] 16:46:00* Test Item Value Reference Range Interpretation Comments POTASSIUM (BEAKER) (test code = 379) 3.4 meq/L 3.5-5.1 L Adult Basic Education Instructor ID - [id number] 16:46:00* Test Item Value Reference Range Interpretation Comments MAGNESIUM (BEAKER) (test code = 627) 1.4 mg/dL 1.6-2.6 L Adult Basic Education Instructor ID - BSRAD, ABDOMEN/KUB, 1 VIEW [id number] 07:56:00Reason for exam:-> abdominal distensionShould this be [...] MDReport Verified Date/Time: 07/03/19 07:56:09 Reading Location: [facility] Radiology Reading Room Electronic ally signed by: [...] = 413) 0 /100 WBC 0 -0 [id number] 06:19:00* Test Item Value Reference Range Interpretation Comments PHOSPHORUS (BEAKER) (test code = 604) 4.0 mg/dL 2.3-4.7 Adult Basic Education Instructor ID - CELESTINA [id number] 06:19:00* Test Item Value Reference Range Interpretation Comments MAGNESIUM (BEAKER) (test code = 627) 1.6 mg/dL 1.6-2.6 Adult Basic Education Instructor ID - CELESTINA WBASIC METABOLIC [id number] 06:19:00* Test Item Value Reference Range Interpretation [...] GFR IS NOT APPLICABLE FOR DIALYSIS PATIENTS. Adult Basic Education Instructor ID - CELESTINA WPROTHROMBIN TIME/[id number] 06:04:00* Test Item Value Reference Range Interpretation [...] 2.5-3.5 for patie nts wiht mechanical heart valves.[id number] 06:04:00* Test Item Value Reference Range Interpretation Comments PARTIAL THROMBOPLASTIN TIME (BEAKER) (test code = 760) 39.3 seconds 22.5-36.0 H RAD, ABDOMEN/KUB, 1 VIEW [id number] 07:08:00Reason for exam:->abdominal distensionShould this be performed [...] of the lumba r spine. Signed: Melissa Barton Verified Date/Time: 07/02/2019 07:08:14 Re ading Location: [facility] C013Y CT Body Reading Room [id number] 06:35:00* Test Item Value Reference Range Interpretation Comments PARTIAL THROMBOPLASTIN TIME (BEAKER) (test code = 760) 38.3 seconds 22.5-36.0 H PROTHROMBIN TIME/[id number] 06:34:00* Test Item Value Reference Range Interpretation [...] 2.5-3.5 for patie nts wiht mechanical heart valves.[id number] 06:07:00* Test Item Value Reference Range Interpretation Comments PHOSPHORUS (BEAKER) (test code = 604) 3.7 mg/dL 2.3-4.7 Adult Basic Education Instructor ID - MATHEUS [id number] 06:07:00* Test Item Value Reference Range Interpretation Comments MAGNESIUM (BEAKER) (test code = 627) 1.6 mg/dL 1.6-2.6 Adult Basic Education Instructor ID - MATHEUS LBASIC METABOLIC [id number] 06:07:00* Test Item Value Reference Range Interpretation [...] GFR IS NOT APPLICABLE FOR DIALYSIS PATIENTS. Adult Basic Education Instructor ID Radha JARVIS LCBC (HEMOGRAM ONLY)2019-07-02 05:34:00* Test Item Value [...] WBC 0 -0 RAD, ABDOMEN/KUB, 1 VIEW [id number] 07:26:00Reason for exam:->abdominalShould this be performed at [...] lung bases appear clear. Signed: Edis Hale MDReport Verified Date/Time: 07/01/2019 07:26:58 Reading Location: [address] Transitional Reading Room PHORUS 2019-07-01 05:26:00* Test Item Value Reference Range Interpretation Comments PHOSPHORUS (BEAKER) (test code = 604) 3.3 mg/dL 2.3-4.7 Adult Basic Education Instructor ID - PIAYA [id number] 05:26:00* Test Item Value Reference Range Interpretation Comments MAGNESIUM (BEAKER) (test code = 627) 1.9 mg/dL 1.6-2.6 Adult Basic Education Instructor CARLO JARVIS LBASIC METABOLIC [id number] 05:26:00* Test Item Value Reference Range Interpretation [...] GFR IS NOT APPLICABLE FOR DIALYSIS PATIENTS. Adult Basic Education Instructor ID Radha JARVIS [id number] 05:19:00* Test Item Value Reference Range Interpretation Comments PARTIAL THROMBOPLASTIN TIME (BEAKER) (test code = 760) 37.5 seconds 22.5-36.0 H PROTHROMBIN TIME/[id number] 05:18:00* Test Item Value Reference Range Interpretation [...] = 413) 0 /100 WBC 0 -0 [id number] 17:58:00* Test Item Value Reference Range Interpretation Comments POTASSIUM (BEAKER) (test code = 379) 3.5 meq/L 3.5-5.1 Adult Basic Education Instructor ID - RITCHIE [id number] 17:58:00* Test Item Value Reference Range Interpretation Comments MAGNESIUM (BEAKER) (test code = 627) 2.0 mg/dL 1.6-2.6 Adult Basic Education Instructor ID - RITCHIE MRAD, ABDOMEN/KUB, 1 VIEW [id number] 09:23:00Reason for exam:->monitor abdominal distensionShould this be [...] regional skeleto n is intact. Signed: JR Teetee, Nimisha Manzo Verified Date/Time: 05/2019 09:23:50 [facility] Electr onically signed by: NIMISHA KINGSLEY on 06/30/2019 09:23 AM [id number] 05:28:00* Test Item Value Reference Range Interpretation Comments PARTIAL THROMBOPLASTIN TIME (BEAKER) (test code = 760) 38.8 seconds 22.5-36.0 H PROTHROMBIN TIME/[id number] 05:26:00* Test Item Value Reference Range Interpretation [...] 2.5-3.5 for patie nts wiht mechanical heart valves.[id number] 05:16:00* Test Item Value Reference Range Interpretation Comments PHOSPHORUS (BEAKER) (test code = 604) 3.2 mg/dL 2.3-4.7 Adult Basic Education Instructor ID - RITCHIE [id number] 05:16:00* Test Item Value Reference Range Interpretation Comments MAGNESIUM (BEAKER) (test code = 627) 1.8 mg/dL 1.6-2.6 Adult Basic Education Instructor ID - RITCHIE MBASIC METABOLIC [id number] 05:16:00* Test Item Value Reference Range Interpretation [...] GFR IS NOT APPLICABLE FOR DIALYSIS PATIENTS. Adult Basic Education Instructor CARLO DUGAN [facility] [place]2019-06-30 04:49:00* Test Item Value Reference [...] = 413) 0 /100 WBC 0 -0 [id number] 13:36:00* Test Item Value Reference Range Interpretation Comments POTASSIUM (BEAKER) (test code = 379) 3.6 meq/L 3.5-5.1 Adult Basic Education Instructor CARLO HUERTASTT2020-04-02 05:54:00* Test Item Value Reference Range Interpretation Comments PARTIAL THROMBOPLASTIN TIME (BEAKER) (test code = 760) 37.7 seconds 22.5-36.0 H [id number] 05:53:00* Test Item Value Reference Range Interpretation Comments PHOSPHORUS (BEAKER) (test code = 604) 3.6 mg/dL 2.3-4.7 Adult Basic Education Instructor ID - MATHEUS [id number] 05:53:00* Test Item Value Reference Range Interpretation Comments MAGNESIUM (BEAKER) (test code = 627) 1.6 mg/dL 1.6-2.6 Adult Basic Education Instructor ID - MATHEUS LBASIC METABOLIC [id number] 05:53:00* Test Item Value Reference Range Interpretation [...] GFR IS NOT APPLICABLE FOR DIALYSIS PATIENTS. Adult Basic Education Instructor ID - MATHEUS LPROTHROMBIN TIME/[id number] 05:53:00* Test Item Value Reference Range Interpretation [...] 413) 0 /100 WBC 0 -0 CT, [id number] 01:31:00WITH ORAL CONTRASTFINAL REPORT CLINICAL HISTORY: Ileus [...] ed every 2 years. Signed: Jennifer Aguilar MDReport Verified Date/Time: 0 01:31:48 01 :[address] abdomen/pelvis without iv [id number] 01:31:00Interface, External Ris In - 06/29/2019 1:34 [...] recommended every 2 years. Signed: Jennifer Bates Verified Date/Time: 06/29/2019 01:31:48 Electronica lly signed by: JENNIFER AGUILAR M.D. on 06/29/2019 01:31 AM [facility] 22:41:00* Test Item Value Reference Range Interpretation Comments POTASSIUM (BEAKER) (test code = 379) 3.5 meq/L 3.5-5.1 Adult Basic Education Instructor ID - CHELITA PERAZA, ABDOMEN/KUB, 1 VIEW [id number] 14:02:00Reason for exam:->follow-up IleusFINAL REPORT Abdomen , [...] pelvis, suggesting persistent ileus. Signed: Parrish [place] Verified Date/Time: 06/28/2019 14:02:50 Reading Location: [facility] Diagnostic Imaging Reading Room - [place] [address] [place] 2019-06-28 06:02:00* Test Item Value Reference Range Interpretation Comments PHOSPHORUS (BEAKER) (test code = 604) 4.2 mg/dL 2.3-4.7 Adult Basic Education Instructor ID - [id number] 06:02:00* Test Item Value Reference Range Interpretation Comments MAGNESIUM (BEAKER) (test code = 627) 1.7 mg/dL 1.6-2.6 Adult Basic Education Instructor ID - LMBASIC METABOLIC [id number] 06:02:00* Test Item Value Reference Range Interpretation [...] GFR IS NOT APPLICABLE FOR DIALYSIS PATIENTS. Adult Basic Education Instructor ID - LMPROTHROMBIN TIME/[id number] 06:00:00* Test Item Value Reference Range Interpretation [...] 2.5-3.5 for patie nts wiht mechanical heart valves.[id number] 06:00:00* Test Item Value Reference Range Interpretation [...] = 413) 0 /100 WBC 0 -0 [id number] 05:38:00* Test Item Value Reference Range Interpretation Comments THYROID STIMULATING HORMONE (BEAKER) (test code = 772) 19.60 uIU/mL 0.35-4.94 H Adult Basic Education Instructor ID - RITCHIE [id number] 05:35:00* Test Item Value Reference Range Interpretation Comments PHOSPHORUS (BEAKER) (test code = 604) 3.9 mg/dL 2.3-4.7 Adult Basic Education Instructor ID - RITCHIE [id number] 05:35:00* Test Item Value Reference Range Interpretation Comments MAGNESIUM (BEAKER) (test code = 627) 1.8 mg/dL 1.6-2.6 Adult Basic Education Instructor CARLO DUGAN MBASIC METABOLIC [id number] 05:35:00* Test Item Value Reference Range Interpretation [...] GFR IS NOT APPLICABLE FOR DIALYSIS PATIENTS. Adult Basic Education Instructor CARLO DUGAN MPROTHROMBIN TIME/[id number] 04:53:00* Test Item Value Reference Range Interpretation [...] 2.5-3.5 for patie nts wiht mechanical heart valves.[id number] 04:53:00* Test Item Value Reference Range Interpretation [...] 413) 0 /100 WBC 0 -0 POC-Glucose [id number] 08:55:00* Test Item Value Reference Range Interpretation Comments POC-Glucose Meter (test code = 1538) 71 mg/dL 70-110 : TESTED AT [place] [id number] [facility], [address]: Adult Basic Education Instructor/Safety And Security Officer ID = [id number] for [facility] Lab Interpretation (test code = 75271-3) [facility] [id number] 08:55:00* Test Item Value Reference Range Interpretation Comments POC-GLUCOSE METER (BEAKER) (test code = 1538) 71 mg/dL 70-110 : TESTED AT [place] [id number] [facility], [address]: Adult Basic Education Instructor/Safety And Security Officer ID = [id number] for [facility] [id number] 06:30:00* Test Item Value Reference Range Interpretation Comments PHOSPHORUS (BEAKER) (test code = 604) 3.9 mg/dL 2.3-4.7 Adult Basic Education Instructor ID - RITCHIE [id number] 06:30:00* Test Item Value Reference Range Interpretation Comments MAGNESIUM (BEAKER) (test code = 627) 1.7 mg/dL 1.6-2.6 Adult Basic Education Instructor ID - RITCHIE MBASIC METABOLIC [id number] 06:30:00* Test Item Value Reference Range Interpretation [...] GFR IS NOT APPLICABLE FOR DIALYSIS PATIENTS. Adult Basic Education Instructor ID - RITCHIE [id number] 06:11:00* Test Item Value Reference Range Interpretation Comments PARTIAL THROMBOPLASTIN TIME (BEAKER) (test code = 760) 34.2 seconds 22.5-36.0 PROTHROMBIN TIME/[id number] 06:10:00* Test Item Value Reference Range Interpretation [...] 413) 0 /100 WBC 0 -0 POCT-GLUCOSE [id number] 21:12:00* Test Item Value Reference Range Interpretation Comments POC-GLUCOSE METER (BEAKER) (test code = 1538) 97 mg/dL 70-110 : TESTED AT [facility] [address] [facility], [address]: Adult Basic Education Instructor/Safety And Security Officer ID = [id number] for SUHA AQUINO III POCT-GLUCOSE [id number] 16:54:00* Test Item Value Reference Range Interpretation Comments POC-GLUCOSE METER (BEAKER) (test code = 1538) 83 mg/dL 70-110 : TESTED AT [facility] [address] [facility], [address]: Adult Basic Education Instructor/Safety And Security Officer ID = [id number] for Roberto Davalos POCT-GLUCOSE [id number] 08:10:00* Test Item Value Reference Range Interpretation Comments POC-GLUCOSE METER (BEAKER) (test code = 1538) 74 mg/dL 70-110 : TESTED AT [address], [address]: Adult Basic Education Instructor/Safety And Security Officer ID = [id number] for Roberto Davalos [id number] 06:15:00* Test Item Value Reference Range Interpretation Comments PHOSPHORUS (BEAKER) (test code = 604) 4.1 mg/dL 2.3-4.7 Adult Basic Education Instructor ID - RITCHIE [id number] 06:15:00* Test Item Value Reference Range Interpretation Comments MAGNESIUM (BEAKER) (test code = 627) 1.7 mg/dL 1.6-2.6 Adult Basic Education Instructor ID - RITCHIE MBASIC METABOLIC [id number] 06:15:00* Test Item Value Reference Range Interpretation [...] GFR IS NOT APPLICABLE FOR DIALYSIS PATIENTS. Adult Basic Education Instructor ID - RITCHIE [id number] 06:05:00* Test Item Value Reference Range Interpretation Comments PARTIAL THROMBOPLASTIN TIME (BEAKER) (test code = 760) 39.0 seconds 22.5-36.0 H PROTHROMBIN TIME/[id number] 06:04:00* Test Item Value Reference Range Interpretation [...] 413) 0 /100 WBC 0 -0 POCT-GLUCOSE [id number] 21:08:00* Test Item Value Reference Range Interpretation Comments POC-GLUCOSE METER (BEAKER) (test code = 1538) 92 mg/dL 70-110 : TESTED AT [facility] [address] [facility], [address]: Adult Basic Education Instructor/Safety And Security Officer ID = [id number] for SUHA AQUINO III POCT-GLUCOSE [id number] 16:59:00* Test Item Value Reference Range Interpretation Comments POC-GLUCOSE METER (BEAKER) (test code = 1538) 102 mg/dL 70-110 : TESTED AT [place] [id number] [facility], [address]: Adult Basic Education Instructor/Safety And Security Officer ID = [id number] for CURRYTIFFANIENDY POCT-GLUCOSE [id number] 12:35:00* Test Item Value Reference Range Interpretation Comments POC-GLUCOSE METER (BEAKER) (test code = 1538) 105 mg/dL 70-110 : TESTED AT [address], [address]: Adult Basic Education Instructor/Safety And Security Officer ID = [id number] for CURRY, TIFFANIENDY POCT-GLUCOSE [id number] 07:57:00* Test Item Value Reference Range Interpretation Comments POC-GLUCOSE METER (BEAKER) (test code = 1538) 94 mg/dL 70-110 : TESTED AT [address], [address]: Adult Basic Education Instructor/Safety And Security Officer ID = [id number] for CURRY, TIFFANIENDY BASIC METABOLIC [id number] 06:01:00* Test Item Value Reference Range Interpretation [...] GFR IS NOT APPLICABLE FOR DIALYSIS PATIENTS. Adult Basic Education Instructor ID - MATHEUS [id number] 05:51:00* Test Item Value Reference Range Interpretation Comments PHOSPHORUS (BEAKER) (test code = 604) 3.4 mg/dL 2.3-4.7 Adult Basic Education Instructor ID - MATHEUS [id number] 05:51:00* Test Item Value Reference Range Interpretation Comments MAGNESIUM (BEAKER) (test code = 627) 1.7 mg/dL 1.6-2.6 Adult Basic Education Instructor ID - MATHEUS [id number] 05:24:00* Test Item Value Reference Range Interpretation Comments PARTIAL THROMBOPLASTIN TIME (BEAKER) (test code = 760) 38.9 seconds 22.5-36.0 H PROTHROMBIN TIME/[id number] 05:23:00* Test Item Value Reference Range Interpretation [...] 413) 0 /100 WBC 0 -0 POCT-GLUCOSE [id number] 21:09:00* Test Item Value Reference Range Interpretation Comments POC-GLUCOSE METER (BEAKER) (test code = 1538) 96 mg/dL 70-110 : TESTED AT [facility] [address] [facility], [address]: Adult Basic Education Instructor/Safety And Security Officer ID = [id number] for ESCALERA, TRANG Blood Culture - Routine (Right Venipuncture)2019-06-23 19:01:00* Test Item Value Reference Range Interpretation Comments Result (test code = 6463-4) No [facility] in 5 days [facility] [id number] 19:01:00* Test Item Value Reference Range Interpretation Comments CULTURE (BEAKER) (test code = 1095) No growth in 5 days BLOOD [id number] 19:01:00* Test Item Value Reference Range Interpretation Comments CULTURE (BEAKER) (test code = 1095) No growth in 5 days POCT-GLUCOSE [id number] 17:25:00* Test Item Value Reference Range Interpretation Comments POC-GLUCOSE METER (BEAKER) (test code = 1538) 102 mg/dL 70-110 : TESTED AT [facility] [address] [facility], [address]: Adult Basic Education Instructor/Safety And Security Officer ID = [id number] for Roberto Davalos [id number] 14:53:00* Test Item Value Reference Range Interpretation Comments POTASSIUM (BEAKER) (test code = 379) 3.6 meq/L 3.5-5.1 Adult Basic Education Instructor ID - ANANDIANGRAD, KNEE, 1 OR 2 VIEWS, [id number] 11:25:00Reason for exam:->painFINAL REPORT TECHNIQUE: Frontal and [...] Total left knee arthroplasty. Signed: Adalberto Dallas MDReport Verified Date/Time: 06/23/2019 11:25:52 Reading Location: [address] Radiology Reading Room knee 1 or 2 views [id number] 11:25:00Interface, External Ris In - 06/23/2019 11:28 [...] Verified Date/Time: 06/23/2019 11:25:52 Reading Locatio n: [address] Radiology Reading Room [facility] [id number] 09:27:00* Test Item Value Reference Range Interpretation Comments POC-GLUCOSE METER (BEAKER) (test code = 1538) 88 mg/dL 70-110 : TESTED AT [address], [address]: Adult Basic Education Instructor/Safety And Security Officer ID = [id number] for Roberto Davalos [id number] 07:20:00* Test Item Value Reference Range Interpretation Comments PHOSPHORUS (BEAKER) (test code = 604) 3.2 mg/dL 2.3-4.7 Adult Basic Education Instructor ID - SOFIGBASIC METABOLIC [id number] 06:14:00* Test Item Value Reference Range Interpretation [...] GFR IS NOT APPLICABLE FOR DIALYSIS PATIENTS. Adult Basic Education Instructor ID - MATHEUS [id number] 06:04:00* Test Item Value Reference Range Interpretation Comments MAGNESIUM (BEAKER) (test code = 627) 1.8 mg/dL 1.6-2.6 Adult Basic Education Instructor ID - MATHEUS [id number] 05:35:00* Test Item Value Reference Range Interpretation Comments PARTIAL THROMBOPLASTIN TIME (BEAKER) (test code = 760) 35.9 seconds 22.5-36.0 PROTHROMBIN TIME/[id number] 05:34:00* Test Item Value Reference Range Interpretation [...] 0 /100 WBC 0 -0 Prepare Leuko-Red [id number] 23:54:00* Test Item Value Reference Range Interpretation Comments CROSSMATCH (test code = 2264) COMPATIBLE Unit ABO (test code = 3483961) O Pos UNIT NUMBER (test code = 934-0) [id number] Status (test code = 3988992) TX_TIMEINCHART Blood Bank Product (test code = 2263) RED BLOOD CELLS PRODUCT CODE (test code = 933-2) [id number] [facility] 21:44:[facility]* Test Item Value Reference Range Interpretation Comments POTASSIUM (BEAKER) (test code = 379) 3.7 meq/L 3.5-5.1 Adult Basic Education Instructor ID - DBPOCT-GLUCOSE [id number] 21:17:00* Test Item Value Reference Range Interpretation Comments POC-GLUCOSE METER (BEAKER) (test code = 1538) 104 mg/dL 70-110 : TESTED AT [place] [id number] [facility], [address]: Adult Basic Education Instructor/Safety And Security Officer ID = [id number] for TRANG ESCALERA BASIC METABOLIC [id number] 17:26:00* Test Item Value Reference Range Interpretation [...] GFR IS NOT APPLICABLE FOR DIALYSIS PATIENTS. Adult Basic Education Instructor ID - DBPOCT-GLUCOSE [id number] 12:02:00* Test Item Value Reference Range Interpretation Comments POC-GLUCOSE METER (BEAKER) (test code = 1538) 91 mg/dL 70-110 : TESTED AT [address], [address]: Adult Basic Education Instructor/Safety And Security Officer ID = [id number] for MT TAYLORANAMARIAMARIA FERNANDA POCT-GLUCOSE [id number] 10:02:00* Test Item Value Reference Range Interpretation Comments POC-GLUCOSE METER (BEAKER) (test code = 1538) 99 mg/dL 70-110 : TESTED AT [place] [id number] [facility], [address]: Adult Basic Education Instructor/Safety And Security Officer ID = [id number] for JAMAL AMOR BASIC METABOLIC [id number] 07:49:00* Test Item Value Reference Range Interpretation [...] GFR IS NOT APPLICABLE FOR DIALYSIS PATIENTS. Adult Basic Education Instructor ID Radha DUGAN [id number] 07:40:00* Test Item Value Reference Range Interpretation Comments PARTIAL THROMBOPLASTIN TIME (BEAKER) (test code = 760) 35.0 seconds 22.5-36.0 PROTHROMBIN TIME/[id number] 07:39:00* Test Item Value Reference Range Interpretation [...] 2.5-3.5 for patie nts wiht mechanical heart valves.[id number] 07:35:00* Test Item Value Reference Range Interpretation Comments MAGNESIUM (BEAKER) (test code = 627) 2.1 mg/dL 1.6-2.6 Adult Basic Education Instructor CARLO DUGAN MCBC (HEMOGRAM ONLY)2019-06-22 07:17:00* Test Item Value [...] = 413) 0 /100 WBC 0 -0 [id number] 21:34:00* Test Item Value Reference Range Interpretation Comments MAGNESIUM (BEAKER) (test code = 627) 1.7 mg/dL 1.6-2.6 Adult Basic Education Instructor ID - BSPOCT-GLUCOSE [id number] 21:18:00* Test Item Value Reference Range Interpretation Comments POC-GLUCOSE METER (BEAKER) (test code = 1538) 77 mg/dL 70-110 : TESTED AT [facility] [address] [facility], [address]: Adult Basic Education Instructor/Safety And Security Officer ID = [id number] for Janice Kiran BASIC METABOLIC [id number] 21:04:00* Test Item Value Reference Range Interpretation [...] GFR IS NOT APPLICABLE FOR DIALYSIS PATIENTS. Adult Basic Education Instructor ID - BSPOCT-GLUCOSE [id number] 16:13:00* Test Item Value Reference Range Interpretation Comments POC-GLUCOSE METER (BEAKER) (test code = 1538) 94 mg/dL 70-110 : TESTED AT [facility] [address] [facility], [address]: Adult Basic Education Instructor/Safety And Security Officer ID = [id number] for JAMAL AMOR BASIC METABOLIC [id number] 14:23:00* Test Item Value Reference Range Interpretation [...] GFR IS NOT APPLICABLE FOR DIALYSIS PATIENTS. Adult Basic Education Instructor ID - [place] FPOCT-GLUCOSE [id number] 12:21:00* Test Item Value Reference Range Interpretation Comments POC-GLUCOSE METER (BEAKER) (test code = 1538) 90 mg/dL 70-110 : TESTED AT [facility] [address] [facility], [address]: Adult Basic Education Instructor/Safety And Security Officer ID = [id number] for JAMAL AMOR POCT-GLUCOSE [id number] 08:02:00* Test Item Value Reference Range Interpretation Comments POC-GLUCOSE METER (BEAKER) (test code = 1538) 72 mg/dL 70-110 : TESTED AT [facility] [address] [facility], [address]: Adult Basic Education Instructor/Safety And Security Officer ID = [id number] for JAMAL AMOR [id number] 07:01:00* Test Item Value Reference Range Interpretation Comments PARTIAL THROMBOPLASTIN TIME (BEAKER) (test code = 760) 36.9 seconds 22.5-36.0 H PROTHROMBIN TIME/[id number] 07:00:00* Test Item Value Reference Range Interpretation [...] patie nts wiht mechanical heart valves.BASIC METABOLIC [id number] 06:52:00* Test Item Value Reference Range Interpretation [...] GFR IS NOT APPLICABLE FOR DIALYSIS PATIENTS. Adult Basic Education Instructor ID Radha MERLOS [id number] 06:51:00* Test Item Value Reference Range Interpretation Comments MAGNESIUM (BEAKER) (test code = 627) 1.6 mg/dL 1.6-2.6 Adult Basic Education Instructor ID - CHELITA FCBC (HEMOGRAM ONLY)2019-06-21 06:26:00* Test Item Value [...] 413) 0 /100 WBC 0 -0 POCT-GLUCOSE [id number] 21:32:00* Test Item Value Reference Range Interpretation Comments POC-GLUCOSE METER (BEAKER) (test code = 1538) 71 mg/dL 70-110 : TESTED AT [address], [address]: Adult Basic Education Instructor/Safety And Security Officer ID = [id number] for SUHA AQUINO III BASIC METABOLIC [id number] 21:25:00* Test Item Value Reference Range Interpretation [...] GFR IS NOT APPLICABLE FOR DIALYSIS PATIENTS. Adult Basic Education Instructor ID - [id number] 21:20:00* Test Item Value Reference Range Interpretation Comments PHOSPHORUS (BEAKER) (test code = 604) 2.4 mg/dL 2.3-4.7 Adult Basic Education Instructor ID - [id number] 21:20:00* Test Item Value Reference Range Interpretation Comments MAGNESIUM (BEAKER) (test code = 627) 1.8 mg/dL 1.6-2.6 Adult Basic Education Instructor ID - BSPOCT-GLUCOSE [id number] 16:13:00* Test Item Value Reference Range Interpretation Comments POC-GLUCOSE METER (BEAKER) (test code = 1538) 78 mg/dL 70-110 : TESTED AT [facility] [address] [facility], [address]: Adult Basic Education Instructor/Safety And Security Officer ID = [id number] for Darlyn Brandt CBC with platelet count + automated [id number] 14:21:00* Test Item Value Reference Range Interpretation [...] 450 K/CU MM MPV (test code = 61109-4) 9.7 fL 9.4-12.4 nRBC (test code = [...] % 0-1 Lab Interpretation (test code = 60223-0) Abnormal [facility] W/PLT COUNT & AUTO [id number] 14:21:00* Test Item Value Reference Range Interpretation [...] code = 2801) 1 % 0-1 POCT-GLUCOSE [id number] 11:57:00* Test Item Value Reference Range Interpretation Comments POC-GLUCOSE METER (BEAKER) (test code = 1538) 81 mg/dL 70-110 : TESTED AT [facility] [address] [facility], [address]: Adult Basic Education Instructor/Safety And Security Officer ID = [id number] for Darlyn Brandt RAD, ABDOMEN/KUB, 1 VIEW [id number] 11:49:00Reason for exam:->bowel obstructionShould this be performed [...] Verified Da te/Time: 06/20/2019 11:49:29 Reading Location: [facility] Radiology Reading Room C METABOLIC [id number] 08:56:00* Test Item Value Reference Range Interpretation [...] GFR IS NOT APPLICABLE FOR DIALYSIS PATIENTS. Adult Basic Education Instructor ID - DASIACT-GLUCOSE [id number] 08:11:00* Test Item Value Reference Range Interpretation Comments POC-GLUCOSE METER (BEAKER) (test code = 1538) 72 mg/dL 70-110 : TESTED AT [facility] [address] [facility], [address]: Adult Basic Education Instructor/Safety And Security Officer ID = [id number] for Darlyn Brandt [id number] 02:23:00* Test Item Value Reference Range Interpretation Comments PARTIAL THROMBOPLASTIN TIME (BEAKER) (test code = 760) 37.7 seconds 22.5-36.0 H PROTHROMBIN TIME/[id number] 02:22:00* Test Item Value Reference Range Interpretation [...] patie nts wiht mechanical heart valves.BASIC METABOLIC [id number] 02:10:00* Test Item Value Reference Range Interpretation [...] GFR IS NOT APPLICABLE FOR DIALYSIS PATIENTS. Adult Basic Education Instructor ID - RITCHIE [id number] 01:52:00* Test Item Value Reference Range Interpretation Comments MAGNESIUM (BEAKER) (test code = 627) 1.7 mg/dL 1.6-2.6 Adult Basic Education Instructor CARLO - [place] [facility] [place]2019-06-20 01:30:00* Test Item Value Reference [...] 0 /100 WBC 0 -0 BASIC METABOLIC [id number] 16:26:00* Test Item Value Reference Range Interpretation [...] GFR IS NOT APPLICABLE FOR DIALYSIS PATIENTS. Adult Basic Education Instructor ID - BSBASIC METABOLIC [id number] 13:57:00* Test Item Value Reference Range Interpretation [...] GFR IS NOT APPLICABLE FOR DIALYSIS PATIENTS. Adult Basic Education Instructor ID - [id number] 13:57:00* Test Item Value Reference Range Interpretation Comments MAGNESIUM (BEAKER) (test code = 627) 2.2 mg/dL 1.6-2.6 Adult Basic Education Instructor ID - EMERSONECG 12 [id number] 13:42:28Interface, External Ris In - 06/19/2019 1:42 PM CDTVentricular Rate 88 BPMAtrial Rate 88 BPMP-R Interval 148 msQRS Duration 100 msQ-T Interval 398 msQTC Calculation(Bazett) 481 msP Godwin 56 degreesR Godwin -3 degreesT Godwin 87 degreesNormal sinus rhythmProlonged QTAbnormal ECG18 JUN 2019 17:29PVCs no longer seenConfirmed by MD MATT, ZULEMA ([id number]) on 06/19/2019 1:42:23 [facility] 2019-06-19 09:25:00* Test Item Value Reference Range Interpretation Comments Ammonia (test code = 22127-7) 34 18- 72 mol/L MAVERICK (test code = MAVERICK) Adult Basic Education Instructor ID - FAISAL Lab Interpretation (test code = 82102-8) Normal [facility]2020-03-23 09:25:00* Test Item Value Reference Range Interpretation Comments AMMONIA (BEAKER) (test code = 348) 34 mol/L 18-72 Adult Basic Education Instructor ID - [id number] Echo W/Doppler(CW/PW/Color)2019-06-19 09:05:24Ejection FractionSLEH ECHO HEARTLAB MKCKESSON CPACSInterface, External Ris In - 06/19/2019 9:17 AM CDTTransthoracic Echocardiography Report (TTE) Demographics Patient Name [place] BRYAN Date of Study 06/18/2019 E Gender Male Visit Number 2 [id number] Race Unknown [facility] Number [id number] Number Date of 1960 Referring Physici an Age 58 year(s) [employer] Adrien Josh Interpreting Nestor Roberts Physician Procedure Type [...] Velocity: 2.66 m/s TR Gradient: 28.36 mmHg [facility] Hemoglobin [id number] 08:50:00* Test Item Value Reference Range Interpretation Comments Hemoglobin A1C (test code = 4548-4) 5.8 % 4.3-6.1 Lab Interpretation (test code = 61197-9) Normal [facility]HEMOGLOBIN [id number] 08:50:00* Test Item Value Reference Range Interpretation Comments HEMOGLOBIN A1C (BEAKER) (test code = 368) 5.8 % 4.3-6.1 [id number] 05:52:00* Test Item Value Reference Range Interpretation Comments THYROID STIMULATING HORMONE (BEAKER) (test code = 772) 25.62 uIU/mL 0.35-4.94 H Adult Basic Education Instructor ID - MATHEUS [id number] 05:17:00* Test Item Value Reference Range Interpretation Comments PHOSPHORUS (BEAKER) (test code = 604) 3.5 mg/dL 2.3-4.7 Adult Basic Education Instructor ID - MATHEUS [id number] 05:17:00* Test Item Value Reference Range Interpretation Comments MAGNESIUM (BEAKER) (test code = 627) 2.1 mg/dL 1.6-2.6 Adult Basic Education Instructor ID - MATHEUS LBASIC METABOLIC [id number] 05:17:00* Test Item Value Reference Range Interpretation [...] GFR IS NOT APPLICABLE FOR DIALYSIS PATIENTS. Adult Basic Education Instructor ID - PIAYA [id number] 04:54:00* Test Item Value Reference Range Interpretation Comments PARTIAL THROMBOPLASTIN TIME (BEAKER) (test code = 760) 33.5 seconds 22.5-36.0 PROTHROMBIN TIME/[id number] 04:53:00* Test Item Value Reference Range Interpretation [...] = 413) 0 /100 WBC 0 -0 [id number] 00:55:00* Test Item Value Reference Range Interpretation Comments POTASSIUM (BEAKER) (test code = 379) 2.8 meq/L 3.5-5.1 L Adult Basic Education Instructor ID - MATHEUS [id number] 20:44:00* Test Item Value Reference Range Interpretation Comments POTASSIUM (BEAKER) (test code = 379) 2.9 meq/L 3.5-5.1 L Adult Basic Education Instructor ID - AMER[place] [id number] 20:44:00* Test Item Value Reference Range Interpretation Comments MAGNESIUM (BEAKER) (test code = 627) 2.2 mg/dL 1.6-2.6 Adult Basic Education Instructor ID - AMERICO WRapid Influenza A&B [id number] 17:38:00* Test Item Value Reference Range Interpretation Comments Rapid Influenza A Antigen (test code = 23753-8) Negative Negative, Inconclusive Rapid influenza B Antigen (test code = 21532-5) Negative Negative, Inconclusive Lab Interpretation (test code = 52790-3) [facility] [id number] 17:38:00* Test Item Value Reference Range Interpretation Comments RAPID INFLUENZA A AG (BEAKER) (test code = 1622) Negative Negative, Inconclusive RAPID INFLUENZA B AG (BEAKER) (test code = 1623) Negative Negative, Inconclusive ABORH, [id number] 17:12:00* Test Item Value Reference Range Interpretation Comments Rh Factor (test code = 2589) POS ABO Grouping (test code = 2588) [facility]2020-[facility] 16:55:00* Test Item Value Reference Range Interpretation Comments AMMONIA (BEAKER) (test code = 348) 24 mol/L 18-72 Adult Basic Education Instructor ID - AMERICO GOMEZ, ABDOMEN/KUB, 1 VIEW [id number] 16:24:00Reason for exam:->distentionFINAL REPORT CLINICAL HISTORY: distention [...] MDReport Verified Date/Time: 06/18/2019 16:24:44 Reading Location: [address] Neuro Reading Room Type and screen, [id number] 16:16:00* Test Item Value Reference Range Interpretation Comments ABO/RH AUTOMATED (BEAKER) (test code = 2260) O POSITIVE Ab Scrn (test code = 890-4) NEGATIVE [facility]RAD, CHEST, 1 VIEW, NON [id number] 16:16:00 Reason for exam:->CVL placementShould this be [...] bowel in the upper abdomen.. Prior m hailey dasilvaotomy. There is likely been a prior resection of the left distal clav icle. IMPRESSION: A right subclavian central venous catheter has its tip in the low right atrium. No pneumothorax. Nonspecific, prominent loops of bowel in the upper abdomen Signed: Melissa Barton MDReport Verified Date/Time: 06/18/2019 16:16 :50 Reading Location: [address] Body Reading Room Electronically sign ed by: MELISSA BARTON MD on 06/18/2019 04:16 PM XR chest 1 view portable / [id number] 16:16:00Interface, External Ris In - 06/18/2019 4:19 [...] in the upper abdomen Signed: Melissa Barton Verified Date/Time: 06/18/2019 16:16:50 Reading Location: [facility] C013Y CT Body Reading Room [facility] campusPT/[id number] 16:09:00* Test Item Value Reference Range Interpretation Comments Protime (test code = 5902-2) 17.6 11.9- 14.2 seconds H INR (test code = 6301-6) 1.5 <=5.9 PTT (test code = 26973-4) 35.2 22.5- 36.0 seconds MAVERICK (test code = MAVERICK) Effective 08/24/2018: PT Refe rence Range ChangeNew: 11.9- 14.2 Previous: 11.7-14.7 RECOMMENDED COUMADIN/WARFARIN INR THERAPY RANGESSTANDARD DOSE: 2.0-3.0 Includes: PROPHYLAXIS for venous thrombosis, sys temic embolization; TREATMENT for venous thrombosis and/or pulmonary embolus.HIGH RISK: Target INR is 2.5-3.5 for patients wiht mechanical heart valves. Lab Interpretation (test code = 15242-1) Abnormal [facility]PT/[id number] 16:09:00* Test Item Value Reference Range Interpretation [...] for patie nts wiht mechanical heart valves.PROTHROMBIN TIME/[id number] 16:08:00* Test Item Value Reference Range Interpretation [...] patie nts wiht mechanical heart valves.Comprehensive metabolic [id number] 16:02:00* Test Item Value Reference Range Interpretation Comments Protein, Total (test code = 2885-2) 6.6 6.0- 8.3 gm/dL Albumin (test code = 73779-1) 3.3 g/dL 3.5-5 L Alkaline Phosphatase (test code = 6768-6) 106 U/L 40-150 Total Bilirubin (test code = 1974-) 1.1 mg/dL 0.2-1.2 Sodium (test code = 2951-2) 142 meq/L 136-145 Potassium (test code = 2823-3) 2.8 meq/L 3.5-5.1 L Chloride (test code = 5-0) 111 meq/L 98-107 H CO2 (test code = 2027-9) 22 meq/L 22-29 BUN (test code = 3094-0) 33 mg/dL 7-21 H Creatinine (test code = 0-0) 1.84 mg/dL 0.57-1.25 H Glucose (test code = 2345-7) 92 mg/dL 70-105 Calcium (test code = 16289-6) 8.3 mg/dL 8.4-10.2 L AST (test code = 0-8) 27 U/L 5-34 ALT (test code = 1742-6) 12 U/L 6-55 EGFR (test code = 09446-4) 38 mL/min/1.73 sq m ESTIMATED GFR IS NOT ACCURATE CREATININE CLEARANCE IN PREDICTING GLOMERULAR FILTRATION RATE. ESTIMATED GFR IS NOT APPLICABLE FOR DIALYSIS PATIENTS. MAVERICK (test code = MAVERICK) Adult Basic Education Instructor ID - [place] Lab Interpretation (test code = 44725-8) Abnormal [facility] campusHepatic function [id number] 16:02:00* Test Item Value Reference Range Interpretation Comments Protein, Total (test code = 2885-2) 6.6 6.0- 8.3 gm/dL Albumin (test code = 77247-8) 3.3 g/dL 3.5-5 L Total Bilirubin (test code = 1974-) 1.1 mg/dL 0.2-1.2 Bilirubin, Direct (test code = 1967-) 0.4 mg/dL 0.1-0.5 Alkaline Phosphatase (test code = 6768-6) 106 U/L 40-150 AST (test code = 1919-8) 27 U/L 5-34 ALT (test code = 1742-6) 12 U/L 6-55 MAVERICK (test code = MAVERICK) Adult Basic Education Instructor ID - AMERICO W Lab Interpretation (test code = 77204-7) Abnormal [facility] HospitalEdlyysVPJLTELJRK6497-70-20 16:02:00* Test Item Value Reference Range Interpretation Comments PHOSPHORUS (BEAKER) (test code = 604) 4.0 mg/dL 2.3-4.7 Adult Basic Education Instructor ID - AMER[place] [id number] 16:02:00* Test Item Value Reference Range Interpretation Comments MAGNESIUM (BEAKER) (test code = 627) 1.9 mg/dL 1.6-2.6 Adult Basic Education Instructor ID - AMER[place] WHEPATIC FUNCTION [id number] 16:02:00* Test Item Value Reference Range Interpretation [...] (test code = 347) 12 U/L 6-55 Adult Basic Education Instructor ID Radha DRISCOLL WCOMPREHENSIVE METABOLIC [id number] 16:02:00* Test Item Value Reference Range Interpretation [...] GFR IS NOT APPLICABLE FOR DIALYSIS PATIENTS. Adult Basic Education Instructor CARLO DRISCOLL WLactic acid, [id number] 15:57:00* Test Item Value Reference Range Interpretation Comments Lactate, Venous (test code = 2872) 1.02 mmol/L 0.5-2.2 Specimen moderately hemolyzed MAVERICK (test code = MAVERICK) Adult Basic Education Instructor CARLO Radha AMERICO W Lab Interpretation (test code = 77817-7) Normal [facility] HospitalLACTIC ACID, [id number] 15:57:00* Test Item Value Reference Range Interpretation Comments LACTATE BLOOD VENOUS (2) (BEAKER) (test code = 2872) 1.02 mmol/L 0 .50-2.20 Specimen moderately hemolyzed Adult Basic Education Instructor CARLO Radha AMERICO WCBC W/PLT COUNT & AUTO [id number] 15:51:00* Test Item Value Reference Range Interpretation [...] = 2801) 1 % 0-1 Blood gas, [id number] 15:41:00* Test Item Value Reference Range Interpretation [...] 36 % Lab Interpretation (test code = 08496-7) Abnormal [facility] HospitalBLOOD GAS, [id number] 15:41:00* Test Item Value Reference Range Interpretation [...]
[2019-12-27] MEDS ORDERED: CEFEPIME HCL 2 GM/SOD CHL 0.9% 100 ML BAG IV SCH (22:00)
--- NOTE | 2019-12-27 22:15 | NUR ---
Received pt from ER via stretcher. Pt alert, awake, and oriented x3. Denies any pain or discomfort. Vitals stable. IV intact and patent. No bleeding or swelling noted. Diaper changed for comfort. Call light within reach. Bed alarm on. Pt instructed to call for assistance. Understanding verbalized.
[2019-12-27 22:36] VITALS: BP 125/81
[2019-12-28] VITALS (8 sets, daily range): BP systolic 96–127; BP diastolic 57–87
[2019-12-28] MEDS ORDERED: OLANZAPINE5 MG PO (01:57)
[2019-12-28] MEDS ORDERED: DIVALPROEX SOD250 MG PO (01:57)
[2019-12-28] MEDS ORDERED: POTASSIUM CHLO20 ME1 PO (01:57)
[2019-12-28] MEDS ORDERED: ATIVAN0.5 MG PO (01:57)
[2019-12-28] MEDS ORDERED: DEXTROSE 50% SYRINGE 50 ML IV PRN (03:00)
[2019-12-28] MEDS ORDERED: ACETAMINOPHEN 325 MG TAB PO PRN (03:15)
[2019-12-28] MEDS: CEFEPIME HCL 2 GM/SOD CHL 0.9% 100 ML BAG IV SCH ×3 (06:30→22:00)
[2019-12-28] MEDS: SODIUM CHLORIDE 0.9% 1000ML 1,000 ML IV SCH ×2 (06:31→19:14)
[2019-12-28] MEDS ORDERED: LORAZEPAM 0.5 MG TAB PO PRN (06:45)
[2019-12-28] MEDS: INSULIN REGULAR, HUMAN 100 UNIT/1 ML 3ML VIAL SQ SCH ×4 (07:30→21:00)
[2019-12-28] MEDS ORDERED: INSULIN REGULAR, HUMAN 100 UNIT/1 ML 3ML VIAL SQ SCH (07:30)
[2019-12-28 08:15] LABS: BASOPHILS # (AUTO) 0.1 (0.0-0.1); BASOPHILS % 0.4 % (0.0-1.0); EOSINOPHILS % 0.1 % (0.0-6.0); HEMATOCRIT 24.4 % (38.2-49.6); HEMOGLOBIN 7.8 g/dL (14.0-18.0); LYMPHOCYTES # (AUTO) 0.7 (1.0-3.2); LYMPHOCYTES % 5.1 % (18.0-39.1); MEAN CORPUSCULAR HEMOGLOBIN 29.4 pg (28-32); MEAN CORPUSCULAR VOLUME 92.1 fL (81-99); MONOCYTES # (AUTO) 1.5 (0.2-0.8); NEUTROPHILS # (AUTO) 10.4 (2.1-6.9); NEUTROPHILS % 81.9 % (38.7-80.0); PLATELET COUNT 345 x10e3/uL (140-360); RED BLOOD COUNT 2.65 x10e6/uL (4.3-5.7); RED CELL DISTRIBUTION WIDTH 19.6 % (11.7-14.4)
[2019-12-28 08:46] LABS: ALBUMIN 2.9 g/dL (3.5-5.0); ALKALINE PHOSPHATASE 60 IU/L (40-150); ANION GAP 10.5 mmol/L (8-16); BLOOD UREA NITROGEN 17 mg/dL (7-26); BUN/CREATININE RATIO 18 (6-25); CARBON DIOXIDE 23 mmol/L (22-29); CHLORIDE 110 mmol/L (98-107); CREATININE, SERUM 0.94 mg/dL (0.72-1.25); EST GLOMERULAR FILTRATION RATE > 60 ML/MIN (60-); GLUCOSE 84 mg/dL (74-118); POTASSIUM 3.5 mmol/L (3.5-5.1); SODIUM 140 mmol/L (136-145)
[2019-12-28 08:47] LABS: ALANINE AMINOTRANSFERASE < 6 IU/L (0-55)
[2019-12-28 09:04] LABS: CREATINE KINASE < 7 IU/L (30-200)
[2019-12-28 09:14] LABS: CREATINE KINASE MB < 1.00 ng/mL (0-4.3)
[2019-12-28] MEDS: POTASSIUM CHLORIDE 20 MEQ TAB CR PO SCH ×2 (09:54→18:48)
[2019-12-28] MEDS: DIVALPROEX SODIUM 250 MG TAB...DR PO SCH ×2 (09:54→18:48)
[2019-12-28] MEDS: FERROUS SULFATE 325 MG TAB PO SCH ×2 (09:54→18:48)
[2019-12-28] MEDS: LACTOBACILLUS ACIDOPHILUS CAPSULE PO SCH ×2 (09:54→18:48)
[2019-12-28] MEDS: OLANZAPINE 5 MG TAB PO SCH ×4 (09:55→21:00)
--- NOTE | 2019-12-28 10:30 | History and Physical ---
CHIEF COMPLAINT: The patient is here for acute mental status changes. HISTORY PRESENT ILLNESS: This is a 59-year-old , alert, was in his usual state of health until the staff of the fdc noticed that the patient has acute mental status changes, was very combative towards staff and altered and the patient was behaving inappropriately, and the patient was brought to the emergency room in lieu of possible urinary tract infection. PAST MEDICAL HISTORY: History of hypertension, history of diabetes mellitus, history of congestive heart failure, history of hypothyroidism, history of chronic UTIs, history of anemia, history of anxiety, hyperlipidemia, history of ulcerative colitis, history of ventriculitis in the past, history of psychosis in the past too. PAST SURGICAL HISTORY: Bilateral knee surgery and also apparently an aneurysm repair, a very poor historian. SOCIAL HISTORY: No EtOH. No history of smoking in the past. Lives in a fdc at this time. FAMILY HISTORY: Noncontributory. REVIEW OF SYSTEMS: No chest pain. No shortness of breath. No nausea, no vomiting. No diarrhea. No constipation. No rectal bleeding. No hematochezia. No hematemesis. No blurry vision and no diplopia. Again, the patient is a very poor historian. ALLERGIES: ALLERGIC TO MORPHINE AND OXYCODONE. PHYSICAL EXAMINATION: VITAL SIGNS: Temperature is 98.7, pulse of 118, respirations of 16, blood pressure is 127/87, pulse oximetry of 99% on 2 L of oxygen. HEENT: Normocephalic, atraumatic. The patient is confused. Has very poor oral hygiene. NECK: No JVD present. CVS: S1, S2 normal. Regular rate and rhythm. LUNGS: Decreased air entry into all lung cardenas. Positive for some rhonchi and crackles at lower bases. ABDOMEN: Distended and tender in the left lower quadrant. EXTREMITIES: No clubbing. No cyanosis. Positive for edema bilaterally. Bilateral knee surgeries noted. LABORATORY VALUES: White count is 13,000, hemoglobin of 8.4, hematocrit 26.8. Chemistry shows sodium 141, potassium 3.9, BUN of 15, creatinine of 1.06. AST and ALT are 13 and less than 6. Troponin of 0.013. Serology, coronavirus pending. Urine does show many moderate sediments and many bacteria and was very cloudy. MICROBIOLOGY: Urine culture and blood cultures are pending. IMAGING STUDY: Chest x-ray shows mild cardiomegaly with pulmonary edema, right basilar opacity seen, could represent pneumonia in appropriate setting. ASSESSMENT AND PLAN: The patient was started on cefepime 2 g IV for possible; 1. Pneumonia. 2. The patient has a history of congestive heart failure. Fluid restriction at this time. The patient has 1 L bolus and also is on a 100 mL an hour. We will stop that at this time. 3. Acute mental status changes or toxic encephalopathy. We will continue monitoring his mental status. 4. Electrolyte abnormalities and dehydration. We will go ahead and continue watching his lytes. 5. The patient also has history of hypothyroidism, which we will restart his levothyroxine. 6. History of schizophrenia/psychosis. He is on Depakote. We will start that back again. 7. Iron deficiency anemia. We will continue with iron. Further recommendation per clinical course. We will continue to monitor the patient and check his echocardiogram and further recommendation per clinical course. MD NOE Kaba/MODL /[id number]
--- NOTE | 2019-12-28 13:20 | NUR ---
INFORMED DR. MORALSE PT MORE AGITATED, UNCOOPERATIVE, BELLIGERENT. PSYCHIATRIC CONSULT ORDERED ALONG WITH PRN IV ATIVAN.
[2019-12-28 13:56] LABS: CREATINE KINASE MB 0.4 ng/mL (0-5.0)
[2019-12-28] MEDS: DIPHENOXYLATE/ATROPINE TAB PO PRN (18:48)
--- NOTE | 2019-12-28 19:39 | NUR ---
Received charge of shift report from AM nurse. Walking rounds completed.
[2019-12-28] MEDS ORDERED: AZITHROMYCIN 500MG/NS 250 ML 250 ML IV SCH (21:30)
[2019-12-29] VITALS (8 sets, daily range): BP systolic 96–115; BP diastolic 56–69
--- NOTE | 2019-12-29 | NUR ---
Patient AAOX2-3. bs 94 No insulin coverage need. Continue monitor.
[2019-12-29] MEDS: LEVOTHYROXINE SODIUM 50 MCG TAB PO SCH (05:38)
[2019-12-29] MEDS: CEFEPIME HCL 2 GM/SOD CHL 0.9% 100 ML BAG IV SCH ×2 (05:38→14:07)
--- NOTE | 2019-12-29 06:30 | NUR ---
Patient resting quitly at this time. No c/o pain or discomfort. Patient had six liquid stools.
--- NOTE | 2019-12-29 07:00 | NUR ---
RECEIVED BEDSIDE SHIFT REPORT FROM OFF GOING NIGHT NURSE. PATIENT IN STABLE CONDITION, NO S/S OF DISTRESS NOTED. RESPIRATIONS EVEN AND UNLABORED. IV SITE ASYMPTOMATIC AND PATENT, TRANSPARENT DRESSING C/D/I. BED ALARM APPLIED. BED IN LOWEST POSITION AND LOCKED, SIDE RAILS X 2. CALL LIGHT WITHIN REACH.
[2019-12-29] MEDS: INSULIN REGULAR, HUMAN 100 UNIT/1 ML 3ML VIAL SQ SCH ×4 (07:30→21:00)
--- NOTE | 2019-12-29 08:56 | Progress Note ---
DATE: SUBJECTIVE: 59 year-old male, who comes in with acute mental status changes. The patient is currently still confused, not sure whether this is his baseline. Had a copious amount of diarrhea yesterday. C. diff has been sent out. No chest pain according to the patient. No nausea, no vomiting. Sleeping comfortably currently. MEDICATIONS: Include; levothyroxine, cefepime, and azithromycin. For psych medicines he is taking olanzapine and Depakote. The patient is also on lorazepam as needed for agitation and as needed. Loperamide has been given for diarrhea. OBJECTIVE: VITAL SIGNS: Temperature is 98.5, pulse of 110, blood pressure is 103/59, and pulse oximetry of 100% on 2 L of oxygen. HEENT: Normocephalic and atraumatic. Poor dental hygiene. CVS: S1 and S2 normal. Regular rate and rhythm. LUNGS: Decreased air entry. ABDOMEN: Slightly protuberant. EXTREMITIES: No clubbing. No cyanosis. Positive for edema. LABORATORY STUDIES: White count today is 12,000, hemoglobin 7.8, trending down, platelet count 345, and neutrophil count 10.4. Serology; coronavirus nondetected, C difficile is still pending. Microbiology; urine cultures preliminary shows culture in progress. Blood cultures are negative so far. ASSESSMENT: This is Mr. Venu Hicks with; 1. Pneumonia. The patient is on azithromycin. We will continue the same. The patient has history of congestive heart failure. We will continue with his home medications. 2. Acute mental status changes with toxic encephalopathy. Continue monitoring. Psychiatry on board. Electrolyte abnormalities and dehydration are better. 3. Hypothyroidism. Restart medication. Continue with Depakote. 4. Iron deficiency anemia. We will go ahead and give him some Venofer and also check his iron levels. Further recommendation per clinical course. We will continue to monitor the patient. The patient's echocardiogram showed EF of 40%, concentric LVH and trace TR. Eulogio Deluna MD ASJ/MODL /[id number]
[2019-12-29] MEDS: DIVALPROEX SODIUM 250 MG TAB...DR PO SCH ×3 (08:57→20:21)
[2019-12-29] MEDS: FERROUS SULFATE 325 MG TAB PO SCH ×2 (08:57→16:29)
[2019-12-29] MEDS: POTASSIUM CHLORIDE 20 MEQ TAB CR PO SCH ×2 (08:58→16:29)
[2019-12-29] MEDS: LACTOBACILLUS ACIDOPHILUS CAPSULE PO SCH ×2 (08:58→16:29)
[2019-12-29] MEDS: OLANZAPINE 5 MG TAB PO SCH ×4 (09:00→20:21)
[2019-12-29] MEDS: LORAZEPAM INJ 2 MG/ML VIAL IV PRN ×2 (09:02→13:15)
[2019-12-29 09:41] LABS: BASOPHILS # (AUTO) 0.1 (0.0-0.1); BASOPHILS % 0.6 % (0.0-1.0); EOSINOPHILS # (AUTO) 0.1 (0.0-0.4); EOSINOPHILS % 1.3 % (0.0-6.0); HEMOGLOBIN 7.7 g/dL (14.0-18.0); LYMPHOCYTES # (AUTO) 0.7 (1.0-3.2); LYMPHOCYTES % 7.1 % (18.0-39.1); MEAN CORPUSCULAR HEMOGLOBIN 28.8 pg (28-32); MEAN CORPUSCULAR HGB CONC 30.8 g/dL (31-35); MEAN CORPUSCULAR VOLUME 93.6 fL (81-99); MONOCYTES # (AUTO) 1.3 (0.2-0.8); MONOCYTES % 12.5 % (4.4-11.3); NEUTROPHILS # (AUTO) 8.1 (2.1-6.9); NEUTROPHILS % 78.1 % (38.7-80.0); PLATELET COUNT 303 x10e3/uL (140-360); RED BLOOD COUNT 2.67 x10e6/uL (4.3-5.7); RED CELL DISTRIBUTION WIDTH 19.2 % (11.7-14.4)
[2019-12-29 10:01] LABS: ANION GAP 10.4 mmol/L (8-16); BLOOD UREA NITROGEN 17 mg/dL (7-26); BUN/CREATININE RATIO 18 (6-25); CALCIUM 7.9 mg/dL (8.4-10.2); CARBON DIOXIDE 22 mmol/L (22-29); CHLORIDE 110 mmol/L (98-107); CREATININE, SERUM 0.92 mg/dL (0.72-1.25); EST GLOMERULAR FILTRATION RATE > 60 ML/MIN (60-); GLUCOSE 81 mg/dL (74-118); POTASSIUM 3.4 mmol/L (3.5-5.1); SODIUM 139 mmol/L (136-145)
[2019-12-29 10:13] LABS: % IRON SATURATION 8 % (15-50); IRON 12 ug/dL (65-175); TOTAL IRON BINDING CAPACITY 155 ug/dL (261-478); TRANSFERRIN 111 mg/dL (174-364)
--- NOTE | 2019-12-29 11:51 | Diagnostic Imaging Report ---
EXAMINATION: CHEST SINGLE (PORTABLE) INDICATION: Pneumonia COMPARISON: Chest radiograph 12/27/2019 FINDINGS: LINES/TUBES:None LUNGS:The lungs are moderately inflated. There is perihilar fullness and indistinctness of the pulmonary vasculature. Unchanged right basilar hazy opacities. PLEURA:No pleural effusion or pneumothorax. MEDIASTINUM:Cardiomediastinal silhouette is stably enlarged. Atherosclerotic calcifications of the thoracic aorta. BONES/SOFT TISSUES:No acute osseous injury. Sternotomy wires in place. ABDOMEN:No free air under the diaphragm. IMPRESSION: Unchanged mild cardiomegaly and mild pulmonary interstitial edema. Stable right lower lung hazy opacities may represent atelectasis or alternatively superimposed atypical pneumonia in the proper clinical setting. Signed by: Michael Briggs MD on 12/29/2019 11:47 AM
[2019-12-29] MEDS ORDERED: HALOPERIDOL LACTATE 5 MG/ML VIAL IM PRN (14:15)
[2019-12-29] MEDS: SODIUM CHLORIDE 0.9% 1000ML 1,000 ML IV SCH (15:14)
--- NOTE | 2019-12-29 15:19 | Diagnostic Imaging Report ---
Exam: KUB - 2 views Indication: Abdominal aortic aneurysm Comparison: CT abdomen and pelvis of 11/14/2019 Findings: No radiopaque vascular stents identified. Gaseous dilation of the cecum up to 14 cm. No free air. Radiopaque structure in the right lower quadrant, of uncertain significance. Degenerative changes of the visualized spine. Impression: Marked cecal dilation and multiple other air-filled loops of large and small bowel can be seen in the setting of ileus versus obstruction. No free air. No radiopaque vascular stents identified. Signed by: Michael Briggs MD on 12/29/2019 3:16 PM
--- NOTE | 2019-12-29 15:30 | Diagnostic Imaging Report ---
EXAM: CT Chest WITHOUT intravenous contrast 12/29/2019 2:24 PM INDICATION: Pneumonia COMPARISON: Chest radiograph of earlier the same day, CT abdomen/pelvis of 11/14/2019 TECHNIQUE: Chest was scanned utilizing a multidetector helical scanner from the lung apex through the level of the adrenal glands without administration of IV contrast. Coronal and sagittal reformations were obtained. Routine protocol was performed. IV CONTRAST: None RADIATION DOSE: Total DLP: 557 mGy*cm. Dose modulation, iterative reconstruction, and/or weight based adjustment of the mA/kV was utilized to reduce the radiation dose to as low as reasonably achievable. COMPLICATIONS: None FINDINGS: LINES/ TUBES: None. LUNGS AND AIRWAYS: The central airways are patent. Smooth interlobular septal thickening consistent with pulmonary interstitial edema. No focal pneumonia. No air space edema. PLEURA: Right greater than left trace pleural effusions. Right greater than left lower lobe dependent subsegmental atelectasis with associated underlying pleural calcifications. No pneumothorax. HEART AND MEDIASTINUM: Aortic dissection involves the ascending aorta (likely beginning at the sinotubular junction) and extending through the aortic arch and into the descending aorta thoracic and abdominal aorta. The abdominal course of the dissection was previously visualized on the CT abdomen and pelvis of 11/14/2019. The thyroid gland is normal. Prominent mediastinal lymph nodes do not meet size criteria for lymphadenopathy. The heart is not enlarged. No pericardial effusion. UPPER ABDOMEN: Gaseous distention of the colon, better visualized on the KUB of the same day. No free air. BONES: No acute osseous injury. No suspicious lytic or blastic lesions. SOFT TISSUES: Unremarkable. IMPRESSION: Aortic dissection involves the ascending aorta (likely beginning at the sinotubular junction) and extending through the aortic arch and into the descending aorta thoracic and abdominal aorta. The abdominal course of the dissection was previously visualized on the CT abdomen and pelvis of 11/14/2019. Mild pulmonary interstitial edema. No focal pneumonia. Right greater than left trace pleural effusions and dependent bilateral lower lobe subsegmental atelectasis. Signed by: Michael Briggs MD on 12/29/2019 3:27 PM
[2019-12-29] MEDS: IRON SUCROSE 100 MG in SODIUM CHLORIDE 0.9% 100 ML 100 ML IV SCH (16:28)
[2019-12-29] MEDS ORDERED: AZTREONAM 1 GM/NS 50 ML 50 ML IV SCH (17:00)
[2019-12-29] MEDS: VANCOMYCIN 250MG/5ML ORAL SOLN PO SCH (19:23)
--- NOTE | 2019-12-29 19:33 | NUR ---
Received charge of shift report from AM nurse. Walking rounds completed.
--- NOTE | 2019-12-29 19:35 | NUR ---
COMPLETED BEDSIDE SHIFT REPORT AND ROUNDING WITH ONCOMING NIGHT NURSE. PATIENT IN STABLE CONDITION, NO S/S OF DISTRESS NOTED. RESPIRATIONS EVEN AND UNLABORED. IV SITE ASYMPTOMATIC AND PATENT, TRANSPARENT DRESSING C/D/I. BED ALARM APPLIED. BED IN LOWEST POSITION AND LOCKED, SIDE RAILS X 2. CALL LIGHT WITHIN REACH.
--- NOTE | 2019-12-29 20:14 | Consultation ---
DATE OF CONSULTATION: Pulmonary consultation HISTORY OF PRESENT ILLNESS: An unfortunate 59-year-old gentleman, admitted with altered mental status, baseline schizophrenia, bipolar disorder, history of hypertension, history of abdominal aortic aneurysm repair in 2007, history of ulcerative colitis, recent C diff colitis, urinary tract infection, and hypertension. Born in [place], [place]. 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 ALLERGIES: ALLERGIC TO MORPHINE AND OXYCODONE. MEDICATIONS: care home medications have included Depakote, iron, Levoxyl, Ativan, Zyprexa, and lactobacillus. SOCIAL HISTORY: Nonsmoker. No alcohol use. FAMILY HISTORY: Positive for cancer in the long-term resident. PHYSICAL EXAMINATION: GENERAL: A well-developed white male, looking somewhat older than his stated age. VITAL SIGNS: Temperature 99, pulse 102, respirations 16, blood pressure 100/56. HEAD: Normocephalic, atraumatic. NECK: Trachea midline. LUNGS: Diminished breath sounds, right base. HEART: Regular rhythm. ABDOMEN: Midline surgical scar. EXTREMITIES: Edematous. IMPRESSION: There is evidence of iron deficiency, diabetes, hypertension, and abdominal aortic aneurysm said to have been repaired. Blood sugars are well controlled. There is evidence of urinary tract infection. We will check for C diff colitis urine analysis revealed a few white cells. CT of the chest to evaluate a right lower lobe infiltrate. Replace iron. Evaluation of aneurysm if this has not already been done though, the patient does not appear to be a surgical candidate at this time.he claims to have had an abdominal aneurism repaired in [place] in 2006.\ CT of the brain revealed chronic left frontal infarct. recommend cardiology opinion re aneurism and dissection therapy of c diff colitis defer rx uti if c diff + Thank you for this kind referral dictated by Danie Ochoa thank you. MD FÉLIX Daley/TREV /[id number] MTDD
--- NOTE | 2019-12-29 21:49 | Consultation ---
DATE OF CONSULTATION: 12/29/2019 Psychiatric Consultation REASON FOR CONSULTATION: To evaluate patient's agitation and psychosis. HISTORY OF PRESENT ILLNESS: The patient is a 59-year-old male admitted to the hospital for UTI and pneumonia. Psych consulted for agitation and psychosis. The patient is well known to Psychiatry, during his multiple hospital visits and also at [facility]. He has been combative, agitative, argumentative, hitting staff, throwing things, calling staff names, irritable. Upon evaluation today, the patient was found to be lying in the bed in the room. He is alert, awake, and oriented to situation. He is irritable, somewhat uncooperative. He is loud and impulsive. He reports feeling depressed since he is here. Denies anxiety. Denies any suicidal or homicidal ideation. Denies any hallucinations. He claims he is not sleeping well. He is currently taking his medication and no side effects seen or reported. Per the nurse, the patient has been yelling, cursing, PAST PSYCHIATRIC HISTORY: The patient has history of impulsive disorder, cognitive impairment, learning disability, bipolar. He has never attempted suicide before. Does not drink alcohol, or use any drugs in the recent time. FAMILY HISTORY: Unknown. SOCIAL HISTORY: The patient has been living at a senior care facility. MENTAL STATUS EXAM: The patient is an elderly male, who is alert, awake, and oriented to situation. Mood is irritable and frustrated, angry, depressed. Affect is congruent with mood. Psychomotor state is agitated. Denies suicidal or homicidal ideation. Denies any hallucination. Thought process is concrete. No delusion elicited. Insight and judgment are limited. Memory appears to be grossly intact. CURRENT MEDICATIONS: 1. Zyprexa 5 mg p.o. 4 times a day. 2. Ativan 0.5 IV q.6 hours as needed. 3. Probiotics. 4. Potassium chloride. 5. Ferrous sulfate. 6. Depakote 250 b.i.d. 7. . 8. Ativan 0.5 mg p.o. q.6 hours as needed. 9. . LABORATORY DATA: WBC 10.41, RBC 3.67, hemoglobin 7.7, hematocrit 25, platelets 306. Chemistry, sodium 139, potassium 3.4, chloride 110, CO2 of 22, BUN 17, creatinine 0.96. ASSESSMENT: 1. Bipolar 1 disorder, moderate. 2. Impulse control disorder. 3. History of learning disability. PLAN: 1. Continue Zyprexa 5 mg p.o. four times a day. 2. Continue Ativan 0.5 mg IV q.6h as needed. 3. Increase Depakote 250 mg p.o. 3 times a day from b.i.d. 4. Continue Ativan 0.5 mg p.o. q.6h as needed. 5. Add Zoloft 50 mg p.o. daily. 6. Add Haldol 2 mg IM, take q.6 hours as needed. 7. Add Seroquel p.o. p.r.n. 8. Monitor for agitation. Thank you for this consultation. Dictated by Esmer Stone PA-C MD ALINE ContrerasV/TREV /[id number]
--- NOTE | 2019-12-29 23:57 | NUR ---
Patient yelling out. Patient weill not follow instruction. Informed Charge nurse Staci sup. Keyla.. Patient needs a sitter. Patient continue to have loose stools.Patient resting quitly at this time.
[2019-12-30] VITALS (7 sets, daily range): BP systolic 97–124; BP diastolic 55–69
--- NOTE | 2019-12-30 05:03 | NUR ---
Patient resting at this time. Continue monitor.
--- NOTE | 2019-12-30 05:04 | NUR ---
Patient resting quitly at this time. Continue monitor.
[2019-12-30] MEDS: VANCOMYCIN 250MG/5ML ORAL SOLN PO SCH ×5 (06:00→23:23)
[2019-12-30] MEDS: LEVOTHYROXINE SODIUM 50 MCG TAB PO SCH (06:00)
--- NOTE | 2019-12-30 06:44 | NUR ---
RECEIVED BEDSIDE SHIFT REPORT FROM OFF GOING NURSE. PATIENT IS IN STABLE CONDITION, NO S/S OF DISTRESS NOTED. CALL LIGHT WITHIN REACH. BED IN THE LOWEST POSITION.
[2019-12-30] MEDS: INSULIN REGULAR, HUMAN 100 UNIT/1 ML 3ML VIAL SQ SCH ×4 (07:30→19:53)
[2019-12-30] MEDS: LORAZEPAM INJ 2 MG/ML VIAL IV PRN ×2 (08:31→15:45)
[2019-12-30] MEDS: SERTRALINE HCL 50 MG TAB PO SCH (08:39)
[2019-12-30] MEDS: DIVALPROEX SODIUM 250 MG TAB...DR PO SCH ×3 (08:39→20:00)
[2019-12-30] MEDS: LACTOBACILLUS ACIDOPHILUS CAPSULE PO SCH ×2 (08:39→16:13)
[2019-12-30] MEDS: POTASSIUM CHLORIDE 20 MEQ TAB CR PO SCH ×2 (08:39→16:13)
[2019-12-30] MEDS: FERROUS SULFATE 325 MG TAB PO SCH ×2 (08:39→16:13)
[2019-12-30] MEDS: OLANZAPINE 5 MG TAB PO SCH ×4 (08:39→20:01)
--- NOTE | 2019-12-30 08:40 | NUR ---
APPLIED AIR PUMP TO MATTRESS AT THIS TIME.
[2019-12-30 08:57] LABS: BASOPHILS # (AUTO) 0.1 (0.0-0.1); BASOPHILS % 0.8 % (0.0-1.0); EOSINOPHILS # (AUTO) 0.2 (0.0-0.4); EOSINOPHILS % 3.9 % (0.0-6.0); LYMPHOCYTES # (AUTO) 0.8 (1.0-3.2); LYMPHOCYTES % 12.6 % (18.0-39.1); MEAN CORPUSCULAR HEMOGLOBIN 29.1 pg (28-32); MEAN CORPUSCULAR HGB CONC 30.9 g/dL (31-35); MEAN CORPUSCULAR VOLUME 94.1 fL (81-99); MONOCYTES # (AUTO) 0.8 (0.2-0.8); MONOCYTES % 12.5 % (4.4-11.3); NEUTROPHILS # (AUTO) 4.3 (2.1-6.9); NEUTROPHILS % 69.9 % (38.7-80.0); PLATELET COUNT 268 x10e3/uL (140-360); RED BLOOD COUNT 2.37 x10e6/uL (4.3-5.7); RED CELL DISTRIBUTION WIDTH 18.7 % (11.7-14.4)
[2019-12-30 09:02] LABS: HEMATOCRIT 22.3 % (38.2-49.6); HEMOGLOBIN 6.9 g/dL (14.0-18.0)
--- NOTE | 2019-12-30 09:03 | NUR ---
NOTIFIED DR. MORALES THAT PATIENT'S HGB IS 6.9 TODAY, WAITING ON ORDERS.
[2019-12-30] MEDS ORDERED: SODIUM CHLORIDE 0.9% 250ML 250 ML IV SCH (09:15)
[2019-12-30 09:16] LABS: ANION GAP 8.4 mmol/L (8-16); BLOOD UREA NITROGEN 16 mg/dL (7-26); BUN/CREATININE RATIO 18 (6-25); CALCIUM 7.8 mg/dL (8.4-10.2); CARBON DIOXIDE 22 mmol/L (22-29); CHLORIDE 112 mmol/L (98-107); EST GLOMERULAR FILTRATION RATE > 60 ML/MIN (60-); GLUCOSE 76 mg/dL (74-118); POTASSIUM 3.4 mmol/L (3.5-5.1); SODIUM 139 mmol/L (136-145)
--- NOTE | 2019-12-30 09:56 | Progress Note ---
DATE: SUBJECTIVE: A 59-year-old gentleman, who came in with acute mental status changes. The patient has a history of bipolar disease. Psychiatry has been seen. The patient's medications have been adjusted. Increased Depakote to three times a day and Haldol as needed. The patient is also on Zyprexa as needed and Seroquel as needed. Currently, he is still sleepy and not very cooperative with discussion and/or examination. PHYSICAL EXAMINATION: VITAL SIGNS: Temperature is 98.3, pulse of 78, respirations of 17, blood pressure is 109/69, and pulse oximetry of 100% on room air. HEENT: Normocephalic, atraumatic. Pupils are reactive. Again, poor dental hygiene. CVS: S1, S2 normal. Regular rate and rhythm. LUNGS: Decreased air entry. ABDOMEN: Soft, nontender. EXTREMITIES: No clubbing. No cyanosis. Positive edema. LABORATORY STUDIES: White count is 10.41, hemoglobin of 10.7 down. Chemistry shows sodium 139, potassium 3.5. Iron was 12, TIBC 155, percent saturation of 8, and transferrin of 111. ASSESSMENT: Mr. Hicks with, Possible questionable pneumonia. A CT of the chest was done. CT of the chest revealed mild pulmonary interstitial edema. No focal pneumonia. Left trace pleural effusion depended on bilateral lower segment atelectasis. However, aortic dissection was seen with extension to the aortic arch. Also, CT of the abdomen shows dissection too, visualized earlier. PLAN: 1. The patient at this time does not show any signs of pneumonia. The patient's antibiotic has been changed to aztreonam, see someone development of gram-negative rods in his urine culture for UTI. 2. Dissection of aorta. A consult with Dr. Yusuf has been done. 3. Pneumonia, again ruled out. We will continue with current medication. 4. Bipolar disease, type 1. Psychiatry is on board and medicines have been changed. Further recommendation per clinical course. Disposition will depend on cardiology for evaluation of the dissection, a very poor historian and very poor candidate for surgery at this time. Further recommendation per clinical course and also depends on Cardiology recommendation. Eulogio Deluna MD ASJ/MODL /[id number]
[2019-12-30] MEDS: DIPHENOXYLATE/ATROPINE TAB PO PRN ×2 (12:03→16:13)
[2019-12-30] MEDS: QUETIAPINE FUMARATE 25 MG TAB PO PRN ×2 (12:03→20:01)
[2019-12-30] MEDS: IRON SUCROSE 100 MG in SODIUM CHLORIDE 0.9% 100 ML 100 ML IV SCH (13:45)
[2019-12-30] MEDS ORDERED: SODIUM CHLORIDE 0.9% 250ML 250 ML ONE ×2 (14:57→19:31)
--- NOTE | 2019-12-30 15:15 | NUR ---
STARTED TRANSFUSION OF FIRST UNIT OF PRBC AT THIS 1500, NO S/S OF ADVERSE REACTION NOTED.
--- NOTE | 2019-12-30 15:37 | Progress Note ---
DATE: SUBJECTIVE: Patient is doing better. No distress. Breathing well. PHYSICAL EXAMINATION: VITAL SIGNS: Temperature 98, pulse of 81, blood pressure 101/55. GENERAL: Awake and alert. CHEST: Clear. ABDOMEN: Soft. LABORATORY DATA: Hemoglobin is 6.9. Chemistry reviewed. Chest CT is showing evidence of aortic dissection. ASSESSMENT/PLAN: Mr. Hicks is a 59-year-old male admitted with possible pneumonia. The patient is on antibiotics. CT showing aortic dissection and cardiology has been consulted. We will follow the recommendations. Overall, the patient is stable. Continue current treatment. MD MERARY Romeo/TREV /[id number]
--- NOTE | 2019-12-30 16:17 | Consultation ---
DATE OF CONSULTATION: 12/30/2019 Cardiology Consult Note REASON FOR CONSULT: History of aortic dissection. CHIEF COMPLAINT: Abdominal pain. HISTORY OF PRESENT ILLNESS: A 59-year-old man, who is a shelter resident, who presented with altered mental status, was very combative and behaving inappropriately, was found to have pneumonia and UTI, currently says he is feeling better. Denies any chest pain or shortness of breath, says he has history of chronic aortic dissection, was first diagnosed in 2006, status post surgical repair at that time. PAST MEDICAL HISTORY: Hypertension, diabetes, CHF, hypothyroidism, chronic UTIs, psychosis, and ulcerative colitis. SOCIAL HISTORY: Does not smoke, drink, or abuse drugs. FAMILY HISTORY: Noncontributory. REVIEW OF SYSTEMS: As per HPI, otherwise negative. OUTPATIENT MEDICATIONS: Reviewed. ALLERGIES: ALLERGY TO MORPHINE AND OXYCODONE. BODY AFTER REPORT TITLE: OBJECTIVE: VITAL SIGNS: Temperature afebrile, pulse 81, respiratory rate 19, blood pressure 101/55, saturating 98% on room air. GENERAL: Middle-aged man, in no acute distress. CARDIOVASCULAR: Regular rate and rhythm. No murmurs, rubs, or gallops. LUNGS: Clear to auscultation anteriorly. ABDOMEN: Soft, nontender and nondistended. NEUROLOGIC AND PSYCH: Alert and oriented x1. INPATIENT MEDICATIONS: Reviewed. LABORATORY DATA: Reviewed. Hemoglobin 6.9. GFR is greater than 60. IMAGING DATA: Reviewed. Chest CTA done on 12/28 shows aortic dissection involving the ascending aorta likely beginning at the sino-tubular junction and extending throughout the aortic arch and into the descending aorta and abdominal aorta previously seen on 11/14/2019. ASSESSMENT: Chronic type A aortic dissection. PLAN: His dissection is chronic and has been there for several years per the patient and the patient is currently asymptomatic. Blood pressure is well controlled. There is no vascular compromise, has no acute signs of any organ dysfunction or ischemia to his extremities. No indication for any sort of surgery or intervention at this time. We will continue to monitor his blood pressure and keep it optimized. Echocardiogram was performed. EF was 35% to 40%, did not show any severe aortic regurgitation. Thank you for this consult. We will continue to follow. MD QUENTIN Crowder/TREV /[id number]
--- NOTE | 2019-12-30 19:00 | NUR ---
FIRST UNIT OF PRBC FINISHED AT THIS TIME, PATIENT TOLERATED IT WELL
--- NOTE | 2019-12-30 19:11 | NUR ---
BEDSIDE SHIFT REPORT GIVEN TO ONCOMING NURSE. PATIENT IS IN STABLE CONDITION, NO S/S OF DISTRESS NOTED AT THIS TIME. CALL LIGHT WITHIN REACH. BED IN THE LOWEST POSITION.
[2019-12-31 00:35] VITALS: BP 139/72
[2019-12-31] MEDS: DIPHENOXYLATE/ATROPINE TAB PO PRN ×2 (02:47→09:35)
[2019-12-31] MEDS: LEVOTHYROXINE SODIUM 50 MCG TAB PO SCH (05:33)
[2019-12-31] MEDS: VANCOMYCIN 250MG/5ML ORAL SOLN PO SCH (05:33)
[2019-12-31] MEDS: SODIUM CHLORIDE 0.9% 1000ML 1,000 ML IV SCH ×2 (05:36→07:15)
[2019-12-31 05:43] VITALS: BP 150/75
--- NOTE | 2019-12-31 07:20 | NUR ---
PATIENT IN BED RESTING WITH EYES CLOSED, NO S/S OF DISTRESS NOTED. IV FLUID INFUSING ORDERED. BED IN LOWER POSITION, CALL LIGHT AT REACH.
[2019-12-31] MEDS: INSULIN REGULAR, HUMAN 100 UNIT/1 ML 3ML VIAL SQ SCH ×4 (07:30→21:00)
[2019-12-31] MEDS: FERROUS SULFATE 325 MG TAB PO SCH ×2 (08:30→17:30)
[2019-12-31 09:02] LABS: HEMATOCRIT 27.8 % (38.2-49.6); HEMOGLOBIN 8.8 g/dL (14.0-18.0)
[2019-12-31] MEDS: DIVALPROEX SODIUM 250 MG TAB...DR PO SCH ×3 (09:12→19:39)
[2019-12-31] MEDS: SERTRALINE HCL 50 MG TAB PO SCH (09:13)
[2019-12-31] MEDS: POTASSIUM CHLORIDE 20 MEQ TAB CR PO SCH ×2 (09:13→17:31)
[2019-12-31] MEDS: OLANZAPINE 5 MG TAB PO SCH ×4 (09:13→19:39)
[2019-12-31] MEDS: LACTOBACILLUS ACIDOPHILUS CAPSULE PO SCH ×2 (09:13→17:30)
[2019-12-31 09:26] LABS: ANION GAP 8.2 mmol/L (8-16); BLOOD UREA NITROGEN 11 mg/dL (7-26); BUN/CREATININE RATIO 14 (6-25); CALCIUM 7.8 mg/dL (8.4-10.2); CARBON DIOXIDE 22 mmol/L (22-29); CHLORIDE 110 mmol/L (98-107); CREATININE, SERUM 0.76 mg/dL (0.72-1.25); EST GLOMERULAR FILTRATION RATE > 60 ML/MIN (60-); GLUCOSE 75 mg/dL (74-118); POTASSIUM 3.2 mmol/L (3.5-5.1); SODIUM 137 mmol/L (136-145)
[2019-12-31] MEDS: PIPER-TAZ 3.375 GM 50 ML IV SCH ×3 (09:30→19:39)
[2019-12-31] MEDS: QUETIAPINE FUMARATE 25 MG TAB PO PRN ×2 (09:35→18:47)
--- NOTE | 2019-12-31 11:05 | NUR ---
MD IN TO SEE PATIENT, NEW ORDER RECEIVED AND IMPLEMENTED.
--- NOTE | 2019-12-31 11:05 | Progress Note ---
DATE: SUBJECTIVE: The patient came in with a questionable pneumonia. The patient also has acute mental status changes, has been put on Haldol and increase Depakote, sleeping at this time. Arousable, but goes right back to sleep. OBJECTIVE: VITAL SIGNS: Temperature is 97.3, pulse of 88, respirations of 20, blood pressure is 150/75, pulse oximetry of 100%. HEENT: Normocephalic, atraumatic. Pupils reactive. CVS: S1 and S2 normal. Regular rate and rhythm. ABDOMEN: Soft, nontender, nondistended. EXTREMITIES: No clubbing, no cyanosis. Positive for edema. LABORATORY DATA: Yesterday's urine culture grew Pseudomonas aeruginosa. MEDICATIONS: Include vancomycin q.6 hours. No other antibiotic. The patient also had low H and H. 2 units of PRBC has been received. Also, iron sucrose has been started. We will probably need a GI evaluation for acute blood loss versus acute on chronic anemia. Cardiology consult has been done for chronic type A dissection. The patient is asymptomatic from this. EF was 35% to 40%, did not show any severe regurgitation. We will continue to monitor the patient as per Cardiology and we will follow up with Cardiology. PLAN: Switch from vancomycin to Zosyn. The patient's laboratory values to be done today and we will follow up with consultants. Further recommendation per clinical course. The patient is also getting iron sucrose for iron deficiency. MD NOE Kaba/MODL /[id number]
[2019-12-31 13:00] VITALS: BP 158/74
[2019-12-31] MEDS: IRON SUCROSE 100 MG in SODIUM CHLORIDE 0.9% 100 ML 100 ML IV SCH (14:23)
--- NOTE | 2019-12-31 15:38 | NUR ---
PATIENT ASSISTED WITH DIAPER CHANGE, REPOSITIONED IN BED. CALL LIGHT AT REACH.
[2019-12-31 17:07] VITALS: BP 119/72
[2019-12-31 19:00] VITALS: BP 146/78
[2019-12-31] MEDS: LORAZEPAM INJ 2 MG/ML VIAL IV PRN (19:40)
[2020-01-01] VITALS (8 sets, daily range): BP systolic 114–139; BP diastolic 61–90
[2020-01-01] MEDS: PIPER-TAZ 3.375 GM 50 ML IV SCH ×4 (02:48→21:36)
[2020-01-01] MEDS: DIPHENOXYLATE/ATROPINE TAB PO PRN (02:48)
[2020-01-01] MEDS: SODIUM CHLORIDE 0.9% 1000ML 1,000 ML IV SCH ×2 (05:38→23:18)
[2020-01-01] MEDS: LEVOTHYROXINE SODIUM 50 MCG TAB PO SCH (05:38)
[2020-01-01] MEDS: VANCOMYCIN 250MG/5ML ORAL SOLN PO SCH ×4 (06:33→23:18)
[2020-01-01] MEDS: INSULIN REGULAR, HUMAN 100 UNIT/1 ML 3ML VIAL SQ SCH ×4 (07:30→20:24)
--- NOTE | 2020-01-01 08:53 | Progress Note ---
DATE: SUBJECTIVE: A 59-year-old gentleman who came in with acute mental status changes, was found to have C diff, seen by GI, started on vancomycin 250 mg q.6h. We will continue the same. The patient is currently very sleepy, arousable, goes right back to sleep, agitation noted by the nursing staff. The patient is currently on Depakote, Haldol, olanzapine, and sertraline. The patient antibiotics include Zosyn and vancomycin. Get 2 units of PRBCs probably secondary to iron deficiency. Iron infusion has been ordered. Also, the patient has a dissecting aorta, which has been looked over by Cardiology and stability noted. No current intervention required as per Cardiology. OBJECTIVE: VITAL SIGNS: Temperature is 98.1, pulse of 87, respirations of 18, and pulse oximeter 97%. HEENT: Normocephalic, atraumatic. The patient has poor dental hygiene again. CVS: S1 and S2, regular. ABDOMEN: Soft, nontender, slightly distended. EXTREMITIES: No clubbing, no cyanosis, trace amount of edema. LABORATORY VALUES: Hemoglobin is 8.8 and hematocrit 27.8. Chemistries; potassium is 3.2, calcium is 7.8. Microbiology; urine shows Pseudomonas aeruginosa and C diff was positive. ASSESSMENT: Mr. Venu Hicks with: 1. Urinary tract infection, acute mental status changes. 2. Clostridium difficile colitis. 3. Hypertension. 4. Hyperkalemia. 5. History of bipolar one disease. PLAN: Continue current medications. Replace potassium if needed. BNP will be repeated. Vancomycin will be restarted 250 q.6 hours and continue with Zosyn. Cardiology documented stability of dissection. We will continue to monitor the patient. DISCHARGE DISPOSITION: Back to group home and continue with physical therapy. Psychiatry to follow up with bipolar disease one. Eulogio Deluna MD ASJ/MODL /[id number]
[2020-01-01] MEDS: FERROUS SULFATE 325 MG TAB PO SCH ×2 (09:04→17:23)
[2020-01-01] MEDS: DIVALPROEX SODIUM 250 MG TAB...DR PO SCH ×3 (09:04→20:24)
[2020-01-01] MEDS: LACTOBACILLUS ACIDOPHILUS CAPSULE PO SCH ×2 (09:05→17:23)
[2020-01-01] MEDS: POTASSIUM CHLORIDE 20 MEQ TAB CR PO SCH ×2 (09:05→17:23)
[2020-01-01] MEDS: SERTRALINE HCL 50 MG TAB PO SCH (09:05)
[2020-01-01] MEDS: OLANZAPINE 5 MG TAB PO SCH (09:08)
--- NOTE | 2020-01-01 12:35 | NUR ---
SPOKE WITH BROTHER ABOUT SNF ORDER, GOT PERMISSION TO RETURN TO [facility]. EDUCATED ABOUT [facility], FILED IN CHART. WILL FAX CLINICALS TO FACILITY AND COMPLETE RTF AND COVID FORM.
[2020-01-01] MEDS: LORAZEPAM INJ 2 MG/ML VIAL IV PRN (13:05)
[2020-01-01 14:22] LABS: BASOPHILS # (AUTO) 0.1 (0.0-0.1); BASOPHILS % 1.6 % (0.0-1.0); EOSINOPHILS # (AUTO) 0.5 (0.0-0.4); EOSINOPHILS % 9.7 % (0.0-6.0); HEMATOCRIT 29.8 % (38.2-49.6); HEMOGLOBIN 9.3 g/dL (14.0-18.0); LYMPHOCYTES # (AUTO) 0.7 (1.0-3.2); LYMPHOCYTES % 14.7 % (18.0-39.1); MEAN CORPUSCULAR HEMOGLOBIN 28.1 pg (28-32); MEAN CORPUSCULAR HGB CONC 31.2 g/dL (31-35); MONOCYTES # (AUTO) 0.6 (0.2-0.8); MONOCYTES % 12.1 % (4.4-11.3); NEUTROPHILS # (AUTO) 3.1 (2.1-6.9); NEUTROPHILS % 61.3 % (38.7-80.0); PLATELET COUNT 309 x10e3/uL (140-360); RED BLOOD COUNT 3.31 x10e6/uL (4.3-5.7); RED CELL DISTRIBUTION WIDTH 18.1 % (11.7-14.4)
[2020-01-01 14:39] LABS: ALANINE AMINOTRANSFERASE < 6 IU/L (0-55); ALBUMIN 2.1 g/dL (3.5-5.0); ALBUMIN/GLOBULIN RATIO 0.6 (0.8-2.0); ALKALINE PHOSPHATASE 61 IU/L (40-150); ANION GAP 7.3 mmol/L (8-16); BLOOD UREA NITROGEN 6 mg/dL (7-26); BUN/CREATININE RATIO 7 (6-25); CALCIUM 7.9 mg/dL (8.4-10.2); CARBON DIOXIDE 25 mmol/L (22-29); CHLORIDE 110 mmol/L (98-107); CREATININE, SERUM 0.87 mg/dL (0.72-1.25); EST GLOMERULAR FILTRATION RATE > 60 ML/MIN (60-); GLUCOSE 90 mg/dL (74-118); POTASSIUM 3.3 mmol/L (3.5-5.1); SODIUM 139 mmol/L (136-145)
[2020-01-01] MEDS: LORAZEPAM 0.5 MG TAB PO SCH ×2 (15:00→20:24)
[2020-01-01] MEDS: RISPERIDONE 1 MG TAB PO SCH ×2 (15:00→20:24)
--- NOTE | 2020-01-01 15:42 | Progress Note ---
DATE: 01/01/2020 Cardiology Progress Note SUBJECTIVE: The patient denies chest pain or shortness of breath. OBJECTIVE: VITAL SIGNS: Temperature 98.6 degrees, pulse 80 respiratory rate 16, blood pressure 126/77, and oxygen saturation 94% on room air. GENERAL: Awake, alert, in no acute distress. LUNGS: Clear to auscultation bilaterally. No wheezes or crackles. CARDIAC: Normal rate. Regular rhythm. No murmur. Normal S1 and S2. ABDOMEN: Soft and nontender. EXTREMITIES: No edema. CARDIAC MEDICATIONS: Levothyroxine 50 mcg p.o. daily. LABORATORY DATA: WBC 4.97, hemoglobin 9.2, hematocrit 29.8, and platelets 309. Sodium 139, potassium 3.3, chloride 110, CO2 25, BUN 6, and creatinine 0.87. IMPRESSION: 1. Chronic type A aortic dissection. 2. Chronic systolic heart failure. 3. Urinary tract infection. 4. Altered mental status. 5. Clostridium difficile colitis. 6. Hypertension. RECOMMENDATIONS: The patient's blood pressure is well controlled. Monitor closely. The patient's dissection is reportedly chronic and has been present for several years. No symptoms are reported at this time. Antibiotics per primary service. Continue supportive care. Thank you for this consult. We will continue to follow. Leila Crane MD ABS/MODL /[id number]
--- NOTE | 2020-01-01 19:20 | NUR ---
Pt. resting quietly. Respirations are even and unlabored. IV of Normal saline infusing into his R antecubital area at 50cc/hr. No redness or edema noted at site.
[2020-01-01] MEDS: QUETIAPINE FUMARATE 25 MG TAB PO PRN (21:31)
--- NOTE | 2020-01-01 21:31 | NUR ---
Pt. agitated, screaming loudly, through a coke can across the room. Seroquel 15mg tab. given po. Addendum: 01/02/20 at 0215 by Concetta Ferro RN Seroquel 25mg given po .
--- NOTE | 2020-01-01 22:25 | Progress Note ---
DATE: SUBJECTIVE: The patient is breathing well. No distress, diagnosed with C diff pneumonia, on p.o. vancomycin. Denies any chest pain, nausea, or vomiting. PHYSICAL EXAMINATION: VITAL SIGNS: Temperature 98.3, pulse of 84, and blood pressure 128/69. CHEST: Clear. GENERAL: Awake and alert. LABORATORY DATA: Reviewed. ASSESSMENT AND PLAN: A 59-year-old male who has recurrent Clostridium difficile. The patient is on p.o. vancomycin, chronic type A dissection. Cardiology is following the patient is breathing well. No distress. Continue other treatment. MD MERARY Romeo/TREV /[id number]
[2020-01-02] VITALS: BP 112/63
[2020-01-02 01:11] VITALS: BP 112/63
[2020-01-02] MEDS: PIPER-TAZ 3.375 GM 50 ML IV SCH ×3 (03:28→14:47)
[2020-01-02 04:00] VITALS: BP 114/69
[2020-01-02] MEDS: LEVOTHYROXINE SODIUM 50 MCG TAB PO SCH (06:24)
[2020-01-02] MEDS: VANCOMYCIN 250MG/5ML ORAL SOLN PO SCH ×2 (06:25→11:44)
[2020-01-02 06:45] LABS: BASOPHILS # (AUTO) 0.1 (0.0-0.1); BASOPHILS % 1.3 % (0.0-1.0); EOSINOPHILS # (AUTO) 0.7 (0.0-0.4); EOSINOPHILS % 12.3 % (0.0-6.0); HEMATOCRIT 29.1 % (38.2-49.6); HEMOGLOBIN 9.2 g/dL (14.0-18.0); LYMPHOCYTES # (AUTO) 1.2 (1.0-3.2); LYMPHOCYTES % 20.9 % (18.0-39.1); MEAN CORPUSCULAR HEMOGLOBIN 28.2 pg (28-32); MEAN CORPUSCULAR HGB CONC 31.6 g/dL (31-35); MEAN CORPUSCULAR VOLUME 89.3 fL (81-99); MONOCYTES # (AUTO) 0.8 (0.2-0.8); MONOCYTES % 13.8 % (4.4-11.3); NEUTROPHILS # (AUTO) 2.8 (2.1-6.9); NEUTROPHILS % 50.4 % (38.7-80.0); PLATELET COUNT 312 x10e3/uL (140-360); RED BLOOD COUNT 3.26 x10e6/uL (4.3-5.7)
--- NOTE | 2020-01-02 06:50 | NUR ---
Attempted to start an IV on pt. Pt. refusing.
[2020-01-02 07:17] LABS: ANION GAP 10.1 mmol/L (8-16); BLOOD UREA NITROGEN 7 mg/dL (7-26); BUN/CREATININE RATIO 9 (6-25); CALCIUM 7.9 mg/dL (8.4-10.2); CARBON DIOXIDE 23 mmol/L (22-29); CHLORIDE 109 mmol/L (98-107); CREATININE, SERUM 0.82 mg/dL (0.72-1.25); EST GLOMERULAR FILTRATION RATE > 60 ML/MIN (60-); GLUCOSE 74 mg/dL (74-118); POTASSIUM 3.1 mmol/L (3.5-5.1); SODIUM 139 mmol/L (136-145)
[2020-01-02] MEDS: INSULIN REGULAR, HUMAN 100 UNIT/1 ML 3ML VIAL SQ SCH ×2 (07:30→11:30)
[2020-01-02 08:00] VITALS: BP 121/76
[2020-01-02] MEDS: DIPHENOXYLATE/ATROPINE TAB PO PRN (08:37)
[2020-01-02] MEDS: FERROUS SULFATE 325 MG TAB PO SCH (08:37)
[2020-01-02] MEDS: POTASSIUM CHLORIDE 20 MEQ TAB CR PO SCH (08:38)
[2020-01-02] MEDS: SERTRALINE HCL 50 MG TAB PO SCH (08:38)
[2020-01-02] MEDS: DIVALPROEX SODIUM 250 MG TAB...DR PO SCH ×2 (08:38→14:47)
[2020-01-02] MEDS: LACTOBACILLUS ACIDOPHILUS CAPSULE PO SCH (08:38)
[2020-01-02] MEDS: LORAZEPAM 0.5 MG TAB PO SCH (08:38)
[2020-01-02] MEDS: RISPERIDONE 1 MG TAB PO SCH (08:38)
--- NOTE | 2020-01-02 08:41 | Progress Note ---
DATE: SUBJECTIVE: The patient is a 59-year-old male, who came in with acute confusion and acute mental status changes. The patient is status quo is getting medication from Psychiatry. He is on Haldol and Depakote, which has been increased. The patient is currently on Zosyn for urinary tract infection. OBJECTIVE: VITAL SIGNS: Temperature is 97.9, pulse of 89, respirations 17, blood pressure is 114/69, and pulse oximetry of 99%. HEENT: Normocephalic and atraumatic. Pupils are reactive. CVS: S1 and S2 normal. Regular rate and rhythm. ABDOMEN: Soft, nontender, and nondistended. EXTREMITIES: No clubbing, no cyanosis, no edema. LABORATORY STUDIES: Today's white count is 4.93, hemoglobin of 9.3, hematocrit of 29.8. Chemistry shows sodium 139, potassium 3.3, BUN of 6, and creatinine 0.87, calcium is 7.9, antibodies in IgA and tissue transglutaminase are pending. C diff was positive. ASSESSMENT: This is Mr. Venu Hicks with: 1. Questionable pneumonia and urinary tract infection, currently on Zosyn, responding well. 2. Aortic dissection as per Cardiology. The patient is doing well and dissection is chronic. No intervention at this time. 3. Clostridium difficile. Continue with vancomycin at this time. 4. Urinary tract infection. Continue with Zosyn. 5. Disposition. The patient can be discharged home. 6. detention with vancomycin q.6 hours for the next seven days for Clostridium difficile. 7. Psychiatry to followup with bipolar 1 disease. Further recommendation per clinical course. We will continue to monitor the patient and can be discharged today back to the detention or SNF. MD NOE Kaba/COLLEENL /[id number]
[2020-01-02 09:00] VITALS: BP 121/76
[2020-01-02] MEDS: LORAZEPAM INJ 2 MG/ML VIAL IV PRN (09:43)
--- NOTE | 2020-01-02 09:50 | Progress Note ---
DATE: 01/01/2020 Psychiatric Progress Note SUBJECTIVE: The patient was evaluated and events noted. The patient is in room. He is alert, awake, and oriented to situation. He is calm and cooperative. He denies any depression or anxiety. He denies any hallucination. He denies any side effects to medication. As per the nurse, the patient is continuously to be agitated and combative. He is getting multiple IM medications. ASSESSMENT: 1. Bipolar disorder, mixed, moderate. 2. Impulse control disorder. 3. History of learning disability. PLAN: 1. Discontinue Zyprexa. 2. Add Risperdal 1 mg p.o. 3 times a day. 3. Add Ativan 0.5 mg p.o. 3 times a day. 4. Continue with Seroquel p.r.n. 5. Continue Haldol p.r.n. IM. 6. Continue with Depakote. 7. Continue Ativan p.r.n. 8. Continue Ativan p.r.n. p.o. 9. Continue Zoloft. 10. Monitor for mood. 11. Supportive therapy. Discussed with nursing staff and Case Management. Dictated by Esmer Stone PA-C MD ALINE ContrerasV/TREV /[id number]
[2020-01-02 12:17] VITALS: BP 131/67
--- NOTE | 2020-01-02 13:27 | Progress Note ---
DATE: 01/02/2020 Cardiology Progress Note SUBJECTIVE: The patient denies chest pain or shortness of breath. OBJECTIVE: VITAL SIGNS: Temperature 97.5 degrees, pulse 87, respiratory rate 18, blood pressure 131/67, and oxygen saturation 98% on room air. GENERAL: Awake, alert, in no acute distress. LUNGS: Clear to auscultation bilaterally. No wheezes or crackles. CARDIOVASCULAR: Normal rate. Regular rhythm. No murmur. Normal S1 and S2. ABDOMEN: Soft and nontender. EXTREMITIES: No edema. CARDIAC MEDICATIONS: Levothyroxine 50 mcg p.o. daily. LABORATORY DATA: WBC 5.5, hemoglobin 9.2, hematocrit 29.1, and platelets 312. Sodium 139, potassium 3.1, chloride 109, CO2 23, BUN 7, and creatinine 0.82. IMPRESSION: 1. Chronic type A aortic dissection. 2. Chronic systolic heart failure. 3. Urinary tract infection. 4. Altered mental status. 5. Clostridium difficile colitis. 6. Hypertension. RECOMMENDATIONS: The patient's blood pressure is improving. Given his chronic type A aortic dissection, we will start low-dose losartan. Monitor hemodynamics closely. The patient's dissection is reportedly chronic and has been present for several years. No symptoms are reported at this time. Antibiotics per primary service. Continue supportive care. Thank you for this consult. We will continue to follow. Leila Crane MD ABS/MODL /[id number]
[2020-01-02] MEDS ORDERED: LORAZEPAM 0.5 MG TAB PO SCH (13:55)
--- NOTE | 2020-01-02 14:08 | NUR ---
[facility]FWAY FACILITY DISCHARGE INFORMATION PATIENT HAS BEEN ACCEPTED TO: NAME: [facility] ADDRESS:[id number] [facility] ACCEPTING INVESTIGATIONS CHIEF:NAVA HARRIS MD:NASIM ROOM:[id number] NURSE CALL REPORT TO: [phone] IMM SIGNED AND OBTAINED (if applicable): YES THE FOLLOWING DOCUMENTS MUST ACCOMPANY PATIENT FOR TRANSFER: COPIED CHART: PACKET
--- NOTE | 2020-01-02 14:33 | Progress Note ---
DATE: 01/02/2020 Psychiatric Progress Note SUBJECTIVE: The patient is in the room. He is doing much better. He is calm. He is now getting p.r.n. IM medication or p.r.n. p.o. medication as often. Nurse reports that he is not combative today. He is still very anxious requesting nursing service often. The patient states he is doing well. He denies any side effects to medication. ASSESSMENT: 1. Bipolar disorder, mixed, moderate. 2. Impulse control disorder. 3. History of learning disability. PLAN: 1. Continue Risperdal 1 mg p.o. 3 times a day. 2. Increase Ativan to 0.5 mg 4 times a day. 3. Continue with Depakote 250 mg p.o. 3 times a day. 4. Continue Zoloft 50 mg p.o. daily. 5. Continue p.r.n. Seroquel. 6. Continue p.r.n. Ativan and Haldol. 7. Monitor for mood. 8. Supportive therapy. Dictated by Esmer Stone PA-C Jarrod Anders MD QTV/MODL /[id number]
--- NOTE | 2020-01-02 15:50 | NUR ---
Pt discharged to medical resort at this time. 0 s/s of acute distress noted. Breaths are even and unlabored on room air at time of discharge. Family notified of pt discharge. Pt left on stretcher and left by ambulance.
[2020-01-03] MEDS ORDERED: LOSARTAN POTASSIUM 25 MG TAB PO SCH (09:00)
[2020-01-04 06:11] LABS: ENDOMYSIAL ANTIBODIES, IGA Negative (Negative)
== END 2020-01-02 15:50 | DRG 371 ==
LOC: ER 19:16 → ERHOLD 21:17 → ER 21:35 → MED/SURG3 22:03
PROVIDERS: ADMIT Family Medicine; ATTEND Family Medicine
DX: A04.71 Enterocolitis due to Clostridium difficile, recurrent (principal); G92 Toxic encephalopathy; I71.02 Dissection of abdominal aorta; N39.0 Urinary tract infection, site not specified; F31.62 Bipolar disorder, current episode mixed, moderate; I50.22 Chronic systolic (congestive) heart failure; E11.9 Type 2 diabetes mellitus without complications; R45.87 Impulsiveness; F81.9 Developmental disorder of scholastic skills, unspecified; F20.9 Schizophrenia, unspecified; D50.9 Iron deficiency anemia, unspecified; I11.0 Hypertensive heart disease with heart failure; E86.0 Dehydration; E87.8 Other disorders of electrolyte and fluid balance, not elsewhere classified; Z11.59 Encounter for screening for other viral diseases; E03.9 Hypothyroidism, unspecified
CPT/HCPCS: 36415; 70450; 71045; 71250; 74018; 80048; 80053; 81001; 82270; 82550; 82553; 82607; 82746; 82784; 82948; 83516; 83540; 83605; 83880; 84466; 84484; 85014; 85018; 85025; 85045; 86256; 86850; 86900; 86920; 87040; 87086; 87186; 87493; 93005; 93306; 99285; J0456; J0692; J1630; J1756; J1817; J2060; J2543; J7030; J7050; P9016